=== PATIENT | male | born 1950 | race African-American/Black ===

== ENCOUNTER 2016-06-26 07:30 | Inpatient (IN) | payer OTHER, MEDICARE ==
[2016-08-14] MEDS ORDERED: VANCOMYCIN HCL 1,000 MG in DEXTROSE 5%-WATER 250 ML IV PRN (08:40)
[2016-08-14] MEDS ORDERED: CLINDAMYCIN 600 MG/D5W RTU 600 MG/50 ML RTUPB IV PRN (08:40)
[2016-08-14] MEDS ORDERED: OXYCODONE HCL SR 10 MG TABLET PO PRN (08:43)
[2016-08-14] MEDS ORDERED: LANSOPRAZOLE 15 MG TAB.RAP.DR PO PRN (08:43)
[2016-08-14] MEDS ORDERED: IBUPROFEN 800 MG in NORMAL SALINE 250 ML IV PRN (08:43)
[2016-08-14] MEDS ORDERED: SCOPOLAMINE HYDROBROMIDE 1.5 MG PATCH.TD72 TD PRN (08:44)
[2016-08-14] MEDS ORDERED: BUPIVACAINE INJ/PF LIPOSOME/PF 266 MG/20 ML SDV INFIL PRN (08:44)
[2016-08-14] MEDS ORDERED: LACTATED RINGERS 1000 ML IV PRN (09:00)
[2016-08-14] MEDS ORDERED: LIDOCAINE 0.5% INJ-PF (5 MG/ML) 50 ML SDV SUBCUT PRN (09:00)
[2016-08-14] MEDS ORDERED: THROMBIN (BOVINE) TOPICAL 20000 UNIT VIAL ONE (09:21)
[2016-08-14] MEDS ORDERED: THROMBIN (BOVINE) 5000 UNIT EPITAXIS KIT ONE (09:22)
[2016-08-14] MEDS ORDERED: BUPIVACAINE INJ/PF LIPOSOME/PF 266 MG/20 ML SDV ONE (09:22)
[2016-08-14] MEDS ORDERED: MIDAZOLAM 2 MG/2 ML INJ ONE (09:37)
[2016-08-14] MEDS ORDERED: PROPOFOL INJ 200 MG/20 ML VIAL IV ONE (09:38)
[2016-08-14] MEDS ORDERED: TRANEXAMIC ACID INJ/PF 1,000 MG/10 ML SDV IV ONE ×2 (09:38→13:30)
[2016-08-14] MEDS ORDERED: MORPHINE SULFATE 10 MG/ML INJ ONE (09:39)
[2016-08-14 10:18] LABS: POTASSIUM 4.2 mmol/L (3.6-5.0)
[2016-08-14] MEDS: BUPIVACAINE INJ/PF LIPOSOME/PF 266 MG/20 ML SDV IJ PRN ×2 (10:27→15:55)
[2016-08-14] MEDS ORDERED: MEPERIDINE HCL/PF INJ 25 MG/1 ML DISP.SYRIN IV PRN (10:48)
[2016-08-14] MEDS ORDERED: DIPHENHYDRAMINE HCL 50 MG/ML VIAL IV PRN ×2 (10:48→11:28)
[2016-08-14] MEDS ORDERED: FENTANYL CITRATE INJ/PF 100 MCG/2 ML AMPUL IV PRN ×3 (10:48)
[2016-08-14] MEDS ORDERED: OXYCODONE-ACETAMINOPHEN 5-325 MG TABLET PO PRN ×2 (10:48)
[2016-08-14] MEDS ORDERED: MORPHINE SULFATE 10 MG/ML INJ IV PRN ×3 (10:48→11:28)
[2016-08-14] MEDS ORDERED: PROMETHAZINE HCL INJ 25 MG/1 ML VIAL IV PRN ×2 (10:48)
[2016-08-14] MEDS ORDERED: TRAMADOL HCL 50 MG TABLET PO PRN (11:27)
[2016-08-14] MEDS ORDERED: ONDANSETRON 4 MG TAB.RAPDIS PO PRN (11:28)
[2016-08-14] MEDS ORDERED: MAG HYDROX/AL HYDROX/SIMETH SUSP 30 ML UDCUP PO PRN (11:28)
[2016-08-14] MEDS ORDERED: MORPHINE SULFATE 10 MG/ML INJ IM PRN (11:28)
[2016-08-14] MEDS ORDERED: RINGERS SOLUTION,LACTATED 1,000 ML IV PRN ×2 (11:28→17:38)
[2016-08-14] MEDS ORDERED: OXYCODONE HCL IR 5 MG TABLET PO PRN (11:28)
[2016-08-14] MEDS ORDERED: ZOLPIDEM TARTRATE 5 MG TABLET PO PRN (11:28)
[2016-08-14] MEDS ORDERED: ONDANSETRON HCL INJ/PF 4 MG/2 ML SDV IV PRN (11:28)
--- NOTE | 2016-08-14 11:40 | Operative Report ---
Operative Report DATE OF SURGERY: 08/14/16 PREOPERATIVE DIAGNOSIS: Knee arthritis OPERATION: Right knee arthroplasty SURGEON: MILTON IRVING ANESTHESIA: Spinal TISSUE REMOVED OR ALTERED: Bone to pathology ESTIMATED BLOOD LOSS: Under PROCEDURE: Implants used: Femur: Triathlon #8 CR femur Tibia: #7 tibia Tibial liner: 11 mm CS insert Patella: 40 millimeter oval patella Procedure with the patient supine on the operating table the right the limb is prepped and draped in a sterile fashion. The limb was elevated for exsanguination and the tourniquet inflated to 280 torr. A standard midline median parapatellar approach the knee is taken. Access is gained to the femoral canal through the intercondylar notch. Intramedullary alignment instrumentation used to resect 10 mm of distal femur in 5 of valgus. Sizing guide indicated a size 8 femur. Appropriate cutting jig is then used to fashion anterior posterior and chamfer cuts. A trial reduction femurs performed and this is judged to be adequate. Attention was next turned to the tibia. Using an extra medullary alignment system 9 millimeters was resected off the medial tibial plateau. This is sized to a size 7 tibia. A trial reduction was now performed with a 8 femur and a 7 tibia using a 11 millimeters spacer. It is full extension and central patellofemoral tracking. The articular surface the patella was next resected using an oscillating saw. All trial implants were removed. Polymethylmethacrylate is mixed and used to cement the above implants in place. On adequate curing the cement excess cement was removed the tourniquet was deflated hemostasis obtained the wound is then closed in layers using interrupted Vicryl followed by kiarra. A sterile compressive dressing was applied and the patient returned to recovery room in satisfactory condition.
--- NOTE | 2016-08-14 12:20 | RADIOLOGY REPORT (SQ) ---
EXAM DESCRIPTION: KNEE RIGHT 2 VIEWS COMPLETED DATE/TIME: 08/14/2016 12:11 pm REASON FOR STUDY: Post OP -Long Cassette in PACU M17.11 UNILATERAL PRIMARY OSTEOARTHRITIS, RIGHT KN EE COMPARISON: None. NUMBER OF VIEWS: Two view(s). TECHNIQUE: Digital radiographic images of the right knee post-procedure. LIMITATIONS: None. FINDINGS: BONES: No worrisome or unexpected findings post-procedure. DEVICE: Total knee arthroplasty SOFT TISSUES: No worrisome findings. Expected postoperative soft tissue changes. IMPRESSION: SATISFACTORY POSTOPERATIVE RIGHT KNEE. TECHNICAL DOCUMENTATION: JOB ID: [id number] [employer]- All Rights Reserved
[2016-08-14] MEDS ORDERED: METOCLOPRAMIDE HCL INJ/PF 10 MG/2 ML SDV ONE (12:25)
[2016-08-14] MEDS ORDERED: ONDANSETRON HCL INJ/PF 4 MG/2 ML SDV ONE (12:25)
[2016-08-14] MEDS ORDERED: GLYCOPYRROLATE INJ 0.4 MG/2 ML VIAL ONE (12:25)
[2016-08-14] MEDS ORDERED: LIDOCAINE 2% INJ-PF (20 MG/ML) 10 ML AMPUL ONE (12:25)
[2016-08-14 14:34] LABS: ARTERIAL BLOOD BASE EXCESS 1.2 mmol/L; ARTERIAL BLOOD O2 SATURATION 87.4 % (94-98)
[2016-08-14 16:01] LABS: ABSOLUTE EOSINOPHILS # (AUTO) 0.2 10^3/uL (0.0-0.6); ABSOLUTE LYMPHOCYTES (AUTO) 2.7 10^3/uL (0.5-4.7); ABSOLUTE MONOCYTES (AUTO) 0.9 10^3/uL (0.1-1.4); ABSOLUTE NEUT (AUTO) 4.4 10^3/uL (1.7-8.2); BASOPHILS % (AUTO) 0.3 % (0-2); EOSINOPHILS % (AUTO) 2.7 % (0-6); HEMATOCRIT 32.8 % (37.9-51.0); HEMOGLOBIN 10.4 g/dL (13.5-17.0); HGB HCT DIFFERENCE -1.6; LYMPHOCYTES % (AUTO) 32.7 % (13-45); MEAN CORPUSCULAR HGB CONC 31.8 g/dL (32.0-36.0); MEAN CORPUSCULAR VOLUME 88 fl (80-97); MONOCYTES % (AUTO) 10.5 % (3-13); RED BLOOD COUNT 3.73 10^6/uL (4.35-5.55); SEGMENTED NEUTROPHILS % (AUTO) 53.8 % (42-78); WHITE BLOOD COUNT 8.2 10^3/uL (4.0-10.5)
[2016-08-14 16:06] LABS: PROTHROMBIN TIME 13.6 SEC (11.4-15.4)
[2016-08-14] MEDS ORDERED: NORMAL SALINE INJ/PF 0.9% 10 ML SDV IV PRN (16:26)
[2016-08-14 16:41] LABS: CREATINE KINASE MB 0.49 ng/mL (<4.55)
[2016-08-14 16:42] LABS: TROPONIN I < 0.012 ng/mL
[2016-08-14] MEDS ORDERED: DEXTROSE 40% GEL 15 GM TUBE PO PRN ×2 (17:34)
[2016-08-14] MEDS ORDERED: GLUCAGON,HUMAN RECOMB 1 MG INJ IM PRN (17:34)
[2016-08-14] MEDS ORDERED: DEXTROSE 50%-WATER 25 GM/50 ML DISP.SYRIN IV PRN ×2 (17:34)
--- NOTE | 2016-08-14 17:39 | RADIOLOGY REPORT (SQ) ---
EXAM DESCRIPTION: CHEST SINGLE VIEW COMPLETED DATE/TIME: 08/14/2016 5:23 pm REASON FOR STUDY: resp failure COMPARISON: 03/09/2014 EXAM PARAMETERS: NUMBER OF VIEWS: One view. TECHNIQUE: Single frontal radiographic view of the chest acquired. RADIATION DOSE: NA LIMITATIONS: None. FINDINGS: LUNGS AND PLEURA: No opacities, masses or pneumothorax. No pleural effusion. MEDIASTINUM AND HILAR STRUCTURES: No masses. Contour normal. HEART AND VASCULAR STRUCTURES: The heart size is borderline. This represents a change. There is no alvaro CHF. BONES: No acute findings. HARDWARE: None in the chest. OTHER: No other significant finding. IMPRESSION: Borderline cardiomegaly without CHF. TECHNICAL DOCUMENTATION: JOB ID: [id number]
--- NOTE | 2016-08-14 17:51 | PDOC CONSULTATION ---
Consultation Consult Date: 08/14/16 Attending physician:: MILTON IRVING Consult reason:: Medical management History of Present Illness Admission Date/PCP: 08/14/16 08:00 BHASKAR TURPIN MD Patient complains of: Hypoxia, abnormal EKG History of Present Illness: RAJAT DANIEL is a 66 year old male, with history of obstructive sleep apnea , PTSD, hypertension, type 2 diabetes mellitus, underwent right knee arthroplasty earlier today and was transferred to telemetry [facility]. However while in the gay[place] the patient reportedly was apneic and hypoxic with O2 sat in the high 80s. No hypotension however was noted. An EKG was performed and the patient was placed on BiPAP. EKG revealed accelerated junctional rhythm. Pulmonary was consulted for the hypoxia. Cardiology was consulted for the abnormal EKG. Medicine was consulted for medical management. On evaluation of the patient he is currently awake alert and oriented to 3 spheres. He denies any specific complaints other than the pain from recent surgery on the right knee. He denies any chest congestion or coughing. He denies any shortness of breath at all. Denies any paroxysmal nocturnal dyspnea nor orthopnea. No chest pain at all. Lower extremity chronically swollen. No acute complaints at this time. Past Medical History Past Medical History: Medication reconciliation pending verification from the patient's pharmacist Cardiac Medical History: Reports: Coronary Artery Disease, Myocardial Infarction , Hypertension Denies: Atrial Fibrillation, Congestive Heart Failure, Hyperlipidema - takes Atorvastatin r/t cardiac stent, Peripheral Vascular Disease, Pulmonary Embolism , Heart Murmur Pulmonary Medical History: Reports: Sleep Apnea - CPAP Denies: Asthma, Bronchitis, Chronic Obstructive Pulmonary Disease (COPD), Pneumonia, Respiratory Failure, Tuberculosis Endocrine Medical History: Reports: Diabetes Mellitus Type 2 Denies: Hyperthyroidism, Hypothyroidism Renal/ Medical History: Denies: End Stage Renal Disease Malignancy Medical History: Denies: Lung Cancer GI Medical History: Denies: Crohn's Disease, Gastroesophageal Reflux Disease, Hiatal Hernia Musculoskeltal Medical History: Reports: Arthritis Denies: Fibromyalgia Psychiatric Medical History: Reports: Depression - Anxiety, Post Traumatic Stress Disorder Denies: Bipolar Disorder Past Surgical History Past Surgical History: Reports: Herniorrhaphy - Bilateral Inguinal/Femoral, Orthopedic Surgery Denies: Appendectomy, Cholecystectomy, Colostomy, Coronary Artery Bypass Graft, Gastric Bypass Surgery, Pacemaker, Tonsillectomy Social History Information Source: Patient Smoking Status: Never Smoker Frequency of Alcohol Use: Occasional Hx Recreational Drug Use: No Drugs: None Hx Prescription Drug Abuse: No - Advance Directive Resuscitation Status: Full Code Family History Family History: DM, Hypertension, Other - Heart failure Parental Family History Reviewed: Yes Children Family History Reviewed: Yes Sibling(s) Family History Reviewed.: Yes Medication/Allergy Home Medications: Aspirin [Aspirin 81 mg Chewable Tablet] 81 mg PO DAILY 07/11/12 Citalopram Hydrobromide [Celexa 40 mg Tablet] 40 mg PO QAM 07/11/12 Atorvastatin Calcium [Lipitor 20 mg Tablet] 20 mg PO QHS 06/15/16 Carvedilol 25 mg PO BID 06/15/16 Chromium Picolinate [Chromium Picolinate 200 mcg Capsule] 1 cap PO QAM 06/15/16 Furosemide [Lasix] 20 mg PO TID 06/15/16 Insulin Glargine,Hum.rec.anlog [Lantus] 80 units SQ QHS 06/15/16 Potassium Chloride 20 meq PO QAM 06/15/16 Tramadol HCl 50 mg PO DAILY PRN 06/15/16 Vitamin B Complex 1 each PO DAILY 06/15/16 l-Carnitine Fumarate [L-Carnitine] 200 mg PO QAM 06/15/16 Allergies/Adverse Reactions: Penicillins Allergy (Verified 06/15/16 07:53) Hives, SOB Review of Systems Constitutional: ABSENT: chills, fever(s), headache(s), weakness, weight gain, weight loss Eyes: ABSENT: visual disturbances Ears: ABSENT: hearing changes Nose, Mouth, and Throat: PRESENT: sore throat - From recent intubation. ABSENT : headache(s), mouth pain Cardiovascular: PRESENT: dyspnea on exertion - Chronic, edema - Chronic. ABSENT : chest pain, orthropnea, palpitations Respiratory: ABSENT: cough, dyspnea, hemoptysis, sputum Gastrointestinal: ABSENT: abdominal pain, constipation, diarrhea, hematemesis, hematochezia, melena, nausea, vomiting Genitourinary: ABSENT: difficulty urinating, dysuria, hematuria Musculoskeletal: ABSENT: joint swelling Integumentary: ABSENT: pruritus, rash Neurological: ABSENT: abnormal gait, abnormal speech, confusion, convulsions, dizziness, focal weakness, syncope Psychiatric: ABSENT: anxiety, depression, homidical ideation, suicidal ideation Endocrine: ABSENT: cold intolerance, heat intolerance, polydipsia, polyuria Hematologic/Lymphatic: ABSENT: easy bleeding, easy bruising Physical Exam Vital Signs: Temp Pulse Resp BP Pulse Ox 98.5 F 56 L 18 133/84 H 98 08/14/16 16:50 08/14/16 16:50 08/14/16 16:50 08/14/16 16:50 08/14/16 16:50 Pulse Oximeter Continuous Start: 08/14/16 14: 37 Freq: Status: Complete Document 08/14/16 14:37 [facility] (Rec: 08/14/16 14:38 [facility] ECART_RESP_) Pulse Oximetry Assessment Oxygen Saturation (92-100) 97 Oxygen Delivery Method Bi-pap Fraction of Inspired Oxygen (FIO2) 21 Equipment Usage Initial Set Up Continuous Pulse Oximeter 24 Hour Charge Charge Now Continuous SpO2 Machine # [id number] Pulse Oximeter Continuous Start: 08/14/16 15: 12 Freq: RTQ4 Status: Active Document 08/14/16 16:20 [facility] (Rec: 08/14/16 16:59 [facility] ECART_RESP_) Pulse Oximetry Assessment Oxygen Saturation (92-100) 95 Oxygen Delivery Method Bi-pap Equipment Usage Equipment in Use Continuous SpO2 Machine # 1 Intake & Output 08/13/16 08/14/16 08/15/16 06:59 06:59 06:59 Intake Total 4400 Output Total 2500 Balance 1900 General appearance: PRESENT: no acute distress, cooperative, morbidly obese, other - On CPAP Head exam: PRESENT: atraumatic, normocephalic Eye exam: PRESENT: conjunctiva pink, EOMI, PERRLA. ABSENT: scleral icterus Ear exam: PRESENT: normal external ear exam. ABSENT: drainage Mouth exam: PRESENT: moist, neck supple, tongue midline Throat exam: ABSENT: post pharyngeal erythema, tonsillar erythema Neck exam: ABSENT: carotid bruit, JVD, lymphadenopathy, thyromegaly Respiratory exam: PRESENT: clear to auscultation roman. ABSENT: rales, rhonchi, wheezes Cardiovascular exam: PRESENT: RRR, +S1, +S2. ABSENT: diastolic murmur, rubs, systolic murmur Pulses: PRESENT: normal dorsalis pedis pul Vascular exam: PRESENT: normal capillary refill GI/Abdominal exam: PRESENT: normal bowel sounds, soft. ABSENT: distended - Obese, guarding, mass - Limited due to increased abdominal girth, organolmegaly - Limited gently increased abdominal, rebound, tenderness Rectal exam: PRESENT: deferred Extremities exam: PRESENT: full ROM, other - Trace to +1 edema bilateral. ABSENT: calf tenderness, clubbing Neurological exam: PRESENT: alert, awake, oriented to person, oriented to place , oriented to time, oriented to situation, CN II-XII grossly intact. ABSENT: motor sensory deficit Psychiatric exam: PRESENT: appropriate affect, normal mood. ABSENT: homicidal ideation, suicidal ideation Skin exam: PRESENT: dry, intact, warm. ABSENT: cyanosis, rash Results Laboratory Results: 08/14/16 15:52 08/14/16 08:12 08/14/16 08/14/16 08/14/16 08:12 14:10 15:52 WBC 8.2 RBC 3.73 L Hgb 10.4 L Hct 32.8 L MCV 88 MCH 28.0 MCHC 31.8 L RDW 14.0 Plt Count 135 L Seg Neutrophils % 53.8 Lymphocytes % 32.7 Monocytes % 10.5 Eosinophils % 2.7 Basophils % 0.3 Absolute Neutrophils 4.4 Absolute Lymphocytes 2.7 Absolute Monocytes 0.9 Absolute Eosinophils 0.2 Absolute Basophils 0.0 Carbonic Acid 1.84 H HCO3/H2CO3 Ratio 15:1 ABG pH 7.29 L ABG pCO2 61.0 H ABG pO2 59.7 L ABG HCO3 28.9 H ABG O2 Saturation 87.4 L ABG Base Excess 1.2 FiO2 ROOM AIR Potassium 4.2 Glucose 124 H 08/14/16 08/14/16 15:52 15:52 Creatine Kinase 96 CK-MB (CK-2) 0.49 Troponin I < 0.012 Impressions: Knee X-Ray 08/14/16 11:36 IMPRESSION: SATISFACTORY POSTOPERATIVE RIGHT KNEE. Assessment & Plan - Diagnosis (1) Respiratory acidosis Is this a current diagnosis for this admission?: Yes (2) Obstructive sleep apnea Is this a current diagnosis for this admission?: Yes (3) Abnormal EKG Is this a current diagnosis for this admission?: Yes (4) Obesity hypoventilation syndrome Is this a current diagnosis for this admission?: Yes (5) Diabetes mellitus type 2 in obese Is this a current diagnosis for this admission?: Yes (6) Essential hypertension Is this a current diagnosis for this admission?: Yes (7) PTSD (post-traumatic stress disorder) Is this a current diagnosis for this admission?: Yes (8) Hepatitis C Qualifiers: Viral hepatitis chronicity: unspecified Hepatic coma status: without hepatic coma Qualified Code(s): B19.20 - Unspecified viral hepatitis C without hepatic coma Is this a current diagnosis for this admission?: Yes (9) BPH (benign prostatic hyperplasia) Qualifiers: Lower urinary tract symptom presence: presence of symptoms unspecified Qualified Code(s): N40.0 - Benign prostatic hyperplasia without lower urinary tract symptoms Is this a current diagnosis for this admission?: Yes (10) Anxiety and depression Is this a current diagnosis for this admission?: Yes - Time Time Spent: 50 to 70 Minutes - Plan Summary Plan Summary: The patient's hypoxia and apneic episode likely related to his obstructive sleep apnea with likely obesity hypoventilation syndrome with recent anesthesia. Expect acidosis to resolve when patient is fully awake and CPAP has been restored already. In the meantime bradycardia could be secondary to acidosis and expect the heart rate to improve as well. If not we may need to decrease the dose of his beta-joan. In the meantime I will put the patient on sliding scale insulin. Continue supplemental oxygen. Avoid too much sedation. Thank you so much for this consultation, we will follow the patient with you.
--- NOTE | 2016-08-14 17:59 | EKG REPORT ---
SEVERITY:- ABNORMAL ECG - BORDERLINE LEFT AXIS DEVIATION MOST LIKELY ECTOPIC ATRIAL BRADYCARDIA.GET 'ELVIN LEAD ' EKG. : Confirmed by: Yulia Ramos MD 14-Aug-2016 17:58:47
[2016-08-14] MEDS ORDERED: PREGABALIN 75 MG CAPSULE PO SCH (18:00)
[2016-08-14] MEDS ORDERED: (PENDING PHARMACY ID) (Carvedilol [Carvedilol] 25 MG) PO SCH (18:00)
[2016-08-14] MEDS: SENNOSIDES/DOCUSATE 8.6-50 MG 1 EACH TABLET PO SCH (18:13)
[2016-08-14] MEDS: FUROSEMIDE 20 MG TABLET PO SCH (18:13)
[2016-08-14 18:14] LABS: ARTERIAL BLOOD BASE EXCESS 1.5 mmol/L; ARTERIAL BLOOD O2 SATURATION 90.1 % (94-98)
[2016-08-14] MEDS: IBUPROFEN 800 MG in NORMAL SALINE 250 ML IV SCH (18:14)
[2016-08-14] MEDS: MORPHINE SULFATE 10 MG/ML INJ IV PRN (21:22)
[2016-08-14] MEDS: ATORVASTATIN CALCIUM 20 MG TABLET PO SCH (21:22)
[2016-08-14] MEDS: RIVAROXABAN 10 MG TABLET PO SCH (21:22)
[2016-08-14] MEDS: OXYCODONE HCL SR 10 MG TABLET PO SCH (21:23)
[2016-08-14] MEDS: PREGABALIN 75 MG CAPSULE PO SCH (21:23)
[2016-08-14] MEDS: CARVEDILOL 12.5 MG TABLET PO SCH (21:24)
[2016-08-14 22:54] LABS: CREATINE KINASE MB 0.61 ng/mL (<4.55)
[2016-08-14 22:58] LABS: TROPONIN I < 0.012 ng/mL
[2016-08-14] MEDS ORDERED: VANCOMYCIN HCL 1,000 MG in DEXTROSE 5%-WATER 250 ML IV ONE (23:30)
[2016-08-15] MEDS: IBUPROFEN 800 MG in NORMAL SALINE 250 ML IV SCH ×3 (02:14→17:43)
[2016-08-15] MEDS: MORPHINE SULFATE 10 MG/ML INJ IV PRN (02:23)
[2016-08-15 04:16] LABS: HEMATOCRIT 32.4 % (37.9-51.0); HEMOGLOBIN 10.3 g/dL (13.5-17.0); HGB HCT DIFFERENCE -1.5; MEAN CORPUSCULAR HEMOGLOBIN 28.1 pg (27.0-33.4); MEAN CORPUSCULAR VOLUME 88 fl (80-97); RED BLOOD COUNT 3.68 10^6/uL (4.35-5.55); RED CELL DISTRIBUTION WIDTH 13.9 % (11.5-14.0); WHITE BLOOD COUNT 9.4 10^3/uL (4.0-10.5)
[2016-08-15 04:36] LABS: ALBUMIN 2.9 g/dL (3.5-5.0); ANION GAP 8 (5-19); BLOOD UREA NITROGEN 22 mg/dL (7-20); CALCIUM 8.5 mg/dL (8.4-10.2); CARBON DIOXIDE 26 mmol/L (22-30); CHLORIDE 103 mmol/L (98-107); CREATINE KINASE 85 U/L (55-170); GLUCOSE 164 mg/dL (75-110); MAGNESIUM 1.7 mg/dL (1.6-2.3); PHOSPHORUS 3.9 mg/dL (2.5-4.5); POTASSIUM 4.6 mmol/L (3.6-5.0); SODIUM 136.5 mmol/L (137-145)
[2016-08-15 04:46] LABS: CREATINE KINASE MB 0.43 ng/mL (<4.55)
[2016-08-15 04:50] LABS: TROPONIN I < 0.012 ng/mL
[2016-08-15] MEDS: LANSOPRAZOLE 30 MG TAB.RAP.DR PO SCH (06:25)
[2016-08-15 06:43] LABS: ARTERIAL BLOOD BASE EXCESS 0.6 mmol/L; ARTERIAL BLOOD O2 SATURATION 98.6 % (94-98)
[2016-08-15] MEDS ORDERED: (PENDING PHARMACY ID) (Citalopram Hydrobromide [Celexa 40 Mg Tablet] 40 MG) PO SCH (08:00)
[2016-08-15] MEDS ORDERED: CHROMIUM PICOLINATE PO SCH (08:00)
[2016-08-15] MEDS ORDERED: [UNRECOGNIZED DRUG - OTHER] PO SCH (08:00)
[2016-08-15] MEDS: POTASSIUM CHLORIDE 10 MEQ TABLET.SA PO SCH (08:04)
[2016-08-15] MEDS: CITALOPRAM HYDROBROMIDE 20 MG TABLET PO SCH (08:05)
[2016-08-15] MEDS: CARVEDILOL 12.5 MG TABLET PO SCH ×2 (09:30→22:21)
[2016-08-15] MEDS: PRENATAL VITAMIN W-O CA NO5/FE FUMARATE/FA CAPSULE PO SCH (09:31)
[2016-08-15] MEDS: ASPIRIN 81 MG TABLET, CHEWABLE PO SCH (09:31)
[2016-08-15] MEDS: SENNOSIDES/DOCUSATE 8.6-50 MG 1 EACH TABLET PO SCH ×2 (09:31→17:42)
[2016-08-15] MEDS: OXYCODONE HCL SR 10 MG TABLET PO SCH ×2 (09:32→22:21)
[2016-08-15] MEDS: PREGABALIN 75 MG CAPSULE PO SCH ×2 (09:32→22:21)
[2016-08-15] MEDS: FUROSEMIDE 20 MG TABLET PO SCH ×3 (09:32→17:41)
[2016-08-15] MEDS ORDERED: MULTIVIT-STRESS FORMULA/ZINC TABLET PO SCH (10:00)
[2016-08-15] MEDS ORDERED: (PENDING PHARMACY ID) (Vitamin B Complex [Vitamin B Complex] 1 EACH) PO SCH (10:00)
--- NOTE | 2016-08-15 12:13 | PDOC CONSULTATION ---
Consultation Consult Date: 08/14/16 Attending physician:: MILTON IRVING Consult reason:: Abnormal EKG History of Present Illness Admission Date/PCP: 08/14/16 08:00 BHASKAR TURPIN MD Patient complains of: Shortness of breath History of Present Illness: RAJAT DANIEL is a 66 year old male, with history of obstructive sleep apnea , PTSD, hypertension, type 2 diabetes mellitus, underwent right knee arthroplasty earlier today and was transferred to telemetry [facility]. However while in the [facility] the patient reportedly was apneic and hypoxic with O2 sat in the high 80s. No hypotension however was noted. An EKG was performed and the patient was placed on BiPAP. EKG revealed accelerated junctional rhythm. Pulmonary was consulted for the hypoxia. Cardiology was consulted for the abnormal EKG. Medicine was consulted for medical management. On evaluation of the patient he is currently awake alert and oriented 3. He denies any specific complaints other than the pain from recent surgery on the right knee. He denies any chest congestion or coughing. He denies any shortness of breath at all. Denies any paroxysmal nocturnal dyspnea nor orthopnea. No chest pain at all. Lower extremity chronically swollen. No acute complaints at this time. On my review of EKG, patient actually was noted to have sinus bradycardia. A repeat EKG was ordered to be performed next morning. Past Medical History Cardiac Medical History: Reports: Coronary Artery Disease, Myocardial Infarction , Hypertension Denies: Atrial Fibrillation, Congestive Heart Failure, Hyperlipidema - takes Atorvastatin r/t cardiac stent, Peripheral Vascular Disease, Pulmonary Embolism , Heart Murmur Pulmonary Medical History: Reports: Sleep Apnea - CPAP Denies: Asthma, Bronchitis, Chronic Obstructive Pulmonary Disease (COPD), Pneumonia, Respiratory Failure, Tuberculosis Endocrine Medical History: Reports: Diabetes Mellitus Type 2 Denies: Hyperthyroidism, Hypothyroidism Renal/ Medical History: Denies: End Stage Renal Disease Malignancy Medical History: Denies: Lung Cancer GI Medical History: Denies: Crohn's Disease, Gastroesophageal Reflux Disease, Hiatal Hernia Musculoskeltal Medical History: Reports: Arthritis Denies: Fibromyalgia Psychiatric Medical History: Reports: Depression - Anxiety, Post Traumatic Stress Disorder Denies: Bipolar Disorder Past Surgical History Past Surgical History: Reports: Herniorrhaphy - Bilateral Inguinal/Femoral, Orthopedic Surgery Denies: Appendectomy, Cholecystectomy, Colostomy, Coronary Artery Bypass Graft, Gastric Bypass Surgery, Pacemaker, Tonsillectomy Social History Information Source: Patient Smoking Status: Never Smoker Frequency of Alcohol Use: Occasional Hx Recreational Drug Use: No Drugs: None Hx Prescription Drug Abuse: No - Advance Directive Resuscitation Status: Full Code Family History Family History: DM, Hypertension, Other - Heart failure Parental Family History Reviewed: Yes Children Family History Reviewed: Yes Sibling(s) Family History Reviewed.: Yes Medication/Allergy Home Medications: Aspirin [Aspirin 81 mg Chewable Tablet] 81 mg PO DAILY 07/11/12 Citalopram Hydrobromide [Celexa 40 mg Tablet] 40 mg PO QAM 07/11/12 Atorvastatin Calcium [Lipitor 20 mg Tablet] 20 mg PO QHS 06/15/16 Carvedilol 25 mg PO BID 06/15/16 Chromium Picolinate [Chromium Picolinate 200 mcg Capsule] 1 cap PO QAM 06/15/16 Furosemide [Lasix] 20 mg PO TID 06/15/16 Insulin Glargine,Hum.rec.anlog [Lantus] 80 units SQ QHS 06/15/16 Potassium Chloride 20 meq PO QAM 06/15/16 Tramadol HCl 50 mg PO DAILY PRN 06/15/16 Vitamin B Complex 1 each PO DAILY 06/15/16 l-Carnitine Fumarate [L-Carnitine] 200 mg PO QAM 06/15/16 Allergies/Adverse Reactions: Penicillins Allergy (Verified 06/15/16 07:53) JOVANI Lowery Review of Systems Review of Systems: Please see history of present illness and past medical history as wall. Constitutional: No fever or chills reported. Head : No recent chronic headaches, recent head injury. Eyes: No recent eye pain, diplopia, redness, discharge, acute visual changes. Ears: No recent chronic ear pain, acute hearing loss, ear discharge. Oral cavity: No recent ulcerations, bleeding, oral cavity discomfort. Patient has noted some sore throat. Neck: No recent acute neck pain reported. Hematologic: No recent easy bruising or bleeding or hematologic malignancy reported. Lymphatic: No recent lymphatic malignancy, chronic lymphadenopathy reported yet Cardiovascular system review: See history of present illness. Chronic pedal edema noted. Respiratory system review: No recent chronic cough, hemoptysis, blood clots in the lungs reported. Mild Shortness of breath on exertion. Describes history of sleep apnea. Gastrointestinal system review: Negative for any recent acute or chronic abdominal pain, hematemesis, melena, recent change in bowel habits. Genitourinary system review: No recent acute or chronic hematuria, flank pain, UTI etc. reported. Skin system review: Negative for any recent abnormal bruising, no rash, no pruritus reported. Has noted vitiligo. Neurologic: No prior history of strokes, mini strokes, seizure disorder. Psychologic: No history of major psychosis or major depression reported. Musculoskeletal: Minor aches and pains reported. No acute joint swelling reported. Endocrine: No recent polyuria, polydipsia, recent heat or cold intolerance. Physical Exam Vital Signs: Temp Pulse Resp BP Pulse Ox 98.1 F 53 L 18 134/82 H 100 08/14/16 17:50 08/14/16 17:50 08/14/16 17:50 08/14/16 17:50 08/14/16 17:50 Pulse Oximeter Continuous Start: 08/14/16 14: 37 Freq: Status: Complete Document 08/14/16 14:37 [facility] (Rec: 08/14/16 14:38 [facility] ECART_RESP_) Pulse Oximetry Assessment Oxygen Saturation (92-100) 97 Oxygen Delivery Method Bi-pap Fraction of Inspired Oxygen (FIO2) 21 Equipment Usage Initial Set Up Continuous Pulse Oximeter 24 Hour Charge Charge Now Continuous SpO2 Machine # [id number] Pulse Oximeter Continuous Start: 08/14/16 15: 12 Freq: RTQ4 Status: Active Document 08/14/16 16:20 [facility] (Rec: 08/14/16 16:59 [facility] ECART_RESP_) Pulse Oximetry Assessment Oxygen Saturation (92-100) 95 Oxygen Delivery Method Bi-pap Equipment Usage Equipment in Use Continuous SpO2 Machine # 1 Intake & Output 08/13/16 08/14/16 08/15/16 06:59 06:59 06:59 Intake Total 4400 Output Total 2500 Balance 1900 Exam: GENERAL: well-nourished and in no acute distress. Alert and oriented x3 HEAD: Atraumatic, normocephalic. EYES: Pupils equal round and reactive to light, extraocular movements intact, sclera anicteric, conjunctiva are normal. ENT: TMs normal, nares patent, oropharynx clear without exudates. Moist mucous membranes. No oral ulcerations or bleeding gums noted NECK: supple without lymphadenopathy. Trachea is central. No cervical or axillary lymphadenopathy noted. Carotids are 2+, JVD WNL LUNGS: Respiration seems nonlabored, no significant accessory muscle action noted. Breath sounds clear to auscultation bilaterally and equal noted. No wheezes rales or rhonchi noted. No significant dullness noted on percussion. CHEST: Palpation of the chest wall shows no significant chest wall tenderness. No other significant abnormalities noted. 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 ABDOMEN: Soft, no significant tenderness appreciated, normoactive bowel sounds. No guarding, no rebound. No rigidity noted . No masses appreciated. EXTREMITIES: Pedal pulses are 1-2+, no calf tenderness noted. No clubbing or cyanosis. 1+ pedal edema noted NEUROLOGICAL: Focused neurological exam showed no significant neurologic deficit. Normal speech, no focal weakness appreciated. PSYCH: Normal mood, normal affect. Judgment and insight within normal limits. SKIN: No significant ecchymosis, ulcerations or signs of pruritus noted. Vitiligo rash noted scattered, more on the lower extremity. MUSCULOSKELETAL EXAM: No significant joint swelling noted. Results Laboratory Results: 08/14/16 15:52 08/14/16 08:12 08/14/16 08/14/16 08/14/16 08:12 14:10 15:52 WBC 8.2 RBC 3.73 L Hgb 10.4 L Hct 32.8 L MCV 88 MCH 28.0 MCHC 31.8 L RDW 14.0 Plt Count 135 L Seg Neutrophils % 53.8 Lymphocytes % 32.7 Monocytes % 10.5 Eosinophils % 2.7 Basophils % 0.3 Absolute Neutrophils 4.4 Absolute Lymphocytes 2.7 Absolute Monocytes 0.9 Absolute Eosinophils 0.2 Absolute Basophils 0.0 Carbonic Acid 1.84 H HCO3/H2CO3 Ratio 15:1 ABG pH 7.29 L ABG pCO2 61.0 H ABG pO2 59.7 L ABG HCO3 28.9 H ABG O2 Saturation 87.4 L ABG Base Excess 1.2 FiO2 ROOM AIR Potassium 4.2 Glucose 124 H 08/14/16 17:55 WBC RBC Hgb Hct MCV MCH MCHC RDW Plt Count Seg Neutrophils % Lymphocytes % Monocytes % Eosinophils % Basophils % Absolute Neutrophils Absolute Lymphocytes Absolute Monocytes Absolute Eosinophils Absolute Basophils Carbonic Acid 1.64 H HCO3/H2CO3 Ratio 17:1 ABG pH 7.33 L ABG pCO2 54.5 H ABG pO2 62.6 L ABG HCO3 28.2 H ABG O2 Saturation 90.1 L ABG Base Excess 1.5 FiO2 21% Potassium Glucose 08/14/16 08/14/16 15:52 15:52 Creatine Kinase 96 CK-MB (CK-2) 0.49 Troponin I < 0.012 EKG Comments: Sinus bradycardia, no acute ST-T wave changes noted. Impressions: Chest X-Ray 08/14/16 00:00 IMPRESSION: Borderline cardiomegaly without CHF. Knee X-Ray 08/14/16 11:36 IMPRESSION: SATISFACTORY POSTOPERATIVE RIGHT KNEE. Assessment & Plan - Diagnosis (1) Bradycardia Is this a current diagnosis for this admission?: Yes (2) Abnormal EKG Is this a current diagnosis for this admission?: Yes (3) Coronary artery disease Qualifiers: Coronary Disease-Associated Artery/Lesion type: [place] artery [place] vs. transplanted heart: [place] heart Associated angina: angina presence unspecified Qualified Code(s): I25.10 - Atherosclerotic heart disease of [place] coronary artery without angina pectoris Is this a current diagnosis for this admission?: Yes (4) Diabetes mellitus type 2 in obese Is this a current diagnosis for this admission?: Yes (5) Essential hypertension Is this a current diagnosis for this admission?: Yes (6) Obstructive sleep apnea Is this a current diagnosis for this admission?: Yes (7) Acute and chronic respiratory failure Qualifiers: Respiratory failure complication: hypoxia and hypercapnia Qualified Code(s): J96.21 - Acute and chronic respiratory failure with hypoxia Is this a current diagnosis for this admission?: Yes (8) Abnormal electrocardiogram Is this a current diagnosis for this admission?: Yes (9) Dyslipidemia Is this a current diagnosis for this admission?: Yes - Notes Notes: pvc monitor, this was reviewed. Twelve-lead EKG, these were reviewed. Chest x-ray: Results reviewed. Medications: These were reviewed. Labs: These were reviewed. Nurse informed to avoid beta blockers should patient have heart rate less than 60. 2D echo will be ordered if none has been noted to be performed recently. Treatment/care plan: This was reviewed and discussed with involved personnel in the care of this patient and patient. Abnormal electrocardiogram: EKG reviewed. No acute ST-T wave changes noted. Bradycardia probably related to hypoxemia. Possible contribution from medication. Bradycardia: Currently stable and mild. Patient noted to have sinus bradycardia. Currently asymptomatic and patient maintaining adequate blood pressure. Carvedilol was ordered to be held. Acute on chronic respiratory failure: Patient has history of COPD and also sleep apnea. Patient placed on positive pressure noninvasive ventilation. Pulmonary following. This has improved following noninvasive ventilation. Hypertension: Currently stable. Continue monitoring. Blood pressure goal is 140/90 or less. After 2D echo of goal of blood pressure. Dyslipidemia: Continue with statin therapy. CAD: Currently clinically stable without any chest pain or any significant EKG. Continue to follow with risk factor modification and medical management. - Time Time Spent: 50 to 70 Minutes - CODE STATUS was discussed, patient remains full code. Surrogate decision-maker unchanged. Multiple medical problems were addressed. More than 50% of the time spent coordinating care, discussing management plans with involved caregivers. Management plans discussed with involved personnels. Medical decision making was of moderate to high complexity , patient's has multiple comorbidities. Medications reviewed and adjusted accordingly: Yes
--- NOTE | 2016-08-15 12:19 | PDOC PROGRESS REPORT ---
Subjective Progress Note for:: 08/15/16 Subjective:: Patient seems to be doing better with gradual improvement. Pt is denying any chest arm or neck discomfort. Patient denying any PND, orthopnea. Patient denied any sustained palpitations, dizziness, syncope, near syncope. Patient denying any fever chills. Patient denying any other significant discomfort. Patient is maintaining sinus rhythm. Review of systems: Rest review of systems negative. Medications: Medications have been reviewed. Physical Exam Vital Signs: Temp Pulse Resp BP Pulse Ox 98.8 F 71 12 111/76 99 08/15/16 07:50 08/15/16 07:50 08/15/16 07:50 08/15/16 07:50 08/15/16 10:05 Pulse Oximeter Continuous Start: 08/14/16 14: 37 Freq: Status: Complete Document 08/14/16 14:37 [facility] (Rec: 08/14/16 14:38 [facility] ECART_RESP_) Pulse Oximetry Assessment Oxygen Saturation (92-100) 97 Oxygen Delivery Method Bi-pap Fraction of Inspired Oxygen (FIO2) 21 Equipment Usage Initial Set Up Continuous Pulse Oximeter 24 Hour Charge Charge Now Continuous SpO2 Machine # [id number] Pulse Oximeter Continuous Start: 08/14/16 15: 12 Freq: RTQ4 Status: Active Document 08/15/16 10:05 [facility] (Rec: [facility]15/16 10:[facility] Pulse Oximetry Assessment Oxygen Saturation (92-100) 99 Oxygen Flow Rate (L/min) 2 Oxygen Delivery Method Nasal Cannula Equipment Usage Equipment in Use Continuous SpO2 Machine # [id number] Intake & Output 08/14/16 08/15/16 08/16/16 06:59 06:59 06:59 Intake Total 6350 Output Total 3030 Balance 3320 Exam: GENERAL: well-nourished and in no acute distress. Alert and oriented x3 HEAD: Atraumatic, normocephalic. EYES: Pupils equal round and reactive to light, extraocular movements intact, sclera anicteric, conjunctiva are normal. ENT: TMs normal, nares patent, oropharynx clear without exudates. Moist mucous membranes. No oral ulcerations or bleeding gums noted NECK: supple without lymphadenopathy. Trachea is central. No cervical or axillary lymphadenopathy noted. Carotids are 2+, JVD WNL LUNGS: Respiration seems nonlabored, no significant accessory muscle action noted. Breath sounds clear to auscultation bilaterally and equal noted. No wheezes rales or rhonchi noted. No significant dullness noted on percussion. CHEST: Palpation of the chest wall shows no significant chest wall tenderness. No other significant abnormalities noted. 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 ABDOMEN: Soft, no significant tenderness appreciated, normoactive bowel sounds. No guarding, no rebound. No rigidity noted . No masses appreciated. EXTREMITIES: Pedal pulses are 1-2+, no calf tenderness noted. No clubbing or cyanosis.trace to 1+ pedal edema noted NEUROLOGICAL: Focused neurological exam showed no significant neurologic deficit. Normal speech, no focal weakness appreciated. PSYCH: Normal mood, normal affect. Judgment and insight within normal limits. SKIN: No significant ecchymosis, rash, ulcerations or signs of pruritus noted. Scar of recent surgery noted. MUSCULOSKELETAL EXAM: No significant joint swelling noted. Results Laboratory Results: 08/15/16 03:57 08/15/16 03:57 08/14/16 08/14/16 08/14/16 14:10 15:52 17:55 WBC 8.2 RBC 3.73 L Hgb 10.4 L Hct 32.8 L MCV 88 MCH 28.0 MCHC 31.8 L RDW 14.0 Plt Count 135 L Seg Neutrophils % 53.8 Lymphocytes % 32.7 Monocytes % 10.5 Eosinophils % 2.7 Basophils % 0.3 Absolute Neutrophils 4.4 Absolute Lymphocytes 2.7 Absolute Monocytes 0.9 Absolute Eosinophils 0.2 Absolute Basophils 0.0 Carbonic Acid 1.84 H 1.64 H HCO3/H2CO3 Ratio 15:1 17:1 ABG pH 7.29 L 7.33 L ABG pCO2 61.0 H 54.5 H ABG pO2 59.7 L 62.6 L ABG HCO3 28.9 H 28.2 H ABG O2 Saturation 87.4 L 90.1 L ABG Base Excess 1.2 1.5 FiO2 ROOM AIR 21% Sodium Potassium Chloride Carbon Dioxide Anion Gap BUN Creatinine Est GFR ( Amer) Est GFR (Non-Af Amer) Glucose Calcium Phosphorus Magnesium Albumin 08/15/16 08/15/1617 03:57 03:57 06:25 WBC 9.4 RBC 3.68 L Hgb 10.3 L Hct 32.4 L MCV 88 MCH 28.1 MCHC 32.0 RDW 13.9 Plt Count 120 L Seg Neutrophils % Lymphocytes % Monocytes % Eosinophils % Basophils % Absolute Neutrophils Absolute Lymphocytes Absolute Monocytes Absolute Eosinophils Absolute Basophils Carbonic Acid 1.47 H HCO3/H2CO3 Ratio 18:1 ABG pH 7.36 ABG pCO2 48.7 H ABG pO2 136.8 H ABG HCO3 26.6 H ABG O2 Saturation 98.6 H ABG Base Excess 0.6 FiO2 3L Sodium 136.5 L Potassium 4.6 Chloride 103 Carbon Dioxide 26 Anion Gap 8 BUN 22 H Creatinine 1.70 H Est GFR ( Amer) 49 L Est GFR (Non-Af Amer) 40 L Glucose 164 H Calcium 8.5 Phosphorus 3.9 Magnesium 1.7 Albumin 2.9 L 08/14/16 08/14/16 08/14/16 15:52 15:52 21:57 Creatine Kinase 96 99 CK-MB (CK-2) 0.49 Troponin I < 0.012 08/14/16 08/15/16 08/15/16 21:57 03:57 03:57 Creatine Kinase 85 CK-MB (CK-2) 0.61 0.43 Troponin I < 0.012 < 0.012 Impressions: Chest X-Ray 08/14/16 00:00 IMPRESSION: Borderline cardiomegaly without CHF. Knee X-Ray 08/14/16 11:36 IMPRESSION: SATISFACTORY POSTOPERATIVE RIGHT KNEE. Assessment & Plan - Diagnosis (1) Bradycardia Is this a current diagnosis for this admission?: Yes (2) Abnormal EKG Is this a current diagnosis for this admission?: Yes (3) Coronary artery disease Qualifiers: Coronary Disease-Associated Artery/Lesion type: [place] artery [place] vs. transplanted heart: [place] heart Associated angina: angina presence unspecified Qualified Code(s): I25.10 - Atherosclerotic heart disease of [place] coronary artery without angina pectoris Is this a current diagnosis for this admission?: Yes (4) Diabetes mellitus type 2 in obese Is this a current diagnosis for this admission?: Yes (5) Essential hypertension Is this a current diagnosis for this admission?: Yes (6) Obstructive sleep apnea Is this a current diagnosis for this admission?: Yes (7) Acute and chronic respiratory failure Qualifiers: Respiratory failure complication: hypoxia and hypercapnia Qualified Code(s): J96.21 - Acute and chronic respiratory failure with hypoxia Is this a current diagnosis for this admission?: Yes (8) Abnormal electrocardiogram Is this a current diagnosis for this admission?: Yes (9) Dyslipidemia Is this a current diagnosis for this admission?: Yes - Notes Notes: residential monitor, this was reviewed. Twelve-lead EKG, these were reviewed. Chest x-ray: Results reviewed. Medications: These were reviewed. Labs: These were reviewed. Treatment/care plan: This was reviewed and discussed with involved personnel in the care of this patient and patient. 2D echo ordered as they could not find one in the system. Today's 12-leadAbnormal electrocardiogram: Today's 12-lead EKG reviewed. Heart rate improved. No acute ST-T wave changes noted. Bradycardia was probably related to hypoxemia. Possible contribution from medication. Bradycardia: Currently stable and improved. Continue to monitor patient. Carvedilol was ordered to be held, if heart rate less than 60. Acute on chronic respiratory failure: Patient has history of COPD and also sleep apnea. This has improved. Hypertension: Currently stable. Continue monitoring. Blood pressure goal is 140/90 or less. After 2D echo of goal of blood pressure. Dyslipidemia: Continue with statin therapy. CAD: Currently clinically stable without any chest pain or any significant EKG. Continue to follow with risk factor modification and medical management. - Time Time with patient: 15-25 minutes Medications reviewed and adjusted accordingly: Yes
--- NOTE | 2016-08-15 12:39 | EKG REPORT ---
SEVERITY:- NORMAL ECG - SINUS RHYTHM : Confirmed by: Yulia Ramos MD 15-Aug-2016 12:39:27
--- NOTE | 2016-08-15 13:24 | PDOC PROGRESS REPORT ---
Subjective Progress Note for:: 08/15/16 Subjective:: Patient denies complaints except for some knee pain Physical Exam Vital Signs: Temp Pulse Resp BP Pulse Ox 98.8 F 71 12 111/76 98 08/15/16 07:50 08/15/16 07:50 08/15/16 07:50 08/15/16 07:50 08/15/16 12:45 Pulse Oximeter Continuous Start: 08/14/16 14: 37 Freq: Status: Complete Document 08/14/16 14:37 [facility] (Rec: 08/14/16 14:38 [facility] ECART_RESP_) Pulse Oximetry Assessment Oxygen Saturation (92-100) 97 Oxygen Delivery Method Bi-pap Fraction of Inspired Oxygen (FIO2) 21 Equipment Usage Initial Set Up Continuous Pulse Oximeter 24 Hour Charge Charge Now Continuous SpO2 Machine # [id number] Pulse Oximeter Continuous Start: 08/14/16 15: 12 Freq: RTQ4 Status: Active Document 08/15/16 12:45 [facility] (Rec: 08/15/16 12:46 [facility] ECART_RESP_) Pulse Oximetry Assessment Oxygen Saturation (92-100) 98 Oxygen Flow Rate (L/min) 2 Oxygen Delivery Method Nasal Cannula Equipment Usage Equipment in Use Continuous SpO2 Machine # [id number] Intake & Output 08/14/16 08/15/16 08/16/16 06:59 06:59 06:59 Intake Total 6350 Output Total 3030 Balance 3320 General appearance: PRESENT: no acute distress Eye exam: PRESENT: conjunctiva pink. ABSENT: scleral icterus Mouth exam: PRESENT: moist, tongue midline Neck exam: ABSENT: JVD Respiratory exam: PRESENT: clear to auscultation roman. ABSENT: rales, rhonchi, wheezes Cardiovascular exam: PRESENT: RRR. ABSENT: diastolic murmur, rubs, systolic murmur GI/Abdominal exam: PRESENT: normal bowel sounds, soft. ABSENT: distended, guarding, mass, organolmegaly, rebound, tenderness Extremities exam: ABSENT: calf tenderness, clubbing, pedal edema Neurological exam: PRESENT: alert, awake, oriented to person, oriented to place , oriented to time, oriented to situation, CN II-XII grossly intact. ABSENT: motor sensory deficit Psychiatric exam: PRESENT: appropriate affect Skin exam: PRESENT: dry, intact, warm, other - Dressing in place on the knee. ABSENT: cyanosis, rash Results Laboratory Results: 08/15/16 03:57 08/15/16 03:57 08/14/16 08/14/16 08/14/16 14:10 15:52 17:55 WBC 8.2 RBC 3.73 L Hgb 10.4 L Hct 32.8 L MCV 88 MCH 28.0 MCHC 31.8 L RDW 14.0 Plt Count 135 L Seg Neutrophils % 53.8 Lymphocytes % 32.7 Monocytes % 10.5 Eosinophils % 2.7 Basophils % 0.3 Absolute Neutrophils 4.4 Absolute Lymphocytes 2.7 Absolute Monocytes 0.9 Absolute Eosinophils 0.2 Absolute Basophils 0.0 Carbonic Acid 1.84 H 1.64 H HCO3/H2CO3 Ratio 15:1 17:1 ABG pH 7.29 L 7.33 L ABG pCO2 61.0 H 54.5 H ABG pO2 59.7 L 62.6 L ABG HCO3 28.9 H 28.2 H ABG O2 Saturation 87.4 L 90.1 L ABG Base Excess 1.2 1.5 FiO2 ROOM AIR 21% Sodium Potassium Chloride Carbon Dioxide Anion Gap BUN Creatinine Est GFR ( Amer) Est GFR (Non-Af Amer) Glucose Calcium Phosphorus Magnesium Albumin 08/15/16 08/15/16 08/15/16 03:57 03:57 06:25 WBC 9.4 RBC 3.68 L Hgb 10.3 L Hct 32.4 L MCV 88 MCH 28.1 MCHC 32.0 RDW 13.9 Plt Count 120 L Seg Neutrophils % Lymphocytes % Monocytes % Eosinophils % Basophils % Absolute Neutrophils Absolute Lymphocytes Absolute Monocytes Absolute Eosinophils Absolute Basophils Carbonic Acid 1.47 H HCO3/H2CO3 Ratio 18:1 ABG pH 7.36 ABG pCO2 48.7 H ABG pO2 136.8 H ABG HCO3 26.6 H ABG O2 Saturation 98.6 H ABG Base Excess 0.6 FiO2 3L Sodium 136.5 L Potassium 4.6 Chloride 103 Carbon Dioxide 26 Anion Gap 8 BUN 22 H Creatinine 1.70 H Est GFR ( Amer) 49 L Est GFR (Non-Af Amer) 40 L Glucose 164 H Calcium 8.5 Phosphorus 3.9 Magnesium 1.7 Albumin 2.9 L 08/14/16 08/14/16 08/14/16 15:52 15:52 21:57 Creatine Kinase 96 99 CK-MB (CK-2) 0.49 Troponin I < 0.012 NT-Pro-B Natriuret Pep 08/14/16 08/15/16 08/15/16 21:57 03:57 03:57 Creatine Kinase 85 CK-MB (CK-2) 0.61 0.43 Troponin I < 0.012 < 0.012 NT-Pro-B Natriuret Pep 08/15/16 03:57 Creatine Kinase CK-MB (CK-2) Troponin I NT-Pro-B Natriuret Pep 282 Impressions: Chest X-Ray 08/14/16 00:00 IMPRESSION: Borderline cardiomegaly without CHF. Knee X-Ray 08/14/16 11:36 IMPRESSION: SATISFACTORY POSTOPERATIVE RIGHT KNEE. Assessment & Plan - Diagnosis (1) Acute and chronic respiratory failure Qualifiers: Respiratory failure complication: hypoxia and hypercapnia Qualified Code(s): J96.21 - Acute and chronic respiratory failure with hypoxia Is this a current diagnosis for this admission?: YesPlan: Likely secondary to obstructive sleep apnea. (2) Obstructive sleep apnea Is this a current diagnosis for this admission?: YesPlan: Continue with CPAP. (3) Bradycardia Is this a current diagnosis for this admission?: YesPlan: Likely secondary to hypoxia (4) Coronary artery disease Qualifiers: Coronary Disease-Associated Artery/Lesion type: [place] artery [place] vs. transplanted heart: [place] heart Associated angina: angina presence unspecified Qualified Code(s): I25.10 - Atherosclerotic heart disease of [place] coronary artery without angina pectoris Is this a current diagnosis for this admission?: YesPlan: Denies any chest pain (5) Diabetes mellitus type 2 in obese Is this a current diagnosis for this admission?: YesPlan: Continue with sliding scale insulin. (6) Essential hypertension Is this a current diagnosis for this admission?: Yes (7) PTSD (post-traumatic stress disorder) Is this a current diagnosis for this admission?: Yes (8) BPH (benign prostatic hyperplasia) Qualifiers: Lower urinary tract symptom presence: presence of symptoms unspecified Qualified Code(s): N40.0 - Benign prostatic hyperplasia without lower urinary tract symptoms Is this a current diagnosis for this admission?: Yes - Time Time Spent with patient: 25-34 minutes - Inpatient Certification Medical Necessity: Need Close Monitoring Due to Risk of Patient Decompensation
[2016-08-15] MEDS: INSULIN REG, HUMAN 100 UNIT/ML 3 ML VIAL (PYX) SUBCUT PRN (17:41)
[2016-08-15] MEDS: ATORVASTATIN CALCIUM 20 MG TABLET PO SCH (22:21)
[2016-08-15] MEDS: RIVAROXABAN 10 MG TABLET PO SCH (22:21)
[2016-08-16] MEDS: IBUPROFEN 800 MG in NORMAL SALINE 250 ML IV SCH ×2 (02:27→10:58)
[2016-08-16] MEDS: LANSOPRAZOLE 30 MG TAB.RAP.DR PO SCH ×2 (05:53→22:34)
[2016-08-16 06:14] LABS: HEMATOCRIT 31.7 % (37.9-51.0); HEMOGLOBIN 9.8 g/dL (13.5-17.0); HGB HCT DIFFERENCE -2.3; MEAN CORPUSCULAR HEMOGLOBIN 27.7 pg (27.0-33.4); MEAN CORPUSCULAR HGB CONC 31.1 g/dL (32.0-36.0); MEAN CORPUSCULAR VOLUME 89 fl (80-97); RED BLOOD COUNT 3.55 10^6/uL (4.35-5.55); RED CELL DISTRIBUTION WIDTH 14.1 % (11.5-14.0); WHITE BLOOD COUNT 11.7 10^3/uL (4.0-10.5)
[2016-08-16] MEDS: INSULIN REG, HUMAN 100 UNIT/ML 3 ML VIAL (PYX) SUBCUT PRN (08:25)
[2016-08-16] MEDS: POTASSIUM CHLORIDE 10 MEQ TABLET.SA PO SCH (08:25)
[2016-08-16] MEDS: CITALOPRAM HYDROBROMIDE 20 MG TABLET PO SCH (08:25)
[2016-08-16] MEDS: SENNOSIDES/DOCUSATE 8.6-50 MG 1 EACH TABLET PO SCH ×2 (10:55→17:32)
[2016-08-16] MEDS: PREGABALIN 75 MG CAPSULE PO SCH ×2 (10:56→22:34)
[2016-08-16] MEDS: ASPIRIN 81 MG TABLET, CHEWABLE PO SCH (10:56)
[2016-08-16] MEDS: FUROSEMIDE 20 MG TABLET PO SCH ×3 (10:57→17:32)
[2016-08-16] MEDS: CARVEDILOL 12.5 MG TABLET PO SCH ×2 (10:57→22:34)
[2016-08-16] MEDS: PRENATAL VITAMIN W-O CA NO5/FE FUMARATE/FA CAPSULE PO SCH (10:57)
[2016-08-16] MEDS: OXYCODONE HCL SR 10 MG TABLET PO SCH (10:57)
--- NOTE | 2016-08-16 12:01 | PDOC PROGRESS REPORT ---
Subjective Progress Note for:: 08/16/16 Subjective:: Patient denies complaints except for some knee pain Physical Exam Vital Signs: Temp Pulse Resp BP Pulse Ox 97.5 F 71 13 120/68 96 08/16/16 09:00 08/16/16 09:00 08/16/16 09:00 08/16/16 09:00 08/16/16 07:59 Pulse Oximeter Continuous Start: 08/14/16 14: 37 Freq: Status: Complete Document 08/14/16 14:37 [facility] (Rec: 08/14/16 14:38 [facility]_RESP_) Pulse Oximetry Assessment Oxygen Saturation (92-100) 97 Oxygen Delivery Method Bi-pap Fraction of Inspired Oxygen (FIO2) 21 Equipment Usage Initial Set Up Continuous Pulse Oximeter 24 Hour Charge Charge Now Continuous SpO2 Machine # [id number] Pulse Oximeter Continuous Start: 08/14/16 15: 12 Freq: RTQ4 Status: Complete Document 08/15/16 21:50 [facility] (Rec: 08/15/16 22:35 [facility] ECART_RESP_) Pulse Oximetry Assessment Equipment Usage Equipment Discontinued Continuous SpO2 Machine # [id number] Intake & Output 08/15/16 08/16/16 08/17/16 06:59 06:59 06:59 Intake Total 6350 2079 Output Total 3030 Balance 3320 2079 General appearance: PRESENT: no acute distress Eye exam: PRESENT: conjunctiva pink. ABSENT: scleral icterus Mouth exam: PRESENT: moist, tongue midline Neck exam: ABSENT: JVD Respiratory exam: PRESENT: clear to auscultation roman. ABSENT: rales, rhonchi, wheezes Cardiovascular exam: PRESENT: RRR. ABSENT: diastolic murmur, rubs, systolic murmur GI/Abdominal exam: PRESENT: normal bowel sounds, soft. ABSENT: distended, guarding, mass, organolmegaly, rebound, tenderness Extremities exam: ABSENT: calf tenderness, clubbing, pedal edema Neurological exam: PRESENT: alert, awake, oriented to person, oriented to place , oriented to time, oriented to situation, CN II-XII grossly intact. ABSENT: motor sensory deficit Psychiatric exam: PRESENT: appropriate affect Skin exam: PRESENT: other - Dressing in place on the right knee Results Laboratory Results: 08/16/16 05:19 08/15/16 03:57 08/16/16 05:19 WBC 11.7 H RBC 3.55 L Hgb 9.8 L Hct 31.7 L MCV 89 MCH 27.7 MCHC 31.1 L RDW 14.1 H Plt Count 123 L 08/14/16 08/14/16 08/14/16 15:52 15:52 21:57 Creatine Kinase 96 99 CK-MB (CK-2) 0.49 Troponin I < 0.012 NT-Pro-B Natriuret Pep 08/14/16 08/15/16 08/15/16 21:57 03:57 03:57 Creatine Kinase 85 CK-MB (CK-2) 0.61 0.43 Troponin I < 0.012 < 0.012 NT-Pro-B Natriuret Pep 08/15/16 03:57 Creatine Kinase CK-MB (CK-2) Troponin I NT-Pro-B Natriuret Pep 282 Impressions: Chest X-Ray 08/14/16 00:00 IMPRESSION: Borderline cardiomegaly without CHF. Knee X-Ray 08/14/16 11:36 IMPRESSION: SATISFACTORY POSTOPERATIVE RIGHT KNEE. Assessment & Plan - Diagnosis (1) Acute and chronic respiratory failure Qualifiers: Respiratory failure complication: hypoxia and hypercapnia Qualified Code(s): J96.21 - Acute and chronic respiratory failure with hypoxia Is this a current diagnosis for this admission?: YesPlan: Likely secondary to obstructive sleep apnea. (2) Obstructive sleep apnea Is this a current diagnosis for this admission?: YesPlan: Continue with CPAP. (3) Bradycardia Is this a current diagnosis for this admission?: YesPlan: Likely secondary to hypoxia (4) Coronary artery disease Qualifiers: Coronary Disease-Associated Artery/Lesion type: [place] artery [place] vs. transplanted heart: [place] heart Associated angina: angina presence unspecified Qualified Code(s): I25.10 - Atherosclerotic heart disease of [place] coronary artery without angina pectoris Is this a current diagnosis for this admission?: YesPlan: Denies any chest pain (5) Diabetes mellitus type 2 in obese Is this a current diagnosis for this admission?: YesPlan: Continue with sliding scale insulin. (6) Essential hypertension Is this a current diagnosis for this admission?: Yes (7) PTSD (post-traumatic stress disorder) Is this a current diagnosis for this admission?: Yes (8) BPH (benign prostatic hyperplasia) Qualifiers: Lower urinary tract symptom presence: presence of symptoms unspecified Qualified Code(s): N40.0 - Benign prostatic hyperplasia without lower urinary tract symptoms Is this a current diagnosis for this admission?: Yes - Time Time Spent with patient: 25-34 minutes
[2016-08-16 18:12] LABS: ARTERIAL BLOOD BASE EXCESS -4.2 mmol/L; ARTERIAL BLOOD O2 SATURATION 51.8 % (94-98)
[2016-08-16] MEDS ORDERED: NALOXONE HCL INJ/PF 0.4 MG/1 ML SDV ONE (21:04)
[2016-08-16 21:19] LABS: ARTERIAL BLOOD BASE EXCESS -4.3 mmol/L; ARTERIAL BLOOD O2 SATURATION 98.3 % (94-98)
[2016-08-16] MEDS: RIVAROXABAN 10 MG TABLET PO SCH (22:34)
[2016-08-16] MEDS: ATORVASTATIN CALCIUM 20 MG TABLET PO SCH (22:34)
[2016-08-16] MEDS: NALOXONE HCL INJ/PF 0.4 MG/1 ML SDV IV PRN (23:48)
[2016-08-17 05:15] LABS: HEMATOCRIT 28.5 % (37.9-51.0); HGB HCT DIFFERENCE -1.5; MEAN CORPUSCULAR HEMOGLOBIN 28.7 pg (27.0-33.4); MEAN CORPUSCULAR HGB CONC 31.7 g/dL (32.0-36.0); MEAN CORPUSCULAR VOLUME 91 fl (80-97); RED BLOOD COUNT 3.15 10^6/uL (4.35-5.55); RED CELL DISTRIBUTION WIDTH 13.9 % (11.5-14.0); WHITE BLOOD COUNT 10.5 10^3/uL (4.0-10.5)
[2016-08-17 05:39] LABS: ANION GAP 11 (5-19); BLOOD UREA NITROGEN 48 mg/dL (7-20); CALCIUM 7.8 mg/dL (8.4-10.2); CARBON DIOXIDE 21 mmol/L (22-30); CHLORIDE 100 mmol/L (98-107); CREATININE RESULT 4.75 mg/dL (0.52-1.25); GLUCOSE 145 mg/dL (75-110); POTASSIUM 5.1 mmol/L (3.6-5.0); SODIUM 132.4 mmol/L (137-145)
--- NOTE | 2016-08-17 06:59 | PDOC PROGRESS REPORT ---
Subjective Progress Note for:: 08/17/16 Subjective:: Patient sleeping and difficult to arouse. is in the room and quite upset with the patient's condition and the fact that she asked to speak to a physician yesterday but the physician never responded. Physical Exam Vital Signs: Temp Pulse Resp BP Pulse Ox 37.1 C 78 10 L 122/55 L 99 08/17/16 00:36 08/17/16 02:00 08/17/16 04:20 08/17/16 00:36 08/17/16 00:36 Pulse Oximeter Continuous Start: 08/14/16 14: 37 Freq: Status: Complete Document 08/14/16 14:37 [facility] (Rec: 08/14/16 14:38 [facility] [email or web address]) Pulse Oximetry Assessment Oxygen Saturation (92-100) 97 Oxygen Delivery Method Bi-pap Fraction of Inspired Oxygen (FIO2) 21 Equipment Usage Initial Set Up Continuous Pulse Oximeter 24 Hour Charge Charge Now Continuous SpO2 Machine # [id number] Pulse Oximeter Continuous Start: 08/14/16 15: 12 Freq: RTQ4 Status: Complete Document 08/15/16 21:50 [facility] (Rec: 08/15/16 22:35 [facility] ECART_RESP_) Pulse Oximetry Assessment Equipment Usage Equipment Discontinued Continuous SpO2 Machine # [id number] Intake & Output 08/15/16 08/16/16 08/17/16 06:59 06:59 06:59 Intake Total 6350 2079 690 Output Total 3030 Balance 3320 2079 690 General appearance: PRESENT: no acute distress Head exam: PRESENT: normocephalic Respiratory exam: PRESENT: unlabored Pulses: PRESENT: +1 pedal pulses bilateral Vascular exam: PRESENT: normal capillary refill Extremities exam: PRESENT: other - Lower extremity dressing clean dry and intact Results Laboratory Results: 08/17/16 04:43 08/17/16 04:43 08/16/16 08/16/16 08/17/16 17:15 21:10 04:43 WBC 10.5 RBC 3.15 L Hgb 9.0 L Hct 28.5 L MCV 91 MCH 28.7 MCHC 31.7 L RDW 13.9 Plt Count 137 L Carbonic Acid 1.82 H 1.51 H HCO3/H2CO3 Ratio 13:1 15:1 ABG pH 7.22 L 7.27 L ABG pCO2 60.4 H 50.3 H ABG pO2 33.4 L* 136.3 H ABG HCO3 24.1 22.7 ABG O2 Saturation 51.8 L 98.3 H ABG Base Excess -4.2 -4.3 FiO2 ROOM AIR 35% Sodium Potassium Chloride Carbon Dioxide Anion Gap BUN Creatinine Est GFR ( Amer) Est GFR (Non-Af Amer) Glucose Calcium 08/17/16 04:43 WBC RBC Hgb Hct MCV MCH MCHC RDW Plt Count Carbonic Acid HCO3/H2CO3 Ratio ABG pH ABG pCO2 ABG pO2 ABG HCO3 ABG O2 Saturation ABG Base Excess FiO2 Sodium 132.4 L Potassium 5.1 H Chloride 100 Carbon Dioxide 21 L Anion Gap 11 BUN 48 H Creatinine 4.75 H Est GFR ( Amer) 15 L Est GFR (Non-Af Amer) 12 L Glucose 145 H Calcium 7.8 L 08/14/16 08/14/16 08/14/16 15:52 15:52 21:57 Creatine Kinase 96 99 CK-MB (CK-2) 0.49 Troponin I < 0.012 NT-Pro-B Natriuret Pep 08/14/16 08/15/16 08/15/16 21:57 03:57 03:57 Creatine Kinase 85 CK-MB (CK-2) 0.61 0.43 Troponin I < 0.012 < 0.012 NT-Pro-B Natriuret Pep 08/15/16 03:57 Creatine Kinase CK-MB (CK-2) Troponin I NT-Pro-B Natriuret Pep 282 Impressions: Chest X-Ray 08/14/16 00:00 IMPRESSION: Borderline cardiomegaly without CHF. Knee X-Ray 08/14/16 11:36 IMPRESSION: SATISFACTORY POSTOPERATIVE RIGHT KNEE. Status: Imported from PACS Assessment & Plan - Diagnosis (1) Arthritis of knee, right Is this a current diagnosis for this admission?: YesPlan: Patient postop day 2 right knee arthroplasty. Hematocrit remains above 28%. No significant progress with physical therapy. (2) Obstructive sleep apnea Is this a current diagnosis for this admission?: YesPlan: Patient with several episodes of hypoxia last night treated with Narcan with a temporary improvement. I think this probably results from a combination of his chronic sleep apnea and the fact that he is probably overmedicated with respect to narcotics. We will stop his OxyContin and morphine today and leave him just on oxycodone for pain control. - Time Time Spent with patient: 15-24 minutes Anticipated discharge: SNF Within: Other - Plan Summary Plan Summary: 66-year-old black male with multiple comorbidities status post right knee arthroplasty. is quite upset is talking about transferring patient to a different hospital. I requested Domingo involvement to placate the woman.
[2016-08-17] MEDS: NORMAL SALINE 1000 ML 1,000 ML IV PRN ×2 (08:26→17:39)
[2016-08-17] MEDS: NALOXONE HCL INJ/PF 0.4 MG/1 ML SDV IV PRN ×3 (08:34→14:58)
[2016-08-17] MEDS: POTASSIUM CHLORIDE 10 MEQ TABLET.SA PO SCH (08:36)
--- NOTE | 2016-08-17 09:04 | XCELERA REPORT ---
[address] [address] Transthoracic Echocardiogram Report Name: RAJAT DANIEL Age: 66 yrs Gender: Male : 1950 Patient Status: Inpatient Patient Location: [id number]\S\426\[id number]\A Study Date: 08/16/2016 09:41 AM Height: 73 in Weight: 286 lb BSA: 2.5 m2 Procedure: A complete two-dimensional transthoracic echocardiogram was performed (2D, M-mode, spectral and color flow Doppler). The study was technically difficult with many images being suboptimal in quality. Reason For Study: CAD, respiratory failure Ordering Physician: AMADEO ALEXIS Performed By: Ayanna Langston Interpretation Summary The left ventricular ejection fraction is normal. There is mild concentric left ventricular hypertrophy. Doppler measurements suggest pseudonormalized left ventricular relaxation, which is associated with grade II/IV or mild to moderate diastolic dysfunction The left ventricle is grossly normal size. Wall motion cannot be accurately commented on, but no definite regional wall motion abnormalities noted. The right ventricular systolic function is normal. The right ventricle is mildly dilated. The right atrium is borderline dilated. The left atrium is mildly dilated. There is a trace to mild amount of mitral regurgitation There is no mitral valve stenosis. There is no aortic valve stenosis No aortic regurgitation is present. There is a mild amount of tricuspid regurgitation There is moderate pulmonary hypertension by echo Right ventricular systolic pressure is estimated to be elevated at 40- 50mmHg. The inferior vena cava appeared normal and decreased > 50% with respiration (RAP 5-10 mmHg) There is no pericardial effusion. MMode/2D Measurements \T\ Calculations RVDd: 4.1 cm LVIDd: 5.6 cm FS: 37.2 % Ao root diam: 3.2 cm IVSd: 1.2 cm LVIDs: 3.5 cm EDV(Teich): 153.5 ml LVPWd: 1.2 cm ESV(Teich): 51.4 ml Ao root area: 7.9 cm2 EF(Teich): 66.5 % LA dimension: 3.8 cm Doppler Measurements \T\ Calculations MV E max tiffany: MV P1/2t max tiffany: Ao V2 max: LV V1 max P.2 cm/sec 65.6 cm/sec 184.2 cm/sec 7.2 mmHg MV A max tiffany: MV P1/2t: 85.6 msec Ao max PG: LV V1 max: 78.3 cm/sec 13.6 mmHg 133.8 cm/sec MV E/A: 0.83 MVA(P1/2t): 2.6 cm2 MV dec slope: 224.4 cm/sec2 MV dec time: 0.29 sec PA V2 max: TR max tiffany: 92.3 cm/sec 318.0 cm/sec PA max PG: TR max P.5 mmHg 3.4 mmHg Left Ventricle The left ventricle is grossly normal size. There is mild concentric left ventricular hypertrophy. The left ventricular ejection fraction is normal. Doppler measurements suggest pseudonormalized left ventricular relaxation, which is associated with grade II/IV or mild to moderate diastolic dysfunction. Wall motion cannot be accurately commented on, but no definite regional wall motion abnormalities noted. Right Ventricle The right ventricle is mildly dilated. The right ventricle appears to be hypertrophied. The right ventricular systolic function is normal. Atria The right atrium is borderline dilated. The left atrium is mildly dilated. Interarterial septum not well visualized and not well dopplered. Cannot comment on ASD/PFO presence. Mitral Valve The mitral valve leaflets are sclerotic, but show no functional abnormalities. There is no mitral valve stenosis. There is a trace to mild amount of mitral regurgitation. Aortic Valve The aortic valve is grossly normal. There is no aortic valve stenosis. No aortic regurgitation is present. Tricuspid Valve The tricuspid valve is not well visualized, but is grossly normal. There is no tricuspid stenosis. There is a mild amount of tricuspid regurgitation. There is moderate pulmonary hypertension by echo. Right ventricular systolic pressure is estimated to be elevated at 40-50mmHg. Pulmonic Valve The pulmonic valve is not well visualized. Great Vessels The aortic root is not well visualized but is probably normal size. The inferior vena cava appeared normal and decreased > 50% with respiration (RAP 5-10 mmHg). Effusions There is no pericardial effusion. : AMADEO ALEXIS > Amadeo Alexis
--- NOTE | 2016-08-17 10:20 | PDOC PROGRESS REPORT ---
Subjective Progress Note for:: 08/17/16 Subjective:: Patient had a episode yesterday where he became less responsive and responded to Narcan. The patient has required BiPAP. Physical Exam Vital Signs: Temp Pulse Resp BP Pulse Ox 98.8 F 76 14 122/55 L 99 08/17/16 00:36 08/17/16 07:00 08/17/16 08:20 08/17/16 00:36 08/17/16 00:36 Pulse Oximeter Continuous Start: 08/14/16 14: 37 Freq: Status: Complete Document 08/14/16 14:37 [facility] (Rec: 08/14/16 14:38 [facility] [email or web address]) Pulse Oximetry Assessment Oxygen Saturation (92-100) 97 Oxygen Delivery Method Bi-pap Fraction of Inspired Oxygen (FIO2) 21 Equipment Usage Initial Set Up Continuous Pulse Oximeter 24 Hour Charge Charge Now Continuous SpO2 Machine # [id number] Pulse Oximeter Continuous Start: 08/14/16 15: 12 Freq: RTQ4 Status: Complete Document 08/15/16 21:50 [facility] (Rec: 08/15/16 22:35 [facility] ECART_RESP_) Pulse Oximetry Assessment Equipment Usage Equipment Discontinued Continuous SpO2 Machine # [id number] Intake & Output 08/16/16 08/17/16 08/18/16 06:59 06:59 06:59 Intake Total 7750 504 Balance 207 690 General appearance: PRESENT: no acute distress Eye exam: PRESENT: conjunctiva pink. ABSENT: scleral icterus Mouth exam: PRESENT: moist, tongue midline Neck exam: ABSENT: JVD Respiratory exam: PRESENT: clear to auscultation roman. ABSENT: rales, rhonchi, wheezes Cardiovascular exam: PRESENT: RRR. ABSENT: diastolic murmur, rubs, systolic murmur GI/Abdominal exam: PRESENT: normal bowel sounds, soft. ABSENT: distended, guarding, mass, organolmegaly, rebound, tenderness Extremities exam: PRESENT: other - Dressing in place on the right knee. ABSENT : calf tenderness, clubbing, pedal edema Neurological exam: PRESENT: awake, oriented to person, oriented to place, oriented to time, oriented to situation Psychiatric exam: PRESENT: flat affect Skin exam: PRESENT: dry, intact, warm. ABSENT: cyanosis, rash Results Laboratory Results: 08/17/16 04:43 08/17/16 04:43 08/16/16 08/16/16 08/17/16 17:15 21:10 04:43 WBC 10.5 RBC 3.15 L Hgb 9.0 L Hct 28.5 L MCV 91 MCH 28.7 MCHC 31.7 L RDW 13.9 Plt Count 137 L Carbonic Acid 1.82 H 1.51 H HCO3/H2CO3 Ratio 13:1 15:1 ABG pH 7.22 L 7.27 L ABG pCO2 60.4 H 50.3 H ABG pO2 33.4 L* 136.3 H ABG HCO3 24.1 22.7 ABG O2 Saturation 51.8 L 98.3 H ABG Base Excess -4.2 -4.3 FiO2 ROOM AIR 35% Sodium Potassium Chloride Carbon Dioxide Anion Gap BUN Creatinine Est GFR ( Amer) Est GFR (Non-Af Amer) Glucose Calcium 08/17/16 04:43 WBC RBC Hgb Hct MCV MCH MCHC RDW Plt Count Carbonic Acid HCO3/H2CO3 Ratio ABG pH ABG pCO2 ABG pO2 ABG HCO3 ABG O2 Saturation ABG Base Excess FiO2 Sodium 132.4 L Potassium 5.1 H Chloride 100 Carbon Dioxide 21 L Anion Gap 11 BUN 48 H Creatinine 4.75 H Est GFR ( Amer) 15 L Est GFR (Non-Af Amer) 12 L Glucose 145 H Calcium 7.8 L 08/14/16 08/14/16 08/14/16 15:52 15:52 21:57 Creatine Kinase 96 99 CK-MB (CK-2) 0.49 Troponin I < 0.012 NT-Pro-B Natriuret Pep 08/14/16 08/15/16 08/15/16 21:57 03:57 03:57 Creatine Kinase 85 CK-MB (CK-2) 0.61 0.43 Troponin I < 0.012 < 0.012 NT-Pro-B Natriuret Pep 08/15/16 03:57 Creatine Kinase CK-MB (CK-2) Troponin I NT-Pro-B Natriuret Pep 282 Impressions: Chest X-Ray 08/14/16 00:00 IMPRESSION: Borderline cardiomegaly without CHF. Knee X-Ray 08/14/16 11:36 IMPRESSION: SATISFACTORY POSTOPERATIVE RIGHT KNEE. Assessment & Plan - Diagnosis (1) Acute and chronic respiratory failure Qualifiers: Respiratory failure complication: hypoxia and hypercapnia Qualified Code(s): J96.21 - Acute and chronic respiratory failure with hypoxia Is this a current diagnosis for this admission?: YesPlan: Likely secondary to obstructive sleep apnea made worse by the narcotics. Patient did receive Narcan yesterday. Pulmonary medicine has been consulted for their input (2) Obstructive sleep apnea Is this a current diagnosis for this admission?: YesPlan: Continue with BiPAP (3) Bradycardia Is this a current diagnosis for this admission?: YesPlan: Likely secondary to hypoxia (4) Coronary artery disease Qualifiers: Coronary Disease-Associated Artery/Lesion type: [place] artery [place] vs. transplanted heart: [place] heart Associated angina: angina presence unspecified Qualified Code(s): I25.10 - Atherosclerotic heart disease of [place] coronary artery without angina pectoris Is this a current diagnosis for this admission?: YesPlan: Denies any chest pain (5) Diabetes mellitus type 2 in obese Is this a current diagnosis for this admission?: YesPlan: Continue with sliding scale insulin. (6) Essential hypertension Is this a current diagnosis for this admission?: Yes (7) PTSD (post-traumatic stress disorder) Is this a current diagnosis for this admission?: Yes (8) BPH (benign prostatic hyperplasia) Qualifiers: Lower urinary tract symptom presence: presence of symptoms unspecified Qualified Code(s): N40.0 - Benign prostatic hyperplasia without lower urinary tract symptoms Is this a current diagnosis for this admission?: Yes (9) Acute renal failure (ARF) Is this a current diagnosis for this admission?: YesPlan: Creatinine has increased. This may be all prerenal due to decreased p.o. intake over the last 2 days. Will start IV fluids. Will obtain renal ultrasound and consult nephrology - Time Time Spent with patient: 25-34 minutes - Inpatient Certification Medical Necessity: Need For IV Fluids
[2016-08-17] MEDS: PREGABALIN 75 MG CAPSULE PO SCH ×2 (11:40→22:17)
[2016-08-17] MEDS: ASPIRIN 81 MG TABLET, CHEWABLE PO SCH (11:40)
[2016-08-17] MEDS: PRENATAL VITAMIN W-O CA NO5/FE FUMARATE/FA CAPSULE PO SCH (11:40)
[2016-08-17] MEDS: SENNOSIDES/DOCUSATE 8.6-50 MG 1 EACH TABLET PO SCH ×2 (11:40→17:42)
[2016-08-17] MEDS: CITALOPRAM HYDROBROMIDE 20 MG TABLET PO SCH (11:41)
[2016-08-17] MEDS: CARVEDILOL 12.5 MG TABLET PO SCH ×2 (11:42→22:17)
[2016-08-17] MEDS: FUROSEMIDE 20 MG TABLET PO SCH (12:31)
--- NOTE | 2016-08-17 13:52 | PDOC CONSULTATION ---
Consultation Consult Date: 08/17/16 Attending physician:: RAMYA ROBERTS Consult reason:: resp failure History of Present Illness Admission Date/PCP: 08/14/16 08:00 BHASKAR TURPIN MD History of Present Illness: RAJAT DANIEL is a 66 year old male, with history of obstructive sleep apnea , PTSD, hypertension, type 2 diabetes mellitus, underwent right knee arthroplasty Post Operative the patient reportedly was apneic and hypoxic with O2 sat in the high 80s. No hypotension however was noted. An EKG was performed and the patient was placed on Bi-PAP. EKG revealed accelerated junctional rhythm. Cardiology was consulted for the abnormal EKG. Medicine was consulted for medical management.Currewntly the patient he is on BI-PAP very lethargic.He has >100 pyh and chronic alcohol per spouse He denies any specific complaints other than the pain from recent surgery on the right knee. He denies any chest congestion or coughing. He denies any shortness of breath at all. Per spouse denies any paroxysmal nocturnal dyspnea nor orthopnea. Profound snoring Past Medical History Cardiac Medical History: Reports: Coronary Artery Disease, Myocardial Infarction , Hypertension Denies: Atrial Fibrillation, Congestive Heart Failure, Hyperlipidema - takes Atorvastatin r/t cardiac stent, Peripheral Vascular Disease, Pulmonary Embolism , Heart Murmur Pulmonary Medical History: Reports: Sleep Apnea - CPAP Denies: Asthma, Bronchitis, Chronic Obstructive Pulmonary Disease (COPD), Pneumonia, Respiratory Failure, Tuberculosis Endocrine Medical History: Reports: Diabetes Mellitus Type 2 Denies: Hyperthyroidism, Hypothyroidism Renal/ Medical History: Denies: End Stage Renal Disease Malignancy Medical History: Denies: Lung Cancer GI Medical History: Denies: Crohn's Disease, Gastroesophageal Reflux Disease, Hiatal Hernia Musculoskeltal Medical History: Reports: Arthritis Denies: Fibromyalgia Psychiatric Medical History: Reports: Depression - Anxiety, Post Traumatic Stress Disorder Denies: Bipolar Disorder Past Surgical History Past Surgical History: Reports: Herniorrhaphy - Bilateral Inguinal/Femoral, Orthopedic Surgery Denies: Appendectomy, Cholecystectomy, Colostomy, Coronary Artery Bypass Graft, Gastric Bypass Surgery, Pacemaker, Tonsillectomy Social History Information Source: Legal Guardian, [facility] Records Smoking Status: Former Smoker Cigarettes Packs Per Day: 2 Number of Years Smokin Passive smoke exposure as: Both Frequency of Alcohol Use: Occasional Hx Recreational Drug Use: No Drugs: None Hx Prescription Drug Abuse: No Do you have pets?: No - Advance Directive Resuscitation Status: Full Code Family History Family History: DM, Hypertension, Other - Heart failure Parental Family History Reviewed: Yes Children Family History Reviewed: Yes Sibling(s) Family History Reviewed.: Yes Medication/Allergy Home Medications: Aspirin [Aspirin 81 mg Chewable Tablet] 81 mg PO DAILY 07/11/12 Citalopram Hydrobromide [Celexa 40 mg Tablet] 40 mg PO QAM 07/11/12 Atorvastatin Calcium [Lipitor 20 mg Tablet] 20 mg PO QHS 06/15/16 Carvedilol 25 mg PO BID 06/15/16 Chromium Picolinate [Chromium Picolinate 200 mcg Capsule] 1 cap PO QAM 06/15/16 Furosemide [Lasix] 20 mg PO TID 06/15/16 Insulin Glargine,Hum.rec.anlog [Lantus] 80 units SQ QHS 06/15/16 Potassium Chloride 20 meq PO QAM 06/15/16 Tramadol HCl 50 mg PO DAILY PRN 06/15/16 Vitamin B Complex 1 each PO DAILY 06/15/16 l-Carnitine Fumarate [L-Carnitine] 200 mg PO QAM 06/15/16 Allergies/Adverse Reactions: Penicillins Allergy (Verified 06/15/16 07:53) Hives, SOB Review of Systems ROS unobtainable: Due to mental status Physical Exam Vital Signs: Temp Pulse Resp BP Pulse Ox 98.4 F 73 14 105/60 100 08/17/16 07:54 08/17/16 07:54 08/17/16 08:20 08/17/16 07:54 08/17/16 07:54 Pulse Oximeter Continuous Start: 08/14/16 14: 37 Freq: Status: Complete Document 08/14/16 14:37 [facility] (Rec: 08/14/16 14:38 [facility] [email or web address]_) Pulse Oximetry Assessment Oxygen Saturation (92-100) 97 Oxygen Delivery Method Bi-pap Fraction of Inspired Oxygen (FIO2) 21 Equipment Usage Initial Set Up Continuous Pulse Oximeter 24 Hour Charge Charge Now Continuous SpO2 Machine # [id number] Pulse Oximeter Continuous Start: 08/14/16 15: 12 Freq: RTQ4 Status: Complete Document 08/15/16 21:50 [facility] (Rec: 08/15/16 22:35 [email or web address] [email or web address]) Pulse Oximetry Assessment Equipment Usage Equipment Discontinued Continuous SpO2 Machine # [id number] Intake & Output 08/16/16 08/17/16 08/18/16 06:59 06:59 06:59 Intake Total 2 737 Balance 5 690 General appearance: PRESENT: disheveled, morbidly obese, well-developed Head exam: PRESENT: atraumatic, normocephalic Eye exam: PRESENT: conjunctiva pale Mouth exam: PRESENT: dry mucosa, neck supple Neck exam: ABSENT: carotid bruit, JVD, lymphadenopathy, thyromegaly Respiratory exam: PRESENT: decreased breath sounds, prolonged expiratory phas, rales, rhonchi, wheezes Cardiovascular exam: PRESENT: RRR, +S1, +S2 Pulses: PRESENT: normal radial pulses GI/Abdominal exam: PRESENT: normal bowel sounds, soft. ABSENT: distended, guarding, mass, organolmegaly, rebound, tenderness Rectal exam: PRESENT: deferred Extremities exam: PRESENT: +2 edema Skin exam: PRESENT: dry, warm Results Laboratory Results: 08/17/16 04:43 08/17/16 04:43 08/16/16 08/16/16 08/17/16 17:15 21:10 04:43 WBC 10.5 RBC 3.15 L Hgb 9.0 L Hct 28.5 L MCV 91 MCH 28.7 MCHC 31.7 L RDW 13.9 Plt Count 137 L Carbonic Acid 1.82 H 1.51 H HCO3/H2CO3 Ratio 13:1 15:1 ABG pH 7.22 L 7.27 L ABG pCO2 60.4 H 50.3 H ABG pO2 33.4 L* 136.3 H ABG HCO3 24.1 22.7 ABG O2 Saturation 51.8 L 98.3 H ABG Base Excess -4.2 -4.3 FiO2 ROOM AIR 35% Sodium Potassium Chloride Carbon Dioxide Anion Gap BUN Creatinine Est GFR ( Amer) Est GFR (Non-Af Amer) Glucose Calcium 08/17/16 04:43 WBC RBC Hgb Hct MCV MCH MCHC RDW Plt Count Carbonic Acid HCO3/H2CO3 Ratio ABG pH ABG pCO2 ABG pO2 ABG HCO3 ABG O2 Saturation ABG Base Excess FiO2 Sodium 132.4 L Potassium 5.1 H Chloride 100 Carbon Dioxide 21 L Anion Gap 11 BUN 48 H Creatinine 4.75 H Est GFR ( Amer) 15 L Est GFR (Non-Af Amer) 12 L Glucose 145 H Calcium 7.8 L 08/14/16 08/14/16 08/14/16 15:52 15:52 21:57 Creatine Kinase 96 99 CK-MB (CK-2) 0.49 Troponin I < 0.012 NT-Pro-B Natriuret Pep 08/14/16 08/15/16 08/15/16 21:57 03:57 03:57 Creatine Kinase 85 CK-MB (CK-2) 0.61 0.43 Troponin I < 0.012 < 0.012 NT-Pro-B Natriuret Pep 08/15/16 03:57 Creatine Kinase CK-MB (CK-2) Troponin I NT-Pro-B Natriuret Pep 282 Impressions: Chest X-Ray 08/14/16 00:00 IMPRESSION: Borderline cardiomegaly without CHF. Knee X-Ray 08/14/16 11:36 IMPRESSION: SATISFACTORY POSTOPERATIVE RIGHT KNEE. Assessment & Plan - Diagnosis (1) Abnormal EKG Is this a current diagnosis for this admission?: YesPlan: as per cardiology (2) Acute and chronic respiratory failure Qualifiers: Respiratory failure complication: hypoxia and hypercapnia Qualified Code(s): J96.21 - Acute and chronic respiratory failure with hypoxia Is this a current diagnosis for this admission?: YesPlan: bipap-AVAPS (3) Acute renal failure (ARF) Is this a current diagnosis for this admission?: YesPlan: creatnine 1.7---> 4.0 as per nephrology (4) Obesity hypoventilation syndrome Is this a current diagnosis for this admission?: YesPlan: elevated PCO2 (5) Obstructive sleep apnea Is this a current diagnosis for this admission?: YesPlan: poor compliance with cpap
[2016-08-17] MEDS: IPRATROPIUM/ALBUTEROL 0.5-2.5 MG/3 ML AMPUL NEB SCH ×2 (13:53→19:45)
[2016-08-17] MEDS: ONDANSETRON HCL INJ/PF 4 MG/2 ML SDV IV PRN (14:58)
--- NOTE | 2016-08-17 15:01 | RADIOLOGY REPORT (SQ) ---
EXAM DESCRIPTION: U/S RETROPERITON (RENAL/AORTA) COMPLETED DATE/TIME: 08/17/2016 2:40 pm REASON FOR STUDY: acute renal failure M17.11 UNILATERAL PRIMARY OSTEOARTHRITIS, RIGHT KNEE COMPARISON: None. TECHNIQUE: Dynamic and static grayscale images acquired of the kidneys and bladder and recorded on P ACS. Additional selected color Doppler and spectral images recorded. LIMITATIONS: Large patient, upper abdominal bowel gas FINDINGS: RIGHT KIDNEY: 10.7 cm in length. Normal echogenicity. No solid or suspicious masses. No hy dronephrosis. No calcifications. LEFT KIDNEY: 9.8 cm in length. Normal echogenicity. No solid or suspicious masses. No hydronephrosis . No calcifications. BLADDER: No masses. OTHER FINDINGS: No other significant finding. IMPRESSION: No hydronephrosis. TECHNICAL DOCUMENTATION: JOB ID: [id number] [employer]- All Rights Reserved
[2016-08-17 18:01] LABS: HEMATOCRIT 28.1 % (37.9-51.0); HEMOGLOBIN 8.9 g/dL (13.5-17.0); HGB HCT DIFFERENCE -1.4; MEAN CORPUSCULAR HEMOGLOBIN 28.3 pg (27.0-33.4); MEAN CORPUSCULAR HGB CONC 31.7 g/dL (32.0-36.0); MEAN CORPUSCULAR VOLUME 90 fl (80-97); RED BLOOD COUNT 3.14 10^6/uL (4.35-5.55); RED CELL DISTRIBUTION WIDTH 13.4 % (11.5-14.0); WHITE BLOOD COUNT 10.2 10^3/uL (4.0-10.5)
--- NOTE | 2016-08-17 19:31 | PDOC CONSULTATION ---
Consultation Consult Date: 08/17/16 Attending physician:: RAMYA SEYMOUR Consult reason:: I was asked by Dr. Seymour to see this patient because of acute renal failure. History of Present Illness Admission Date/PCP: 08/14/16 08:00 BHASKAR TURPIN MD History of Present Illness: RAJAT DANIEL is a 66 year old male, with history of obstructive sleep apnea , PTSD, hypertension, type 2 diabetes mellitus, underwent right knee arthroplasty Post Operative the patient reportedly was apneic and hypoxic with O2 sat in the high 80s. No hypotension however was noted. An EKG was performed and the patient was placed on Bi-PAP. EKG revealed accelerated junctional rhythm. Cardiology was consulted for the abnormal EKG. Medicine was consulted for medical management. Currently the patient he is on BI-PAP very lethargic. He does wake up very ,very briefly to answer a few questions with phrases and then goes right back to sleep. He denies any specific complaints. Patient's is at bedside and has been actually giving me more information. She states that the patient did well the first 2 days postoperatively on Mondays and Sunday. However subsequently the patient deteriorated and became hypoxic requiring BiPAP as above. Pulmonary is also consulted. For the last couple of days the patient has been very lethargic and has not really had any good oral solids nor liquid intake. Patient's is not aware of any underlying kidney problems prior to this. On August 15 the patient had a BUN of 22 and creatinine of 1.7 with estimated GFR 49. Today he has a BUN of 48 and creatinine of 4.75 with estimated GFR 15. He does not have a Card catheter so we do not have a way of estimating his urine output. Patient had a renal ultrasound which showed no hydronephrosis with appropriate kidney sizes. He also had an echocardiogram with normal ejection fraction. Review of medications indicated that the patient receive a dose of ibuprofen and vancomycin perioperatively. He was also being given Lasix 20 mg 3 times a day which was stopped approximately the last 48 hours. Patient is also being given pain medications postoperatively including OxyContin, oxycodone and morphine. Due to change in mental status for the last 48 hours this are not being given currently. Instead he is being given Narcan which improves his mentation for a few minutes and then goes right back to his lethargic state. Patient is really unable to communicate much. Past Medical History Cardiac Medical History: Reports: Coronary Artery Disease, Hypertension-primary , Myocardial Infarction Pulmonary Medical History: Reports: Sleep Apnea - CPAP Endocrine Medical History: Reports: Diabetes Mellitus Type 2 Musculoskeltal Medical History: Reports: Arthritis Psychiatric Medical History: Reports: Depression - Anxiety, Post Traumatic Stress Disorder Past Surgical History Past Surgical History: Reports: Herniorrhaphy - Bilateral Inguinal/Femoral, Orthopedic Surgery Social History Information Source: [facility] Records Lives with: Spouse/Significant other Smoking Status: Former Smoker Cigarettes Packs Per Day: 2 Number of Years Smokin Frequency of Alcohol Use: Occasional Hx Recreational Drug Use: No Drugs: None Hx Prescription Drug Abuse: No - Advance Directive Resuscitation Status: Full Code Family History Family History: DM, Hypertension, Other - Heart failure Parental Family History Reviewed: Yes Children Family History Reviewed: Yes Sibling(s) Family History Reviewed.: Yes Medication/Allergy Home Medications: Aspirin [Aspirin 81 mg Chewable Tablet] 81 mg PO DAILY 07/11/12 Citalopram Hydrobromide [Celexa 40 mg Tablet] 40 mg PO QAM 07/11/12 Atorvastatin Calcium [Lipitor 20 mg Tablet] 20 mg PO QHS 06/15/16 Carvedilol 25 mg PO BID 06/15/16 Chromium Picolinate [Chromium Picolinate 200 mcg Capsule] 1 cap PO QAM 06/15/16 Furosemide [Lasix] 20 mg PO TID 06/15/16 Insulin Glargine,Hum.rec.anlog [Lantus] 80 units SQ QHS 06/15/16 Potassium Chloride 20 meq PO QAM 06/15/16 Tramadol HCl 50 mg PO DAILY PRN 06/15/16 Vitamin B Complex 1 each PO DAILY 06/15/16 l-Carnitine Fumarate [L-Carnitine] 200 mg PO QAM 06/15/16 Allergies/Adverse Reactions: Penicillins Allergy (Verified 06/15/16 07:53) Hives, SOB Review of Systems ROS unobtainable: Due to mental status Physical Exam Vital Signs: Temp Pulse Resp BP Pulse Ox 99.6 F 81 20 122/84 100 08/17/16 17:00 08/17/16 17:00 08/17/16 17:00 08/17/16 17:00 08/17/16 16:12 Pulse Oximeter Continuous Start: 08/14/16 14: 37 Freq: Status: Complete Document 08/14/16 14:37 [facility] (Rec: 08/14/16 14:38 [facility] [email or web address]) Pulse Oximetry Assessment Oxygen Saturation (92-100) 97 Oxygen Delivery Method Bi-pap Fraction of Inspired Oxygen (FIO2) 21 Equipment Usage Initial Set Up Continuous Pulse Oximeter 24 Hour Charge Charge Now Continuous SpO2 Machine # [id number] Pulse Oximeter Continuous Start: 08/14/16 15: 12 Freq: RTQ4 Status: Complete Document 08/15/16 21:50 [facility] (Rec: 08/15/16 22:35 [facility] [email or web address]) Pulse Oximetry Assessment Equipment Usage Equipment Discontinued Continuous SpO2 Machine # [id number] Intake & Output 08/16/16 08/17/16 08/18/16 06:59 06:59 06:59 Intake Total 5578 690 Balance 7179 690 Exam: General appearance: Cooperative, well-developed, well-nourished; patient has respiratory failure and is requiring BiPAP. Head exam: PRESENT: atraumatic, normocephalic Eye exam: PRESENT: Conjunctiva pale, EOMI, PERRLA. ABSENT: conjunctival injection, scleral icterus Mouth exam: PRESENT: moist, neck supple, tongue midline Neck exam: PRESENT: full ROM. ABSENT: carotid bruit, JVD, lymphadenopathy, thyromegaly Respiratory exam: PRESENT: Diminished to auscultation bilaterally. ABSENT: rales, rhonchi, stridor, wheezes Cardiovascular exam: PRESENT: RRR, +S1, +S2. ABSENT: systolic murmur Pulses: PRESENT: normal radial pulses, normal dorsalis pedis pulses GI/Abdominal exam: PRESENT: normal bowel sounds, soft. ABSENT: guarding, mass, tenderness Rectal exam: deferred Extremities exam: PRESENT: full ROM. Mild grade 1 bilateral lower extremity pitting edema ABSENT: calf tenderness Musculoskeletal: PRESENT: full ROM. ABSENT: deformity Neurological exam: PRESENT: Lethargic but arousable, Oriented to person, Oriented to place, not oriented to time, reflexes normal, CN II-XII grossly intact. ABSENT: motor sensory deficit Psychiatric exam: PRESENT: Difficult to assess because of mentation currently Skin exam: PRESENT: intact, dry, warm. ABSENT: rash Results Laboratory Results: 08/17/16 17:52 08/17/16 04:43 08/16/16 08/17/16 08/17/16 21:10 04:43 04:43 WBC 10.5 RBC 3.15 L Hgb 9.0 L Hct 28.5 L MCV 91 MCH 28.7 MCHC 31.7 L RDW 13.9 Plt Count 137 L Carbonic Acid 1.51 H HCO3/H2CO3 Ratio 15:1 ABG pH 7.27 L ABG pCO2 50.3 H ABG pO2 136.3 H ABG HCO3 22.7 ABG O2 Saturation 98.3 H ABG Base Excess -4.3 FiO2 35% Sodium 132.4 L Potassium 5.1 H Chloride 100 Carbon Dioxide 21 L Anion Gap 11 BUN 48 H Creatinine 4.75 H Est GFR ( Amer) 15 L Est GFR (Non-Af Amer) 12 L Glucose 145 H Calcium 7.8 L 08/17/16 17:52 WBC 10.2 RBC 3.14 L Hgb 8.9 L Hct 28.1 L MCV 90 MCH 28.3 MCHC 31.7 L RDW 13.4 Plt Count 138 L Carbonic Acid HCO3/H2CO3 Ratio ABG pH ABG pCO2 ABG pO2 ABG HCO3 ABG O2 Saturation ABG Base Excess FiO2 Sodium Potassium Chloride Carbon Dioxide Anion Gap BUN Creatinine Est GFR ( Amer) Est GFR (Non-Af Amer) Glucose Calcium 08/14/16 08/14/16 08/14/16 15:52 15:52 21:57 Creatine Kinase 96 99 CK-MB (CK-2) 0.49 Troponin I < 0.012 NT-Pro-B Natriuret Pep 08/14/16 08/15/16 08/15/16 21:57 03:57 03:57 Creatine Kinase 85 CK-MB (CK-2) 0.61 0.43 Troponin I < 0.012 < 0.012 NT-Pro-B Natriuret Pep 08/15/16 03:57 Creatine Kinase CK-MB (CK-2) Troponin I NT-Pro-B Natriuret Pep 282 Impressions: Chest X-Ray 08/14/16 00:00 IMPRESSION: Borderline cardiomegaly without CHF. Knee X-Ray 08/14/16 11:36 IMPRESSION: SATISFACTORY POSTOPERATIVE RIGHT KNEE. Renal Ultrasound 08/17/16 00:00 IMPRESSION: No hydronephrosis. Assessment & Plan - Diagnosis (1) Acute renal failure (ARF) Is this a current diagnosis for this admission?: YesPlan: This could be due to prerenal factors including poor oral intake for the last 48 hours complicated by hypoxia, episode of bradycardia, diuretics and nonsteroidal anti-inflammatory agents. Patient is presumably nonoliguric although we cannot quantify urine output since he does not have any Card catheter. Patient also has some electrolyte abnormalities including mild hyponatremia, mild hyperkalemia, mild hypocalcemia and very mild starting metabolic acidosis. All of this could be a consequence of volume depletion and acute renal failure. I will obtain and check urinalysis, urine sodium, urine creatinine, and urine eosinophils. Continue current IV fluids. Monitor kidney function and electrolytes and correct will replace as necessary. Patient at this time does not need any renal replacement therapy but he is closer monitoring. (2) Acute prerenal azotemia Is this a current diagnosis for this admission?: Yes (3) Acute and chronic respiratory failure Qualifiers: Respiratory failure complication: hypoxia and hypercapnia Qualified Code(s): J96.21 - Acute and chronic respiratory failure with hypoxia Is this a current diagnosis for this admission?: Yes (4) Diabetes mellitus type 2 in obese Is this a current diagnosis for this admission?: Yes (5) Essential hypertension Is this a current diagnosis for this admission?: Yes (6) Obesity hypoventilation syndrome Is this a current diagnosis for this admission?: Yes (7) Obstructive sleep apnea Is this a current diagnosis for this admission?: Yes - Notes Notes: Impression discussed with patient's at bedside. She verbalized understanding. Thank you very much for this consultation. I will follow the patient with you. - Time Time Spent: Greater than 70 Minutes
--- NOTE | 2016-08-17 20:19 | PDOC PROGRESS REPORT ---
Subjective Progress Note for:: 08/16/16 Subjective:: Patient seems to be doing better with gradual improvement. Pt is denying any chest arm or neck discomfort. Patient denying any PND, orthopnea. Patient denied any sustained palpitations, dizziness, syncope, near syncope. Patient denying any fever chills. Patient denying any other significant discomfort. Patient is maintaining sinus rhythm. 2D echo results reviewed. Patient has right knee surgery and is recuperating well. Today he was noted to be working with physical therapy. Review of systems: Rest review of systems negative. Medications: Medications have been reviewed. Physical Exam Vital Signs: Temp Pulse Resp BP Pulse Ox 98.5 F 84 20 137/75 H 100 08/16/16 11:46 08/16/16 14:00 08/16/16 11:46 08/16/16 11:46 08/16/16 11:46 Pulse Oximeter Continuous Start: 08/14/16 14: 37 Freq: Status: Complete Document 08/14/16 14:37 [facility] (Rec: 08/14/16 14:38 [facility] [email or web address]_) Pulse Oximetry Assessment Oxygen Saturation (92-100) 97 Oxygen Delivery Method Bi-pap Fraction of Inspired Oxygen (FIO2) 21 Equipment Usage Initial Set Up Continuous Pulse Oximeter 24 Hour Charge Charge Now Continuous SpO2 Machine # [id number] Pulse Oximeter Continuous Start: 08/14/16 15: 12 Freq: RTQ4 Status: Complete Document 08/15/16 21:50 [facility] (Rec: 08/15/16 22:35 [facility] ECART_RESP_) Pulse Oximetry Assessment Equipment Usage Equipment Discontinued Continuous SpO2 Machine # [id number]-13 Intake & Output 08/15/16 08/16/16 08/17/16 06:59 06:59 06:59 Intake Total 6350 2079 570 Output Total 3030 Balance 3320 2079 570 Exam: GENERAL: well-nourished and in no acute distress. Alert and oriented x3 HEAD: Atraumatic, normocephalic. EYES: Pupils equal round and reactive to light, extraocular movements intact, sclera anicteric, conjunctiva are normal. ENT: TMs normal, nares patent, oropharynx clear without exudates. Moist mucous membranes. No oral ulcerations or bleeding gums noted NECK: supple without lymphadenopathy. Trachea is central. No cervical or axillary lymphadenopathy noted. Carotids are 2+, JVD WNL LUNGS: Respiration seems nonlabored, no significant accessory muscle action noted. Breath sounds clear to auscultation bilaterally and equal noted. No wheezes rales or rhonchi noted. No significant dullness noted on percussion. CHEST: Palpation of the chest wall shows no significant chest wall tenderness. No other significant abnormalities noted. HEART: [place] INDIVIDUAL PENSION ADVISER, No PSH, 1/6 ANGELIA aortic area, 1/6 shelley systolic murmur mitral area, no rubs, no gallops. ABDOMEN: Soft, no significant tenderness appreciated, normoactive bowel sounds. No guarding, no rebound. No rigidity noted . No masses appreciated. EXTREMITIES: Pedal pulses are 1-2+, no calf tenderness noted. No clubbing or cyanosis. 1-2 + pedal edema noted. Surgical scars noted on right knee of recent knee replacement surgery. NEUROLOGICAL: Focused neurological exam showed no significant neurologic deficit. Normal speech, no focal weakness appreciated. PSYCH: Normal mood, normal affect. Judgment and insight within normal limits. SKIN: No significant ecchymosis, rash, ulcerations or signs of pruritus noted. MUSCULOSKELETAL EXAM: No significant joint swelling noted. Results Laboratory Results: 08/16/16 05:19 08/15/16 03:57 08/16/16 08/16/16 05:19 17:15 WBC 11.7 H RBC 3.55 L Hgb 9.8 L Hct 31.7 L MCV 89 MCH 27.7 MCHC 31.1 L RDW 14.1 H Plt Count 123 L Carbonic Acid 1.82 H HCO3/H2CO3 Ratio 13:1 ABG pH 7.22 L ABG pCO2 60.4 H ABG pO2 33.4 L* ABG HCO3 24.1 ABG O2 Saturation 51.8 L ABG Base Excess -4.2 FiO2 ROOM AIR 08/14/16 08/14/16 08/14/16 15:52 15:52 21:57 Creatine Kinase 96 99 CK-MB (CK-2) 0.49 Troponin I < 0.012 NT-Pro-B Natriuret Pep 08/14/16 08/15/16 08/15/16 21:57 03:57 03:57 Creatine Kinase 85 CK-MB (CK-2) 0.61 0.43 Troponin I < 0.012 < 0.012 NT-Pro-B Natriuret Pep 08/15/16 03:57 Creatine Kinase CK-MB (CK-2) Troponin I NT-Pro-B Natriuret Pep 282 Impressions: Chest X-Ray 08/14/16 00:00 IMPRESSION: Borderline cardiomegaly without CHF. Knee X-Ray 08/14/16 11:36 IMPRESSION: SATISFACTORY POSTOPERATIVE RIGHT KNEE. Assessment & Plan - Diagnosis (1) Bradycardia Is this a current diagnosis for this admission?: Yes (2) Abnormal EKG Is this a current diagnosis for this admission?: Yes (3) Coronary artery disease Qualifiers: Coronary Disease-Associated Artery/Lesion type: [place] artery [place] vs. transplanted heart: [place] heart Associated angina: angina presence unspecified Qualified Code(s): I25.10 - Atherosclerotic heart disease of [place] coronary artery without angina pectoris Is this a current diagnosis for this admission?: Yes (4) Diabetes mellitus type 2 in obese Is this a current diagnosis for this admission?: Yes (5) Essential hypertension Is this a current diagnosis for this admission?: Yes (6) Obstructive sleep apnea Is this a current diagnosis for this admission?: Yes (7) Acute and chronic respiratory failure Qualifiers: Respiratory failure complication: hypoxia and hypercapnia Qualified Code(s): J96.21 - Acute and chronic respiratory failure with hypoxia Is this a current diagnosis for this admission?: Yes (8) Abnormal electrocardiogram Is this a current diagnosis for this admission?: Yes (9) Dyslipidemia Is this a current diagnosis for this admission?: Yes - Notes Notes: classroom monitor, this was reviewed. Twelve-lead EKG, these were reviewed. Chest x-ray: Results reviewed. Medications: These were reviewed. Labs: These were reviewed. Treatment/care plan: This was reviewed and discussed with involved personnel in the care of this patient and patient. 2D echo ordered as they could not find one in the system. Bradycardia: Currently stable and improved. Continue to monitor patient. Carvedilol was ordered to be held, if heart rate less than 60. Acute on chronic respiratory failure: Patient has history of COPD and also sleep apnea. This has improved. Hypertension: Currently stable. Continue monitoring. Blood pressure goal is 140/90 or less. After 2D echo of goal of blood pressure. Dyslipidemia: Continue with statin therapy. CAD: Currently clinically stable without any chest pain or any significant EKG. Continue to follow with risk factor modification and medical management. - Time Time with patient: 15-25 minutes - CODE STATUS was discussed, patient remains full code. Surrogate decision-maker unchanged. Multiple medical problems were addressed. More than 50% of the time spent coordinating care, discussing management plans with involved caregivers. Management plans discussed with involved personnels. Medical decision making was of moderate to high complexity , patient's has multiple comorbidities.
--- NOTE | 2016-08-17 20:22 | PDOC PROGRESS REPORT ---
Subjective Progress Note for:: 08/17/16 Subjective:: Patient seems to be doing somewhat worse with increased lethargy but would answer in monosyllables. On direct questioning denying any chest arm or neck discomfort. Patient denying any PND, orthopnea. Patient denied any sustained palpitations, dizziness, syncope, near syncope. Patient denying any fever chills. Patient denying any other significant discomfort. Patient currently wearing bilevel therapy. Review of systems: Rest review of systems negative but was very limited. Medications: Medications have been reviewed. Physical Exam Vital Signs: Temp Pulse Resp BP Pulse Ox 99.6 F 81 20 122/84 100 08/17/16 17:00 08/17/16 17:00 08/17/16 17:00 08/17/16 17:00 08/17/16 16:12 Pulse Oximeter Continuous Start: 08/14/16 14: 37 Freq: Status: Complete Document 08/14/16 14:37 [facility] (Rec: 08/14/16 14:38 [facility] [email or web address]) Pulse Oximetry Assessment Oxygen Saturation (92-100) 97 Oxygen Delivery Method Bi-pap Fraction of Inspired Oxygen (FIO2) 21 Equipment Usage Initial Set Up Continuous Pulse Oximeter 24 Hour Charge Charge Now Continuous SpO2 Machine # [id number] Pulse Oximeter Continuous Start: 08/14/16 15: 12 Freq: RTQ4 Status: Complete Document 08/15/16 21:50 [facility] (Rec: 08/15/16 22:35 [facility] [email or web address]) Pulse Oximetry Assessment Equipment Usage Equipment Discontinued Continuous SpO2 Machine # [id number]-13 Intake & Output 08/16/16 08/17/16 08/18/16 06:59 06:59 06:59 Intake Total 5573 729 Balance 4850 495 Exam: General appearance: Patient noted to be very lethargic, well-developed, well- nourished; patient has respiratory failure and is requiring BiPAP. Patient noted to be oriented to place and person but not to time. HEAD: Atraumatic, normocephalic. EYES: Pupils equal round and reactive to light, extraocular movements intact, sclera anicteric, conjunctiva are normal. ENT: TMs normal, nares patent, oropharynx clear without exudates. Moist mucous membranes. No oral ulcerations or bleeding gums noted NECK: supple without lymphadenopathy. Trachea is central. No cervical or axillary lymphadenopathy noted. Carotids are 2+, JVD WNL LUNGS: Respiration seems nonlabored, no significant accessory muscle action noted. Breath sounds clear to auscultation bilaterally and equal noted. No wheezes rales or rhonchi noted. No significant dullness noted on percussion. CHEST: Palpation of the chest wall shows no significant chest wall tenderness. No other significant abnormalities noted. HEART: [place] ACUTE COORDINATOR, No PSH, 1/6 ANGELIA aortic area, 1/6 shelley systolic murmur mitral area, no rubs, no gallops. ABDOMEN: Soft, no significant tenderness appreciated, normoactive bowel sounds. No guarding, no rebound. No rigidity noted . No masses appreciated. EXTREMITIES: Pedal pulses are 1-2+, no calf tenderness noted. No clubbing or cyanosis. 1+ pedal edema noted NEUROLOGICAL: Focused neurological exam showed no significant neurologic deficit. Patient has slurred speech but secondary to lethargy, no focal weakness appreciated. PSYCH: Psych exam could not be performed today.. SKIN: No significant ecchymosis, rash, ulcerations or signs of pruritus noted. MUSCULOSKELETAL EXAM: No significant joint swelling noted. Results Laboratory Results: 08/17/16 17:52 08/17/16 04:43 08/16/16 08/17/16 08/17/16 21:10 04:43 04:43 WBC 10.5 RBC 3.15 L Hgb 9.0 L Hct 28.5 L MCV 91 MCH 28.7 MCHC 31.7 L RDW 13.9 Plt Count 137 L Carbonic Acid 1.51 H HCO3/H2CO3 Ratio 15:1 ABG pH 7.27 L ABG pCO2 50.3 H ABG pO2 136.3 H ABG HCO3 22.7 ABG O2 Saturation 98.3 H ABG Base Excess -4.3 FiO2 35% Sodium 132.4 L Potassium 5.1 H Chloride 100 Carbon Dioxide 21 L Anion Gap 11 BUN 48 H Creatinine 4.75 H Est GFR ( Amer) 15 L Est GFR (Non-Af Amer) 12 L Glucose 145 H Calcium 7.8 L 08/17/16 17:52 WBC 10.2 RBC 3.14 L Hgb 8.9 L Hct 28.1 L MCV 90 MCH 28.3 MCHC 31.7 L RDW 13.4 Plt Count 138 L Carbonic Acid HCO3/H2CO3 Ratio ABG pH ABG pCO2 ABG pO2 ABG HCO3 ABG O2 Saturation ABG Base Excess FiO2 Sodium Potassium Chloride Carbon Dioxide Anion Gap BUN Creatinine Est GFR ( Amer) Est GFR (Non-Af Amer) Glucose Calcium 08/14/16 08/14/16 08/14/16 15:52 15:52 21:57 Creatine Kinase 96 99 CK-MB (CK-2) 0.49 Troponin I < 0.012 NT-Pro-B Natriuret Pep 08/14/16 08/15/16 08/15/16 21:57 03:57 03:57 Creatine Kinase 85 CK-MB (CK-2) 0.61 0.43 Troponin I < 0.012 < 0.012 NT-Pro-B Natriuret Pep 08/15/16 03:57 Creatine Kinase CK-MB (CK-2) Troponin I NT-Pro-B Natriuret Pep 282 Impressions: Chest X-Ray 08/14/16 00:00 IMPRESSION: Borderline cardiomegaly without CHF. Knee X-Ray 08/14/16 11:36 IMPRESSION: SATISFACTORY POSTOPERATIVE RIGHT KNEE. Renal Ultrasound 08/17/16 00:00 IMPRESSION: No hydronephrosis. Assessment & Plan - Diagnosis (1) Bradycardia Is this a current diagnosis for this admission?: Yes (2) Abnormal EKG Is this a current diagnosis for this admission?: Yes (3) Coronary artery disease Qualifiers: Coronary Disease-Associated Artery/Lesion type: [place] artery [place] vs. transplanted heart: [place] heart Associated angina: angina presence unspecified Qualified Code(s): I25.10 - Atherosclerotic heart disease of [place] coronary artery without angina pectoris Is this a current diagnosis for this admission?: Yes (4) Diabetes mellitus type 2 in obese Is this a current diagnosis for this admission?: Yes (5) Essential hypertension Is this a current diagnosis for this admission?: Yes (6) Obstructive sleep apnea Is this a current diagnosis for this admission?: Yes (7) Acute and chronic respiratory failure Qualifiers: Respiratory failure complication: hypoxia and hypercapnia Qualified Code(s): J96.21 - Acute and chronic respiratory failure with hypoxia Is this a current diagnosis for this admission?: Yes (8) Abnormal electrocardiogram Is this a current diagnosis for this admission?: Yes (9) Dyslipidemia Is this a current diagnosis for this admission?: Yes - Notes Notes: monitoring manager, this was reviewed. Twelve-lead EKG, these were reviewed. EKG ordered for tomorrow. Chest x-ray: Results reviewed. Chest x-ray ordered for tomorrow. Medications: These were reviewed. Labs: These were reviewed. Treatment/care plan: This was reviewed and discussed with involved personnel in the care of this patient and patient. 2D echo ordered shows normal LVEF. Please see dictated report for details. Bradycardia: Currently stable and improved. Continue to monitor patient. Carvedilol was ordered to be held, if heart rate less than 60. Acute on chronic respiratory failure: Patient has history of COPD and also sleep apnea. This has improved. Hypertension: Currently stable. Continue monitoring. Blood pressure goal is 140/90 or less. After 2D echo of goal of blood pressure. Dyslipidemia: Continue with statin therapy. CAD: Currently clinically stable without any chest pain or any significant EKG. Continue to follow with risk factor modification and medical management. Patient noted to be more lethargic. Patient evaluated by both meterman and military communications specialist. I will order a 12-lead EKG for tomorrow morning and also a chest x-ray for tomorrow morning. I feel that patient may be now retaining fluid clinically but difficult to assess. - Time Time with patient: Greater than 35 minutes - CODE STATUS was discussed, patient remains full code. Surrogate decision-maker patient's . Multiple medical problems were addressed. More than 50% of the time spent coordinating care, discussing management plans with involved caregivers. Management plans discussed with involved personnels. Medical decision making was of moderate to high complexity, patient's has multiple comorbidities. Medications reviewed and adjusted accordingly: Yes
[2016-08-17] MEDS: ATORVASTATIN CALCIUM 20 MG TABLET PO SCH (22:17)
[2016-08-17] MEDS: RIVAROXABAN 10 MG TABLET PO SCH (22:17)
[2016-08-18 00:47] LABS: HEMOGLOBIN 8.5 g/dL (13.5-17.0); HGB HCT DIFFERENCE -1.5; MEAN CORPUSCULAR HEMOGLOBIN 28.2 pg (27.0-33.4); MEAN CORPUSCULAR HGB CONC 31.7 g/dL (32.0-36.0); MEAN CORPUSCULAR VOLUME 89 fl (80-97); RED BLOOD COUNT 3.03 10^6/uL (4.35-5.55); RED CELL DISTRIBUTION WIDTH 13.6 % (11.5-14.0); WHITE BLOOD COUNT 11.3 10^3/uL (4.0-10.5)
[2016-08-18] MEDS: NORMAL SALINE 1000 ML 1,000 ML IV PRN ×3 (01:20→17:38)
[2016-08-18] MEDS: IPRATROPIUM/ALBUTEROL 0.5-2.5 MG/3 ML AMPUL NEB SCH ×4 (02:22→20:09)
[2016-08-18 05:18] LABS: APPEARANCE,URINE CLOUDY; BILIRUBIN,URINE NEGATIVE (NEGATIVE); GLUCOSE, URINE 50 mg/dL (NEGATIVE); KETONES,URINE NEGATIVE (NEGATIVE); LEUKOCYTE ESTERASE,URINE NEGATIVE (NEGATIVE); NITRITE,URINE NEGATIVE (NEGATIVE); PROTEIN,URINE 100 mg/dL (NEGATIVE); URINE SPECIFIC GRAVITY 1.008; UROBILINOGEN,URINE NEGATIVE mg/dL (<2.0)
[2016-08-18 06:01] LABS: URINE CREATININE 139.8 mg/dL (22-328)
[2016-08-18 06:08] LABS: ABSOLUTE EOSINOPHILS # (AUTO) 0.2 10^3/uL (0.0-0.6); ABSOLUTE LYMPHOCYTES (AUTO) 2.1 10^3/uL (0.5-4.7); ABSOLUTE MONOCYTES (AUTO) 2.1 10^3/uL (0.1-1.4); ABSOLUTE NEUT (AUTO) 7.2 10^3/uL (1.7-8.2); BASOPHILS % (AUTO) 0.2 % (0-2); EOSINOPHILS % (AUTO) 1.5 % (0-6); HEMATOCRIT 26.3 % (37.9-51.0); HEMOGLOBIN 8.4 g/dL (13.5-17.0); HGB HCT DIFFERENCE -1.1; LYMPHOCYTES % (AUTO) 18.1 % (13-45); MEAN CORPUSCULAR HEMOGLOBIN 28.3 pg (27.0-33.4); MEAN CORPUSCULAR VOLUME 89 fl (80-97); MONOCYTES % (AUTO) 18.1 % (3-13); RED BLOOD COUNT 2.97 10^6/uL (4.35-5.55); RED CELL DISTRIBUTION WIDTH 13.8 % (11.5-14.0); SEGMENTED NEUTROPHILS % (AUTO) 62.1 % (42-78); WHITE BLOOD COUNT 11.6 10^3/uL (4.0-10.5)
[2016-08-18] MEDS: LANSOPRAZOLE 30 MG TAB.RAP.DR PO SCH (06:21)
--- NOTE | 2016-08-18 06:30 | PDOC PROGRESS REPORT ---
Subjective Progress Note for:: 08/18/16 Subjective:: Mental status and alertness are much improved today. Physical Exam Vital Signs: Temp Pulse Resp BP Pulse Ox 37.1 C 81 16 118/56 L 100 08/18/16 03:35 08/18/16 03:35 08/18/16 03:35 08/18/16 03:35 08/18/16 03:35 Pulse Oximeter Continuous Start: 08/14/16 14: 37 Freq: Status: Complete Document 08/14/16 14:37 [facility] (Rec: 08/14/16 14:38 [facility] [email or web address]) Pulse Oximetry Assessment Oxygen Saturation (92-100) 97 Oxygen Delivery Method Bi-pap Fraction of Inspired Oxygen (FIO2) 21 Equipment Usage Initial Set Up Continuous Pulse Oximeter 24 Hour Charge Charge Now Continuous SpO2 Machine # [id number] Pulse Oximeter Continuous Start: 08/14/16 15: 12 Freq: RTQ4 Status: Complete Document 08/15/16 21:50 [facility] (Rec: 08/15/16 22:35 [facility] ECART_RESP_) Pulse Oximetry Assessment Equipment Usage Equipment Discontinued Continuous SpO2 Machine # [id number]-13 Intake & Output 08/16/16 08/17/16 08/18/16 06:59 06:59 06:59 Intake Total 1624 190 3550 Output Total 200 Balance 1791 406 4010 General appearance: PRESENT: no acute distress Head exam: PRESENT: normocephalic Respiratory exam: PRESENT: unlabored, other - On CPAP Cardiovascular exam: PRESENT: RRR Pulses: PRESENT: +1 pedal pulses bilateral Vascular exam: PRESENT: normal capillary refill GI/Abdominal exam: PRESENT: soft Rectal exam: PRESENT: deferred Musculoskeletal exam: PRESENT: other - Lower extremity picot dressing clean dry and intact. Neurological exam: PRESENT: alert, awake, oriented to person, oriented to place , oriented to situation Skin exam: PRESENT: dry, intact, warm. ABSENT: cyanosis, rash Results Laboratory Results: 08/18/16 05:21 08/17/16 08/18/16 08/18/16 17:52 00:41 04:51 WBC 10.2 11.3 H RBC 3.14 L 3.03 L Hgb 8.9 L 8.5 L Hct 28.1 L 27.0 L MCV 90 89 MCH 28.3 28.2 MCHC 31.7 L 31.7 L RDW 13.4 13.6 Plt Count 138 L 156 Seg Neutrophils % Lymphocytes % Monocytes % Eosinophils % Basophils % Absolute Neutrophils Absolute Lymphocytes Absolute Monocytes Absolute Eosinophils Absolute Basophils Urine Color YELLOW Urine Appearance CLOUDY Urine pH 5.0 Ur Specific [place] 1.008 Urine Protein 100 H Urine Glucose (UA) 50 H Urine Ketones NEGATIVE Urine Blood MODERATE H Urine Nitrite NEGATIVE Ur Leukocyte Esterase NEGATIVE Urine WBC (Auto) 11 Urine RBC (Auto) 2 08/18/16 05:21 WBC 11.6 H RBC 2.97 L Hgb 8.4 L Hct 26.3 L MCV 89 MCH 28.3 MCHC 32.0 RDW 13.8 Plt Count 150 Seg Neutrophils % 62.1 Lymphocytes % 18.1 Monocytes % 18.1 H Eosinophils % 1.5 Basophils % 0.2 Absolute Neutrophils 7.2 Absolute Lymphocytes 2.1 Absolute Monocytes 2.1 H Absolute Eosinophils 0.2 Absolute Basophils 0.0 Urine Color Urine Appearance Urine pH Ur Specific [place] Urine Protein Urine Glucose (UA) Urine Ketones Urine Blood Urine Nitrite Ur Leukocyte Esterase Urine WBC (Auto) Urine RBC (Auto) 08/14/16 08/14/16 08/14/16 15:52 15:52 21:57 Creatine Kinase 96 99 CK-MB (CK-2) 0.49 Troponin I < 0.012 NT-Pro-B Natriuret Pep 08/14/16 08/15/16 08/15/16 21:57 03:57 03:57 Creatine Kinase 85 CK-MB (CK-2) 0.61 0.43 Troponin I < 0.012 < 0.012 NT-Pro-B Natriuret Pep 08/15/16 03:57 Creatine Kinase CK-MB (CK-2) Troponin I NT-Pro-B Natriuret Pep 282 Impressions: Chest X-Ray 08/14/16 00:00 IMPRESSION: Borderline cardiomegaly without CHF. Knee X-Ray 08/14/16 11:36 IMPRESSION: SATISFACTORY POSTOPERATIVE RIGHT KNEE. Renal Ultrasound 08/17/16 00:00 IMPRESSION: No hydronephrosis. Status: Imported from PACS Assessment & Plan - Diagnosis (1) Arthritis of knee, right Is this a current diagnosis for this admission?: YesPlan: 66-year-old black male with multiple comorbidities status post knee arthroplasty. Remains at 27%. Patient has made minimal progress with physical therapy. Nephrology, pulmonology, cardiology, and the hospitalist service are involved in his care. (2) Obstructive sleep apnea Is this a current diagnosis for this admission?: Yes - Time Time Spent with patient: 15-24 minutes Anticipated discharge: SNF Within: Other
[2016-08-18 06:33] LABS: ANION GAP 11 (5-19); BLOOD UREA NITROGEN 57 mg/dL (7-20); CALCIUM 7.8 mg/dL (8.4-10.2); CARBON DIOXIDE 22 mmol/L (22-30); CHLORIDE 102 mmol/L (98-107); CREATININE RESULT 4.62 mg/dL (0.52-1.25); GLUCOSE 110 mg/dL (75-110); PHOSPHORUS 5.5 mg/dL (2.5-4.5); POTASSIUM 4.8 mmol/L (3.6-5.0); SODIUM 134.7 mmol/L (137-145)
[2016-08-18 06:46] LABS: ARTERIAL BLOOD BASE EXCESS -4.5 mmol/L
[2016-08-18] MEDS: ONDANSETRON HCL INJ/PF 4 MG/2 ML SDV IV PRN (08:29)
--- NOTE | 2016-08-18 08:59 | RADIOLOGY REPORT (SQ) ---
EXAM DESCRIPTION: CHEST SINGLE VIEW COMPLETED DATE/TIME: 08/18/2016 8:27 am REASON FOR STUDY: CHF Renal failure Resp failure COMPARISON: Chest films 08/14/2016, 03/09/2014 EXAM PARAMETERS: NUMBER OF VIEWS: One view. TECHNIQUE: Single frontal radiographic view of the chest acquired. RADIATION DOSE: NA LIMITATIONS: None. FINDINGS: LUNGS AND PLEURA: No opacities, masses or pneumothorax. No pleural effusion. MEDIASTINUM AND HILAR STRUCTURES: No masses. Contour normal. HEART AND VASCULAR STRUCTURES: Heart normal in size. Normal vasculature. BONES: No acute findings. HARDWARE: None in the chest. OTHER: No other significant finding. IMPRESSION: NO ACUTE RADIOGRAPHIC FINDING IN THE CHEST. TECHNICAL DOCUMENTATION: JOB ID: [id number]
[2016-08-18] MEDS: SENNOSIDES/DOCUSATE 8.6-50 MG 1 EACH TABLET PO SCH ×2 (10:10→17:27)
[2016-08-18] MEDS: PRENATAL VITAMIN W-O CA NO5/FE FUMARATE/FA CAPSULE PO SCH (10:10)
[2016-08-18] MEDS: PREGABALIN 75 MG CAPSULE PO SCH ×2 (10:10→21:50)
[2016-08-18] MEDS: POTASSIUM CHLORIDE 10 MEQ TABLET.SA PO SCH (10:11)
[2016-08-18] MEDS: CARVEDILOL 12.5 MG TABLET PO SCH ×2 (10:11→21:50)
[2016-08-18 12:39] LABS: HEMATOCRIT 26.5 % (37.9-51.0); HEMOGLOBIN 8.4 g/dL (13.5-17.0); HGB HCT DIFFERENCE -1.3; MEAN CORPUSCULAR HEMOGLOBIN 28.3 pg (27.0-33.4); MEAN CORPUSCULAR HGB CONC 31.8 g/dL (32.0-36.0); MEAN CORPUSCULAR VOLUME 89 fl (80-97); RED BLOOD COUNT 2.97 10^6/uL (4.35-5.55); RED CELL DISTRIBUTION WIDTH 13.9 % (11.5-14.0); WHITE BLOOD COUNT 10.3 10^3/uL (4.0-10.5)
--- NOTE | 2016-08-18 12:55 | PDOC PROGRESS REPORT ---
Subjective Progress Note for:: 08/18/16 Subjective:: awake and alert c/o nosebleed Physical Exam Vital Signs: Temp Pulse Resp BP Pulse Ox 99.1 F 81 18 118/58 L 97 08/18/16 07:32 08/18/16 08:43 08/18/16 08:44 08/18/16 07:32 08/18/16 08:43 Pulse Oximeter Continuous Start: 08/14/16 14: 37 Freq: Status: Complete Document 08/14/16 14:37 [facility] (Rec: 08/14/16 14:38 [facility] [email or web address]_) Pulse Oximetry Assessment Oxygen Saturation (92-100) 97 Oxygen Delivery Method Bi-pap Fraction of Inspired Oxygen (FIO2) 21 Equipment Usage Initial Set Up Continuous Pulse Oximeter 24 Hour Charge Charge Now Continuous SpO2 Machine # [id number] Pulse Oximeter Continuous Start: 08/14/16 15: 12 Freq: RTQ4 Status: Complete Document 08/15/16 21:50 [facility] (Rec: 08/15/16 22:35 [facility] [email or web address]_) Pulse Oximetry Assessment Equipment Usage Equipment Discontinued Continuous SpO2 Machine # [id number] Intake & Output 08/17/16 08/18/16 08/19/16 06:59 06:59 06:59 Intake Total 690 3550 Output Total 200 Balance 690 3350 General appearance: PRESENT: no acute distress, cooperative, disheveled, morbidly obese, well-developed Head exam: PRESENT: atraumatic, normocephalic Eye exam: PRESENT: conjunctiva pale, EOMI Mouth exam: PRESENT: dry mucosa, neck supple Neck exam: ABSENT: carotid bruit, JVD, lymphadenopathy, thyromegaly Respiratory exam: PRESENT: decreased breath sounds, prolonged expiratory phas, rales, rhonchi, unlabored Cardiovascular exam: PRESENT: RRR, +S1, +S2 Pulses: PRESENT: normal radial pulses GI/Abdominal exam: PRESENT: normal bowel sounds, soft. ABSENT: distended, guarding, mass, organolmegaly, rebound, tenderness Rectal exam: PRESENT: deferred Extremities exam: PRESENT: +2 edema Psychiatric exam: PRESENT: normal mood Skin exam: PRESENT: dry, warm Results Laboratory Results: 08/18/16 05:21 08/18/16 05:21 08/17/16 08/18/16 08/18/16 17:52 00:41 04:51 WBC 10.2 11.3 H RBC 3.14 L 3.03 L Hgb 8.9 L 8.5 L Hct 28.1 L 27.0 L MCV 90 89 MCH 28.3 28.2 MCHC 31.7 L 31.7 L RDW 13.4 13.6 Plt Count 138 L 156 Seg Neutrophils % Lymphocytes % Monocytes % Eosinophils % Basophils % Absolute Neutrophils Absolute Lymphocytes Absolute Monocytes Absolute Eosinophils Absolute Basophils Carbonic Acid HCO3/H2CO3 Ratio ABG pH ABG pCO2 ABG pO2 ABG HCO3 ABG O2 Saturation ABG Base Excess FiO2 Sodium Potassium Chloride Carbon Dioxide Anion Gap BUN Creatinine Est GFR ( Amer) Est GFR (Non-Af Amer) Glucose Calcium Phosphorus Magnesium Urine Color YELLOW Urine Appearance CLOUDY Urine pH 5.0 Ur Specific [place] 1.008 Urine Protein 100 H Urine Glucose (UA) 50 H Urine Ketones NEGATIVE Urine Blood MODERATE H Urine Nitrite NEGATIVE Ur Leukocyte Esterase NEGATIVE Urine WBC (Auto) 11 Urine RBC (Auto) 2 08/18/16 08/18/16 08/18/16 05:21 05:21 06:30 WBC 11.6 H RBC 2.97 L Hgb 8.4 L Hct 26.3 L MCV 89 MCH 28.3 MCHC 32.0 RDW 13.8 Plt Count 150 Seg Neutrophils % 62.1 Lymphocytes % 18.1 Monocytes % 18.1 H Eosinophils % 1.5 Basophils % 0.2 Absolute Neutrophils 7.2 Absolute Lymphocytes 2.1 Absolute Monocytes 2.1 H Absolute Eosinophils 0.2 Absolute Basophils 0.0 Carbonic Acid 1.60 H HCO3/H2CO3 Ratio 14:1 ABG pH 7.25 L ABG pCO2 53.1 H ABG pO2 106.3 H ABG HCO3 22.8 ABG O2 Saturation 97.0 ABG Base Excess -4.5 FiO2 35% Sodium 134.7 L Potassium 4.8 Chloride 102 Carbon Dioxide 22 Anion Gap 11 BUN 57 H Creatinine 4.62 H Est GFR ( Amer) 15 L Est GFR (Non-Af Amer) 13 L Glucose 110 Calcium 7.8 L Phosphorus 5.5 H Magnesium 2.0 Urine Color Urine Appearance Urine pH Ur Specific [place] Urine Protein Urine Glucose (UA) Urine Ketones Urine Blood Urine Nitrite Ur Leukocyte Esterase Urine WBC (Auto) Urine RBC (Auto) 08/14/16 08/14/16 08/14/16 15:52 15:52 21:57 Creatine Kinase 96 99 CK-MB (CK-2) 0.49 Troponin I < 0.012 NT-Pro-B Natriuret Pep 08/14/16 08/15/16 08/15/16 21:57 03:57 03:57 Creatine Kinase 85 CK-MB (CK-2) 0.61 0.43 Troponin I < 0.012 < 0.012 NT-Pro-B Natriuret Pep 08/15/16 03:57 Creatine Kinase CK-MB (CK-2) Troponin I NT-Pro-B Natriuret Pep 282 Impressions: Knee X-Ray 08/14/16 11:36 IMPRESSION: SATISFACTORY POSTOPERATIVE RIGHT KNEE. Renal Ultrasound 08/17/16 00:00 IMPRESSION: No hydronephrosis. Chest X-Ray 08/18/16 07:00 IMPRESSION: NO ACUTE RADIOGRAPHIC FINDING IN THE CHEST. Assessment & Plan - Diagnosis (1) Abnormal EKG Is this a current diagnosis for this admission?: Yes (2) Acute and chronic respiratory failure Qualifiers: Respiratory failure complication: hypoxia and hypercapnia Qualified Code(s): J96.21 - Acute and chronic respiratory failure with hypoxia Is this a current diagnosis for this admission?: YesPlan: Respiratory and metabolic acidosis (3) Acute renal failure (ARF) Is this a current diagnosis for this admission?: Yes (4) Obesity hypoventilation syndrome Is this a current diagnosis for this admission?: Yes (5) Obstructive sleep apnea Is this a current diagnosis for this admission?: Yes
--- NOTE | 2016-08-18 14:09 | PDOC PROGRESS REPORT ---
Subjective Progress Note for:: 08/18/16 Subjective:: More alert today. He complains of knee pain but no other complaints. Had an episode of epistaxis in the morning Physical Exam Vital Signs: Temp Pulse Resp BP Pulse Ox 99.1 F 81 18 118/58 L 97 08/18/16 07:32 08/18/16 08:43 08/18/16 08:44 08/18/16 07:32 08/18/16 08:43 Pulse Oximeter Continuous Start: 08/14/16 14: 37 Freq: Status: Complete Document 08/14/16 14:37 [facility] (Rec: 08/14/16 14:38 [facility] [email or web address]) Pulse Oximetry Assessment Oxygen Saturation (92-100) 97 Oxygen Delivery Method Bi-pap Fraction of Inspired Oxygen (FIO2) 21 Equipment Usage Initial Set Up Continuous Pulse Oximeter 24 Hour Charge Charge Now Continuous SpO2 Machine # [id number] Pulse Oximeter Continuous Start: 08/14/16 15: 12 Freq: RTQ4 Status: Complete Document 08/15/16 21:50 [facility] (Rec: 08/15/16 22:35 [facility] ECART_RESP_) Pulse Oximetry Assessment Equipment Usage Equipment Discontinued Continuous SpO2 Machine # [id number] Intake & Output 08/17/16 08/18/16 08/19/16 06:59 06:59 06:59 Intake Total 690 3550 Output Total 200 Balance 690 3350 General appearance: PRESENT: no acute distress Eye exam: PRESENT: conjunctiva pink. ABSENT: scleral icterus Mouth exam: PRESENT: moist, tongue midline Neck exam: ABSENT: JVD Respiratory exam: PRESENT: clear to auscultation roman. ABSENT: rales, rhonchi, wheezes Cardiovascular exam: PRESENT: RRR. ABSENT: diastolic murmur, rubs, systolic murmur GI/Abdominal exam: PRESENT: normal bowel sounds, soft. ABSENT: distended, guarding, mass, organolmegaly, rebound, tenderness Extremities exam: PRESENT: other - Dressing on right knee.. ABSENT: calf tenderness, clubbing, pedal edema Neurological exam: PRESENT: alert, awake, oriented to person, oriented to place , oriented to time, oriented to situation, CN II-XII grossly intact. ABSENT: motor sensory deficit Psychiatric exam: PRESENT: appropriate affect Results Laboratory Results: 08/18/16 12:21 08/18/16 05:21 08/17/16 08/18/16 08/18/16 17:52 00:41 04:51 WBC 10.2 11.3 H RBC 3.14 L 3.03 L Hgb 8.9 L 8.5 L Hct 28.1 L 27.0 L MCV 90 89 MCH 28.3 28.2 MCHC 31.7 L 31.7 L RDW 13.4 13.6 Plt Count 138 L 156 Seg Neutrophils % Lymphocytes % Monocytes % Eosinophils % Basophils % Absolute Neutrophils Absolute Lymphocytes Absolute Monocytes Absolute Eosinophils Absolute Basophils Carbonic Acid HCO3/H2CO3 Ratio ABG pH ABG pCO2 ABG pO2 ABG HCO3 ABG O2 Saturation ABG Base Excess FiO2 Sodium Potassium Chloride Carbon Dioxide Anion Gap BUN Creatinine Est GFR ( Amer) Est GFR (Non-Af Amer) Glucose Calcium Phosphorus Magnesium Urine Color YELLOW Urine Appearance CLOUDY Urine pH 5.0 Ur Specific [place] 1.008 Urine Protein 100 H Urine Glucose (UA) 50 H Urine Ketones NEGATIVE Urine Blood MODERATE H Urine Nitrite NEGATIVE Ur Leukocyte Esterase NEGATIVE Urine WBC (Auto) 11 Urine RBC (Auto) 2 08/18/16 08/18/16 08/18/16 05:21 05:21 06:30 WBC 11.6 H RBC 2.97 L Hgb 8.4 L Hct 26.3 L MCV 89 MCH 28.3 MCHC 32.0 RDW 13.8 Plt Count 150 Seg Neutrophils % 62.1 Lymphocytes % 18.1 Monocytes % 18.1 H Eosinophils % 1.5 Basophils % 0.2 Absolute Neutrophils 7.2 Absolute Lymphocytes 2.1 Absolute Monocytes 2.1 H Absolute Eosinophils 0.2 Absolute Basophils 0.0 Carbonic Acid 1.60 H HCO3/H2CO3 Ratio 14:1 ABG pH 7.25 L ABG pCO2 53.1 H ABG pO2 106.3 H ABG HCO3 22.8 ABG O2 Saturation 97.0 ABG Base Excess -4.5 FiO2 35% Sodium 134.7 L Potassium 4.8 Chloride 102 Carbon Dioxide 22 Anion Gap 11 BUN 57 H Creatinine 4.62 H Est GFR ( Amer) 15 L Est GFR (Non-Af Amer) 13 L Glucose 110 Calcium 7.8 L Phosphorus 5.5 H Magnesium 2.0 Urine Color Urine Appearance Urine pH Ur Specific [place] Urine Protein Urine Glucose (UA) Urine Ketones Urine Blood Urine Nitrite Ur Leukocyte Esterase Urine WBC (Auto) Urine RBC (Auto) 08/18/16 12:21 WBC 10.3 RBC 2.97 L Hgb 8.4 L Hct 26.5 L MCV 89 MCH 28.3 MCHC 31.8 L RDW 13.9 Plt Count 159 Seg Neutrophils % Lymphocytes % Monocytes % Eosinophils % Basophils % Absolute Neutrophils Absolute Lymphocytes Absolute Monocytes Absolute Eosinophils Absolute Basophils Carbonic Acid HCO3/H2CO3 Ratio ABG pH ABG pCO2 ABG pO2 ABG HCO3 ABG O2 Saturation ABG Base Excess FiO2 Sodium Potassium Chloride Carbon Dioxide Anion Gap BUN Creatinine Est GFR ( Amer) Est GFR (Non-Af Amer) Glucose Calcium Phosphorus Magnesium Urine Color Urine Appearance Urine pH Ur Specific [place] Urine Protein Urine Glucose (UA) Urine Ketones Urine Blood Urine Nitrite Ur Leukocyte Esterase Urine WBC (Auto) Urine RBC (Auto) 08/14/16 08/14/16 08/14/16 15:52 15:52 21:57 Creatine Kinase 96 99 CK-MB (CK-2) 0.49 Troponin I < 0.012 NT-Pro-B Natriuret Pep 08/14/16 08/15/16 08/15/16 21:57 03:57 03:57 Creatine Kinase 85 CK-MB (CK-2) 0.61 0.43 Troponin I < 0.012 < 0.012 NT-Pro-B Natriuret Pep 08/15/16 03:57 Creatine Kinase CK-MB (CK-2) Troponin I NT-Pro-B Natriuret Pep 282 Impressions: Knee X-Ray 08/14/16 11:36 IMPRESSION: SATISFACTORY POSTOPERATIVE RIGHT KNEE. Renal Ultrasound 08/17/16 00:00 IMPRESSION: No hydronephrosis. Chest X-Ray 08/18/16 07:00 IMPRESSION: NO ACUTE RADIOGRAPHIC FINDING IN THE CHEST. Assessment & Plan - Diagnosis (1) Acute and chronic respiratory failure Qualifiers: Respiratory failure complication: hypoxia and hypercapnia Qualified Code(s): J96.21 - Acute and chronic respiratory failure with hypoxia Is this a current diagnosis for this admission?: YesPlan: Likely secondary to obstructive sleep apnea made worse by the narcotics. More alert today and appears to be doing better from respiratory standpoint. (2) Obstructive sleep apnea Is this a current diagnosis for this admission?: YesPlan: Continue with BiPAP (3) Bradycardia Is this a current diagnosis for this admission?: YesPlan: Likely secondary to hypoxia (4) Coronary artery disease Qualifiers: Coronary Disease-Associated Artery/Lesion type: [place] artery [place] vs. transplanted heart: [place] heart Associated angina: angina presence unspecified Qualified Code(s): I25.10 - Atherosclerotic heart disease of [place] coronary artery without angina pectoris Is this a current diagnosis for this admission?: YesPlan: Denies any chest pain (5) Diabetes mellitus type 2 in obese Is this a current diagnosis for this admission?: YesPlan: Continue with sliding scale insulin. (6) Essential hypertension Is this a current diagnosis for this admission?: Yes (7) PTSD (post-traumatic stress disorder) Is this a current diagnosis for this admission?: Yes (8) BPH (benign prostatic hyperplasia) Qualifiers: Lower urinary tract symptom presence: presence of symptoms unspecified Qualified Code(s): N40.0 - Benign prostatic hyperplasia without lower urinary tract symptoms Is this a current diagnosis for this admission?: Yes (9) Acute renal failure (ARF) Is this a current diagnosis for this admission?: YesPlan: The patient was evaluated by nephrology yesterday. Renal ultrasound shows no evidence for hydronephrosis. Most likely secondary to prerenal causes and will continue the IV fluids. The patient's creatinine is essentially unchanged from yesterday. - Time Time Spent with patient: 25-34 minutes - Inpatient Certification Medical Necessity: Need Close Monitoring Due to Risk of Patient Decompensation, Need For IV Fluids
--- NOTE | 2016-08-18 17:14 | PDOC PROGRESS REPORT ---
Subjective Progress Note for:: 08/18/16 Subjective:: According to the patient's nurses he seems to be more awake and alert today. Although when I saw him he seems to be pretty much the same with me. He still on the BiPAP, answers few questions with 1 or 2 phrases and goes right back to sleep with his eyes closed. According to the nurses he is making some urine both on the urine out and sometimes in his diaper. Patient is not eating much. He is also weak to go for any physical therapy at this time. Physical Exam Vital Signs: Temp Pulse Resp BP Pulse Ox 98.9 F 77 16 136/72 H 100 08/18/16 11:45 08/18/16 14:06 08/18/16 16:29 08/18/16 11:45 08/18/16 16:29 Pulse Oximeter Continuous Start: 08/14/16 14: 37 Freq: Status: Complete Document 08/14/16 14:37 [facility] (Rec: 08/14/16 14:38 [facility] ECART_RESP_) Pulse Oximetry Assessment Oxygen Saturation (92-100) 97 Oxygen Delivery Method Bi-pap Fraction of Inspired Oxygen (FIO2) 21 Equipment Usage Initial Set Up Continuous Pulse Oximeter 24 Hour Charge Charge Now Continuous SpO2 Machine # [id number] Pulse Oximeter Continuous Start: 08/14/16 15: 12 Freq: RTQ4 Status: Complete Document 08/15/16 21:50 [facility] (Rec: 08/15/16 22:35 [facility] ECART_RESP_) Pulse Oximetry Assessment Equipment Usage Equipment Discontinued Continuous SpO2 Machine # [id number] Intake & Output 08/17/16 08/18/16 08/19/16 06:59 06:59 06:59 Intake Total 690 3550 Output Total 200 Balance 690 3350 Exam: General appearance: PRESENT: no acute distress, well-developed, well-nourished, is still on BiPAP and any lethargic for me. Head exam: PRESENT: atraumatic, normocephalic Eye exam: PRESENT: conjunctiva pale, PERRLA. ABSENT: scleral icterus Neck exam: ABSENT: JVD Respiratory exam: PRESENT: Diminished breath sounds. ABSENT: crackles, rales, rhonchi, unlabored, wheezes Cardiovascular exam: PRESENT: Regular rate rhythm -+S1, +S2. ABSENT: diastolic murmur, systolic murmur GI/Abdominal exam: PRESENT: normal bowel sounds, soft. ABSENT: guarding, mass, tenderness Extremities exam: Grade 1 bilateral lower extremity pitting edema] Neurological exam: PRESENT: Still lethargic and answers questions with limited answers. Skin exam: PRESENT: dry, warm, Results Laboratory Results: 08/18/16 12:21 08/18/16 05:21 08/17/16 08/18/16 08/18/16 17:52 00:41 04:51 WBC 10.2 11.3 H RBC 3.14 L 3.03 L Hgb 8.9 L 8.5 L Hct 28.1 L 27.0 L MCV 90 89 MCH 28.3 28.2 MCHC 31.7 L 31.7 L RDW 13.4 13.6 Plt Count 138 L 156 Seg Neutrophils % Lymphocytes % Monocytes % Eosinophils % Basophils % Absolute Neutrophils Absolute Lymphocytes Absolute Monocytes Absolute Eosinophils Absolute Basophils Carbonic Acid HCO3/H2CO3 Ratio ABG pH ABG pCO2 ABG pO2 ABG HCO3 ABG O2 Saturation ABG Base Excess FiO2 Sodium Potassium Chloride Carbon Dioxide Anion Gap BUN Creatinine Est GFR ( Amer) Est GFR (Non-Af Amer) Glucose Calcium Phosphorus Magnesium Urine Color YELLOW Urine Appearance CLOUDY Urine pH 5.0 Ur Specific [place] 1.008 Urine Protein 100 H Urine Glucose (UA) 50 H Urine Ketones NEGATIVE Urine Blood MODERATE H Urine Nitrite NEGATIVE Ur Leukocyte Esterase NEGATIVE Urine WBC (Auto) 11 Urine RBC (Auto) 2 08/18/16 08/18/16 08/18/16 05:21 05:21 06:30 WBC 11.6 H RBC 2.97 L Hgb 8.4 L Hct 26.3 L MCV 89 MCH 28.3 MCHC 32.0 RDW 13.8 Plt Count 150 Seg Neutrophils % 62.1 Lymphocytes % 18.1 Monocytes % 18.1 H Eosinophils % 1.5 Basophils % 0.2 Absolute Neutrophils 7.2 Absolute Lymphocytes 2.1 Absolute Monocytes 2.1 H Absolute Eosinophils 0.2 Absolute Basophils 0.0 Carbonic Acid 1.60 H HCO3/H2CO3 Ratio 14:1 ABG pH 7.25 L ABG pCO2 53.1 H ABG pO2 106.3 H ABG HCO3 22.8 ABG O2 Saturation 97.0 ABG Base Excess -4.5 FiO2 35% Sodium 134.7 L Potassium 4.8 Chloride 102 Carbon Dioxide 22 Anion Gap 11 BUN 57 H Creatinine 4.62 H Est GFR ( Amer) 15 L Est GFR (Non-Af Amer) 13 L Glucose 110 Calcium 7.8 L Phosphorus 5.5 H Magnesium 2.0 Urine Color Urine Appearance Urine pH Ur Specific [place] Urine Protein Urine Glucose (UA) Urine Ketones Urine Blood Urine Nitrite Ur Leukocyte Esterase Urine WBC (Auto) Urine RBC (Auto) 08/18/16 12:21 WBC 10.3 RBC 2.97 L Hgb 8.4 L Hct 26.5 L MCV 89 MCH 28.3 MCHC 31.8 L RDW 13.9 Plt Count 159 Seg Neutrophils % Lymphocytes % Monocytes % Eosinophils % Basophils % Absolute Neutrophils Absolute Lymphocytes Absolute Monocytes Absolute Eosinophils Absolute Basophils Carbonic Acid HCO3/H2CO3 Ratio ABG pH ABG pCO2 ABG pO2 ABG HCO3 ABG O2 Saturation ABG Base Excess FiO2 Sodium Potassium Chloride Carbon Dioxide Anion Gap BUN Creatinine Est GFR ( Amer) Est GFR (Non-Af Amer) Glucose Calcium Phosphorus Magnesium Urine Color Urine Appearance Urine pH Ur Specific [place] Urine Protein Urine Glucose (UA) Urine Ketones Urine Blood Urine Nitrite Ur Leukocyte Esterase Urine WBC (Auto) Urine RBC (Auto) 08/14/16 08/14/16 08/14/16 15:52 15:52 21:57 Creatine Kinase 96 99 CK-MB (CK-2) 0.49 Troponin I < 0.012 NT-Pro-B Natriuret Pep 08/14/16 08/15/16 08/15/16 21:57 03:57 03:57 Creatine Kinase 85 CK-MB (CK-2) 0.61 0.43 Troponin I < 0.012 < 0.012 NT-Pro-B Natriuret Pep 08/15/16 03:57 Creatine Kinase CK-MB (CK-2) Troponin I NT-Pro-B Natriuret Pep 282 Impressions: Knee X-Ray 08/14/16 11:36 IMPRESSION: SATISFACTORY POSTOPERATIVE RIGHT KNEE. Renal Ultrasound 08/17/16 00:00 IMPRESSION: No hydronephrosis. Chest X-Ray 08/18/16 07:00 IMPRESSION: NO ACUTE RADIOGRAPHIC FINDING IN THE CHEST. Assessment & Plan - Diagnosis (1) Acute renal failure (ARF) Is this a current diagnosis for this admission?: YesPlan: This could be due to prerenal factors including poor oral intake for the last 48 hours complicated by hypoxia, episode of bradycardia, diuretics and nonsteroidal anti-inflammatory agents. Patient is presumably nonoliguric although we cannot quantify urine output since he does not have any Card catheter. Patient also has some electrolyte abnormalities including mild hyponatremia, mild hyperkalemia, mild hypocalcemia and very mild starting metabolic acidosis. All of this could be a consequence of volume depletion and acute renal failure. He is urinalysis showed some moderate blood and small amount of protein with minimal amount of red blood cells only. This does not really signify any acute glomerular disease. His fractional excretion of sodium is less than 1 consistent with prerenal etiology. These urine eosinophils is negative Continue current IV fluids. Monitor kidney function and electrolytes and correct will replace as necessary. Patient at this time does not need any renal replacement therapy but he is closer monitoring. (2) Acute prerenal azotemia Is this a current diagnosis for this admission?: Yes (3) Acute and chronic respiratory failure Qualifiers: Respiratory failure complication: hypoxia and hypercapnia Qualified Code(s): J96.21 - Acute and chronic respiratory failure with hypoxia Is this a current diagnosis for this admission?: Yes (4) Diabetes mellitus type 2 in obese Is this a current diagnosis for this admission?: Yes (5) Essential hypertension Is this a current diagnosis for this admission?: Yes (6) Obesity hypoventilation syndrome Is this a current diagnosis for this admission?: Yes (7) Obstructive sleep apnea Is this a current diagnosis for this admission?: Yes - Time Time with patient: 15-25 minutes
[2016-08-18] MEDS: ASPIRIN 81 MG TABLET, CHEWABLE PO SCH (17:27)
[2016-08-18] MEDS: CITALOPRAM HYDROBROMIDE 20 MG TABLET PO SCH (17:27)
--- NOTE | 2016-08-18 21:33 | PROGRESS NOTE E ---
Progress Note NAME: RAJAT DANIEL : 1950 AGE: 66Y DATE: 08/18/2016 ROOM: 426 SUBJECTIVE: Note that the patient is more awake and alert. He denies any chest pain or discomfort. He has orthopnea and he also has some mild leg edema. He denies any palpitations. He is in sinus rhythm. He denies any PND. There is no chest pain or discomfort. There is no TIA or CVA symptoms. Note that the patient is wearing BiPAP every now and then and also BiPAP at night for obstructive sleep apnea. OBJECTIVE: GENERAL: The patient is moderately obese, well groomed in no acute distress. On examination, the patient is awake and alert. VITAL SIGNS: He is afebrile with a temperature of 98.9 degrees Fahrenheit, pulse of 78 beats per minute, blood pressure is 136/72, respirations are 18 per minute, O2 sats are 94% on BiPAP with 02 flow of 10 L/min and FiO2 of 40%. HEENT: Head is atraumatic and normocephalic. Eyes: Pupils are equal, round, and reactive to light and accommodation. Extraocular movements are normal. There is no conjunctival pallor. There is no scleral icterus. ENT is negative. NECK: Supple without lymphadenopathy. Trachea is central. There is no cervical or axillary lymphadenopathy. Carotids are 2+ without any bruits. JVD is within normal limits. LUNGS: Show no accessory muscles of respiration used. Breath sounds are clear to auscultation and percussion with no rhonchi, rales or wheezing. HEART: S1 and S2 are heard. There is no S3 gallop. There is no S4 gallop. There is a systolic murmur in the left sternal border and apex. There is no rub. ABDOMEN: Soft, obese, nontender. There is no hepatosplenomegaly. EXTREMITIES: Femorals are diminished. Pedal pulses are mildly diminished. There are no femoral bruits. There is no DVT or cellulitis. There is no cyanosis or clubbing. There is mild pedal edema bilaterally. There is no evidence of cellulitis. CENTRAL NERVOUS SYSTEM: The patient is conscious, awake, alert and oriented x3 with no focal weakness. PSYCHIATRIC: The patient's judgment and insight are intact; his affect is normal. The patient's 24-hr intake is 3550 mL; output is 200 mL. I am not sure if this is accurate. DIAGNOSTIC DATA: The patient's white count is 10,300, hemoglobin is 8.4, hematocrit is 26.5, and platelet count is 159,000. The patient's sodium is 134.7, potassium is 4.8, chloride 102, CO2 is 22, the patient's BUN is 47, creatinine 4.62, GFR is reduced at 15 mL, which is chronic kidney disease stage 4. His glucose is 130, calcium 7.8, phosphorus 5.5, magnesium 2.0. His ABG showed pH of 7.25, PCO2 is elevated at 53.1, PO2 is high at 106.3 and this is on an FiO2 of 35% with O2 sat of 97%. Note that the patient's EKG showed sinus rhythm. There was an early RS transition; otherwise, EKG is within normal limits. IMPRESSION: 1. BRADYCARDIA MOST LIKELY SECONDARY TO SLEEP APNEA. This seems to have resolved with BiPAP. 2. CORONARY ARTERY DISEASE. The patient without any anginal symptoms. 3. ATHEROSCLEROTIC HEART DISEASE OF *------* CORONARY ARTERY WITHOUT ANGINA PECTORIS. 4. DIABETES MELLITUS TYPE 2. 5. HYPERTENSION. Blood pressure fairly well controlled. 6. OBSTRUCTIVE SLEEP APNEA. Patient on BiPAP. 7. [id number] RESPIRATORY FAILURE. The patient is hypercapnic most likely related to his sleep apnea. 8. DYSLIPIDEMIA. 9. CHRONIC KIDNEY DISEASE STAGE 4. NOTE: Dr. Aaron is following the patient for this. 10. Status post right knee surgery. The patient is recovering well. RECOMMENDATIONS: 1. Continue aspirin. 2. Continue atorvastatin. 3. Continue Coreg but watch the patient's bradycardia. 4. Continue hypoglycemic precautions as is being ordered for episodes of hypoglycemia. The patient is also on normal saline at 150 mL/hr. Would decrease this. 5. Continue Xarelto 10 mg p.o. at bedtime. Note that the patient is on DVT prophylaxis with Xeralto after his right knee surgery. 6. Note that the patient has a history of coronary artery disease and a history of stents. Would find out if the patient did have a drug-eluting stent, in which the patient should be on aspirin and Plavix for at least a year since the time of the stents. We will try to get records from [facility]. TIME SPENT: The patient is a FULL CODE. His spouse is his surrogate healthcare decision-maker. Note that this is moderate medical decision making on this case. Discussed with other caregiving providers on the case. The patient's medications have been reviewed. Dr. Benitez will follow the patient in the morning. Continue BiPAP for sleep apnea. DICTATING PHYSICIAN: LUIS MANUEL SINCLAIR M.D. [id number] PHY#: [id number] ID: [id number] JOB#: [id number] ACCT: [id number] cc: >
[2016-08-18] MEDS: RIVAROXABAN 10 MG TABLET PO SCH (21:50)
[2016-08-18] MEDS: ATORVASTATIN CALCIUM 20 MG TABLET PO SCH (21:50)
[2016-08-19] MEDS: IPRATROPIUM/ALBUTEROL 0.5-2.5 MG/3 ML AMPUL NEB SCH ×4 (02:19→20:38)
[2016-08-19 05:21] LABS: ANION GAP 8 (5-19); BLOOD UREA NITROGEN 53 mg/dL (7-20); CALCIUM 8.1 mg/dL (8.4-10.2); CARBON DIOXIDE 23 mmol/L (22-30); CHLORIDE 108 mmol/L (98-107); CREATININE RESULT 2.59 mg/dL (0.52-1.25); GLUCOSE 181 mg/dL (75-110); POTASSIUM 4.8 mmol/L (3.6-5.0); SODIUM 139.2 mmol/L (137-145)
[2016-08-19] MEDS: LANSOPRAZOLE 30 MG TAB.RAP.DR PO SCH (05:23)
[2016-08-19 06:09] LABS: HEMATOCRIT 26.5 % (37.9-51.0); HEMOGLOBIN 8.4 g/dL (13.5-17.0); HGB HCT DIFFERENCE -1.3; MEAN CORPUSCULAR HEMOGLOBIN 27.9 pg (27.0-33.4); MEAN CORPUSCULAR HGB CONC 31.6 g/dL (32.0-36.0); MEAN CORPUSCULAR VOLUME 88 fl (80-97); RED BLOOD COUNT 3.01 10^6/uL (4.35-5.55); RED CELL DISTRIBUTION WIDTH 13.9 % (11.5-14.0)
[2016-08-19 06:31] LABS: BASOPHILS % (MANUAL) 1 % (0-2); EOSINOPHILS % (MANUAL) 1 % (0-6); LYMPHOCYTES % (MANUAL) 11 % (13-45); TOTAL CELLS COUNTED 100
[2016-08-19 06:32] LABS: RBC MORPHOLOGY COMMENT NORMO-CYTIC/CHROMIC
--- NOTE | 2016-08-19 06:44 | PDOC PROGRESS REPORT ---
Subjective Progress Note for:: 08/19/16 Subjective:: Patient is awake, alert, and appropriate. Physical Exam Vital Signs: Temp Pulse Resp BP Pulse Ox 36.4 C 72 20 148/72 H 100 08/19/16 04:00 08/19/16 04:00 08/19/16 04:00 08/19/16 04:00 08/19/16 04:00 Pulse Oximeter Continuous Start: 08/14/16 14: 37 Freq: Status: Complete Document 08/14/16 14:37 [facility] (Rec: 08/14/16 14:38 [facility] [email or web address]) Pulse Oximetry Assessment Oxygen Saturation (92-100) 97 Oxygen Delivery Method Bi-pap Fraction of Inspired Oxygen (FIO2) 21 Equipment Usage Initial Set Up Continuous Pulse Oximeter 24 Hour Charge Charge Now Continuous SpO2 Machine # [id number] Pulse Oximeter Continuous Start: 08/14/16 15: 12 Freq: RTQ4 Status: Complete Document 08/15/16 21:50 [facility] (Rec: 08/15/16 22:35 [facility] [email or web address]_) Pulse Oximetry Assessment Equipment Usage Equipment Discontinued Continuous SpO2 Machine # [id number] Intake & Output 08/17/16 08/18/16 08/19/16 06:59 06:59 06:59 Intake Total 690 3550 4060 Output Total 200 730 Balance 690 3350 3330 General appearance: PRESENT: no acute distress Head exam: PRESENT: normocephalic Respiratory exam: PRESENT: unlabored Cardiovascular exam: PRESENT: RRR Pulses: PRESENT: +1 pedal pulses bilateral GI/Abdominal exam: PRESENT: soft Rectal exam: PRESENT: deferred Extremities exam: PRESENT: other - Right lower extremity picot dressing is clean dry and intact. Pedal edema. Distal neurovascular examination is intact. Neurological exam: PRESENT: alert, awake, oriented to person, oriented to place , oriented to time, oriented to situation. ABSENT: motor sensory deficit Psychiatric exam: PRESENT: appropriate affect, normal mood. ABSENT: homicidal ideation, suicidal ideation Skin exam: PRESENT: dry, intact, warm. ABSENT: cyanosis, rash Results Laboratory Results: 08/19/16 04:49 08/19/16 04:49 08/18/16 08/18/16 08/19/16 06:30 12:21 04:49 WBC 10.3 10.0 RBC 2.97 L 3.01 L Hgb 8.4 L 8.4 L Hct 26.5 L 26.5 L MCV 89 88 MCH 28.3 27.9 MCHC 31.8 L 31.6 L RDW 13.9 13.9 Plt Count 159 165 Seg Neutrophils % Not Reportable Lymphocytes % Not Reportable Monocytes % Not Reportable Eosinophils % Not Reportable Basophils % Not Reportable Absolute Neutrophils Not Reportable Absolute Lymphocytes Not Reportable Absolute Monocytes Not Reportable Absolute Eosinophils Not Reportable Absolute Basophils Not Reportable Carbonic Acid 1.60 H HCO3/H2CO3 Ratio 14:1 ABG pH 7.25 L ABG pCO2 53.1 H ABG pO2 106.3 H ABG HCO3 22.8 ABG O2 Saturation 97.0 ABG Base Excess -4.5 FiO2 35% Sodium Potassium Chloride Carbon Dioxide Anion Gap BUN Creatinine Est GFR ( Amer) Est GFR (Non-Af Amer) Glucose Calcium 08/19/16 04:49 WBC RBC Hgb Hct MCV MCH MCHC RDW Plt Count Seg Neutrophils % Lymphocytes % Monocytes % Eosinophils % Basophils % Absolute Neutrophils Absolute Lymphocytes Absolute Monocytes Absolute Eosinophils Absolute Basophils Carbonic Acid HCO3/H2CO3 Ratio ABG pH ABG pCO2 ABG pO2 ABG HCO3 ABG O2 Saturation ABG Base Excess FiO2 Sodium 139.2 Potassium 4.8 Chloride 108 H Carbon Dioxide 23 Anion Gap 8 BUN 53 H Creatinine 2.59 H Est GFR ( Amer) 30 L Est GFR (Non-Af Amer) 25 L Glucose 181 H Calcium 8.1 L 08/14/16 08/14/16 08/14/16 15:52 15:52 21:57 Creatine Kinase 96 99 CK-MB (CK-2) 0.49 Troponin I < 0.012 NT-Pro-B Natriuret Pep 08/14/16 08/15/16 08/15/16 21:57 03:57 03:57 Creatine Kinase 85 CK-MB (CK-2) 0.61 0.43 Troponin I < 0.012 < 0.012 NT-Pro-B Natriuret Pep 08/15/16 03:57 Creatine Kinase CK-MB (CK-2) Troponin I NT-Pro-B Natriuret Pep 282 Impressions: Knee X-Ray 08/14/16 11:36 IMPRESSION: SATISFACTORY POSTOPERATIVE RIGHT KNEE. Renal Ultrasound 08/17/16 00:00 IMPRESSION: No hydronephrosis. Chest X-Ray 08/18/16 07:00 IMPRESSION: NO ACUTE RADIOGRAPHIC FINDING IN THE CHEST. Status: Imported from PACS Assessment & Plan - Diagnosis (1) Arthritis of knee, right Is this a current diagnosis for this admission?: YesPlan: 66-year-old black male status post right knee arthroplasty with a postoperative course complicated presumed by overmedication and medical comorbidities. The overmedication seems to be resolving as to the acuity of his medical comorbidities. He is made minimal progress with physical therapy to date. He attributes this to the fact that nobody is gotten him up walking. Will be for an overhead trapeze to his bed today and aggressive physical therapy program. Anticipate a long-term facility on Sunday. (2) Obstructive sleep apnea Is this a current diagnosis for this admission?: Yes - Time Time Spent with patient: 15-24 minutes Anticipated discharge: SNF Within: within 48 hours
[2016-08-19] MEDS: POTASSIUM CHLORIDE 10 MEQ TABLET.SA PO SCH (08:39)
[2016-08-19] MEDS: CITALOPRAM HYDROBROMIDE 20 MG TABLET PO SCH (08:40)
--- NOTE | 2016-08-19 10:36 | PDOC PROGRESS REPORT ---
Subjective Progress Note for:: 08/19/16 Subjective:: Denies any complaints Physical Exam Vital Signs: Temp Pulse Resp BP Pulse Ox 98.6 F 66 16 142/78 H 99 08/19/16 07:34 08/19/16 09:30 08/19/16 09:30 08/19/16 07:34 08/19/16 09:30 Pulse Oximeter Continuous Start: 08/14/16 14: 37 Freq: Status: Complete Document 08/14/16 14:37 [facility] (Rec: 08/14/16 14:38 [facility] ECART_RESP_) Pulse Oximetry Assessment Oxygen Saturation (92-100) 97 Oxygen Delivery Method Bi-pap Fraction of Inspired Oxygen (FIO2) 21 Equipment Usage Initial Set Up Continuous Pulse Oximeter 24 Hour Charge Charge Now Continuous SpO2 Machine # [id number] Pulse Oximeter Continuous Start: 08/14/16 15: 12 Freq: RTQ4 Status: Complete Document 08/15/16 21:50 [facility] (Rec: 08/15/16 22:35 [facility] ECART_RESP_) Pulse Oximetry Assessment Equipment Usage Equipment Discontinued Continuous SpO2 Machine # [id number] Intake & Output 08/18/16 08/19/16 08/20/16 06:59 06:59 06:59 Intake Total 3550 4300 Output Total 200 1230 Balance 3350 3070 General appearance: PRESENT: no acute distress Eye exam: PRESENT: conjunctiva pink. ABSENT: scleral icterus Mouth exam: PRESENT: moist, tongue midline Neck exam: ABSENT: JVD Respiratory exam: PRESENT: clear to auscultation roman. ABSENT: rales, rhonchi, wheezes Cardiovascular exam: PRESENT: RRR. ABSENT: diastolic murmur, rubs, systolic murmur GI/Abdominal exam: PRESENT: normal bowel sounds, soft. ABSENT: distended, guarding, mass, organolmegaly, rebound, tenderness Extremities exam: PRESENT: other - Dressing in place on the right knee. ABSENT : calf tenderness, clubbing, pedal edema Neurological exam: PRESENT: alert, awake, oriented to person, oriented to place , oriented to time, oriented to situation, CN II-XII grossly intact. ABSENT: motor sensory deficit Psychiatric exam: PRESENT: appropriate affect Skin exam: PRESENT: other - Dressing in place on the right knee. Results Laboratory Results: 08/19/16 04:49 08/19/16 04:49 08/18/16 08/19/16 08/19/16 12:21 04:49 04:49 WBC 10.3 10.0 RBC 2.97 L 3.01 L Hgb 8.4 L 8.4 L Hct 26.5 L 26.5 L MCV 89 88 MCH 28.3 27.9 MCHC 31.8 L 31.6 L RDW 13.9 13.9 Plt Count 159 165 Seg Neutrophils % Not Reportable Lymphocytes % Not Reportable Monocytes % Not Reportable Eosinophils % Not Reportable Basophils % Not Reportable Absolute Neutrophils Not Reportable Absolute Lymphocytes Not Reportable Absolute Monocytes Not Reportable Absolute Eosinophils Not Reportable Absolute Basophils Not Reportable Sodium 139.2 Potassium 4.8 Chloride 108 H Carbon Dioxide 23 Anion Gap 8 BUN 53 H Creatinine 2.59 H Est GFR ( Amer) 30 L Est GFR (Non-Af Amer) 25 L Glucose 181 H Calcium 8.1 L 08/14/16 08/14/16 08/14/16 15:52 15:52 21:57 Creatine Kinase 96 99 CK-MB (CK-2) 0.49 Troponin I < 0.012 NT-Pro-B Natriuret Pep 08/14/16 08/15/16 08/15/16 21:57 03:57 03:57 Creatine Kinase 85 CK-MB (CK-2) 0.61 0.43 Troponin I < 0.012 < 0.012 NT-Pro-B Natriuret Pep 08/15/16 03:57 Creatine Kinase CK-MB (CK-2) Troponin I NT-Pro-B Natriuret Pep 282 Impressions: Knee X-Ray 08/14/16 11:36 IMPRESSION: SATISFACTORY POSTOPERATIVE RIGHT KNEE. Renal Ultrasound 08/17/16 00:00 IMPRESSION: No hydronephrosis. Chest X-Ray 08/18/16 07:00 IMPRESSION: NO ACUTE RADIOGRAPHIC FINDING IN THE CHEST. Assessment & Plan - Diagnosis (1) Acute and chronic respiratory failure Qualifiers: Respiratory failure complication: hypoxia and hypercapnia Qualified Code(s): J96.21 - Acute and chronic respiratory failure with hypoxia Is this a current diagnosis for this admission?: YesPlan: Likely secondary to obstructive sleep apnea made worse by the narcotics. Continues to improve from a respiratory standpoint (2) Obstructive sleep apnea Is this a current diagnosis for this admission?: YesPlan: Continue with BiPAP (3) Bradycardia Is this a current diagnosis for this admission?: YesPlan: Likely secondary to hypoxia (4) Coronary artery disease Qualifiers: Coronary Disease-Associated Artery/Lesion type: [place] artery [place] vs. transplanted heart: [place] heart Associated angina: angina presence unspecified Qualified Code(s): I25.10 - Atherosclerotic heart disease of [place] coronary artery without angina pectoris Is this a current diagnosis for this admission?: YesPlan: Denies any chest pain (5) Diabetes mellitus type 2 in obese Is this a current diagnosis for this admission?: YesPlan: Continue with sliding scale insulin. (6) Essential hypertension Is this a current diagnosis for this admission?: Yes (7) PTSD (post-traumatic stress disorder) Is this a current diagnosis for this admission?: Yes (8) BPH (benign prostatic hyperplasia) Qualifiers: Lower urinary tract symptom presence: presence of symptoms unspecified Qualified Code(s): N40.0 - Benign prostatic hyperplasia without lower urinary tract symptoms Is this a current diagnosis for this admission?: Yes (9) Acute renal failure (ARF) Is this a current diagnosis for this admission?: YesPlan: Most likely secondary to prerenal causes and will continue the IV fluids. The patient's creatinine has improved overnight. We will continue to monitor. - Time Time Spent with patient: 25-34 minutes - Inpatient Certification Medical Necessity: Need Close Monitoring Due to Risk of Patient Decompensation, Need For IV Fluids - Plan Summary Plan Summary: It should be stable for discharge on Sunday.
[2016-08-19] MEDS: PREGABALIN 75 MG CAPSULE PO SCH ×2 (11:56→22:55)
[2016-08-19] MEDS: INSULIN REG, HUMAN 100 UNIT/ML 3 ML VIAL (PYX) SUBCUT PRN ×2 (11:56→22:54)
[2016-08-19] MEDS: ASPIRIN 81 MG TABLET, CHEWABLE PO SCH (11:56)
[2016-08-19] MEDS: PRENATAL VITAMIN W-O CA NO5/FE FUMARATE/FA CAPSULE PO SCH (11:56)
[2016-08-19] MEDS: SENNOSIDES/DOCUSATE 8.6-50 MG 1 EACH TABLET PO SCH ×2 (11:56→18:36)
[2016-08-19] MEDS: CARVEDILOL 12.5 MG TABLET PO SCH ×2 (11:56→22:55)
[2016-08-19] MEDS: NORMAL SALINE 1000 ML 1,000 ML IV PRN ×2 (13:05→23:29)
--- NOTE | 2016-08-19 16:25 | PDOC PROGRESS REPORT ---
Subjective Progress Note for:: 08/19/16 Subjective:: Patient seems to be doing somewhat better with improvement in mental status per . It seems patient mental status changes may be related to CO2 retention as it tends to get better with bilevel therapy.. On direct questioning denying any chest arm or neck discomfort. Patient denying any PND, orthopnea. Patient denied any sustained palpitations, dizziness, syncope, near syncope. Patient denying any fever chills. Patient denying any other significant discomfort. Patient is currently on oxygen via nasal cannula. Review of systems: Rest review of systems negative but was very limited. Medications: Medications have been reviewed. Physical Exam Vital Signs: Temp Pulse Resp BP Pulse Ox 98.2 F 76 19 165/93 H 100 08/19/16 15:08 08/19/16 15:08 08/19/16 15:08 08/19/16 15:08 08/19/16 15:08 Pulse Oximeter Continuous Start: 08/14/16 14: 37 Freq: Status: Complete Document 08/14/16 14:37 [facility] (Rec: 08/14/16 14:38 [facility] [email or web address]) Pulse Oximetry Assessment Oxygen Saturation (92-100) 97 Oxygen Delivery Method Bi-pap Fraction of Inspired Oxygen (FIO2) 21 Equipment Usage Initial Set Up Continuous Pulse Oximeter 24 Hour Charge Charge Now Continuous SpO2 Machine # [id number] Pulse Oximeter Continuous Start: 08/14/16 15: 12 Freq: RTQ4 Status: Complete Document 08/15/16 21:50 [facility] (Rec: 08/15/16 22:35 [facility] ECART_RESP_) Pulse Oximetry Assessment Equipment Usage Equipment Discontinued Continuous SpO2 Machine # [id number] Intake & Output 08/18/16 08/19/16 08/20/16 06:59 06:59 06:59 Intake Total 3550 4300 480 Output Total 200 1230 550 Balance 3350 3070 -70 Exam: GENERAL: well-nourished and in no acute distress. Alert and oriented x3 HEAD: Atraumatic, normocephalic. EYES: Pupils equal round and reactive to light, extraocular movements intact, sclera anicteric, conjunctiva are normal. ENT: TMs normal, nares patent, oropharynx clear without exudates. Moist mucous membranes. No oral ulcerations or bleeding gums noted NECK: supple without lymphadenopathy. Trachea is central. No cervical or axillary lymphadenopathy noted. Carotids are 2+, JVD borderline elevated LUNGS: Respiration seems nonlabored, no significant accessory muscle action noted. Breath sounds clear to auscultation bilaterally and equal noted. No wheezes rales or rhonchi noted. No significant dullness noted on percussion. CHEST: Palpation of the chest wall shows no significant chest wall tenderness. No other significant abnormalities noted. HEART: [place] [employer], No PSH, 1/6 [place] aortic area, 1/6 [place] systolic murmur mitral area, no rubs, no gallops. ABDOMEN: Soft, no significant tenderness appreciated, normoactive bowel sounds. No guarding, no rebound. No rigidity noted . No masses appreciated. EXTREMITIES: Pedal pulses are 1-2+, no calf tenderness noted. No clubbing or cyanosis. 1+ pedal edema noted NEUROLOGICAL: Focused neurological exam showed no significant neurologic deficit. Normal speech, no focal weakness appreciated. PSYCH: Normal mood, normal affect. Judgment and insight within normal limits. SKIN: No significant ecchymosis, rash, ulcerations or signs of pruritus noted. MUSCULOSKELETAL EXAM: No significant joint swelling noted. Results Laboratory Results: 08/19/16 04:49 08/19/16 04:49 08/19/16 08/19/16 04:49 04:49 WBC 10.0 RBC 3.01 L Hgb 8.4 L Hct 26.5 L MCV 88 MCH 27.9 MCHC 31.6 L RDW 13.9 Plt Count 165 Seg Neutrophils % Not Reportable Lymphocytes % Not Reportable Monocytes % Not Reportable Eosinophils % Not Reportable Basophils % Not Reportable Absolute Neutrophils Not Reportable Absolute Lymphocytes Not Reportable Absolute Monocytes Not Reportable Absolute Eosinophils Not Reportable Absolute Basophils Not Reportable Sodium 139.2 Potassium 4.8 Chloride 108 H Carbon Dioxide 23 Anion Gap 8 BUN 53 H Creatinine 2.59 H Est GFR ( Amer) 30 L Est GFR (Non-Af Amer) 25 L Glucose 181 H Calcium 8.1 L 08/14/16 08/14/16 08/14/16 15:52 15:52 21:57 Creatine Kinase 96 99 CK-MB (CK-2) 0.49 Troponin I < 0.012 NT-Pro-B Natriuret Pep 08/14/16 08/15/16 08/15/16 21:57 03:57 03:57 Creatine Kinase 85 CK-MB (CK-2) 0.61 0.43 Troponin I < 0.012 < 0.012 NT-Pro-B Natriuret Pep 08/15/16 03:57 Creatine Kinase CK-MB (CK-2) Troponin I NT-Pro-B Natriuret Pep 282 Impressions: Knee X-Ray 08/14/16 11:36 IMPRESSION: SATISFACTORY POSTOPERATIVE RIGHT KNEE. Renal Ultrasound 08/17/16 00:00 IMPRESSION: No hydronephrosis. Chest X-Ray 08/18/16 07:00 IMPRESSION: NO ACUTE RADIOGRAPHIC FINDING IN THE CHEST. Assessment & Plan - Diagnosis (1) Bradycardia Is this a current diagnosis for this admission?: Yes (2) Abnormal EKG Is this a current diagnosis for this admission?: Yes (3) Coronary artery disease Qualifiers: Coronary Disease-Associated Artery/Lesion type: [place] artery [place] vs. transplanted heart: [place] heart Associated angina: angina presence unspecified Qualified Code(s): I25.10 - Atherosclerotic heart disease of [place] coronary artery without angina pectoris Is this a current diagnosis for this admission?: Yes (4) Diabetes mellitus type 2 in obese Is this a current diagnosis for this admission?: Yes (5) Essential hypertension Is this a current diagnosis for this admission?: Yes (6) Obstructive sleep apnea Is this a current diagnosis for this admission?: Yes (7) Acute and chronic respiratory failure Qualifiers: Respiratory failure complication: hypoxia and hypercapnia Qualified Code(s): J96.21 - Acute and chronic respiratory failure with hypoxia Is this a current diagnosis for this admission?: Yes (8) Abnormal electrocardiogram Is this a current diagnosis for this admission?: Yes (9) Dyslipidemia Is this a current diagnosis for this admission?: Yes - Notes Notes: electronic device monitor, this was reviewed. Twelve-lead EKG, these were reviewed. EKG from yesterday showed heart rate of 78. No acute ST segment changes noted. Chest x-ray: Results reviewed. Shows mild cardiomegaly but lung eduardo are clear no evidence of CHF. Medications: These were reviewed. Labs: These were reviewed. Treatment/care plan: This was reviewed and discussed with involved personnel in the care of this patient and patient. Bradycardia: Currently stable and improved. Continue to monitor patient. Acute on chronic respiratory failure: Patient has history of COPD and also sleep apnea. This has improved. Patient to use noninvasive positive pressure ventilation on a regular nightly and intermittent basis during the day. Hypertension: Currently stable. Continue monitoring. Blood pressure goal is 140/90 or less. After 2D echo of goal of blood pressure. Dyslipidemia: Continue with statin therapy. CAD: Currently clinically stable without any chest pain or any significant EKG. Continue to follow with risk factor modification and medical management. Patient previous stent was approximately 4 years ago by his 's report therefore Plavix is not really needed and seems patient is not on it currently. Patient evaluated by both carbonizer tester and technical rep. - Time Time with patient: Greater than 35 minutes - CODE STATUS was discussed, patient remains full code. Surrogate decision-maker unchanged. Multiple medical problems were addressed. More than 50% of the time spent coordinating care, discussing management plans with involved caregivers. Management plans discussed with involved personnels. Medical decision making was of moderate to high complexity, patient's has multiple comorbidities. Medications reviewed and adjusted accordingly: Yes
--- NOTE | 2016-08-19 17:39 | EKG REPORT ---
SEVERITY:- NORMAL ECG - SINUS RHYTHM : Confirmed by: Amadeo Benitez 19-Aug-2016 17:38:30
[2016-08-19] MEDS: ATORVASTATIN CALCIUM 20 MG TABLET PO SCH (22:54)
[2016-08-19] MEDS: RIVAROXABAN 10 MG TABLET PO SCH (22:55)
[2016-08-20] MEDS: IPRATROPIUM/ALBUTEROL 0.5-2.5 MG/3 ML AMPUL NEB SCH ×4 (02:18→20:08)
[2016-08-20 04:55] LABS: ABSOLUTE EOSINOPHILS # (AUTO) 0.2 10^3/uL (0.0-0.6); ABSOLUTE LYMPHOCYTES (AUTO) 2.1 10^3/uL (0.5-4.7); ABSOLUTE NEUT (AUTO) 6.1 10^3/uL (1.7-8.2); BASOPHILS % (AUTO) 0.3 % (0-2); HEMATOCRIT 26.1 % (37.9-51.0); HEMOGLOBIN 8.2 g/dL (13.5-17.0); HGB HCT DIFFERENCE -1.5; LYMPHOCYTES % (AUTO) 20.4 % (13-45); MEAN CORPUSCULAR HEMOGLOBIN 27.8 pg (27.0-33.4); MEAN CORPUSCULAR HGB CONC 31.6 g/dL (32.0-36.0); MEAN CORPUSCULAR VOLUME 88 fl (80-97); MONOCYTES % (AUTO) 19.4 % (3-13); RED BLOOD COUNT 2.96 10^6/uL (4.35-5.55); RED CELL DISTRIBUTION WIDTH 13.5 % (11.5-14.0); SEGMENTED NEUTROPHILS % (AUTO) 57.9 % (42-78); WHITE BLOOD COUNT 10.5 10^3/uL (4.0-10.5)
[2016-08-20 05:13] LABS: ANION GAP 6 (5-19); BLOOD UREA NITROGEN 35 mg/dL (7-20); CALCIUM 8.3 mg/dL (8.4-10.2); CARBON DIOXIDE 23 mmol/L (22-30); CHLORIDE 110 mmol/L (98-107); CREATININE RESULT 1.59 mg/dL (0.52-1.25); GLUCOSE 172 mg/dL (75-110); POTASSIUM 4.8 mmol/L (3.6-5.0); SODIUM 138.8 mmol/L (137-145)
[2016-08-20] MEDS: LANSOPRAZOLE 30 MG TAB.RAP.DR PO SCH (05:58)
[2016-08-20] MEDS: CITALOPRAM HYDROBROMIDE 20 MG TABLET PO SCH (07:38)
[2016-08-20] MEDS: POTASSIUM CHLORIDE 10 MEQ TABLET.SA PO SCH (07:38)
[2016-08-20] MEDS: PRENATAL VITAMIN W-O CA NO5/FE FUMARATE/FA CAPSULE PO SCH (09:33)
[2016-08-20] MEDS: NORMAL SALINE 1000 ML 1,000 ML IV PRN ×2 (09:33→17:47)
[2016-08-20] MEDS: SENNOSIDES/DOCUSATE 8.6-50 MG 1 EACH TABLET PO SCH ×2 (09:34→17:48)
[2016-08-20] MEDS: CARVEDILOL 12.5 MG TABLET PO SCH ×2 (09:34→22:08)
[2016-08-20] MEDS: PREGABALIN 75 MG CAPSULE PO SCH ×2 (09:34→22:08)
[2016-08-20] MEDS: ASPIRIN 81 MG TABLET, CHEWABLE PO SCH (09:34)
--- NOTE | 2016-08-20 09:39 | EKG REPORT ---
SEVERITY:- NORMAL ECG - SINUS RHYTHM : Confirmed by: Amadeo Benitez 20-Aug-2016 09:38:55
--- NOTE | 2016-08-20 11:01 | PDOC PROGRESS REPORT ---
Subjective Progress Note for:: 08/20/16 Subjective:: Denies any complaints Physical Exam Vital Signs: Temp Pulse Resp BP Pulse Ox 98.6 F 71 16 155/79 H 100 08/20/16 07:34 08/20/16 09:19 08/20/16 09:19 08/20/16 07:34 08/20/16 09:19 Pulse Oximeter Continuous Start: 08/14/16 14: 37 Freq: Status: Complete Document 08/14/16 14:37 [facility] (Rec: 08/14/16 14:38 [facility] ECART_RESP_) Pulse Oximetry Assessment Oxygen Saturation (92-100) 97 Oxygen Delivery Method Bi-pap Fraction of Inspired Oxygen (FIO2) 21 Equipment Usage Initial Set Up Continuous Pulse Oximeter 24 Hour Charge Charge Now Continuous SpO2 Machine # [id number] Pulse Oximeter Continuous Start: 08/14/16 15: 12 Freq: RTQ4 Status: Complete Document 08/15/16 21:50 [facility] (Rec: 08/15/16 22:35 [facility] ECART_RESP_) Pulse Oximetry Assessment Equipment Usage Equipment Discontinued Continuous SpO2 Machine # [id number] Intake & Output 08/19/16 08/20/16 08/21/16 06:59 06:59 06:59 Intake Total 4300 4636 Output Total 1230 775 Balance 3070 3861 Weight 145.1 kg General appearance: PRESENT: no acute distress Eye exam: PRESENT: conjunctiva pink. ABSENT: scleral icterus Mouth exam: PRESENT: moist, tongue midline Neck exam: ABSENT: JVD Respiratory exam: PRESENT: clear to auscultation roman. ABSENT: rales, rhonchi, wheezes Cardiovascular exam: PRESENT: RRR. ABSENT: diastolic murmur, rubs, systolic murmur GI/Abdominal exam: PRESENT: normal bowel sounds, soft. ABSENT: distended, guarding, mass, organolmegaly, rebound, tenderness Extremities exam: PRESENT: other - Dressing in place on the right knee. ABSENT : calf tenderness, clubbing, pedal edema Neurological exam: PRESENT: alert, awake, oriented to person, oriented to place , oriented to time, oriented to situation, CN II-XII grossly intact. ABSENT: motor sensory deficit Psychiatric exam: PRESENT: appropriate affect Skin exam: PRESENT: dry, intact, warm, other - Dressing in place on the right knee. ABSENT: cyanosis, rash Results Laboratory Results: 08/20/16 04:28 08/20/16 04:28 08/20/16 08/20/16 04:28 04:28 WBC 10.5 RBC 2.96 L Hgb 8.2 L Hct 26.1 L MCV 88 MCH 27.8 MCHC 31.6 L RDW 13.5 Plt Count 168 Seg Neutrophils % 57.9 Lymphocytes % 20.4 Monocytes % 19.4 H Eosinophils % 2.0 Basophils % 0.3 Absolute Neutrophils 6.1 Absolute Lymphocytes 2.1 Absolute Monocytes 2.0 H Absolute Eosinophils 0.2 Absolute Basophils 0.0 Sodium 138.8 Potassium 4.8 Chloride 110 H Carbon Dioxide 23 Anion Gap 6 BUN 35 H Creatinine 1.59 H Est GFR ( Amer) 53 L Est GFR (Non-Af Amer) 44 L Glucose 172 H Calcium 8.3 L 08/14/16 08/14/16 08/14/16 15:52 15:52 21:57 Creatine Kinase 96 99 CK-MB (CK-2) 0.49 Troponin I < 0.012 NT-Pro-B Natriuret Pep 08/14/16 08/15/16 08/15/16 21:57 03:57 03:57 Creatine Kinase 85 CK-MB (CK-2) 0.61 0.43 Troponin I < 0.012 < 0.012 NT-Pro-B Natriuret Pep 08/15/16 03:57 Creatine Kinase CK-MB (CK-2) Troponin I NT-Pro-B Natriuret Pep 282 Impressions: Knee X-Ray 08/14/16 11:36 IMPRESSION: SATISFACTORY POSTOPERATIVE RIGHT KNEE. Renal Ultrasound 08/17/16 00:00 IMPRESSION: No hydronephrosis. Chest X-Ray 08/18/16 07:00 IMPRESSION: NO ACUTE RADIOGRAPHIC FINDING IN THE CHEST. Assessment & Plan - Diagnosis (1) Acute and chronic respiratory failure Qualifiers: Respiratory failure complication: hypoxia and hypercapnia Qualified Code(s): J96.21 - Acute and chronic respiratory failure with hypoxia Is this a current diagnosis for this admission?: YesPlan: Likely secondary to obstructive sleep apnea made worse by the narcotics. Continues to improve from a respiratory standpoint (2) Obstructive sleep apnea Is this a current diagnosis for this admission?: YesPlan: Continue with BiPAP (3) Bradycardia Is this a current diagnosis for this admission?: YesPlan: Likely secondary to hypoxia (4) Coronary artery disease Qualifiers: Coronary Disease-Associated Artery/Lesion type: tribal artery [place] vs. transplanted heart: tribal heart Associated angina: angina presence unspecified Qualified Code(s): I25.10 - Atherosclerotic heart disease of tribal coronary artery without angina pectoris Is this a current diagnosis for this admission?: YesPlan: Denies any chest pain (5) Diabetes mellitus type 2 in obese Is this a current diagnosis for this admission?: YesPlan: Continue with sliding scale insulin. (6) Essential hypertension Is this a current diagnosis for this admission?: Yes (7) PTSD (post-traumatic stress disorder) Is this a current diagnosis for this admission?: Yes (8) BPH (benign prostatic hyperplasia) Qualifiers: Lower urinary tract symptom presence: presence of symptoms unspecified Qualified Code(s): N40.0 - Benign prostatic hyperplasia without lower urinary tract symptoms Is this a current diagnosis for this admission?: Yes (9) Acute renal failure (ARF) Is this a current diagnosis for this admission?: YesPlan: Most likely secondary to prerenal causes and will continue the IV fluids. The patient's creatinine continues to improve. - Time Time Spent with patient: 25-34 minutes - Plan Summary Plan Summary: Patient is stable for discharge to rehab tomorrow. Recommend that the patient continue with his CPAP or BiPAP at rehab
[2016-08-20] MEDS: ACETAMINOPHEN 325 MG TABLET PO PRN (13:55)
[2016-08-20] MEDS: INSULIN REG, HUMAN 100 UNIT/ML 3 ML VIAL (PYX) SUBCUT PRN ×2 (13:55→17:48)
--- NOTE | 2016-08-20 16:43 | PROGRESS NOTE E ---
Progress Note NAME: RAJAT DANIEL : 1950 AGE: 66Y DATE: 08/20/2016 ROOM: 426 SUBJECTIVE: The patient is awake and alert, denies any chest pain or discomfort. There is no orthopnea. He does wear BiPAP at night. He denies any PND. There is trace leg edema. There are no TIA or CVA symptoms. There is no chest pain or discomfort. OBJECTIVE: GENERAL: At present the patient is morbidly obese, in no acute distress. He is well groomed. VITAL SIGNS: He is afebrile with a temperature of 98.6 degrees Fahrenheit, pulse is 72 beats per minute, blood pressure 155/79, O2 sat is are 100% on 3 L nasal cannula. His respirations are 17 per minute. HEENT: Head is atraumatic and normocephalic. Eyes: Pupils are equal, round, regular, reactive to light and accommodation. Extraocular movements are normal. There is no conjunctival pallor. There is no scleral icterus. ENT is negative. NECK: Supple without lymphadenopathy. Trachea is central. There is no cervical or axillary lymphadenopathy or adenopathy. Carotids are 2+ without any bruits. JVD is within normal limits. LUNGS: Show no accessory muscles of respiration used. Breath sounds are clear to auscultation and percussion with no rhonchi, rales or wheezing. HEART: S1 and S2 are heard. There is no S3 gallop. There is no S4 gallop. There is a systolic murmur in the left sternal border and the apex. There is no rub. ABDOMEN: Soft, obese, nontender. There is no hepatosplenomegaly. EXTREMITIES: Femorals are diminished. Pedal pulses are mildly diminished. There are no femoral bruits. There is no DVT or cellulitis. There is no cyanosis or clubbing. There is trace pedal edema bilaterally. There is no evidence of cellulitis. CENTRAL NERVOUS SYSTEM: The patient is conscious, awake, alert and oriented x3 with no focal weakness. PSYCHIATRIC: The patient's judgment and insight are intact. His affect is normal. DIAGNOSTIC DATA: The patient's EKG shows sinus rhythm, within normal limits. There is early RS transition. The patient's 24-hour intake is 4636 mL; output is 775 mL. The patient's white count is 10,500, hemoglobin is 8.2, hematocrit is 26.1 and platelet count is 168,000. The patient's sodium is 133.8, potassium is 4.8, chloride is 110, CO2 is 23, the patient's BUN is 35, creatinine 1.59, GFR is reduced at 53 mL, which is chronic kidney disease stage 3A, with glucose of 172, and calcium is 8.3. IMPRESSION: 1. BRADYCARDIA MOST LIKELY SECONDARY TO SLEEP APNEA AND HYPOXEMIA AND HYPERCAPNIA. This has resolved. Note that the patient's heart rate is good even on Coreg 25 mg p.o. q.12 h. 2. CORONARY ARTERY DISEASE. The patient is without any anginal symptoms. 3. ATHEROSCLEROTIC HEART DISEASE OF [place] CORONARY ARTERIES WITHOUT ANGINA PECTORIS. 4. DIABETES MELLITUS TYPE 2. 5. HYPERTENSION. Blood pressure is still slightly on the upper side and not very well controlled. 6. OBSTRUCTIVE SLEEP APNEA. On BiPAP. 7. [id number] RESPIRATORY FAILURE. The patient is hypercapnic most likely related to sleep apnea. 8. DYSLIPIDEMIA. 9. CHRONIC KIDNEY DISEASE. At present has progressed to stage 3. Dr. Aaron is following the patient. 10. STATUS POST RIGHT KNEE SURGERY. The patient is recovering well. RECOMMENDATIONS: 1. Continue aspirin. 2. Continue Coreg. 3. Continue atorvastatin. 4. Continue hypoglycemic precautions. 5. Continue Xarelto for DVT prophylaxis after his right knee surgery. 6. Note that the patient had a PROMUS stent placed in the mid LAD some years ago at [facility]. TIME SPENT: Twenty-five minutes spent on this patient including review of the patient's medications and more than 50% of the time spent on direct patient care. The patient is a FULL CODE. His is his surrogate healthcare decision-maker. Note that the patient's bradycardia has resolved, will sign off the case. Discussed with the hospitalist taking care of the patient. DICTATING PHYSICIAN: LUIS MANUEL SINCLAIR M.D. [id number] PHY#: [id number] ID: [id number] JOB#: [id number] ACCT: [id number] cc: >
[2016-08-20] MEDS: ATORVASTATIN CALCIUM 20 MG TABLET PO SCH (22:07)
[2016-08-20] MEDS: RIVAROXABAN 10 MG TABLET PO SCH (22:08)
[2016-08-21] MEDS: IPRATROPIUM/ALBUTEROL 0.5-2.5 MG/3 ML AMPUL NEB SCH ×4 (01:47→19:45)
[2016-08-21 04:35] LABS: ABSOLUTE EOSINOPHILS # (AUTO) 0.3 10^3/uL (0.0-0.6); ABSOLUTE MONOCYTES (AUTO) 1.8 10^3/uL (0.1-1.4); ABSOLUTE NEUT (AUTO) 6.3 10^3/uL (1.7-8.2); BASOPHILS % (AUTO) 0.3 % (0-2); EOSINOPHILS % (AUTO) 2.6 % (0-6); HEMATOCRIT 26.2 % (37.9-51.0); HEMOGLOBIN 8.4 g/dL (13.5-17.0); LYMPHOCYTES % (AUTO) 19.3 % (13-45); MEAN CORPUSCULAR HEMOGLOBIN 28.4 pg (27.0-33.4); MEAN CORPUSCULAR HGB CONC 32.1 g/dL (32.0-36.0); MEAN CORPUSCULAR VOLUME 89 fl (80-97); MONOCYTES % (AUTO) 17.3 % (3-13); RED BLOOD COUNT 2.95 10^6/uL (4.35-5.55); RED CELL DISTRIBUTION WIDTH 13.4 % (11.5-14.0); SEGMENTED NEUTROPHILS % (AUTO) 60.5 % (42-78); WHITE BLOOD COUNT 10.5 10^3/uL (4.0-10.5)
[2016-08-21 04:50] LABS: ANION GAP 5 (5-19); BLOOD UREA NITROGEN 23 mg/dL (7-20); CALCIUM 8.4 mg/dL (8.4-10.2); CARBON DIOXIDE 24 mmol/L (22-30); CHLORIDE 109 mmol/L (98-107); CREATININE RESULT 1.25 mg/dL (0.52-1.25); GLUCOSE 172 mg/dL (75-110); POTASSIUM 4.9 mmol/L (3.6-5.0)
[2016-08-21] MEDS: LANSOPRAZOLE 30 MG TAB.RAP.DR PO SCH (05:56)
--- NOTE | 2016-08-21 06:40 | PDOC DISCHARGE SUMMARY ---
General - Admit/Disc Date/PCP Admission Date/Primary Care Provider: 08/14/16 08:00 BHASKAR TURPIN MD Discharge Date: 08/21/16 - Discharge Diagnosis (1) Arthritis of knee, right Is this a current diagnosis for this admission?: Yes (2) Obstructive sleep apnea Is this a current diagnosis for this admission?: Yes (3) Coronary artery disease Is this a current diagnosis for this admission?: Yes (4) Diabetes mellitus type 2 in obese Is this a current diagnosis for this admission?: Yes - Additional Information Resuscitation Status: Full Code Discharge Diet: As Tolerated, Regular Discharge Activity: Balance Activity w/Rest, No Driving, No tub bath Home Medications: Aspirin [Aspirin 81 mg Chewable Tablet] 81 mg PO DAILY 07/11/12 Citalopram Hydrobromide [Celexa 40 mg Tablet] 40 mg PO QAM 07/11/12 Atorvastatin Calcium [Lipitor 20 mg Tablet] 20 mg PO QHS 06/15/16 Carvedilol 25 mg PO BID 06/15/16 Chromium Picolinate [Chromium Picolinate 200 mcg Capsule] 1 cap PO QAM 06/15/16 Furosemide [Lasix] 20 mg PO TID 06/15/16 Insulin Glargine,Hum.rec.anlog [Lantus] 80 units SQ QHS 06/15/16 Potassium Chloride 20 meq PO QAM 06/15/16 Tramadol HCl 50 mg PO DAILY PRN 06/15/16 Vitamin B Complex 1 each PO DAILY 06/15/16 l-Carnitine Fumarate [l-Carnitine] 200 mg PO QAM 06/15/16 Hydrocodone/Acetaminophen [[place] 5-325 mg Tablet] 1 tab PO Q6HP PRN #0 tablet Rivaroxaban [Xarelto 10 mg Tablet] 10 mg PO QHS #0 tablet 08/21/16 History of Present Illness History of Present Illness: RAJAT DANIEL is a 66 year old male who presents with progressive right knee pain and functional disability secondary to knee osteoarthritis. Patient is admitted for elective right knee arthroplasty. Hospital Course Hospital Course: Patient is admitted through the operating room where he undergoes uncomplicated right knee arthroplasty. Postoperative course is notable for respiratory depression secondary to absence of the use of his CPAP machine, oversedation, progress with physical therapy. The hospitalist service, cardiology service, and the pulmonary service overall consulted during the course of his stay to optimize his care. Physical Exam Vital Signs: Temp Pulse Resp BP Pulse Ox 37.0 C 85 20 146/88 H 95 08/21/16 03:35 08/21/16 03:35 08/21/16 03:35 08/21/16 04:00 08/21/16 03:35 Pulse Oximeter Continuous Start: 08/14/16 14: 37 Freq: Status: Complete Document 08/14/16 14:37 [facility] (Rec: 08/14/16 14:38 [facility] [email or web address]) Pulse Oximetry Assessment Oxygen Saturation (92-100) 97 Oxygen Delivery Method Bi-pap Fraction of Inspired Oxygen (FIO2) 21 Equipment Usage Initial Set Up Continuous Pulse Oximeter 24 Hour Charge Charge Now Continuous SpO2 Machine # [id number] Pulse Oximeter Continuous Start: 08/14/16 15: 12 Freq: RTQ4 Status: Complete Document 08/15/16 21:[address] [facility] (Rec: 08/15/16 22:[address] [facility] ECART_RESP_) Pulse Oximetry Assessment Equipment Usage Equipment Discontinued Continuous SpO2 Machine # [id number] Intake & Output 08/19/16 08/20/16 08/21/16 06:59 06:59 06:59 Intake Total 4300 4636 2950 Output Total 4727 269 7148 Balance 3070 3861 1350 Weight 145.1 kg General appearance: PRESENT: no acute distress, obese Head exam: PRESENT: normocephalic Respiratory exam: PRESENT: unlabored Cardiovascular exam: PRESENT: RRR Pulses: PRESENT: +1 pedal pulses bilateral Vascular exam: PRESENT: normal capillary refill GI/Abdominal exam: PRESENT: soft Rectal exam: PRESENT: deferred Extremities exam: PRESENT: other - Right knee picot dressing is clean dry and intact. Minor pedal edema. There is brisk capillary refill. Motor function to the great toe flexion extension is intact to manual testing. Neurological exam: PRESENT: alert, awake, oriented to person, oriented to place , oriented to time, oriented to situation. ABSENT: motor sensory deficit Psychiatric exam: PRESENT: appropriate affect, normal mood. ABSENT: homicidal ideation, suicidal ideation Skin exam: PRESENT: dry, intact, warm. ABSENT: cyanosis, rash Results Laboratory Results: 08/21/16 04:26 08/21/16 04:26 08/21/16 08/21/16 04:26 04:26 WBC 10.5 RBC 2.95 L Hgb 8.4 L Hct 26.2 L MCV 89 MCH 28.4 MCHC 32.1 RDW 13.4 Plt Count 162 Seg Neutrophils % 60.5 Lymphocytes % 19.3 Monocytes % 17.3 H Eosinophils % 2.6 Basophils % 0.3 Absolute Neutrophils 6.3 Absolute Lymphocytes 2.0 Absolute Monocytes 1.8 H Absolute Eosinophils 0.3 Absolute Basophils 0.0 Sodium 138.0 Potassium 4.9 Chloride 109 H Carbon Dioxide 24 Anion Gap 5 BUN 23 H Creatinine 1.25 Est GFR ( Amer) > 60 Est GFR (Non-Af Amer) 58 L Glucose 172 H Calcium 8.4 08/14/16 08/14/16 08/14/16 15:52 15:52 21:57 Creatine Kinase 96 99 CK-MB (CK-2) 0.49 Troponin I < 0.012 NT-Pro-B Natriuret Pep 08/14/16 08/15/16 08/15/16 21:57 03:57 03:57 Creatine Kinase 85 CK-MB (CK-2) 0.61 0.43 Troponin I < 0.012 < 0.012 NT-Pro-B Natriuret Pep 08/15/16 03:57 Creatine Kinase CK-MB (CK-2) Troponin I NT-Pro-B Natriuret Pep 282 Impressions: Knee X-Ray 08/14/16 11:36 IMPRESSION: SATISFACTORY POSTOPERATIVE RIGHT KNEE. Renal Ultrasound 08/17/16 00:00 IMPRESSION: No hydronephrosis. Chest X-Ray 08/18/16 07:00 IMPRESSION: NO ACUTE RADIOGRAPHIC FINDING IN THE CHEST. Status: Imported from PACS Plan Discharge Plan: To be discharged to a senior living facility today. Picot dressing can be changed tomorrow and replaced with an OpSite. Follow-up will be with Dr. Myers in the [facility] for surgery in 2 weeks for staple removal.
[2016-08-21] MEDS: ONDANSETRON HCL INJ/PF 4 MG/2 ML SDV IV PRN (08:30)
[2016-08-21] MEDS ORDERED: MINERAL OIL ENEMA 133 ML PR ONE (10:00)
--- NOTE | 2016-08-21 12:29 | PDOC PROGRESS REPORT ---
Subjective Progress Note for:: 08/21/16 Subjective:: awake and alert Physical Exam Vital Signs: Temp Pulse Resp BP Pulse Ox 99.3 F 82 20 195/93 H 98 08/21/16 08:00 08/21/16 08:28 08/21/16 08:28 08/21/16 08:00 08/21/16 08:28 Pulse Oximeter Continuous Start: 08/14/16 14: 37 Freq: Status: Complete Document 08/14/16 14:37 [facility] (Rec: 08/14/16 14:38 [facility] ECART_RESP_) Pulse Oximetry Assessment Oxygen Saturation (92-100) 97 Oxygen Delivery Method Bi-pap Fraction of Inspired Oxygen (FIO2) 21 Equipment Usage Initial Set Up Continuous Pulse Oximeter 24 Hour Charge Charge Now Continuous SpO2 Machine # [id number] Pulse Oximeter Continuous Start: 08/14/16 15: 12 Freq: RTQ4 Status: Complete Document 08/15/16 21:50 [facility] (Rec: 08/15/16 22:35 [facility] ECART_RESP_) Pulse Oximetry Assessment Equipment Usage Equipment Discontinued Continuous SpO2 Machine # [id number] Intake & Output 08/20/16 08/21/16 08/22/16 06:59 06:59 06:59 Intake Total 4636 2950 Output Total 775 1600 Balance 3861 1350 Weight 145.1 kg General appearance: PRESENT: no acute distress, disheveled, morbidly obese, well -developed Head exam: PRESENT: atraumatic, normocephalic Eye exam: PRESENT: conjunctiva pale, EOMI Mouth exam: PRESENT: dry mucosa, neck supple, tongue midline Neck exam: ABSENT: carotid bruit, JVD, lymphadenopathy, thyromegaly Respiratory exam: PRESENT: decreased breath sounds, prolonged expiratory phas, rhonchi, unlabored Cardiovascular exam: PRESENT: RRR, +S1, +S2 GI/Abdominal exam: PRESENT: normal bowel sounds, soft. ABSENT: distended, guarding, mass, organolmegaly, rebound, tenderness Rectal exam: PRESENT: deferred Gentrourinary exam: PRESENT: indwelling catheter Extremities exam: PRESENT: +1 edema, other - s/p knee surgery Neurological exam: PRESENT: awake Psychiatric exam: PRESENT: flat affect Skin exam: PRESENT: dry, warm Results Laboratory Results: 08/21/16 04:26 08/21/16 04:26 08/21/16 08/21/16 04:26 04:26 WBC 10.5 RBC 2.95 L Hgb 8.4 L Hct 26.2 L MCV 89 MCH 28.4 MCHC 32.1 RDW 13.4 Plt Count 162 Seg Neutrophils % 60.5 Lymphocytes % 19.3 Monocytes % 17.3 H Eosinophils % 2.6 Basophils % 0.3 Absolute Neutrophils 6.3 Absolute Lymphocytes 2.0 Absolute Monocytes 1.8 H Absolute Eosinophils 0.3 Absolute Basophils 0.0 Sodium 138.0 Potassium 4.9 Chloride 109 H Carbon Dioxide 24 Anion Gap 5 BUN 23 H Creatinine 1.25 Est GFR ( Amer) > 60 Est GFR (Non-Af Amer) 58 L Glucose 172 H Calcium 8.4 08/14/16 08/14/16 08/14/16 15:52 15:52 21:57 Creatine Kinase 96 99 CK-MB (CK-2) 0.49 Troponin I < 0.012 NT-Pro-B Natriuret Pep 08/14/16 08/15/16 08/15/16 21:57 03:57 03:57 Creatine Kinase 85 CK-MB (CK-2) 0.61 0.43 Troponin I < 0.012 < 0.012 NT-Pro-B Natriuret Pep 08/15/16 03:57 Creatine Kinase CK-MB (CK-2) Troponin I NT-Pro-B Natriuret Pep 282 Impressions: Knee X-Ray 08/14/16 11:36 IMPRESSION: SATISFACTORY POSTOPERATIVE RIGHT KNEE. Renal Ultrasound 08/17/16 00:00 IMPRESSION: No hydronephrosis. Chest X-Ray 08/18/16 07:00 IMPRESSION: NO ACUTE RADIOGRAPHIC FINDING IN THE CHEST. Assessment & Plan - Diagnosis (1) Abnormal EKG Is this a current diagnosis for this admission?: Yes (2) Acute and chronic respiratory failure Qualifiers: Respiratory failure complication: hypoxia and hypercapnia Qualified Code(s): J96.21 - Acute and chronic respiratory failure with hypoxia Is this a current diagnosis for this admission?: YesPlan: The above patient has failed BiPAP. This patient would benefit from noninvasive mechanical ventilation via the trilogy AVAPS/AE and faster responding AVAPS rates. The trilogy is able to provide a target tidal volume and also adjusting the EPAP pressures to maintain a patent airway as well as an oral backup rate this machine will help improve PaCO2 levels. The severity of the patient's condition will lead to future hospitalizations and readmissions as well as life-threatening situations without the use of this device trilogy home vent needed for hypercapnic respiratory failure. Family medical to follow for trilogy set up. (3) Acute renal failure (ARF) Is this a current diagnosis for this admission?: No (4) Obesity hypoventilation syndrome Is this a current diagnosis for this admission?: YesPlan: The above patient has failed BiPAP. This patient would benefit from noninvasive mechanical ventilation via the trilogy AVAPS/AE and faster responding AVAPS rates. The trilogy is able to provide a target tidal volume and also adjusting the EPAP pressures to maintain a patent airway as well as an oral backup rate this machine will help improve PaCO2 levels. The severity of the patient's condition will lead to future hospitalizations and readmissions as well as life-threatening situations without the use of this device trilogy home vent needed for hypercapnic respiratory failure. Family [facility] to follow for trilogy set up. (5) Obstructive sleep apnea Is this a current diagnosis for this admission?: Yes
[2016-08-21] MEDS: PREGABALIN 75 MG CAPSULE PO SCH ×2 (12:58→21:23)
[2016-08-21] MEDS: CITALOPRAM HYDROBROMIDE 20 MG TABLET PO SCH (12:58)
[2016-08-21] MEDS: SENNOSIDES/DOCUSATE 8.6-50 MG 1 EACH TABLET PO SCH ×2 (12:59→19:02)
[2016-08-21] MEDS: ASPIRIN 81 MG TABLET, CHEWABLE PO SCH (12:59)
[2016-08-21] MEDS: CARVEDILOL 12.5 MG TABLET PO SCH ×2 (12:59→21:21)
[2016-08-21] MEDS: POTASSIUM CHLORIDE 10 MEQ TABLET.SA PO SCH (13:19)
[2016-08-21] MEDS: PRENATAL VITAMIN W-O CA NO5/FE FUMARATE/FA CAPSULE PO SCH (13:19)
[2016-08-21] MEDS ORDERED: LACTULOSE SYRUP 20 GM/30 ML UDCUP PO ONE (13:30)
[2016-08-21] MEDS: ACETAMINOPHEN 325 MG TABLET PO PRN (13:43)
[2016-08-21] MEDS ORDERED: BISACODYL 10 MG SUPP.RECT PR ONE (16:00)
--- NOTE | 2016-08-21 17:10 | PDOC PROGRESS REPORT ---
Subjective Progress Note for:: 08/21/16 Subjective:: Denies any complaints Physical Exam Vital Signs: Temp Pulse Resp BP Pulse Ox 99.3 F 86 22 H 195/93 H 97 08/21/16 08:00 08/21/16 14:10 08/21/16 14:10 08/21/16 08:00 08/21/16 14:10 Pulse Oximeter Continuous Start: 08/14/16 14: 37 Freq: Status: Complete Document 08/14/16 14:37 [facility] (Rec: 08/14/16 14:38 [facility] ECART_RESP_) Pulse Oximetry Assessment Oxygen Saturation (92-100) 97 Oxygen Delivery Method Bi-pap Fraction of Inspired Oxygen (FIO2) 21 Equipment Usage Initial Set Up Continuous Pulse Oximeter 24 Hour Charge Charge Now Continuous SpO2 Machine # [id number] Pulse Oximeter Continuous Start: 08/14/16 15: 12 Freq: RTQ4 Status: Complete Document 08/15/16 21:50 [facility] [place] (Rec: 08/15/16 22:35 [facility] [place] ECART_RESP_) Pulse Oximetry Assessment Equipment Usage Equipment Discontinued Continuous SpO2 Machine # [id number] Intake & Output 08/20/16 08/21/16 08/22/16 06:59 06:59 06:59 Intake Total 4636 2950 Output Total 775 1600 Balance 3861 1350 Weight 145.1 kg General appearance: PRESENT: no acute distress Eye exam: PRESENT: conjunctiva pink. ABSENT: scleral icterus Mouth exam: PRESENT: moist, tongue midline Respiratory exam: PRESENT: clear to auscultation roman. ABSENT: rales, rhonchi, wheezes Cardiovascular exam: PRESENT: RRR. ABSENT: diastolic murmur, rubs, systolic murmur GI/Abdominal exam: PRESENT: normal bowel sounds, soft. ABSENT: distended, guarding, mass, organolmegaly, rebound, tenderness Extremities exam: ABSENT: calf tenderness, clubbing, pedal edema Neurological exam: PRESENT: alert, awake, oriented to person, oriented to place , oriented to time, oriented to situation, CN II-XII grossly intact. ABSENT: motor sensory deficit Psychiatric exam: PRESENT: appropriate affect Skin exam: PRESENT: other - Dressing in place on the right knee Results Laboratory Results: 08/21/16 04:26 08/21/16 04:26 08/21/16 08/21/16 04:26 04:26 WBC 10.5 RBC 2.95 L Hgb 8.4 L Hct 26.2 L MCV 89 MCH 28.4 MCHC 32.1 RDW 13.4 Plt Count 162 Seg Neutrophils % 60.5 Lymphocytes % 19.3 Monocytes % 17.3 H Eosinophils % 2.6 Basophils % 0.3 Absolute Neutrophils 6.3 Absolute Lymphocytes 2.0 Absolute Monocytes 1.8 H Absolute Eosinophils 0.3 Absolute Basophils 0.0 Sodium 138.0 Potassium 4.9 Chloride 109 H Carbon Dioxide 24 Anion Gap 5 BUN 23 H Creatinine 1.25 Est GFR ( Amer) > 60 Est GFR (Non-Af Amer) 58 L Glucose 172 H Calcium 8.4 08/14/16 08/14/16 08/14/16 15:52 15:52 21:57 Creatine Kinase 96 99 CK-MB (CK-2) 0.49 Troponin I < 0.012 NT-Pro-B Natriuret Pep 08/14/16 08/15/16 08/15/16 21:57 03:57 03:57 Creatine Kinase 85 CK-MB (CK-2) 0.61 0.43 Troponin I < 0.012 < 0.012 NT-Pro-B Natriuret Pep 08/15/16 03:57 Creatine Kinase CK-MB (CK-2) Troponin I NT-Pro-B Natriuret Pep 282 Impressions: Knee X-Ray 08/14/16 11:36 IMPRESSION: SATISFACTORY POSTOPERATIVE RIGHT KNEE. Renal Ultrasound 08/17/16 00:00 IMPRESSION: No hydronephrosis. Chest X-Ray 08/18/16 07:00 IMPRESSION: NO ACUTE RADIOGRAPHIC FINDING IN THE CHEST. Assessment & Plan - Diagnosis (1) Acute and chronic respiratory failure Qualifiers: Respiratory failure complication: hypoxia and hypercapnia Qualified Code(s): J96.21 - Acute and chronic respiratory failure with hypoxia Is this a current diagnosis for this admission?: YesPlan: Likely secondary to obstructive sleep apnea. (2) Obstructive sleep apnea Is this a current diagnosis for this admission?: YesPlan: Continue with BiPAP (3) Bradycardia Is this a current diagnosis for this admission?: YesPlan: Likely secondary to hypoxia (4) Coronary artery disease Qualifiers: Coronary Disease-Associated Artery/Lesion type: [place] artery [place] vs. transplanted heart: [place] heart Associated angina: angina presence unspecified Qualified Code(s): I25.10 - Atherosclerotic heart disease of [place] coronary artery without angina pectoris Is this a current diagnosis for this admission?: YesPlan: Denies any chest pain (5) Diabetes mellitus type 2 in obese Is this a current diagnosis for this admission?: YesPlan: Continue with sliding scale insulin. (6) Essential hypertension Is this a current diagnosis for this admission?: Yes (7) PTSD (post-traumatic stress disorder) Is this a current diagnosis for this admission?: Yes (8) BPH (benign prostatic hyperplasia) Qualifiers: Lower urinary tract symptom presence: presence of symptoms unspecified Qualified Code(s): N40.0 - Benign prostatic hyperplasia without lower urinary tract symptoms Is this a current diagnosis for this admission?: Yes (9) Acute renal failure (ARF) Is this a current diagnosis for this admission?: NoPlan: The patient's creatinine continues to improve. - Time Time Spent with patient: 15-24 minutes
[2016-08-21] MEDS: ATORVASTATIN CALCIUM 20 MG TABLET PO SCH (21:21)
[2016-08-21] MEDS: RIVAROXABAN 10 MG TABLET PO SCH (21:24)
[2016-08-21] MEDS: INSULIN REG, HUMAN 100 UNIT/ML 3 ML VIAL (PYX) SUBCUT PRN (22:38)
[2016-08-22] MEDS: HYDRALAZINE HCL INJ/PF 20 MG/1 ML SDV IV PRN ×3 (00:08→17:38)
[2016-08-22] MEDS: IPRATROPIUM/ALBUTEROL 0.5-2.5 MG/3 ML AMPUL NEB SCH ×2 (02:04→08:48)
[2016-08-22] MEDS: LANSOPRAZOLE 30 MG TAB.RAP.DR PO SCH (05:02)
[2016-08-22 06:33] LABS: ANION GAP 7 (5-19); BLOOD UREA NITROGEN 18 mg/dL (7-20); CALCIUM 8.5 mg/dL (8.4-10.2); CARBON DIOXIDE 23 mmol/L (22-30); CHLORIDE 107 mmol/L (98-107); CREATININE RESULT 1.18 mg/dL (0.52-1.25); GLUCOSE 177 mg/dL (75-110); POTASSIUM 4.5 mmol/L (3.6-5.0); SODIUM 136.8 mmol/L (137-145)
[2016-08-22] MEDS ORDERED: ALBUTEROL SULFATE 0.083% NEB 2.5 MG/3 ML AMPUL NEB PRN (12:05)
[2016-08-22] MEDS ORDERED: FUROSEMIDE INJ/PF 20 MG/2 ML SDV IV SCH (12:15)
--- NOTE | 2016-08-22 12:15 | PDOC PROGRESS REPORT ---
Subjective Progress Note for:: 08/22/16 Subjective:: Patient has several basic issues. First he has noted increased swelling in his legs. He normally takes Lasix twice daily. He has currently been off of Lasix and on IV fluids. He has also noted pain in his right upper quadrant and epigastric region. This pain is worse after meals. He has had some intermittent low-grade fevers. Physical Exam Vital Signs: Temp Pulse Resp BP Pulse Ox 98.7 F 82 16 174/92 H 94 08/22/16 07:53 08/22/16 08:48 08/22/16 08:48 08/22/16 07:53 08/22/16 08:48 Pulse Oximeter Continuous Start: 08/14/16 14: 37 Freq: Status: Complete Document 08/14/16 14:37 [facility] (Rec: 08/14/16 14:38 [facility] [email or web address]) Pulse Oximetry Assessment Oxygen Saturation (92-100) 97 Oxygen Delivery Method Bi-pap Fraction of Inspired Oxygen (FIO2) 21 Equipment Usage Initial Set Up Continuous Pulse Oximeter 24 Hour Charge Charge Now Continuous SpO2 Machine # [id number] Pulse Oximeter Continuous Start: 08/14/16 15: 12 Freq: RTQ4 Status: Complete Document 08/15/16 21:50 [facility] (Rec: 08/15/16 22:35 [facility] [email or web address]) Pulse Oximetry Assessment Equipment Usage Equipment Discontinued Continuous SpO2 Machine # [id number]-13 Intake & Output 08/21/16 08/22/16 08/23/16 06:59 06:59 06:59 Intake Total 2950 740 Output Total 1600 650 Balance 1350 90 GENERAL: No acute distress HEENT: Conjunctiva clear, nonicteric, moist mucous membranes, no JVD, midline trachea RESPIRATORY: Clear to auscultation bilaterally, no wheezes, no rhonchi CARDIAC: Regular rate and rhythm, no murmurs/gallops/rubs ABDOMEN: Soft, obese, epigastric to right upper quadrant tenderness EXTREMETIES: Pitting edema bilateral lower extremities NEUROLOGIC: Alert, oriented to person/place/time, CN's grossly intact, no focal deficits SKIN: No erythema noted around the right knee incision PSYCH: Normal mood, normal affect Results Laboratory Results: 08/21/16 04:26 08/22/16 06:00 08/22/16 06:00 Sodium 136.8 L Potassium 4.5 Chloride 107 Carbon Dioxide 23 Anion Gap 7 BUN 18 Creatinine 1.18 Est GFR ( Amer) > 60 Est GFR (Non-Af Amer) > 60 Glucose 177 H Calcium 8.5 08/14/16 08/14/16 08/14/16 15:52 15:52 21:57 Creatine Kinase 96 99 CK-MB (CK-2) 0.49 Troponin I < 0.012 NT-Pro-B Natriuret Pep 08/14/16 08/15/16 08/15/16 21:57 03:57 03:57 Creatine Kinase 85 CK-MB (CK-2) 0.61 0.43 Troponin I < 0.012 < 0.012 NT-Pro-B Natriuret Pep 08/15/16 03:57 Creatine Kinase CK-MB (CK-2) Troponin I NT-Pro-B Natriuret Pep 282 Impressions: Knee X-Ray 08/14/16 11:36 IMPRESSION: SATISFACTORY POSTOPERATIVE RIGHT KNEE. Renal Ultrasound 08/17/16 00:00 IMPRESSION: No hydronephrosis. Chest X-Ray 08/18/16 07:00 IMPRESSION: NO ACUTE RADIOGRAPHIC FINDING IN THE CHEST. Assessment & Plan - Diagnosis (1) History of arthroplasty of right knee Is this a current diagnosis for this admission?: YesPlan: Patient is being followed by Dr. Myers of orthopedics. He will go to rehab once he is medically stable. (2) Acute diastolic CHF (congestive heart failure) Is this a current diagnosis for this admission?: YesPlan: Discontinue IV fluids. Start Lasix 20 mg IV every 12 hours. Continue Coreg. (3) Abdominal pain Is this a current diagnosis for this admission?: YesPlan: Check right upper quadrant ultrasound. Continue Prevacid. (4) Acute renal failure (ARF) Is this a current diagnosis for this admission?: YesPlan: Resolved. Discontinue IV fluids and restart Lasix. (5) Bradycardia Is this a current diagnosis for this admission?: Yes (6) Coronary artery disease Qualifiers: Coronary Disease-Associated Artery/Lesion type: [place] artery [place] vs. transplanted heart: [place] heart Associated angina: angina presence unspecified Qualified Code(s): I25.10 - Atherosclerotic heart disease of [place] coronary artery without angina pectoris Is this a current diagnosis for this admission?: Yes (7) Diabetes mellitus type 2 in obese Is this a current diagnosis for this admission?: YesPlan: Restart Lantus at lower dose of 20 units subcu nightly. Sliding scale insulin. (8) Essential hypertension Is this a current diagnosis for this admission?: YesPlan: Blood pressure remains uncontrolled on Coreg 25 mg twice daily. Start Norvasc 5 mg daily. As needed IV hydralazine. (9) Hepatitis C Qualifiers: Viral hepatitis chronicity: unspecified Hepatic coma status: without hepatic coma Qualified Code(s): B19.20 - Unspecified viral hepatitis C without hepatic coma Is this a current diagnosis for this admission?: Yes (10) Obstructive sleep apnea Is this a current diagnosis for this admission?: YesPlan: BiPAP. - Time Time Spent with patient: 35 or more minutes Anticipated discharge: Acute Rehab Within: within 72 hours
[2016-08-22] MEDS: CITALOPRAM HYDROBROMIDE 20 MG TABLET PO SCH (12:21)
[2016-08-22] MEDS: PREGABALIN 75 MG CAPSULE PO SCH ×2 (12:24→21:11)
[2016-08-22] MEDS: ASPIRIN 81 MG TABLET, CHEWABLE PO SCH (12:24)
[2016-08-22] MEDS: PRENATAL VITAMIN W-O CA NO5/FE FUMARATE/FA CAPSULE PO SCH (12:24)
[2016-08-22] MEDS: CARVEDILOL 12.5 MG TABLET PO SCH ×2 (12:24→21:12)
[2016-08-22] MEDS: POTASSIUM CHLORIDE 10 MEQ TABLET.SA PO SCH (12:24)
[2016-08-22] MEDS: SENNOSIDES/DOCUSATE 8.6-50 MG 1 EACH TABLET PO SCH ×2 (12:25→17:38)
[2016-08-22] MEDS ORDERED: AMLODIPINE BESYLATE 5 MG TABLET PO ONE (12:30)
[2016-08-22] MEDS: ACETAMINOPHEN 325 MG TABLET PO PRN ×2 (12:37→21:11)
[2016-08-22] MEDS: INSULIN REG, HUMAN 100 UNIT/ML 3 ML VIAL (PYX) SUBCUT PRN ×2 (12:38→17:38)
[2016-08-22] MEDS ORDERED: FUROSEMIDE INJ/PF 20 MG/2 ML SDV IV ONE (13:00)
--- NOTE | 2016-08-22 17:57 | PDOC PROGRESS REPORT ---
Subjective Progress Note for:: 08/22/16 Subjective:: awake and alert Despite reports to the contrary patient states he will comply with his BiPAP use Physical Exam Vital Signs: Temp Pulse Resp BP Pulse Ox 99.1 F 82 16 187/88 H 94 08/22/16 04:11 08/22/16 08:48 08/22/16 08:48 08/22/16 04:11 08/22/16 08:48 Pulse Oximeter Continuous Start: 08/14/16 14: 37 Freq: Status: Complete Document 08/14/16 14:37 [facility] (Rec: 08/14/16 14:38 [facility] [email or web address]) Pulse Oximetry Assessment Oxygen Saturation (92-100) 97 Oxygen Delivery Method Bi-pap Fraction of Inspired Oxygen (FIO2) 21 Equipment Usage Initial Set Up Continuous Pulse Oximeter 24 Hour Charge Charge Now Continuous SpO2 Machine # [id number] Pulse Oximeter Continuous Start: 08/14/16 15: 12 Freq: RTQ4 Status: Complete Document 08/15/16 21:50 [facility] (Rec: 08/15/16 22:35 [facility] [email or web address]) Pulse Oximetry Assessment Equipment Usage Equipment Discontinued Continuous SpO2 Machine # [id number] Intake & Output 08/21/16 08/22/16 08/23/16 06:59 06:59 06:59 Intake Total 2950 740 Output Total 1600 650 Balance 1350 90 General appearance: PRESENT: no acute distress, cooperative, disheveled, morbidly obese, well-developed Head exam: PRESENT: atraumatic, normocephalic Eye exam: PRESENT: conjunctiva pale, EOMI Mouth exam: PRESENT: dry mucosa, neck supple Neck exam: ABSENT: carotid bruit, JVD, lymphadenopathy, thyromegaly Respiratory exam: PRESENT: decreased breath sounds, prolonged expiratory phas, rhonchi, unlabored, wheezes Cardiovascular exam: PRESENT: RRR, +S1, +S2 Pulses: PRESENT: normal radial pulses GI/Abdominal exam: PRESENT: normal bowel sounds, soft. ABSENT: distended, guarding, mass, organolmegaly, rebound, tenderness Rectal exam: PRESENT: deferred Gentrourinary exam: PRESENT: indwelling catheter Musculoskeletal exam: PRESENT: other - Status post surgery left knee Neurological exam: PRESENT: alert, awake Focused psych exam: PRESENT: internal stimuli Results Laboratory Results: 08/21/16 04:26 08/22/16 06:00 08/22/16 06:00 Sodium 136.8 L Potassium 4.5 Chloride 107 Carbon Dioxide 23 Anion Gap 7 BUN 18 Creatinine 1.18 Est GFR ( Amer) > 60 Est GFR (Non-Af Amer) > 60 Glucose 177 H Calcium 8.5 08/14/16 08/14/16 08/14/16 15:52 15:52 21:57 Creatine Kinase 96 99 CK-MB (CK-2) 0.49 Troponin I < 0.012 NT-Pro-B Natriuret Pep 08/14/16 08/15/16 08/15/16 21:57 03:57 03:57 Creatine Kinase 85 CK-MB (CK-2) 0.61 0.43 Troponin I < 0.012 < 0.012 NT-Pro-B Natriuret Pep 08/15/16 03:57 Creatine Kinase CK-MB (CK-2) Troponin I NT-Pro-B Natriuret Pep 282 Impressions: Knee X-Ray 08/14/16 11:36 IMPRESSION: SATISFACTORY POSTOPERATIVE RIGHT KNEE. Renal Ultrasound 08/17/16 00:00 IMPRESSION: No hydronephrosis. Chest X-Ray 08/18/16 07:00 IMPRESSION: NO ACUTE RADIOGRAPHIC FINDING IN THE CHEST. Assessment & Plan - Diagnosis (1) Abnormal EKG Is this a current diagnosis for this admission?: Yes (2) Acute and chronic respiratory failure Qualifiers: Respiratory failure complication: hypoxia and hypercapnia Qualified Code(s): J96.21 - Acute and chronic respiratory failure with hypoxia Is this a current diagnosis for this admission?: Yes (3) Acute renal failure (ARF) Is this a current diagnosis for this admission?: No (4) Obesity hypoventilation syndrome Is this a current diagnosis for this admission?: Yes (5) Obstructive sleep apnea Is this a current diagnosis for this admission?: Yes - Plan Summary Plan Summary: As I understand it plans for placement today or tomorrow
--- NOTE | 2016-08-22 20:23 | RADIOLOGY REPORT (SQ) ---
EXAM DESCRIPTION: U/S ABDOMEN LTD W/DOPPLER COMPLETED DATE/TIME: 08/22/2016 8:14 pm REASON FOR STUDY: RUQ pain M17.11 UNILATERAL PRIMARY OSTEOARTHRITIS, RIGHT KNEE COMPARISON: None. TECHNIQUE: Dynamic and static grayscale images acquired of the abdomen and recorded on PACS. Additio nal selected color Doppler and spectral images recorded. LIMITATIONS: Limited study due to body habitus, inability to tolerate decubitus position, or hold br eath. FINDINGS: PANCREAS: Limited visualization of the head of the pancreas. The body and tail are obscur ed by bowel gas. No masses. Visualized pancreatic duct normal caliber. LIVER: Liver demonstrates coarsened echotexture with increased echogenicity consistent with fatty dep osition. No focal liver lesions. Liver is normal in size. LIVER VASCULATURE: Normal directional flow of the main portal vein and hepatic veins. GALLBLADDER: No stones. Normal wall thickness. No pericholecystic fluid. ULTRASOUND-DETECTED VANEGAS'S SIGN: Negative. INTRAHEPATIC DUCTS AND COMMON DUCT: CBD and intrahepatic ducts normal caliber. No filling defects. INFERIOR VENA CAVA: Normal flow. AORTA: No aneurysm. RIGHT KIDNEY: Normal size. Normal echogenicity. No solid or suspicious masses. No hydronephrosis. No calcifications. PERITONEAL AND RIGHT PLEURAL SPACE: No ascites or effusions. OTHER: No other significant findings. IMPRESSION: 1. Hepatic steatosis. No focal liver lesions. 2. Otherwise unremarkable right upper quadrant ultrasound. Study is somewhat limited due to patient body habitus and inability to hold breath/ position and decubitus position. TECHNICAL DOCUMENTATION: JOB ID: [id number] [employer]- All Rights Reserved
[2016-08-22] MEDS: ATORVASTATIN CALCIUM 20 MG TABLET PO SCH (21:11)
[2016-08-22] MEDS: FUROSEMIDE INJ/PF 20 MG/2 ML SDV IV SCH (21:12)
[2016-08-22] MEDS: RIVAROXABAN 10 MG TABLET PO SCH (21:12)
[2016-08-22] MEDS: INSULIN GLARGINE,HUM.REC.ANLOG 300 UNIT/3 ML INSULN.PEN SUBCUT SCH (22:45)
[2016-08-23] MEDS: LANSOPRAZOLE 30 MG TAB.RAP.DR PO SCH (08:31)
[2016-08-23] MEDS: CITALOPRAM HYDROBROMIDE 20 MG TABLET PO SCH (08:31)
[2016-08-23] MEDS: HYDROCODONE/ACETAMINOPHEN 5-325 MG TABLET PO PRN ×2 (08:32→17:38)
[2016-08-23] MEDS: POTASSIUM CHLORIDE 10 MEQ TABLET.SA PO SCH (08:32)
[2016-08-23] MEDS: ASPIRIN 81 MG TABLET, CHEWABLE PO SCH (09:30)
[2016-08-23] MEDS: PRENATAL VITAMIN W-O CA NO5/FE FUMARATE/FA CAPSULE PO SCH (09:30)
[2016-08-23] MEDS: SENNOSIDES/DOCUSATE 8.6-50 MG 1 EACH TABLET PO SCH ×2 (09:30→17:31)
[2016-08-23] MEDS: AMLODIPINE BESYLATE 5 MG TABLET PO SCH (09:30)
[2016-08-23] MEDS: CARVEDILOL 12.5 MG TABLET PO SCH ×2 (09:30→21:40)
[2016-08-23] MEDS: FUROSEMIDE INJ/PF 20 MG/2 ML SDV IV SCH ×2 (09:31→21:40)
[2016-08-23] MEDS: PREGABALIN 75 MG CAPSULE PO SCH ×2 (09:31→21:40)
[2016-08-23] MEDS: INSULIN REG, HUMAN 100 UNIT/ML 3 ML VIAL (PYX) SUBCUT PRN ×4 (09:43→21:46)
--- NOTE | 2016-08-23 14:00 | PDOC PROGRESS REPORT ---
Subjective Progress Note for:: 08/23/16 Subjective:: awake and alert wanting to go home soon Physical Exam Vital Signs: Temp Pulse Resp BP Pulse Ox 97.5 F 66 20 169/85 H 100 08/23/16 07:53 08/23/16 07:53 08/23/16 07:53 08/23/16 07:53 08/23/16 07:53 Pulse Oximeter Continuous Start: 08/14/16 14: 37 Freq: Status: Complete Document 08/14/16 14:37 [facility] (Rec: 08/14/16 14:38 [facility] ECART_RESP_) Pulse Oximetry Assessment Oxygen Saturation (92-100) 97 Oxygen Delivery Method Bi-pap Fraction of Inspired Oxygen (FIO2) 21 Equipment Usage Initial Set Up Continuous Pulse Oximeter 24 Hour Charge Charge Now Continuous SpO2 Machine # [id number] Pulse Oximeter Continuous Start: 08/14/16 15: 12 Freq: RTQ4 Status: Complete Document 08/15/16 21:50 [facility] (Rec: 08/15/16 22:35 [facility] ECART_RESP_) Pulse Oximetry Assessment Equipment Usage Equipment Discontinued Continuous SpO2 Machine # [id number]-13 Intake & Output 08/22/16 08/23/16 08/24/16 06:59 06:59 06:59 Intake Total 740 955 Output Total 650 1050 Balance 90 -95 General appearance: PRESENT: no acute distress, cooperative, disheveled, morbidly obese, well-developed Head exam: PRESENT: atraumatic, normocephalic Eye exam: PRESENT: conjunctiva pale, EOMI Mouth exam: PRESENT: moist, neck supple, tongue midline, other - [place] 4 Neck exam: ABSENT: carotid bruit, JVD, lymphadenopathy, thyromegaly Respiratory exam: PRESENT: decreased breath sounds, prolonged expiratory phas, rhonchi, symmetrical, unlabored Cardiovascular exam: PRESENT: RRR, +S1, +S2 Pulses: PRESENT: normal radial pulses GI/Abdominal exam: PRESENT: normal bowel sounds, soft. ABSENT: distended, guarding, mass, organolmegaly, rebound, tenderness Rectal exam: PRESENT: deferred Extremities exam: PRESENT: other - Status post left knee surgery Neurological exam: PRESENT: alert, awake Psychiatric exam: PRESENT: normal mood Skin exam: PRESENT: dry, warm Results Laboratory Results: 08/21/16 04:26 08/22/16 06:00 08/14/16 08/14/16 08/14/16 15:52 15:52 21:57 Creatine Kinase 96 99 CK-MB (CK-2) 0.49 Troponin I < 0.012 NT-Pro-B Natriuret Pep 08/14/16 08/15/16 08/15/16 21:57 03:57 03:57 Creatine Kinase 85 CK-MB (CK-2) 0.61 0.43 Troponin I < 0.012 < 0.012 NT-Pro-B Natriuret Pep 08/15/16 03:57 Creatine Kinase CK-MB (CK-2) Troponin I NT-Pro-B Natriuret Pep 282 Impressions: Knee X-Ray 08/14/16 11:36 IMPRESSION: SATISFACTORY POSTOPERATIVE RIGHT KNEE. Renal Ultrasound 08/17/16 00:00 IMPRESSION: No hydronephrosis. Chest X-Ray 08/18/16 07:00 IMPRESSION: NO ACUTE RADIOGRAPHIC FINDING IN THE CHEST. Abdomen Ultrasound 08/22/16 12:06 IMPRESSION: 1. Hepatic steatosis. No focal liver lesions. 2. Otherwise unremarkable right upper quadrant ultrasound. Study is somewhat limited due to patient body habitus and inability to hold breath/ position and decubitus position. Assessment & Plan - Diagnosis (1) Abnormal EKG Is this a current diagnosis for this admission?: Yes (2) Acute and chronic respiratory failure Qualifiers: Respiratory failure complication: hypoxia and hypercapnia Qualified Code(s): J96.21 - Acute and chronic respiratory failure with hypoxia Is this a current diagnosis for this admission?: YesPlan: Currently at baseline with continued use of noninvasive positive pressure ventilation (3) Acute renal failure (ARF) Is this a current diagnosis for this admission?: No (4) Obesity hypoventilation syndrome Is this a current diagnosis for this admission?: YesPlan: Stable at this time using noninvasive positive pressure ventilation (5) Obstructive sleep apnea Is this a current diagnosis for this admission?: Yes
--- NOTE | 2016-08-23 14:34 | PDOC PROGRESS REPORT ---
Subjective Progress Note for:: 08/23/16 Subjective:: Patient states that her shortness of breath is improving. He states that he has had good response to IV Lasix in terms of urine output. He has no further epigastric pain. Physical Exam Vital Signs: Temp Pulse Resp BP Pulse Ox 97.8 F 67 17 158/86 H 98 08/23/16 12:00 08/23/16 12:05 08/23/16 12:05 08/23/16 12:00 08/23/16 12:00 Pulse Oximeter Continuous Start: 08/14/16 14: 37 Freq: Status: Complete Document 08/14/16 14:37 [facility] (Rec: 08/14/16 14:38 [facility] [email or web address]) Pulse Oximetry Assessment Oxygen Saturation (92-100) 97 Oxygen Delivery Method Bi-pap Fraction of Inspired Oxygen (FIO2) 21 Equipment Usage Initial Set Up Continuous Pulse Oximeter 24 Hour Charge Charge Now Continuous SpO2 Machine # [id number] Pulse Oximeter Continuous Start: 08/14/16 15: 12 Freq: RTQ4 Status: Complete Document 08/15/16 21:50 [facility] (Rec: 08/15/16 22:35 [facility] [email or web address]) Pulse Oximetry Assessment Equipment Usage Equipment Discontinued Continuous SpO2 Machine # [id number] Intake & Output 08/22/16 08/23/16 08/24/16 06:59 06:59 06:59 Intake Total 740 955 Output Total 650 1050 Balance 90 -95 GENERAL: No acute distress HEENT: Conjunctiva clear, nonicteric, moist mucous membranes, no JVD, midline trachea RESPIRATORY: Clear to auscultation bilaterally, no wheezes, no rhonchi CARDIAC: Regular rate and rhythm, no murmurs/gallops/rubs ABDOMEN: Soft, obese, nontender EXTREMETIES: Pitting edema bilateral lower extremities NEUROLOGIC: Alert, oriented to person/place/time, CN's grossly intact, no focal deficits SKIN: No erythema noted around the right knee incision PSYCH: Normal mood, normal affect Results Laboratory Results: 08/21/16 04:26 08/22/16 06:00 08/14/16 08/14/16 08/14/16 15:52 15:52 21:57 Creatine Kinase 96 99 CK-MB (CK-2) 0.49 Troponin I < 0.012 NT-Pro-B Natriuret Pep 08/14/16 08/15/16 08/15/16 21:57 03:57 03:57 Creatine Kinase 85 CK-MB (CK-2) 0.61 0.43 Troponin I < 0.012 < 0.012 NT-Pro-B Natriuret Pep 08/15/16 03:57 Creatine Kinase CK-MB (CK-2) Troponin I NT-Pro-B Natriuret Pep 282 Impressions: Knee X-Ray 08/14/16 11:36 IMPRESSION: SATISFACTORY POSTOPERATIVE RIGHT KNEE. Renal Ultrasound 08/17/16 00:00 IMPRESSION: No hydronephrosis. Chest X-Ray 08/18/16 07:00 IMPRESSION: NO ACUTE RADIOGRAPHIC FINDING IN THE CHEST. Abdomen Ultrasound 08/22/16 12:06 IMPRESSION: 1. Hepatic steatosis. No focal liver lesions. 2. Otherwise unremarkable right upper quadrant ultrasound. Study is somewhat limited due to patient body habitus and inability to hold breath/ position and decubitus position. Assessment & Plan - Diagnosis (1) History of arthroplasty of right knee Is this a current diagnosis for this admission?: YesPlan: Patient is being followed by Dr. Myers of orthopedics. He will go to rehab once he is medically stable. (2) Acute diastolic CHF (congestive heart failure) Is this a current diagnosis for this admission?: YesPlan: Continue Lasix 20 mg IV every 12 hours. Continue Coreg. (3) Abdominal pain Is this a current diagnosis for this admission?: YesPlan: Significantly improved. Right upper quadrant ultrasound with no acute process. Fatty liver disease noted. Continue Prevacid. (4) Acute renal failure (ARF) Is this a current diagnosis for this admission?: YesPlan: Resolved. (5) Bradycardia Is this a current diagnosis for this admission?: Yes (6) Coronary artery disease Qualifiers: Coronary Disease-Associated Artery/Lesion type: [place] artery [place] vs. transplanted heart: [place] heart Associated angina: angina presence unspecified Qualified Code(s): I25.10 - Atherosclerotic heart disease of [place] coronary artery without angina pectoris Is this a current diagnosis for this admission?: Yes (7) Diabetes mellitus type 2 in obese Is this a current diagnosis for this admission?: YesPlan: Lantus. Sliding scale insulin. (8) Essential hypertension Is this a current diagnosis for this admission?: YesPlan: Blood pressure improved. Continue Coreg 25 mg twice daily. Started Norvasc 5 mg daily 08/22/2016. As needed IV hydralazine. (9) Hepatitis C Qualifiers: Viral hepatitis chronicity: unspecified Hepatic coma status: without hepatic coma Qualified Code(s): B19.20 - Unspecified viral hepatitis C without hepatic coma Is this a current diagnosis for this admission?: Yes (10) Obstructive sleep apnea Is this a current diagnosis for this admission?: Yes - Time Time Spent with patient: 25-34 minutes
[2016-08-23] MEDS: ATORVASTATIN CALCIUM 20 MG TABLET PO SCH (21:40)
[2016-08-23] MEDS: ACETAMINOPHEN 325 MG TABLET PO PRN (21:40)
[2016-08-23] MEDS: RIVAROXABAN 10 MG TABLET PO SCH (21:42)
[2016-08-23] MEDS: INSULIN GLARGINE,HUM.REC.ANLOG 300 UNIT/3 ML INSULN.PEN SUBCUT SCH (21:47)
[2016-08-24 05:07] LABS: ABSOLUTE EOSINOPHILS # (AUTO) 0.5 10^3/uL (0.0-0.6); ABSOLUTE LYMPHOCYTES (AUTO) 2.7 10^3/uL (0.5-4.7); ABSOLUTE MONOCYTES (AUTO) 1.7 10^3/uL (0.1-1.4); ABSOLUTE NEUT (AUTO) 6.2 10^3/uL (1.7-8.2); BASOPHILS % (AUTO) 0.4 % (0-2); EOSINOPHILS % (AUTO) 4.3 % (0-6); HEMATOCRIT 25.9 % (37.9-51.0); HEMOGLOBIN 8.3 g/dL (13.5-17.0); LYMPHOCYTES % (AUTO) 24.7 % (13-45); MEAN CORPUSCULAR HEMOGLOBIN 27.8 pg (27.0-33.4); MEAN CORPUSCULAR HGB CONC 32.2 g/dL (32.0-36.0); MEAN CORPUSCULAR VOLUME 86 fl (80-97); MONOCYTES % (AUTO) 15.1 % (3-13); SEGMENTED NEUTROPHILS % (AUTO) 55.5 % (42-78); WHITE BLOOD COUNT 11.1 10^3/uL (4.0-10.5)
[2016-08-24 05:34] LABS: ANION GAP 5 (5-19); BLOOD UREA NITROGEN 16 mg/dL (7-20); CALCIUM 8.4 mg/dL (8.4-10.2); CARBON DIOXIDE 27 mmol/L (22-30); CHLORIDE 104 mmol/L (98-107); CREATININE RESULT 1.27 mg/dL (0.52-1.25); GLUCOSE 150 mg/dL (75-110); MAGNESIUM 1.6 mg/dL (1.6-2.3); POTASSIUM 4.2 mmol/L (3.6-5.0); SODIUM 136.2 mmol/L (137-145)
[2016-08-24] MEDS: HYDROCODONE/ACETAMINOPHEN 5-325 MG TABLET PO PRN (05:50)
[2016-08-24] MEDS: LANSOPRAZOLE 30 MG TAB.RAP.DR PO SCH (06:01)
--- NOTE | 2016-08-24 07:05 | PDOC PROGRESS REPORT ---
Subjective Progress Note for:: 08/24/16 Subjective:: Patient considerably improved Physical Exam Vital Signs: Temp Pulse Resp BP Pulse Ox 37.2 C 100 17 151/86 H 100 08/24/16 04:00 08/24/16 04:00 08/24/16 04:12 08/24/16 04:00 08/24/16 04:12 Pulse Oximeter Continuous Start: 08/14/16 14: 37 Freq: Status: Complete Document 08/14/16 14:37 [facility] (Rec: 08/14/16 14:38 [facility] ECART_RESP_) Pulse Oximetry Assessment Oxygen Saturation (92-100) 97 Oxygen Delivery Method Bi-pap Fraction of Inspired Oxygen (FIO2) 21 Equipment Usage Initial Set Up Continuous Pulse Oximeter 24 Hour Charge Charge Now Continuous SpO2 Machine # [id number] Pulse Oximeter Continuous Start: 08/14/16 15: 12 Freq: RTQ4 Status: Complete Document 08/15/16 21:50 [facility] (Rec: 08/15/16 22:35 [facility] ECART_RESP_) Pulse Oximetry Assessment Equipment Usage Equipment Discontinued Continuous SpO2 Machine # [id number] Intake & Output 08/23/16 08/24/16 08/25/16 06:59 06:59 06:59 Intake Total 955 960 Output Total 1050 1570 Balance -95 -610 General appearance: PRESENT: no acute distress Head exam: PRESENT: normocephalic Eye exam: PRESENT: EOMI Respiratory exam: PRESENT: unlabored Pulses: PRESENT: +1 pedal pulses bilateral Vascular exam: PRESENT: normal capillary refill GI/Abdominal exam: PRESENT: soft Rectal exam: PRESENT: deferred Extremities exam: PRESENT: other - Right knee dressing clean dry and intact Neurological exam: PRESENT: alert, awake, oriented to person, oriented to place , oriented to time, oriented to situation, CN II-XII grossly intact. ABSENT: motor sensory deficit Psychiatric exam: PRESENT: appropriate affect, normal mood. ABSENT: homicidal ideation, suicidal ideation Skin exam: PRESENT: other Results Laboratory Results: 08/24/16 04:59 08/24/16 04:59 08/24/16 08/24/16 04:59 04:59 WBC 11.1 H RBC 3.00 L Hgb 8.3 L Hct 25.9 L MCV 86 MCH 27.8 MCHC 32.2 RDW 14.0 Plt Count 228 Seg Neutrophils % 55.5 Lymphocytes % 24.7 Monocytes % 15.1 H Eosinophils % 4.3 Basophils % 0.4 Absolute Neutrophils 6.2 Absolute Lymphocytes 2.7 Absolute Monocytes 1.7 H Absolute Eosinophils 0.5 Absolute Basophils 0.0 Sodium 136.2 L Potassium 4.2 Chloride 104 Carbon Dioxide 27 Anion Gap 5 BUN 16 Creatinine 1.27 H Est GFR ( Amer) > 60 Est GFR (Non-Af Amer) 57 L Glucose 150 H Calcium 8.4 Magnesium 1.6 08/14/16 08/14/16 08/14/16 15:52 15:52 21:57 Creatine Kinase 96 99 CK-MB (CK-2) 0.49 Troponin I < 0.012 NT-Pro-B Natriuret Pep 08/14/16 08/15/16 08/15/16 21:57 03:57 03:57 Creatine Kinase 85 CK-MB (CK-2) 0.61 0.43 Troponin I < 0.012 < 0.012 NT-Pro-B Natriuret Pep 08/15/16 03:57 Creatine Kinase CK-MB (CK-2) Troponin I NT-Pro-B Natriuret Pep 282 Impressions: Knee X-Ray 08/14/16 11:36 IMPRESSION: SATISFACTORY POSTOPERATIVE RIGHT KNEE. Renal Ultrasound 08/17/16 00:00 IMPRESSION: No hydronephrosis. Chest X-Ray 08/18/16 07:00 IMPRESSION: NO ACUTE RADIOGRAPHIC FINDING IN THE CHEST. Abdomen Ultrasound 08/22/16 12:06 IMPRESSION: 1. Hepatic steatosis. No focal liver lesions. 2. Otherwise unremarkable right upper quadrant ultrasound. Study is somewhat limited due to patient body habitus and inability to hold breath/ position and decubitus position. Assessment & Plan - Diagnosis (1) Arthritis of knee, right Is this a current diagnosis for this admission?: Yes (2) Obstructive sleep apnea Is this a current diagnosis for this admission?: Yes (3) Coronary artery disease Qualifiers: Coronary Disease-Associated Artery/Lesion type: [place] artery [place] vs. transplanted heart: [place] heart Associated angina: angina presence unspecified Qualified Code(s): I25.10 - Atherosclerotic heart disease of [place] coronary artery without angina pectoris Is this a current diagnosis for this admission?: Yes (4) Diabetes mellitus type 2 in obese Is this a current diagnosis for this admission?: Yes - Plan Summary Plan Summary: Patient awaiting clearance from the hospitalist service prior to transfer to a residential facility
[2016-08-24] MEDS: CITALOPRAM HYDROBROMIDE 20 MG TABLET PO SCH (08:27)
[2016-08-24] MEDS: POTASSIUM CHLORIDE 10 MEQ TABLET.SA PO SCH (08:27)
[2016-08-24] MEDS: AMLODIPINE BESYLATE 5 MG TABLET PO SCH (10:04)
[2016-08-24] MEDS: SENNOSIDES/DOCUSATE 8.6-50 MG 1 EACH TABLET PO SCH (10:12)
[2016-08-24] MEDS: PREGABALIN 75 MG CAPSULE PO SCH (10:12)
[2016-08-24] MEDS: FUROSEMIDE INJ/PF 20 MG/2 ML SDV IV SCH (10:12)
[2016-08-24] MEDS: ASPIRIN 81 MG TABLET, CHEWABLE PO SCH (10:12)
[2016-08-24] MEDS: CARVEDILOL 12.5 MG TABLET PO SCH (10:12)
[2016-08-24] MEDS: PRENATAL VITAMIN W-O CA NO5/FE FUMARATE/FA CAPSULE PO SCH (10:12)
--- NOTE | 2016-08-24 10:54 | PDOC TRANSFER SUMMARY ---
General - Admit/Disc Date/PCP Admission Date/Primary Care Provider: 08/14/16 08:00 BHASKAR TURPIN MD Discharge Date: 08/24/16 - Discharge Diagnosis (1) History of arthroplasty of right knee Is this a current diagnosis for this admission?: Yes (2) Acute diastolic CHF (congestive heart failure) Is this a current diagnosis for this admission?: Yes (3) Abdominal pain Is this a current diagnosis for this admission?: Yes (4) Acute renal failure (ARF) Is this a current diagnosis for this admission?: Yes (5) Bradycardia Is this a current diagnosis for this admission?: Yes (6) Coronary artery disease Is this a current diagnosis for this admission?: Yes (7) Diabetes mellitus type 2 in obese Is this a current diagnosis for this admission?: Yes (8) Essential hypertension Is this a current diagnosis for this admission?: Yes (9) Hepatitis C Is this a current diagnosis for this admission?: Yes (10) Obstructive sleep apnea Is this a current diagnosis for this admission?: Yes - Additional Information Resuscitation Status: Full Code Discharge Diet: As Tolerated, Regular Discharge Activity: Balance Activity w/Rest, No Driving, No tub bath Home Medications: Aspirin [Aspirin 81 mg Chewable Tablet] 81 mg PO DAILY 07/11/12 Citalopram Hydrobromide [Celexa 40 mg Tablet] 40 mg PO QAM 07/11/12 Atorvastatin Calcium [Lipitor 20 mg Tablet] 20 mg PO QHS 06/15/16 Carvedilol 25 mg PO BID 06/15/16 Chromium Picolinate [Chromium Picolinate 200 mcg Capsule] 1 cap PO QAM 06/15/16 Potassium Chloride 20 meq PO QAM 06/15/16 Vitamin B Complex 1 each PO DAILY 06/15/16 l-Carnitine Fumarate [l-Carnitine] 200 mg PO QAM 06/15/16 Rivaroxaban [Xarelto 10 mg Tablet] 10 mg PO QHS #0 tablet 08/21/16 Acetaminophen [Tylenol 325 mg Tablet] 650 mg PO Q4HP PRN tablet 08/24/16 Albuterol Sulfate [Ventolin 0.083% Neb 2.5 mg/3 mL Ampul] 2.5 mg NEB RTQ6HP PRN vial.neb 08/24/16 Amlodipine Besylate [Norvasc 5 mg Tablet] 5 mg PO DAILY tablet 08/24/16 Furosemide [Lasix 20 mg Tablet] 20 mg PO BID tablet 08/24/16 Hydrocodone/Acetaminophen [[place] 5-325 mg Tablet] 1 tab PO Q6HP PRN #10 tablet 08/24/16 Insulin Glargine,Hum.rec.anlog [Lantus Insulin 100 Unit/mL] 20 unit SUBCUT QHS insuln.pen 08/24/16 Pregabalin [Lyrica 75 mg Capsule] 75 mg PO Q12 #20 capsule 08/24/16 Sennosides/Docusate 8.6-50 mg [Senna Plus Tablet] 1 each PO BID tablet Tramadol HCl 50 mg PO Q8HP PRN #10 08/24/16 History of Present Illness Admission Date/PCP: 08/14/16 08:00 BHASKAR TURPIN MD History of Present Illness: RAJAT DANIEL is a 66 year old male who presents with progressive right knee pain and functional disability secondary to knee osteoarthritis. Patient is admitted for elective right knee arthroplasty. Hospital Course Hospital Course: Patient was admitted for elective right total knee arthroplasty. Surgery was performed on 08/14/[address] Myers of orthopedics. Patient has been recovering well from an orthopedic standpoint. Patient did have episode of hypoxia postoperatively it was thought to be multifactorial to include obstructive sleep apnea, obesity hypoventilation, congestive heart failure. He has recovered from respiratory failure at this standpoint. He will remain on CPAP at night and I believe this was ordered by Dr. Matt of pulmonary medicine. Patient did have acutely decompensated congestive heart failure secondary to diastolic dysfunction. He required diuresis with IV Lasix for couple days. He is not clinically compensated. He is to continue Coreg. He will be restarted on oral Lasix at discharge. Patient had acute kidney injury earlier in admission that has now resolved. Diabetes is stable on current dose of Lantus and sliding scale insulin. Patient had uncontrolled hypertension. He is on Coreg. He was started on Norvasc 5 mg daily on 08/22/2016. Blood pressure stable at time of discharge. Physical Exam Vital Signs: Temp Pulse Resp BP Pulse Ox 98.9 F 68 16 151/86 H 93 08/24/16 04:00 08/24/16 08:06 08/24/16 08:06 08/24/16 04:00 08/24/16 08:06 Pulse Oximeter Continuous Start: 08/14/16 14: 37 Freq: Status: Complete Document 08/14/16 14:37 [facility] (Rec: 08/14/16 14:38 [facility] ECART_RESP_) Pulse Oximetry Assessment Oxygen Saturation (92-100) 97 Oxygen Delivery Method Bi-pap Fraction of Inspired Oxygen (FIO2) 21 Equipment Usage Initial Set Up Continuous Pulse Oximeter 24 Hour Charge Charge Now Continuous SpO2 Machine # [id number] Pulse Oximeter Continuous Start: 08/14/16 15: 12 Freq: RTQ4 Status: Complete Document 08/15/16 21:50 [facility] (Rec: 08/15/16 22:35 [facility] ECART_RESP_) Pulse Oximetry Assessment Equipment Usage Equipment Discontinued Continuous SpO2 Machine # [id number] Intake & Output 08/23/16 08/24/16 08/25/16 06:59 06:59 06:59 Intake Total 955 960 Output Total 1050 1570 Balance -95 -610 GENERAL: No acute distress HEENT: Conjunctiva clear, nonicteric, moist mucous membranes, no JVD, midline trachea RESPIRATORY: Clear to auscultation bilaterally, no wheezes, no rhonchi CARDIAC: Regular rate and rhythm, no murmurs/gallops/rubs ABDOMEN: Soft, obese, nontender EXTREMETIES: No edema NEUROLOGIC: Alert, oriented to person/place/time, CN's grossly intact, no focal deficits SKIN: No erythema noted around the right knee incision PSYCH: Normal mood, normal affect Results Laboratory Results: 08/24/16 04:59 08/24/16 04:59 08/24/16 08/24/16 04:59 04:59 WBC 11.1 H RBC 3.00 L Hgb 8.3 L Hct 25.9 L MCV 86 MCH 27.8 MCHC 32.2 RDW 14.0 Plt Count 228 Seg Neutrophils % 55.5 Lymphocytes % 24.7 Monocytes % 15.1 H Eosinophils % 4.3 Basophils % 0.4 Absolute Neutrophils 6.2 Absolute Lymphocytes 2.7 Absolute Monocytes 1.7 H Absolute Eosinophils 0.5 Absolute Basophils 0.0 Sodium 136.2 L Potassium 4.2 Chloride 104 Carbon Dioxide 27 Anion Gap 5 BUN 16 Creatinine 1.27 H Est GFR ( Amer) > 60 Est GFR (Non-Af Amer) 57 L Glucose 150 H Calcium 8.4 Magnesium 1.6 08/14/16 08/14/16 08/14/16 15:52 15:52 21:57 Creatine Kinase 96 99 CK-MB (CK-2) 0.49 Troponin I < 0.012 NT-Pro-B Natriuret Pep 08/14/16 08/15/16 08/15/16 21:57 03:57 03:57 Creatine Kinase 85 CK-MB (CK-2) 0.61 0.43 Troponin I < 0.012 < 0.012 NT-Pro-B Natriuret Pep 08/15/16 03:57 Creatine Kinase CK-MB (CK-2) Troponin I NT-Pro-B Natriuret Pep 282 Impressions: Knee X-Ray 08/14/16 11:36 IMPRESSION: SATISFACTORY POSTOPERATIVE RIGHT KNEE. Renal Ultrasound 08/17/16 00:00 IMPRESSION: No hydronephrosis. Chest X-Ray 08/18/16 07:00 IMPRESSION: NO ACUTE RADIOGRAPHIC FINDING IN THE CHEST. Abdomen Ultrasound 08/22/16 12:06 IMPRESSION: 1. Hepatic steatosis. No focal liver lesions. 2. Otherwise unremarkable right upper quadrant ultrasound. Study is somewhat limited due to patient body habitus and inability to hold breath/ position and decubitus position. Qualifiers PATEINT BEING DISCHARGED WITH ANY OF THE FOLLOWING DIAGNOSIS?: No Plan Time Spent: Greater than 30 Minutes
[2016-08-24 12:03] VITALS: BP 171/78
[2016-08-24] MEDS: INSULIN REG, HUMAN 100 UNIT/ML 3 ML VIAL (PYX) SUBCUT PRN (12:47)
[2016-08-24] MEDS ORDERED: HYDROCODONE/ACETAMINOPHEN 5-325 MG TABLET PO ONE (14:00)
--- NOTE | 2016-08-24 15:54 | PDOC PROGRESS REPORT ---
Subjective Progress Note for:: 08/24/16 Subjective:: awake and alert to go [facility] soon Physical Exam Vital Signs: Temp Pulse Resp BP Pulse Ox 98.3 F 73 18 171/78 H 100 08/24/16 11:22 08/24/16 11:22 08/24/16 11:22 08/24/16 11:22 08/24/16 11:22 Pulse Oximeter Continuous Start: 08/14/16 14: 37 Freq: Status: Complete Document 08/14/16 14:37 [facility] (Rec: 08/14/16 14:38 [facility] ECART_RESP_) Pulse Oximetry Assessment Oxygen Saturation (92-100) 97 Oxygen Delivery Method Bi-pap Fraction of Inspired Oxygen (FIO2) 21 Equipment Usage Initial Set Up Continuous Pulse Oximeter 24 Hour Charge Charge Now Continuous SpO2 Machine # [id number] Pulse Oximeter Continuous Start: 08/14/16 15: 12 Freq: RTQ4 Status: Complete Document 08/15/16 21:50 [facility] (Rec: 08/15/16 22:35 [facility] ECART_RESP_) Pulse Oximetry Assessment Equipment Usage Equipment Discontinued Continuous SpO2 Machine # [id number]-13 Intake & Output 08/23/16 08/24/16 08/25/16 06:59 06:59 06:59 Intake Total 955 960 Output Total 1050 1570 Balance -95 -610 General appearance: PRESENT: no acute distress, cooperative, disheveled, morbidly obese, well-developed Head exam: PRESENT: atraumatic, normocephalic Eye exam: PRESENT: conjunctiva pale, EOMI Mouth exam: PRESENT: dry mucosa, neck supple, tongue midline Neck exam: ABSENT: carotid bruit, JVD, lymphadenopathy, thyromegaly Respiratory exam: PRESENT: decreased breath sounds, prolonged expiratory phas, rhonchi, unlabored Cardiovascular exam: PRESENT: RRR, +S1, +S2 Pulses: PRESENT: normal radial pulses GI/Abdominal exam: PRESENT: normal bowel sounds, soft. ABSENT: distended, guarding, mass, organolmegaly, rebound, tenderness Rectal exam: PRESENT: deferred Musculoskeletal exam: PRESENT: other - L knee surgery Neurological exam: PRESENT: alert, awake Psychiatric exam: PRESENT: normal mood Skin exam: PRESENT: dry, warm Results Laboratory Results: 08/24/16 04:59 08/24/16 04:59 08/24/16 08/24/16 04:59 04:59 WBC 11.1 H RBC 3.00 L Hgb 8.3 L Hct 25.9 L MCV 86 MCH 27.8 MCHC 32.2 RDW 14.0 Plt Count 228 Seg Neutrophils % 55.5 Lymphocytes % 24.7 Monocytes % 15.1 H Eosinophils % 4.3 Basophils % 0.4 Absolute Neutrophils 6.2 Absolute Lymphocytes 2.7 Absolute Monocytes 1.7 H Absolute Eosinophils 0.5 Absolute Basophils 0.0 Sodium 136.2 L Potassium 4.2 Chloride 104 Carbon Dioxide 27 Anion Gap 5 BUN 16 Creatinine 1.27 H Est GFR ( Amer) > 60 Est GFR (Non-Af Amer) 57 L Glucose 150 H Calcium 8.4 Magnesium 1.6 08/14/16 08/14/16 08/14/16 15:52 15:52 21:57 Creatine Kinase 96 99 CK-MB (CK-2) 0.49 Troponin I < 0.012 NT-Pro-B Natriuret Pep 08/14/16 08/15/16 08/15/16 21:57 03:57 03:57 Creatine Kinase 85 CK-MB (CK-2) 0.61 0.43 Troponin I < 0.012 < 0.012 NT-Pro-B Natriuret Pep 08/15/16 03:57 Creatine Kinase CK-MB (CK-2) Troponin I NT-Pro-B Natriuret Pep 282 Impressions: Knee X-Ray 08/14/16 11:36 IMPRESSION: SATISFACTORY POSTOPERATIVE RIGHT KNEE. Renal Ultrasound 08/17/16 00:00 IMPRESSION: No hydronephrosis. Chest X-Ray 08/18/16 07:00 IMPRESSION: NO ACUTE RADIOGRAPHIC FINDING IN THE CHEST. Abdomen Ultrasound 08/22/16 12:06 IMPRESSION: 1. Hepatic steatosis. No focal liver lesions. 2. Otherwise unremarkable right upper quadrant ultrasound. Study is somewhat limited due to patient body habitus and inability to hold breath/ position and decubitus position. Assessment & Plan - Diagnosis (1) Abnormal EKG Is this a current diagnosis for this admission?: Yes (2) Acute and chronic respiratory failure Qualifiers: Respiratory failure complication: hypoxia and hypercapnia Qualified Code(s): J96.21 - Acute and chronic respiratory failure with hypoxia Is this a current diagnosis for this admission?: No (3) Acute renal failure (ARF) Is this a current diagnosis for this admission?: No (4) Obesity hypoventilation syndrome Is this a current diagnosis for this admission?: Yes (5) Obstructive sleep apnea Is this a current diagnosis for this admission?: Yes
[2016-08-24] MEDS ORDERED: FUROSEMIDE 20 MG TABLET PO SCH (18:00)
== END 2016-08-24 16:30 | DRG 469 ==
LOC: INOR 08-14 08:00 → 4S 08-14 13:24
PROVIDERS: ADMIT Orthopaedic Surgery; ATTEND Orthopaedic Surgery
PROC: 5A09457 Assistance with Respiratory Ventilation, 24-96 Consecutive Hours, Continuous Positive Airway Pressure (ICD-10-PCS; 2016-08-14)
PROC: 0SRC0J9 Replacement of Right Knee Joint with Synthetic Substitute, Cemented, Open Approach (ICD-10-PCS; principal; 2016-08-14 10:00)
DX: M17.11 Unilateral primary osteoarthritis, right knee (principal); I50.31 Acute diastolic (congestive) heart failure; J96.21 Acute and chronic respiratory failure with hypoxia; E66.2 Morbid (severe) obesity with alveolar hypoventilation; N17.9 Acute kidney failure, unspecified; Z68.41 Body mass index [BMI] 40.0-44.9, adult; R00.1 Bradycardia, unspecified; I25.10 Atherosclerotic heart disease of native coronary artery without angina pectoris; F43.10 Post-traumatic stress disorder, unspecified; N40.0 Benign prostatic hyperplasia without lower urinary tract symptoms; E11.9 Type 2 diabetes mellitus without complications; E78.5 Hyperlipidemia, unspecified; I10 Essential (primary) hypertension; B18.2 Chronic viral hepatitis C; Z79.82 Long term (current) use of aspirin; Z79.899 Other long term (current) drug therapy
CPT/HCPCS: 01402; 36415; 36600; 71010; 76705; 76770; 80048; 81001; 82040; 82550; 82553; 82570; 82803; 82947; 82962; 83036; 83735; 83880; 84100; 84132; 84300; 84484; 85025; 85027; 85610; 85730; 88305; 88311; 89190; 93005; 93010; 93306; 93976; 94640; 94660; 94762; 94799; C9290; G8978-GP; G8979-GP; G8987-GO; G8988-GO; J0360; J1642; J1741; J1815; J1940; J2250; J2270; J2310; J2405; J2704; J2765; J3370; J3490; J7030; J7050; J7060; J7620

== ENCOUNTER → 2016-07-31 | Outpatient (CLI) | payer OTHER, MEDICARE ==
[~2016-07-31] MED LIST: BUPIVACAINE INJ/PF LIPOSOME/PF 266 MG/20 ML SDV IJ PRN; CLINDAMYCIN 600 MG/D5W RTU 600 MG/50 ML RTUPB IV PRN; IBUPROFEN 800 MG/NS 250 ML IV PRN; LACTATED RINGERS 1000 ML IV PRN; LANSOPRAZOLE 15 MG TAB.RAP.DR PO PRN; LIDOCAINE 0.5% INJ-PF (5 MG/ML) 50 ML SDV SUBCUT PRN; OXYCODONE HCL SR 10 MG TABLET PO PRN; SCOPOLAMINE HYDROBROMIDE 1.5 MG PATCH.TD72 TOP PRN; VANCOMYCIN HCL 1,000 MG in DEXTROSE 5%-WATER 250 ML IV PRN
[2016-07-31 11:35] LABS: HEMATOCRIT 37.1 % (37.9-51.0); HGB HCT DIFFERENCE -1.1; MEAN CORPUSCULAR HEMOGLOBIN 28.8 pg (27.0-33.4); MEAN CORPUSCULAR HGB CONC 32.4 g/dL (32.0-36.0); MEAN CORPUSCULAR VOLUME 89 fl (80-97); RED BLOOD COUNT 4.17 10^6/uL (4.35-5.55); RED CELL DISTRIBUTION WIDTH 14.1 % (11.5-14.0); WHITE BLOOD COUNT 6.5 10^3/uL (4.0-10.5)
[2016-07-31 11:47] LABS: APPEARANCE,URINE CLEAR; BILIRUBIN,URINE NEGATIVE (NEGATIVE); GLUCOSE, URINE NEGATIVE (NEGATIVE); KETONES,URINE NEGATIVE (NEGATIVE); LEUKOCYTE ESTERASE,URINE NEGATIVE (NEGATIVE); NITRITE,URINE NEGATIVE (NEGATIVE); PROTEIN,URINE 100 mg/dL (NEGATIVE); URINE SPECIFIC GRAVITY 1.005; UROBILINOGEN,URINE NEGATIVE mg/dL (<2.0)
[2016-07-31 12:02] LABS: ANION GAP 9 (5-19); BLOOD UREA NITROGEN 19 mg/dL (7-20); CALCIUM 9.3 mg/dL (8.4-10.2); CARBON DIOXIDE 29 mmol/L (22-30); CHLORIDE 105 mmol/L (98-107); CREATININE RESULT 1.26 mg/dL (0.52-1.25); GLUCOSE 116 mg/dL (75-110); POTASSIUM 4.5 mmol/L (3.6-5.0); SODIUM 143.1 mmol/L (137-145)
--- NOTE | 2016-08-02 16:20 | EKG REPORT ---
SEVERITY:- ABNORMAL ECG - SINUS OR ECTOPIC ATRIAL RHYTHM LEFT ANTERIOR FASCICULAR BLOCK BORDERLINE T WAVE ABNORMALITIES : Confirmed by: Yulia Ramos MD 02-Aug-2016 16:19:24
== END ==
LOC: OD 10:25 → EDSTATUS 08-14 10:00
PROVIDERS: ATTEND Orthopaedic Surgery
DX: Z01.810 Encounter for preprocedural cardiovascular examination (principal); Z01.812 Encounter for preprocedural laboratory examination; Z01.818 Encounter for other preprocedural examination
CPT/HCPCS: 36415; 80048; 81001; 85027; 93005; 93010; J1741; J3370; J7050; J7060

== ENCOUNTER 2017-04-10 09:43 | Inpatient (IN) | payer OTHER, MEDICARE ==
--- NOTE | 2017-04-10 10:18 | ER Document Report ---
ED General - General Stated Complaint: NAUSEA,VOMITING Time Seen by Provider: 04/10/17 09:50 TRAVEL OUTSIDE OF THE [place] IN LAST 30 DAYS: No - HPI Notes: Patient is a 67-year-old male with a history of hypertension, IDDM, congestive heart failure, previous stent placement (4 yrs ago) who presents to the ED complaining of fever, body ache, nasal congestion/discharge, dry nonproductive cough, chest pressure (worse with cough), nausea/vomiting 1 day. Pt also has some left groin pain that began yesterday. No testicular/penile pain or discharge. Patient states that he has not been able to take his blood pressure medications today due to the nausea and vomiting. Patient has not noticed any hematemesis, melena, hematochezia. Patient states he is otherwise urinating normally and having normal bowel movements. Patient did not receive the flu vaccine this year. Denies any drug allergies. Denies any headache, neck pain, changes in vision/speech/mentation/hearing, sore throat, chest pain, palpitations, syncope, shortness of breath, wheeze, dyspnea, abdominal pain, diarrhea, urinary retention, dysuria, hematuria, or rash. - Related Data Allergies/Adverse Reactions: Penicillins Allergy (Verified 06/15/16 07:53) Hives, SOB Past Medical History - Social History Smoking Status: Never Smoker Family History: DM, Hypertension, Other - Heart failure - Past Medical History Cardiac Medical History: Reports: Hx Coronary Artery Disease, Hx Heart Attack, Hx Hypertension Denies: Hx Atrial Fibrillation, Hx Congestive Heart Failure, Hx Hypercholesterolemia - takes Atorvastatin r/t cardiac stent, Hx Peripheral Vascular Disease, Hx Pulmonary Embolism, Hx Heart Murmur Pulmonary Medical History: Reports: Hx Sleep Apnea - CPAP Denies: Hx Asthma, Hx Bronchitis, Hx COPD, Hx Pneumonia, Hx Respiratory Failure, Hx Tuberculosis Endocrine Medical History: Reports: Hx Diabetes Mellitus Type 2. Denies: Hx Graves' Disease, Hx Hyperthyroidism, Hx Hypothyroidism Renal/ Medical History: Reports: Hx Kidney Stones. Denies: Hx Benign Prostatic Hyperplasia, Hx End Stage Renal Disease, Hx Peritoneal Dialysis Malignancy Medical History: Denies Hx Lung Cancer GI Medical History: Denies: Hx Crohn's Disease, Hx Gastroesophageal Reflux Disease, Hx Hiatal Hernia, Hx Irritable Bowel, Hx Liver Failure, Hx Pancreatitis , Hx Ulcer Musculoskeltal Medical History: Reports Hx Arthritis, Denies Hx Fibromyalgia, Denies Hx Muscular Dystrophy Psychiatric Medical History: Reports: Hx Depression - Anxiety, Hx Post Traumatic Stress Disorder Denies: Hx Bipolar Disorder, Hx Schizophrenia Traumatic Medical History: Denies: Hx Fractures Past Surgical History: Reports: Hx Herniorrhaphy - Bilateral Inguinal/Femoral, Hx Orthopedic Surgery. Denies: Hx Appendectomy, Hx Bowel Surgery, Hx Cholecystectomy, Hx Colostomy, Hx Coronary Artery Bypass Graft, Hx Gastric Bypass Surgery, Hx Pacemaker, Hx Tonsillectomy - Immunizations Hx Diphtheria, Pertussis, Tetanus Vaccination: Yes Review of Systems - Review of Systems -: Yes All other systems reviewed and negative Physical Exam - Vital signs Vitals: Resp 18 04/10/17 09:55 - Notes Notes: PHYSICAL EXAMINATION: GENERAL: Well-appearing, well-nourished and in no acute distress. A&Ox4. Answers questions appropriately. HEAD: Atraumatic, normocephalic. EYES: Pupils equal round and reactive to light, extraocular movements intact, sclera anicteric, conjunctiva are normal. ENT: EAC clear b/l. TM's intact b/l without erythema, fluid, or perforation. Nares patent and with clear discharge. oropharynx no erythema without exudates. No tonsilar hypertrophy without erythema or exudate. No palatine shift. Uvula midline. No tongue protrusion. No drooling, hoarseness, or airway compromise. Moist mucous membranes. No sinus tenderness. NECK: Normal range of motion, supple without lymphadenopathy. No rigidity/ meningismus. LUNGS: Breath sounds clear to auscultation bilaterally and equal. No wheezes rales or rhonchi. No retractions HEART: Regular rate and rhythm without murmurs, rubs, gallops. ABDOMEN: Soft, nontender, nondistended abdomen. No guarding, no rebound. No masses appreciated. Normal bowel sounds present. No CVA tenderness bilaterally. : left groin; no obvious hernia, lymphadenopathy, abscess, erythema, or pulsatile mass lesion. MS: Emily neg b/l. Calves are soft, nonerythematous, and non-tender. Ext: No edema b/l. N/V intact with equal pulses 2+ b/l. NEUROLOGICAL: Normal speech, normal gait. Normal sensory, motor exams PSYCH: Normal mood, normal affect. SKIN: Warm, Dry, normal turgor, no rashes or lesions noted. Course - Re-evaluation Re-evalutation: 04/10/17 13:[address] Morocho. Patient has an elevated white count at 25.8 as well as a possible right lower lobe. Patient's oxygen saturation has been between 91 and 96% on room air. We will admit to the medical floor. Is azalactam as well as Levaquin given IV per hospitalist. Pt/spouse in agreement with plan. 04/10/17 13:13 Dr. liang is not his PCM--I called and discussed with Dr. Liang who confirmed that this is not his patient. - Vital Signs Vital signs: Temp Pulse Resp BP Pulse Ox 101.1 F H 26 H 184/117 H 94 04/10/17 10:00 04/10/17 11:01 04/10/17 11:01 04/10/17 11:11 - Laboratory Result Diagrams: 04/10/17 10:27 04/10/17 10:27 Laboratory results interpreted by me: 04/10/17 04/10/17 04/10/17 10:27 10:27 10:39 WBC 25.8 H Hgb 12.4 L RDW 15.2 H Seg Neuts % (Manual) 83 H Band Neutrophils % 1 L Lymphocytes % (Manual) 7 L Abs Neuts (Manual) 21.7 H Abs Monocytes (Manual) 2.3 H Creatinine 1.59 H Est GFR ( Amer) 53 L Est GFR (Non-Af Amer) 44 L Glucose 148 H Direct Bilirubin 0.7 H Lipase 307.3 H Urine Protein >=500 H Urine Blood SMALL H Urine Urobilinogen 2.0 H Discharge - Discharge Clinical Impression: Fever Qualifiers: Fever type: unspecified Qualified Code(s): R50.9 - Fever, unspecified Pneumonia Qualifiers: Pneumonia type: due to unspecified organism Laterality: right Lung location: lower lobe of lung Qualified Code(s): J18.1 - Lobar pneumonia, unspecified organism Leukocytosis Qualifiers: Leukocytosis type: bandemia Qualified Code(s): D72.825 - Bandemia Condition: Stable Disposition: ADMITTED INPATIENT Admitting Provider: Hospitalist - Dr. Morocho Unit Admitted: Medical Floor
[2017-04-10] MEDS: NORMAL SALINE 1000 ML 1,000 ML IV PRN ×2 (10:41→13:58)
[2017-04-10 11:01] LABS: HEMATOCRIT 37.9 % (37.9-51.0); HEMOGLOBIN 12.4 g/dL (13.5-17.0); MEAN CORPUSCULAR HEMOGLOBIN 27.5 pg (27.0-33.4); MEAN CORPUSCULAR HGB CONC 32.7 g/dL (32.0-36.0); MEAN CORPUSCULAR VOLUME 84 fl (80-97); PLATELET COUNT 172 10^3/uL (150-450); RED CELL DISTRIBUTION WIDTH 15.2 % (11.5-14.0); WHITE BLOOD COUNT 25.8 10^3/uL (4.0-10.5)
[2017-04-10 11:16] LABS: ALANINE AMINOTRANSFERASE 53 U/L (21-72); ALBUMIN 4.1 g/dL (3.5-5.0); ALKALINE PHOSPHATASE 111 U/L (38-126); ANION GAP 8 (5-19); ASPARTATE AMINO TRANSFERASE 52 U/L (17-59); BILIRUBIN,DIRECT 0.7 mg/dL (0.0-0.4); BILIRUBIN,TOTAL 0.9 mg/dL (0.2-1.3); BLOOD UREA NITROGEN 16 mg/dL (7-20); CALCIUM 9.7 mg/dL (8.4-10.2); CARBON DIOXIDE 28 mmol/L (22-30); CHLORIDE 103 mmol/L (98-107); CREATINE KINASE 107 U/L (55-170); GLUCOSE 148 mg/dL (75-110); LIPASE 307.3 U/L (23-300); POTASSIUM 4.3 mmol/L (3.6-5.0); TOTAL PROTEIN 8.1 g/dL (6.3-8.2)
[2017-04-10] MEDS ORDERED: IPRATROPIUM/ALBUTEROL 0.5-2.5 MG/3 ML AMPUL NEB ONE (11:17)
[2017-04-10 11:20] LABS: ABSOLUTE LYMPHOCYTES# (MANUAL) 1.8 10^3/uL (0.5-4.7); ABSOLUTE MONOCYTES # (MANUAL) 2.3 10^3/uL (0.1-1.4); ABSOLUTE NEUTROPHILS# (MANUAL) 21.7 10^3/uL (1.7-8.2); BAND NEUTROPHILS % (MANUAL) 1 % (3-5); BASOPHILS % (MANUAL) 0 % (0-2); EOSINOPHILS % (MANUAL) 0 % (0-6); LYMPHOCYTES % (MANUAL) 7 % (13-45); MONOCYTES % (MANUAL) 9 % (3-13); SEGMENTED NEUTROPHILS % (MAN) 83 % (42-78); TOTAL CELLS COUNTED 100
[2017-04-10 11:21] LABS: ANISOCYTOSIS SLIGHT; PLATELET COMMENT ADEQUATE; TOXIC GRANULATION SLIGHT; TOXIC VACUOLATION PRESENT
[2017-04-10 11:28] LABS: CREATINE KINASE MB 0.32 ng/mL (<4.55); TROPONIN I 0.023 ng/mL
[2017-04-10 11:37] LABS: APPEARANCE,URINE CLEAR; BILIRUBIN,URINE NEGATIVE (NEGATIVE); COLOR,URINE YELLOW; GLUCOSE, URINE NEGATIVE (NEGATIVE); KETONES,URINE NEGATIVE (NEGATIVE); LEUKOCYTE ESTERASE,URINE NEGATIVE (NEGATIVE); NITRITE,URINE NEGATIVE (NEGATIVE); PROTEIN,URINE >=500 mg/dL (NEGATIVE); URINE SPECIFIC GRAVITY 1.013
--- NOTE | 2017-04-10 12:56 | RADIOLOGY REPORT (SQ) ---
EXAM DESCRIPTION: CHEST PA/LAT COMPLETED DATE/TIME: 04/10/2017 12:48 pm REASON FOR STUDY: fever, cough COMPARISON: 03/09/2014. EXAM PARAMETERS: NUMBER OF VIEWS: two views TECHNIQUE: Digital Frontal and Lateral radiographic views of the chest acquired. RADIATION DOSE: NA LIMITATIONS: none FINDINGS: LUNGS AND PLEURA: Streaky density in the right lower lobe. No masses or pneumothorax. No pleural effusion. MEDIASTINUM AND HILAR STRUCTURES: No masses or contour abnormalities. HEART AND VASCULAR STRUCTURES: Heart normal size. No evidence for failure. BONES: No acute findings. HARDWARE: None in the chest. OTHER: No other significant finding. IMPRESSION: STREAKY DENSITY IN THE RIGHT LOWER LOBE, PROBABLY ATELECTASIS ALTHOUGH EARLY INFILTRATE ANOTHER POSSIBILITY. TECHNICAL DOCUMENTATION: JOB ID: [id number] [employer]- All Rights Reserved
[2017-04-10] MEDS ORDERED: KETOROLAC TROMETHAMINE INJ/PF 30 MG/1 ML SDV IV ONE (12:58)
[2017-04-10] MEDS ORDERED: AZTREONAM INJ 1 GM VIAL IV ONE (13:05)
[2017-04-10] MEDS ORDERED: LEVOFLOXACIN 500 MG/D5W RTU 500 MG/100 ML RTUPB IV ONE (13:05)
[2017-04-10] MEDS ORDERED: HYDRALAZINE HCL INJ/PF 20 MG/1 ML SDV IV PRN (15:11)
[2017-04-10] MEDS ORDERED: IPRATROPIUM/ALBUTEROL 0.5-2.5 MG/3 ML AMPUL NEB PRN (15:19)
[2017-04-10] MEDS ORDERED: NORMAL SALINE 1000 ML 1,000 ML IV PRN (15:23)
[2017-04-10] MEDS ORDERED: ONDANSETRON HCL INJ/PF 4 MG/2 ML SDV IV PRN (15:23)
[2017-04-10] MEDS ORDERED: ACETAMINOPHEN 325 MG TABLET PO PRN (15:23)
[2017-04-10] MEDS ORDERED: GLUCAGON,HUMAN RECOMB 1 MG INJ SUBCUT PRN (15:23)
[2017-04-10] MEDS ORDERED: DEXTROSE 40% GEL 15 GM TUBE PO PRN ×2 (15:23)
[2017-04-10] MEDS ORDERED: DEXTROSE 50%-WATER 25 GM/50 ML DISP.SYRIN IV PRN ×2 (15:23)
--- NOTE | 2017-04-10 15:36 | PDOC H&P ---
History of Present Illness Admission Date/PCP: 04/10/17 13:26 FRANCINE RIVERA MD Patient complains of: Fever cough chest pain abdominal pain History of Present Illness: RAJAT DANIEL is a 67 year old male With a known history of hypertension, diabetes coronary artery disease, status post stent in 2012 Who presented with flulike symptoms for the past 24 hours Patient had fever chills dry cough, nausea and vomiting, chest pressure and left lower quadrant abdominal pain. He presented to the ED Upon evaluation he had a white blood count over 20,000 ,chest x-ray was suggestive of a right lower lobe pneumonia He was subsequently admitted under hospitalist service Past Medical History Cardiac Medical History: Reports: Coronary Artery Disease, Myocardial Infarction , Hypertension Denies: Atrial Fibrillation, Congestive Heart Failure, Hyperlipidema - takes Atorvastatin r/t cardiac stent, Peripheral Vascular Disease, Pulmonary Embolism , Heart Murmur Pulmonary Medical History: Reports: Sleep Apnea - CPAP Denies: Asthma, Bronchitis, Chronic Obstructive Pulmonary Disease (COPD), Pneumonia, Respiratory Failure, Tuberculosis Endocrine Medical History: Reports: Diabetes Mellitus Type 2 Denies: Hyperthyroidism, Hypothyroidism Renal/ Medical History: Denies: End Stage Renal Disease Malignancy Medical History: Denies: Lung Cancer GI Medical History: Denies: Crohn's Disease, Gastroesophageal Reflux Disease, Hiatal Hernia Musculoskeltal Medical History: Reports: Arthritis Denies: Fibromyalgia Psychiatric Medical History: Reports: Depression - Anxiety, Post Traumatic Stress Disorder Denies: Bipolar Disorder Past Surgical History Past Surgical History: Reports: Herniorrhaphy - Bilateral Inguinal/Femoral, Orthopedic Surgery Denies: Appendectomy, Cholecystectomy, Colostomy, Coronary Artery Bypass Graft, Gastric Bypass Surgery, Pacemaker, Tonsillectomy Social History Smoking Status: Never Smoker Frequency of Alcohol Use: Occasional Hx Recreational Drug Use: No Drugs: None Hx Prescription Drug Abuse: No - Advance Directive Resuscitation Status: Full Code Surrogate healthcare decision maker:: His Annelise is his surrogate healthcare decision maker Family History Family History: DM, Hypertension, Other - Heart failure Parental Family History Reviewed: Yes Children Family History Reviewed: Yes Sibling(s) Family History Reviewed.: Yes Medication/Allergy Allergies/Adverse Reactions: Penicillins Allergy (Verified 06/15/16 07:53) Hives, SOB Review of Systems Constitutional: PRESENT: chills, fatigue, weakness Cardiovascular: PRESENT: chest pain - The pain was pressure-like with severe more or less constant over the past 24 hours Patient did not have any stress testing since his cardiac catheterization and stent in 2013 Respiratory: PRESENT: cough, dyspnea, sputum Gastrointestinal: PRESENT: abdominal pain - In the left lower quadrant still persistent, nausea, vomiting Musculoskeletal: ABSENT: joint swelling Integumentary: ABSENT: rash, wounds Neurological: ABSENT: abnormal gait, abnormal speech, confusion, dizziness, focal weakness, syncope Endocrine: ABSENT: cold intolerance, heat intolerance, polydipsia, polyuria Hematologic/Lymphatic: ABSENT: easy bleeding, easy bruising Physical Exam Vital Signs: Temp Pulse Resp BP Pulse Ox 101.4 F H 26 H 184/117 H 94 04/10/17 14:10 04/10/17 11:01 04/10/17 11:01 04/10/17 11:11 General appearance: PRESENT: mild distress, obese Head exam: PRESENT: atraumatic, normocephalic Eye exam: PRESENT: conjunctival injection Ear exam: PRESENT: bleeding Throat exam: ABSENT: post pharyngeal erythema, tonsillar erythema, tonsillar exudate, tonsillogmegaly, other Neck exam: ABSENT: carotid bruit, JVD, lymphadenopathy, thyromegaly Respiratory exam: PRESENT: rhonchi, wheezes. ABSENT: rales Cardiovascular exam: PRESENT: RRR. ABSENT: diastolic murmur, rubs, systolic murmur GI/Abdominal exam: PRESENT: tenderness - Left lower quadrant. ABSENT: rebound, rigid Neurological exam: PRESENT: alert, awake, oriented to person, oriented to place , oriented to time, oriented to situation, CN II-XII grossly intact. ABSENT: motor sensory deficit Skin exam: PRESENT: other - loss pigment skin Results Impressions: Chest X-Ray 04/10/17 10:11 IMPRESSION: STREAKY DENSITY IN THE RIGHT LOWER LOBE, PROBABLY ATELECTASIS ALTHOUGH EARLY INFILTRATE ANOTHER POSSIBILITY. Assessment & Plan - Diagnosis (1) Sepsis Qualifiers: Sepsis type: sepsis due to unspecified organism Qualified Code(s): A41.9 - Sepsis, unspecified organism Is this a current diagnosis for this admission?: Yes Plan: Likely secondary to pneumonia following viral illness Patient has a white blood count over 20,000, he is febrile and looks quite ill We will follow sepsis protocol We will initiate broad-spectrum antibiotics Azactam and linezolid to cover MRSA pneumonia Patient is allergic to penicillin (2) Pneumonia Qualifiers: Pneumonia type: due to unspecified organism Laterality: right Lung location: lower lobe of lung Qualified Code(s): J18.1 - Lobar pneumonia, unspecified organism Is this a current diagnosis for this admission?: Yes Plan: See above (3) Abdominal pain Qualifiers: Abdominal location: lower abdomen, unspecified Qualified Code(s): R10.30 - Lower abdominal pain, unspecified Is this a current diagnosis for this admission?: Yes Plan: CT abdomen and pelvis was performed (4) Coronary artery disease Qualifiers: Coronary Disease-Associated Artery/Lesion type: [place] artery [place] vs. transplanted heart: [place] heart Associated angina: angina presence unspecified Qualified Code(s): I25.10 - Atherosclerotic heart disease of [place] coronary artery without angina pectoris Is this a current diagnosis for this admission?: Yes Plan: Patient is status post Stent 4 years ago Is complaining of chest pressure His EKG is normal sinus rhythm without acute changes Initial troponin 0.02 intermediate range ; we will monitor the patient cycle troponins and repeat EKG in a.m. Patient may be a candidate for stress testing prior to discharge when clinically stable (5) ARF (acute renal failure) Is this a current diagnosis for this admission?: Yes Plan: Hydrate (6) Accelerated hypertension Is this a current diagnosis for this admission?: Yes Plan: Initiate Norvasc Hydralazine as needed Home meds have not been confirmed yet - Time Time Spent with patient: Patient will be admitted to [facility] with telemetry - Inpatient Certification Based on my medical assessment, after consideration of the patient's comorbidities, presenting symptoms, or acuity I expect that the services needed warrant INPATIENT care.: Yes I certify that my determination is in accordance with my understanding of Medicare's requirements for reasonable and necessary INPATIENT services [42 CFR 412.3e].: Yes Medical Necessity: Need Close Monitoring Due to Risk of Patient Decompensation, Need For IV Fluids, Need For Continuous Telemetry Monitoring, Need for IV Antibiotics
[2017-04-10] MEDS ORDERED: AMLODIPINE BESYLATE 10 MG TABLET PO ONE (16:00)
--- NOTE | 2017-04-10 16:15 | RADIOLOGY REPORT (SQ) ---
EXAM DESCRIPTION: CT ABD/PELVIS NO ORAL OR IV COMPLETED DATE/TIME: 04/10/2017 3:53 pm REASON FOR STUDY: abdominal pain COMPARISON: None. TECHNIQUE: CT scan of the abdomen and pelvis performed without intravenous or oral contrast. Images reviewed with lung, soft tissue, and bone windows. Reconstructed coronal and sagittal MPR images revi ewed. All images stored on PACS. All CT scanners at this facility use dose modulation, iterative reconstruction, and/or weight based d osing when appropriate to reduce radiation dose to as low as reasonably achievable (ALARA). [facility]: Dose Right [facility]: CareDose [facility]: Dose Right [facility]: Teradose 4D [facility]: Smart [email or web address] RADIATION DOSE: CT Rad equipment meets quality standard of care and radiation dose reduction techniq ues were employed. CTDIvol: 18.8 mGy. DLP: 1061 mGy-cm.mGy. LIMITATIONS: None. FINDINGS: LOWER CHEST: No significant findings. No nodules or infiltrates. NON-CONTRASTED LIVER, SPLEEN, ADRENALS: Evaluation limited by lack of IV contrast. No identified sign ificant masses. PANCREAS: No masses. No peripancreatic inflammatory changes. GALLBLADDER: No identified stones by CT criteria. No inflammatory changes to suggest cholecystitis. RIGHT KIDNEY AND URETER: No suspicious masses. Assessment limited by lack of IV contrast. No signif icant calcifications. No hydronephrosis or hydroureter. LEFT KIDNEY AND URETER: No suspicious masses. Assessment limited by lack of IV contrast. No signifi cant calcifications. No hydronephrosis or hydroureter. AORTA AND RETROPERITONEUM: No aneurysm. No retroperitoneal masses or adenopathy. BOWEL AND PERITONEAL CAVITY: No obvious masses or inflammatory changes. No free fluid. APPENDIX: Normal. PELVIS, BLADDER, AND ABDOMINAL WALL:No abnormal masses. No free fluid. Bladder normal. BONES: No significant findings. OTHER: No other significant finding. IMPRESSION: NO SIGNIFICANT OR ACUTE PROCESS IN THE ABDOMEN OR PELVIS. COMMENT: Quality ID # [id number]: Final reports with documentation of one or more dose reduction techniques (e.g., Automated exposure control, adjustment of the mA and/or kV according to patient size, use of iterative reconstruction technique) TECHNICAL DOCUMENTATION: JOB ID: [id number] [employer]- All Rights Reserved
[2017-04-10] MEDS ORDERED: OSELTAMIVIR PHOSPHATE 75 MG CAPSULE PO SCH (18:00)
[2017-04-10] MEDS ORDERED: OSELTAMIVIR PHOSPHATE 6 MG/1 ML SUSP 60 ML PO SCH (18:00)
[2017-04-10] MEDS: OXYCODONE-ACETAMINOPHEN 5-325 MG TABLET PO PRN (18:36)
[2017-04-10] MEDS: LINEZOLID 300 ML IV SCH (18:37)
[2017-04-10] MEDS ORDERED: OSELTAMIVIR PHOSPHATE 6 MG/1 ML SUSP 60 ML PO ONE (20:00)
[2017-04-10] MEDS: AZTREONAM 1 GM in DEXTROSE 5%-WATER 50 ML IV SCH (21:37)
[2017-04-10] MEDS: PANTOPRAZOLE SODIUM 40 MG VIAL IV SCH (21:38)
[2017-04-10] MEDS ORDERED: AZTREONAM 1 GM in DEXTROSE 5%-WATER 100 ML IV SCH (22:00)
[2017-04-10] MEDS: LEVOFLOXACIN 750 MG TABLET PO SCH (23:38)
[2017-04-11] MEDS: OXYCODONE-ACETAMINOPHEN 5-325 MG TABLET PO PRN ×3 (00:25→18:17)
[2017-04-11 03:21] LABS: HEMATOCRIT 35.2 % (37.9-51.0); HEMOGLOBIN 11.3 g/dL (13.5-17.0); MEAN CORPUSCULAR HEMOGLOBIN 27.5 pg (27.0-33.4); MEAN CORPUSCULAR HGB CONC 32.2 g/dL (32.0-36.0); MEAN CORPUSCULAR VOLUME 86 fl (80-97); PLATELET COUNT 153 10^3/uL (150-450); RED BLOOD COUNT 4.11 10^6/uL (4.35-5.55); RED CELL DISTRIBUTION WIDTH 15.2 % (11.5-14.0)
[2017-04-11 03:44] LABS: ALANINE AMINOTRANSFERASE 44 U/L (21-72); ALBUMIN 3.4 g/dL (3.5-5.0); ALKALINE PHOSPHATASE 87 U/L (38-126); ANION GAP 9 (5-19); ASPARTATE AMINO TRANSFERASE 38 U/L (17-59); BILIRUBIN,DIRECT 0.3 mg/dL (0.0-0.4); BILIRUBIN,TOTAL 0.5 mg/dL (0.2-1.3); BLOOD UREA NITROGEN 15 mg/dL (7-20); CALCIUM 8.6 mg/dL (8.4-10.2); CARBON DIOXIDE 26 mmol/L (22-30); CHLORIDE 104 mmol/L (98-107); CHOLESTEROL 133.51 mg/dL (0-200); GLUCOSE 136 mg/dL (75-110); SODIUM 138.7 mmol/L (137-145); TOTAL PROTEIN 6.6 g/dL (6.3-8.2); TRIGLYCERIDES 97 mg/dL (<150)
[2017-04-11 03:54] LABS: DIRECT LDL 99 mg/dL (<100)
[2017-04-11 04:05] LABS: FREE T4 (FREE THYROXINE) 1.1 ng/dL (0.78-2.19)
[2017-04-11 04:19] LABS: THYROID STIMULATING HORMONE 1.8 uIU/mL (0.47-4.68)
[2017-04-11] MEDS: AZTREONAM 1 GM in DEXTROSE 5%-WATER 50 ML IV SCH ×3 (06:10→22:26)
[2017-04-11] MEDS: LINEZOLID 300 ML IV SCH ×2 (06:11→18:17)
--- NOTE | 2017-04-11 09:39 | EKG REPORT ---
SEVERITY:- ABNORMAL ECG - SINUS RHYTHM PROBABLE INFERIOR INFARCT, AGE INDETERMINATE : Confirmed by: Amadeo Benitez 11-Apr-2017 09:38:27
--- NOTE | 2017-04-11 09:39 | EKG REPORT ---
SEVERITY:- ABNORMAL ECG - SINUS RHYTHM PROBABLE LEFT ATRIAL ABNORMALITY LEFT ANTERIOR FASCICULAR BLOCK : Confirmed by: Amadeo Benitez 11-Apr-2017 09:38:32
[2017-04-11] MEDS: METHOCARBAMOL 500 MG TABLET PO SCH ×4 (11:15→22:30)
[2017-04-11] MEDS: AMLODIPINE BESYLATE 10 MG TABLET PO SCH (11:15)
[2017-04-11] MEDS: ENOXAPARIN SODIUM INJ 30 MG/0.3 ML DISP.SYRIN SUBCUT SCH (11:20)
[2017-04-11] MEDS: PANTOPRAZOLE SODIUM 40 MG VIAL IV SCH ×2 (11:23→22:25)
[2017-04-11] MEDS: OSELTAMIVIR PHOSPHATE 6 MG/1 ML SUSP 60 ML PO SCH ×2 (11:24→18:35)
[2017-04-11] MEDS: NORMAL SALINE 1000 ML 1,000 ML IV PRN ×2 (11:38→22:17)
--- NOTE | 2017-04-11 14:57 | PDOC PROGRESS REPORT ---
Subjective Progress Note for:: 04/11/17 Subjective:: The patient is a 67-year-old male with a past medical history of hypertension, diabetes, coronary artery disease status post stents in 2012 who was admitted on 04/10/17 with sepsis secondary to pneumonia following viral illness abdominal pain. The patient is seen on morning rounds. He is found resting in bed on room air. His primary complaint today is left lower extremity pain. He describes pain that starts in the inguinal area and radiates medially down his leg to his foot described as shooting and burning pain. He states that the pain was present the day prior to his admission. He denies history of back pain or sciatica. Denies dyspnea, orthopnea, cough, chest pain, palpitations, abdominal pain at this time. All questions and concerns were addressed. Reason For Visit: SEPSIS,PNEUMONIA,ABDOMINAL PAIN Physical Exam Vital Signs: Temp Pulse Resp BP Pulse Ox 99.2 F 84 18 157/77 H 94 04/11/17 13:40 04/11/17 14:33 04/11/17 11:19 04/11/17 13:40 04/11/17 13:40 Intake & Output 04/10/17 04/11/17 04/12/17 06:59 06:59 06:59 Output Total 350 Balance -350 General appearance: PRESENT: no acute distress, obese, well-developed, well- nourished Head exam: PRESENT: atraumatic, normocephalic Eye exam: PRESENT: conjunctiva pink, EOMI, PERRLA. ABSENT: scleral icterus Ear exam: PRESENT: normal external ear exam Mouth exam: PRESENT: moist, tongue midline Neck exam: ABSENT: carotid bruit, JVD, lymphadenopathy, thyromegaly Respiratory exam: PRESENT: rhonchi, symmetrical, unlabored. ABSENT: rales, wheezes Cardiovascular exam: PRESENT: RRR, +S1, +S2. ABSENT: diastolic murmur, rubs, systolic murmur Pulses: PRESENT: normal dorsalis pedis pul Vascular exam: PRESENT: normal capillary refill GI/Abdominal exam: PRESENT: normal bowel sounds, soft. ABSENT: distended, guarding, mass, organolmegaly, rebound, tenderness Rectal exam: PRESENT: deferred Extremities exam: PRESENT: full ROM. ABSENT: calf tenderness, clubbing, pedal edema Neurological exam: PRESENT: alert, awake, oriented to person, oriented to place , oriented to time, oriented to situation, CN II-XII grossly intact. ABSENT: motor sensory deficit Psychiatric exam: PRESENT: appropriate affect, normal mood. ABSENT: homicidal ideation, suicidal ideation Skin exam: PRESENT: dry, intact, warm. ABSENT: cyanosis, rash Results Laboratory Results: 04/11/17 03:00 04/11/17 03:00 04/10/17 04/11/17 04/11/17 16:58 03:00 03:00 WBC 17.0 H RBC 4.11 L Hgb 11.3 L Hct 35.2 L MCV 86 MCH 27.5 MCHC 32.2 RDW 15.2 H Plt Count 153 Sodium 138.7 Potassium 4.0 Chloride 104 Carbon Dioxide 26 Anion Gap 9 BUN 15 Creatinine 1.61 H Est GFR ( Amer) 52 L Est GFR (Non-Af Amer) 43 L Glucose 136 H Lactic Acid 2.0 Calcium 8.6 Magnesium 1.7 Total Bilirubin 0.5 AST 38 ALT 44 Alkaline Phosphatase 87 Total Protein 6.6 Albumin 3.4 L Triglycerides 97 Cholesterol 133.51 LDL Cholesterol Direct 99 VLDL Cholesterol 19.0 HDL Cholesterol 26 L TSH Free T4 04/11/17 03:00 WBC RBC Hgb Hct MCV MCH MCHC RDW Plt Count Sodium Potassium Chloride Carbon Dioxide Anion Gap BUN Creatinine Est GFR ( Amer) Est GFR (Non-Af Amer) Glucose Lactic Acid Calcium Magnesium Total Bilirubin AST ALT Alkaline Phosphatase Total Protein Albumin Triglycerides Cholesterol LDL Cholesterol Direct VLDL Cholesterol HDL Cholesterol TSH 1.80 Free T4 1.10 04/10/17 04/10/17 04/11/17 16:58 21:35 03:00 Troponin I 0.013 0.014 < 0.012 Impressions: Chest X-Ray 04/10/17 10:11 IMPRESSION: STREAKY DENSITY IN THE RIGHT LOWER LOBE, PROBABLY ATELECTASIS ALTHOUGH EARLY INFILTRATE ANOTHER POSSIBILITY. Abdomen/Pelvis CT 04/10/17 15:21 IMPRESSION: NO SIGNIFICANT OR ACUTE PROCESS IN THE ABDOMEN OR PELVIS. Assessment & Plan - Diagnosis (1) Sepsis Qualifiers: Sepsis type: sepsis due to unspecified organism Qualified Code(s): A41.9 - Sepsis, unspecified organism Is this a current diagnosis for this admission?: Yes Plan: The patient presented with sepsis secondary to a pneumonia that was present on admission evidenced by leukocytosis greater than 20,000, temperature of 101.4, tachypnea with a rate of 28, and acute renal failure with a creatinine of 1.59. Blood cultures: Group C beta Streptococcus The patient is admitted to [facility] on continuous cardiac telemetry. He was empirically placed on Azactam and Zyvox for coverage of MRSA pneumonia. The patient has a penicillin allergy. The patient received IV fluid resuscitation in the emergency department and has been continued on maintenance IV fluids. (2) Pneumonia Qualifiers: Pneumonia type: due to unspecified organism Laterality: right Lung location: lower lobe of lung Qualified Code(s): J18.1 - Lobar pneumonia, unspecified organism Is this a current diagnosis for this admission?: Yes Plan: Chest x-ray demonstrates a right lower lobe infiltrate. Blood and antibiotics as above. Supplemental oxygen as needed to keep oxygen saturations greater than 92%. The patient is provided DuoNeb treatments 6 hours as needed. We will encourage incentive spirometry hourly while awake and increased mobility. (3) Accelerated hypertension Is this a current diagnosis for this admission?: Yes Plan: We will continue the patient's home dose of Norvasc and diltiazem. We will hold his home furosemide secondary to acute renal failure. IV hydralazine as needed to maintain blood pressures. Placed on a cardiac diet. (4) Abdominal pain Qualifiers: Abdominal location: lower abdomen, unspecified Qualified Code(s): R10.30 - Lower abdominal pain, unspecified Is this a current diagnosis for this admission?: Yes Plan: Improved; patient denies abdominal pain currently. He denies nausea, vomiting, diarrhea, constipation. CT of the abdomen and pelvis was benign. We will continue to monitor and provide supportive care. (5) Acute renal failure (ARF) Plan: Likely prerenal secondary to hypoperfusion during sepsis. The patient does have a history of acute renal failure in the past, has never required hemodialysis. Creatinine is stable today at 1.61. We will continue IV fluids. We will avoid nephrotoxic medications. We will monitor with serial chemistries. (6) Coronary artery disease Qualifiers: Coronary Disease-Associated Artery/Lesion type: [place] artery [place] vs. transplanted heart: [place] heart Associated angina: angina presence unspecified Qualified Code(s): I25.10 - Atherosclerotic heart disease of [place] coronary artery without angina pectoris Is this a current diagnosis for this admission?: Yes Plan: The patient is status post stents 4 years ago. He complained of chest pressure upon admission which has since resolved. Initial EKG as well as follow-up EKG this morning demonstrates sinus rhythm without acute changes. There is no evidence of ST segment depression or elevation. Initial troponin was indeterminate and have trended downward. We will continue daily aspirin and initiate low-dose statin therapy. (7) Sciatica Qualifiers: Laterality: left Qualified Code(s): M54.32 - Sciatica, left side Is this a current diagnosis for this admission?: Yes Plan: The patient complains of posterior to medial sciatica pain. Pain is described as a burning and shooting sensation that radiates distally and is worsened by movements. Oxycodone or Tylenol as needed for pain. Will start Robaxin 4 times daily. Encourage mobility. - Time Time Spent with patient: 25-34 minutes
[2017-04-11] MEDS: ATORVASTATIN CALCIUM 10 MG TABLET PO SCH (22:24)
[2017-04-11] MEDS: CARVEDILOL 12.5 MG TABLET PO SCH (22:25)
[2017-04-12 04:55] LABS: HEMATOCRIT 33.8 % (37.9-51.0); HEMOGLOBIN 10.9 g/dL (13.5-17.0); MEAN CORPUSCULAR HEMOGLOBIN 27.6 pg (27.0-33.4); MEAN CORPUSCULAR HGB CONC 32.3 g/dL (32.0-36.0); MEAN CORPUSCULAR VOLUME 85 fl (80-97); PLATELET COUNT 136 10^3/uL (150-450); RED BLOOD COUNT 3.96 10^6/uL (4.35-5.55); RED CELL DISTRIBUTION WIDTH 15.2 % (11.5-14.0); WHITE BLOOD COUNT 12.5 10^3/uL (4.0-10.5)
[2017-04-12] MEDS: AZTREONAM 1 GM in DEXTROSE 5%-WATER 50 ML IV SCH ×3 (05:15→22:20)
[2017-04-12] MEDS: OXYCODONE-ACETAMINOPHEN 5-325 MG TABLET PO PRN ×4 (05:16→22:23)
[2017-04-12 05:20] LABS: ANION GAP 9 (5-19); BLOOD UREA NITROGEN 18 mg/dL (7-20); CALCIUM 8.7 mg/dL (8.4-10.2); CARBON DIOXIDE 24 mmol/L (22-30); CHLORIDE 103 mmol/L (98-107); GLUCOSE 117 mg/dL (75-110); POTASSIUM 4.2 mmol/L (3.6-5.0); SODIUM 135.5 mmol/L (137-145)
[2017-04-12] MEDS: LINEZOLID 300 ML IV SCH ×2 (06:19→17:23)
[2017-04-12] MEDS: ENOXAPARIN SODIUM INJ 30 MG/0.3 ML DISP.SYRIN SUBCUT SCH (10:08)
[2017-04-12] MEDS: INSULIN GLARGINE,HUM.REC.ANLOG 300 UNIT/3 ML INSULN.PEN SUBCUT SCH (10:08)
[2017-04-12] MEDS: CARVEDILOL 12.5 MG TABLET PO SCH ×2 (10:09→22:22)
[2017-04-12] MEDS: PANTOPRAZOLE SODIUM 40 MG VIAL IV SCH ×2 (10:09→22:23)
[2017-04-12] MEDS: AMLODIPINE BESYLATE 10 MG TABLET PO SCH (10:09)
[2017-04-12] MEDS: ASPIRIN 81 MG TABLET, ENT COATED PO SCH (10:09)
[2017-04-12] MEDS: OSELTAMIVIR PHOSPHATE 6 MG/1 ML SUSP 60 ML PO SCH ×2 (10:10→17:24)
[2017-04-12] MEDS ORDERED: HYDROMORPHONE HCL INJ/PF 2 MG/ML AMPULE IV PRN ×2 (10:30→15:04)
--- NOTE | 2017-04-12 10:45 | PDOC PROGRESS REPORT ---
Subjective Progress Note for:: 04/12/17 Subjective:: The patient is a 67-year-old male with a past medical history of hypertension, diabetes, coronary artery disease status post stents in 2012 who was admitted on 04/10/17 with sepsis secondary to pneumonia following viral illness and abdominal pain. The patient is seen on morning rounds. He is found resting in bed on room air. His continues to complain of left lower extremity pain. He describes pain that starts in the inguinal area and radiates medially down his leg to his foot described as shooting and burning pain. He states that the pain was present the day prior to his admission. He is concerned that today the lower part of the leg is edematous, painful to touch, with erythema. He denies history of back pain or sciatica. No red flags. Denies dyspnea, orthopnea, cough, chest pain, palpitations, abdominal pain at this time. Reason For Visit: SEPSIS,PNEUMONIA,ABDOMINAL PAIN Physical Exam Vital Signs: Temp Pulse Resp BP Pulse Ox 99.0 F 68 14 119/59 L 98 04/12/17 07:36 04/12/17 07:36 04/12/17 07:36 04/12/17 07:36 04/12/17 07:36 Intake & Output 04/11/17 04/12/17 04/13/17 06:59 06:59 06:59 Intake Total 1887 Output Total 350 600 Balance -350 1287 Weight 136.4 kg General appearance: PRESENT: no acute distress, obese, well-developed, well- nourished Head exam: PRESENT: atraumatic, normocephalic Eye exam: PRESENT: conjunctiva pink, EOMI, PERRLA. ABSENT: scleral icterus Ear exam: PRESENT: normal external ear exam Mouth exam: PRESENT: moist, tongue midline Neck exam: ABSENT: carotid bruit, JVD, lymphadenopathy, thyromegaly Respiratory exam: PRESENT: clear to auscultation roman, symmetrical, unlabored. ABSENT: rales, rhonchi, wheezes Cardiovascular exam: PRESENT: RRR, +S1, +S2. ABSENT: diastolic murmur, rubs, systolic murmur, tachycardia Pulses: PRESENT: normal dorsalis pedis pul Vascular exam: PRESENT: normal capillary refill GI/Abdominal exam: PRESENT: normal bowel sounds, soft. ABSENT: distended, guarding, mass, organolmegaly, rebound, tenderness Rectal exam: PRESENT: deferred Extremities exam: PRESENT: full ROM. ABSENT: calf tenderness, clubbing, pedal edema Neurological exam: PRESENT: alert, awake, oriented to person, oriented to place , oriented to time, oriented to situation, CN II-XII grossly intact. ABSENT: motor sensory deficit Psychiatric exam: PRESENT: appropriate affect, normal mood. ABSENT: homicidal ideation, suicidal ideation Skin exam: PRESENT: dry, erythema - Left lower extremity, especially to the lower anterior leg. Slight edema noted. Extremely tender to palpation., warm. ABSENT: cyanosis, rash Results Laboratory Results: 04/12/17 04:36 04/12/17 04:36 04/12/17 04/12/17 04:36 04:36 WBC 12.5 H RBC 3.96 L Hgb 10.9 L Hct 33.8 L MCV 85 MCH 27.6 MCHC 32.3 RDW 15.2 H Plt Count 136 L Sodium 135.5 L Potassium 4.2 Chloride 103 Carbon Dioxide 24 Anion Gap 9 BUN 18 Creatinine 1.69 H Est GFR ( Amer) 49 L Est GFR (Non-Af Amer) 41 L Glucose 117 H Calcium 8.7 04/10/17 04/10/17 04/11/17 16:58 21:35 03:00 Troponin I 0.013 0.014 < 0.012 Impressions: Chest X-Ray 04/10/17 10:11 IMPRESSION: STREAKY DENSITY IN THE RIGHT LOWER LOBE, PROBABLY ATELECTASIS ALTHOUGH EARLY INFILTRATE ANOTHER POSSIBILITY. Abdomen/Pelvis CT 04/10/17 15:21 IMPRESSION: NO SIGNIFICANT OR ACUTE PROCESS IN THE ABDOMEN OR PELVIS. Assessment & Plan - Diagnosis (1) Sepsis Qualifiers: Sepsis type: sepsis due to unspecified organism Qualified Code(s): A41.9 - Sepsis, unspecified organism Is this a current diagnosis for this admission?: Yes Plan: Improving; leukocytosis trending down. The patient has been normotensive, normal heart rate, and no longer appears to be acutely ill. If her curve is trending downward. The patient presented with sepsis secondary to a pneumonia that was present on admission evidenced by leukocytosis greater than 20,000, temperature of 101.4, tachypnea with a rate of 28, and acute renal failure with a creatinine of 1.59. Blood cultures: Group C beta Streptococcus Replete set of blood cultures ordered. The patient is admitted to [facility] on continuous cardiac telemetry. He was empirically placed on Azactam, Zyvox, and Levaquin for coverage of MRSA pneumonia. The patient has a penicillin allergy. The patient received IV fluid resuscitation in the emergency department and has been continued on maintenance IV fluids. (2) Pneumonia Qualifiers: Pneumonia type: due to unspecified organism Laterality: right Lung location: lower lobe of lung Qualified Code(s): J18.1 - Lobar pneumonia, unspecified organism Is this a current diagnosis for this admission?: Yes Plan: Chest x-ray demonstrates a right lower lobe infiltrate. Blood and antibiotics as above. Supplemental oxygen as needed to keep oxygen saturations greater than 92%; patient is currently maintaining oxygen saturations while on room air. The patient is provided DuoNeb treatments 6 hours as needed. We will encourage incentive spirometry hourly while awake and increased mobility. (3) Accelerated hypertension Is this a current diagnosis for this admission?: Yes Plan: We will continue the patient's home dose of Norvasc and diltiazem. We will hold his home furosemide secondary to acute renal failure. IV hydralazine as needed to maintain blood pressures. Placed on a cardiac diet. (4) Acute renal failure (ARF) Plan: There is likely a component of chronic kidney disease given the patient has a history of hypertension and diabetes. He has had acute renal failure in the past. Baseline kidney function likely exacerbated by hypoperfusion during sepsis illness. Creatinine remained stable. We will continue IV fluids. We will avoid nephrotoxic medications. We will monitor with serial chemistries. (5) Coronary artery disease Qualifiers: Coronary Disease-Associated Artery/Lesion type: [place] artery [place] vs. transplanted heart: [place] heart Associated angina: angina presence unspecified Qualified Code(s): I25.10 - Atherosclerotic heart disease of [place] coronary artery without angina pectoris Is this a current diagnosis for this admission?: Yes Plan: The patient is status post stents 4 years ago. He complained of chest pressure upon admission which has since resolved. Initial EKG as well as follow-up EKG this morning demonstrates sinus rhythm without acute changes. There is no evidence of ST segment depression or elevation. Troponins have trended downward. We will continue daily aspirin and initiate low-dose statin therapy. (6) Left leg pain Is this a current diagnosis for this admission?: Yes Plan: Initially believed to be sciatica, however, the patient has now developed edema and erythema to the lower portion of the leg. He is appropriately treated for cellulitis with Zyvox. We will obtain a venous Doppler to rule out DVT. We will repeat blood cultures today. (7) Sciatica Qualifiers: Laterality: left Qualified Code(s): M54.32 - Sciatica, left side Is this a current diagnosis for this admission?: Yes Plan: I no longer believe that this patient was very and seeing sciatica pain as the same extremity is now erythematous with edema to the lower leg. The patient reports that the pain was present prior to his admission. He is appropriately treated for cellulitis. Will obtain a venous Doppler to rule out DVT. Oxycodone or Tylenol as needed for pain. Will discontinue Robaxin. Encourage mobility. (8) Abdominal pain Qualifiers: Abdominal location: lower abdomen, unspecified Qualified Code(s): R10.30 - Lower abdominal pain, unspecified Is this a current diagnosis for this admission?: Yes Plan: Resolved; patient denies abdominal pain currently. He denies nausea, vomiting, diarrhea, constipation. CT of the abdomen and pelvis was benign. We will continue to monitor and provide supportive care. - Time Time Spent with patient: 25-34 minutes Medications reviewed and adjusted accordingly: Yes - Inpatient Certification Based on my medical assessment, after consideration of the patient's comorbidities, presenting symptoms, or acuity I expect that the services needed warrant INPATIENT care.: Yes I certify that my determination is in accordance with my understanding of Medicare's requirements for reasonable and necessary INPATIENT services [42 CFR 412.3e].: Yes Medical Necessity: Need for IV Antibiotics
[2017-04-12] MEDS ORDERED: ONDANSETRON HCL INJ/PF 4 MG/2 ML SDV IV PRN (11:00)
--- NOTE | 2017-04-12 13:21 | Physician Advisory Note ---
Physician Advisor ProgressNote .: Pursuant to the plan for [facility], I have reviewed the medical record for this patient. Physician Advisor Statement: Remarkably good documentation of sepsis, POA, with cause, evidence, associated acute organ dysfunction. Please consider documenting, if you agree: 1. "Pneumonia, suspect gram-____ , evidenced by " (fever, chills, cough [ sputum?], chest pain [pleuritic?], [SOB?], [crackles?], tachypnea, leukocytosis , infiltrate on CXR, ....) [GPos? GNeg? - what is covered for by abx?] 2. "Bilat lower quadrant [or ...] abd pain, suspect due to " (if can give an educated guess) 3. "Hypertensive urgency", or "Hypertensive emergency causing " (see below) If pt has mYD505+ &/or kFZ380+ , without associated sx: --> "HTNive urgency" is now the accepted term. If pt has sQJ429+ &/or vJH246+ , & sx of possible organ damage, such as acute neuro dx, VIRGEN, CP, SOB, acute exac of CHF, ARF, ... --> "Hypertensive emergency" is now the accepted term, & we need documentation of what s/s were caused by the HTN. - "Accel'd HTN" now is coded same as "essential HTN". - *In this case, ARF is already documented to be due to sepsis, so if it is documented to be due to HTN too, cold press operator will have to query as to which caused it.... Thanks! CK
[2017-04-12] MEDS: NORMAL SALINE 1000 ML 1,000 ML IV PRN (13:52)
[2017-04-12] MEDS ORDERED: KETOROLAC TROMETHAMINE INJ/PF 30 MG/1 ML SDV ONE (15:17)
--- NOTE | 2017-04-12 19:05 | XCELERA REPORT ---
[address] [address] Lower Extremity Venous Evaluation Name: RAJAT DANIEL Age: 67 yrs Gender: Male : 1950 Patient Status: Inpatient Patient Location: [address] [place], [place] [address] Study Date: 04/12/2017 03:29 PM Procedure: Color flow and duplex imaging of the veins of the left lower extremity as well as the right Common Femoral vein. Reason For Study: LLE edema, erythema, pain Ordering Physician: HANK STOVALL Performed By: Sonam Rouse Right Sided Venous Evaluation The right common femoral vein is fully compressible. Spontaneous and phasic flow is present in the right common femoral vein. Left Sided Venous Evaluation Normal vessel filling wall to wall, compression and augmentation as well as Colour flow down to the infrageniculate veins. Interpretation Summary No duplex evidence of DVT or obstruction in the left lower extremity nor in the right Common Femoral vein. : HANK STOVALL > Williams Campuzano
[2017-04-12] MEDS: ATORVASTATIN CALCIUM 10 MG TABLET PO SCH (22:21)
[2017-04-12] MEDS: LEVOFLOXACIN 750 MG TABLET PO SCH (22:22)
[2017-04-13] MEDS: NORMAL SALINE 1000 ML 1,000 ML IV PRN ×2 (00:29→06:08)
[2017-04-13] MEDS ORDERED: NORMAL SALINE 1000 ML 1,000 ML IV ONE (04:15)
[2017-04-13 04:20] LABS: ARTERIAL BLOOD BASE EXCESS -2.4 mmol/L; ARTERIAL BLOOD FIO2 2L; ARTERIAL BLOOD H2CO3 1.96 mmol/L (1.05-1.35); ARTERIAL BLOOD HCO3 26.1 mmol/L (20-26); ARTERIAL BLOOD O2 SATURATION 86.7 % (94-98); ARTERIAL BLOOD PCO2 65.1 mmHg (35-45); ARTERIAL BLOOD PH 7.22 (7.35-7.45); ARTERIAL BLOOD PO2 62.6 mmHg (80-100); ARTERIAL BLOOD TOTAL CO2 28.1 mmol/L (23-27)
[2017-04-13 05:04] LABS: MEAN CORPUSCULAR HEMOGLOBIN 27.7 pg (27.0-33.4); MEAN CORPUSCULAR HGB CONC 32.1 g/dL (32.0-36.0); MEAN CORPUSCULAR VOLUME 86 fl (80-97); PLATELET COUNT 130 10^3/uL (150-450); RED CELL DISTRIBUTION WIDTH 14.9 % (11.5-14.0); WHITE BLOOD COUNT 9.1 10^3/uL (4.0-10.5)
[2017-04-13] MEDS: AZTREONAM 1 GM in DEXTROSE 5%-WATER 50 ML IV SCH ×3 (05:05→21:15)
[2017-04-13 05:26] LABS: ANION GAP 10 (5-19); BLOOD UREA NITROGEN 25 mg/dL (7-20); CALCIUM 8.3 mg/dL (8.4-10.2); CARBON DIOXIDE 22 mmol/L (22-30); CHLORIDE 100 mmol/L (98-107); GLUCOSE 99 mg/dL (75-110); POTASSIUM 4.4 mmol/L (3.6-5.0); SODIUM 132.3 mmol/L (137-145)
[2017-04-13] MEDS: LINEZOLID 300 ML IV SCH (06:08)
[2017-04-13] MEDS: ENOXAPARIN SODIUM INJ 40 MG/0.4 ML DISP.SYRIN SUBCUT SCH (09:45)
[2017-04-13] MEDS: INSULIN GLARGINE,HUM.REC.ANLOG 300 UNIT/3 ML INSULN.PEN SUBCUT SCH (09:47)
[2017-04-13] MEDS: AMLODIPINE BESYLATE 10 MG TABLET PO SCH (09:48)
[2017-04-13] MEDS: CARVEDILOL 12.5 MG TABLET PO SCH ×2 (09:49→21:11)
[2017-04-13] MEDS: ASPIRIN 81 MG TABLET, ENT COATED PO SCH (09:49)
[2017-04-13] MEDS: OSELTAMIVIR PHOSPHATE 6 MG/1 ML SUSP 60 ML PO SCH ×2 (10:37→17:32)
[2017-04-13] MEDS: PANTOPRAZOLE SODIUM 40 MG VIAL IV SCH (10:37)
--- NOTE | 2017-04-13 11:29 | PDOC PROGRESS REPORT ---
Subjective Progress Note for:: 04/13/17 Subjective:: The patient is a 67-year-old male with a past medical history of hypertension, diabetes, coronary artery disease status post stents in 2012 who was admitted on 04/10/17 with sepsis secondary to pneumonia following viral illness and abdominal pain. The patient is seen on morning rounds. He is found resting in bed on room air. He states that the edema and pain to his left lower extremity are improved today. He reports that he is feeling very tired today, however, denies fever, chills, malaise, worsening dyspnea, cough. He states that he is improving overall. Reason For Visit: SEPSIS,PNEUMONIA,ABDOMINAL PAIN Physical Exam Vital Signs: Temp Pulse Resp BP Pulse Ox 98.6 F 64 20 124/83 96 04/13/17 07:36 04/13/17 07:36 04/13/17 07:36 04/13/17 07:36 04/13/17 08:00 Intake & Output 04/12/17 04/13/17 04/14/17 06:59 06:59 06:59 Intake Total 1887 4889 Output Total 600 900 Balance 1287 3989 Weight 136.4 kg 140.8 kg General appearance: PRESENT: no acute distress, obese, well-developed, well- nourished Head exam: PRESENT: atraumatic, normocephalic Eye exam: PRESENT: conjunctiva pink, EOMI, PERRLA. ABSENT: scleral icterus Ear exam: PRESENT: normal external ear exam Mouth exam: PRESENT: moist, tongue midline Neck exam: ABSENT: carotid bruit, JVD, lymphadenopathy, thyromegaly Respiratory exam: PRESENT: clear to auscultation roman, decreased breath sounds - Bibasilar, symmetrical, unlabored. ABSENT: rales, rhonchi, wheezes Cardiovascular exam: PRESENT: RRR, +S1, +S2. ABSENT: diastolic murmur, rubs, systolic murmur Pulses: PRESENT: normal dorsalis pedis pul Vascular exam: PRESENT: normal capillary refill GI/Abdominal exam: PRESENT: normal bowel sounds, soft. ABSENT: distended, guarding, mass, organolmegaly, rebound, tenderness Rectal exam: PRESENT: deferred Extremities exam: PRESENT: full ROM, +1 edema - Left lower extremity; improved from yesterday. ABSENT: calf tenderness, clubbing, pedal edema Neurological exam: PRESENT: alert, awake, oriented to person, oriented to place , oriented to time, oriented to situation, CN II-XII grossly intact. ABSENT: motor sensory deficit Psychiatric exam: PRESENT: appropriate affect, normal mood. ABSENT: homicidal ideation, suicidal ideation Skin exam: PRESENT: dry, erythema - Left lower extremity; improved from yesterday, intact, warm. ABSENT: cyanosis, rash Results Laboratory Results: 04/13/17 04:25 04/13/17 04:25 04/13/17 04/13/17 04/13/17 04:00 04:25 04:25 WBC 9.1 RBC 3.60 L Hgb 10.0 L Hct 31.0 L MCV 86 MCH 27.7 MCHC 32.1 RDW 14.9 H Plt Count 130 L Carbonic Acid 1.96 H HCO3/H2CO3 Ratio 13:1 ABG pH 7.22 L ABG pCO2 65.1 H ABG pO2 62.6 L ABG HCO3 26.1 H ABG O2 Saturation 86.7 L ABG Base Excess -2.4 FiO2 2L Sodium 132.3 L Potassium 4.4 Chloride 100 Carbon Dioxide 22 Anion Gap 10 BUN 25 H Creatinine 2.12 H Est GFR ( Amer) 38 L Est GFR (Non-Af Amer) 31 L Glucose 99 Calcium 8.3 L 04/10/17 04/10/17 04/11/17 16:58 21:35 03:00 Troponin I 0.013 0.014 < 0.012 Impressions: Chest X-Ray 04/10/17 10:11 IMPRESSION: STREAKY DENSITY IN THE RIGHT LOWER LOBE, PROBABLY ATELECTASIS ALTHOUGH EARLY INFILTRATE ANOTHER POSSIBILITY. Abdomen/Pelvis CT 04/10/17 15:21 IMPRESSION: NO SIGNIFICANT OR ACUTE PROCESS IN THE ABDOMEN OR PELVIS. Assessment & Plan - Diagnosis (1) Pneumonia Qualifiers: Pneumonia type: due to unspecified organism Laterality: right Lung location: lower lobe of lung Qualified Code(s): J18.1 - Lobar pneumonia, unspecified organism Is this a current diagnosis for this admission?: Yes Plan: Improved. Pneumonia, likely opportunistic following a viral illness as evidenced by flulike symptoms, fever, chills, nonproductive cough, acidosis, and chest x-ray demonstrates a right lower lobe infiltrate. Blood culture: 1 bottle with group C beta Streptococcus. Other bottle has no growth at 48 hours. Repeat set of blood cultures obtained 04/12 are pending. The patient is currently receiving Azactam, Zyvox, and Levaquin. Will obtain MRSA screening and if negative will discontinue the Zyvox. Supplemental oxygen as needed to keep oxygen saturations greater than 92%; patient is currently maintaining oxygen saturations while on room air. BiPAP nightly. The patient is provided DuoNeb treatments 6 hours as needed. We will encourage incentive spirometry hourly while awake and increased mobility. (2) Sepsis Qualifiers: Sepsis type: sepsis due to unspecified organism Qualified Code(s): A41.9 - Sepsis, unspecified organism Is this a current diagnosis for this admission?: Yes Plan: Improving; leukocytosis resolved. The patient has been afebrile, normotensive, normal heart rate, and no longer appears to be acutely ill. The patient presented with sepsis secondary to a pneumonia that was present on admission evidenced by leukocytosis greater than 20,000, temperature of 101.4, tachypnea with a rate of 28, and acute renal failure with a creatinine of 1.59. The patient is admitted to [facility] on continuous cardiac telemetry. Blood cultures and antibiotics as above. The patient has received adequate IV fluid resuscitation; will discontinue IV fluids at this time. (3) Accelerated hypertension Is this a current diagnosis for this admission?: Yes Plan: Blood pressures are adequately controlled. We will continue the patient's home dose of Norvasc and diltiazem. IV hydralazine as needed to maintain blood pressures. Placed on a cardiac diet. (4) Acute renal failure (ARF) Plan: There is likely a component of chronic kidney disease given the patient has a history of hypertension and diabetes. He has had acute renal failure in the past. Baseline kidney function likely exacerbated by hypoperfusion during sepsis illness. Creatinine trending upward despite IV fluids. We will obtain a renal ultrasound today. We will avoid nephrotoxic medications. We will monitor with serial chemistries. (5) Coronary artery disease Qualifiers: Coronary Disease-Associated Artery/Lesion type: [place] artery [place] vs. transplanted heart: [place] heart Associated angina: angina presence unspecified Qualified Code(s): I25.10 - Atherosclerotic heart disease of [place] coronary artery without angina pectoris Is this a current diagnosis for this admission?: Yes Plan: The patient is status post stents 4 years ago. He complained of chest pressure upon admission which has since resolved. Initial EKG as well as follow-up EKG this morning demonstrates sinus rhythm without acute changes. There is no evidence of ST segment depression or elevation. Troponins have trended downward. We will continue daily aspirin and initiate low-dose statin therapy. (6) Cellulitis of left lower leg Is this a current diagnosis for this admission?: Yes Plan: Improved appearance today. Repeat blood cultures are pending. He is appropriately treated for cellulitis with Zyvox. (7) Left leg pain Is this a current diagnosis for this admission?: Yes Plan: Secondary to cellulitis. Plan as above. (8) Diastolic CHF Qualifiers: Heart failure chronicity: chronic Qualified Code(s): I50.32 - Chronic diastolic (congestive) heart failure Is this a current diagnosis for this admission?: Yes Plan: Echocardiogram from July 2015 demonstrates moderate diastolic dysfunction. The patient has received copious amounts of IV fluids as part of sepsis protocol and for treatment of kidney injury. The patient's weight is up approximately 7 kg. The patient's home furosemide was held secondary to kidney function. The patient appears mildly volume overloaded today. Will obtain a proBNP, on admission proBNP was 701. IVF have been discontinued. Will resume p.o. furosemide. If proBNP is markedly elevated will consider more aggressive IV diuresis. (9) Sciatica Qualifiers: Laterality: left Qualified Code(s): M54.32 - Sciatica, left side Is this a current diagnosis for this admission?: No Plan: Leg pain has been determined not to be related to sciatica. (10) Abdominal pain Qualifiers: Abdominal location: lower abdomen, unspecified Qualified Code(s): R10.30 - Lower abdominal pain, unspecified Is this a current diagnosis for this admission?: Yes Plan: Resolved; bilateral lower abdominal pain of unclear etiology during acute illness presentation. Patient denies abdominal pain currently. He denies nausea, vomiting, diarrhea, constipation. CT of the abdomen and pelvis was benign. We will continue to monitor and provide supportive care. - Time Time Spent with patient: 25-34 minutes Medications reviewed and adjusted accordingly: Yes
--- NOTE | 2017-04-13 16:20 | RADIOLOGY REPORT (SQ) ---
EXAM DESCRIPTION: U/S RETROPERITON (RENAL/AORTA) COMPLETED DATE/TIME: 04/13/2017 4:08 pm REASON FOR STUDY: worsening renal function COMPARISON: None. TECHNIQUE: Dynamic and static grayscale images acquired of the kidneys and bladder and recorded on P ACS. Additional selected color Doppler and spectral images recorded. LIMITATIONS: Body habitus and overlying bowel gas. FINDINGS: RIGHT KIDNEY: No evidence of mass or hydronephrosis. LEFT KIDNEY: No evidence of mass or hydronephrosis. BLADDER: No masses. OTHER FINDINGS: No other significant finding. IMPRESSION: No hydronephrosis. TECHNICAL DOCUMENTATION: JOB ID: [id number] [employer]- All Rights Reserved
[2017-04-13] MEDS: ACETAMINOPHEN 325 MG TABLET PO PRN (17:31)
[2017-04-13] MEDS: LINEZOLID 600 MG TABLET PO SCH (17:31)
[2017-04-13] MEDS: OXYCODONE-ACETAMINOPHEN 5-325 MG TABLET PO PRN (21:13)
[2017-04-13] MEDS: ATORVASTATIN CALCIUM 10 MG TABLET PO SCH (21:14)
[2017-04-14] MEDS: AZTREONAM 1 GM in DEXTROSE 5%-WATER 50 ML IV SCH (05:12)
[2017-04-14] MEDS: LINEZOLID 600 MG TABLET PO SCH ×2 (05:15→16:58)
[2017-04-14 05:24] LABS: MEAN CORPUSCULAR HEMOGLOBIN 27.5 pg (27.0-33.4); MEAN CORPUSCULAR HGB CONC 32.3 g/dL (32.0-36.0); MEAN CORPUSCULAR VOLUME 85 fl (80-97); PLATELET COUNT 145 10^3/uL (150-450); RED BLOOD COUNT 3.65 10^6/uL (4.35-5.55); RED CELL DISTRIBUTION WIDTH 14.8 % (11.5-14.0); WHITE BLOOD COUNT 6.6 10^3/uL (4.0-10.5)
[2017-04-14 05:46] LABS: ANION GAP 9 (5-19); BLOOD UREA NITROGEN 27 mg/dL (7-20); CALCIUM 8.8 mg/dL (8.4-10.2); CARBON DIOXIDE 23 mmol/L (22-30); CHLORIDE 103 mmol/L (98-107); GLUCOSE 93 mg/dL (75-110); POTASSIUM 4.2 mmol/L (3.6-5.0); SODIUM 135.1 mmol/L (137-145)
[2017-04-14] MEDS: ENOXAPARIN SODIUM INJ 40 MG/0.4 ML DISP.SYRIN SUBCUT SCH (08:56)
[2017-04-14] MEDS: AMLODIPINE BESYLATE 10 MG TABLET PO SCH (08:57)
[2017-04-14] MEDS: INSULIN GLARGINE,HUM.REC.ANLOG 300 UNIT/3 ML INSULN.PEN SUBCUT SCH (08:57)
[2017-04-14] MEDS: FUROSEMIDE 20 MG TABLET PO SCH (08:57)
[2017-04-14] MEDS: ASPIRIN 81 MG TABLET, ENT COATED PO SCH (08:58)
[2017-04-14] MEDS: OXYCODONE-ACETAMINOPHEN 5-325 MG TABLET PO PRN ×3 (08:58→22:53)
[2017-04-14] MEDS: CARVEDILOL 12.5 MG TABLET PO SCH ×2 (08:58→22:54)
[2017-04-14] MEDS: OSELTAMIVIR PHOSPHATE 6 MG/1 ML SUSP 60 ML PO SCH ×2 (08:59→16:58)
[2017-04-14] MEDS ORDERED: (PENDING PHARMACY ID) (Citalopram Hydrobromide [Celexa 40 Mg Tablet] 40 MG) PO SCH (10:00)
[2017-04-14] MEDS: CITALOPRAM HYDROBROMIDE 20 MG TABLET PO SCH (11:07)
[2017-04-14] MEDS: FLUTICASONE NASAL SPRAY 50 MCG/SPRY 120 SPRAY/16 GM NASL SCH (11:07)
[2017-04-14] MEDS: SODIUM CHLORIDE NASAL SPRAY 44 ML NASL SCH ×3 (11:08→22:57)
--- NOTE | 2017-04-14 12:02 | PDOC PROGRESS REPORT ---
Subjective Progress Note for:: 04/14/17 Subjective:: The patient is a 67-year-old male with a past medical history of hypertension, diabetes, coronary artery disease status post stents in 2012 who was admitted on 04/10/17 with sepsis secondary to pneumonia following viral illness and abdominal pain. The patient is seen on morning rounds. He is found sitting up to the edge of his bed eating breakfast. Currently on room air. He states that the edema and pain to his left lower extremity continue to improve. Overall, he is feeling much better than yesterday and denies fever, chills, malaise, worsening dyspnea , cough. Reason For Visit: SEPSIS,PNEUMONIA,ABDOMINAL PAIN Physical Exam Vital Signs: Temp Pulse Resp BP Pulse Ox 98.1 F 65 16 151/84 H 91 L 04/14/17 07:56 04/14/17 07:56 04/14/17 07:56 04/14/17 07:56 04/14/17 07:56 Intake & Output 04/13/17 04/14/17 04/15/17 06:59 06:59 06:59 Intake Total 4889 1604 Output Total 900 2825 Balance 3989 -1221 Weight 140.8 kg 141.2 kg General appearance: PRESENT: no acute distress, obese, well-developed, well- nourished Head exam: PRESENT: atraumatic, normocephalic Eye exam: PRESENT: conjunctiva pink, EOMI, PERRLA. ABSENT: scleral icterus Ear exam: PRESENT: normal external ear exam Mouth exam: PRESENT: moist, tongue midline Neck exam: ABSENT: carotid bruit, JVD, lymphadenopathy, thyromegaly Respiratory exam: PRESENT: clear to auscultation roman, symmetrical, unlabored. ABSENT: rales, rhonchi, wheezes Cardiovascular exam: PRESENT: RRR, +S1, +S2. ABSENT: diastolic murmur, rubs, systolic murmur Pulses: PRESENT: normal dorsalis pedis pul Vascular exam: PRESENT: normal capillary refill GI/Abdominal exam: PRESENT: normal bowel sounds, soft. ABSENT: distended, guarding, mass, organolmegaly, rebound, tenderness Rectal exam: PRESENT: deferred Extremities exam: PRESENT: full ROM. ABSENT: calf tenderness, clubbing, pedal edema Neurological exam: PRESENT: alert, awake, oriented to person, oriented to place , oriented to time, oriented to situation, CN II-XII grossly intact. ABSENT: motor sensory deficit Psychiatric exam: PRESENT: appropriate affect, normal mood. ABSENT: homicidal ideation, suicidal ideation Skin exam: PRESENT: dry, erythema - Slight errythema to LLE; improved, intact, warm. ABSENT: cyanosis, rash Results Laboratory Results: 04/14/17 05:03 04/14/17 05:03 04/14/17 04/14/17 05:03 05:03 WBC 6.6 RBC 3.65 L Hgb 10.0 L Hct 31.0 L MCV 85 MCH 27.5 MCHC 32.3 RDW 14.8 H Plt Count 145 L Sodium 135.1 L Potassium 4.2 Chloride 103 Carbon Dioxide 23 Anion Gap 9 BUN 27 H Creatinine 2.07 H Est GFR ( Amer) 39 L Est GFR (Non-Af Amer) 32 L Glucose 93 Calcium 8.8 04/10/17 04/10/17 04/11/17 16:58 21:35 03:00 Troponin I 0.013 0.014 < 0.012 NT-Pro-B Natriuret Pep 04/13/17 04:25 Troponin I NT-Pro-B Natriuret Pep 407 Impressions: Chest X-Ray 04/10/17 10:11 IMPRESSION: STREAKY DENSITY IN THE RIGHT LOWER LOBE, PROBABLY ATELECTASIS ALTHOUGH EARLY INFILTRATE ANOTHER POSSIBILITY. Abdomen/Pelvis CT 04/10/17 15:21 IMPRESSION: NO SIGNIFICANT OR ACUTE PROCESS IN THE ABDOMEN OR PELVIS. Renal Ultrasound 04/13/17 00:00 IMPRESSION: No hydronephrosis. Assessment & Plan - Diagnosis (1) Pneumonia Qualifiers: Pneumonia type: due to unspecified organism Laterality: right Lung location: lower lobe of lung Qualified Code(s): J18.1 - Lobar pneumonia, unspecified organism Is this a current diagnosis for this admission?: Yes Plan: Improved. Pneumonia, likely opportunistic following a viral illness as evidenced by flulike symptoms, fever, chills, nonproductive cough, acidosis, and chest x-ray demonstrates a right lower lobe infiltrate. Blood culture: 1 bottle with group C beta Streptococcus. Other bottle has no growth 4 days. Repeat set of blood cultures obtained 04/12 have no growth at 48 hours. MRSA screening is pending. The patient is currently receiving Azactam, Zyvox, and Levaquin. Will obtain MRSA screening and if negative will discontinue the Zyvox. Supplemental oxygen as needed to keep oxygen saturations greater than 92%; patient is currently maintaining oxygen saturations while on room air. BiPAP nightly. The patient is provided DuoNeb treatments 6 hours as needed. We will encourage incentive spirometry hourly while awake and increased mobility. (2) Sepsis Qualifiers: Sepsis type: sepsis due to unspecified organism Qualified Code(s): A41.9 - Sepsis, unspecified organism Is this a current diagnosis for this admission?: Yes Plan: IResolved. leukocytosis resolved. The patient presented with sepsis secondary to a pneumonia that was present on admission evidenced by leukocytosis greater than 20,000, temperature of 101.4, tachypnea with a rate of 28, and acute renal failure with a creatinine of 1.59. The patient is admitted to [facility] on continuous cardiac telemetry. Blood cultures and antibiotics as above. The patient has received adequate IV fluid resuscitation; IVF have been discontinued. (3) Accelerated hypertension Is this a current diagnosis for this admission?: Yes Plan: Blood pressures are adequately controlled. We will continue the patient's home dose of Norvasc and diltiazem. IV hydralazine as needed to maintain blood pressures. Placed on a cardiac diet. (4) Acute renal failure (ARF) Plan: There is likely a component of chronic kidney disease given the patient has a history of hypertension and diabetes. He has had acute renal failure in the past. Baseline kidney function likely exacerbated by hypoperfusion during sepsis illness. Renal ultrasound completed yesterday; no abnormal findings. Creatinine is slightly improved today. We will avoid nephrotoxic medications. We will monitor with serial chemistries. (5) Coronary artery disease Qualifiers: Coronary Disease-Associated Artery/Lesion type: [place] artery [place] vs. transplanted heart: [place] heart Associated angina: angina presence unspecified Qualified Code(s): I25.10 - Atherosclerotic heart disease of [place] coronary artery without angina pectoris Is this a current diagnosis for this admission?: Yes Plan: The patient is status post stents 4 years ago. He complained of chest pressure upon admission which has since resolved. Initial EKG as well as follow-up EKG this morning demonstrates sinus rhythm without acute changes. There is no evidence of ST segment depression or elevation. Troponins have trended downward. We will continue daily aspirin and initiate low-dose statin therapy. (6) Cellulitis of left lower leg Is this a current diagnosis for this admission?: Yes Plan: Continued improved appearance today. Blood cultures as above. He is appropriately treated for cellulitis with Zyvox. (7) Left leg pain Is this a current diagnosis for this admission?: Yes Plan: Secondary to cellulitis. Venous doppler has ruled out DVT. Plan as above. (8) Diastolic CHF Qualifiers: Heart failure chronicity: chronic Qualified Code(s): I50.32 - Chronic diastolic (congestive) heart failure Is this a current diagnosis for this admission?: Yes Plan: Echocardiogram from July 2015 demonstrates moderate diastolic dysfunction. The patient has received copious amounts of IV fluids as part of sepsis protocol and for treatment of kidney injury. The patient's weight is up approximately 7 kg. ProBNP was 701 on admission; actually improved to 407. IVF have been discontinued. Resumed the patient's home dose furosemide yesterday with good urine output. (9) Sciatica Qualifiers: Laterality: left Qualified Code(s): M54.32 - Sciatica, left side Is this a current diagnosis for this admission?: No Plan: Leg pain has been determined not to be related to sciatica. (10) Abdominal pain Qualifiers: Abdominal location: lower abdomen, unspecified Qualified Code(s): R10.30 - Lower abdominal pain, unspecified Is this a current diagnosis for this admission?: Yes Plan: Resolved; bilateral lower abdominal pain of unclear etiology during acute illness presentation. Patient denies abdominal pain currently. He denies nausea, vomiting, diarrhea, constipation. CT of the abdomen and pelvis was benign. We will continue to monitor and provide supportive care. - Time Time Spent with patient: 25-34 minutes Anticipated discharge: Home Within: within 36 hours
[2017-04-14] MEDS ORDERED: SENNOSIDES/DOCUSATE 8.6-50 MG 1 EACH TABLET PO PRN (12:13)
[2017-04-14] MEDS: AZTREONAM 1 GM in NORMAL SALINE 100 ML IV SCH ×2 (14:14→23:02)
[2017-04-14] MEDS: LEVOFLOXACIN 750 MG TABLET PO SCH (22:53)
[2017-04-14] MEDS: ATORVASTATIN CALCIUM 10 MG TABLET PO SCH (22:57)
[2017-04-15 05:21] LABS: HEMATOCRIT 29.6 % (37.9-51.0); HEMOGLOBIN 9.7 g/dL (13.5-17.0); MEAN CORPUSCULAR HEMOGLOBIN 27.8 pg (27.0-33.4); MEAN CORPUSCULAR HGB CONC 32.6 g/dL (32.0-36.0); MEAN CORPUSCULAR VOLUME 85 fl (80-97); PLATELET COUNT 144 10^3/uL (150-450); RED BLOOD COUNT 3.48 10^6/uL (4.35-5.55); WHITE BLOOD COUNT 7.1 10^3/uL (4.0-10.5)
[2017-04-15 05:47] LABS: ANION GAP 6 (5-19); BLOOD UREA NITROGEN 26 mg/dL (7-20); CALCIUM 8.6 mg/dL (8.4-10.2); CARBON DIOXIDE 23 mmol/L (22-30); CHLORIDE 106 mmol/L (98-107); GLUCOSE 140 mg/dL (75-110); POTASSIUM 4.3 mmol/L (3.6-5.0); SODIUM 135.2 mmol/L (137-145)
[2017-04-15] MEDS: AZTREONAM 1 GM in NORMAL SALINE 100 ML IV SCH ×3 (06:18→21:56)
[2017-04-15] MEDS: LINEZOLID 600 MG TABLET PO SCH (06:19)
[2017-04-15] MEDS: ASPIRIN 81 MG TABLET, ENT COATED PO SCH (09:25)
[2017-04-15] MEDS: AMLODIPINE BESYLATE 10 MG TABLET PO SCH (09:25)
[2017-04-15] MEDS: FUROSEMIDE 20 MG TABLET PO SCH (09:25)
[2017-04-15] MEDS: CARVEDILOL 12.5 MG TABLET PO SCH ×2 (09:25→21:55)
[2017-04-15] MEDS: CITALOPRAM HYDROBROMIDE 20 MG TABLET PO SCH (09:25)
[2017-04-15] MEDS: OXYCODONE-ACETAMINOPHEN 5-325 MG TABLET PO PRN ×2 (09:26→21:57)
[2017-04-15] MEDS: FLUTICASONE NASAL SPRAY 50 MCG/SPRY 120 SPRAY/16 GM NASL SCH (09:26)
[2017-04-15] MEDS: SODIUM CHLORIDE NASAL SPRAY 44 ML NASL SCH ×4 (09:27→21:56)
[2017-04-15] MEDS: OSELTAMIVIR PHOSPHATE 6 MG/1 ML SUSP 60 ML PO SCH (09:27)
[2017-04-15] MEDS: ENOXAPARIN SODIUM INJ 40 MG/0.4 ML DISP.SYRIN SUBCUT SCH (09:29)
[2017-04-15] MEDS: INSULIN GLARGINE,HUM.REC.ANLOG 300 UNIT/3 ML INSULN.PEN SUBCUT SCH (09:32)
--- NOTE | 2017-04-15 11:18 | PDOC PROGRESS REPORT ---
Subjective Progress Note for:: 04/15/17 Subjective:: The patient is a 67-year-old male with a past medical history of hypertension, diabetes, coronary artery disease status post stents in 2012 who was admitted on 04/10/17 with sepsis secondary to pneumonia following viral illness and abdominal pain. The patient is seen on morning rounds. He is found sresting in bed comfortably; m he is sleeping but wakes easily. He denies dyspnea and cough. He states that the edema and pain to his left lower extremity have further improved and seems to be coalescing to his lower anterior leg. He has no new questions or concerns. Reason For Visit: SEPSIS,PNEUMONIA,ABDOMINAL PAIN Physical Exam Vital Signs: Temp Pulse Resp BP Pulse Ox 98.5 F 67 20 125/72 98 04/15/17 07:07 04/15/17 07:07 04/15/17 07:07 04/15/17 07:07 04/15/17 07:07 Intake & Output 04/14/17 04/15/17 04/16/17 06:59 06:59 06:59 Intake Total 1604 2051 Output Total 2825 2150 Balance -1221 -99 Weight 141.2 kg 133.8 kg General appearance: PRESENT: no acute distress, obese, well-developed, well- nourished Head exam: PRESENT: atraumatic, normocephalic Eye exam: PRESENT: conjunctiva pink, EOMI, PERRLA. ABSENT: scleral icterus Ear exam: PRESENT: normal external ear exam Mouth exam: PRESENT: moist, tongue midline Neck exam: ABSENT: carotid bruit, JVD, lymphadenopathy, thyromegaly Respiratory exam: PRESENT: clear to auscultation roman, symmetrical, unlabored. ABSENT: rales, rhonchi, wheezes Cardiovascular exam: PRESENT: RRR, +S1, +S2. ABSENT: diastolic murmur, rubs, systolic murmur Pulses: PRESENT: normal dorsalis pedis pul Vascular exam: PRESENT: normal capillary refill GI/Abdominal exam: PRESENT: normal bowel sounds, soft. ABSENT: distended, guarding, mass, organolmegaly, rebound, tenderness Rectal exam: PRESENT: deferred Extremities exam: PRESENT: full ROM. ABSENT: calf tenderness, clubbing, pedal edema Neurological exam: PRESENT: alert, awake, oriented to person, oriented to place , oriented to time, oriented to situation, CN II-XII grossly intact. ABSENT: motor sensory deficit Psychiatric exam: PRESENT: appropriate affect, normal mood. ABSENT: homicidal ideation, suicidal ideation Skin exam: PRESENT: dry, erythema - Distal anterior left lower leg; decreased area. Remains slightly edematous and tender to palpation., intact, warm. ABSENT: cyanosis, rash Results Laboratory Results: 04/15/17 04:59 04/15/17 04:59 04/15/17 04/15/17 04:59 04:59 WBC 7.1 RBC 3.48 L Hgb 9.7 L Hct 29.6 L MCV 85 MCH 27.8 MCHC 32.6 RDW 15.0 H Plt Count 144 L Sodium 135.2 L Potassium 4.3 Chloride 106 Carbon Dioxide 23 Anion Gap 6 BUN 26 H Creatinine 1.86 H Est GFR ( Amer) 44 L Est GFR (Non-Af Amer) 36 L Glucose 140 H Calcium 8.6 04/13/17 17:30 Nasophary ([facility] Only) MRSA Surveillance Culture - Final NO MRSA RECOVERED 04/10/17 04/10/17 04/11/17 16:58 21:35 03:00 Troponin I 0.013 0.014 < 0.012 NT-Pro-B Natriuret Pep 04/13/17 04:25 Troponin I NT-Pro-B Natriuret Pep 407 Impressions: Chest X-Ray 04/10/17 10:11 IMPRESSION: STREAKY DENSITY IN THE RIGHT LOWER LOBE, PROBABLY ATELECTASIS ALTHOUGH EARLY INFILTRATE ANOTHER POSSIBILITY. Abdomen/Pelvis CT 04/10/17 15:21 IMPRESSION: NO SIGNIFICANT OR ACUTE PROCESS IN THE ABDOMEN OR PELVIS. Renal Ultrasound 04/13/17 00:00 IMPRESSION: No hydronephrosis. Assessment & Plan - Diagnosis (1) Pneumonia Qualifiers: Pneumonia type: due to unspecified organism Laterality: right Lung location: lower lobe of lung Qualified Code(s): J18.1 - Lobar pneumonia, unspecified organism Is this a current diagnosis for this admission?: Yes Plan: Resolved. Pneumonia, likely opportunistic following a viral illness as evidenced by flulike symptoms, fever, chills, nonproductive cough, acidosis, and chest x-ray demonstrates a right lower lobe infiltrate. Blood culture: 1 bottle with group C beta Streptococcus. Other bottle has no growth 4 days. Repeat set of blood cultures obtained 2/15 have no growth at 48 hours. MRSA screening is negative. Will discontinue Zyvox and Levaquin. Continue Azactam. Supplemental oxygen as needed to keep oxygen saturations greater than 92%; patient is currently maintaining oxygen saturations while on room air. BiPAP nightly. The patient is provided DuoNeb treatments 6 hours as needed. We will encourage incentive spirometry hourly while awake and increased mobility. (2) Sepsis Qualifiers: Sepsis type: sepsis due to unspecified organism Qualified Code(s): A41.9 - Sepsis, unspecified organism Is this a current diagnosis for this admission?: Yes Plan: Resolved, leukocytosis resolved, PLT trending up, vital signs normal. The patient presented with sepsis secondary to a pneumonia that was present on admission evidenced by leukocytosis greater than 20,000, temperature of 101.4, tachypnea with a rate of 28, and acute renal failure with a creatinine of 1.59. The patient is admitted to [facility] on continuous cardiac telemetry. Blood cultures and antibiotics as above. The patient has received adequate IV fluid resuscitation; IVF have been discontinued. (3) Accelerated hypertension Is this a current diagnosis for this admission?: Yes Plan: Blood pressures are adequately controlled. We will continue the patient's home dose of Norvasc and diltiazem. IV hydralazine as needed to maintain blood pressures. Placed on a cardiac diet. (4) Acute renal failure (ARF) Plan: Improving. There is likely a component of chronic kidney disease given the patient has a history of hypertension and diabetes. He has had acute renal failure in the past. Baseline kidney function likely exacerbated by hypoperfusion during sepsis illness. Renal ultrasound completed yesterday; no abnormal findings. Creatinine continues to improve. We will avoid nephrotoxic medications. We will monitor with serial chemistries. (5) Coronary artery disease Qualifiers: Coronary Disease-Associated Artery/Lesion type: [place] artery [place] vs. transplanted heart: [place] heart Associated angina: angina presence unspecified Qualified Code(s): I25.10 - Atherosclerotic heart disease of [place] coronary artery without angina pectoris Is this a current diagnosis for this admission?: Yes Plan: The patient is status post stents 4 years ago. He complained of chest pressure upon admission which has since resolved. Initial EKG as well as follow-up EKG this morning demonstrates sinus rhythm without acute changes. There is no evidence of ST segment depression or elevation. Troponins have trended downward. We will continue daily aspirin and initiate low-dose statin therapy. (6) Cellulitis of left lower leg Is this a current diagnosis for this admission?: Yes Plan: Continued improved appearance today. Blood cultures as above. He is appropriately treated for cellulitis with Zyvox. (7) Left leg pain Is this a current diagnosis for this admission?: Yes Plan: Secondary to cellulitis. Venous doppler has ruled out DVT. Plan as above. (8) Diastolic CHF Qualifiers: Heart failure chronicity: chronic Qualified Code(s): I50.32 - Chronic diastolic (congestive) heart failure Is this a current diagnosis for this admission?: Yes Plan: Echocardiogram from July 2015 demonstrates moderate diastolic dysfunction. Diuresing well; weight is down. ProBNP was 701 on admission; actually improved to 407. IVF have been discontinued. Continue the patient's home dose furosemide. (9) Sciatica Qualifiers: Laterality: left Qualified Code(s): M54.32 - Sciatica, left side Is this a current diagnosis for this admission?: No Plan: Leg pain has been determined not to be related to sciatica. (10) Abdominal pain Qualifiers: Abdominal location: lower abdomen, unspecified Qualified Code(s): R10.30 - Lower abdominal pain, unspecified Is this a current diagnosis for this admission?: Yes Plan: Resolved; bilateral lower abdominal pain of unclear etiology during acute illness presentation. Patient denies abdominal pain currently. He denies nausea, vomiting, diarrhea, constipation. CT of the abdomen and pelvis was benign. We will continue to monitor and provide supportive care. (11) Obstructive sleep apnea Is this a current diagnosis for this admission?: Yes Plan: BiPAP qHS. Recommend outpatient overnight sleep study. - Time Time Spent with patient: 15-24 minutes Medications reviewed and adjusted accordingly: Yes Anticipated discharge: Home Within: within 48 hours
[2017-04-15] MEDS ORDERED: FUROSEMIDE 20 MG TABLET PO SCH (11:25)
[2017-04-15] MEDS: ATORVASTATIN CALCIUM 10 MG TABLET PO SCH (21:56)
[2017-04-15] MEDS: INSULIN LISPRO 100 UNIT/ML 3 ML VIAL SUBCUT PRN (22:33)
[2017-04-16 05:20] LABS: HEMATOCRIT 30.8 % (37.9-51.0); MEAN CORPUSCULAR HEMOGLOBIN 27.5 pg (27.0-33.4); MEAN CORPUSCULAR HGB CONC 32.3 g/dL (32.0-36.0); MEAN CORPUSCULAR VOLUME 85 fl (80-97); PLATELET COUNT 155 10^3/uL (150-450); RED BLOOD COUNT 3.62 10^6/uL (4.35-5.55); RED CELL DISTRIBUTION WIDTH 14.8 % (11.5-14.0); WHITE BLOOD COUNT 7.4 10^3/uL (4.0-10.5)
[2017-04-16] MEDS: AZTREONAM 1 GM in NORMAL SALINE 100 ML IV SCH (05:37)
[2017-04-16 05:38] LABS: ANION GAP 7 (5-19); BLOOD UREA NITROGEN 26 mg/dL (7-20); CALCIUM 8.7 mg/dL (8.4-10.2); CARBON DIOXIDE 24 mmol/L (22-30); CHLORIDE 107 mmol/L (98-107); GLUCOSE 109 mg/dL (75-110); POTASSIUM 4.4 mmol/L (3.6-5.0); SODIUM 138.1 mmol/L (137-145)
[2017-04-16] MEDS: SODIUM CHLORIDE NASAL SPRAY 44 ML NASL SCH ×4 (08:15→21:21)
[2017-04-16] MEDS: ENOXAPARIN SODIUM INJ 40 MG/0.4 ML DISP.SYRIN SUBCUT SCH (08:15)
[2017-04-16] MEDS: INSULIN GLARGINE,HUM.REC.ANLOG 300 UNIT/3 ML INSULN.PEN SUBCUT SCH (09:06)
[2017-04-16] MEDS: AMLODIPINE BESYLATE 10 MG TABLET PO SCH (09:06)
[2017-04-16] MEDS: CITALOPRAM HYDROBROMIDE 20 MG TABLET PO SCH (09:06)
[2017-04-16] MEDS: CARVEDILOL 12.5 MG TABLET PO SCH ×2 (09:07→21:19)
[2017-04-16] MEDS: ASPIRIN 81 MG TABLET, ENT COATED PO SCH (09:07)
[2017-04-16] MEDS: FLUTICASONE NASAL SPRAY 50 MCG/SPRY 120 SPRAY/16 GM NASL SCH (09:07)
[2017-04-16] MEDS ORDERED: FUROSEMIDE 40 MG TABLET PO SCH (10:00)
[2017-04-16] MEDS ORDERED: FUROSEMIDE INJ/PF 40 MG/4 ML SDV IV ONE (11:49)
--- NOTE | 2017-04-16 12:53 | PDOC PROGRESS REPORT ---
Subjective Progress Note for:: 04/16/17 Subjective:: The patient is a 67-year-old male with a past medical history of hypertension, diabetes, coronary artery disease status post stents in 2012 who was admitted on 04/10/17 with sepsis secondary to pneumonia following viral illness and abdominal pain. The patient is seen on morning rounds. He is sleeping, but wakes easily. He is currently on room air. He is noted to be fatigued and quickly falls back to sleep in conversation. He denies cough, dyspnea, orthopnea, chest pain, palpitations. He is primary complaint today continues to be his left lower leg which he states is actually worsened. He also complains of worsening edema and erythema. Reason For Visit: SEPSIS,PNEUMONIA,ABDOMINAL PAIN Physical Exam Vital Signs: Temp Pulse Resp BP Pulse Ox 98.5 F 69 20 143/76 H 90 L 04/16/17 07:19 04/16/17 07:19 04/16/17 07:19 04/16/17 07:19 04/16/17 12:01 Intake & Output 04/15/17 04/16/17 04/17/17 06:59 06:59 06:59 Intake Total 2051 2643 Output Total 2150 2100 Balance -99 543 Weight 133.8 kg 138.3 kg General appearance: PRESENT: no acute distress, obese, well-developed, well- nourished Head exam: PRESENT: atraumatic, normocephalic Eye exam: PRESENT: conjunctiva pink, EOMI, PERRLA. ABSENT: scleral icterus Ear exam: PRESENT: normal external ear exam Mouth exam: PRESENT: moist, tongue midline Neck exam: ABSENT: carotid bruit, JVD, lymphadenopathy, thyromegaly Respiratory exam: PRESENT: clear to auscultation roman, decreased breath sounds - Bibasilar, symmetrical, unlabored. ABSENT: rales, rhonchi, wheezes Cardiovascular exam: PRESENT: RRR, +S1, +S2. ABSENT: diastolic murmur, rubs, systolic murmur Pulses: PRESENT: normal dorsalis pedis pul Vascular exam: PRESENT: normal capillary refill GI/Abdominal exam: PRESENT: normal bowel sounds, soft. ABSENT: distended, guarding, mass, organolmegaly, rebound, tenderness Rectal exam: PRESENT: deferred Extremities exam: PRESENT: full ROM, +1 edema - Bilateral lower extremities. ABSENT: calf tenderness, clubbing, pedal edema Neurological exam: PRESENT: alert, awake, oriented to person, oriented to place , oriented to time, oriented to situation, CN II-XII grossly intact. ABSENT: motor sensory deficit Psychiatric exam: PRESENT: appropriate affect, normal mood. ABSENT: homicidal ideation, suicidal ideation Skin exam: PRESENT: dry, erythema - Circumferential erythema to the distal left lower extremity; worsened from yesterday, intact, warm. ABSENT: cyanosis, rash Results Laboratory Results: 04/16/17 04:52 04/16/17 04:52 04/16/17 04/16/17 04:52 04:52 WBC 7.4 RBC 3.62 L Hgb 10.0 L Hct 30.8 L MCV 85 MCH 27.5 MCHC 32.3 RDW 14.8 H Plt Count 155 Sodium 138.1 Potassium 4.4 Chloride 107 Carbon Dioxide 24 Anion Gap 7 BUN 26 H Creatinine 1.77 H Est GFR ( Amer) 47 L Est GFR (Non-Af Amer) 38 L Glucose 109 Calcium 8.7 04/13/17 17:30 Nasophary ([facility] Only) MRSA Surveillance Culture - Final NO MRSA RECOVERED 04/10/17 04/10/17 04/11/17 16:58 21:35 03:00 Troponin I 0.013 0.014 < 0.012 NT-Pro-B Natriuret Pep 04/13/17 04:25 Troponin I NT-Pro-B Natriuret Pep 407 Impressions: Chest X-Ray 04/10/17 10:11 IMPRESSION: STREAKY DENSITY IN THE RIGHT LOWER LOBE, PROBABLY ATELECTASIS ALTHOUGH EARLY INFILTRATE ANOTHER POSSIBILITY. Abdomen/Pelvis CT 04/10/17 15:21 IMPRESSION: NO SIGNIFICANT OR ACUTE PROCESS IN THE ABDOMEN OR PELVIS. Renal Ultrasound 04/13/17 00:00 IMPRESSION: No hydronephrosis. Assessment & Plan - Diagnosis (1) Pneumonia Qualifiers: Pneumonia type: due to unspecified organism Laterality: right Lung location: lower lobe of lung Qualified Code(s): J18.1 - Lobar pneumonia, unspecified organism Is this a current diagnosis for this admission?: Yes Plan: Resolved. Pneumonia, likely opportunistic following a viral illness as evidenced by flulike symptoms, fever, chills, nonproductive cough, acidosis, and chest x-ray demonstrates a right lower lobe infiltrate. Blood culture: 1 bottle with group C beta Streptococcus. Other bottle has no growth 4 days. Repeat set of blood cultures obtained 04/12 have no growth at 48 hours. MRSA screening is negative. Initially treated with Azactam, Zyvox, and Levaquin; these antibiotics have been completed/discontinued Supplemental oxygen as needed to keep oxygen saturations greater than 92%; patient is currently maintaining oxygen saturations while on room air. BiPAP nightly. The patient is provided DuoNeb treatments 6 hours as needed. We will encourage incentive spirometry hourly while awake and increased mobility. (2) Sepsis Qualifiers: Sepsis type: sepsis due to unspecified organism Qualified Code(s): A41.9 - Sepsis, unspecified organism Is this a current diagnosis for this admission?: Yes Plan: Resolved, leukocytosis resolved, PLT trending up, vital signs normal. The patient presented with sepsis secondary to a pneumonia that was present on admission evidenced by leukocytosis greater than 20,000, temperature of 101.4, tachypnea with a rate of 28, and acute renal failure with a creatinine of 1.59. The patient is admitted to [facility] on continuous cardiac telemetry. Blood cultures and antibiotics as above. The patient has received adequate IV fluid resuscitation; IVF have been discontinued. (3) Accelerated hypertension Is this a current diagnosis for this admission?: Yes Plan: Blood pressures are adequately controlled. We will continue the patient's home dose of Norvasc and diltiazem. Have resumed the patient's home dose furosemide. IV hydralazine as needed to maintain blood pressures. Placed on a cardiac diet. (4) Acute renal failure (ARF) Plan: Improving. There is likely a component of chronic kidney disease given the patient has a history of hypertension and diabetes. He has had acute renal failure in the past. Baseline kidney function likely exacerbated by hypoperfusion during sepsis illness. Renal ultrasound completed yesterday; no abnormal findings. Creatinine continues to improve. We will avoid nephrotoxic medications. We will monitor with serial chemistries. (5) Coronary artery disease Qualifiers: Coronary Disease-Associated Artery/Lesion type: [place] artery [place] vs. transplanted heart: [place] heart Associated angina: angina presence unspecified Qualified Code(s): I25.10 - Atherosclerotic heart disease of [place] coronary artery without angina pectoris Is this a current diagnosis for this admission?: Yes Plan: The patient is status post stents 4 years ago. He complained of chest pressure upon admission which has since resolved. Initial EKG as well as follow-up EKG this morning demonstrates sinus rhythm without acute changes. There is no evidence of ST segment depression or elevation. Troponins have trended downward. We will continue daily aspirin and initiate low-dose statin therapy. (6) Cellulitis of left lower leg Is this a current diagnosis for this admission?: Yes Plan: Continued improved appearance today. Blood cultures as above. Worsened today; reviewed microbiology and antibiotics with pharmacist. Will discontinue Azactam. Start IV clindamycin for improved coverage of Streptococcus and staph. Discussed with nursing the importance of keeping the extremity elevated. We will trial CHI hose if patient's pain tolerance allows. (7) Left leg pain Is this a current diagnosis for this admission?: Yes Plan: Secondary to cellulitis. Venous doppler has ruled out DVT. Plan as above. (8) Diastolic CHF Qualifiers: Heart failure chronicity: chronic Qualified Code(s): I50.32 - Chronic diastolic (congestive) heart failure Is this a current diagnosis for this admission?: Yes Plan: Echocardiogram from July 2015 demonstrates moderate diastolic dysfunction. Diuresing well; weight is down. ProBNP was 701 on admission; actually improved to 407. IVF have been discontinued. Continue the patient's home dose furosemide. (9) Sciatica Qualifiers: Laterality: left Qualified Code(s): M54.32 - Sciatica, left side Is this a current diagnosis for this admission?: No Plan: Leg pain has been determined not to be related to sciatica. (10) Abdominal pain Qualifiers: Abdominal location: lower abdomen, unspecified Qualified Code(s): R10.30 - Lower abdominal pain, unspecified Is this a current diagnosis for this admission?: Yes Plan: Resolved; bilateral lower abdominal pain of unclear etiology during acute illness presentation. Patient denies abdominal pain currently. He denies nausea, vomiting, diarrhea, constipation. CT of the abdomen and pelvis was benign. We will continue to monitor and provide supportive care. (11) Obstructive sleep apnea Is this a current diagnosis for this admission?: Yes Plan: BiPAP qHS. Encouraged daytime use for naps. Recommend outpatient overnight sleep study. - Time Time Spent with patient: 35 or more minutes Medications reviewed and adjusted accordingly: Yes Anticipated discharge: Home Within: within 48 hours
[2017-04-16] MEDS: INSULIN LISPRO 100 UNIT/ML 3 ML VIAL SUBCUT PRN (12:55)
[2017-04-16] MEDS: CLINDAMYCIN 900 MG/D5W RTU 50 ML IV SCH ×2 (13:43→21:20)
[2017-04-16] MEDS ORDERED: FUROSEMIDE 20 MG TABLET PO SCH (14:00)
[2017-04-16] MEDS: ACETAMINOPHEN 325 MG TABLET PO PRN (20:39)
[2017-04-16] MEDS: ATORVASTATIN CALCIUM 10 MG TABLET PO SCH (21:19)
[2017-04-17 05:10] LABS: ABSOLUTE EOSINOPHILS # (AUTO) 0.2 10^3/uL (0.0-0.6); ABSOLUTE LYMPHOCYTES (AUTO) 2.6 10^3/uL (0.5-4.7); ABSOLUTE MONOCYTES (AUTO) 1.3 10^3/uL (0.1-1.4); ABSOLUTE NEUT (AUTO) 4.1 10^3/uL (1.7-8.2); BASOPHILS % (AUTO) 0.2 % (0-2); HEMATOCRIT 31.6 % (37.9-51.0); HEMOGLOBIN 10.3 g/dL (13.5-17.0); LYMPHOCYTES % (AUTO) 31.1 % (13-45); MEAN CORPUSCULAR HEMOGLOBIN 27.8 pg (27.0-33.4); MEAN CORPUSCULAR HGB CONC 32.7 g/dL (32.0-36.0); MEAN CORPUSCULAR VOLUME 85 fl (80-97); MONOCYTES % (AUTO) 16.1 % (3-13); PLATELET COUNT 164 10^3/uL (150-450); RED BLOOD COUNT 3.72 10^6/uL (4.35-5.55); RED CELL DISTRIBUTION WIDTH 14.7 % (11.5-14.0); SEGMENTED NEUTROPHILS % (AUTO) 49.6 % (42-78); TOTAL CELLS COUNTED % (AUTO) 100 %; WHITE BLOOD COUNT 8.2 10^3/uL (4.0-10.5)
[2017-04-17 05:28] LABS: ANION GAP 10 (5-19); BLOOD UREA NITROGEN 19 mg/dL (7-20); CALCIUM 8.5 mg/dL (8.4-10.2); CARBON DIOXIDE 26 mmol/L (22-30); CHLORIDE 106 mmol/L (98-107); GLUCOSE 99 mg/dL (75-110); POTASSIUM 3.8 mmol/L (3.6-5.0); SODIUM 141.5 mmol/L (137-145)
[2017-04-17] MEDS: CLINDAMYCIN 900 MG/D5W RTU 50 ML IV SCH ×3 (05:31→21:37)
[2017-04-17] MEDS: SODIUM CHLORIDE NASAL SPRAY 44 ML NASL SCH ×4 (07:48→21:37)
[2017-04-17] MEDS: ENOXAPARIN SODIUM INJ 40 MG/0.4 ML DISP.SYRIN SUBCUT SCH (07:48)
[2017-04-17] MEDS: CITALOPRAM HYDROBROMIDE 20 MG TABLET PO SCH (09:22)
[2017-04-17] MEDS: CARVEDILOL 12.5 MG TABLET PO SCH ×2 (09:22→21:37)
[2017-04-17] MEDS: FUROSEMIDE 40 MG TABLET PO SCH (09:23)
[2017-04-17] MEDS: ASPIRIN 81 MG TABLET, ENT COATED PO SCH (09:23)
[2017-04-17] MEDS: FLUTICASONE NASAL SPRAY 50 MCG/SPRY 120 SPRAY/16 GM NASL SCH (09:23)
[2017-04-17] MEDS: AMLODIPINE BESYLATE 10 MG TABLET PO SCH (09:23)
[2017-04-17] MEDS: INSULIN GLARGINE,HUM.REC.ANLOG 300 UNIT/3 ML INSULN.PEN SUBCUT SCH (09:23)
--- NOTE | 2017-04-17 17:08 | PDOC PROGRESS REPORT ---
Subjective Progress Note for:: 04/17/17 Subjective:: RAJAT DANIEL is a 67 year old male with a PMH of HTN, DM, CAD s/p stents in 2012 who was admitted on 04/10/2017 with sepsis secondary to PNA following viral illness and abdominal pain. His primary complaint is now LLE cellulitis, for which he is on IV clindamycin. The patient is seen on morning rounds, he is awake, oriented, and participatory in care. The patient complains of mild pain to his left lower leg, which is exacerbated by palpation. The patient states there has been no change in his pain level, it has remained constant over the last 24hrs with moderate relief from pain medication. Per nursing staff the edema and erythema have improved, although he did not tolerate CHI stockings which were attempted yesterday. Reason For Visit: SEPSIS,PNEUMONIA,ABDOMINAL PAIN Physical Exam Vital Signs: Temp Pulse Resp BP Pulse Ox 98.8 F 81 20 152/71 H 90 L 04/17/17 12:19 04/17/17 13:59 04/17/17 12:19 04/17/17 12:19 04/17/17 12:19 Intake & Output 04/16/17 04/17/17 04/18/17 06:59 06:59 06:59 Intake Total 2643 1880 458 Output Total 2100 3730 400 Balance 543 -1850 58 Weight 138.3 kg 132.7 kg General appearance: PRESENT: morbidly obese Head exam: PRESENT: atraumatic, normocephalic Eye exam: PRESENT: conjunctiva pink, EOMI, PERRLA. ABSENT: scleral icterus Mouth exam: PRESENT: moist, tongue midline Respiratory exam: PRESENT: clear to auscultation roman Cardiovascular exam: PRESENT: +S1, +S2 Pulses: PRESENT: normal radial pulses, +2 pedal pulses bilateral Vascular exam: PRESENT: normal capillary refill Rectal exam: PRESENT: deferred Extremities exam: PRESENT: tenderness, other - erythema to ANTERIOR aspect of LLE. +TTP Musculoskeletal exam: PRESENT: ambulatory - patient is able to ambulate to the restroom and in/around his room Neurological exam: PRESENT: alert, awake, oriented to person, oriented to place , oriented to time Psychiatric exam: PRESENT: appropriate affect Skin exam: PRESENT: erythema - LLE Results Laboratory Results: 04/17/17 04:21 04/17/17 04:21 04/17/17 04/17/17 04:21 04:21 WBC 8.2 RBC 3.72 L Hgb 10.3 L Hct 31.6 L MCV 85 MCH 27.8 MCHC 32.7 RDW 14.7 H Plt Count 164 Seg Neutrophils % 49.6 Lymphocytes % 31.1 Monocytes % 16.1 H Eosinophils % 3.0 Basophils % 0.2 Absolute Neutrophils 4.1 Absolute Lymphocytes 2.6 Absolute Monocytes 1.3 Absolute Eosinophils 0.2 Absolute Basophils 0.0 Sodium 141.5 Potassium 3.8 Chloride 106 Carbon Dioxide 26 Anion Gap 10 BUN 19 Creatinine 1.47 H Est GFR ( Amer) 58 L Est GFR (Non-Af Amer) 48 L Glucose 99 Calcium 8.5 04/12/17 13:47 Blood Blood Culture - Final NO GROWTH IN 5 DAYS 04/12/17 11:15 Blood Blood Culture - Final NO GROWTH IN 5 DAYS 04/10/17 04/10/17 04/11/17 16:58 21:35 03:00 Troponin I 0.013 0.014 < 0.012 NT-Pro-B Natriuret Pep 04/13/17 04:25 Troponin I NT-Pro-B Natriuret Pep 407 Impressions: Chest X-Ray 04/10/17 10:11 IMPRESSION: STREAKY DENSITY IN THE RIGHT LOWER LOBE, PROBABLY ATELECTASIS ALTHOUGH EARLY INFILTRATE ANOTHER POSSIBILITY. Abdomen/Pelvis CT 04/10/17 15:21 IMPRESSION: NO SIGNIFICANT OR ACUTE PROCESS IN THE ABDOMEN OR PELVIS. Renal Ultrasound 04/13/17 00:00 IMPRESSION: No hydronephrosis. Status: Imported from PACS Assessment & Plan - Diagnosis (1) Cellulitis of left lower leg Is this a current diagnosis for this admission?: Yes Plan: Improving. Continue clindamycin for improved coverage of Streptococcus and staph. Keep extremity elevated. Will attempt larger size CHI hose again (2) ARF (acute renal failure) Qualifiers: Acute renal failure type: unspecified Qualified Code(s): N17.9 - Acute kidney failure, unspecified Is this a current diagnosis for this admission?: Yes Plan: Likely acute on chronic kidney disease given the patient's history of hypertension and diabetes. The patient has a history of acute renal failure. Baseline kidney function likely exacerbated by hypoperfusion during sepsis. Renal ultrasound completed, no abnormal findings. Creatinine continues to improve. Patient making more than adequate urine output . Avoid nephrotoxic medications. (3) Left leg pain Is this a current diagnosis for this admission?: Yes Plan: Secondary to cellulitis. Venous Doppler has ruled out DVT. Plan as above. (4) TIM (obstructive sleep apnea) Is this a current diagnosis for this admission?: Yes Plan: BiPAP at night and during daytime naps. Recommend outpatient overnight sleep study. (5) Hypertension Qualifiers: Hypertension type: unspecified secondary hypertension Qualified Code(s): I15.9 - Secondary hypertension, unspecified; I15 - Secondary hypertension Is this a current diagnosis for this admission?: Yes Plan: Controlled. Continue patient's home dose of Norvasc and diltiazem. Continue patient's home dose of furosemide. As needed IV hydralazine for SBP > 180. Cardiac diet (6) Pneumonia Qualifiers: Pneumonia type: due to unspecified organism Laterality: right Lung location: lower lobe of lung Qualified Code(s): J18.1 - Lobar pneumonia, unspecified organism Is this a current diagnosis for this admission?: Yes Plan: Resolved. Likely opportunistic infection following a viral illness. Chest x- ray demonstrated a right lower lobe infiltrate. Blood cultures: 1 bottle group C beta Streptococcus. Other bottles have no growth. Repeat set of cultures obtained 04/12 have on growth. MRSA screening negative. Completed course of antibiotics for pneumonia. Maintaining oxygen saturations well on room air during the day. BiPAP at night. Continue DuoNeb treatments every 6 hours as needed. Encourage incentive spirometry while awake. Encourage mobility (7) Sepsis Qualifiers: Sepsis type: sepsis due to unspecified organism Qualified Code(s): A41.9 - Sepsis, unspecified organism Is this a current diagnosis for this admission?: Yes Plan: Resolved. Leukocytosis resolved. Platelet trending up. Vital signs within normal range. Blood cultures and antibiotics as above. IV fluids have been discontinued at this time as patient is able to get adequate intake from p.o. fluids. (8) Coronary artery disease Qualifiers: Coronary Disease-Associated Artery/Lesion type: [place] artery [place] vs. transplanted heart: [place] heart Associated angina: angina presence unspecified Qualified Code(s): I25.10 - Atherosclerotic heart disease of [place] coronary artery without angina pectoris Is this a current diagnosis for this admission?: Yes Plan: Status post stents in 2013. Patient initially complained of chest pressure upon admission, initial EKG and follow-up EKG demonstrates sinus rhythm without acute changes. No longer trending troponins. Continue daily aspirin and low- dose statin therapy. (9) Sciatica Qualifiers: Laterality: left Qualified Code(s): M54.32 - Sciatica, left side Is this a current diagnosis for this admission?: No Plan: Leg pain has been determined not to be related to sciatica (10) Abdominal pain Qualifiers: Abdominal location: lower abdomen, unspecified Qualified Code(s): R10.30 - Lower abdominal pain, unspecified Is this a current diagnosis for this admission?: Yes Plan: Patient complained of lower abdominal pain during initial presentation. Unclear etiology. Patient currently denies abdominal pain, denies nausea, vomiting, diarrhea, constipation. CT of the abdomen and pelvis was benign. (11) Diastolic CHF Qualifiers: Heart failure chronicity: chronic Qualified Code(s): I50.32 - Chronic diastolic (congestive) heart failure Is this a current diagnosis for this admission?: Yes Plan: Echocardiogram from July 2015 demonstrate moderate diastolic dysfunction. Diuresing well. Continue patient's home dose of furosemide. ProBNP on admission was 701, has improved to 407. - Time Time Spent with patient: 15-24 minutes Anticipated discharge: Home with Homehealth Within: within 48 hours - Inpatient Certification Based on my medical assessment, after consideration of the patient's comorbidities, presenting symptoms, or acuity I expect that the services needed warrant INPATIENT care.: Yes I certify that my determination is in accordance with my understanding of Medicare's requirements for reasonable and necessary INPATIENT services [42 CFR 412.3e].: Yes Medical Necessity: Risk of Complication if Not Cared For in Hospital - Plan Summary Plan Summary: discharge home
[2017-04-17] MEDS: ATORVASTATIN CALCIUM 10 MG TABLET PO SCH (21:37)
[2017-04-18] MEDS: CLINDAMYCIN 900 MG/D5W RTU 50 ML IV SCH ×2 (05:03→13:49)
[2017-04-18 06:52] LABS: ANION GAP 9 (5-19); BLOOD UREA NITROGEN 15 mg/dL (7-20); CALCIUM 8.7 mg/dL (8.4-10.2); CARBON DIOXIDE 28 mmol/L (22-30); CHLORIDE 105 mmol/L (98-107); GLUCOSE 82 mg/dL (75-110); PHOSPHORUS 3.6 mg/dL (2.5-4.5); POTASSIUM 3.8 mmol/L (3.6-5.0)
[2017-04-18 09:16] LABS: HEMATOCRIT 32.3 % (37.9-51.0); HEMOGLOBIN 10.7 g/dL (13.5-17.0); MEAN CORPUSCULAR HEMOGLOBIN 27.8 pg (27.0-33.4); MEAN CORPUSCULAR HGB CONC 33.1 g/dL (32.0-36.0); MEAN CORPUSCULAR VOLUME 84 fl (80-97); PLATELET COUNT 167 10^3/uL (150-450); RED BLOOD COUNT 3.85 10^6/uL (4.35-5.55); RED CELL DISTRIBUTION WIDTH 15.2 % (11.5-14.0); WHITE BLOOD COUNT 8.9 10^3/uL (4.0-10.5)
[2017-04-18 09:54] LABS: ABSOLUTE LYMPHOCYTES# (MANUAL) 3.6 10^3/uL (0.5-4.7); ABSOLUTE MONOCYTES # (MANUAL) 0.9 10^3/uL (0.1-1.4); ABSOLUTE NEUTROPHILS# (MANUAL) 3.8 10^3/uL (1.7-8.2); ANISOCYTOSIS SLIGHT; BASOPHILS % (MANUAL) 0 % (0-2); EOSINOPHILS % (MANUAL) 6 % (0-6); LYMPHOCYTES % (MANUAL) 41 % (13-45); MONOCYTES % (MANUAL) 10 % (3-13); POLYCHROMASIA SLIGHT; SEGMENTED NEUTROPHILS % (MAN) 43 % (42-78); TOTAL CELLS COUNTED 100; TOXIC GRANULATION SLIGHT
[2017-04-18 09:55] LABS: PLATELET COMMENT ADEQUATE; TOXIC VACUOLATION PRESENT
[2017-04-18] MEDS: AMLODIPINE BESYLATE 10 MG TABLET PO SCH (10:26)
[2017-04-18] MEDS: ASPIRIN 81 MG TABLET, ENT COATED PO SCH (10:26)
[2017-04-18] MEDS: CARVEDILOL 12.5 MG TABLET PO SCH (10:26)
[2017-04-18] MEDS: CITALOPRAM HYDROBROMIDE 20 MG TABLET PO SCH (10:26)
[2017-04-18] MEDS: FUROSEMIDE 40 MG TABLET PO SCH (10:27)
[2017-04-18] MEDS: SODIUM CHLORIDE NASAL SPRAY 44 ML NASL SCH ×3 (10:27→17:35)
[2017-04-18] MEDS: ENOXAPARIN SODIUM INJ 40 MG/0.4 ML DISP.SYRIN SUBCUT SCH (10:27)
[2017-04-18] MEDS: FLUTICASONE NASAL SPRAY 50 MCG/SPRY 120 SPRAY/16 GM NASL SCH (10:33)
[2017-04-18] MEDS: INSULIN GLARGINE,HUM.REC.ANLOG 300 UNIT/3 ML INSULN.PEN SUBCUT SCH (10:36)
[2017-04-18] MEDS: INSULIN LISPRO 100 UNIT/ML 3 ML VIAL SUBCUT PRN (17:34)
[2017-04-18 17:39] VITALS: BP 122/60
--- NOTE | 2017-04-19 07:42 | PDOC DISCHARGE SUMMARY ---
General - Admit/Disc Date/PCP Admission Date/Primary Care Provider: 04/10/17 13:26 FRANCINE RIVERA MD Discharge Date: 04/18/17 - Discharge Diagnosis (1) Cellulitis of left lower leg Is this a current diagnosis for this admission?: Yes Summary: Cellulitis secondary to diabetic ulcer on anteriolateral LLE. Patient was treated with IV clindamycin and instructed to keep leg elevated when sitting and overnight when sleeping. Patient discharged with PO clindamycin and instructed to follow up at the [place] clinic once he finishes his course of antibiotics. (2) ARF (acute renal failure) Is this a current diagnosis for this admission?: Yes Summary: Likely acuteon chronic renal disease given the patient's history of HTN and DM. The patient has a PMH of ARF. Baseline kidney function likely exacerbated by HYPOperfusion during sepsis. Renal ultrasound completed, no abnormal findings. Creatinine improved as sepsis cleared. (3) Left leg pain Is this a current diagnosis for this admission?: Yes Summary: LLE pain secondary to cellulitis, venous doppler ruled out DVT. Cellulitis treated with IV clindamycin for strep and staph coverage. (4) TIM (obstructive sleep apnea) Is this a current diagnosis for this admission?: Yes Summary: Secondary to morbid obesity. Patient was instructed to use BIPAP at night and during the day when napping. (5) Hypertension Is this a current diagnosis for this admission?: Yes Summary: Once sepsis was resolved and patient was resuscitated with IV fluids, he was restarted on his home antihypertensives. Additionally, patient was restarted on home does of Lasix. (6) Pneumonia Is this a current diagnosis for this admission?: Yes Summary: RLL PNA as evidence by infiltrate seen on chest xray. The patient initially complained of general malaise and SOB following 24 hours of flu like symptoms. 04/10 Blood culture: 1 bottle +group C beta streptococcus. Other bottle no growth 04/12 Repeat blood cultures: no growth MRSA screening negative Initially treated with azactam, Zyvox, and Levaquin. Completed treatment course of antibiotics for PNA prior to discharge. (7) Sepsis Is this a current diagnosis for this admission?: Yes Summary: Sepsis secondary to PNA as evidence by WBC > 20,000, thrombocytopenia, respiratory rate > 20, temperature 101.4, acute renal failure with creatinine 1.59, and RLL infiltrate seen on chest xray. Blood cultures and antibiotics as above. Patient was initially resuscitated with IV fluids, which were ultimatley discontinued when the patient was able to get adequate intake from PO fluids. (8) Coronary artery disease Is this a current diagnosis for this admission?: Yes Summary: The patient is status post stents from 2013. He complained of chest pain upon arrival. EKG and cardiac enzymes were negative for acute ischemia or infarct. Patient was treated with aspirin and started on low dose statin therapy. (9) Sciatica Is this a current diagnosis for this admission?: No Summary: leg pain was determined not to be sciatica (10) Abdominal pain Is this a current diagnosis for this admission?: Yes Summary: Patient c/o lower abdominal pain upon admission, CT abdomen and pelvis was benign. The lower abdominal pain resolved on it's own. Patient denies abdominal pain prior to discharge (11) Diastolic CHF Is this a current diagnosis for this admission?: Yes Summary: Echocardiogram from demonstrated mild diastolic dysfunction. ProBNP on admission was 701, prior to discharge it was 407. Once sepsis was resolved, the patient was placed back on his home dose of Lasix. Tolerated well. Lower extremity swelling decreased significantly, prior to discharge the patient was able to ambulate. - Additional Information Resuscitation Status: Full Code Discharge Diet: As Tolerated, Cardiac, Diabetic Discharge Activity: Activity As Tolerated, Balance Activity w/Rest Prescriptions: Atorvastatin Calcium [Lipitor 10 mg Tablet] 10 mg PO QHS #30 tablet Clindamycin HCl [Cleocin HCl] 600 mg PO Q8H 7 Days #21 capsule Home Medications: Amlodipine Besylate [Norvasc 5 mg Tablet] 5 mg PO DAILY 04/10/17 Aspirin [Adult Low Dose Aspirin EC] 81 mg PO DAILY 04/10/17 Carvedilol [Coreg 25 mg Tablet] 25 mg PO Q12 04/10/17 Citalopram Hydrobromide [Celexa 40 mg Tablet] 40 mg PO DAILY 04/10/17 Furosemide [Lasix 20 mg Tablet] 20 mg PO BID 04/10/17 Insulin Glargine,Hum.rec.anlog [Lantus Insulin 100 Unit/1 ml 10 ml] 50 units SQ QHS 04/10/17 Lactobacillus Combination No.4 [Probiotic] 1 cap PO DAILY 04/10/17 Potassium Chloride [K-Tab ER] 20 meq PO QAM 04/10/17 Tramadol HCl [Ultram 50 mg Tablet] 50 mg PO Q8HP PRN 04/10/17 Atorvastatin Calcium [Lipitor 10 mg Tablet] 10 mg PO QHS #30 tablet 04/18/17 Clindamycin HCl [Cleocin HCl] 600 mg PO Q8H 7 Days #21 capsule 04/18/17 History of Present Illness Patient complains of: difficulty breathing and LLE cellulitis History of Present Illness: RAJAT DANIEL is a 67 year old male with a PMH of HTN, DM, CAD s/p stents in 2012 who was admitted on 04/10 with sepsis secondary to PNA following viral illness, as evidence by WBC 20,000, chest xray shows RLL infiltrate. Patient also complained of lower abdominal pain and LLE redness and swelling. See above for assessment and plan Hospital Course Hospital Course: Patient was originally admitted for PNA, likely opportunistic following viral illness as evidenced by flulike symptoms, fever, chills, nonproductive cough, acidosis, and chest xray demonstrates a RLL infiltrate. Blood cultures upon admission were positive for group C beta streptococcus. MRSA screening negative. Initially treated with Azactam, Zyvox, and Levaquin for PNA, completed course of antibiotics. Patient continued to complain of LLE redness and swelling, treated with IV clindamycin for Strep & Staph coverage. Discharged home on PO clindamycin and instructed to follow up with [place] after finishing course of antibiotics. Physical Exam Vital Signs: Temp Pulse Resp BP Pulse Ox 99.6 F 73 18 122/60 90 L 04/18/17 17:37 04/18/17 17:37 04/18/17 17:37 04/18/17 17:37 04/18/17 17:37 Intake & Output 04/17/17 04/18/17 04/19/17 06:59 06:59 06:59 Intake Total 1880 1474 459 Output Total 6020 2350 1100 Balance -2630 -876 -171 Weight 132.7 kg 136.4 kg 136.4 kg General appearance: PRESENT: no acute distress GI/Abdominal exam: PRESENT: normal bowel sounds, soft Rectal exam: PRESENT: deferred Extremities exam: PRESENT: full ROM, tenderness - RLE erythema - anterior Musculoskeletal exam: PRESENT: full ROM Neurological exam: PRESENT: alert, awake, oriented to person, oriented to place , oriented to time Skin exam: PRESENT: erythema Results Laboratory Results: 04/18/17 04:49 04/18/17 04:49 04/18/17 04/18/17 04:49 04:49 WBC 8.9 RBC 3.85 L Hgb 10.7 L Hct 32.3 L MCV 84 MCH 27.8 MCHC 33.1 RDW 15.2 H Plt Count 167 Seg Neutrophils % Not Reportable Lymphocytes % Not Reportable Monocytes % Not Reportable Eosinophils % Not Reportable Basophils % Not Reportable Absolute Neutrophils Not Reportable Absolute Lymphocytes Not Reportable Absolute Monocytes Not Reportable Absolute Eosinophils Not Reportable Absolute Basophils Not Reportable Sodium 142.0 Potassium 3.8 Chloride 105 Carbon Dioxide 28 Anion Gap 9 BUN 15 Creatinine 1.35 H Est GFR ( Amer) > 60 Est GFR (Non-Af Amer) 53 L Glucose 82 Calcium 8.7 Phosphorus 3.6 Magnesium 1.8 04/10/17 04/10/17 04/11/17 16:58 21:35 03:00 Troponin I 0.013 0.014 < 0.012 NT-Pro-B Natriuret Pep 04/13/17 04:25 Troponin I NT-Pro-B Natriuret Pep 407 Impressions: Chest X-Ray 04/10/17 10:11 IMPRESSION: STREAKY DENSITY IN THE RIGHT LOWER LOBE, PROBABLY ATELECTASIS ALTHOUGH EARLY INFILTRATE ANOTHER POSSIBILITY. Abdomen/Pelvis CT 04/10/17 15:21 IMPRESSION: NO SIGNIFICANT OR ACUTE PROCESS IN THE ABDOMEN OR PELVIS. Renal Ultrasound 04/13/17 00:00 IMPRESSION: No hydronephrosis. Status: Imported from PACS Qualifiers - * PATEINT BEING DISCHARGED WITH ANY OF THE FOLLOWING DIAGNOSIS?: No Plan Discharge Plan: Discharge home on antibiotics and follow up with [place] clinic
== END 2017-04-18 18:09 | disposition home or self-care (01) | DRG 871 ==
LOC: ER 09:43 → UNDOADMIN 13:26 → EH 13:26 → 3W 04-11 14:24
PROVIDERS: ADMIT Emergency Medicine; ATTEND Emergency Medicine
PROC: 3E0F73Z Introduction of Anti-inflammatory into Respiratory Tract, Via Natural or Artificial Opening (ICD-10-PCS; 2017-04-11)
PROC: 5A09457 Assistance with Respiratory Ventilation, 24-96 Consecutive Hours, Continuous Positive Airway Pressure (ICD-10-PCS; principal; 2017-04-13)
DX: A40.8 Other streptococcal sepsis (principal); J18.9 Pneumonia, unspecified organism; I13.0 Hypertensive heart and chronic kidney disease with heart failure and stage 1 through stage 4 chronic kidney disease, or unspecified chronic kidney disease; I50.32 Chronic diastolic (congestive) heart failure; L03.116 Cellulitis of left lower limb; N17.9 Acute kidney failure, unspecified; E11.628 Type 2 diabetes mellitus with other skin complications; E11.22 Type 2 diabetes mellitus with diabetic chronic kidney disease; N18.9 Chronic kidney disease, unspecified; G47.33 Obstructive sleep apnea (adult) (pediatric); I25.10 Atherosclerotic heart disease of native coronary artery without angina pectoris; Z95.5 Presence of coronary angioplasty implant and graft; M54.32 Sciatica, left side; I25.2 Old myocardial infarction; M19.90 Unspecified osteoarthritis, unspecified site; F43.10 Post-traumatic stress disorder, unspecified; F32.9 Major depressive disorder, single episode, unspecified; F41.9 Anxiety disorder, unspecified; Z88.0 Allergy status to penicillin; Z79.4 Long term (current) use of insulin
CPT/HCPCS: 36415; 36600; 71046; 74176; 76770; 80048; 80053; 80061; 81001; 82550; 82553; 82803; 82962; 83605; 83690; 83735; 83880; 84100; 84439; 84443; 84484; 85025; 85027; 87040; 87077; 87186; 93005; 93010; 93971; 94640; 94660; 94799; 96360; 99285; J0360; J1650; J1815; J1885; J1940; J1956; J2020; J2405; J3490; J7030; J7620; S0164

== ENCOUNTER → 2017-05-11 | Outpatient (CLI) | payer MEDICARE, OTHER ==
[2017-05-11 11:07] LABS: ABSOLUTE EOSINOPHILS # (AUTO) 0.6 10^3/uL (0.0-0.6); ABSOLUTE LYMPHOCYTES (AUTO) 2.6 10^3/uL (0.5-4.7); ABSOLUTE NEUT (AUTO) 3.5 10^3/uL (1.7-8.2); BASOPHILS % (AUTO) 0.4 % (0-2); EOSINOPHILS % (AUTO) 7.6 % (0-6); HEMATOCRIT 36.7 % (37.9-51.0); HEMOGLOBIN 11.8 g/dL (13.5-17.0); LYMPHOCYTES % (AUTO) 33.3 % (13-45); MEAN CORPUSCULAR HEMOGLOBIN 27.4 pg (27.0-33.4); MEAN CORPUSCULAR HGB CONC 32.3 g/dL (32.0-36.0); MEAN CORPUSCULAR VOLUME 85 fl (80-97); MONOCYTES % (AUTO) 13.7 % (3-13); PLATELET COUNT 152 10^3/uL (150-450); RED BLOOD COUNT 4.32 10^6/uL (4.35-5.55); TOTAL CELLS COUNTED % (AUTO) 100 %; WHITE BLOOD COUNT 7.7 10^3/uL (4.0-10.5)
[2017-05-11 11:32] LABS: ALANINE AMINOTRANSFERASE 65 U/L (21-72); ALKALINE PHOSPHATASE 95 U/L (38-126); ANION GAP 11 (5-19); ASPARTATE AMINO TRANSFERASE 71 U/L (17-59); BILIRUBIN,DIRECT 0.4 mg/dL (0.0-0.4); BILIRUBIN,TOTAL 0.4 mg/dL (0.2-1.3); BLOOD UREA NITROGEN 27 mg/dL (7-20); CALCIUM 9.4 mg/dL (8.4-10.2); CARBON DIOXIDE 26 mmol/L (22-30); CHLORIDE 108 mmol/L (98-107); GLUCOSE 93 mg/dL (75-110); POTASSIUM 4.7 mmol/L (3.6-5.0); SODIUM 144.5 mmol/L (137-145); TOTAL PROTEIN 8.1 g/dL (6.3-8.2)
[2017-05-11 11:36] LABS: C-REACTIVE PROTEIN < 5.0 mg/L (<10.0)
[2017-05-11 11:47] LABS: ERYTHROCYTE SEDIMENTATION RATE 64 mm/hr (0-20)
== END ==
LOC: OD 10:13
PROVIDERS: ATTEND Orthopaedic Surgery
DX: M25.461 Effusion, right knee (principal)
CPT/HCPCS: 36415; 80053; 85025; 85652; 86140

== ENCOUNTER → 2017-05-15 | Outpatient (CLI) | payer MEDICARE ==
--- NOTE | 2017-05-15 15:31 | RADIOLOGY REPORT (SQ) ---
EXAM DESCRIPTION: NM 3 PHASE BONE SCAN COMPLETED DATE/TIME: 05/15/2017 2:35 pm REASON FOR STUDY: Z96.659 PRESENCE OF UNSPECIFIED ARTIFICIAL KNEE JOINT Z96.659 PRESENCE OF UNSPECI FIED ARTIFICIAL KNEE JOINT COMPARISON: No available imaging studies for comparison. RADIONUCLIDE AND DOSE: 20.1 millicuries Tc99m MDP. The route of agent administration: Intravenous. ADDITIONAL DRUGS AND DOSES: None. TECHNIQUE: Following injection of the radiopharmaceutical, serial blood flow images acquired. Equil ibrium blood pool images then acquired. Routine delayed images at 3 hours acquired of the areas of c linical concern with additional focused images as needed. AREA OF INTEREST: Right knee LIMITATIONS: None. FINDINGS: Blood flow images demonstrate increased flow to the right knee. Blood pool images demonstrate increased activity along the right distal femur and proximal tibia. Delayed images show increased uptake along the right patella, right distal femur, and right proximal tibia adjacent to a total knee replacement. Outside plain films 05/10/2017 demonstrate lucency betwee n the tibial component of the prosthesis in the little shell tribe bone, and a moderate knee joint effusion. Fin dings are worrisome for infection. IMPRESSION: Positive 3 phase bone scan right knee. Increased uptake on blood flow, blood pool, and delayed images. Findings worrisome for infection COMMENT: Quality measure 147: Current bone scan is compared with any available plain radiographs, p rior bone scans, and CT/MRI. TECHNICAL DOCUMENTATION: JOB ID: [id number] [employer]- All Rights Reserved Reading location - IP/workstation name: [email or web address]
== END ==
LOC: RAD 10:56
PROVIDERS: ATTEND Orthopaedic Surgery
DX: T84.53XA Infection and inflammatory reaction due to internal right knee prosthesis, initial encounter (principal); Z96.651 Presence of right artificial knee joint
CPT/HCPCS: 78315; A9561; Q9969

== ENCOUNTER → 2017-06-04 | Outpatient (CLI) | payer MEDICARE ==
[2017-06-04 13:13] LABS: ABSOLUTE EOSINOPHILS # (AUTO) 0.4 10^3/uL (0.0-0.6); ABSOLUTE LYMPHOCYTES (AUTO) 3.3 10^3/uL (0.5-4.7); ABSOLUTE NEUT (AUTO) 3.5 10^3/uL (1.7-8.2); BASOPHILS % (AUTO) 0.2 % (0-2); EOSINOPHILS % (AUTO) 4.8 % (0-6); HEMATOCRIT 37.9 % (37.9-51.0); LYMPHOCYTES % (AUTO) 40.2 % (13-45); MEAN CORPUSCULAR HEMOGLOBIN 27.2 pg (27.0-33.4); MEAN CORPUSCULAR HGB CONC 31.7 g/dL (32.0-36.0); MEAN CORPUSCULAR VOLUME 86 fl (80-97); MONOCYTES % (AUTO) 11.8 % (3-13); PLATELET COUNT 176 10^3/uL (150-450); RED BLOOD COUNT 4.42 10^6/uL (4.35-5.55); RED CELL DISTRIBUTION WIDTH 14.7 % (11.5-14.0); TOTAL CELLS COUNTED % (AUTO) 100 %; WHITE BLOOD COUNT 8.1 10^3/uL (4.0-10.5)
[2017-06-04 13:54] LABS: ERYTHROCYTE SEDIMENTATION RATE 46 mm/hr (0-20)
== END ==
LOC: OD 12:33
PROVIDERS: ATTEND Orthopaedic Surgery
DX: M25.561 Pain in right knee (principal)
CPT/HCPCS: 36415; 85025; 85652; 86140

== ENCOUNTER 2017-06-28 10:50 | Emergency (ER) | payer MEDICARE ==
[2017-06-28 11:02] VITALS: BP 125/74
--- NOTE | 2017-06-28 11:23 | ER Document Report ---
ED Medical Screen (RME) - General Chief Complaint: Flank Pain Stated Complaint: FLANK PAIN Time Seen by Provider: 06/28/17 11:18 Notes: RAPID MEDICAL EVALUATION DISCLOSURE I have seen this patient as part of a Rapid Medical Evaluation and, if applicable, placed any initially appropriate orders. The patient will be seen and fully evaluated, including a full history and physical exam, by a provider ( in Main ED or Fast Track) when a room becomes available. 67-year-old male PMH AAA sent here by the [place] [facility] for [facility] imaging and concern about his mid abdominal pain. He has had mid abdominal pain ongoing for the past 5 days radiating to the right flank with nausea and vomiting but no hematuria dysuria frequency hesitancy fevers chills diarrhea chest pain shortness of breath. Symptoms have been progressively worsening. He has not taken anything for the pain or vomiting. They sent him here for evaluation of his AAA. EXAM Regular rate and rhythm Epigastric and periumbilical TTP Right upper greater than lower quadrant TTP Right flank TTP MDM Sent from clinic for CT imaging, imaging ordered Patient declined pain/vomiting medication TRAVEL OUTSIDE OF THE [place] IN LAST 30 DAYS: No - Related Data Allergies/Adverse Reactions: morphine Allergy (Verified 06/28/17 11:05) Penicillins Allergy (Verified 06/28/17 11:05) Hives, SOB Past Medical History - Social History Chew tobacco use (# tins/day): No Frequency of alcohol use: Occasional Drug Abuse: None - Past Medical History Cardiac Medical History: Reports: Hx Coronary Artery Disease, Hx Heart Attack, Hx Hypercholesterolemia - takes Atorvastatin r/t cardiac stent, Hx Hypertension Denies: Hx Atrial Fibrillation, Hx Congestive Heart Failure, Hx Peripheral Vascular Disease, Hx Pulmonary Embolism, Hx Heart Murmur Pulmonary Medical History: Reports: Hx Sleep Apnea - CPAP Denies: Hx Asthma, Hx Bronchitis, Hx COPD, Hx Pneumonia, Hx Respiratory Failure, Hx Tuberculosis Endocrine Medical History: Reports: Hx Diabetes Mellitus Type 2. Denies: Hx Graves' Disease, Hx Hyperthyroidism, Hx Hypothyroidism Renal/ Medical History: Reports: Hx Kidney Stones. Denies: Hx Benign Prostatic Hyperplasia, Hx End Stage Renal Disease, Hx Peritoneal Dialysis Malignancy Medical History: Denies Hx Lung Cancer GI Medical History: Denies: Hx Crohn's Disease, Hx Gastroesophageal Reflux Disease, Hx Hiatal Hernia, Hx Irritable Bowel, Hx Liver Failure, Hx Pancreatitis , Hx Ulcer Musculoskeltal Medical History: Reports Hx Arthritis, Denies Hx Fibromyalgia, Denies Hx Muscular Dystrophy Psychiatric Medical History: Reports: Hx Depression - Anxiety, Hx Post Traumatic Stress Disorder Denies: Hx Bipolar Disorder, Hx Schizophrenia Traumatic Medical History: Denies: Hx Fractures Past Surgical History: Reports: Hx Abdominal Surgery - hernia repair, Hx Herniorrhaphy - Bilateral Inguinal/Femoral, Hx Orthopedic Surgery - right knee. Denies: Hx Appendectomy, Hx Bowel Surgery, Hx Cholecystectomy, Hx Colostomy, Hx Coronary Artery Bypass Graft, Hx Gastric Bypass Surgery, Hx Pacemaker, Hx Tonsillectomy - Immunizations Hx Diphtheria, Pertussis, Tetanus Vaccination: Yes History of Influenza Vaccine for 11/2016 - 04/2017 Season: Refused Physical Exam - Vital signs Vitals: Temp Pulse Resp BP Pulse Ox 98.2 F 64 17 125/74 96 06/28/17 10:58 06/28/17 10:58 06/28/17 10:58 06/28/17 10:58 06/28/17 10:58 Course - Vital Signs Vital signs: Temp Pulse Resp BP Pulse Ox 98.2 F 64 17 125/74 96 06/28/17 10:58 06/28/17 10:58 06/28/17 10:58 06/28/17 10:58 06/28/17 10:58
[2017-06-28 11:46] LABS: ABSOLUTE EOSINOPHILS # (AUTO) 0.3 10^3/uL (0.0-0.6); ABSOLUTE LYMPHOCYTES (AUTO) 2.4 10^3/uL (0.5-4.7); ABSOLUTE MONOCYTES (AUTO) 0.9 10^3/uL (0.1-1.4); ABSOLUTE NEUT (AUTO) 3.6 10^3/uL (1.7-8.2); BASOPHILS % (AUTO) 0.7 % (0-2); EOSINOPHILS % (AUTO) 4.1 % (0-6); LYMPHOCYTES % (AUTO) 32.8 % (13-45); MEAN CORPUSCULAR HEMOGLOBIN 27.3 pg (27.0-33.4); MEAN CORPUSCULAR HGB CONC 32.3 g/dL (32.0-36.0); MEAN CORPUSCULAR VOLUME 84 fl (80-97); MONOCYTES % (AUTO) 12.7 % (3-13); PLATELET COUNT 175 10^3/uL (150-450); RED BLOOD COUNT 4.38 10^6/uL (4.35-5.55); RED CELL DISTRIBUTION WIDTH 15.3 % (11.5-14.0); SEGMENTED NEUTROPHILS % (AUTO) 49.7 % (42-78); TOTAL CELLS COUNTED % (AUTO) 100 %; WHITE BLOOD COUNT 7.3 10^3/uL (4.0-10.5)
[2017-06-28 11:50] LABS: INTERNATIONAL RATION (INR) 1.01; PROTHROMBIN TIME 13.8 SEC (11.4-15.4)
[2017-06-28 12:06] LABS: ALANINE AMINOTRANSFERASE 73 U/L (21-72); ALKALINE PHOSPHATASE 99 U/L (38-126); ANION GAP 10 (5-19); ASPARTATE AMINO TRANSFERASE 69 U/L (17-59); BILIRUBIN,DIRECT 0.4 mg/dL (0.0-0.4); BILIRUBIN,TOTAL 0.5 mg/dL (0.2-1.3); BLOOD UREA NITROGEN 29 mg/dL (7-20); CALCIUM 9.4 mg/dL (8.4-10.2); CARBON DIOXIDE 26 mmol/L (22-30); CHLORIDE 107 mmol/L (98-107); GLUCOSE 179 mg/dL (75-110); LIPASE 460.5 U/L (23-300); POTASSIUM 4.8 mmol/L (3.6-5.0); SODIUM 143.2 mmol/L (137-145); TOTAL PROTEIN 7.8 g/dL (6.3-8.2)
--- NOTE | 2017-06-28 12:56 | ER Document Report ---
ED General - General Mode of Arrival: Ambulatory Information source: Patient TRAVEL OUTSIDE OF THE [place] IN LAST 30 DAYS: No <ARNOLDO SHEIKH - Last Filed: 06/28/17 12:51> <CORAZON HERRING - Last Filed: 06/28/17 16:39> - General Chief Complaint: Flank Pain Stated Complaint: FLANK PAIN Time Seen by Provider: 06/28/17 11:18 Notes: Patient is a 67-year-old male with a history of AAA presents to the department from [facility] complaining of abdominal pain onset 5 days ago. NH instructed the patient to come to the ED with concerns his AAA growing. Patient describes his abdominal pain as constant and dull that radiates into his right flank with a severity of 4/5. Patient further states his pain is exacerbated with movement. Patients associated symptoms include nausea, vomiting and chills (chronic). Patient denies diarrhea, chest pain, shortness of breath, fevers, hematuria or dysuria. (ARNOLDO SHEIKH) - Related Data Allergies/Adverse Reactions: morphine Allergy (Verified 06/28/17 11:05) Penicillins Allergy (Verified 06/28/17 11:05) Hives, SOB Past Medical History - General Information source: Patient - Social History Smoking Status: Never Smoker Chew tobacco use (# tins/day): No Frequency of alcohol use: Occasional Drug Abuse: None Family History: DM, Hypertension, Other Patient has suicidal ideation: No Patient has homicidal ideation: No - Past Medical History Cardiac Medical History: Reports: Hx Coronary Artery Disease, Hx Heart Attack, Hx Hypercholesterolemia - takes Atorvastatin r/t cardiac stent, Hx Hypertension Pulmonary Medical History: Reports: Hx Sleep Apnea - CPAP Endocrine Medical History: Reports: Hx Diabetes Mellitus Type 2 Renal/ Medical History: Reports: Hx Kidney Stones Musculoskeltal Medical History: Reports Hx Arthritis Psychiatric Medical History: Reports: Hx Depression - Anxiety, Hx Post Traumatic Stress Disorder Past Surgical History: Reports: Hx Abdominal Surgery - hernia repair, Hx Herniorrhaphy - Bilateral Inguinal/Femoral, Hx Orthopedic Surgery - right knee - Immunizations Hx Diphtheria, Pertussis, Tetanus Vaccination: Yes <ARNOLDO SHEIKH - Last Filed: 06/28/17 12:51> Review of Systems - Review of Systems Constitutional: See HPI, Chills EENT: No symptoms reported Cardiovascular: No symptoms reported Respiratory: No symptoms reported Gastrointestinal: See HPI, Abdominal pain, Nausea, Vomiting Genitourinary: See HPI, Flank pain - right Male Genitourinary: No symptoms reported Musculoskeletal: No symptoms reported Skin: No symptoms reported Hematologic/Lymphatic: No symptoms reported Neurological/Psychological: No symptoms reported -: Yes All other systems reviewed and negative <ARNOLDO SHEIKH - Last Filed: 06/28/17 12:51> Physical Exam <ARNOLDO SHEIKH - Last Filed: 06/28/17 12:51> <CORAZON HERRING - Last Filed: 06/28/17 16:39> - Vital signs Vitals: Temp Pulse Resp BP Pulse Ox 98.2 F 64 17 125/74 96 06/28/17 10:58 06/28/17 10:58 06/28/17 10:58 06/28/17 10:58 06/28/17 10:58 - Notes Notes: GENERAL: Alert, interacts well. No acute distress. HEAD: Normocephalic, atraumatic. EYES: Pupils equal, round, and reactive to light. Extraocular movements intact. ENT: Oral mucosa moist, tongue midline. NECK: Full range of motion. Supple. Trachea midline. LUNGS: Clear to auscultation bilaterally, no wheezes, rales, or rhonchi. No respiratory distress. HEART: Regular rate and rhythm. No murmurs, gallops, or rubs. ABDOMEN: Soft, RUQ and Epigastric tenderness to palpation. Non-distended. Bowel sounds present in all 4 quadrants. EXTREMITIES: Moves all 4 extremities spontaneously. NEUROLOGICAL: Alert and oriented x3. Normal speech. PSYCH: Normal affect, normal mood. SKIN: Warm, dry, normal turgor. Extensive depigmentaiton. (ARNOLDO SHEIKH) Course - Laboratory Result Diagrams: 06/28/17 11:37 06/28/17 11:37 <KORI,TAMAARTI - Last Filed: 06/28/17 12:51> - Laboratory Result Diagrams: 06/28/17 11:37 06/28/17 11:37 <CORAZON HERRING - Last Filed: 06/28/17 16:39> - Re-evaluation Re-evalutation: 06/28/17 16:36 CT the abdomen does not show any abdominal aortic aneurysm or retroperitoneal masses, ultrasound of the abdomen shows findings consistent with chronic medical renal disease, no evidence of biliary duct dilation or pancreatitis. CBC shows mild anemia, no leukocytosis, coags are normal, CMP shows chronic kidney disease with slight worsening from baseline BUN 29, creatinine 2.41, LFTs slightly elevated with AST of 69 and ALT of 73. Lipase elevated at 460.5. This is consistent with mild pancreatitis but also concerning for possible duodenal ulcer. Discussed with patient that we can treat this 2 different ways , when he can go on a clear liquid diet and start Zantac now or he can just go on a clear liquid diet for the next 2 days and if his pain does not worsen if does not improve he can start Zantac then. Patient thinks he would like to try the clear liquid diet first, prescription will be written for Zantac as well. Patient will return for fevers, vomiting, worsening abdominal pain or any new or concerning symptoms. (CORAZON HERRING) - Vital Signs Vital signs: Temp Pulse Resp BP Pulse Ox 98.2 F 64 17 125/74 96 06/28/17 10:58 06/28/17 10:58 06/28/17 10:58 06/28/17 10:58 06/28/17 10:58 - Laboratory Laboratory results interpreted by me: 06/28/17 06/28/17 11:37 11:37 Hgb 12.0 L Hct 37.0 L RDW 15.3 H BUN 29 H Creatinine 2.41 H Est GFR ( Amer) 33 L Est GFR (Non-Af Amer) 27 L Glucose 179 H AST 69 H ALT 73 H Lipase 460.5 H Discharge <ARNOLDO SHEIKH - Last Filed: 06/28/17 12:51> <CORAZON HERRING - Last Filed: 06/28/17 16:39> - Discharge Clinical Impression: Epigastric abdominal pain Pancreatitis Qualifiers: Chronicity: acute Pancreatitis type: unspecified pancreatitis type Acute pancreatitis complication: no infection or necrosis Qualified Code(s): K85.90 - Acute pancreatitis without necrosis or infection, unspecified Condition: Stable Disposition: HOME, SELF-CARE Additional Instructions: Pancreatitis Pancreatitis is an inflammation of the pancreas, an organ at the back of your abdomen. The pancreas produces insulin and enzymes that digest your food. Pancreatitis can be caused by gallstones in the bile duct, by alcohol or viruses, or by excess fat or calcium in the blood stream. Occasionally, pancreatitis occurs when a stomach ulcer retana through into the pancreas. We try to find the cause of pancreatitis, but some tests can't be done until the pancreas heals. The usual symptoms of pancreatitis are pain in the pit of the stomach that goes straight through to the back, vomiting, and low-grade fever. Severe cases require hospital admission, but many patients with mild pancreatitis do well at home. You will probably need medicine for pain and for vomiting. Sometimes we prescribe medicine to decrease stomach acid secretion and to decrease flow of pancreatic juices. Start with a diet of clear liquids (soda pop, juices). When the pain is decreasing, you can add some simple starches (potato, toast, applesauce). Avoid proteins and fats until you are completely painfree. When you're better, your doctor may suggest treatment to prevent future pancreatitis (such as gallbladder removal). Avoid alcohol forever. Get immediate treatment for any future episodes. Contact your doctor at once or return here if you have increasing pain, shortness of breath, general swelling, increasing size of the abdomen, continued vomiting, muscle spasms, or other new symptoms. If your pain does not improve but also does not worsen with the treatment described above please start taking Zantac 75 mg twice a day. Prescriptions: Ondansetron [Zofran Odt 4 mg Tablet] 1 - 2 tab PO Q4HP PRN #14 tab.rapdis PRN Reason: Referrals: [facility] [Provider Group] - Follow up in 3-5 days Scribe Attestation: 06/28/17 16:39 I personally performed the services described in the documentation, reviewed and edited the documentation which was dictated to the scribe in my presence, and it accurately records my words and actions. (CORAZON HERRING) Scribe Documentation - Scribe Written by Josesito:: Josesito Butt, 06/28/2017 12:59 acting as scribe for :: Osorio <ARNOLDO SHEIKH - Last Filed: 06/28/17 12:51>
--- NOTE | 2017-06-28 13:24 | RADIOLOGY REPORT (SQ) ---
EXAM DESCRIPTION: CT ABD/PELVIS NO ORAL OR IV COMPLETED DATE/TIME: 06/28/2017 1:09 pm REASON FOR STUDY: hx AAA, now mid abd pain; eval AAA rupture COMPARISON: CT abdomen pelvis 04/10/2017 TECHNIQUE: CT scan of the abdomen and pelvis performed without intravenous or oral contrast. Images reviewed with lung, soft tissue, and bone windows. Reconstructed coronal and sagittal MPR images revi ewed. All images stored on PACS. All CT scanners at this facility use dose modulation, iterative reconstruction, and/or weight based d osing when appropriate to reduce radiation dose to as low as reasonably achievable (ALARA). [facility]: Dose Right [facility]: CareDose [facility]: Dose Right [facility]: Teradose 4D [facility]: [employer] RADIATION DOSE: CT Rad equipment meets quality standard of care and radiation dose reduction techniq ues were employed. CTDIvol: 20.2 mGy. DLP: 1095 mGy-cm.mGy. LIMITATIONS: None. FINDINGS: LOWER CHEST: No significant findings. No nodules or infiltrates. NON-CONTRASTED LIVER, SPLEEN, ADRENALS: Evaluation limited by lack of IV contrast. No identified sign ificant masses. PANCREAS: No masses. No peripancreatic inflammatory changes. GALLBLADDER: No identified stones by CT criteria. No inflammatory changes to suggest cholecystitis. RIGHT KIDNEY AND URETER: No suspicious masses. Assessment limited by lack of IV contrast. No signif icant calcifications. No hydronephrosis or hydroureter. LEFT KIDNEY AND URETER: No suspicious masses. Assessment limited by lack of IV contrast. No signifi cant calcifications. No hydronephrosis or hydroureter. AORTA AND RETROPERITONEUM: No aneurysm. No retroperitoneal masses or adenopathy. BOWEL AND PERITONEAL CAVITY: No obvious masses or inflammatory changes. No free fluid. APPENDIX: Normal. PELVIS, BLADDER, AND ABDOMINAL WALL:No abnormal masses. No free fluid. Bladder normal. BONES: No significant findings. OTHER: No other significant finding. IMPRESSION: NO SIGNIFICANT OR ACUTE PROCESS IN THE ABDOMEN OR PELVIS. NO ABDOMINAL AORTIC ANEURYSM OR RETROPERITONEAL MASSES. COMMENT: Quality ID # [id number]: Final reports with documentation of one or more dose reduction techniques (e.g., Automated exposure control, adjustment of the mA and/or kV according to patient size, use of iterative reconstruction technique) TECHNICAL DOCUMENTATION: JOB ID: [id number]- All Rights Reserved Reading location - IP/workstation name: [email or web address]
--- NOTE | 2017-06-28 16:13 | RADIOLOGY REPORT (SQ) ---
EXAM DESCRIPTION: U/S ABDOMEN LIMITED W/O DOP COMPLETED DATE/TIME: 06/28/2017 3:43 pm REASON FOR STUDY: RUQ pain, vomiting COMPARISON: None. TECHNIQUE: Dynamic and static grayscale images acquired of the abdomen and recorded on PACS. Additio nal selected color Doppler and spectral images recorded. LIMITATIONS: None. FINDINGS: PANCREAS: No abnormality of the body and tail of the pancreas. Tail region not visualized . LIVER: Borderline hepatomegaly. The liver measures 19 cm. The liver demonstrates normal echogenicit y. LIVER VASCULATURE: Normal directional flow of the main portal vein and hepatic veins. GALLBLADDER: The gallbladder demonstrates no abnormality. The gallbladder wall measures 2 mm which i s normal. ULTRASOUND-DETECTED VANEGAS'S SIGN: Negative. INTRAHEPATIC DUCTS AND COMMON DUCT: CBD is normal measuring 5 mm. Intrahepatic ducts normal caliber. No filling defects. INFERIOR VENA CAVA: Normal flow. AORTA: The maximum AP diameter the upper abdominal aorta is 2.9 cm and distally 2.4 cm. The mid abdo yoana aorta obscured by bowel gas. RIGHT KIDNEY: The right kidney measures 10.2 cm demonstrating increased echogenicity which could be secondary to chronic medical renal disease. IMPRESSION: Findings consistent chronic medical renal disease. Otherwise, normal limited upper abdo yoana ultrasound. TECHNICAL DOCUMENTATION: JOB ID: [id number] [employer]- All Rights Reserved Reading location - IP/workstation name: [email or web address]
== END 2017-06-28 16:50 | disposition home or self-care (01) ==
LOC: ER 10:50
DX: R10.13 Epigastric pain (principal); K85.90 Acute pancreatitis without necrosis or infection, unspecified; I25.10 Atherosclerotic heart disease of native coronary artery without angina pectoris; E78.00 Pure hypercholesterolemia, unspecified; E11.9 Type 2 diabetes mellitus without complications; I10 Essential (primary) hypertension; Z88.6 Allergy status to analgesic agent; Z88.0 Allergy status to penicillin; I25.2 Old myocardial infarction; Z87.442 Personal history of urinary calculi
CPT/HCPCS: 36415; 74176; 76705; 80053; 83690; 85025; 85610; 85730; 99284

== ENCOUNTER 2017-11-18 11:20 | Emergency (ER) | payer OTHER, MEDICARE ==
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
[2017-11-18] MEDS ORDERED: OXYCODONE-ACETAMINOPHEN 5-325 MG TABLET PO ONE (16:53)
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
[2017-11-18 17:41] VITALS: BP 194/87
== END 2017-11-18 17:43 | disposition home or self-care (01) ==
LOC: ER 11:20
DX: R07.81 Pleurodynia (principal); I25.10 Atherosclerotic heart disease of native coronary artery without angina pectoris; I10 Essential (primary) hypertension; I25.2 Old myocardial infarction; E11.9 Type 2 diabetes mellitus without complications; Z88.5 Allergy status to narcotic agent; Z88.0 Allergy status to penicillin
CPT/HCPCS: 99283

== ENCOUNTER 2018-01-25 14:26 | Observation (INO) | payer OTHER, MEDICARE ==
[2018-01-25 15:17] LABS: ABSOLUTE EOSINOPHILS # (AUTO) 0.2 10^3/uL (0.0-0.6); ABSOLUTE LYMPHOCYTES (AUTO) 2.1 10^3/uL (0.5-4.7); ABSOLUTE MONOCYTES (AUTO) 0.7 10^3/uL (0.1-1.4); ABSOLUTE NEUT (AUTO) 3.3 10^3/uL (1.7-8.2); BASOPHILS % (AUTO) 0.4 % (0-2); EOSINOPHILS % (AUTO) 2.8 % (0-6); HEMATOCRIT 35.4 % (37.9-51.0); HEMOGLOBIN 11.6 g/dL (13.5-17.0); LYMPHOCYTES % (AUTO) 33.5 % (13-45); MEAN CORPUSCULAR HEMOGLOBIN 27.7 pg (27.0-33.4); MEAN CORPUSCULAR HGB CONC 32.8 g/dL (32.0-36.0); MEAN CORPUSCULAR VOLUME 85 fl (80-97); MONOCYTES % (AUTO) 11.3 % (3-13); PLATELET COUNT 117 10^3/uL (150-450); RED BLOOD COUNT 4.19 10^6/uL (4.35-5.55); RED CELL DISTRIBUTION WIDTH 14.3 % (11.5-14.0); TOTAL CELLS COUNTED % (AUTO) 100 %; WHITE BLOOD COUNT 6.3 10^3/uL (4.0-10.5)
[2018-01-25 15:42] LABS: ALANINE AMINOTRANSFERASE 40 U/L (21-72); ALBUMIN 3.2 g/dL (3.5-5.0); ALKALINE PHOSPHATASE 96 U/L (38-126); ANION GAP 10 (5-19); ASPARTATE AMINO TRANSFERASE 46 U/L (17-59); BILIRUBIN,DIRECT 0.4 mg/dL (0.0-0.4); BILIRUBIN,TOTAL 0.8 mg/dL (0.2-1.3); BLOOD UREA NITROGEN 20 mg/dL (7-20); CALCIUM 9.3 mg/dL (8.4-10.2); CARBON DIOXIDE 26 mmol/L (22-30); CHLORIDE 102 mmol/L (98-107); CREATINE KINASE 59 U/L (55-170); GLUCOSE 307 mg/dL (75-110); POTASSIUM 5.6 mmol/L (3.6-5.0); SODIUM 137.6 mmol/L (137-145); TOTAL PROTEIN 6.8 g/dL (6.3-8.2)
[2018-01-25 15:53] LABS: CREATINE KINASE MB 0.33 ng/mL (<4.55)
[2018-01-25 15:56] LABS: TROPONIN I < 0.012 ng/mL
--- NOTE | 2018-01-25 16:21 | RADIOLOGY REPORT (SQ) ---
EXAM DESCRIPTION: CT HEAD WITHOUT COMPLETED DATE/TIME: 01/25/2018 4:13 pm REASON FOR STUDY: syncope COMPARISON: None. TECHNIQUE: Axial images acquired through the brain without intravenous contrast. Images reviewed wi th bone, brain and subdural windows. Additional sagittal and coronal reconstructions were generated. Images stored on PACS. All CT scanners at this facility use dose modulation, iterative reconstruction, and/or weight based d osing when appropriate to reduce radiation dose to as low as reasonably achievable (ALARA). [facility]: Dose Right [facility]: CareDose [facility]: Dose Right [facility]: Teradose 4D [facility]: [employer] RADIATION DOSE: CT Rad equipment meets quality standard of care and radiation dose reduction techniq ues were employed. CTDIvol: 53.2 mGy. DLP: 964 mGy-cm. mGy. LIMITATIONS: None. FINDINGS: VENTRICLES: Normal size and contour. CEREBRUM: No masses. No hemorrhage. No midline shift. No evidence for acute infarction. Normal gra y/white matter differentiation. No areas of low density in the white matter. CEREBELLUM: No masses. No hemorrhage. No alteration of density. No evidence for acute infarction. EXTRAAXIAL SPACES: No fluid collections. No masses. ORBITS AND GLOBE: No intra- or extraconal masses. Normal contour of globe without masses. CALVARIUM: No fracture. PARANASAL SINUSES: There is a retention cyst or polyp in the left maxillary sinus. SOFT TISSUES: No mass or hematoma. OTHER: No other significant finding. IMPRESSION: NORMAL BRAIN CT WITHOUT CONTRAST. EVIDENCE OF ACUTE STROKE: NO. COMMENT: Quality ID # [id number]: Final reports with documentation of one or more dose reduction techniques (e.g., Automated exposure control, adjustment of the mA and/or kV according to patient size, use of iterative reconstruction technique) TECHNICAL DOCUMENTATION: JOB ID: [id number] [employer]- All Rights Reserved Reading location - IP/workstation name: [email or web address]
[2018-01-25] MEDS ORDERED: NORMAL SALINE 1000 ML 1,000 ML IV ONE (16:36)
--- NOTE | 2018-01-25 16:44 | RADIOLOGY REPORT (SQ) ---
EXAM DESCRIPTION: KNEE RIGHT 4 VIEWS COMPLETED DATE/TIME: 01/25/2018 4:22 pm REASON FOR STUDY: fall COMPARISON: None. NUMBER OF VIEWS: Four views. TECHNIQUE: AP, lateral, and both oblique radiographic images acquired of the right knee. LIMITATIONS: None. FINDINGS: MINERALIZATION: Normal. BONES: No fracture dislocation. There is a total knee arthroplasty. JOINT: No effusion. SOFT TISSUES: No soft tissue swelling. No radio-opaque foreign body. OTHER: No other significant finding. IMPRESSION: NEGATIVE STUDY OF THE RIGHT KNEE. NO RADIOGRAPHIC EVIDENCE OF ACUTE INJURY. TECHNICAL DOCUMENTATION: JOB ID: [id number] [employer]- All Rights Reserved Reading location - IP/workstation name: [email or web address]
[2018-01-25 16:58] LABS: VENOUS BLOOD BASE EXCESS 1.9 mmol/L; VENOUS BLOOD HCO3 28.3 mmol/L (20-32); VENOUS BLOOD PCO2 51.6 mmHg (35-63); VENOUS BLOOD PH 7.36 (7.30-7.42)
--- NOTE | 2018-01-25 18:53 | ER Document Report ---
ED General - General Chief Complaint: Low Blood Pressure Stated Complaint: BLOOD SUGAR ISSUES Time Seen by Provider: 01/25/18 15:42 Mode of Arrival: Medic Information source: Patient, [facility] Records Notes: Patient is a 67-year-old large male who comes emergency room via paramedics with a witnessed syncopal episode x2 in presence of paramedics. Patient relates history of having increasing episodes of syncope over the past 2 weeks and a friend states his been over the past month. Evidently he is been dropping every time he go someplace. He states today he went to the [employer] to fish. Patient was coming back from fishing stopped of the [place] K got out of his car he passed out. He got up from that one walked into [place] was walking back out passed out again EMS was called they help him get up twice he passed out twice at that time. Patient states his blood sugars have been going crazy lately he is on coverage and that he is been up to 6 -700 over the course of the several days and does not know why it is getting out of whack. [facility] and has not followed up recently with him about this. He denies any injury with the exception of his right knee from the fall. He did not hit his head did not have loss of consciousness secondary to a concussion type presentation. He states that when he gets the "feels the crazy feelings is" his eyes start to roll back in his head and everything goes black. He denies any chest pain or shortness of breath any time during these events. TRAVEL OUTSIDE OF THE [place] IN LAST 30 DAYS: No - HPI Onset: This afternoon Onset/Duration: Sudden, Persistent, Worse Quality of pain: No pain Severity: Moderate Pain Level: 3 Context: Syncope Associated symptoms: Weakness. denies: Chest pain Exacerbated by: Sitting, Standing, Movement Relieved by: Denies Similar symptoms previously: Yes Recently seen / treated by doctor: No - Related Data Allergies/Adverse Reactions: morphine Allergy (Verified 11/18/17 13:29) Penicillins Allergy (Verified 11/18/17 13:29) Hives, SOB Past Medical History - General Information source: Patient - Social History Smoking Status: Never Smoker Cigarette use (# per day): No Chew tobacco use (# tins/day): No Smoking Education Provided: No Frequency of alcohol use: Occasional Drug Abuse: None Family History: Reviewed & Not Pertinent, DM, Hypertension, Other Patient has suicidal ideation: No Patient has homicidal ideation: No - Past Medical History Cardiac Medical History: Reports: Hx Coronary Artery Disease, Hx Heart Attack, Hx Hypercholesterolemia - takes Atorvastatin r/t cardiac stent, Hx Hypertension Denies: Hx Atrial Fibrillation, Hx Congestive Heart Failure, Hx Peripheral Vascular Disease, Hx Pulmonary Embolism, Hx Heart Murmur Pulmonary Medical History: Reports: Hx Sleep Apnea - CPAP Denies: Hx Asthma, Hx Bronchitis, Hx COPD, Hx Pneumonia, Hx Respiratory Failure, Hx Tuberculosis Endocrine Medical History: Reports: Hx Diabetes Mellitus Type 2. Denies: Hx Graves' Disease, Hx Hyperthyroidism, Hx Hypothyroidism Renal/ Medical History: Reports: Hx Kidney Stones. Denies: Hx Benign Prostatic Hyperplasia, Hx End Stage Renal Disease, Hx Peritoneal Dialysis Malignancy Medical History: Denies Hx Lung Cancer GI Medical History: Denies: Hx Crohn's Disease, Hx Gastroesophageal Reflux Disease, Hx Hiatal Hernia, Hx Irritable Bowel, Hx Liver Failure, Hx Pancreatitis , Hx Ulcer Musculoskeletal Medical History: Reports Hx Arthritis, Denies Hx Fibromyalgia, Denies Hx Muscular Dystrophy Psychiatric Medical History: Reports: Hx Depression - Anxiety, Hx Post Traumatic Stress Disorder Denies: Hx Bipolar Disorder, Hx Schizophrenia Traumatic Medical History: Denies: Hx Fractures Past Surgical History: Reports: Hx Abdominal Surgery - hernia repair, Hx Herniorrhaphy - Bilateral Inguinal/Femoral, Hx Orthopedic Surgery - right knee. Denies: Hx Appendectomy, Hx Bowel Surgery, Hx Cholecystectomy, Hx Colostomy, Hx Coronary Artery Bypass Graft, Hx Gastric Bypass Surgery, Hx Pacemaker, Hx Tonsillectomy - Immunizations Hx Diphtheria, Pertussis, Tetanus Vaccination: Yes Review of Systems - Review of Systems Constitutional: No symptoms reported, Malaise, Weakness EENT: No symptoms reported Cardiovascular: No symptoms reported Respiratory: No symptoms reported Gastrointestinal: No symptoms reported Genitourinary: No symptoms reported Male Genitourinary: No symptoms reported Musculoskeletal: No symptoms reported Skin: No symptoms reported Hematologic/Lymphatic: No symptoms reported Neurological/Psychological: See HPI, Weakness -: Yes All other systems reviewed and negative Physical Exam - Vital signs Vitals: Resp BP Pulse Ox 20 103/64 92 01/25/18 14:46 01/25/18 14:46 01/25/18 14:46 Interpretation: Hypotensive Notes: PHYSICAL EXAMINATION: GENERAL: Patient is a well-nourished well-developed obese 67-year-old male who is in no apparent distress on physical exam today. He is laid in the cotton communicative and responsive.. HEAD: Atraumatic, normocephalic. EYES: Pupils equal round and reactive to light, extraocular movements intact, sclera anicteric, conjunctiva are normal. NECK: Normal range of motion, supple without lymphadenopathy LUNGS: Breath sounds clear to auscultation bilaterally and equal. No wheezes rales or rhonchi. HEART: Regular rate and rhythm without murmurs ABDOMEN: Examination of the abdomen shows it to be moderately distended with some tympany noted in all quads. There is no real tenderness or discomfort to palpation or percussion. Musculoskeletal: Normal range of motion, no pitting or edema. No cyanosis. NEUROLOGICAL: Normal speech, normal gait. Normal sensory, motor exams NIH scale is 1. PSYCH: Normal mood, normal affect. SKIN: Warm, Dry, normal turgor, no rashes or lesions noted. Although patient does have severe vitiligo. Course - Re-evaluation Re-evalutation: 01/25/18 19:10 Patient state of course has been very benign however he has too many multiple comorbidities that I can just send him home with a diagnosis of dehydration. He has been having hypoglycemic events that are not explainable. [facility] because he has a history of high potassium and he denies any cardiac problems but states that they diagnosed him as having some renal insufficiency and thinks is due to his medications. So patient is really confused over what is going on. Presuming patient may be dehydrated secondary to his Lasix because he is actually taking it for hyperklemia. But it does not explain why his blood sugars have been running 5-700. At this time since it was 2 witnessed syncopal episodes I feels necessary bring patient into the hospital for further evaluation. 01/30/18 11:35 - Vital Signs Vital signs: Temp Pulse Resp BP Pulse Ox 98.6 F 62 15 130/75 H 100 01/27/18 13:42 01/27/18 13:42 01/27/18 13:42 01/27/18 13:42 01/27/18 13:42 - Laboratory Result Diagrams: 01/26/18 02:23 01/26/18 02:23 Laboratory results interpreted by me: 01/25/18 01/25/18 14:38 14:38 RBC 4.19 L Hgb 11.6 L Hct 35.4 L RDW 14.3 H Plt Count 117 L Potassium 5.6 H Creatinine 1.69 H Est GFR ( Amer) 49 L Est GFR (Non-Af Amer) 41 L Glucose 307 H Albumin 3.2 L Discharge - Discharge Clinical Impression: Orthostatic hypotension, Hyperglycemia Condition: Good Disposition: ADMITTED INPATIENT Admitting Provider: Hospitalist Unit Admitted: Telemetry
[2018-01-25] MEDS ORDERED: MAG HYDROX/AL HYDROX/SIMETH SUSP 30 ML UDCUP PO PRN (20:19)
[2018-01-25] MEDS ORDERED: TEMAZEPAM 15 MG CAPSULE PO PRN (20:19)
[2018-01-25] MEDS ORDERED: ACETAMINOPHEN 325 MG TABLET PO PRN (20:19)
[2018-01-25] MEDS ORDERED: PROMETHAZINE HCL 25 MG TABLET PO PRN (20:19)
[2018-01-25] MEDS ORDERED: PROMETHAZINE HCL INJ 25 MG/1 ML VIAL IV PRN (20:19)
[2018-01-25] MEDS ORDERED: DEXTROSE 40% GEL 15 GM TUBE PO PRN ×2 (20:24)
[2018-01-25] MEDS ORDERED: SODIUM POLYSTYRENE SULFONATE 15 GM/60 ML PO ONE (20:24)
[2018-01-25] MEDS ORDERED: DEXTROSE 50%-WATER 25 GM/50 ML DISP.SYRIN IV PRN ×2 (20:24)
[2018-01-25] MEDS ORDERED: GLUCAGON,HUMAN RECOMB 1 MG INJ IM PRN (20:24)
[2018-01-25 20:59] LABS: URINE AMPHETAMINES SCREEN NEGATIVE; URINE BARBITURATES SCREEN NEGATIVE; URINE BENZODIAZEPINES SCREEN NEGATIVE; URINE COCAINE SCREEN NEGATIVE; URINE MARIJUANA (THC) SCREEN UNCONFIRMED POSITIVE; URINE METHADONE SCREEN NEGATIVE; URINE PHENCYCLIDINE SCREEN NEGATIVE
[2018-01-25 21:33] LABS: APPEARANCE,URINE SLIGHTLY-CLOUDY; BILIRUBIN,URINE NEGATIVE (NEGATIVE); COLOR,URINE YELLOW; GLUCOSE, URINE >=500 mg/dL (NEGATIVE); KETONES,URINE NEGATIVE (NEGATIVE); LEUKOCYTE ESTERASE,URINE NEGATIVE (NEGATIVE); NITRITE,URINE NEGATIVE (NEGATIVE); PROTEIN,URINE 100 mg/dL (NEGATIVE); UROBILINOGEN,URINE NEGATIVE mg/dL (<2.0)
[2018-01-25] MEDS: ENOXAPARIN SODIUM INJ 40 MG/0.4 ML DISP.SYRIN SUBCUT SCH (21:36)
--- NOTE | 2018-01-25 22:18 | PDOC H&P ---
History of Present Illness Admission Date/PCP: 01/25/18 19:57 NE Patient complains of: Syncope History of Present Illness: RAJAT DANIEL is a 67 year old male with medical history that I will outline below. Patient tells me that he was driving to the store, while in the parking lot he was feeling that his head was buzzing, he saw a light shine bright in his eyes and suddenly passed out, he does not know for how long, apparently people walking around saw him and laid him on the floor and call EMS. Patient had a similar episode in the past yesterday while at home, he was going to the bathroom and fell glass, he hit the back of his head, does not know for how long he was laying on the floor, bystanders did call EMS. He lives with his who is bedridden. He is unsure if he was dehydrated, he thinks that he might not be drinking enough fluids. Denies nausea, vomiting, fever, chills, shortness of breath, chest pain, abdominal pain. His last bowel movement was 2 days ago normal, denies any urinary symptoms. Apparently patient has increase of syncopal episodes for the last 2 weeks. Patient also tells me that his blood sugar has been going up to 500 the last few days, he tells me that his blood sugar has usually been well controlled. Today it was 307 in the ED. Upon EMS arrival his blood pressure was 70/62, after 1 L of IV fluids his blood pressure improved to 145/[address] of the head negative. Patient has been complaining of right knee pain, he had right knee surgery and yesterday he fell onto his right knee, x-ray negative for acute. Past Medical History Cardiac Medical History: Reports: Coronary Artery Disease, Myocardial Infarction , Hyperlipidema - takes Atorvastatin r/t cardiac stent, Hypertension Denies: Atrial Fibrillation, Congestive Heart Failure, Peripheral Vascular Disease, Pulmonary Embolism, Heart Murmur Pulmonary Medical History: Reports: Sleep Apnea - CPAP Denies: Asthma, Bronchitis, Chronic Obstructive Pulmonary Disease (COPD), Pneumonia, Respiratory Failure, Tuberculosis Endocrine Medical History: Reports: Diabetes Mellitus Type 2 Denies: Hyperthyroidism, Hypothyroidism Renal/ Medical History: Denies: End Stage Renal Disease Malignancy Medical History: Denies: Lung Cancer GI Medical History: Denies: Crohn's Disease, Gastroesophageal Reflux Disease, Hiatal Hernia Musculoskeltal Medical History: Reports: Arthritis Denies: Fibromyalgia Psychiatric Medical History: Reports: Depression - Anxiety, Post Traumatic Stress Disorder Denies: Bipolar Disorder Past Surgical History Past Surgical History: Reports: Herniorrhaphy - Bilateral Inguinal/Femoral, Orthopedic Surgery - right knee Denies: Appendectomy, Cholecystectomy, Colostomy, Coronary Artery Bypass Graft, Gastric Bypass Surgery, Pacemaker, Tonsillectomy Social History Smoking Status: Never Smoker Frequency of Alcohol Use: Occasional Hx Recreational Drug Use: No Drugs: None Hx Prescription Drug Abuse: No - Advance Directive Resuscitation Status: Full Code Family History Family History: Reviewed & Not Pertinent, DM, Hypertension, Other Parental Family History Reviewed: Yes Children Family History Reviewed: Yes Sibling(s) Family History Reviewed.: Yes Medication/Allergy Home Medications: Aspirin [Adult Low Dose Aspirin EC] 81 mg PO DAILY 01/25/18 Carvedilol [Coreg 25 mg Tablet] 25 mg PO BID 01/25/18 Furosemide [Lasix 20 mg Tablet] 60 mg PO DAILY 01/25/18 Insulin Glargine,Hum.rec.anlog [Lantus Insulin 100 Unit/mL] 50 units SQ QAM Losartan Potassium [Cozaar 100 mg Tablet] 100 mg PO DAILY 01/25/18 Potassium Chloride [Klor-Con M10] 10 meq PO DAILY 01/25/18 Allergies/Adverse Reactions: morphine Allergy (Verified 11/18/17 13:29) Penicillins Allergy (Verified 11/18/17 13:29) Hives, SOB Review of Systems Review of Systems: As outlined in the HPI, all others negative Physical Exam Vital Signs: Temp Pulse Resp BP Pulse Ox 97.4 F 70 14 138/96 H 96 01/25/18 14:47 01/25/18 16:36 01/25/18 20:31 01/25/18 20:31 01/25/18 20:31 Additional comments: General appearance: Obese, disheveled, alert and cooperative, and appears to be in no acute distress Head: Normocephalic Eyes: PEERL, EOMI, vision is grossly intact. Ears: External auditory canal and tympanic membranes clear, hearing grossly intact. Nose: No nasal discharge. Throat: Oral cavity and pharynx normal. No inflammation, swelling, exudate or lesions. Neck: Neck supple, nontender without lymphadenopathy, masses or thyromegaly. Cardiac: Normal S1 and S2. No S3, S4 or murmurs. Rhythm is regular. There is no cyanosis or pallor. Extremities are warm and well perfused. Capillary refill is less than 2 seconds. No carotid bruits. Lungs: Clear to auscultation and percussion without rales, rhonchi, wheezing, mild bilateral diminished breath sounds. Not using accessory muscles. Abdomen: Positive bowel sounds. Soft. Nondistended, nontender. No guarding or rebound. No masses. No hepatosplenomegaly Extremities: No significant deformity or joint abnormality. No edema. Peripheral pulses intact. No varicosities. Neurological: Cranial nerves II through XII grossly intact. Strength and sensation symmetric and intact throughout. Reflexes 2+ throughout. Skin: Skin normal color, texture and turgor with no lesions or eruptions, warm and dry. Psychiatric: The mental examination revealed the patient was oriented to person , place, and time. The patient was able to demonstrate good judgment on recent , without hallucinations, abnormal affect or abnormal behaviors. Results Laboratory Results: 01/25/18 20:30 Troponin I < 0.012 01/25/18 01/25/18 01/25/18 14:38 14:38 14:38 WBC 6.3 RBC 4.19 L Hgb 11.6 L Hct 35.4 L MCV 85 MCH 27.7 MCHC 32.8 RDW 14.3 H Plt Count 117 L Seg Neutrophils % 52.0 Lymphocytes % 33.5 Monocytes % 11.3 Eosinophils % 2.8 Basophils % 0.4 Absolute Neutrophils 3.3 Absolute Lymphocytes 2.1 Absolute Monocytes 0.7 Absolute Eosinophils 0.2 Absolute Basophils 0.0 VBG pH VBG pCO2 VBG HCO3 VBG Base Excess Sodium 137.6 Potassium 5.6 H Chloride 102 Carbon Dioxide 26 Anion Gap 10 BUN 20 Creatinine 1.69 H Est GFR ( Amer) 49 L Est GFR (Non-Af Amer) 41 L Glucose 307 H Calcium 9.3 Total Bilirubin 0.8 Direct Bilirubin 0.4 AST 46 ALT 40 Alkaline Phosphatase 96 Creatine Kinase 59 CK-MB (CK-2) 0.33 Troponin I < 0.012 Total Protein 6.8 Albumin 3.2 L Urine Color Urine Appearance Ur Specific [place] Urine Protein Urine Glucose (UA) Urine Ketones Urine Blood Urine Nitrite Urine Bilirubin Urine Urobilinogen Ur Leukocyte Esterase Urine WBC (Auto) Urine RBC (Auto) Squamous Epi Cells Auto Urine Mucus (Auto) Urine Ascorbic Acid Urine Opiates Screen Urine Methadone Screen Ur Barbiturates Screen Ur Phencyclidine Scrn Ur Amphetamines Screen U Benzodiazepines Scrn Urine Cocaine Screen U Marijuana (THC) Screen 01/25/18 01/25/18 01/25/18 16:44 20:17 20:17 WBC RBC Hgb Hct MCV MCH MCHC RDW Plt Count Seg Neutrophils % Lymphocytes % Monocytes % Eosinophils % Basophils % Absolute Neutrophils Absolute Lymphocytes Absolute Monocytes Absolute Eosinophils Absolute Basophils VBG pH 7.36 VBG pCO2 51.6 VBG HCO3 28.3 VBG Base Excess 1.9 Sodium Potassium Chloride Carbon Dioxide Anion Gap BUN Creatinine Est GFR ( Amer) Est GFR (Non-Af Amer) Glucose Calcium Total Bilirubin Direct Bilirubin AST ALT Alkaline Phosphatase Creatine Kinase CK-MB (CK-2) Troponin I Total Protein Albumin Urine Color YELLOW Urine Appearance SLIGHTLY-CLOUDY Ur Specific [place] 1.020 Urine Protein 100 H Urine Glucose (UA) >=500 H Urine Ketones NEGATIVE Urine Blood NEGATIVE Urine Nitrite NEGATIVE Urine Bilirubin NEGATIVE Urine Urobilinogen NEGATIVE Ur Leukocyte Esterase NEGATIVE Urine WBC (Auto) 2 Urine RBC (Auto) 0 Squamous Epi Cells Auto 2 Urine Mucus (Auto) RARE Urine Ascorbic Acid 40 H Urine Opiates Screen NEGATIVE Urine Methadone Screen NEGATIVE Ur Barbiturates Screen NEGATIVE Ur Phencyclidine Scrn NEGATIVE Ur Amphetamines Screen NEGATIVE U Benzodiazepines Scrn NEGATIVE Urine Cocaine Screen NEGATIVE U Marijuana (THC) Screen UNCONFIRMED POSITIVE 01/25/18 20:30 WBC RBC Hgb Hct MCV MCH MCHC RDW Plt Count Seg Neutrophils % Lymphocytes % Monocytes % Eosinophils % Basophils % Absolute Neutrophils Absolute Lymphocytes Absolute Monocytes Absolute Eosinophils Absolute Basophils VBG pH VBG pCO2 VBG HCO3 VBG Base Excess Sodium Potassium Chloride Carbon Dioxide Anion Gap BUN Creatinine Est GFR ( Amer) Est GFR (Non-Af Amer) Glucose Calcium Total Bilirubin Direct Bilirubin AST ALT Alkaline Phosphatase Creatine Kinase CK-MB (CK-2) Troponin I < 0.012 Total Protein Albumin Urine Color Urine Appearance Ur Specific [place] Urine Protein Urine Glucose (UA) Urine Ketones Urine Blood Urine Nitrite Urine Bilirubin Urine Urobilinogen Ur Leukocyte Esterase Urine WBC (Auto) Urine RBC (Auto) Squamous Epi Cells Auto Urine Mucus (Auto) Urine Ascorbic Acid Urine Opiates Screen Urine Methadone Screen Ur Barbiturates Screen Ur Phencyclidine Scrn Ur Amphetamines Screen U Benzodiazepines Scrn Urine Cocaine Screen U Marijuana (THC) Screen Impressions: Knee X-Ray 01/25/18 15:53 IMPRESSION: NEGATIVE STUDY OF THE RIGHT KNEE. NO RADIOGRAPHIC EVIDENCE OF ACUTE INJURY. Head CT 01/25/18 15:54 IMPRESSION: NORMAL BRAIN CT WITHOUT CONTRAST. EVIDENCE OF ACUTE STROKE: NO. Assessment & Plan - Diagnosis (1) Syncope Qualifiers: Syncope type: unspecified Qualified Code(s): R55 - Syncope and collapse Is this a current diagnosis for this admission?: Yes Plan: Patient with several episodes of syncope for several days. Unclear etiology. I will go ahead and keep the patient on telemetry monitoring to rule out arrhythmias. I will place an order for an echocardiogram and carotid ultrasound. Unclear if the syncope is related with his marijuana use as I added urine drug screen came back positive. No orthostatic vital signs were done in the ED but his blood pressure improved from 70/62-140 5/ 1:08 liter of IV fluid, questionable dehydration. I will keep him with IV fluids overnight. (2) Coronary artery disease Qualifiers: Coronary Disease-Associated Artery/Lesion type: [place] artery [place] vs. transplanted heart: [place] heart Associated angina: angina presence unspecified Qualified Code(s): I25.10 - Atherosclerotic heart disease of [place] coronary artery without angina pectoris Is this a current diagnosis for this admission?: Yes Plan: CAD status post 4 stents. Patient does not have any complaints of pain. Keep the patient on telemetry monitoring, we are going to cycle his cardiac enzymes x3. Continue home medications. (3) Hypertension Qualifiers: Hypertension type: unspecified secondary hypertension Qualified Code(s): I15.9 - Secondary hypertension, unspecified; I15 - Secondary hypertension Is this a current diagnosis for this admission?: Yes Plan: Initially hypotensive, his blood pressure is trending up, will resume his home antihypertensive medications. (4) Obstructive sleep apnea Is this a current diagnosis for this admission?: Yes Plan: On CPAP (5) CKD (chronic kidney disease), stage III Is this a current diagnosis for this admission?: Yes Plan: Stable (6) Hyperglycemia Is this a current diagnosis for this admission?: Yes Plan: Patient tells me that lately his blood sugar has been trending up to the 500s, in the emergency department was 307. I would keep him on Accu-Cheks every 3 hours overnight with insulin sliding scale and hypoglycemia protocol. Resume home diabetic medications. (7) DVT prophylaxis Is this a current diagnosis for this admission?: Yes Plan: Lovenox - Time Time Spent: 50 to 70 Minutes - Plan Summary Plan Summary: Case discussed with patient, agree with plan
[2018-01-25] MEDS: INSULIN LISPRO 100 UNIT/ML 3 ML VIAL SUBCUT PRN (22:38)
[2018-01-25] MEDS: NORMAL SALINE 1000 ML 1,000 ML IV PRN (22:43)
[2018-01-26 02:36] LABS: HEMATOCRIT 33.4 % (37.9-51.0); MEAN CORPUSCULAR HEMOGLOBIN 27.7 pg (27.0-33.4); MEAN CORPUSCULAR HGB CONC 32.9 g/dL (32.0-36.0); MEAN CORPUSCULAR VOLUME 84 fl (80-97); PLATELET COUNT 100 10^3/uL (150-450); RED BLOOD COUNT 3.96 10^6/uL (4.35-5.55); RED CELL DISTRIBUTION WIDTH 14.2 % (11.5-14.0); WHITE BLOOD COUNT 8.1 10^3/uL (4.0-10.5)
[2018-01-26 02:42] LABS: BLOOD UREA NITROGEN 17 mg/dL (7-20); CALCIUM 8.8 mg/dL (8.4-10.2); GLUCOSE 275 mg/dL (75-110)
[2018-01-26 02:43] LABS: ANION GAP 9 (5-19); CARBON DIOXIDE 25 mmol/L (22-30); CHLORIDE 105 mmol/L (98-107); SODIUM 139.2 mmol/L (137-145)
[2018-01-26 02:51] LABS: POTASSIUM 4.4 mmol/L (3.6-5.0)
[2018-01-26] MEDS: INSULIN LISPRO 100 UNIT/ML 3 ML VIAL SUBCUT PRN ×4 (03:32→17:52)
--- NOTE | 2018-01-26 08:14 | EKG REPORT ---
SEVERITY:- OTHERWISE NORMAL ECG - SINUS RHYTHM BORDERLINE LEFT AXIS DEVIATION : Confirmed by: Quinn Anderson MD 26-Jan-2018 08:13:48
[2018-01-26] MEDS: FUROSEMIDE 20 MG TABLET PO SCH (08:47)
[2018-01-26] MEDS: LOSARTAN POTASSIUM 50 MG TABLET PO SCH (09:56)
[2018-01-26] MEDS: CARVEDILOL 12.5 MG TABLET PO SCH ×2 (09:56→17:52)
[2018-01-26] MEDS: ASPIRIN 81 MG TABLET, ENT COATED PO SCH (09:56)
[2018-01-26] MEDS: ENOXAPARIN SODIUM INJ 40 MG/0.4 ML DISP.SYRIN SUBCUT SCH (09:56)
[2018-01-26] MEDS: INSULIN GLARGINE,HUM.REC.ANLOG 300 UNIT/3 ML INSULN.PEN SUBCUT SCH ×3 (09:57→21:55)
[2018-01-26] MEDS: NORMAL SALINE 1000 ML 1,000 ML IV PRN (10:13)
[2018-01-26] MEDS ORDERED: DEXTROSE 50%-WATER 25 GM/50 ML DISP.SYRIN IV PRN ×2 (14:06)
[2018-01-26] MEDS ORDERED: DEXTROSE 40% GEL 15 GM TUBE PO PRN ×2 (14:06)
[2018-01-26] MEDS ORDERED: GLUCAGON,HUMAN RECOMB 1 MG INJ IM PRN (14:06)
--- NOTE | 2018-01-26 14:18 | PDOC PROGRESS REPORT ---
Subjective Progress Note for:: 01/26/18 Subjective:: 67 year old male with medical history that I will outline below. Patient tells me that he was driving to the store, while in the parking lot he was feeling that his head was buzzing, he saw a light shine bright in his eyes and suddenly passed out, he does not know for how long, apparently people walking around saw him and laid him on the floor and call EMS. Patient had a similar episode in the past yesterday while at home, he was going to the bathroom and fell glass, he hit the back of his head, does not know for how long he was laying on the floor, bystanders did call EMS. He lives with his who is bedridden. He is unsure if he was dehydrated, he thinks that he might not be drinking enough fluids. Denies nausea, vomiting, fever, chills, shortness of breath, chest pain , abdominal pain. His last bowel movement was 2 days ago normal, denies any urinary symptoms. Apparently patient has increase of syncopal episodes for the last 2 weeks. Patient also tells me that his blood sugar has been going up to 500 the last few days, he tells me that his blood sugar has usually been well controlled. Today it was 307 in the ED. Upon EMS arrival his blood pressure was 70/62, after 1 L of IV fluids his blood pressure improved to 145/[address] of the head negative. Patient has been complaining of right knee pain, he had right knee surgery and yesterday he fell onto his right knee, x-ray negative for acute. 01/26/2018 patient alert and awake communicating well. No complaints today. His blood sugars are close to 300s. Blood pressure is 141/90. Weight of 99.2. Reason For Visit: SYNCOPE Physical Exam Vital Signs: Temp Pulse Resp BP Pulse Ox 99.2 F 64 18 141/90 H 96 01/26/18 08:19 01/26/18 08:19 01/26/18 08:19 01/26/18 08:19 01/26/18 08:19 Intake & Output 01/25/18 01/26/18 01/27/18 06:59 06:59 06:59 Intake Total 1591 Balance 1591 Weight 122.6 kg General appearance: PRESENT: no acute distress Head exam: PRESENT: atraumatic Eye exam: PRESENT: PERRLA Mouth exam: PRESENT: moist Neck exam: ABSENT: carotid bruit, JVD, lymphadenopathy, thyromegaly Respiratory exam: PRESENT: clear to auscultation roman. ABSENT: rales, rhonchi, wheezes Pulses: PRESENT: normal [place] pedis pul Neurological exam: PRESENT: alert, awake, oriented to person, oriented to place , oriented to time, oriented to situation, CN II-XII grossly intact. ABSENT: motor sensory deficit Psychiatric exam: ABSENT: agitated, anxious, homicidal ideation, suicidal ideation Results Laboratory Results: 01/26/18 02:23 01/26/18 02:23 01/25/18 01/26/18 01/26/18 20:17 02:23 02:23 WBC 8.1 RBC 3.96 L Hgb 11.0 L Hct 33.4 L MCV 84 MCH 27.7 MCHC 32.9 RDW 14.2 H Plt Count 100 L Sodium 139.2 Potassium 4.4 D Chloride 105 Carbon Dioxide 25 Anion Gap 9 BUN 17 Creatinine 1.28 H Est GFR ( Amer) > 60 Est GFR (Non-Af Amer) 56 L Glucose 275 H Calcium 8.8 Magnesium Urine Color YELLOW Urine Appearance SLIGHTLY-CLOUDY Urine pH 5.0 Ur Specific [place] 1.020 Urine Protein 100 H Urine Glucose (UA) >=500 H Urine Ketones NEGATIVE Urine Blood NEGATIVE Urine Nitrite NEGATIVE Ur Leukocyte Esterase NEGATIVE Urine WBC (Auto) 2 Urine RBC (Auto) 0 01/26/18 02:23 WBC RBC Hgb Hct MCV MCH MCHC RDW Plt Count Sodium Potassium Chloride Carbon Dioxide Anion Gap BUN Creatinine Est GFR ( Amer) Est GFR (Non-Af Amer) Glucose Calcium Magnesium 2.1 Urine Color Urine Appearance Urine pH Ur Specific [place] Urine Protein Urine Glucose (UA) Urine Ketones Urine Blood Urine Nitrite Ur Leukocyte Esterase Urine WBC (Auto) Urine RBC (Auto) 01/25/18 01/26/18 01/26/18 20:30 02:23 08:51 Troponin I < 0.012 < 0.012 < 0.012 Impressions: Knee X-Ray 01/25/18 15:53 IMPRESSION: NEGATIVE STUDY OF THE RIGHT KNEE. NO RADIOGRAPHIC EVIDENCE OF ACUTE INJURY. Head CT 01/25/18 15:54 IMPRESSION: NORMAL BRAIN CT WITHOUT CONTRAST. EVIDENCE OF ACUTE STROKE: NO. Assessment & Plan - Diagnosis (1) Syncope Qualifiers: Syncope type: unspecified Qualified Code(s): R55 - Syncope and collapse Is this a current diagnosis for this admission?: Yes Plan: 01/25/2018Patient with several episodes of syncope for several days. Unclear etiology. I will go ahead and keep the patient on telemetry monitoring to rule out arrhythmias. I will place an order for an echocardiogram and carotid ultrasound. Unclear if the syncope is related with his marijuana use as I added urine drug screen came back positive. No orthostatic vital signs were done in the ED but his blood pressure improved from 70/62-140 5 1:08 liter of IV fluid, questionable dehydration. I will keep him with IV fluids overnight. 01/26/2018 she was admitted for a several episodes of syncope. CT head was negative. Waiting for carotid Doppler and echocardiogram to be done . EKG no acute abnormalities. Alert and awake communicating well. He said he is able to walk around without any problems today. (2) Hypertension Qualifiers: Hypertension type: unspecified secondary hypertension Qualified Code(s): I15.9 - Secondary hypertension, unspecified; I15 - Secondary hypertension Is this a current diagnosis for this admission?: Yes Plan: 01/25/2018Initially hypotensive, his blood pressure is trending up, will resume his home antihypertensive medications. 01/26/2018 Patient came to the emergency room with hypertension blood pressure was low. After receiving IV fluids blood pressure went up to 140/90 home medications were resumed. Presently on losartan 100 mg p.o. daily and carvedilol 25 mg p.o. twice daily. (3) Diabetes mellitus type 2 in obese Is this a current diagnosis for this admission?: Yes Plan: 01/25/2018 Patient tells me that lately his blood sugar has been trending up to the 500s, in the emergency department was 307. I would keep him on Accu-Cheks every 3 hours overnight with insulin sliding scale and hypoglycemia protocol. Resume home diabetic medications. 01/26/2018 sugar is 194. He is on insulin sliding scale, Lantus 50 units in the morning. I am going to add Lantus 20 units nightly. We are going to check hemoglobin A1c. - Time Time Spent with patient: 15-24 minutes Medications reviewed and adjusted accordingly: Yes Anticipated discharge: Home
[2018-01-27] MEDS: FUROSEMIDE 20 MG TABLET PO SCH (08:47)
[2018-01-27] MEDS: INSULIN GLARGINE,HUM.REC.ANLOG 300 UNIT/3 ML INSULN.PEN SUBCUT SCH (08:48)
--- NOTE | 2018-01-27 09:31 | PDOC CONSULTATION ---
Consultation Consult Date: 01/27/18 Consult reason:: Status post fall onto right total knee arthroplasty History of Present Illness Admission Date/PCP: 01/25/18 19:57 MILTON IRVING MD History of Present Illness: RAJAT DANIEL is a 67 year old male status post fall onto his right knee. History of right total knee arthroplasty done by my partner Dr. Irving. Complains of tenderness the superior lateral aspect Of the femur. Patient can weight-bear and can be range of motion as he describes his pain. Denies any swelling of the uterus posteriorly. Denies any numbness tingling or paresthesias. Describes the pain to be 1 out of 5 at rest and about 2 with ambulation. Is 5 out of 5 with palpation. Patient admitted for other reasons. Past Medical History Cardiac Medical History: Reports: Coronary Artery Disease, Myocardial Infarction , Hyperlipidema - takes Atorvastatin r/t cardiac stent, Hypertension Denies: Atrial Fibrillation, Congestive Heart Failure, Peripheral Vascular Disease, Pulmonary Embolism, Heart Murmur Pulmonary Medical History: Reports: Sleep Apnea - CPAP Denies: Asthma, Bronchitis, Chronic Obstructive Pulmonary Disease (COPD), Pneumonia, Respiratory Failure, Tuberculosis Endocrine Medical History: Reports: Diabetes Mellitus Type 2 Denies: Hyperthyroidism, Hypothyroidism Renal/ Medical History: Denies: End Stage Renal Disease Malignancy Medical History: Denies: Lung Cancer GI Medical History: Denies: Crohn's Disease, Gastroesophageal Reflux Disease, Hiatal Hernia Musculoskeltal Medical History: Reports: Arthritis Denies: Fibromyalgia Psychiatric Medical History: Reports: Depression - Anxiety, Post Traumatic Stress Disorder Denies: Bipolar Disorder Past Surgical History Past Surgical History: Reports: Herniorrhaphy - Bilateral Inguinal/Femoral, Orthopedic Surgery - right knee Denies: Appendectomy, Cholecystectomy, Colostomy, Coronary Artery Bypass Graft, Gastric Bypass Surgery, Pacemaker, Tonsillectomy Social History Smoking Status: Never Smoker Frequency of Alcohol Use: Occasional Hx Recreational Drug Use: No Drugs: None Hx Prescription Drug Abuse: No - Advance Directive Resuscitation Status: Full Code Family History Family History: Reviewed & Not Pertinent, DM, Hypertension, Other Parental Family History Reviewed: No Children Family History Reviewed: No Sibling(s) Family History Reviewed.: No Medication/Allergy Home Medications: Aspirin [Adult Low Dose Aspirin EC] 81 mg PO DAILY 01/25/18 Carvedilol [Coreg 25 mg Tablet] 25 mg PO BID 01/25/18 Furosemide [Lasix 20 mg Tablet] 60 mg PO DAILY 01/25/18 Insulin Glargine,Hum.rec.anlog [Lantus Insulin 100 Unit/mL] 50 units SQ QAM Losartan Potassium [Cozaar 100 mg Tablet] 100 mg PO DAILY 01/25/18 Potassium Chloride [Klor-Con M10] 10 meq PO DAILY 01/25/18 Allergies/Adverse Reactions: morphine Allergy (Verified 11/18/17 13:29) Penicillins Allergy (Verified 11/18/17 13:29) Hives, SOB Review of Systems Review of Systems: Constitutional: [PRESENT: as per HPI. ABSENT: chills, fever(s), headache(s), weight gain, weight loss] Eyes: [ABSENT: visual disturbances] Ears: [ABSENT: hearing changes] Cardiovascular: [ABSENT: chest pain, dyspnea on exertion, edema, orthropnea, palpitations] Respiratory: [ABSENT: cough, hemoptysis] Gastrointestinal: [ABSENT: abdominal pain, constipation, diarrhea, hematemesis, hematochezia, nausea, vomiting] Genitourinary: [ABSENT: dysuria, hematuria] Musculoskeletal: As per HPI Integumentary: [ABSENT: rash, wounds] Neurological: [ABSENT: abnormal gait, abnormal speech, confusion, dizziness, focal weakness, syncope] Psychiatric: [ABSENT: anxiety, depression, homicidal ideation, suicidal ideation ] Endocrine: [ABSENT: cold intolerance, heat intolerance, menstrual abnormalities , polydipsia, polyuria] Hematologic/Lymphatic: [ABSENT: easy bleeding, easy bruising, lymphadenopathy] Physical Exam Vital Signs: Temp Pulse Resp BP Pulse Ox 36.8 C 64 18 130/75 H 98 01/27/18 03:39 01/27/18 07:00 01/27/18 03:39 01/27/18 03:39 01/27/18 03:39 Intake & Output 01/26/18 01/27/18 01/28/18 06:59 06:59 06:59 Intake Total 1591 1863 Output Total 825 Balance 1591 1038 Weight 122.6 kg 122.6 kg General appearance: PRESENT: no acute distress Head exam: PRESENT: atraumatic, normocephalic Eye exam: PRESENT: EOMI, other - Symmetric round pupils Ear exam: PRESENT: normal external ear exam. ABSENT: bleeding, drainage Mouth exam: PRESENT: neck supple Neck exam: ABSENT: lymphadenopathy, thyromegaly Respiratory exam: PRESENT: symmetrical, unlabored. ABSENT: accessory muscle use , tachypnea Cardiovascular exam: PRESENT: RRR Vascular exam: PRESENT: normal capillary refill Neurological exam: PRESENT: alert, awake, oriented to person, oriented to place , oriented to time, oriented to situation Psychiatric exam: PRESENT: appropriate affect, normal mood Adult Front & Back Image: 1 - Previous surgical incision is well-healed. No effusion in the right knee. No deformity. No ecchymosis. Tender palpation over the lateral aspect of the patellofemoral component and over the lateral aspect of the femoral component. Range of motion is full extension to about 95-100 degrees of flexion. Stable to varus and valgus stressing. Able to straight leg off of the bed without difficulty. Soft cast with no Homans sign. Neurovascular intact distally. Results Laboratory Results: 01/26/18 02:23 01/26/18 02:23 01/25/18 01/26/18 01/26/18 20:30 02:23 08:51 Troponin I < 0.012 < 0.012 < 0.012 Impressions: Knee X-Ray 01/25/18 15:53 IMPRESSION: NEGATIVE STUDY OF THE RIGHT KNEE. NO RADIOGRAPHIC EVIDENCE OF ACUTE INJURY. Head CT 01/25/18 15:54 IMPRESSION: NORMAL BRAIN CT WITHOUT CONTRAST. EVIDENCE OF ACUTE STROKE: NO. Status: Image reviewed by la - X-rays of the right knee show intact femoral and tibial component with no fracture or dislocation. No osseous abnormalities. Assessment & Plan - Diagnosis (1) Contusion of knee, right Qualifiers: Encounter type: initial encounter Qualified Code(s): S80.01XA - Contusion of right knee, initial encounter Is this a current diagnosis for this admission?: Yes Plan: 67-year-old gentleman with history of right total knee arthroplasty. X-ray showed intact prosthesis despite his mechanical fall onto his right knee. Clinically showing just contusion and swelling but no concerns for fracture or any other pathology. Patient just needs ibuprofen ice and rest. Patient can follow-up with Dr. Irving in the office as needed.
[2018-01-27] MEDS: CARVEDILOL 12.5 MG TABLET PO SCH (09:33)
[2018-01-27] MEDS: LOSARTAN POTASSIUM 50 MG TABLET PO SCH (09:34)
[2018-01-27] MEDS: ASPIRIN 81 MG TABLET, ENT COATED PO SCH (09:34)
[2018-01-27] MEDS: ENOXAPARIN SODIUM INJ 40 MG/0.4 ML DISP.SYRIN SUBCUT SCH (09:37)
[2018-01-27] MEDS: INSULIN LISPRO 100 UNIT/ML 3 ML VIAL SUBCUT PRN (11:31)
[2018-01-27 13:45] VITALS: BP 130/75
--- NOTE | 2018-01-27 13:59 | PDOC DISCHARGE SUMMARY ---
General - Admit/Disc Date/PCP Admission Date/Primary Care Provider: 01/25/18 19:57 MILTON IRVING MD Discharge Date: 01/27/18 - Discharge Diagnosis (1) Syncope Is this a current diagnosis for this admission?: Yes Summary: 01/25/2018Patient with several episodes of syncope for several days. Unclear etiology. I will go ahead and keep the patient on telemetry monitoring to rule out arrhythmias. I will place an order for an echocardiogram and carotid ultrasound. Unclear if the syncope is related with his marijuana use as I added urine drug screen came back positive. No orthostatic vital signs were done in the ED but his blood pressure improved from 70/62-140 5/90 1:08 liter of IV fluid, questionable dehydration. I will keep him with IV fluids overnight. 01/26/2018 she was admitted for a several episodes of syncope. CT head was negative. Waiting for carotid Doppler and echocardiogram to be done . EKG no acute abnormalities. Alert and awake communicating well. He said he is able to walk around without any problems today. 01/27/2018 episodes of syncope, dizziness, falls during the hospital stay. Patient asymptomatic. Echocardiogram and carotid Doppler was done. Unfortunately because the weekend official report is not available. Is expressing desire to go home. Resume to follow-up with his PCP at the [facility]. (2) Hypertension Is this a current diagnosis for this admission?: Yes Summary: 01/25/2018Initially hypotensive, his blood pressure is trending up, will resume his home antihypertensive medications. 01/26/2018 Patient came to the emergency room with hypertension blood pressure was low. After receiving IV fluids blood pressure went up to 140/90 home medications were resumed. Presently on losartan 100 mg p.o. daily and carvedilol 25 mg p.o. twice daily. 01/27/2018 initially patient came with LOW BP pressures. he with IV fluids during the hospital stay. Today's blood pressure is 154/83. We restarted him on losartan 100 mg po daily,carvedilol 25 mg p.o. twice daily. Patient to continue the home medications. (3) Diabetes mellitus type 2 in obese Is this a current diagnosis for this admission?: Yes Summary: 01/25/2018 Patient tells me that lately his blood sugar has been trending up to the 500s, in the emergency department was 307. I would keep him on Accu-Cheks every 3 hours overnight with insulin sliding scale and hypoglycemia protocol. Resume home diabetic medications. 01/26/2018 sugar is 194. He is on insulin sliding scale, Lantus 50 units in the morning. I am going to add Lantus 20 units nightly. We are going to check hemoglobin A1c. 01/27/2018. Initially patient blood sugars in the ER is 500s. The improved to 236 today. Lately he is on Levemir 50 units in the morning Lantus 20 units in the evening. Patient said he has enough Levemir at home. he does want any refills on the medications. Diet exercise and compliant with medication was advised. - Additional Information Resuscitation Status: Full Code Discharge Diet: As Tolerated, Diabetic Discharge Activity: Activity As Tolerated Home Medications: Aspirin [Adult Low Dose Aspirin EC] 81 mg PO DAILY 01/25/18 Carvedilol [Coreg 25 mg Tablet] 25 mg PO BID 01/25/18 Furosemide [Lasix 20 mg Tablet] 60 mg PO DAILY 01/25/18 Insulin Glargine,Hum.rec.anlog [Lantus Insulin 100 Unit/mL] 50 units SQ QAM Losartan Potassium [Cozaar 100 mg Tablet] 100 mg PO DAILY 01/25/18 History of Present Illness History of Present Illness: RAJAT DANIEL is a 67 year old male with medical history that I will outline below. Patient tells me that he was driving to the store, while in the parking lot he was feeling that his head was buzzing, he saw a light shine bright in his eyes and suddenly passed out, he does not know for how long, apparently people walking around saw him and laid him on the floor and call EMS. Patient had a similar episode in the past yesterday while at home, he was going to the bathroom and fell glass, he hit the back of his head, does not know for how long he was laying on the floor, bystanders did call EMS. He lives with his who is bedridden. He is unsure if he was dehydrated, he thinks that he might not be drinking enough fluids. Denies nausea, vomiting, fever, chills, shortness of breath, chest pain , abdominal pain. His last bowel movement was 2 days ago normal, denies any urinary symptoms. Apparently patient has increase of syncopal episodes for the last 2 weeks. Patient also tells me that his blood sugar has been going up to 500 the last few days, he tells me that his blood sugar has usually been well controlled. Today it was 307 in the ED. Upon EMS arrival his blood pressure was 70/62, after 1 L of IV fluids his blood pressure improved to 145/[address] of the head negative. Patient has been complaining of right knee pain, he had right knee surgery and yesterday he fell onto his right knee, x-ray negative for acute. Physical Exam Vital Signs: Temp Pulse Resp BP Pulse Ox 98.6 F 62 15 130/75 H 100 01/27/18 13:42 01/27/18 13:42 01/27/18 13:42 01/27/18 13:42 01/27/18 13:42 Intake & Output 01/26/18 01/27/18 01/28/18 06:59 06:59 06:59 Intake Total 1591 1863 Output Total 825 Balance 1591 1038 Weight 122.6 kg 122.6 kg General appearance: PRESENT: no acute distress Head exam: PRESENT: atraumatic Eye exam: PRESENT: PERRLA Neck exam: ABSENT: carotid bruit, JVD, lymphadenopathy, thyromegaly Cardiovascular exam: PRESENT: RRR. ABSENT: diastolic murmur, rubs, systolic murmur GI/Abdominal exam: PRESENT: normal bowel sounds, soft. ABSENT: distended, guarding, mass, organolmegaly, rebound, tenderness Neurological exam: PRESENT: alert, awake, oriented to person, oriented to place , oriented to time, oriented to situation, CN II-XII grossly intact. ABSENT: motor sensory deficit Psychiatric exam: PRESENT: appropriate affect, normal mood. ABSENT: homicidal ideation, suicidal ideation Results Laboratory Results: 01/26/18 02:23 01/26/18 02:23 01/25/18 01/26/18 01/26/18 20:30 02:23 08:51 Troponin I < 0.012 < 0.012 < 0.012 Impressions: Knee X-Ray 01/25/18 15:53 IMPRESSION: NEGATIVE STUDY OF THE RIGHT KNEE. NO RADIOGRAPHIC EVIDENCE OF ACUTE INJURY. Head CT 01/25/18 15:54 IMPRESSION: NORMAL BRAIN CT WITHOUT CONTRAST. EVIDENCE OF ACUTE STROKE: NO. Qualifiers - * PATIENT BEING DISCHARGED WITH ANY OF THE FOLLOWING DIAGNOSIS: No VTE patient discharged on overlapping Therapy?: Yes
--- NOTE | 2018-01-28 09:00 | RADIOLOGY REPORT (SQ) ---
EXAM DESCRIPTION: CAROTID DOPPLER COMPLETED DATE/TIME: 01/26/2018 4:42 pm REASON FOR STUDY: Syncope COMPARISON: None. TECHNIQUE: Grayscale ultrasound, Doppler velocity and spectra, and color Doppler images acquired of the extra-cranial carotid and vertebral arteries. Images stored on PACS. LIMITATIONS: None. FINDINGS: RIGHT CAROTID CCA Velocities: Within normal limits. ICA Velocities Peak systolic 116 cm/s. End diastolic 31.4 cm/s. Proximal ICA/CCA peak systolic ratio 0.7. Spectra normal. No significant plaque. LEFT CAROTID CCA Velocities: Within normal limits. ICA Velocities Peak systolic 61.8 cm/s. End diastolic 23.2 cm/s. Proximal ICA/CCA peak systolic ratio 0.9. Spectra normal. No significant plaque. VERTEBRAL ARTERIES: Antegrade flow. Normal waveforms. SUBCLAVIAN ARTERIES: No finding. OTHER: No other significant finding. IMPRESSION: 1. NO HEMODYNAMICALLY SIGNIFICANT STENOSIS. COMMENT: Quality ID #195: Velocity criteria are extrapolated from the diameter data as defined by t he Society of Radiologists in Ultrasound Consensus Conference. Radiology 2003: 229; 340-346. TECHNICAL DOCUMENTATION: JOB ID: [id number] [employer]- All Rights Reserved Reading location - IP/workstation name: [email or web address]
--- NOTE | 2018-01-28 18:42 | XCELERA REPORT ---
[address] [address] Transthoracic Echocardiogram Report Name: RAJAT DANIEL Age: 67 yrs Gender: Male : 1950 Patient Status: Inpatient Patient Location: [address] [place] [address] Study Date: 01/26/2018 03:56 PM Height: 73 in Weight: 265 lb BSA: 2.4 m2 Procedure: A complete two-dimensional transthoracic echocardiogram was performed (2D, M-mode, spectral and color flow Doppler). The study was technically difficult with many images being suboptimal in quality. Reason For Study: Syncope Ordering Physician: DIALLO TORRES Performed By: Karina Wills Interpretation Summary The Ejection Fraction estimate is 50-55% Left ventricular systolic function is borderline reduced. The left ventricle is grossly normal size. Doppler measurements suggest impaired left ventricular relaxation, which is associated with grade I/IV or mild diastolic dysfunction There is mild concentric left ventricular hypertrophy. Regional wall motion abnormalities cannot be excluded due to limited visualization. The right ventricular systolic function is normal. The left atrial size is normal. The right atrium is normal in size There is no mitral valve stenosis. There is a trace amount of mitral regurgitation No aortic regurgitation is present. There is no aortic valve stenosis There is a trace or physiologic amount of tricuspid regurgitation There is no tricuspid stenosis. The inferior vena cava appeared normal and decreased > 50% with respiration (RAP 5-10 mmHg) The aortic root is not well visualized but is probably normal size. There is no pericardial effusion. May consider mobile cardiac telemetry monitoring (MCT) for ruling out transient AFIB, arrhythmia as caause of syncope. MMode/2D Measurements & Calculations RVDd: 3.2 cm LVIDd: 4.5 cm FS: 27.7 % Ao root diam: 3.6 cm IVSd: 1.6 cm LVIDs: 3.3 cm EDV(Teich): 93.1 ml Ao root area: 10.2 cm2 LVPWd: 1.6 cm ESV(Teich): 43.0 ml LA dimension: 3.3 cm EF(Teich): 53.8 % LVOT diam: 2.2 cm LVOT area: 3.7 cm2 Doppler Measurements & Calculations MV E max tiffany: MV P1/2t max tiffany: Ao V2 max: LV V1 max P.5 cm/sec 41.5 cm/sec 133.0 cm/sec 3.3 mmHg MV A max tiffany: MV P1/2t: 109.6 msec Ao max PG: LV V1 max: 60.2 cm/sec MVA(P1/2t): 2.0 cm2 7.1 mmHg 90.8 cm/sec MV E/A: 0.67 MV dec slope: CHRISTELLE(V,D): 2.6 cm2 110.8 cm/sec2 PA V2 max: MV P1/2t-pr_phl: 103.2 cm/sec 109.6 msec PA max P.3 mmHg Left Ventricle The left ventricle is grossly normal size. There is mild concentric left ventricular hypertrophy. Left ventricular systolic function is borderline reduced. The Ejection Fraction estimate is 50-55%. Doppler measurements suggest impaired left ventricular relaxation, which is associated with grade I/IV or mild diastolic dysfunction. Regional wall motion abnormalities cannot be excluded due to limited visualization. Right Ventricle The right ventricle is grossly normal size. There is normal right ventricular wall thickness. The right ventricular systolic function is normal. Atria The right atrium is normal in size. The left atrial size is normal. Interarterial septum not well visualized and not well dopplered. Cannot comment on ASD/PFO presence. Mitral Valve The mitral valve is grossly normal. There is no mitral valve stenosis. There is a trace amount of mitral regurgitation. Aortic Valve The aortic valve opens well. There is no aortic valve stenosis. No aortic regurgitation is present. Tricuspid Valve The tricuspid valve is not well visualized secondary to technical limitations. There is no tricuspid stenosis. There is a trace or physiologic amount of tricuspid regurgitation. Pulmonic Valve The pulmonic valve is not well visualized. Great Vessels The aortic root is not well visualized but is probably normal size. The inferior vena cava appeared normal and decreased > 50% with respiration (RAP 5-10 mmHg). Effusions There is no pericardial effusion. Incidental Findings May consider mobile cardiac telemetry monitoring (MCT) for ruling out transient AFIB. : DIALLO TORRES > Amadeo Benitez
== END 2018-01-27 14:47 | disposition home or self-care (01) ==
LOC: ER 14:26 → EH 19:57 → INTOOBSV 19:57 → 4N 21:09
PROVIDERS: ADMIT Internal Medicine; ATTEND Internal Medicine
DX: R55 Syncope and collapse (principal); R42 Dizziness and giddiness; E11.65 Type 2 diabetes mellitus with hyperglycemia; E66.9 Obesity, unspecified; E11.22 Type 2 diabetes mellitus with diabetic chronic kidney disease; I12.9 Hypertensive chronic kidney disease with stage 1 through stage 4 chronic kidney disease, or unspecified chronic kidney disease; N18.3 Chronic kidney disease, stage 3 (moderate); G47.33 Obstructive sleep apnea (adult) (pediatric); S80.01XA Contusion of right knee, initial encounter; W19.XXXA Unspecified fall, initial encounter; Y92.481 Parking lot as the place of occurrence of the external cause; Y92.009 Unspecified place in unspecified non-institutional (private) residence as the place of occurrence of the external cause; M25.561 Pain in right knee; E78.5 Hyperlipidemia, unspecified; I25.10 Atherosclerotic heart disease of native coronary artery without angina pectoris; F12.90 Cannabis use, unspecified, uncomplicated; R53.1 Weakness; L80 Vitiligo; R14.0 Abdominal distension (gaseous); E87.5 Hyperkalemia; I25.2 Old myocardial infarction; Z79.4 Long term (current) use of insulin; Z96.651 Presence of right artificial knee joint; Z79.82 Long term (current) use of aspirin; Z79.899 Other long term (current) drug therapy; Z95.5 Presence of coronary angioplasty implant and graft; Z98.890 Other specified postprocedural states; Z82.49 Family history of ischemic heart disease and other diseases of the circulatory system
CPT/HCPCS: 93005; 99285; 96360; 96361; 36415 ×3; 82553; 82962 ×3; 82550; 83735; 85025; 85027; 80048; 80053; 81001; 84484 ×2; 80307; 83036 ×2; 82803; 93306; 93880; 73564; 70450; 93010; G0378 ×4; J1815 ×4; J1650 ×2; J3490 ×2; J7030 ×2

== ENCOUNTER 2018-02-10 23:00 | Emergency (ER) | payer OTHER, MEDICARE ==
[2018-02-10] MEDS ORDERED: HYDROMORPHONE HCL INJ/PF 2 MG/ML AMPULE IV ONE (23:13)
--- NOTE | 2018-02-10 23:25 | ER Document Report ---
ED General - General Chief Complaint: Fall Stated Complaint: FALL Time Seen by Provider: 02/10/18 23:06 Notes: Patient is a 59-year-old male who presents with complaint of pain in his left ribs after a fall. He passed out 3 times today. He was recently admitted to the hospital due to syncopal episodes. At that time he was initially found to be hypotensive which responded to IV fluids. He was admitted and his blood pressure medications were held during his stay but then they restarted when he was discharged home. Since going home he continues to have dizziness and passing out episodes when he first stands up. Tonight he fell again and laid on his left ribs and now has pain in his left ribs. He also has pain in his left knee and left ankle. He does not think is hit his head however he did have some loss of consciousness. He is not on blood thinner medications. He has no other complaints at this time. Denies palpitations. He denies chest pain other than left rib pain. He denies abdominal pain. He denies recent fevers or infections. TRAVEL OUTSIDE OF THE [place] IN LAST 30 DAYS: No - Related Data Allergies/Adverse Reactions: morphine Allergy (Verified 11/18/17 13:29) Penicillins Allergy (Verified 11/18/17 13:29) Hives, SOB Past Medical History - Social History Smoking Status: Never Smoker Chew tobacco use (# tins/day): No Frequency of alcohol use: None Drug Abuse: None Family History: Reviewed & Not Pertinent, DM, Hypertension, Other Patient has suicidal ideation: No Patient has homicidal ideation: No - Past Medical History Cardiac Medical History: Reports: Hx Coronary Artery Disease, Hx Heart Attack, Hx Hypercholesterolemia - takes Atorvastatin r/t cardiac stent, Hx Hypertension Denies: Hx Atrial Fibrillation, Hx Congestive Heart Failure, Hx Peripheral Vascular Disease, Hx Pulmonary Embolism, Hx Heart Murmur Pulmonary Medical History: Reports: Hx Sleep Apnea - CPAP Denies: Hx Asthma, Hx Bronchitis, Hx COPD, Hx Pneumonia, Hx Respiratory Failure, Hx Tuberculosis Endocrine Medical History: Reports: Hx Diabetes Mellitus Type 2. Denies: Hx Graves' Disease, Hx Hyperthyroidism, Hx Hypothyroidism Renal/ Medical History: Reports: Hx Kidney Stones. Denies: Hx Benign Prostatic Hyperplasia, Hx End Stage Renal Disease, Hx Peritoneal Dialysis Malignancy Medical History: Denies Hx Lung Cancer GI Medical History: Denies: Hx Crohn's Disease, Hx Gastroesophageal Reflux Disease, Hx Hiatal Hernia, Hx Irritable Bowel, Hx Liver Failure, Hx Pancreatitis, Hx Ulcer Musculoskeletal Medical History: Reports Hx Arthritis, Denies Hx Fibromyalgia, Denies Hx Muscular Dystrophy Psychiatric Medical History: Reports: Hx Depression - Anxiety, Hx Post Traumatic Stress Disorder Denies: Hx Bipolar Disorder, Hx Schizophrenia Traumatic Medical History: Denies: Hx Fractures Past Surgical History: Reports: Hx Abdominal Surgery - hernia repair, Hx Herniorrhaphy - Bilateral Inguinal/Femoral, Hx Orthopedic Surgery - right knee. Denies: Hx Appendectomy, Hx Bowel Surgery, Hx Cholecystectomy, Hx Colostomy, Hx Coronary Artery Bypass Graft, Hx Gastric Bypass Surgery, Hx Pacemaker, Hx Tonsillectomy - Immunizations Hx Diphtheria, Pertussis, Tetanus Vaccination: Yes Review of Systems - Review of Systems Notes: My Normal Review Basic REVIEW OF SYSTEMS: CONSTITUTIONAL : Denies fever, chills, or sweats. Denies recent illness. EENT: Denies eye, ear, throat, or mouth pain or symptoms. Denies nasal or sinus congestion. CARDIOVASCULAR: Denies chest pain. RESPIRATORY: Denies cough, cold, or chest congestion. Denies shortness of breath, difficulty breathing, or wheezing. GASTROINTESTINAL: Denies abdominal pain. Denies nausea, vomiting, or diarrhea. GENITOURINARY: Denies difficulty urinating, painful urination, burning, frequency, or blood in urine. MUSCULOSKELETAL: Over left ribs, left knee, left ankle. SKIN: Denies rash or skin lesions. HEMATOLOGIC : Denies easy bruising or bleeding. NEUROLOGICAL: syncopal episode. No focal weakness or numbness. ALL OTHER SYSTEMS REVIEWED AND NEGATIVE. Physical Exam - Vital signs Vitals: Resp 17 02/10/18 23:06 - Notes Notes: General Appearance: Well nourished, alert, cooperative, no acute distress, moderate obvious discomfort. Vitals: reviewed, See vital signs table. Head: no swelling or tenderness to the head Eyes: PERRL, EOMI, Conjuctiva clear Mouth: No decreasd moisture Neck: Supple, no neck tenderness, No thyromegaly Lungs: No wheezing, No rales, No rhonci, No accessory muscle use, good air exchange bilaterally. Heart: Normal rate, Regular rythm, No murmur, no rub Abdomen: Normal BS, soft, No rigidity, No abdominal tenderness, No guarding, no rebound, no abdominal masses, no organomegaly Extremities: strength 5/5 in all extremities, good pulses in all extremities, no swelling or tenderness in the extremities, no edema. Skin: Vitiligo Neuro: speech clear, oriented x 3, normal affect, responds appropriately to questions. Cranial nerves 2 through 12 are intact. Distal sensation intact. Patient is able move all extremities however does have some pain with movement of left lower extremity. No focal weakness on exam. Course - Re-evaluation Re-evalutation: 02/11/18 05:46 Suspect the patient is probably having orthostatic syncope based on the fact that he reports that he only gets dizzy or passes out when he stands up. This also occurred when he was admitted before. When he was first admitted to the hospital he was initially hypotensive when he first arrived to the ER that resolved. He was restarted back on his blood pressure medications. I suspect this could be part of the problem. He is on carvedilol which may be keeping his heart rate from increasing to compensate for low blood pressure when he first stands up. He takes 2 tablets in the morning. I encouraged him to decrease this to 1 tablet in the morning. Patient x-rays are normal. He otherwise feels well. He says he feels good to go home. He says usually walks with a cane but he does have a walker at home which he does not typically use. I strongly encouraged him to use a walker for more support. I informed him to return to the ER for reevaluation if he continues to have recurrent dizziness or passing out episodes despite decreasing his carvedilol. I do not feel that he requires admission at this time as the patient was just recently admitted and had a thorough workup for syncope. He had carotid Dopplers as well as continuous cardiac monitoring. He also had a CT scan of his head. All this was negative. I feel the patient is safe to be discharged home at this time. - Vital Signs Vital signs: Temp Pulse Resp BP Pulse Ox 99.0 F 12 146/83 H 88 L 02/10/18 23:09 02/11/18 05:01 02/11/18 05:00 02/11/18 05:01 - Laboratory Result Diagrams: 02/11/18 00:10 02/11/18 00:10 Laboratory results interpreted by me: 02/11/18 02/11/18 02/11/18 00:10 00:10 01:53 Hgb 12.4 L RDW 14.4 H Plt Count 149 L Creatinine 1.42 H Est GFR (Non-Af Amer) 50 L Glucose 291 H Alkaline Phosphatase 127 H Urine Protein 100 H Urine Glucose (UA) >=500 H Discharge - Discharge Clinical Impression: Fall Qualifiers: Encounter type: initial encounter Qualified Code(s): W19.XXXA - Unspecified fall, initial encounter Syncope Qualifiers: Syncope type: unspecified Qualified Code(s): R55 - Syncope and collapse Contusion of rib on left side Qualifiers: Encounter type: initial encounter Qualified Code(s): S20.212A - Contusion of left front wall of thorax, initial encounter Ankle pain, left Qualifiers: Chronicity: acute Qualified Code(s): M25.572 - Pain in left ankle and joints of left foot Knee pain, left Qualifiers: Chronicity: acute Qualified Code(s): M25.562 - Pain in left knee Condition: Good Disposition: HOME, SELF-CARE Additional Instructions: I suspect your passing out episodes are related to your blood pressure me dication based on the fact your passing out occurs immediately after standing up and you had documented low blood pressure last time you presented to the ER after passing out. I will have you decrease your dose of Carveidolol form 2 tablets daily down to 1 tablet daily. I suspect this will help. Please use your walker instead of your cane for the next week for added stability. Please return to the ER immediately if you have recurrent passing out episodes, chest pain, severe headache, or feel unwell in any way. Follow up with your doctor this week for reevaluation and for revaluation of your medication regimen. [facility]errals[facility] [[facility] - 02/13/18
--- NOTE | 2018-02-10 23:58 | RADIOLOGY REPORT (SQ) ---
EXAM DESCRIPTION: CT HEAD WITHOUT IV CONTRAST COMPLETED DATE/TME: 02/10/2018 23:13 CLINICAL HISTORY: 67 years, Male, trauma, fall COMPARISON: EXAM DESCRIPTION: CLINICAL HISTORY: trauma, fall COMPARISON: None Available TECHNIQUE: Contiguous axial CT images of the head were obtained. Coronal and sagittal reconstructions were created from the axial data. This exam was performed according to our departmental dose-optimization program, which includes automated exposure control, adjustment of the mA and/or kV according to patient size and/or use of iterative reconstruction technique. FINDINGS: There is no evidence of acute mass, mass effect, midline shift or hemorrhage. The ventricles and extra-axial CSF spaces are unremarkable. The brain parenchyma appears normal for the patient's age. No acute abnormalities of the bones is seen. IMPRESSION: No acute intracranial abnormality. TECHNIQUE: Images stored on PACS. All CT scanners at this facility use dose modulation, iterative reconstruction, and/or weight based dosing when appropriate to reduce radiation dose to as low as reasonably achievable (ALARA). [facility]: Dose Right [facility]: CareDose [facility]: Dose Right [facility]: Teradose 4D [facility]: [employer] LIMITATIONS: None. FINDINGS: IMPRESSION: TECHNICAL DOCUMENTATION: Quality ID # [id number]: Final reports with documentation of one or more dose reduction techniques (e.g., Automated exposure control, adjustment of the mA and/or kV according to patient size, use of iterative reconstruction technique) copyright 2011 [employer]- All Rights Reserved
--- NOTE | 2018-02-11 00:11 | RADIOLOGY REPORT (SQ) ---
EXAM DESCRIPTION: XR KNEE 4 OR MORE VIEWS COMPLETED DATE/TME: 02/10/2018 23:13 CLINICAL HISTORY: 67 years, Male, trauma COMPARISON: None. FINDINGS: 3 views of the left knee. No acute fracture or dislocation. Normal osseous mineralization. Atherosclerotic vascular calcification. No definite joint effusion. Mild 3 compartment joint space narrowing and marginal osteophytosis. IMPRESSION: 1. No acute fracture or dislocation. copyright 2010 [employer]- All Rights Reserved
--- NOTE | 2018-02-11 00:12 | RADIOLOGY REPORT (SQ) ---
CLINICAL INDICATION: 67-year-old male with severe left lower rib pain and axillary pain TECHNICAL DATA: Four views of the left sided ribs were performed as well as a PA chest performed on 02/10/2018 at 11:48 PM. COMPARISONS: Prior study performed on 11/18/2017. FINDINGS: Four views of the left-sided ribs were performed and reveal age indeterminant nondisplaced fractures of the lateral left seventh and eighth ribs. No focal lytic or sclerotic bone lesions are identified. No definite pneumothorax is seen. No definite soft tissue abnormalities are identified. The lungs are well expanded and clear. The cardiac silhouette and pulmonary vascularity are within normal limits. There is tortuosity of the thoracic aorta. IMPRESSION: 1. Age indeterminate nondisplaced fractures of the lateral left seventh and eighth ribs. 2. No acute intrathoracic disease. 3. Tortuosity of the thoracic aorta.
--- NOTE | 2018-02-11 00:16 | RADIOLOGY REPORT (SQ) ---
EXAM DESCRIPTION: XR ANKLE 2 VIEWS COMPLETED DATE/TME: 02/10/2018 23:13 CLINICAL HISTORY: 67 years, Male, trauma COMPARISON: None. NUMBER OF VIEWS: 2 TECHNIQUE: 2 views of the left ankle LIMITATIONS: None. FINDINGS: Osteopenia. Diffuse soft tissue swelling. Negative for acute fracture or dislocation. Vascular calcium occasions. Prominent plantar heel spur. IMPRESSION: No acute osseous abnormality. Osteopenia. Calcaneal spur copyright 2010 [employer]- All Rights Reserved
[2018-02-11] MEDS ORDERED: HYDROMORPHONE HCL INJ/PF 2 MG/ML AMPULE IV ONE (00:30)
[2018-02-11 00:31] LABS: ABSOLUTE EOSINOPHILS # (AUTO) 0.1 10^3/uL (0.0-0.6); ABSOLUTE LYMPHOCYTES (AUTO) 1.8 10^3/uL (0.5-4.7); ABSOLUTE MONOCYTES (AUTO) 0.8 10^3/uL (0.1-1.4); BASOPHILS % (AUTO) 0.3 % (0-2); EOSINOPHILS % (AUTO) 1.6 % (0-6); HEMATOCRIT 37.9 % (37.9-51.0); HEMOGLOBIN 12.4 g/dL (13.5-17.0); MEAN CORPUSCULAR HEMOGLOBIN 27.8 pg (27.0-33.4); MEAN CORPUSCULAR HGB CONC 32.7 g/dL (32.0-36.0); MEAN CORPUSCULAR VOLUME 85 fl (80-97); MONOCYTES % (AUTO) 10.9 % (3-13); PLATELET COUNT 149 10^3/uL (150-450); RED BLOOD COUNT 4.46 10^6/uL (4.35-5.55); RED CELL DISTRIBUTION WIDTH 14.4 % (11.5-14.0); SEGMENTED NEUTROPHILS % (AUTO) 64.2 % (42-78); TOTAL CELLS COUNTED % (AUTO) 100 %; WHITE BLOOD COUNT 7.8 10^3/uL (4.0-10.5)
[2018-02-11 00:50] LABS: ALANINE AMINOTRANSFERASE 42 U/L (21-72); ALBUMIN 3.7 g/dL (3.5-5.0); ALKALINE PHOSPHATASE 127 U/L (38-126); ANION GAP 7 (5-19); ASPARTATE AMINO TRANSFERASE 42 U/L (17-59); BILIRUBIN,DIRECT 0.3 mg/dL (0.0-0.4); BILIRUBIN,TOTAL 0.8 mg/dL (0.2-1.3); BLOOD UREA NITROGEN 19 mg/dL (7-20); CALCIUM 9.2 mg/dL (8.4-10.2); CARBON DIOXIDE 30 mmol/L (22-30); CHLORIDE 101 mmol/L (98-107); GLUCOSE 291 mg/dL (75-110); POTASSIUM 4.3 mmol/L (3.6-5.0); TOTAL PROTEIN 7.1 g/dL (6.3-8.2)
[2018-02-11 02:08] LABS: APPEARANCE,URINE SLIGHTLY-CLOUDY; BILIRUBIN,URINE NEGATIVE (NEGATIVE); COLOR,URINE YELLOW; GLUCOSE, URINE >=500 mg/dL (NEGATIVE); KETONES,URINE NEGATIVE (NEGATIVE); LEUKOCYTE ESTERASE,URINE NEGATIVE (NEGATIVE); NITRITE,URINE NEGATIVE (NEGATIVE); PROTEIN,URINE 100 mg/dL (NEGATIVE); UROBILINOGEN,URINE NEGATIVE mg/dL (<2.0)
[2018-02-11 02:30] LABS: URINE AMPHETAMINES SCREEN NEGATIVE; URINE BARBITURATES SCREEN NEGATIVE; URINE BENZODIAZEPINES SCREEN NEGATIVE; URINE COCAINE SCREEN NEGATIVE; URINE MARIJUANA (THC) SCREEN UNCONFIRMED POSITIVE; URINE METHADONE SCREEN NEGATIVE; URINE PHENCYCLIDINE SCREEN NEGATIVE
[2018-02-11 07:34] VITALS: BP 180/93
== END 2018-02-11 07:57 | disposition home or self-care (01) ==
LOC: ER 23:00
DX: S20.212A Contusion of left front wall of thorax, initial encounter (principal); R07.81 Pleurodynia; R55 Syncope and collapse; M25.572 Pain in left ankle and joints of left foot; M25.562 Pain in left knee; W19.XXXA Unspecified fall, initial encounter; I25.10 Atherosclerotic heart disease of native coronary artery without angina pectoris; I10 Essential (primary) hypertension; E11.9 Type 2 diabetes mellitus without complications; Z79.899 Other long term (current) drug therapy
CPT/HCPCS: 96376; 99285; 96374; 36415; 85025; 80053; 81001; 84484; 80307; 73600; 73564; 71101; 70450; J1170 ×2

== ENCOUNTER 2018-02-12 16:46 | Emergency (ER) | payer OTHER, MEDICARE ==
[2018-02-12] MEDS ORDERED: CLONIDINE HCL 0.1 MG TABLET PO ONE (17:30)
--- NOTE | 2018-02-12 17:38 | ER Document Report ---
ED General - General Stated Complaint: GENERAL WEAKNESS Time Seen by Provider: 02/12/18 17:22 Mode of Arrival: Medic Notes: 67-year-old male presents the emergency department for complaints of abnormal blood pressure and left-sided chest pain. Patient was admitted to the hospital 3 weeks ago for recurrent hypotension and syncopal episodes. He had a negative workup inpatient. No arrhythmias appreciated in the hospital. He states that he was just in the emergency department 2 days ago for syncope and L sided rib pain. He was told to decrease his carvedilol to 1 tab in the morning to see if this helped his syncope. Patient states that he has not taken any of his hypertensive medications in the last 2 days for fear of dropping his blood pressure and having another syncopal episode. He went to Dr. Myers's office today to follow up and there was concern about his hypertension. Patient was [facility] and he was found to be hypotensive and sent to the ED. Patient denies syncopal episode. TRAVEL OUTSIDE OF THE [place] IN LAST 30 DAYS: No - HPI Onset: Other - 3 weeks Onset/Duration: Persistent Quality of pain: No pain Severity: None Pain Level: Denies Associated symptoms: None Exacerbated by: Denies Relieved by: Denies Similar symptoms previously: Yes Recently seen / treated by doctor: Yes - Related Data Allergies/Adverse Reactions: morphine Allergy (Verified 11/18/17 13:29) Penicillins Allergy (Verified 11/18/17 13:29) Hives, SOB Past Medical History - General Information source: Patient - Social History Smoking Status: Never Smoker Family History: Reviewed & Not Pertinent, DM, Hypertension, Other - Past Medical History Cardiac Medical History: Reports: Hx Coronary Artery Disease, Hx Heart Attack, Hx Hypercholesterolemia - takes Atorvastatin r/t cardiac stent, Hx Hypertension Denies: Hx Atrial Fibrillation, Hx Congestive Heart Failure, Hx Peripheral Vascular Disease, Hx Pulmonary Embolism, Hx Heart Murmur Pulmonary Medical History: Reports: Hx Sleep Apnea - CPAP Denies: Hx Asthma, Hx Bronchitis, Hx COPD, Hx Pneumonia, Hx Respiratory Failure, Hx Tuberculosis Endocrine Medical History: Reports: Hx Diabetes Mellitus Type 2. Denies: Hx Graves' Disease, Hx Hyperthyroidism, Hx Hypothyroidism Renal/ Medical History: Reports: Hx Kidney Stones. Denies: Hx Benign Prostatic Hyperplasia, Hx End Stage Renal Disease, Hx Peritoneal Dialysis Malignancy Medical History: Denies Hx Lung Cancer GI Medical History: Denies: Hx Crohn's Disease, Hx Gastroesophageal Reflux Disease, Hx Hiatal Hernia, Hx Irritable Bowel, Hx Liver Failure, Hx Pancreatitis , Hx Ulcer Musculoskeletal Medical History: Reports Hx Arthritis, Denies Hx Fibromyalgia, Denies Hx Muscular Dystrophy Psychiatric Medical History: Reports: Hx Depression - Anxiety, Hx Post Traumatic Stress Disorder Denies: Hx Bipolar Disorder, Hx Schizophrenia Traumatic Medical History: Denies: Hx Fractures Past Surgical History: Reports: Hx Abdominal Surgery - hernia repair, Hx Herniorrhaphy - Bilateral Inguinal/Femoral, Hx Orthopedic Surgery - right knee. Denies: Hx Appendectomy, Hx Bowel Surgery, Hx Cholecystectomy, Hx Colostomy, Hx Coronary Artery Bypass Graft, Hx Gastric Bypass Surgery, Hx Pacemaker, Hx Tonsillectomy - Immunizations Hx Diphtheria, Pertussis, Tetanus Vaccination: Yes Review of Systems - Review of Systems Constitutional: No symptoms reported EENT: No symptoms reported Cardiovascular: Chest pain Respiratory: No symptoms reported Gastrointestinal: No symptoms reported Genitourinary: No symptoms reported Musculoskeletal: No symptoms reported Skin: No symptoms reported Hematologic/Lymphatic: No symptoms reported Neurological/Psychological: No symptoms reported -: Yes All other systems reviewed and negative Physical Exam - Vital signs Vitals: BP Pulse Ox 205/100 H 96 02/12/18 16:58 02/12/18 16:58 - Notes Notes: PHYSICAL EXAMINATION: GENERAL: Well-appearing, well-nourished and in no acute distress. HEAD: Atraumatic, normocephalic. EYES: Pupils equal round and reactive to light, extraocular movements intact, sclera anicteric, conjunctiva are normal. ENT: Nares patent, oropharynx clear without exudates. Moist mucous membranes. NECK: Normal range of motion, supple without lymphadenopathy LUNGS: Breath sounds clear to auscultation bilaterally and equal. No wheezes rales or rhonchi. L chest tenderness to palpation. HEART: Regular rate and rhythm without murmurs ABDOMEN: Soft, nontender, nondistended abdomen. No guarding, no rebound. No masses appreciated. Musculoskeletal: Normal range of motion, no pitting or edema. No cyanosis. NEUROLOGICAL: Cranial nerves grossly intact. Normal speech, normal gait. Normal sensory, motor exams PSYCH: Normal mood, normal affect. SKIN: Warm, Dry, normal turgor, no rashes or lesions noted. Course - Re-evaluation Re-evalutation: 02/12/18 17:45 EKG: Ventricular rate 62, WA interval 152, castration 98, QTc 443, sinus rhythm , left axis deviation, no ST segment elevation. 02/12/18 21:34 Physical exam remarkable for L sided chest wall tenderness with palpation. Labs and imaging obtained. Chest xray does not show an acute process. Troponins negative x2. EKG did not show any ST segment elevation. Patient's orthostatic vital signs were positive. Patient has been asymptomatic while in the emergency department. Blood pressure has decreased. It is currently 143/84. I will discharge the patient home. I instructed him to go from sitting to standing slowing, to follow-up with his primary care physician this week, to continue taking his medications as directed, and to return for any worsening symptoms. 02/12/18 21:35 02/12/18 21:39 - Vital Signs Vital signs: Temp Pulse Resp BP Pulse Ox 62 14 166/92 H 95 02/12/18 18:39 02/12/18 19:01 02/12/18 19:01 02/12/18 19:01 - Laboratory Result Diagrams: 02/12/18 17:19 02/12/18 17:19 Laboratory results interpreted by me: 02/12/18 02/12/18 02/12/18 17:19 17:19 19:38 Hgb 12.3 L RDW 14.4 H Plt Count 140 L Carbon Dioxide 32 H Creatinine 1.27 H Est GFR (Non-Af Amer) 56 L Glucose 212 H Total Bilirubin 1.9 H Direct Bilirubin 0.9 H Urine Protein >=500 H Urine Glucose (UA) 50 H Urine Ketones TRACE H Urine Urobilinogen 4.0 H Urine Ascorbic Acid 20 H Discharge - Discharge Clinical Impression: Chest wall pain, Orthostatic hypotension Hypertension Qualifiers: Hypertension type: unspecified Qualified Code(s): I10 - Essential (primary) hypertension Condition: Good Disposition: HOME, SELF-CARE Instructions: Chest Wall Pain ([facility]), Orthostatic Hypotension ([facility]) [facility]errals: [facility] [[facility]] - Follow up as needed
[2018-02-12 17:41] LABS: ABSOLUTE EOSINOPHILS # (AUTO) 0.2 10^3/uL (0.0-0.6); ABSOLUTE MONOCYTES (AUTO) 1.2 10^3/uL (0.1-1.4); ABSOLUTE NEUT (AUTO) 5.1 10^3/uL (1.7-8.2); BASOPHILS % (AUTO) 0.4 % (0-2); EOSINOPHILS % (AUTO) 2.5 % (0-6); HEMATOCRIT 38.1 % (37.9-51.0); HEMOGLOBIN 12.3 g/dL (13.5-17.0); LYMPHOCYTES % (AUTO) 31.1 % (13-45); MEAN CORPUSCULAR HEMOGLOBIN 27.4 pg (27.0-33.4); MEAN CORPUSCULAR HGB CONC 32.3 g/dL (32.0-36.0); MEAN CORPUSCULAR VOLUME 85 fl (80-97); MONOCYTES % (AUTO) 12.5 % (3-13); PLATELET COUNT 140 10^3/uL (150-450); RED BLOOD COUNT 4.48 10^6/uL (4.35-5.55); RED CELL DISTRIBUTION WIDTH 14.4 % (11.5-14.0); SEGMENTED NEUTROPHILS % (AUTO) 53.5 % (42-78); TOTAL CELLS COUNTED % (AUTO) 100 %; WHITE BLOOD COUNT 9.5 10^3/uL (4.0-10.5)
[2018-02-12 17:54] LABS: ALANINE AMINOTRANSFERASE 21 U/L (21-72); ALBUMIN 3.9 g/dL (3.5-5.0); ALKALINE PHOSPHATASE 117 U/L (38-126); ANION GAP 6 (5-19); ASPARTATE AMINO TRANSFERASE 40 U/L (17-59); BILIRUBIN,DIRECT 0.9 mg/dL (0.0-0.4); BILIRUBIN,TOTAL 1.9 mg/dL (0.2-1.3); BLOOD UREA NITROGEN 14 mg/dL (7-20); CALCIUM 9.3 mg/dL (8.4-10.2); CARBON DIOXIDE 32 mmol/L (22-30); CHLORIDE 101 mmol/L (98-107); GLUCOSE 212 mg/dL (75-110); SODIUM 138.7 mmol/L (137-145); TOTAL PROTEIN 8.1 g/dL (6.3-8.2)
--- NOTE | 2018-02-12 18:06 | RADIOLOGY REPORT (SQ) ---
EXAM DESCRIPTION: CHEST SINGLE VIEW COMPLETED DATE/TIME: 02/12/2018 5:54 pm REASON FOR STUDY: chest pain COMPARISON: 04/10/2017 EXAM PARAMETERS: NUMBER OF VIEWS: One view. TECHNIQUE: Single frontal radiographic view of the chest acquired. RADIATION DOSE: NA LIMITATIONS: None. FINDINGS: LUNGS AND PLEURA: No opacities, masses or pneumothorax. No pleural effusion. MEDIASTINUM AND HILAR STRUCTURES: No masses. Contour normal. HEART AND VASCULAR STRUCTURES: Heart normal in size. Normal vasculature. BONES: No acute findings. HARDWARE: None in the chest. OTHER: No other significant finding. IMPRESSION: NO ACUTE RADIOGRAPHIC FINDING IN THE CHEST. TECHNICAL DOCUMENTATION: JOB ID: [id number] [employer]- All Rights Reserved Reading location - IP/workstation name: [email or web address]
[2018-02-12] MEDS ORDERED: FENTANYL CITRATE INJ/PF 100 MCG/2 ML AMPUL IV ONE (19:21)
[2018-02-12 19:56] LABS: APPEARANCE,URINE SLIGHTLY-CLOUDY; BILIRUBIN,URINE NEGATIVE (NEGATIVE); COLOR,URINE AMBER; GLUCOSE, URINE 50 mg/dL (NEGATIVE); KETONES,URINE TRACE mg/dL (NEGATIVE); LEUKOCYTE ESTERASE,URINE NEGATIVE (NEGATIVE); NITRITE,URINE NEGATIVE (NEGATIVE); PROTEIN,URINE >=500 mg/dL (NEGATIVE); URINE SPECIFIC GRAVITY 1.022
[2018-02-12 23:06] VITALS: BP 145/92
--- NOTE | 2018-02-13 07:54 | EKG REPORT ---
SEVERITY:- BORDERLINE ECG - SINUS RHYTHM LEFT AXIS DEVIATION BORDERLINE T WAVE ABNORMALITIES : Confirmed by: Quinn Anderson MD 13-Feb-2018 07:53:40
== END 2018-02-12 23:03 | disposition home or self-care (01) ==
LOC: ER 16:46
DX: I95.1 Orthostatic hypotension (principal); R07.89 Other chest pain; R53.1 Weakness; I10 Essential (primary) hypertension
CPT/HCPCS: 93005; 99285; 96374; 36415; 85025; 80053; 81001; 84484; 71045; 93010; J3010

== ENCOUNTER 2018-09-08 08:17 | Emergency (ER) | payer OTHER, MEDICARE ==
[2018-09-08] MEDS ORDERED: ASPIRIN 81 MG TABLET, CHEWABLE PO ONE (08:40)
--- NOTE | 2018-09-08 08:43 | ER Document Report ---
ED General - General Chief Complaint: Chest Pain Stated Complaint: CHEST PAIN Time Seen by Provider: 09/08/18 08:40 Primary Care Provider: MIRYAM CAMILO MD [ACTIVE STAFF] - Follow up in 1 week Mode of Arrival: Ambulatory Information source: Patient Notes: Patient presents to the emergency department with complaints of right upper quadrant abdominal pain that radiates into his chest for the past 5 days. Reports decreased appetite because his stomach has been hurting. He reports increased pain, sharp, with movement although the pain is constant. Reports some nausea denies fever vomiting. Reports he had diarrhea yesterday after he took some mag citrate. He reports he is on pain management taking oxycodone for the past month due to a knee replacement and it has constipated him. Patient has not taken his medications today. Patient has history of DM2, [place] cardiac disease high cholesterol hypertension sleep apnea, CHF, PVD, PE. Patient reports he has a stent, hernia repair as well as knee replacement. Patient reports he has never had this pain before. Patient has vitiligo. He reports 2 years ago his skin looked normal. He reports he started experiencing vitiligo after he had surgery on his right knee. He reports allergic reaction to anesthesia or some type of immune reaction. TRAVEL OUTSIDE OF THE [place] IN LAST 30 DAYS: No - HPI Onset: Other - 5 DAYS Onset/Duration: Constant Quality of pain: Sharp Severity: Severe Pain Level: 5 Associated symptoms: Nausea Exacerbated by: Movement Relieved by: Denies Similar symptoms previously: No Recently seen / treated by doctor: No - Related Data Allergies/Adverse Reactions: morphine Allergy (Verified 09/08/18 08:18) Penicillins Allergy (Verified 09/08/18 08:18) Hives, SOB Past Medical History - General Information source: Patient - Social History Smoking Status: Former Smoker Cigarette use (# per day): No Frequency of alcohol use: None Drug Abuse: None Lives with: Family Family History: Reviewed & Not Pertinent, DM, Hypertension, Other Patient has suicidal ideation: No Patient has homicidal ideation: No - Past Medical History Cardiac Medical History: Reports: Hx Coronary Artery Disease, Hx Heart Attack, Hx Hypercholesterolemia - takes Atorvastatin r/t cardiac stent, Hx Hypertension Denies: Hx Atrial Fibrillation, Hx Congestive Heart Failure, Hx Peripheral Vascular Disease, Hx Pulmonary Embolism, Hx Heart Murmur Pulmonary Medical History: Reports: Hx Sleep Apnea - CPAP Denies: Hx Asthma, Hx Bronchitis, Hx COPD, Hx Pneumonia, Hx Respiratory Failure, Hx Tuberculosis Endocrine Medical History: Reports: Hx Diabetes Mellitus Type 2. Denies: Hx Graves' Disease, Hx Hyperthyroidism, Hx Hypothyroidism Renal/ Medical History: Reports: Hx Kidney Stones. Denies: Hx Benign Prostatic Hyperplasia, Hx End Stage Renal Disease, Hx Peritoneal Dialysis Malignancy Medical History: Denies Hx Lung Cancer GI Medical History: Denies: Hx Crohn's Disease, Hx Gastroesophageal Reflux Disease, Hx Hiatal Hernia, Hx Irritable Bowel, Hx Liver Failure, Hx Pancreatitis, Hx Ulcer Musculoskeletal Medical History: Reports Hx Arthritis, Denies Hx Fibromyalgia, Denies Hx Muscular Dystrophy, Denies Hx Systemic Lupus Erythematosus Psychiatric Medical History: Reports: Hx Depression - Anxiety, Hx Post Traumatic Stress Disorder Denies: Hx Bipolar Disorder, Hx Schizophrenia Traumatic Medical History: Denies: Hx Fractures Past Surgical History: Reports: Hx Abdominal Surgery - hernia repair, Hx Herniorrhaphy - Bilateral Inguinal/Femoral, Hx Orthopedic Surgery - right knee. Denies: Hx Appendectomy, Hx Bowel Surgery, Hx Cholecystectomy, Hx Colostomy, Hx Coronary Artery Bypass Graft, Hx Gastric Bypass Surgery, Hx Pacemaker, Hx Tonsillectomy - Immunizations Hx Diphtheria, Pertussis, Tetanus Vaccination: Yes Review of Systems - Review of Systems Notes: Review HPI for review of systems., All other systems negative Physical Exam - Vital signs Vitals: Pulse Ox 99 09/08/18 08:38 - Notes Notes: PHYSICAL EXAMINATION: GENERAL: Nontoxic looking A&O, speech clear, talkative HEAD: Atraumatic, normocephalic. EYES: Pupils equal round extraocular movements intact, sclera anicteric, conjunctiva are normal. ENT: nares patent, oropharynx clear without exudates. Moist mucous membranes. NECK: Normal range of motion, supple without lymphadenopathy LUNGS: CTAB and equal. No wheezes rales or rhonchi. HEART: Regular rate and rhythm without murmurs ABDOMEN: Soft, RUQ tenderness. No guarding, no rebound BACK: Denies pain EXTREMITIES: Normal range of motion, no pitting edema. No cyanosis. NEUROLOGICAL: Cranial nerves grossly intact. Normal sensory/motor exams. PSYCH: Normal mood, normal affect. SKIN: Warm, Dry, normal turgor, no rashes or lesions noted, vitiligo Course - Re-evaluation Re-evalutation: 09/08/18 11:35 Patient complaining of pain Percocet ordered. Gallbladder ultrasound report obtained cystic lesion pancreatic head questionable pseudocyst or cystic late neoplasm. Discussed this with patient, he denies history of any issues regarding his pancreas. CT reports reviewed with no mention. CT IV contrast ordered. 09/08/18 13:32 CT with IV contrast completed cystic pancreatic head lesion with regional adenopathy cannot exclude cystic neoplasm. Consider endoscopic ultrasound with tissue sampling. Discussed this with Dr. Garry Camilo. All labs reviewed. Patient will need an outpatient EGD ultrasound. Discussed this with patient instructed him on possible cancer. He verbalized understanding. Patient reports he is pain-free. Labs unremarkable amylase is 118. EKG SR, First troponin negative I feel this chest pain was abdominal pain radiating into his chest. Patient agree's but will wait for 2nd troponin. 09/08/18 14:31 2Nd troponin negative. Patient reports he feels fine. We discussed his CT results at length. He was given copies of the CT and ultrasound report. [facility] was [facility] for that endoscopic ultrasound. He verbalized understanding to all instructions. The patient presents with abdominal pain without signs of peritonitis or other life threatening or serious etiology. The patient appears stable for discharge and has been instructed to return immediately if the symptoms worsen in any way or in 8-12 hours if not improved for reevaluation. The patient has been instructed to return if the symptoms worsen or change in any way. Dictation of this chart was performed using voice recognition software; therefore, there may be some unintended grammatical errors. - Vital Signs Vital signs: Temp Pulse Resp BP Pulse Ox 98.7 F 16 140/95 H 98 09/08/18 14:45 09/08/18 10:01 09/08/18 12:01 09/08/18 13:27 - Laboratory Result Diagrams: 09/08/18 08:50 09/08/18 08:50 Laboratory results interpreted by me: 09/08/18 09/08/18 09/08/18 08:50 08:50 08:50 Hgb 12.9 L RDW 14.1 H Creatinine 1.41 H Est GFR (Non-Af Amer) 50 L Glucose 198 H AST 77 H Amylase 118 H Urine Protein 09/08/18 10:49 Hgb RDW Creatinine Est GFR (Non-Af Amer) Glucose AST Amylase Urine Protein >=500 H - Diagnostic Test Radiology reviewed: Image reviewed, Reports reviewed - EXAM DESCRIPTION: CT ABD/PELVIS WITH IV ONLY COMPLETED DATE/TIME: 09/08/2018 12:48 pm REASON FOR STUDY: abd pain, eval shelley. lesion COMPARISON: 06/28/2017 TECHNIQUE: CT scan of the abdomen and pelvis performed using helical scanning technique with dynamic intravenous contrast injection. No oral contrast. Images reviewed with lung, soft tissue, and bone windows. Reconstructed coronal and sagittal MPR images reviewed. Delayed images for evaluation of the urinary system also acquired. All images stored on PACS. All CT scanners at this facility use dose modulation, iterative reconstruction, and/or weight based dosing when appropriate to reduce radiation dose to as low as reasonably achievable (ALARA). [facility]: Dose Right [facility]: CareDose [facility]: Dose Right [facility]: Teradose 4D [facility]: [employer] CONTRAST TYPE AND DOSE: contrast/concentration: Isovue 350.00 mg/ml; Total Contrast Delivered: 100.0 ml; Total Saline Delivered: 72.0 ml RENAL FUNCTION: BUN 18 creatinine 1.4 RADIATION DOSE: CT Rad equipment meets quality standard of care and radiation dose reduction techniques were employed. CTDIvol: NaN - NaN mGy. DLP: 0 mGy-cm.. LIMITATIONS: None. FINDINGS: LOWER CHEST: No significant findings. No nodules or infiltrates. LIVER: Mild cyst in the dome. SPLEEN: Normal size. No focal lesions. PANCREAS: 2.5 cm well- circumscribed cystic lesion in the head measuring 3.6 cm maximum diameter and 10 HU. Main differentials are pseudocyst or cystic neoplasm. Mild dilatation of the pancreatic duct. GALLBLADDER: No identified stones by CT criteria. No inflammatory changes to suggest cholecystitis. ADRENAL GLANDS: No significant masses or asymmetry. RIGHT KIDNEY AND URETER: No solid masses. No significant calcifications. No hydronephrosis or hydroureter. LEFT KIDNEY AND URETER: No solid masses. No significant calcifications. No hydronephrosis or hydroureter. AORTA AND VESSELS: No aneurysm RETROPERITONEUM: Mildly enlarged nodes in the celiac axis, largest 10 x 16 mm image 22. BOWEL AND PERITONEAL CAVITY: No masses or inflammatory changes. No free fluid or peritoneal masses. APPENDIX: Not visualized. PELVIS: No mass. No free fluid. Normal bladder. ABDOMINAL WALL: No masses. No hernias. BONES: No significant or acute findings. OTHER: No other significant finding. IMPRESSION: Cystic pancreatic head lesion with regional adenopathy. Cannot exclude cystic neoplasm. Consider endoscopic ultrasound with tissue sampling. TECHNICAL DOCUMENTATION: JOB ID: [id number] Quality ID # [id number]: Final reports with documentation of one or more dose reduction techniques (e.g., Automated exposure control, adjustment of the mA and/or kV according to patient size, use of iterative reconstruction technique) 2010 [employer] All Rights Reserved Reading location - IP/workstation name: [email or web address] Dictated by: RAMYA WOO MD [id number] CC: GIANCARLO GAYTAN NP EXAM DESCRIPTION: CHEST 2 VIEWS COMPLETED DATE/TIME: 09/08/2018 9:03 am REASON FOR STUDY: cp COMPARISON: None. EXAM PARAMETERS: NUMBER OF VIEWS: two views TECHNIQUE: Digital Frontal and Lateral radiographic views of the chest acquired. RADIATION DOSE: NA LIMITATIONS: none FINDINGS: LUNGS AND PLEURA: No opacities, masses or pneumothorax. No pleural effusion. MEDIASTINUM AND HILAR STRUCTURES: No masses or contour abnormalities. HEART AND VASCULAR STRUCTURES: Heart normal size. No evidence for failure. BONES: No acute findings. HARDWARE: None in the chest. OTHER: No other significant finding. IMPRESSION: NO ACUTE RADIOGRAPHIC FINDING IN THE CHEST. TECHNICAL DOCUMENTATION: JOB ID: [id number] [employer] All Rights Reserved Reading location - IP/workstation name: [email or web address] Dictated by: RAMYA WOO MD [id number] EXAM DESCRIPTION: U/S ABDOMEN LIMITED W/O DOP COMPLETED DATE/TIME: 09/08/2018 10:33 am REASON FOR STUDY: ruq abd pain COMPARISON: None. TECHNIQUE: Dynamic and static graysc hesham images acquired of the abdomen and recorded on PACS. Additional selected color Doppler and spectral images recorded. LIMITATIONS: Overlying bowel gas. FINDINGS: PANCREAS: 3 cm cystic lesion in the head. Remainder the pancreas poorly visualized. LIVER: No masses. Echotexture normal. LIVER VASCULATURE: Normal directional flow of the main portal vein and hepatic veins. GALLBLADDER: No stones. Normal wall thickness. No pericholecystic fluid. ULTRASOUND-DETECTED VANEGAS'S SIGN: Negative. INTRAHEPATIC DUCTS AND COMMON DUCT: CBD and intrahepatic ducts normal caliber. No filling defects. INFERIOR VENA CAVA: Normal flow. AORTA: No aneurysm. RIGHT KIDNEY: Normal size. Normal echogenici ty. No solid or suspicious masses. No hydronephrosis. No calcifications. PERITONEAL AND RIGHT PLEURAL SPACE: No ascites or effusions. OTHER: No other significant findings. IMPRESSION: Cystic lesion pancreatic head. This could be a pseudocyst or cystic neoplasm. TECHNICAL DOCUMENTATION: JOB ID: [id number] [employer]- All Rights Reserved Reading location - IP/workstation name: [email or web address] [id number] Dictated by: RAMYA WOO MD [id number] - EKG Interpretation by Wi EKG shows normal: Sinus rhythm When compared to previous EKG there are: No significant change Additional EKG results interpreted by ct: 09/08/18 08:[address] elevation no T wave inversion Discharge - Discharge Clinical Impression: Pancreatic lesion Abdominal pain Qualifiers: Abdominal location: right upper quadrant Qualified Code(s): R10.11 - Right upper quadrant pain Condition: Stable Disposition: HOME, SELF-CARE Instructions: Abdominal Pain ([facility]) Additional Instructions: *You have been evaluated for abdominal pain, pancreatic lesion *The CT of your abdomen noted a possible cystic neoplasm, cancer. 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 *Take your pain medication as prescribed *[facility] *Return to ED for worsening condition, changes, needs *Return to ED if not better in 24 hours Forms: Elevated Blood Pressure Referrals: MIRYAM CAMILO MD [ACTIVE STAFF] - Follow up in 1 week
--- NOTE | 2018-09-08 09:23 | RADIOLOGY REPORT (SQ) ---
EXAM DESCRIPTION: CHEST 2 VIEWS COMPLETED DATE/TIME: 09/08/2018 9:03 am REASON FOR STUDY: cp COMPARISON: None. EXAM PARAMETERS: NUMBER OF VIEWS: two views TECHNIQUE: Digital Frontal and Lateral radiographic views of the chest acquired. RADIATION DOSE: NA LIMITATIONS: none FINDINGS: LUNGS AND PLEURA: No opacities, masses or pneumothorax. No pleural effusion. MEDIASTINUM AND HILAR STRUCTURES: No masses or contour abnormalities. HEART AND VASCULAR STRUCTURES: Heart normal size. No evidence for failure. BONES: No acute findings. HARDWARE: None in the chest. OTHER: No other significant finding. IMPRESSION: NO ACUTE RADIOGRAPHIC FINDING IN THE CHEST. TECHNICAL DOCUMENTATION: JOB ID: [id number] [employer]- All Rights Reserved Reading location - IP/workstation name: [email or web address]
[2018-09-08 09:30] LABS: ALANINE AMINOTRANSFERASE 68 U/L (21-72); ALKALINE PHOSPHATASE 110 U/L (38-126); ANION GAP 8 (5-19); ASPARTATE AMINO TRANSFERASE 77 U/L (17-59); BILIRUBIN,DIRECT 0.4 mg/dL (0.0-0.4); BILIRUBIN,TOTAL 0.7 mg/dL (0.2-1.3); BLOOD UREA NITROGEN 18 mg/dL (7-20); CALCIUM 9.3 mg/dL (8.4-10.2); CARBON DIOXIDE 30 mmol/L (22-30); CHLORIDE 102 mmol/L (98-107); CREATINE KINASE 58 U/L (55-170); GLUCOSE 198 mg/dL (75-110); LIPASE 207.1 U/L (23-300); POTASSIUM 4.7 mmol/L (3.6-5.0); SODIUM 139.7 mmol/L (137-145); TOTAL PROTEIN 7.9 g/dL (6.3-8.2)
[2018-09-08 09:36] LABS: ABSOLUTE EOSINOPHILS # (AUTO) 0.2 10^3/uL (0.0-0.6); ABSOLUTE LYMPHOCYTES (AUTO) 2.4 10^3/uL (0.5-4.7); ABSOLUTE MONOCYTES (AUTO) 0.8 10^3/uL (0.1-1.4); BASOPHILS % (AUTO) 0.6 % (0-2); EOSINOPHILS % (AUTO) 2.4 % (0-6); HEMOGLOBIN 12.9 g/dL (13.5-17.0); LYMPHOCYTES % (AUTO) 32.3 % (13-45); MEAN CORPUSCULAR HEMOGLOBIN 27.9 pg (27.0-33.4); MEAN CORPUSCULAR HGB CONC 32.4 g/dL (32.0-36.0); MEAN CORPUSCULAR VOLUME 86 fl (80-97); MONOCYTES % (AUTO) 10.6 % (3-13); PLATELET COUNT 170 10^3/uL (150-450); RED BLOOD COUNT 4.65 10^6/uL (4.35-5.55); RED CELL DISTRIBUTION WIDTH 14.1 % (11.5-14.0); SEGMENTED NEUTROPHILS % (AUTO) 54.1 % (42-78); TOTAL CELLS COUNTED % (AUTO) 100 %; WHITE BLOOD COUNT 7.4 10^3/uL (4.0-10.5)
--- NOTE | 2018-09-08 10:52 | RADIOLOGY REPORT (SQ) ---
EXAM DESCRIPTION: U/S ABDOMEN LIMITED W/O DOP COMPLETED DATE/TIME: 09/08/2018 10:33 am REASON FOR STUDY: ruq abd pain COMPARISON: None. TECHNIQUE: Dynamic and static grayscale images acquired of the abdomen and recorded on PACS. Additio nal selected color Doppler and spectral images recorded. LIMITATIONS: Overlying bowel gas. FINDINGS: PANCREAS: 3 cm cystic lesion in the head. Remainder the pancreas poorly visualized. LIVER: No masses. Echotexture normal. LIVER VASCULATURE: Normal directional flow of the main portal vein and hepatic veins. GALLBLADDER: No stones. Normal wall thickness. No pericholecystic fluid. ULTRASOUND-DETECTED VANEGAS'S SIGN: Negative. INTRAHEPATIC DUCTS AND COMMON DUCT: CBD and intrahepatic ducts normal caliber. No filling defects. INFERIOR VENA CAVA: Normal flow. AORTA: No aneurysm. RIGHT KIDNEY: Normal size. Normal echogenicity. No solid or suspicious masses. No hydronephrosis. No calcifications. PERITONEAL AND RIGHT PLEURAL SPACE: No ascites or effusions. OTHER: No other significant findings. IMPRESSION: Cystic lesion pancreatic head. This could be a pseudocyst or cystic neoplasm. TECHNICAL DOCUMENTATION: JOB ID: [id number] [employer]- All Rights Reserved Reading location - IP/workstation name: [email or web address]
[2018-09-08] MEDS ORDERED: OXYCODONE-ACETAMINOPHEN 5-325 MG TABLET PO ONE (11:19)
[2018-09-08] MEDS ORDERED: NORMAL SALINE 1000 ML 500 ML IV ONE (11:27)
[2018-09-08 11:39] LABS: APPEARANCE,URINE CLEAR; BILIRUBIN,URINE NEGATIVE (NEGATIVE); COLOR,URINE YELLOW; GLUCOSE, URINE NEGATIVE (NEGATIVE); KETONES,URINE NEGATIVE (NEGATIVE); LEUKOCYTE ESTERASE,URINE NEGATIVE (NEGATIVE); NITRITE,URINE NEGATIVE (NEGATIVE); PROTEIN,URINE >=500 mg/dL (NEGATIVE); URINE SPECIFIC GRAVITY 1.014; UROBILINOGEN,URINE NEGATIVE mg/dL (<2.0)
[2018-09-08 12:38] VITALS: BP 140/95
--- NOTE | 2018-09-08 13:10 | RADIOLOGY REPORT (SQ) ---
EXAM DESCRIPTION: CT ABD/PELVIS WITH IV ONLY COMPLETED DATE/TIME: 09/08/2018 12:48 pm REASON FOR STUDY: abd pain, eval shelley. lesion COMPARISON: 06/28/2017 TECHNIQUE: CT scan of the abdomen and pelvis performed using helical scanning technique with dynamic intravenous contrast injection. No oral contrast. Images reviewed with lung, soft tissue, and bone windows. Reconstructed coronal and sagittal MPR images reviewed. Delayed images for evaluation of the urinary system also acquired. All images stored on PACS. All CT scanners at this facility use dose modulation, iterative reconstruction, and/or weight based d osing when appropriate to reduce radiation dose to as low as reasonably achievable (ALARA). [facility]: Dose Right [facility]: CareDose [facility]: Dose Right [facility]: Teradose 4D [facility]: [employer] CONTRAST TYPE AND DOSE: contrast/concentration: Isovue 350.00 mg/ml; Total Contrast Delivered: 100.0 ml; Total Saline Delivered: 72.0 ml RENAL FUNCTION: BUN 18 creatinine 1.4 RADIATION DOSE: CT Rad equipment meets quality standard of care and radiation dose reduction techniq ues were employed. CTDIvol: NaN - NaN mGy. DLP: 0 mGy-cm.. LIMITATIONS: None. FINDINGS: LOWER CHEST: No significant findings. No nodules or infiltrates. LIVER: Mild cyst in the dome. SPLEEN: Normal size. No focal lesions. PANCREAS: 2.5 cm well-circumscribed cystic lesion in the head measuring 3.6 cm maximum diameter and 1 0 HU. Main differentials are pseudocyst or cystic neoplasm. Mild dilatation of the pancreatic duct. GALLBLADDER: No identified stones by CT criteria. No inflammatory changes to suggest cholecystitis. ADRENAL GLANDS: No significant masses or asymmetry. RIGHT KIDNEY AND URETER: No solid masses. No significant calcifications. No hydronephrosis or hyd roureter. LEFT KIDNEY AND URETER: No solid masses. No significant calcifications. No hydronephrosis or hydr oureter. AORTA AND VESSELS: No aneurysm RETROPERITONEUM: Mildly enlarged nodes in the celiac axis, largest 10 x 16 mm image 22. BOWEL AND PERITONEAL CAVITY: No masses or inflammatory changes. No free fluid or peritoneal masses. APPENDIX: Not visualized. PELVIS: No mass. No free fluid. Normal bladder. ABDOMINAL WALL: No masses. No hernias. BONES: No significant or acute findings. OTHER: No other significant finding. IMPRESSION: Cystic pancreatic head lesion with regional adenopathy. Cannot exclude cystic neoplasm. Consider endoscopic ultrasound with tissue sampling. TECHNICAL DOCUMENTATION: JOB ID: [id number] Quality ID # [id number]: Final reports with documentation of one or more dose reduction techniques (e.g., Au tomated exposure control, adjustment of the mA and/or kV according to patient size, use of iterative reconstruction technique) 2010 [employer]- All Rights Reserved Reading location - IP/workstation name: [email or web address]
--- NOTE | 2018-09-08 19:05 | EKG REPORT ---
SEVERITY:- ABNORMAL ECG - SINUS RHYTHM LAD, LAHB : Confirmed by: Yulia Ramos MD 08-Sep-2018 19:04:36
== END 2018-09-08 15:16 | disposition home or self-care (01) ==
LOC: ER 08:17
DX: K86.89 Other specified diseases of pancreas (principal); R10.11 Right upper quadrant pain; R07.9 Chest pain, unspecified; R63.0 Anorexia; R11.0 Nausea; R19.7 Diarrhea, unspecified; E11.9 Type 2 diabetes mellitus without complications; I25.10 Atherosclerotic heart disease of native coronary artery without angina pectoris; Z87.891 Personal history of nicotine dependence; I25.2 Old myocardial infarction; I10 Essential (primary) hypertension
CPT/HCPCS: 93005; 99284; 96360; 36415; 82150; 82550; 83690; 85025; 80053; 81001; 84484; 71046; 76705; 74177; 93010; J7030

== ENCOUNTER 2018-11-10 01:03 | Emergency (ER) | payer OTHER, MEDICARE ==
[2018-11-10] MEDS ORDERED: HYDROMORPHONE HCL INJ/PF 2 MG/ML AMPULE IV ONE ×2 (01:30→05:09)
--- NOTE | 2018-11-10 01:32 | ER Document Report ---
ED GI/ - General Chief Complaint: Abdominal Pain Stated Complaint: ABDOMINAL PAIN Time Seen by Provider: 11/10/18 01:18 Primary Care Provider: LORI,JENNIFER [Primary Care Provider] - Follow up as needed Mode of Arrival: Ambulatory Information source: Patient Notes: Chief complaint: abdominal pain: History of complain:( obtained from----patient) 68 years old male presents today with abdominal pain. He had recent biopsy of the pancreas through endoscopy, diagnosed as pancreatic cancer. Having diffuse abdominal pain. Associated with slight nausea no vomiting. De nies any diarrhea denies any fever chills or other constitutional symptoms. Onset: As above gradual Duration: Last several weeks Severity: Moderate to severe Quality: Sharp Context: As described above Exacerbating factor and relieving factors: Change of position REVIEW OF SYSTEMS: CONSTITUTIONAL : Denies fever, chills, or sweats. Denies recent illness. EENT: Denies eye, ear, throat, or mouth pain or symptoms. Denies nasal or sinus congestion or discharge. Denies throat, tongue, or mouth swelling or difficulty swallowing. CARDIOVASCULAR: Denies chest pain. Denies palpitations or racing or irregular heart beat. Denies ankle edema. RESPIRATORY: Denies cough, cold, or chest congestion. Denies shortness of breath, difficulty breathing, or wheezing. GASTROINTESTINAL: Denies distention. Denies nausea, vomiting, or diarrhea. Denies blood in vomitus, stools, or per rectum. Denies black, tarry stools. Denies constipation. GENITOURINARY: Denies difficulty urinating, painful urination, burning, frequency, blood in urine, or discharge. FEMALE GENITOURINARY: Denies vaginal bleeding, heavy or abnormal periods, irregular periods. Denies vaginal discharge or odor. MUSCULOSKELETAL: Denies back or neck pain or stiffness. Denies joint pain or swelling. SKIN: Denies rash, lesions or sores. HEMATOLOGIC : Denies easy bruising or bleeding. LYMPHATIC: Denies swollen, enlarged glands. NEUROLOGICAL: Denies confusion or altered mental status. Denies passing out or loss of consciousness. Denies dizziness or lightheadedness. Denies headache. Denies weakness or paralysis or loss of use of either side. Denies problems with gait or speech. Denies sensory loss, numbness, or tingling. Denies seizures. PSYCHIATRIC: Denies anxiety or stress. Denies depression, suicidal ideation, or homicidal ideation. ALL OTHER SYSTEMS REVIEWED AND NEGATIVE. PHYSICAL EXAMINATION: GENERAL: Well-appearing, well-nourished and in seems to be in acute pain HEAD: Atraumatic, normocephalic. EYES: Pupils equal round and reactive to light, extraocular movements intact, conjunctiva are normal. LUNGS: Breath sounds clear to auscultation bilaterally and equal. No wheezes rales or rhonchi. HEART: Regular rate and rhythm without murmurs ABDOMEN: Soft, diffusely tender, nondistended abdomen. No guarding, no rebound. No masses appreciated. Female : deferred Musculoskeletal: Normal range of motion, no pitting or edema. No cyanosis. NEUROLOGICAL: Cranial nerves grossly intact. Normal speech, normal gait. Normal sensory, motor exams PSYCH: Normal mood, normal affect. SKIN: Warm, Dry, normal turgor, no rashes or lesions noted. Dictation was performed using [employer] voice recognition software TRAVEL OUTSIDE OF THE [place] IN LAST 30 DAYS: No - HPI Notes: 11/10/18 01:31 Dictated - Related Data Allergies/Adverse Reactions: hydrocodone Allergy (Verified 11/10/18 03:34) morphine Allergy (Verified 11/10/18 03:34) Penicillins Allergy (Verified 11/10/18 03:34) Hives, SOB Past Medical History - Social History Smoking Status: Unknown if Ever Smoked Frequency of alcohol use: None Drug Abuse: None Lives with: Family Family History: Reviewed & Not Pertinent, DM, Hypertension, Other - Past Medical History Cardiac Medical History: Reports: Hx Coronary Artery Disease, Hx Heart Attack, Hx Hypercholesterolemia - takes Atorvastatin r/t cardiac stent, Hx Hypertension Denies: Hx Atrial Fibrillation, Hx Congestive Heart Failure, Hx Peripheral Vascular Disease, Hx Pulmonary Embolism, Hx Heart Murmur Pulmonary Medical History: Reports: Hx Sleep Apnea - CPAP Denies: Hx Asthma, Hx Bronchitis, Hx COPD, Hx Pneumonia, Hx Respiratory Failure, Hx Tuberculosis Endocrine Medical History: Reports: Hx Diabetes Mellitus Type 2. Denies: Hx Graves' Disease, Hx Hyperthyroidism, Hx Hypothyroidism Renal/ Medical History: Reports: Hx Kidney Stones. Denies: Hx Benign Prost atic Hyperplasia, Hx End Stage Renal Disease, Hx Peritoneal Dialysis Malignancy Medical History: Denies Hx Lung Cancer GI Medical History: Denies: Hx Crohn's Disease, Hx Gastroesophageal Reflux Disease, Hx Hiatal Hernia, Hx Irritable Bowel, Hx Liver Failure, Hx Pancreatitis, Hx Ulcer Musculoskeletal Medical History: Reports Hx Arthritis, Denies Hx Fibromyalgia, Denies Hx Muscular Dystrophy, Denies Hx Systemic Lupus Erythematosus Psychiatric Medical History: Reports: Hx Depression - Anxiety, Hx Post Traumatic Stress Disorder Denies: Hx Bipolar Disorder, Hx Schizophrenia Traumatic Medical History: Denies: Hx Fractures Past Surgical History: Reports: Hx Abdominal Surgery - hernia repair, Hx Cardiac Surgery - Stent, Hx Herniorrhaphy - Bilateral Inguinal/Femoral, Hx Orthopedic Surgery - right knee. Denies: Hx Appendectomy, Hx Bowel Surgery, Hx Cholecystectomy, Hx Colostomy, Hx Coronary Artery Bypass Graft, Hx Gastric Bypass Surgery, Hx Pacemaker, Hx Tonsillectomy - Immunizations Hx Diphtheria, Pertussis, Tetanus Vaccination: Yes Review of Systems - Review of Systems Notes: Dictated Physical Exam - Vital signs Vitals: Temp Pulse Resp BP Pulse Ox 97.9 F 70 20 164/79 H 98 11/10/18 01:13 11/10/18 01:13 11/10/18 01:13 11/10/18 01:13 11/10/18 01:13 - Notes Notes: Dictated Course - Re-evaluation Re-evalutation: 11/10/18 05:04 Chronic pancreatitis secondary to pancreatic cancer, hyperglycemia and abdominal pain - Vital Signs Vital signs: Temp Pulse Resp BP Pulse Ox 98.0 F 61 13 174/92 H 89 L 11/10/18 03:01 11/10/18 03:01 11/10/18 03:01 11/10/18 03:01 11/10/18 03:01 - Laboratory Result Diagrams: 11/10/18 01:58 11/10/18 01:58 Laboratory results interpreted by me: 11/10/18 11/10/18 01:58 01:58 RBC 4.25 L Hgb 12.0 L Hct 36.6 L RDW 14.1 H Plt Count 118 L Sodium 135.6 L Creatinine 1.27 H Est GFR (MDRD) Non-Af 56 L Glucose 448 H* Lipase 388.8 H - Diagnostic Test Radiology reviewed: Reports reviewed - KUB is unremarkable Discharge - Discharge Clinical Impression: Abdominal pain Qualifiers: Abdominal location: generalized Qualified Code(s): R10.84 - Generalized abdominal pain Pancreatic cancer Qualifiers: Pancreatic malignancy location: other parts of pancreas Qualified Code(s): C25.7 - Malignant neoplasm of other parts of pancreas Chronic pancreatitis Qualifiers: Pancreatitis type: other Qualified Code(s): K86.1 - Other chronic pancreatitis Condition: Fair Disposition: HOME, SELF-CARE Instructions: Abdominal Pain ([facility]) Prescriptions: Oxycodone HCl/Acetaminophen [Percocet 10-325 Mg Tablet] 1 each PO TID #10 tablet [facility]errals: [facility] [Primary [facility]] - Follow up as needed
[2018-11-10 02:10] LABS: ABSOLUTE BASOPHILS # (AUTO) 0.1 10^3/uL (0.0-0.2); ABSOLUTE EOSINOPHILS # (AUTO) 0.3 10^3/uL (0.0-0.6); ABSOLUTE LYMPHOCYTES (AUTO) 3.1 10^3/uL (0.5-4.7); ABSOLUTE MONOCYTES (AUTO) 0.9 10^3/uL (0.1-1.4); ABSOLUTE NEUT (AUTO) 4.2 10^3/uL (1.7-8.2); BASOPHILS % (AUTO) 0.7 % (0-2); HEMATOCRIT 36.6 % (37.9-51.0); LYMPHOCYTES % (AUTO) 36.1 % (13-45); MEAN CORPUSCULAR HEMOGLOBIN 28.2 pg (27.0-33.4); MEAN CORPUSCULAR HGB CONC 32.7 g/dL (32.0-36.0); MEAN CORPUSCULAR VOLUME 86 fl (80-97); MONOCYTES % (AUTO) 10.1 % (3-13); PLATELET COUNT 118 10^3/uL (150-450); RED BLOOD COUNT 4.25 10^6/uL (4.35-5.55); RED CELL DISTRIBUTION WIDTH 14.1 % (11.5-14.0); SEGMENTED NEUTROPHILS % (AUTO) 49.1 % (42-78); TOTAL CELLS COUNTED % (AUTO) 100 %; WHITE BLOOD COUNT 8.5 10^3/uL (4.0-10.5)
[2018-11-10 02:33] LABS: ALBUMIN 3.8 g/dL (3.5-5.0); ALKALINE PHOSPHATASE 114 U/L (38-126); ANION GAP 9 (5-19); ASPARTATE AMINO TRANSFERASE 51 U/L (17-59); BILIRUBIN,DIRECT 0.2 mg/dL (0.0-0.4); BILIRUBIN,TOTAL 0.6 mg/dL (0.2-1.3); BLOOD UREA NITROGEN 14 mg/dL (7-20); CARBON DIOXIDE 29 mmol/L (22-30); CHLORIDE 98 mmol/L (98-107); POTASSIUM 4.7 mmol/L (3.6-5.0); TOTAL PROTEIN 7.3 g/dL (6.3-8.2)
[2018-11-10 02:39] LABS: GLUCOSE 448 mg/dL (75-110)
--- NOTE | 2018-11-10 03:02 | RADIOLOGY REPORT (SQ) ---
Abdomen single view on 11/10/2018 at 2:25 AM CLINICAL INDICATION: Generalized abdominal pain COMPARISON: CT from 09/08/2018 FINDINGS: Vascular calcifications are noted. The bowel gas pattern is nonspecific. Degenerative changes are noted in the spine. No increased stool to suggest constipation is noted. IMPRESSION: Nonspecific abdomen.
[2018-11-10] MEDS ORDERED: INSULIN REG, HUMAN 100 UNIT/ML 3 ML VIAL (PYX) SUBCUT ONE (04:32)
[2018-11-10 06:08] VITALS: BP 153/95
== END 2018-11-10 06:11 | disposition home or self-care (01) ==
LOC: ER 01:03
DX: C25.7 Malignant neoplasm of other parts of pancreas (principal); R10.84 Generalized abdominal pain; R11.0 Nausea; I25.10 Atherosclerotic heart disease of native coronary artery without angina pectoris; I10 Essential (primary) hypertension
CPT/HCPCS: 96376; 99284; 96374; 36415; 82962; 83690; 85025; 80053; 74018; J1170; J1815

== ENCOUNTER → 2018-11-24 | Outpatient (CLI) | payer OTHER | LOC: RAD 15:15 | PROVIDERS: ATTEND Internal Medicine Hematology & Oncology | DX: C25.9 Malignant neoplasm of pancreas, unspecified (principal) | CPT/HCPCS: 78815; A9552 ==

== ENCOUNTER → 2018-12-11 | Outpatient (CLI) | payer OTHER, MEDICARE ==
[2018-12-11 13:40] LABS: ABSOLUTE EOSINOPHILS # (AUTO) 0.2 10^3/uL (0.0-0.6); ABSOLUTE MONOCYTES (AUTO) 0.7 10^3/uL (0.1-1.4); ABSOLUTE NEUT (AUTO) 3.9 10^3/uL (1.7-8.2); BASOPHILS % (AUTO) 0.2 % (0-2); EOSINOPHILS % (AUTO) 3.2 % (0-6); HEMATOCRIT 35.1 % (37.9-51.0); HEMOGLOBIN 11.5 g/dL (13.5-17.0); LYMPHOCYTES % (AUTO) 29.6 % (13-45); MEAN CORPUSCULAR HEMOGLOBIN 27.8 pg (27.0-33.4); MEAN CORPUSCULAR HGB CONC 32.8 g/dL (32.0-36.0); MEAN CORPUSCULAR VOLUME 85 fl (80-97); MONOCYTES % (AUTO) 10.6 % (3-13); PLATELET COUNT 147 10^3/uL (150-450); RED BLOOD COUNT 4.13 10^6/uL (4.35-5.55); SEGMENTED NEUTROPHILS % (AUTO) 56.4 % (42-78); TOTAL CELLS COUNTED % (AUTO) 100 %; WHITE BLOOD COUNT 6.9 10^3/uL (4.0-10.5)
[2018-12-11 14:09] LABS: ALBUMIN 3.9 g/dL (3.5-5.0); ALKALINE PHOSPHATASE 115 U/L (38-126); ANION GAP 8 (5-19); ASPARTATE AMINO TRANSFERASE 56 U/L (17-59); BILIRUBIN,DIRECT 0.4 mg/dL (0.0-0.4); BILIRUBIN,TOTAL 0.7 mg/dL (0.2-1.3); BLOOD UREA NITROGEN 16 mg/dL (7-20); CALCIUM 9.2 mg/dL (8.4-10.2); CARBON DIOXIDE 32 mmol/L (22-30); CHLORIDE 98 mmol/L (98-107); GLUCOSE 229 mg/dL (75-110); POTASSIUM 4.6 mmol/L (3.6-5.0); TOTAL PROTEIN 7.8 g/dL (6.3-8.2)
== END ==
LOC: OD 12:01
PROVIDERS: ATTEND Surgery
DX: C25.9 Malignant neoplasm of pancreas, unspecified (principal)
CPT/HCPCS: 36415; 80053; 85025; 86850; 86900; 86901

== ENCOUNTER 2018-12-18 07:49 | Inpatient (IN) | payer OTHER, MEDICARE ==
[~2018-12-18 07:49] MED LIST changes: -BUPIVACAINE INJ/PF LIPOSOME/PF 266 MG/20 ML SDV IJ PRN; +CEFAZOLIN SODIUM 2 GM in DEXTROSE 5%-WATER 100 ML IV PRN; -CLINDAMYCIN 600 MG/D5W RTU 600 MG/50 ML RTUPB IV PRN; -IBUPROFEN 800 MG/NS 250 ML IV PRN; -LANSOPRAZOLE 15 MG TAB.RAP.DR PO PRN; +METRONIDAZOLE 500 MG/NS RTU 500 MG/100 ML RTUPB IV PRN; -OXYCODONE HCL SR 10 MG TABLET PO PRN; -SCOPOLAMINE HYDROBROMIDE 1.5 MG PATCH.TD72 TOP PRN; -VANCOMYCIN HCL 1,000 MG in DEXTROSE 5%-WATER 250 ML IV PRN
[2018-12-18] MEDS ORDERED: BUPIVACAINE HCL 0.25 % INJ/PF (2.5 MG/1 ML) 30 ML VIAL ONE (08:30)
[2018-12-18] MEDS ORDERED: METOPROLOL TARTRATE 25 MG TABLET ONE (08:36)
[2018-12-18] MEDS ORDERED: FENTANYL CITRATE INJ/PF 100 MCG/2 ML AMPUL IV PRN ×4 (08:42→12:02)
[2018-12-18] MEDS ORDERED: MIDAZOLAM 2 MG/2 ML INJ ONE ×2 (08:45→17:59)
[2018-12-18] MEDS ORDERED: FENTANYL CITRATE INJ/PF 100 MCG/2 ML AMPUL ONE ×5 (08:45→19:24)
[2018-12-18] MEDS ORDERED: METRONIDAZOLE 500 MG/NS RTU 500 MG/100 ML RTUPB IV ONE (09:17)
[2018-12-18] MEDS ORDERED: CEFAZOLIN INJ 1 GM VIAL ONE ×2 (09:25→14:22)
[2018-12-18] MEDS ORDERED: HYDROMORPHONE HCL INJ/PF 2 MG/ML AMPULE ONE (09:34)
[2018-12-18] MEDS ORDERED: PROPOFOL INJ 200 MG/20 ML VIAL IV ONE (09:34)
[2018-12-18] MEDS ORDERED: EPINEPHRINE INJ 1 MG/10 ML DISP.SYRIN ONE ×2 (09:53→17:14)
[2018-12-18 09:57] LABS: HEMATOCRIT 36.9 % (37.9-51.0); HEMOGLOBIN 11.9 g/dL (13.5-17.0); MEAN CORPUSCULAR HEMOGLOBIN 27.8 pg (27.0-33.4); MEAN CORPUSCULAR HGB CONC 32.4 g/dL (32.0-36.0); MEAN CORPUSCULAR VOLUME 86 fl (80-97); PLATELET COUNT 165 10^3/uL (150-450); RED BLOOD COUNT 4.29 10^6/uL (4.35-5.55); RED CELL DISTRIBUTION WIDTH 14.2 % (11.5-14.0)
[2018-12-18] MEDS ORDERED: ONDANSETRON HCL INJ/PF 4 MG/2 ML SDV ONE (10:27)
[2018-12-18] MEDS ORDERED: PHENYLEPHRINE HCL INJ/PF 10 MG/1 ML SDV ONE ×2 (10:27→17:29)
[2018-12-18] MEDS ORDERED: DEXAMETHASONE SOD PHOSPHATE INJ 4 MG/1 ML VIAL ONE (10:27)
[2018-12-18] MEDS ORDERED: ROCURONIUM BROMIDE INJ 50 MG/5 ML VIAL IV ONE (10:27)
[2018-12-18] MEDS ORDERED: SUCCINYLCHOLINE CHLORIDE INJ 200 MG/10 ML VIAL ONE (10:27)
[2018-12-18] MEDS ORDERED: LIDOCAINE 2% INJ-PF (20 MG/ML) 2 ML AMPUL ONE (10:27)
[2018-12-18] MEDS ORDERED: VECURONIUM BROMIDE INJ 10 MG VIAL IV ONE (10:27)
[2018-12-18] MEDS ORDERED: FENTANYL/BUPIVACAINE/NS/PF 300 MCG/150 ML RTUINJ EPI ONE (10:28)
[2018-12-18] MEDS ORDERED: MEPERIDINE HCL/PF INJ 25 MG/1 ML DISP.SYRIN IV PRN (12:02)
[2018-12-18] MEDS ORDERED: PROMETHAZINE HCL INJ 25 MG/1 ML VIAL IV PRN (12:02)
[2018-12-18] MEDS ORDERED: DIPHENHYDRAMINE HCL 50 MG/ML VIAL IV PRN (12:02)
[2018-12-18] MEDS ORDERED: TRANEXAMIC ACID INJ/PF 1,000 MG/10 ML SDV ONE (12:44)
[2018-12-18 14:01] LABS: ABSOLUTE EOSINOPHILS # (AUTO) 0.1 10^3/uL (0.0-0.6); ABSOLUTE MONOCYTES (AUTO) 0.3 10^3/uL (0.1-1.4); ABSOLUTE NEUT (AUTO) 6.9 10^3/uL (1.7-8.2); LYMPHOCYTES % (AUTO) 11.5 % (13-45); TOTAL CELLS COUNTED % (AUTO) 100 %
[2018-12-18 14:07] LABS: ABSOLUTE LYMPHOCYTES (AUTO) 0.9 10^3/uL (0.5-4.7); BASOPHILS % (AUTO) 0.2 % (0-2); EOSINOPHILS % (AUTO) 0.9 % (0-6); HEMATOCRIT 23.8 % (37.9-51.0); MEAN CORPUSCULAR HEMOGLOBIN 28.3 pg (27.0-33.4); MEAN CORPUSCULAR HGB CONC 33.4 g/dL (32.0-36.0); MEAN CORPUSCULAR VOLUME 85 fl (80-97); MONOCYTES % (AUTO) 3.8 % (3-13); PLATELET COUNT 118 10^3/uL (150-450); RED BLOOD COUNT 2.81 10^6/uL (4.35-5.55); RED CELL DISTRIBUTION WIDTH 13.9 % (11.5-14.0); SEGMENTED NEUTROPHILS % (AUTO) 83.6 % (42-78); WHITE BLOOD COUNT 8.2 10^3/uL (4.0-10.5)
[2018-12-18 14:10] LABS: HEMOGLOBIN 7.9 g/dL (13.5-17.0)
[2018-12-18 14:17] LABS: ARTERIAL BLOOD H2CO3 0.93 mmol/L (1.05-1.35); ARTERIAL BLOOD HCO3 21.5 mmol/L (20-24); ARTERIAL BLOOD O2 SATURATION 99.6 % (94-98); ARTERIAL BLOOD PH 7.46 (7.35-7.45); ARTERIAL BLOOD PO2 235.5 mmHg (80-100); ARTERIAL BLOOD TOTAL CO2 22.5 mmol/L (23-27)
[2018-12-18 14:20] LABS: ARTERIAL BLOOD FIO2 50
[2018-12-18] MEDS ORDERED: PROPOFOL 1,000 MG/100 ML INFUS..BTL IV ONE (16:08)
[2018-12-18] MEDS: PROPOFOL 1,000 MG/100 ML INFUS..BTL IV PRN ×2 (16:10→21:49)
[2018-12-18] MEDS ORDERED: BUPIVACAINE EPI PRN (16:17)
[2018-12-18] MEDS ORDERED: NS EPI PRN (16:17)
[2018-12-18] MEDS ORDERED: FENTANYL EPI PRN (16:17)
[2018-12-18] MEDS ORDERED: MINERAL OIL/PETROLATUM,WHITE OPH OINT 3.5 GM OU PRN (16:18)
[2018-12-18] MEDS ORDERED: GLUCAGON,HUMAN RECOMB 1 MG INJ SUBCUT PRN (16:20)
[2018-12-18] MEDS ORDERED: DEXTROSE 50%-WATER 25 GM/50 ML DISP.SYRIN IV PRN ×3 (16:20→16:24)
[2018-12-18] MEDS ORDERED: POTASSI CL 20 MEQ/D5-1/2NS 1L 1,000 ML IV PRN (16:20)
[2018-12-18] MEDS ORDERED: GLUCAGON,HUMAN RECOMB 1 MG INJ IM PRN (16:24)
[2018-12-18] MEDS ORDERED: DEXTROSE 40% GEL 15 GM TUBE PO PRN ×2 (16:24)
--- NOTE | 2018-12-18 16:39 | Operative Report ---
Nonrecallable Operative Report DATE OF SURGERY: 12/18/18 PREOPERATIVE DIAGNOSIS: pancreatic cancer POSTOPERATIVE DIAGNOSIS: pancreatic cancer OPERATION: distal pancreatectomy/splenectomy SURGEON: MICAH ARIAS 1ST GOGGLES ASSEMBLER: AISSATOU COTTRELL ANESTHESIA: GA TISSUE REMOVED OR ALTERED: pancrease/spleen COMPLICATIONS: see note ESTIMATED BLOOD LOSS: 1liter INTRAOPERATIVE FINDINGS: tumor in neck of pancrease PROCEDURE: see dictation
[2018-12-18] MEDS ORDERED: CEFAZOLIN 1 GM/D5W RTU 50 ML IV SCH (16:45)
--- NOTE | 2018-12-18 16:58 | RADIOLOGY REPORT (SQ) ---
EXAM DESCRIPTION: CHEST SINGLE VIEW COMPLETED DATE/TIME: 12/18/2018 4:42 pm REASON FOR STUDY: tube placement COMPARISON: 09/08/2018 NUMBER OF VIEWS: One view. TECHNIQUE: Single frontal radiographic view of the chest acquired. LIMITATIONS: None. FINDINGS: LUNGS AND PLEURA: Lung eduardo are grossly clear. Endotracheal tube, NG tube and central l ine are in place. Left-sided central line overlies the left innominate vein. MEDIASTINUM AND HILAR STRUCTURES: No masses. Contour normal. HEART AND VASCULAR STRUCTURES: Heart normal in size. Normal vasculature. BONES: No acute findings. HARDWARE: None in the chest. OTHER: No other significant finding. IMPRESSION: Support lines and tubes have been placed as described. TECHNICAL DOCUMENTATION: JOB ID: [id number] [employer]- All Rights Reserved Reading location - IP/workstation name: [email or web address]
[2018-12-18] MEDS ORDERED: DEXTROSE 50%-WATER SYRINGE 12.5 GM/25 ML DOSE IV PRN (17:00)
[2018-12-18] MEDS ORDERED: DEXTROSE 5%-WATER 250 ML with NOREPINEPHRINE BITARTRATE 4 MG IV PRN ×2 (17:07)
[2018-12-18] MEDS ORDERED: NOREPINEPHRINE BITARTRATE INJ/PF 4 MG/4 ML SDV IV ONE ×2 (17:09→20:02)
[2018-12-18] MEDS ORDERED: EPINEPHRINE INJ/PF 1 MG/1 ML AMPULE ONE (17:13)
[2018-12-18 17:19] LABS: HEMATOCRIT 33.7 % (37.9-51.0); MEAN CORPUSCULAR HEMOGLOBIN 27.6 pg (27.0-33.4); MEAN CORPUSCULAR HGB CONC 32.2 g/dL (32.0-36.0); MEAN CORPUSCULAR VOLUME 86 fl (80-97); PLATELET COUNT 106 10^3/uL (150-450); RED BLOOD COUNT 3.93 10^6/uL (4.35-5.55); RED CELL DISTRIBUTION WIDTH 14.7 % (11.5-14.0); WHITE BLOOD COUNT 13.7 10^3/uL (4.0-10.5)
[2018-12-18] MEDS ORDERED: NICARDIPINE HCL RTU, ISO-OS 20 MG/200 ML RTUINJ IV ONE (17:19)
[2018-12-18 17:21] LABS: HEMOGLOBIN 10.9 g/dL (13.5-17.0)
[2018-12-18] MEDS ORDERED: MORPHINE SULFATE 10 MG/ML INJ ONE ×2 (17:21→17:59)
[2018-12-18] MEDS ORDERED: ALBUMIN HUMAN 500 ML IV ONE (17:30)
[2018-12-18] MEDS ORDERED: RINGERS SOLUTION,LACTATED 1,000 ML IV ONE (17:30)
[2018-12-18 17:38] LABS: BLOOD UREA NITROGEN 16 mg/dL (7-20)
[2018-12-18 17:46] LABS: ANION GAP 9 (5-19); CALCIUM 8.4 mg/dL (8.4-10.2); CARBON DIOXIDE 23 mmol/L (22-30); CHLORIDE 106 mmol/L (98-107); GLUCOSE 263 mg/dL (75-110)
[2018-12-18 17:47] LABS: POTASSIUM 5.6 mmol/L (3.6-5.0)
[2018-12-18] MEDS ORDERED: CALCIUM GLUCONATE 1000 MG/10 ML INJ IV ONE ×2 (17:53→18:58)
[2018-12-18] MEDS ORDERED: TRANEXAMIC ACID INJ/PF 1,000 MG/10 ML SDV IV ONE (18:00)
[2018-12-18] MEDS ORDERED: ALBUMIN HUMAN 5% INJ 25 GM/500 ML BOTTLE IV ONE (18:30)
[2018-12-18 18:34] LABS: ARTERIAL BLOOD BASE EXCESS -5.5 mmol/L; ARTERIAL BLOOD FIO2 40%; ARTERIAL BLOOD H2CO3 1.28 mmol/L (1.05-1.35); ARTERIAL BLOOD HCO3 20.5 mmol/L (20-24); ARTERIAL BLOOD O2 SATURATION 96.1 % (94-98); ARTERIAL BLOOD PCO2 42.5 mmHg (35-45); ARTERIAL BLOOD PO2 89.7 mmHg (80-100); ARTERIAL BLOOD TOTAL CO2 21.8 mmol/L (23-27)
[2018-12-18] MEDS ORDERED: WATER FOR INJECTION,STERILE 1,000 ML with SODIUM BICARBONATE 125 MEQ IV PRN ×2 (18:54)
[2018-12-18] MEDS ORDERED: DISPOSABLE IV ONE (19:00)
[2018-12-18] MEDS ORDERED: HUM PROTHROMBIN CPLX IV ONE (19:00)
[2018-12-18] MEDS ORDERED: [UNRECOGNIZED DRUG - OTHER] IV ONE (19:00)
--- NOTE | 2018-12-18 19:03 | EKG REPORT ---
SEVERITY:- ABNORMAL ECG - BORDERLINE R WAVE PROGRESSION, ANTERIOR LEADS PROLONGED QT INTERVAL SINUS RHYTHM : Confirmed by: Yulia Ramos MD 18-Dec-2018 19:03:05
--- NOTE | 2018-12-18 19:13 | Operative Report ---
Bedside Procedure - History of Present Illness History of Present Illness: 68-year-old male who underwent a partial pancreatectomy developed hypotension in the ICU with suspicion for active bleeding. He had a cardiac arrest and need for large bore central access was done emergently for facilitation of blood products. Procedure was done without consent due to the emergent nature. Indication for Procedure: Post cardiac arrest with Hemorrhagic shock Date: 12/18/18 Surgeon: ROGELIO SAUNDERS - Central Line Left Femoral Time completed: 17:30 Consent obtained: No - Emergent Central line pre-insertion: Chloraprep applied, Sterile drapes applied, Other - Semi-sterile procedure Central line lumen type: Cordis/Introducer Ultrasound guided: No Line secured with sutures: Yes Central line post-insertion: Blood return from lumens, Sutured, Sterile dressing applied Number of attempts: 2 Complications: Yes - Could not pass catheter in right femoral attempt. EBL 10 ml Notes: 12/18/18 19:10 The patient was appropriately identified secondary to ongoing critical care. He had gone into full cardiac arrest with suspicion for bleed and required blood products. On second attempt the right femoral vein was found and the venous blood was noted. Wire was able to be placed without difficulty. Next a Cordis and introducer in situ was placed however could not be passed over wire. Incision was made larger however the wire was noted to be bending and the procedure was discontinued. There was no excessive bleeding. With the assistance of surgery the left femoral vein was found. The needle was placed and good venous blood was noted. Wire was placed without difficulty. Think the area was then dilated with just the dilator and then the dilator was placed into the large-bore central line Cordis and was able to be placed successfully. Good venous blood flow was noted in the wire and Cordis were removed successfully. Catheter was then affixed to transfusion tubing and patient received active blood products. Patient was in post cardiac correct rest state estimated blood loss was 10 cc.
[2018-12-18] MEDS ORDERED: TRANEXAMIC ACID INJ/PF 1,000 MG/10 ML SDV IV SCH (19:15)
[2018-12-18 19:20] LABS: ABSOLUTE MONOCYTES (AUTO) 1.5 10^3/uL (0.1-1.4); ABSOLUTE NEUT (AUTO) 10.8 10^3/uL (1.7-8.2); BASOPHILS % (AUTO) 0.1 % (0-2); EOSINOPHILS % (AUTO) 0.1 % (0-6); HEMATOCRIT 32.3 % (37.9-51.0); HEMOGLOBIN 10.5 g/dL (13.5-17.0); LYMPHOCYTES % (AUTO) 7.6 % (13-45); MEAN CORPUSCULAR HEMOGLOBIN 28.8 pg (27.0-33.4); MEAN CORPUSCULAR HGB CONC 32.6 g/dL (32.0-36.0); MEAN CORPUSCULAR VOLUME 88 fl (80-97); MONOCYTES % (AUTO) 11.2 % (3-13); RED BLOOD COUNT 3.65 10^6/uL (4.35-5.55); RED CELL DISTRIBUTION WIDTH 14.8 % (11.5-14.0); TOTAL CELLS COUNTED % (AUTO) 100 %; WHITE BLOOD COUNT 13.3 10^3/uL (4.0-10.5)
[2018-12-18 19:24] LABS: FIBRINOGEN 155 mg/dL (209-497); INTERNATIONAL RATION (INR) 1.46; PROTHROMBIN TIME 17.9 SEC (11.4-15.4)
[2018-12-18 19:31] LABS: PLATELET COUNT 80 10^3/uL (150-450)
[2018-12-18 19:33] LABS: ALBUMIN 2.3 g/dL (3.5-5.0); ALKALINE PHOSPHATASE 39 U/L (38-126); AMYLASE 41 U/L (30-110); ANION GAP 18 (5-19); ASPARTATE AMINO TRANSFERASE 39 U/L (17-59); BILIRUBIN,DIRECT 0.5 mg/dL (0.0-0.4); BILIRUBIN,TOTAL 0.9 mg/dL (0.2-1.3); BLOOD UREA NITROGEN 15 mg/dL (7-20); CALCIUM 7.4 mg/dL (8.4-10.2); CARBON DIOXIDE 16 mmol/L (22-30); CHLORIDE 107 mmol/L (98-107); GLUCOSE 307 mg/dL (75-110); POTASSIUM 5.4 mmol/L (3.6-5.0); TOTAL PROTEIN 4.5 g/dL (6.3-8.2)
[2018-12-18] MEDS: FENTANYL CITRATE INJ/PF 100 MCG/2 ML AMPUL IV PRN ×2 (19:45→21:45)
--- NOTE | 2018-12-18 19:51 | Operative Report ---
Nonrecallable Operative Report DATE OF SURGERY: 12/18/18 PREOPERATIVE DIAGNOSIS: hemoperitoneum s/p pancreatectomy POSTOPERATIVE DIAGNOSIS: hemoperitoneum s/p pancreatectomy OPERATION: exploratory laparotomy with control of intraabdominal bleeding SURGEON: MICAH ARIAS 1ST PLUMBING ENGINEERING DRAFTSPERSON: ETHEL WELCH ANESTHESIA: GA TISSUE REMOVED OR ALTERED: none COMPLICATIONS: none ESTIMATED BLOOD LOSS: 200 cc during procedure. 1800cc of intrabdominal blood. INTRAOPERATIVE FINDINGS: omental bleeding vessel and ooze from gallbladder bed. PROCEDURE: Procedure note; Patient is proximate 2 hours status post a pancreatectomy splenectomy in the intensive care unit noted to become hypotensive with increased blood output from his Kaveh-Ramires drain because of his hypotension he was brought emergently back to the operating room for this procedure. Patient was rapidly placed on the operating table his abdomen was prepped quickly with Betadine and a sterile drape was applied the midline kiarra were then removed with Vani clamps the PDS suture was cut and unraveled in the a bdominal cavity was open there is approximately 1800 cc of dark red blood within the abdominal cavity mixed with what appeared to be bright red blood emanating from the right upper quadrant we placed laparotomy sponges in the right upper quadrant to gain control while we suctioned the hemoperitoneum out to gain better visualization. Once this was done we made a thorough search for any obvious arterial bleeds there was nothing significant in the right upper quadrant in the kedar hepatis however there was one omental bleeder that was noted that was bleeding quite briskly this was handled with a Vani clamp and 2- 0 Vicryl tie. Once this was controlled we got better access to the right upper quadrant and noted the portal vein there was nothing that was obvious initially except some ooze from the edge of the pancreas which was controlled with either Bovie cautery 3-0 Prolene sutures or FloSeal and Surgicel. There was one small venous bleeder at the right lateral edge of the portal vein which was with controlled with a 3-0 Prolene suture. We then irrigated extensively with normal saline suctioned dry and then examined the liver bed with the gallbladder was removed and it was oozing significantly and therefore we cauterized that again with the Bovie cautery and then placed Tisseel as well as Surgicel to gain better control. We waited about 20 minutes irrigated the abdominal cavity with normal saline checked all her bleeding services and were comfortable that we had good hemostasis placed a second Kaveh-Ramires drain one was initially placed at the first operation in the right upper quadrant next to the cut edge of the pancreas and one in the gallbladder bed and brought that out through a stab wound in the right upper quadrant. I also created a pedicle of omentum off the transverse colon with the LigaSure device and packed that in the gallbladder fossa. Once this was completed we closed the midline fascia with a running double looped 0 PDS suture and closed the skin with standard skin clips. Estimated blood loss for the procedure was approximately 200 cc for the procedure but there was 1800 cc of non-clotted blood within the abdominal cavity upon opening it. Sponge needle counts were correct x2 for the termination of the procedure Dr. Welch was the operations and intelligence assistant was present throughout the entire procedure. Patient was then taken back to the intensive care unit in stable but critical condition remaining intubated.
[2018-12-18] MEDS ORDERED: TRANEXAMIC ACID IV ONE (20:00)
[2018-12-18] MEDS ORDERED: WATER IV ONE (20:00)
[2018-12-18] MEDS ORDERED: DEXTROSE 5% IV ONE (20:00)
--- NOTE | 2018-12-18 20:11 | CRITICAL CARE ADMISSION REPORT ---
HPI Date:: 12/18/18 Time:: 16:00 Reason for ICU Reason:: Post-partial pancreatectomy, COPD on mechanical ventilation HPI: 68-year-old black male with recent diagnosis of pancreatic cancer under went a partial pancreatectomy with the original intent for a full Whipple procedure. The tumor was discovered on CT scan. Patient had preop work-up including ultrasound however when in the operating room was found that the tumor more deeply involved with the surrounding vascular architecture. He also appeared to have a cirrhotic liver. He had an estimated blood loss of 1000 cc. He did receive Cell Saver fluids. The total amount is still being calculated. The patient was brought to the ICU paralyzed. He remained intubated secondary to the extent of the case and his COPD history. He was initially stable postoperatively and propofol was started with intent to monitor for potential wean. Approximately an hour after his arrival he was noted to have a precipitous drop in his blood pressures. I was at the bedside and perform passive leg raise which helped to get his blood pressure from 40/30-60 over 40. Imaging was ordered at this point and concerned that the epidural may be contributing the epidural was turned off. Albumin and IV fluids were being actively given. There was a transient improvement in his blood pressure however he had a continued precipitous drop. 1/2 mg of epinephrine was given because his heart rate was not responsive nor his blood pressure to IV fluid. We also placed a call to the surgeon while active resuscitation measures with fluid and epinephrine were given. After the epinephrine was given he had a precipitous rise in his blood pressure to 280/120. His heart rate increased to approximately 77. He was given fentanyl and restarted on propofol. Eventually the blood pressure lowered and became hypotensive once again. At this point the arterial catheter was flat line and a STEPHAN CORNELIUS was called. He received active resuscitation using ACLS protocol. He was given ACLS dosing epinephrine. Notably his KARIN output with blood was increased and he had blood from his incision region as well. We were concerned that he had an active bleed given the dramatic response in the vasopressor therapy. Tranexamic acid was ordered and large-bore central line was placed with the assistance of the surgeon who was at bedside. Stephan huggins was called and blood products were obtained and given through rapid transfuser. Had 2 distinct rounds requiring chest compressions after achieving ROSC. Products were actively transfused and the patient was prepped to go to the operating room. Started on levophed to transiently improve his blood pressure while blood products were given. The ICU OR staff transfer the patient to the OR and the surgeons urgently open his abdomen and found the source of bleeding. (Arterial-see operative report). He was receiving active fluid resuscitation up to this point. To reopening his abdomen patient was responding to voice and opening his eyes. Abdomen was closed. He is received a total of 9 units of packed red cells 2 units of FFP 1 unit of platelets and 1 unit of cryoprecipitate. In the second ICU turn from the OR patient's blood pressure was noted to be 150/80 and was started on propofol and given fentanyl for pain. His blood pressure improved to 122/60. Pupils are responsive. Past Medical History Past Medical History: Patient has a past medical history of coronary artery disease with an LAD stent in 2012 EF of 50 to 55% cardiogram done November showing EF of 65% history of [place], hypertension, dyslipidemia, mitral regurgitation, tricuspid regurgitation ,obstructive sleep apnea, CKD stage III arthritis, anxiety, syncope, PTSD, type 2 diabetes insulin requiring. Cardiac Medical History: Reports: Hyperlipidema, Hypertension Denies: Atrial Fibrillation, Congestive Heart Failure, Coronary Artery Disease, Myocardial Infarction, Peripheral Vascular Disease, Pulmonary Embolism, Heart Murmur Pulmonary Medical History: Reports: Sleep Apnea Denies: Asthma, Bronchitis, Chronic Obstructive Pulmonary Disease (COPD), Pneumonia, Respiratory Failure, Tuberculosis Neurological Medical History: Denies: Seizures Endocrine Medical History: Reports: Diabetes Mellitus Type 2 Denies: Hyperthyroidism, Hypothyroidism Renal/ Medical History: Denies: End Stage Renal Disease Malignancy Medical History: Reports: Pancreatic Cancer Denies: Leukemia, Lung Cancer Malignancy History Note: Pancreatic cancer new diagnosis GI Medical History: Reports: Cirrhosis - Noted in operating room Denies: Crohn's Disease, Gastroesophageal Reflux Disease, Hiatal Hernia Musculoskeltal Medical History: Reports: Arthritis Denies: Fibromyalgia Psychiatric Medical History: Reports: Depression - Anxiety, Post Traumatic Stress Disorder Denies: Bipolar Disorder, Dementia Hematology: Denies: Anemia, Hemophilia, Sickle Cell Disease Infectious Medical History: Denies: HIV Past Surgical History Past Surgical History: Exploratory laparotomy with partial pancreatectomy reexploration on this admi ssion Past Surgical History: Reports: Herniorrhaphy - Bilateral Inguinal/Femoral, Orthopedic Surgery - right knee Denies: Appendectomy, Cholecystectomy, Colostomy, Coronary Artery Bypass Graft, Gastric Bypass Surgery, Pacemaker, Tonsillectomy Social/Family History - Social History Lives with: Family, Spouse/Significant other Smoking Status: Former Smoker Frequency of Alcohol Use: Social Hx Recreational Drug Use: No Drugs: None Hx Prescription Drug Abuse: No - Medication/Allergies Home Medications: Carvedilol [Coreg 25 mg Tablet] 25 mg PO Q12 01/25/18 Furosemide [Lasix 20 mg Tablet] 60 mg PO DAILY 01/25/18 Insulin Glargine,Hum.rec.anlog [Lantus Insulin 100 Unit/mL Insulin Pen] 90 units SQ QHS 01/25/18 Losartan Potassium [Cozaar 100 mg Tablet] 100 mg PO DAILY 01/25/18 Atorvastatin Calcium [Lipitor 20 mg Tablet] 20 mg PO QHS 11/10/18 Citalopram Hydrobromide [Celexa] 40 mg PO DAILY 11/10/18 Insulin Aspart [Novolog] 15 unit SQ ACSUPPER 11/10/18 Potassium Chloride [Klor-Con M20] 20 meq PO DAILY 11/10/18 Amlodipine Besylate [Norvasc 10 mg Tablet] 10 mg PO DAILY 12/18/18 Aspirin [Ecotrin 81 mg EC Tablet] 81 mg PO DAILY 12/18/18 Oxycodone HCl 15 mg PO Q8HP PRN 12/18/18 Oxycodone HCl 20 mg PO Q12 12/18/18 Allergies/Adverse Reactions: hydrocodone Allergy (Intermediate, Verified 12/13/18 10:41) Hives morphine Allergy (Intermediate, Verified 12/13/18 10:41) Hives Penicillins Allergy (Intermediate, Verified 12/13/18 10:41) Hives, SOB Review of Systems ROS unobtainable: Due to endotracheal tube, Due to mental status Physical Exam Vital Signs: Temp Pulse Resp BP Pulse Ox 97.0 F 68 16 189/91 H 100 12/18/18 16:22 12/18/18 16:22 12/18/18 16:22 12/18/18 16:22 12/18/18 16:22 Intake & Output 12/17/18 12/18/18 12/19/18 06:59 06:59 06:59 Intake Total 0 Output Total 0 Balance 0 Weight 113 kg Weight/Height Weight 113 kg Height 6 ft 1 in Exam: Intubated ill toxic 68-year-old black male with vitiligo. Head exam: PRESENT: atraumatic, normocephalic, other - extensive vitiligo Eye exam: PRESENT: conjunctiva pink, nystagmus, PERRLA. ABSENT: conjunctival injection, scleral icterus Mouth exam: PRESENT: dry mucosa, neck supple Neck exam: ABSENT: carotid bruit, JVD, lymphadenopathy, tracheal deviation Respiratory exam: PRESENT: clear to auscultation roman, unlabored. ABSENT: accessory muscle use Cardiovascular exam: PRESENT: irregular rhythm, +S1, +S2 - significant bouts of hypotension, bradycardia GI/Abdominal exam: PRESENT: other - Increased bleeding noted from KARIN dressing and incision.. ABSENT: distended Rectal exam: PRESENT: deferred Gentrourinary exam: PRESENT: indwelling catheter Extremities exam: ABSENT: pedal edema Musculoskeletal exam: PRESENT: normal inspection. ABSENT: deformity, dislocatio n Neurological exam: PRESENT: altered - In the operating room patient responded to voice. He reportedly responded to the nurses voice and moved his extremities postoperatively. He was paralyzed during the second examination. Skin exam: PRESENT: pallor. ABSENT: cyanosis Tubes/Lines: PRESENT: Endotracheal Tube, Central Line - Left subclavian, left femoral cordis, Arterial Catheter - left radial, Peg Tube, Nasogastic Tube, Other - Epidural Laboratory/Radiographs Laboratory Results: 12/18/18 12/18/18 12/18/18 08:19 08:19 08:19 WBC 8.0 RBC 4.29 L Hgb 11.9 L Hct 36.9 L MCV 86 MCH 27.8 MCHC 32.4 RDW 14.2 H Plt Count 165 Seg Neutrophils % Carbonic Acid HCO3/H2CO3 Ratio ABG pH ABG pCO2 ABG pO2 ABG HCO3 ABG O2 Saturation ABG Base Excess FiO2 Sodium Potassium Cancelled Chloride Carbon Dioxide Anion Gap BUN Creatinine Est GFR ( Amer) Glucose Calcium Blood Type Cancelled Antibody Screen Cancelled 12/18/18 12/18/18 12/18/18 09:08 09:08 13:45 WBC 8.2 RBC 2.81 L Hgb 7.9 L D Hct 23.8 L MCV 85 MCH 28.3 MCHC 33.4 RDW 13.9 Plt Count 118 L Seg Neutrophils % 83.6 H Carbonic Acid HCO3/H2CO3 Ratio ABG pH ABG pCO2 ABG pO2 ABG HCO3 ABG O2 Saturation ABG Base Excess FiO2 Sodium Potassium 4.1 Chloride Carbon Dioxide Anion Gap BUN Creatinine Est GFR ( Amer) Glucose Calcium Blood Type O POSITIVE Antibody Screen NEGATIVE 12/18/18 12/18/18 12/18/18 13:50 17:04 17:04 WBC 13.7 H RBC 3.93 L Hgb 10.9 L D Hct 33.7 L MCV 86 MCH 27.6 MCHC 32.2 RDW 14.7 H Plt Count 106 L Seg Neutrophils % Carbonic Acid 0.93 L HCO3/H2CO3 Ratio 23:1 ABG pH 7.46 H ABG pCO2 31.0 L ABG pO2 235.5 H ABG HCO3 21.5 ABG O2 Saturation 99.6 H ABG Base Excess -2.0 FiO2 50 Sodium 137.8 Potassium 5.6 H D Chloride 106 Carbon Dioxide 23 Anion Gap 9 BUN 16 Creatinine 1.61 H Est GFR ( Amer) 52 L Glucose 263 H Calcium 8.4 Blood Type Antibody Screen 12/18/18 17:38 WBC RBC Hgb Hct MCV MCH MCHC RDW Plt Count Seg Neutrophils % Carbonic Acid 1.28 HCO3/H2CO3 Ratio 16:1 ABG pH 7.30 L ABG pCO2 42.5 ABG pO2 89.7 ABG HCO3 20.5 ABG O2 Saturation 96.1 ABG Base Excess -5.5 FiO2 40% Sodium Potassium Chloride Carbon Dioxide Anion Gap BUN Creatinine Est GFR ( Amer) Glucose Calcium Blood Type Antibody Screen Impressions: Chest X-Ray 12/18/18 00:00 IMPRESSION: Support lines and tubes have been placed as described. EKG: No active ischemia. No acute changes. Critical Time Critical Time (minutes): 230 -: Patient has had a significant postoperative event. From a respiratory standpoint we will keep him on PEEP of 10 tidal volume of 6-8 mL's per kilo and be very vigilant to watch for worsening respiratory failure from TROLI or TACO. Chest x-ray is clear and his ET tube has been pushed down further based on an x-ray which showed it high in the trachea. Repeat chest x- ray after second OR shows clear lungs eduardo and ET tube appropriate position. Keep plateau pressure less than 30 watch for abdominal compartment syndrome. From a cardiac and hemodynamic standpoint we will keep his blood pressure above 90 and no higher than 130mmHg with MAP of 60-65. Currently he is not on any vasopressor therapy. We will repeat troponins and follow his hemodynamics. Hematologic standpoint patient has received a large amount of products. We will give him additional units of platelets. Will also infuse tranexamic acid over 8 to 12 hours. He was noted to have some mild capillary bleeding throughout the case. Patient was also noted to be cirrhotic and had significant portal vein involvement. The bleeding appears to have come from excessive portal pressures. Will be prudent to watch volume status as well. Patient had central lines placed urgently under semi-sterile conditions. When he is stabilized we will remove these. I placed the patient on sterile water with 125 mEq of sodium bicarb for a balanced pH solution for resuscitation. He appears to be adequately volume resuscitated and we will limit the amount of fluid he receives now. Careful attention to the development of abdominal compartment syndrome will be done with multiple examinations by nursing. Patient has moderate obesity and history of sleep apnea. Given the amount of volume he is at risk for persistent respiratory failure. Will evaluate for the ability to safely liberate him from the ventilator. He currently has an epidural catheter in which is not being used. We will keep this in during this coagulopathic state and will remove when it is safe. Catheter will be removed by anesthesia. Neurological perspective we will reduce the propofol and attempt to get an adequate neurological exam. His pupils are reactive on my evaluation. He is recovering from Neuromuscular blockade Patient had significant ongoing events today and is at risk for infection, volume overload, stroke. He has received Tranexamic acid will receive a continuous infusion. This is essential because of the amount of bleeding in the postsurgical capillary bleed. Will be prudent to watch for VTE. The care of a critically ill patient is dynamic. This note represents a static moment in the admission process. Orders and treatments may be given simultaneously and urgently, and time is not tax compliance representative of the treatment process. This patient requires Critical Care secondary to life threatening organ or limb dysfunction. Without the need for Critical Care services, the patient is at r isk for increased mortality and morbidity.
[2018-12-18] MEDS: INSULIN LISPRO 100 UNIT/ML 3 ML VIAL SUBCUT SCH (20:14)
[2018-12-18] MEDS: METRONIDAZOLE 500 MG/NS RTU 500 MG/100 ML RTUPB IV SCH (20:14)
[2018-12-18] MEDS: ALBUMIN HUMAN 12.5 GM/50 ML RTUINJ IV SCH ×2 (20:17→20:18)
--- NOTE | 2018-12-18 20:17 | RADIOLOGY REPORT (SQ) ---
EXAM DESCRIPTION: XR CHEST 1 VIEW COMPLETED DATE/TME: 12/18/2018 00:00 CLINICAL HISTORY: 68 years, Male, respiratory distress COMPARISON: 09/08/2018 chest NUMBER OF VIEWS: 1 TECHNIQUE: Portable chest LIMITATIONS: None. FINDINGS: Stable cardiomegaly. Endotracheal tube, with the tip approximately 4 cm above the level of the curt. Enteric tube with the tip extending into the left upper quadrant. Left central venous catheter with the tip likely in the brachiocephalic vein. No pneumothorax. Overlying cardiac leads and wires. Probable tiny bibasilar effusions IMPRESSION: Lines and catheters in place, as above.. Probable tiny bibasilar effusions copyright 2010 [employer]- All Rights Reserved
[2018-12-18] MEDS ORDERED: INFLUENZA QUAD (6MOS+) 2019-20 VAC 0.5 ML SYR IM ONE (21:02)
[2018-12-18] MEDS: CEFAZOLIN SODIUM 1 GM in DEXTROSE 5%-WATER 50 ML IV SCH (21:55)
[2018-12-18] MEDS: FAMOTIDINE INJ/PF 20 MG/2 ML SDV IV SCH (21:56)
[2018-12-18] MEDS ORDERED: METRONIDAZOLE 500 MG/NS RTU 250 MG in CONTAINER,EMPTY 1 EACH IV SCH (22:00)
[2018-12-18 22:41] LABS: HEMATOCRIT 34.2 % (37.9-51.0); HEMOGLOBIN 11.4 g/dL (13.5-17.0); MEAN CORPUSCULAR HGB CONC 33.5 g/dL (32.0-36.0); MEAN CORPUSCULAR VOLUME 87 fl (80-97); RED BLOOD COUNT 3.95 10^6/uL (4.35-5.55)
[2018-12-18 22:49] LABS: INTERNATIONAL RATION (INR) 1.39; PROTHROMBIN TIME 17.2 SEC (11.4-15.4)
[2018-12-18 22:50] LABS: FIBRINOGEN 212 mg/dL (209-497); PARTIAL THROMBOPLASTIN TIME 31.4 SEC (23.5-35.8)
[2018-12-18 22:52] LABS: BLOOD UREA NITROGEN 16 mg/dL (7-20); CALCIUM 8.5 mg/dL (8.4-10.2); CARBON DIOXIDE 21 mmol/L (22-30); CHLORIDE 103 mmol/L (98-107); GLUCOSE 324 mg/dL (75-110); POTASSIUM 5.7 mmol/L (3.6-5.0)
[2018-12-18 22:53] LABS: ALBUMIN 3.2 g/dL (3.5-5.0); ALKALINE PHOSPHATASE 48 U/L (38-126); ANION GAP 12 (5-19); ASPARTATE AMINO TRANSFERASE 53 U/L (17-59); BILIRUBIN,DIRECT 1.5 mg/dL (0.0-0.4); PHOSPHORUS 3.8 mg/dL (2.5-4.5); TOTAL PROTEIN 5.4 g/dL (6.3-8.2)
[2018-12-18 23:02] LABS: ARTERIAL BLOOD BASE EXCESS -5.3 mmol/L; ARTERIAL BLOOD H2CO3 0.87 mmol/L (1.05-1.35); ARTERIAL BLOOD HCO3 17.9 mmol/L (20-24); ARTERIAL BLOOD O2 SATURATION 99.2 % (94-98); ARTERIAL BLOOD PH 7.41 (7.35-7.45); ARTERIAL BLOOD PO2 166.4 mmHg (80-100); ARTERIAL BLOOD TOTAL CO2 18.8 mmol/L (23-27); PLATELET COUNT 71 10^3/uL (150-450)
[2018-12-18 23:04] LABS: ARTERIAL BLOOD FIO2 40%
[2018-12-18 23:14] LABS: ABSOLUTE LYMPHOCYTES# (MANUAL) 0.7 10^3/uL (0.5-4.7); ABSOLUTE MONOCYTES # (MANUAL) 0.7 10^3/uL (0.1-1.4); BAND NEUTROPHILS % (MANUAL) 7 % (3-5); BASOPHILS % (MANUAL) 0 % (0-2); EOSINOPHILS % (MANUAL) 0 % (0-6); LYMPHOCYTES % (MANUAL) 6 % (13-45); MONOCYTES % (MANUAL) 6 % (3-13); SEGMENTED NEUTROPHILS % (MAN) 81 % (42-78); TOTAL CELLS COUNTED 100
[2018-12-18 23:15] LABS: ANISOCYTOSIS SLIGHT; HYPOCHROMASIA SLIGHT; PLATELET COMMENT DECREASED
[2018-12-19] MEDS: PROPOFOL 1,000 MG/100 ML INFUS..BTL IV PRN ×3 (01:10→06:35)
[2018-12-19] MEDS: METRONIDAZOLE 500 MG/NS RTU 500 MG/100 ML RTUPB IV SCH ×3 (01:27→17:11)
[2018-12-19] MEDS: FENTANYL CITRATE INJ/PF 100 MCG/2 ML AMPUL IV PRN ×5 (02:08→22:29)
[2018-12-19] MEDS: CEFAZOLIN SODIUM 1 GM in DEXTROSE 5%-WATER 50 ML IV SCH ×3 (05:20→21:49)
[2018-12-19] MEDS: INSULIN LISPRO 100 UNIT/ML 3 ML VIAL SUBCUT SCH ×4 (05:20→17:23)
[2018-12-19 05:23] LABS: ARTERIAL BLOOD H2CO3 1.05 mmol/L (1.05-1.35); ARTERIAL BLOOD HCO3 24.3 mmol/L (20-24); ARTERIAL BLOOD O2 SATURATION 94.5 % (94-98); ARTERIAL BLOOD PCO2 34.9 mmHg (35-45); ARTERIAL BLOOD PH 7.46 (7.35-7.45); ARTERIAL BLOOD PO2 67.5 mmHg (80-100); ARTERIAL BLOOD TOTAL CO2 25.4 mmol/L (23-27)
[2018-12-19 05:24] LABS: ARTERIAL BLOOD FIO2 21%
[2018-12-19 05:25] LABS: ABSOLUTE MONOCYTES (AUTO) 1.2 10^3/uL (0.1-1.4); ABSOLUTE NEUT (AUTO) 7.6 10^3/uL (1.7-8.2); BASOPHILS % (AUTO) 0.1 % (0-2); HEMATOCRIT 29.4 % (37.9-51.0); HEMOGLOBIN 10.2 g/dL (13.5-17.0); LYMPHOCYTES % (AUTO) 10.1 % (13-45); MEAN CORPUSCULAR HEMOGLOBIN 29.8 pg (27.0-33.4); MEAN CORPUSCULAR HGB CONC 34.8 g/dL (32.0-36.0); MEAN CORPUSCULAR VOLUME 86 fl (80-97); MONOCYTES % (AUTO) 12.5 % (3-13); RED BLOOD COUNT 3.43 10^6/uL (4.35-5.55); RED CELL DISTRIBUTION WIDTH 14.2 % (11.5-14.0); SEGMENTED NEUTROPHILS % (AUTO) 77.3 % (42-78); TOTAL CELLS COUNTED % (AUTO) 100 %; WHITE BLOOD COUNT 9.9 10^3/uL (4.0-10.5)
[2018-12-19 05:27] LABS: INTERNATIONAL RATION (INR) 1.28; PROTHROMBIN TIME 16.1 SEC (11.4-15.4)
[2018-12-19 05:28] LABS: PARTIAL THROMBOPLASTIN TIME 29.5 SEC (23.5-35.8); PLATELET COUNT 173 10^3/uL (150-450)
[2018-12-19 05:39] LABS: ALBUMIN 2.9 g/dL (3.5-5.0); ALKALINE PHOSPHATASE 49 U/L (38-126); AMYLASE 73 U/L (30-110); ANION GAP 10 (5-19); ASPARTATE AMINO TRANSFERASE 53 U/L (17-59); BILIRUBIN,DIRECT 1.9 mg/dL (0.0-0.4); BILIRUBIN,TOTAL 2.9 mg/dL (0.2-1.3); BLOOD UREA NITROGEN 19 mg/dL (7-20); CALCIUM 8.4 mg/dL (8.4-10.2); CARBON DIOXIDE 23 mmol/L (22-30); CHLORIDE 105 mmol/L (98-107); GLUCOSE 312 mg/dL (75-110); PHOSPHORUS 3.6 mg/dL (2.5-4.5); TOTAL PROTEIN 5.1 g/dL (6.3-8.2)
[2018-12-19] MEDS: DEXMEDETOMIDINE IN 0.9 % NACL 400 MCG/100 ML RTUPB IV PRN ×4 (08:41→22:32)
[2018-12-19] MEDS: FAMOTIDINE INJ/PF 20 MG/2 ML SDV IV SCH ×2 (09:32→21:49)
--- NOTE | 2018-12-19 11:40 | RADIOLOGY REPORT (SQ) ---
EXAM DESCRIPTION: CHEST SINGLE VIEW COMPLETED DATE/TIME: 12/19/2018 8:59 am REASON FOR STUDY: Tube placement, CENTRAL LINE PLACEMENT COMPARISON: 12/18/2018 NUMBER OF VIEWS: One view. TECHNIQUE: Single frontal radiographic image of the chest acquired. LIMITATIONS: Overlying support apparatus. FINDINGS: LUNGS AND PLEURA: Stable appearance. No pneumothorax. MEDIASTINUM AND HEART: Stable heart size and mediastinal structures. SUPPORT DEVICES: Similar location without change. BONY STRUCTURES: No acute findings. HARDWARE: None. OTHER: No other significant finding. IMPRESSION: STABLE APPEARANCE OF THE CHEST. SUPPORT DEVICES UNCHANGED. Reading location - IP/workstation name: [email or web address]
[2018-12-19] MEDS: METHOCARBAMOL 500 MG in DEXTROSE 5%-WATER 50 ML IV SCH ×2 (11:59→17:11)
[2018-12-19 13:07] LABS: ARTERIAL BLOOD BASE EXCESS 1.7 mmol/L; ARTERIAL BLOOD H2CO3 1.06 mmol/L (1.05-1.35); ARTERIAL BLOOD O2 SATURATION 94.5 % (94-98); ARTERIAL BLOOD PCO2 35.1 mmHg (35-45); ARTERIAL BLOOD PH 7.47 (7.35-7.45); ARTERIAL BLOOD PO2 66.8 mmHg (80-100)
[2018-12-19 13:08] LABS: ARTERIAL BLOOD FIO2 21%
--- NOTE | 2018-12-19 15:59 | PDOC PROGRESS REPORT ---
Subjective Progress Note for:: 12/19/18 Subjective:: awake and following commands, intubated Reason For Visit: PANCREATIC CANCER Physical Exam Vital Signs: Temp Pulse Resp BP Pulse Ox 99.7 F 67 16 127/68 H 96 12/19/18 12:00 12/19/18 14:00 12/19/18 14:00 12/19/18 14:00 12/19/18 14:00 Intake & Output 12/18/18 12/19/18 12/20/18 06:59 06:59 06:59 Intake Total 1233 322 Output Total 1575 395 Balance -342 -73 Weight 121.5 kg 121.5 kg General appearance: PRESENT: no acute distress Eye exam: PRESENT: EOMI Mouth exam: PRESENT: moist Neck exam: PRESENT: full ROM Respiratory exam: PRESENT: clear to auscultation roman Cardiovascular exam: PRESENT: RRR Pulses: PRESENT: normal radial pulses, normal femoral pulses GI/Abdominal exam: PRESENT: soft - jessy' serous Rectal exam: PRESENT: deferred Neurological exam: PRESENT: awake Results Laboratory Results: 12/19/18 05:00 12/19/18 05:00 12/18/18 12/18/18 12/18/18 09:08 17:04 17:04 WBC 13.7 H RBC 3.93 L Hgb 10.9 L D Hct 33.7 L MCV 86 MCH 27.6 MCHC 32.2 RDW 14.7 H Plt Count 106 L Seg Neutrophils % Carbonic Acid HCO3/H2CO3 Ratio ABG pH ABG pCO2 ABG pO2 ABG HCO3 ABG O2 Saturation ABG Base Excess FiO2 Sodium 137.8 Potassium 5.6 H D Chloride 106 Carbon Dioxide 23 Anion Gap 9 BUN 16 Creatinine 1.61 H Est GFR ( Amer) 52 L Glucose 263 H Lactic Acid Calcium 8.4 Phosphorus Magnesium Total Bilirubin AST Alkaline Phosphatase Ammonia Total Protein Albumin Amylase Lipase Blood Type O POSITIVE Antibody Screen NEGATIVE 12/18/18 12/18/18 12/18/18 17:38 18:55 18:55 WBC 13.3 H RBC 3.65 L Hgb 10.5 L Hct 32.3 L MCV 88 MCH 28.8 MCHC 32.6 RDW 14.8 H Plt Count 80 L Seg Neutrophils % 81.0 H Carbonic Acid 1.28 HCO3/H2CO3 Ratio 16:1 ABG pH 7.30 L ABG pCO2 42.5 ABG pO2 89.7 ABG HCO3 20.5 ABG O2 Saturation 96.1 ABG Base Excess -5.5 FiO2 40% Sodium 140.8 Potassium 5.4 H Chloride 107 Carbon Dioxide 16 L Anion Gap 18 BUN 15 Creatinine 1.38 H Est GFR ( Amer) > 60 Glucose 307 H Lactic Acid Calcium 7.4 L Phosphorus Magnesium Total Bilirubin 0.9 AST 39 Alkaline Phosphatase 39 Ammonia Total Protein 4.5 L Albumin 2.3 L Amylase 41 Lipase 328.7 H Blood Type Antibody Screen 12/18/18 12/18/18 12/18/18 18:55 22:08 22:08 WBC 11.0 H RBC 3.95 L Hgb 11.4 L Hct 34.2 L MCV 87 MCH 29.0 MCHC 33.5 RDW 14.0 Plt Count 71 L Seg Neutrophils % Not Reportable Carbonic Acid 0.87 L HCO3/H2CO3 Ratio 20:1 ABG pH 7.41 ABG pCO2 29.0 L ABG pO2 166.4 H ABG HCO3 17.9 L ABG O2 Saturation 99.2 H ABG Base Excess -5.3 FiO2 40% Sodium Potassium Chloride Carbon Dioxide Anion Gap BUN Creatinine Est GFR ( Amer) Glucose Lactic Acid 5.7 H Calcium Phosphorus Magnesium Total Bilirubin AST Alkaline Phosphatase Ammonia Total Protein Albumin Amylase Lipase Blood Type Antibody Screen 12/18/18 12/18/18 12/19/18 22:08 22:08 05:00 WBC RBC Hgb Hct MCV MCH MCHC RDW Plt Count Seg Neutrophils % Carbonic Acid HCO3/H2CO3 Ratio ABG pH ABG pCO2 ABG pO2 ABG HCO3 ABG O2 Saturation ABG Base Excess FiO2 Sodium 136.1 L Potassium 5.7 H Chloride 103 Carbon Dioxide 21 L Anion Gap 12 BUN 16 Creatinine 1.29 H Est GFR ( Amer) > 60 Glucose 324 H Lactic Acid 3.1 H Calcium 8.5 Phosphorus 3.8 Magnesium 1.8 Total Bilirubin 3.0 H AST 53 Alkaline Phosphatase 48 Ammonia < 8.7 L Total Protein 5.4 L Albumin 3.2 L Amylase Lipase Blood Type Antibody Screen 12/19/18 12/19/18 12/19/18 05:00 05:00 05:00 WBC 9.9 RBC 3.43 L Hgb 10.2 L Hct 29.4 L MCV 86 MCH 29.8 MCHC 34.8 RDW 14.2 H Plt Count 173 D Seg Neutrophils % 77.3 Carbonic Acid 1.05 HCO3/H2CO3 Ratio 23:1 ABG pH 7.46 H ABG pCO2 34.9 L ABG pO2 67.5 L ABG HCO3 24.3 H ABG O2 Saturation 94.5 ABG Base Excess 1.0 FiO2 21% Sodium 138.3 Potassium 5.0 Chloride 105 Carbon Dioxide 23 Anion Gap 10 BUN 19 Creatinine 1.39 H Est GFR ( Amer) > 60 Glucose 312 H Lactic Acid Calcium 8.4 Phosphorus 3.6 Magnesium 1.8 Total Bilirubin 2.9 H AST 53 Alkaline Phosphatase 49 Ammonia Total Protein 5.1 L Albumin 2.9 L Amylase 73 Lipase 293.1 Blood Type Antibody Screen 12/19/18 12/19/18 05:00 12:00 WBC RBC Hgb Hct MCV MCH MCHC RDW Plt Count Seg Neutrophils % Carbonic Acid 1.06 HCO3/H2CO3 Ratio 23:1 ABG pH 7.47 H ABG pCO2 35.1 ABG pO2 66.8 L ABG HCO3 25.0 H ABG O2 Saturation 94.5 ABG Base Excess 1.7 FiO2 21% Sodium Potassium Chloride Carbon Dioxide Anion Gap BUN Creatinine Est GFR ( Amer) Glucose Lactic Acid 1.9 Calcium Phosphorus Magnesium Total Bilirubin AST Alkaline Phosphatase Ammonia Total Protein Albumin Amylase Lipase Blood Type Antibody Screen 12/18/18 12/19/18 22:08 12:00 Troponin I 0.059 0.148 Impressions: Chest X-Ray 12/19/18 06:00 IMPRESSION: STABLE APPEARANCE OF THE CHEST. SUPPORT DEVICES UNCHANGED. Assessment & Plan - Time Time Spent with patient: 25-34 minutes - Plan Summary Plan Summary: s/p subtotal pancreatectomy/splenectomy for pancreatic cancer takeback for bleed large blood loss this am stable on vent h/h stable still with high blood glucose, requiring insulin plan will replace central line ( got pull back last pm) cont icu care per sales representative business courses will cont to follow closely.
--- NOTE | 2018-12-19 16:21 | PDOC PROGRESS REPORT ---
Subjective Progress Note for:: 12/19/18 Subjective:: 12.19.18: Despite the significant events 12/18/2018 patient's condition has stabilized. He has had no further hypotension. Excessive bleeding or output from KARIN tubes. Does note minimal spots to stimulus however he has been requiring higher dose of propofol to maintain a lower blood pressure to prevent further bleeding. Is not bleeding from any other sites and has had no episodes of shock. His lactic acid is cleared as well. Has had a slight increase in his creatinine but not significant. I's and O's were evaluated. His PO2 is lower this morning however chest x-ray is unremarkable. ECG shows lateral T wave inversion but no depression. These are new. Done during SBT. Troponin shows slight (< 0.5 elevation). No hemodynamic instability. No arrhythmias. Reason For Visit: 12.18.18: 68-year-old black male with recent diagnosis of pancreatic cancer under went a partial pancreatectomy with the original intent for a full Whipple procedure. The tumor was discovered on CT scan. Patient had preop work-up including ultrasound however when in the operating room was found that the tumor more deeply involved with the surrounding vascular architecture. He also appeared to have a cirrhotic liver. He had an estimated blood loss of 1000 cc. He did receive Cell Saver fluids. The total amount is still being calculated. The patient was brought to the ICU paralyzed. He remained intubated secondary to the extent of the case and his COPD history. He was initially stable pos toperatively and propofol was started with intent to monitor for potential wean. Approximately an hour after his arrival he was noted to have a precipitous drop in his blood pressures. I was at the bedside and perform passive leg raise which helped to get his blood pressure from 40/30-60 over 40. Imaging was ordered at this point and concerned that the epidural may be contributing the epidural was turned off. Albumin and IV fluids were being actively given. There was a transient improvement in his blood pressure however he had a continued precipitous drop. 1/2 mg of epinephrine was given because his heart rate was not responsive nor his blood pressure to IV fluid. We also placed a call to the surgeon while active resuscitation measures with fluid and epinephrine were given. After the epinephrine was given he had a precipitous rise in his blood pressure to 280/120. His heart rate increased to approximately 77. He was given fentanyl and restarted on propofol. Eventually the blood pressure lowered and became hypotensive once again. At this point the arterial catheter was flat line and a STEPHAN CORNELIUS was called. He received active resuscitation using ACLS protocol. He was given ACLS dosing epinephrine. Notably his KARIN output with blood was increased and he had blood from his incision region as well. We were concerned that he had an active bleed given the dramatic response in the vasopressor therapy. Tranexamic acid was ordered and large-bore central line was placed with the assistance of the surgeon who was at bedside. Stephan hernándezfredi was called and blood products were obtained and given through rapid transfuser. Had 2 distinct rounds requiring chest compressions after achieving ROSC. Products were actively transfused and the patient was prepped to go to the operating room. Started on levophed to transiently improve his blood pressure while blood products were given. The ICU OR staff transfer the patient to the OR and the surgeons urgently open his abdomen and found the source of bleeding. (Arterial-see operative report). He was receiving active fluid resuscitation up to this point. To reopening his abdomen patient was responding to voice and opening his eyes. Abdomen was closed. He is received a total of 9 units of packed red cells 2 units of FFP 1 unit of platelets and 1 unit of cryoprecipitate. In the second ICU turn from the OR patient's blood pressure was noted to be 150/80 and was started on propofol and given fentanyl for pain. His blood pressure improved to 122/60. Pupils are responsive. Physical Exam Vital Signs: Temp Pulse Resp BP Pulse Ox 99.0 F 70 16 129/67 H 98 12/19/18 06:00 12/19/18 06:00 12/19/18 06:00 12/19/18 06:00 12/19/18 06:00 Intake & Output 12/18/18 12/19/18 12/20/18 06:59 06:59 06:59 Intake Total 1133 Output Total 1575 Balance -442 Weight 121.5 kg Physical Exam: Intubated nontoxic but ill-appearing 68-year-old black male with vitiligo no active distress. General appearance: PRESENT: no acute distress, obese, other - Extensive vitilig o Eye exam: PRESENT: conjunctiva pink, EOMI, PERRLA. ABSENT: conjunctival injection, nystagmus, scleral icterus Mouth exam: PRESENT: neck supple Neck exam: ABSENT: carotid bruit, JVD, lymphadenopathy, thyromegaly, tracheal d eviation, tracheostomy Respiratory exam: PRESENT: clear to auscultation roman, unlabored. ABSENT: accessory muscle use, retraction, rhonchi, tachypnea, wheezes Cardiovascular exam: PRESENT: RRR, +S1, +S2. ABSENT: clicks, diastolic murmur, gallop, rubs, systolic murmur Pulses: PRESENT: other - 1+ DP pulse on right. 2+ on left GI/Abdominal exam: PRESENT: diminished bowel sounds, soft. ABSENT: distended, firm, rebound, rigid Extremities exam: PRESENT: pedal edema Musculoskeletal exam: ABSENT: deformity, dislocation Neurological exam: PRESENT: awake Results Laboratory Results: 12/19/18 05:00 12/19/18 05:00 12/18/18 12/18/18 12/18/18 08:19 08:19 08:19 WBC 8.0 RBC 4.29 L Hgb 11.9 L Hct 36.9 L MCV 86 MCH 27.8 MCHC 32.4 RDW 14.2 H Plt Count 165 Seg Neutrophils % Carbonic Acid HCO3/H2CO3 Ratio ABG pH ABG pCO2 ABG pO2 ABG HCO3 ABG O2 Saturation ABG Base Excess FiO2 Sodium Potassium Cancelled Chloride Carbon Dioxide Anion Gap BUN Creatinine Est GFR ( Amer) Glucose Lactic Acid Calcium Phosphorus Magnesium Total Bilirubin AST Alkaline Phosphatase Ammonia Total Protein Albumin Amylase Lipase Blood Type Cancelled Antibody Screen Cancelled 12/18/18 12/18/18 12/18/18 09:08 09:08 13:45 WBC 8.2 RBC 2.81 L Hgb 7.9 L D Hct 23.8 L MCV 85 MCH 28.3 MCHC 33.4 RDW 13.9 Plt Count 118 L Seg Neutrophils % 83.6 H Carbonic Acid HCO3/H2CO3 Ratio ABG pH ABG pCO2 ABG pO2 ABG HCO3 ABG O2 Saturation ABG Base Excess FiO2 Sodium Potassium 4.1 Chloride Carbon Dioxide Anion Gap BUN Creatinine Est GFR ( Amer) Glucose Lactic Acid Calcium Phosphorus Magnesium Total Bilirubin AST Alkaline Phosphatase Ammonia Total Protein Albumin Amylase Lipase Blood Type O POSITIVE Antibody Screen NEGATIVE 12/18/18 12/18/18 12/18/18 13:50 17:04 17:04 WBC 13.7 H RBC 3.93 L Hgb 10.9 L D Hct 33.7 L MCV 86 MCH 27.6 MCHC 32.2 RDW 14.7 H Plt Count 106 L Seg Neutrophils % Carbonic Acid 0.93 L HCO3/H2CO3 Ratio 23:1 ABG pH 7.46 H ABG pCO2 31.0 L ABG pO2 235.5 H ABG HCO3 21.5 ABG O2 Saturation 99.6 H ABG Base Excess -2.0 FiO2 50 Sodium 137.8 Potassium 5.6 H D Chloride 106 Carbon Dioxide 23 Anion Gap 9 BUN 16 Creatinine 1.61 H Est GFR ( Amer) 52 L Glucose 263 H Lactic Acid Calcium 8.4 Phosphorus Magnesium Total Bilirubin AST Alkaline Phosphatase Ammonia Total Protein Albumin Amylase Lipase Blood Type Antibody Screen 12/18/18 12/18/18 12/18/18 17:38 18:55 18:55 WBC 13.3 H RBC 3.65 L Hgb 10.5 L Hct 32.3 L MCV 88 MCH 28.8 MCHC 32.6 RDW 14.8 H Plt Count 80 L Seg Neutrophils % 81.0 H Carbonic Acid 1.28 HCO3/H2CO3 Ratio 16:1 ABG pH 7.30 L ABG pCO2 42.5 ABG pO2 89.7 ABG HCO3 20.5 ABG O2 Saturation 96.1 ABG Base Excess -5.5 FiO2 40% Sodium 140.8 Potassium 5.4 H Chloride 107 Carbon Dioxide 16 L Anion Gap 18 BUN 15 Creatinine 1.38 H Est GFR ( Amer) > 60 Glucose 307 H Lactic Acid Calcium 7.4 L Phosphorus Magnesium Total Bilirubin 0.9 AST 39 Alkaline Phosphatase 39 Ammonia Total Protein 4.5 L Albumin 2.3 L Amylase 41 Lipase 328.7 H Blood Type Antibody Screen 12/18/18 12/18/18 12/18/18 18:55 22:08 22:08 WBC 11.0 H RBC 3.95 L Hgb 11.4 L Hct 34.2 L MCV 87 MCH 29.0 MCHC 33.5 RDW 14.0 Plt Count 71 L Seg Neutrophils % Not Reportable Carbonic Acid 0.87 L HCO3/H2CO3 Ratio 20:1 ABG pH 7.41 ABG pCO2 29.0 L ABG pO2 166.4 H ABG HCO3 17.9 L ABG O2 Saturation 99.2 H ABG Base Excess -5.3 FiO2 40% Sodium Potassium Chloride Carbon Dioxide Anion Gap BUN Creatinine Est GFR ( Amer) Glucose Lactic Acid 5.7 H Calcium Phosphorus Magnesium Total Bilirubin AST Alkaline Phosphatase Ammonia Total Protein Albumin Amylase Lipase Blood Type Antibody Screen 12/18/18 12/18/18 12/19/18 22:08 22:08 05:00 WBC RBC Hgb Hct MCV MCH MCHC RDW Plt Count Seg Neutrophils % Carbonic Acid HCO3/H2CO3 Ratio ABG pH ABG pCO2 ABG pO2 ABG HCO3 ABG O2 Saturation ABG Base Excess FiO2 Sodium 136.1 L Potassium 5.7 H Chloride 103 Carbon Dioxide 21 L Anion Gap 12 BUN 16 Creatinine 1.29 H Est GFR ( Amer) > 60 Glucose 324 H Lactic Acid 3.1 H Calcium 8.5 Phosphorus 3.8 Magnesium 1.8 Total Bilirubin 3.0 H AST 53 Alkaline Phosphatase 48 Ammonia < 8.7 L Total Protein 5.4 L Albumin 3.2 L Amylase Lipase Blood Type Antibody Screen 12/19/18 12/19/18 12/19/18 05:00 05:00 05:00 WBC 9.9 RBC 3.43 L Hgb 10.2 L Hct 29.4 L MCV 86 MCH 29.8 MCHC 34.8 RDW 14.2 H Plt Count 173 D Seg Neutrophils % 77.3 Carbonic Acid 1.05 HCO3/H2CO3 Ratio 23:1 ABG pH 7.46 H ABG pCO2 34.9 L ABG pO2 67.5 L ABG HCO3 24.3 H ABG O2 Saturation 94.5 ABG Base Excess 1.0 FiO2 21% Sodium 138.3 Potassium 5.0 Chloride 105 Carbon Dioxide 23 Anion Gap 10 BUN 19 Creatinine 1.39 H Est GFR ( Amer) > 60 Glucose 312 H Lactic Acid Calcium 8.4 Phosphorus 3.6 Magnesium 1.8 Total Bilirubin 2.9 H AST 53 Alkaline Phosphatase 49 Ammonia Total Protein 5.1 L Albumin 2.9 L Amylase 73 Lipase 293.1 Blood Type Antibody Screen 12/19/18 05:00 WBC RBC Hgb Hct MCV MCH MCHC RDW Plt Count Seg Neutrophils % Carbonic Acid HCO3/H2CO3 Ratio ABG pH ABG pCO2 ABG pO2 ABG HCO3 ABG O2 Saturation ABG Base Excess FiO2 Sodium Potassium Chloride Carbon Dioxide Anion Gap BUN Creatinine Est GFR ( Amer) Glucose Lactic Acid 1.9 Calcium Phosphorus Magnesium Total Bilirubin AST Alkaline Phosphatase Ammonia Total Protein Albumin Amylase Lipase Blood Type Antibody Screen 12/18/18 22:08 Troponin I 0.059 Impressions: Chest X-Ray 12/18/18 00:00 IMPRESSION: Lines and catheters in place, as above.. Probable tiny bibasilar effusions copyright 2010 [employer]- All Rights Reserved Assessment & Plan - Diagnosis (1) Hemorrhagic shock and encephalopathy syndrome Is this a current diagnosis for this admission?: Yes (2) Post-operative haemorrhage Qualifiers: Surgical complication system/body Area: digestive system Procedure type: digestive system Qualified Code(s): K91.840 - Postprocedural hemorrhage of a digestive system organ or structure following a digestive system procedure Is this a current diagnosis for this admission?: Yes (3) Acute blood loss as cause of postoperative anemia Is this a current diagnosis for this admission?: Yes (4) Pancreatic malignancy syndrome Is this a current diagnosis for this admission?: Yes (5) Cirrhosis of liver Qualifiers: Hepatic cirrhosis type: unspecified hepatic cirrhosis Ascites presence: without ascites Qualified Code(s): K74.60 - Unspecified cirrhosis of liver Is this a current diagnosis for this admission?: Yes (6) Thrombocytopenia due to blood loss Is this a current diagnosis for this admission?: Yes (8) Post-operative state Is this a current diagnosis for this admission?: Yes (9) Encounter for weaning from ventilator Is this a current diagnosis for this admission?: Yes - Time Time Spent with patient: 35 or more minutes Total Critical Time (Minutes): 70 Medications reviewed and adjusted accordingly: Yes Disposition: To remain in ICU - Inpatient Certification Medical Necessity: Significant Comorbidiites Make Outpatient Treatment Too Risky , Need For IV Fluids, Need For Continuous Telemetry Monitoring, Need for Neurological Checks, Need for Pain Control, Risk of Complication if Not Cared For in Hospital Post Hospital Care: D/C [employer] Documentation - Plan Summary Plan Summary: 12.19.18: Patient shows hemodynamic stability after significant hemorrhagic shock. Respiratory: Attempt to start weaning the patient based on his hemodynamic stability and neurologic suitability. We will be vigilant to watch for TRALI. Obtain low tidal volume strategy. Infectious Disease: There are no active infectious disease issues at this time. We will remove the femoral central access use for resuscitation yesterday. We will be vigilant to follow for any infections. Currently quiescent. Cardiac: Patient had dramatic hemodynamic instability yesterday. Became hypotensive and developed shock with relative bradycardia necessitating epinephrine which caused severe hypertension transiently. He had 2 episodes of cardiac arrest requiring chest compressions and ACLS protocol. His EKG is unchanged and his cardiac enzymes were not high. Preoperatively he had an intact ejection fraction and no cardiomyopathy. We will attempt to start diuresing today given the amount of fluid he received for resuscitation. We will attempt to maintain a lower blood pressure to prevent any further bleeding. Patient does have portal hypertension. Lactic acid has cleared Hematologic: Patient received a significant amount of blood products. His indices have improved. Be prudent to watch for infectious and cardiovascular complications as well as transfusion related lung injury sequelae. Hemorrhagic shock state is resolved. Endocrine: Patient has type II insulin requiring diabetes. With a partial pancreatectomy he obviously is essentially a potential functional type I diabetic. His glucose levels have been elevated and we will start patient on active treatment. His neurological state which may be medication related will need to be prudent to protect him from hypoglycemia. Watch for the development of relative adrenal insufficiency after 5 days. Renal: Patient had elevation in his creatinine significant for acute kidney injury postoperatively. This has improved. Will follow during diuresis phase. Will follow for the need for active diuresis however given the fluid shifts that we expect to occur in the next 24 to 48 hours will need to maintain vigilance for appropriate timing. Modify medications for GFR. He is on sterile water with 125 mEq of bicarbonate as a balanced pH solution. Acid-base status is acceptable surprisingly stable. Metabolic: Continue to watch electrolytes and pH throughout this critical time.. Patient does have a jejunostomy tube and will discuss with surgery about the timing for feeding. We will place Mepilex sacral protective padding to prevent skin breakdown. GI: Patient had postoperative hemorrhage that appears to be needed to splanchnic vessel hypertension and bleeding. This has improved. As noted above will speak with surgery about the timing of tube feeding. He does have pancreatic cancer with possible lymph node involvement and significant regional anatomy involvement. We will need to be vigilant to watch for diarrhea, worsening diabetes, Nutritional deficiencies. Watch for coagulopathy, hyperammonemia, ileus. Will control pain with Precedex and limited narcotics. Neurologic: By far the most significant issue is the determination of his neurological status. Will start Precedex and wean propofol to determine a good neurological exam this morning. We will continue to monitor throughout the day. We will watch for elevation in ammonia level secondary to the amount of blood products he received in his cirrhosis. Over time and multiple reexaminations the patient is showing steady improvement. He is following commands attempting to lift his head off the bed and actually trying to speak with the tubing. He was placed on SBT with higher pressure support but had a feeling of insufficient air.
[2018-12-19 17:33] LABS: HEMATOCRIT 29.9 % (37.9-51.0); HEMOGLOBIN 10.1 g/dL (13.5-17.0); MEAN CORPUSCULAR HEMOGLOBIN 28.8 pg (27.0-33.4); MEAN CORPUSCULAR HGB CONC 33.9 g/dL (32.0-36.0); MEAN CORPUSCULAR VOLUME 85 fl (80-97); PLATELET COUNT 152 10^3/uL (150-450); RED BLOOD COUNT 3.52 10^6/uL (4.35-5.55); RED CELL DISTRIBUTION WIDTH 14.8 % (11.5-14.0); WHITE BLOOD COUNT 14.3 10^3/uL (4.0-10.5)
--- NOTE | 2018-12-19 17:40 | RADIOLOGY REPORT (SQ) ---
EXAM DESCRIPTION: CHEST SINGLE VIEW COMPLETED DATE/TIME: 12/19/2018 3:18 pm REASON FOR STUDY: CENTRAL LINE PLACEMENT COMPARISON: 12/19/2018 EXAM PARAMETERS: NUMBER OF VIEWS: One view. TECHNIQUE: Single frontal radiographic view of the chest acquired. RADIATION DOSE: NA LIMITATIONS: None. FINDINGS: LUNGS AND PLEURA: No pneumothorax. Stable appearance. No opacities, masses or pneumotho rax. No pleural effusion. MEDIASTINUM AND HILAR STRUCTURES: Stable appearance. HEART AND VASCULAR STRUCTURES: Stable appearance. BONES: No acute findings. HARDWARE: Endotracheal tube, nasogastric tube and left PICC line are again noted, unchanged. OTHER: No other significant finding. IMPRESSION: 1. No significant interval changes since examination performed earlier on the same date , 12/19/2018. No evidence of pneumothorax. 2. Support tubes and line are unchanged. TECHNICAL DOCUMENTATION: JOB ID: [id number] [employer]- All Rights Reserved Reading location - IP/workstation name: [email or web address]
--- NOTE | 2018-12-19 20:19 | EKG REPORT ---
SEVERITY:- ABNORMAL ECG - SINUS RHYTHM LOW VOLTAGE IN FRONTAL LEADS NONSPECIFIC T ABNORMALITIES, LATERAL LEADS PROLONGED QT INTERVAL : Confirmed by: Yulia Ramos MD 19-Dec-2018 20:18:15
[2018-12-19] MEDS ORDERED: WATER FOR INJECTION,STERILE 1,000 ML with SODIUM BICARBONATE 125 MEQ IV PRN ×2 (20:30)
[2018-12-20] MEDS: METHOCARBAMOL 500 MG in DEXTROSE 5%-WATER 50 ML IV SCH ×4 (00:39→18:28)
[2018-12-20] MEDS: INSULIN LISPRO 100 UNIT/ML 3 ML VIAL SUBCUT SCH ×4 (00:39→18:29)
[2018-12-20] MEDS: DEXMEDETOMIDINE IN 0.9 % NACL 400 MCG/100 ML RTUPB IV PRN ×2 (03:08→07:44)
[2018-12-20] MEDS: METRONIDAZOLE 500 MG/NS RTU 500 MG/100 ML RTUPB IV SCH ×3 (03:09→18:28)
[2018-12-20 04:18] LABS: ABSOLUTE LYMPHOCYTES (AUTO) 2.4 10^3/uL (0.5-4.7); ABSOLUTE MONOCYTES (AUTO) 2.3 10^3/uL (0.1-1.4); ABSOLUTE NEUT (AUTO) 13.8 10^3/uL (1.7-8.2); ARTERIAL BLOOD BASE EXCESS 1.4 mmol/L; ARTERIAL BLOOD HCO3 25.1 mmol/L (20-24); ARTERIAL BLOOD PCO2 36.5 mmHg (35-45); ARTERIAL BLOOD PH 7.46 (7.35-7.45); ARTERIAL BLOOD PO2 61.9 mmHg (80-100); ARTERIAL BLOOD TOTAL CO2 26.3 mmol/L (23-27); BASOPHILS % (AUTO) 0.2 % (0-2); EOSINOPHILS % (AUTO) 0.2 % (0-6); HEMATOCRIT 30.1 % (37.9-51.0); LYMPHOCYTES % (AUTO) 12.7 % (13-45); MEAN CORPUSCULAR HEMOGLOBIN 28.6 pg (27.0-33.4); MEAN CORPUSCULAR HGB CONC 33.2 g/dL (32.0-36.0); MEAN CORPUSCULAR VOLUME 86 fl (80-97); MONOCYTES % (AUTO) 12.5 % (3-13); PLATELET COUNT 138 10^3/uL (150-450); RED CELL DISTRIBUTION WIDTH 14.7 % (11.5-14.0); SEGMENTED NEUTROPHILS % (AUTO) 74.4 % (42-78); TOTAL CELLS COUNTED % (AUTO) 100 %; WHITE BLOOD COUNT 18.6 10^3/uL (4.0-10.5)
[2018-12-20 04:20] LABS: ARTERIAL BLOOD FIO2 21%
[2018-12-20 04:30] LABS: ALBUMIN 2.8 g/dL (3.5-5.0); ALKALINE PHOSPHATASE 52 U/L (38-126); ANION GAP 8 (5-19); ASPARTATE AMINO TRANSFERASE 79 U/L (17-59); BILIRUBIN,DIRECT 1.2 mg/dL (0.0-0.4); BLOOD UREA NITROGEN 31 mg/dL (7-20); CARBON DIOXIDE 26 mmol/L (22-30); CHLORIDE 101 mmol/L (98-107); GLUCOSE 265 mg/dL (75-110); PHOSPHORUS 2.9 mg/dL (2.5-4.5); POTASSIUM 4.1 mmol/L (3.6-5.0); TOTAL PROTEIN 5.4 g/dL (6.3-8.2)
[2018-12-20 04:34] LABS: INTERNATIONAL RATION (INR) 1.18; PROTHROMBIN TIME 15.1 SEC (11.4-15.4)
[2018-12-20 04:35] LABS: PARTIAL THROMBOPLASTIN TIME 30.1 SEC (23.5-35.8)
[2018-12-20] MEDS: CEFAZOLIN SODIUM 1 GM in DEXTROSE 5%-WATER 50 ML IV SCH ×3 (06:12→22:14)
--- NOTE | 2018-12-20 07:32 | PDOC PROGRESS REPORT ---
Subjective Progress Note for:: 12/20/18 Subjective:: intubated, responds with eye opening. Reason For Visit: PANCREATIC CANCER Physical Exam Vital Signs: Temp Pulse Resp BP Pulse Ox 100.0 F 68 18 132/69 H 96 12/19/18 16:00 12/19/18 18:00 12/19/18 18:20 12/19/18 18:00 12/20/18 04:24 Intake & Output 12/19/18 12/20/18 12/21/18 06:59 06:59 06:59 Intake Total 1233 805 Output Total 1575 740 Balance -342 65 Weight 121.5 kg 121.5 kg General appearance: PRESENT: no acute distress Head exam: PRESENT: normocephalic Eye exam: PRESENT: conjunctiva pink Ear exam: PRESENT: normal external ear exam, TM's normal bilaterally Mouth exam: PRESENT: moist, neck supple Neck exam: PRESENT: full ROM Respiratory exam: PRESENT: clear to auscultation roman Cardiovascular exam: PRESENT: RRR Pulses: PRESENT: normal radial pulses, normal femoral pulses GI/Abdominal exam: PRESENT: soft, other - wound dry Gentrourinary exam: PRESENT: indwelling catheter Extremities exam: PRESENT: full ROM Musculoskeletal exam: PRESENT: full ROM Skin exam: PRESENT: dry Results Laboratory Results: 12/20/18 04:02 12/20/18 04:02 12/18/18 12/19/18 12/19/18 09:08 12:00 17:20 WBC 14.3 H RBC 3.52 L Hgb 10.1 L Hct 29.9 L MCV 85 MCH 28.8 MCHC 33.9 RDW 14.8 H Plt Count 152 Seg Neutrophils % Carbonic Acid 1.06 HCO3/H2CO3 Ratio 23:1 ABG pH 7.47 H ABG pCO2 35.1 ABG pO2 66.8 L ABG HCO3 25.0 H ABG O2 Saturation 94.5 ABG Base Excess 1.7 FiO2 21% Sodium Potassium Chloride Carbon Dioxide Anion Gap BUN Creatinine Est GFR ( Amer) Glucose Calcium Phosphorus Magnesium Total Bilirubin AST Alkaline Phosphatase Total Protein Albumin Blood Type O POSITIVE Antibody Screen NEGATIVE 12/20/18 12/20/18 12/20/18 04:02 04:02 04:02 WBC 18.6 H RBC 3.50 L Hgb 10.0 L Hct 30.1 L MCV 86 MCH 28.6 MCHC 33.2 RDW 14.7 H Plt Count 138 L Seg Neutrophils % 74.4 Carbonic Acid 1.10 HCO3/H2CO3 Ratio 22:1 ABG pH 7.46 H ABG pCO2 36.5 ABG pO2 61.9 L ABG HCO3 25.1 H ABG O2 Saturation 93.0 L ABG Base Excess 1.4 FiO2 21% Sodium 134.8 L Potassium 4.1 Chloride 101 Carbon Dioxide 26 Anion Gap 8 BUN 31 H Creatinine 1.79 H Est GFR ( Amer) 46 L Glucose 265 H Calcium 8.0 L Phosphorus 2.9 Magnesium 2.1 Total Bilirubin 2.0 H AST 79 H Alkaline Phosphatase 52 Total Protein 5.4 L Albumin 2.8 L Blood Type Antibody Screen 12/18/18 12/19/18 22:08 12:00 Troponin I 0.059 0.148 Impressions: Chest X-Ray 12/19/18 06:00 IMPRESSION: STABLE APPEARANCE OF THE CHEST. SUPPORT DEVICES UNCHANGED. Assessment & Plan - Time Time Spent with patient: 25-34 minutes - Plan Summary Plan Summary: s/p pancreatectomy for pancreatic cancer takeback for bleed now intubated stable wbc 18k this am h/h stable plan poss extubation today start j-tube feeding. further care per icu.
--- NOTE | 2018-12-20 08:42 | RADIOLOGY REPORT (SQ) ---
EXAM DESCRIPTION: CHEST SINGLE VIEW COMPLETED DATE/TIME: 12/20/2018 8:25 am REASON FOR STUDY: respiratory failure COMPARISON: AP view of the chest from 12/19/2018. EXAM PARAMETERS: NUMBER OF VIEWS: One view. TECHNIQUE: Single frontal radiographic view of the chest acquired. RADIATION DOSE: NA LIMITATIONS: None. FINDINGS: LUNGS AND PLEURA: Probable left retrocardiac opacity. There is no sizable pleural effusio n or pneumothorax. MEDIASTINUM AND HILAR STRUCTURES: Stable mediastinal and hilar contours. HEART AND VASCULAR STRUCTURES: Stable cardiomegaly. BONES: No acute findings. HARDWARE: The tip of the enteric tube projects 6.8 cm above the curt. The tip of the enteric tube projects past the gastroesophageal junction and within the gastric lumen. The position of the left s ubclavian central venous catheter is unchanged. OTHER: No other finding. IMPRESSION: 1. Tubes and lines as above. 2. Unchanged radiographic appearance of the chest with low inspiratory lung volumes, a probable left retrocardiac opacity, and mild cardiomegaly. TECHNICAL DOCUMENTATION: JOB ID: [id number] [employer]- All Rights Reserved Reading location - IP/workstation name: [email or web address]
[2018-12-20] MEDS: FAMOTIDINE INJ/PF 20 MG/2 ML SDV IV SCH (10:42)
[2018-12-20] MEDS: INSULIN GLARGINE,HUM.REC.ANLOG 1,000 UNIT/10 ML VIAL SUBCUT SCH (11:06)
[2018-12-20 12:48] LABS: ARTERIAL BLOOD BASE EXCESS 1.1 mmol/L; ARTERIAL BLOOD H2CO3 1.25 mmol/L (1.05-1.35); ARTERIAL BLOOD HCO3 25.8 mmol/L (20-24); ARTERIAL BLOOD PCO2 41.4 mmHg (35-45); ARTERIAL BLOOD PH 7.41 (7.35-7.45); ARTERIAL BLOOD PO2 61.8 mmHg (80-100); ARTERIAL BLOOD TOTAL CO2 27.1 mmol/L (23-27)
[2018-12-20 12:50] LABS: ARTERIAL BLOOD FIO2 21
[2018-12-20] MEDS: FENTANYL CITRATE INJ/PF 100 MCG/2 ML AMPUL IV PRN ×2 (13:31→23:01)
--- NOTE | 2018-12-20 16:05 | PDOC PROGRESS REPORT ---
Subjective Progress Note for:: 12/20/18 Subjective:: 12.20.18: Patient has had no further bleeding events. He is actually neurologically improving significantly. He was unable to be weaned secondary to hypoxia yesterday. This has improved. It has been weaning all morning and ABG on 21% oxygen shows an acceptable PO2. He needs parameters for the ability to liberate including lifting his head following commands no excess secretions and acceptable minute ventilation. He was successfully extubated after rounds. Had minimal output from his KARIN drains. He has had no hemodynamic instability. 12.19.18: Despite the significant events 12/18/2018 patient's condition has stabilized. He has had no further hypotension. Excessive bleeding or output from KARIN tubes. Does note minimal spots to stimulus however he has been requiring higher dose of propofol to maintain a lower blood pressure to prevent further bleeding. Is not bleeding from any other sites and has had no episodes of shock. His lactic acid is cleared as well. Has had a slight increase in his creatinine but not significant. I's and O's were evaluated. His PO2 is lower this morning however chest x-ray is unremarkable. ECG shows lateral T wave inversion but no depression. These are new. Done during SBT. Troponin shows s light (< 0.5 elevation). No hemodynamic instability. No arrhythmias. Reason For Visit: PANCREATIC CANCER Physical Exam Vital Signs: Temp Pulse Resp BP Pulse Ox 100.0 F 68 18 132/69 H 96 12/19/18 16:00 12/19/18 18:00 12/19/18 18:20 12/19/18 18:00 12/20/18 04:24 Intake & Output 12/19/18 12/20/18 12/21/18 06:59 06:59 06:59 Intake Total 1233 805 Output Total 1575 740 Balance -342 65 Weight 121.5 kg 121.5 kg Physical Exam: Evaluated before and after extubation. Developed well-nourished nontoxic ill 68-year-old male who is responsive no active distress. General appearance: PRESENT: no acute distress, cooperative, obese Head exam: PRESENT: normocephalic Eye exam: PRESENT: conjunctiva pink, EOMI, PERRLA. ABSENT: conjunctival injection, nystagmus, scleral icterus Mouth exam: PRESENT: dry mucosa, neck supple Teeth exam: PRESENT: poor dentation Neck exam: ABSENT: carotid bruit, JVD, lymphadenopathy, thyromegaly, tracheal deviation Respiratory exam: PRESENT: unlabored. ABSENT: accessory muscle use, crackles, rhonchi, wheezes Cardiovascular exam: PRESENT: RRR, +S1, +S2. ABSENT: rubs, systolic murmur, tachycardia Pulses: PRESENT: +2 pedal pulses bilateral Vascular exam: PRESENT: normal capillary refill GI/Abdominal exam: PRESENT: diminished bowel sounds, firm, hypoactive bowel sounds, tenderness. ABSENT: ascites, distended, guarding, rebound, rigid Rectal exam: PRESENT: deferred Gentrourinary exam: PRESENT: indwelling catheter Extremities exam: PRESENT: pedal edema Musculoskeletal exam: PRESENT: normal inspection. ABSENT: deformity, dislo cation Neurological exam: PRESENT: awake, oriented to person, oriented to place, CN II- XII grossly intact. ABSENT: motor sensory deficit Psychiatric exam: PRESENT: appropriate affect. ABSENT: agitated Focused psych exam: ABSENT: psychomotor agitation, restlessness Skin exam: PRESENT: dry, intact, normal color. ABSENT: erythema, jaundice, mottled, pallor, petechiae, urticaria, vesicles Results Laboratory Results: 12/20/18 04:02 12/20/18 04:02 12/18/18 12/19/18 12/19/18 09:08 12:00 17:20 WBC 14.3 H RBC 3.52 L Hgb 10.1 L Hct 29.9 L MCV 85 MCH 28.8 MCHC 33.9 RDW 14.8 H Plt Count 152 Seg Neutrophils % Carbonic Acid 1.06 HCO3/H2CO3 Ratio 23:1 ABG pH 7.47 H ABG pCO2 35.1 ABG pO2 66.8 L ABG HCO3 25.0 H ABG O2 Saturation 94.5 ABG Base Excess 1.7 FiO2 21% Sodium Potassium Chloride Carbon Dioxide Anion Gap BUN Creatinine Est GFR ( Amer) Glucose Calcium Phosphorus Magnesium Total Bilirubin AST Alkaline Phosphatase Total Protein Albumin Blood Type O POSITIVE Antibody Screen NEGATIVE 12/20/18 12/20/18 12/20/18 04:02 04:02 04:02 WBC 18.6 H RBC 3.50 L Hgb 10.0 L Hct 30.1 L MCV 86 MCH 28.6 MCHC 33.2 RDW 14.7 H Plt Count 138 L Seg Neutrophils % 74.4 Carbonic Acid 1.10 HCO3/H2CO3 Ratio 22:1 ABG pH 7.46 H ABG pCO2 36.5 ABG pO2 61.9 L ABG HCO3 25.1 H ABG O2 Saturation 93.0 L ABG Base Excess 1.4 FiO2 21% Sodium 134.8 L Potassium 4.1 Chloride 101 Carbon Dioxide 26 Anion Gap 8 BUN 31 H Creatinine 1.79 H Est GFR ( Amer) 46 L Glucose 265 H Calcium 8.0 L Phosphorus 2.9 Magnesium 2.1 Total Bilirubin 2.0 H AST 79 H Alkaline Phosphatase 52 Total Protein 5.4 L Albumin 2.8 L Blood Type Antibody Screen 12/18/18 12/19/18 22:08 12:00 Troponin I 0.059 0.148 Impressions: Chest X-Ray 12/19/18 06:00 IMPRESSION: STABLE APPEARANCE OF THE CHEST. SUPPORT DEVICES UNCHANGED. Status: Image reviewed by me Assessment & Plan - Diagnosis (1) Hemorrhagic shock and encephalopathy syndrome Is this a current diagnosis for this admission?: Yes (2) Post-operative haemorrhage Qualifiers: Surgical complication system/body Area: digestive system Procedure type: digestive system Qualified Code(s): K91.840 - Postprocedural hemorrhage of a digestive system organ or structure following a digestive system procedure Is this a current diagnosis for this admission?: Yes (3) Acute blood loss as cause of postoperative anemia Is this a current diagnosis for this admission?: Yes (4) Pancreatic malignancy syndrome Is this a current diagnosis for this admission?: Yes (5) Cirrhosis of liver Qualifiers: Hepatic cirrhosis type: unspecified hepatic cirrhosis Ascites presence: without ascites Qualified Code(s): K74.60 - Unspecified cirrhosis of liver Is this a current diagnosis for this admission?: Yes (6) Thrombocytopenia due to blood loss Is this a current diagnosis for this admission?: Yes (8) Post-operative state Is this a current diagnosis for this admission?: Yes (9) Encounter for weaning from ventilator Is this a current diagnosis for this admission?: Yes - Time Time Spent with patient: 35 or more minutes Total Critical Time (Minutes): 65 Level of Care: ICU Medications reviewed and adjusted accordingly: Yes Disposition: Remain in ICU - Inpatient Certification Based on my medical assessment, after consideration of the patient's comorbidities, presenting symptoms, or acuity I expect that the services needed warrant INPATIENT care.: Yes I certify that my determination is in accordance with my understanding of [employer]'s requirements for reasonable and necessary INPATIENT services [42 CFR 412.3e].: Yes Medical Necessity: Significant Comorbidiites Make Outpatient Treatment Too Risky, Need For IV Fluids, Need For Continuous Telemetry Monitoring, Need for Neurological Checks, Need for Pain Control, Risk of Complication if Not Cared For in Hospital - Plan Summary Plan Summary: 12.20.18: Patient has shown remarkable improvement and was successfully liberated. Multiple examinations were done after to assure safety. We do not have high flow nasal cannula availability today so I have transitioned him to a facemask for now. Will be prudent to watch for respiratory issues. Given that the patient has obstructive sleep apnea will use bi-PAP while he is sleeping. Surgery will start nutrition today via his J-tube. Will discuss about the use of subcutaneous heparin. Patient is at increased risk for VTE given his malignancy and the concurrent use of thrombotic agents to control his bleeding. Have ordered physical therapy. We will continue supportive care follow his response to tube feedings. I also discussed with anesthesiology and his epidural has been removed. Will need oncological follow-up. Talk with surgery about discontinue antibiotics. His white blood cell count is elevated but this may be a leukemoid reaction in response to the events which transpired more than 24 hours ago. Patient had a small elevation in his troponin probably related to demand. Awaiting today's EKG for comparison. 12.19.18: Patient shows hemodynamic stability after significant hemorrhagic shock. Respiratory: Attempt to start weaning the patient based on his hemodynamic stability and neurologic suitability. We will be vigilant to watch for TRALI. Obtain low tidal volume strategy. Infectious Disease: There are no active infectious disease issues at this time. We will remove the femoral central access use for resuscitation yesterday. We will be vigilant to follow for any infections. Currently quiescent. Cardiac: Patient had dramatic hemodynamic instability yesterday. Became hypotensive and developed shock with relative bradycardia necessitating epinephrine which caused severe hypertension transiently. He had 2 episodes of cardiac arrest requiring chest compressions and ACLS protocol. His EKG is unchanged and his cardiac enzymes were not high. Preoperatively he had an intact ejection fraction and no cardiomyopathy. We will attempt to start diuresing today given the amount of fluid he received for resuscitation. We will attempt to maintain a lower blood pressure to prevent any further bleeding. Patient does have portal hypertension. Lactic acid has cleared Hematologic: Patient received a significant amount of blood products. His indices have improved. Be prudent to watch for infectious and cardiovascular complications as well as transfusion related lung injury sequelae. Hemorrhagic shock state is resolved. Endocrine: Patient has type II insulin requiring diabetes. With a partial pancreatectomy he obviously is essentially a potential functional type I diabetic. His glucose levels have been elevated and we will start patient on active treatment. His neurological state which may be medication related will need to be prudent to protect him from hypoglycemia. Watch for the development of relative adrenal insufficiency after 5 days. Renal: Patient had elevation in his creatinine significant for acute kidney injury postoperatively. This has improved. Will follow during diuresis phase. Will follow for the need for active diuresis however given the fluid shifts that we expect to occur in the next 24 to 48 hours will need to maintain vigilance for appropriate timing. Modify medications for GFR. He is on sterile water with 125 mEq of bicarbonate as a balanced pH solution. Acid-base status is acceptable surprisingly stable. Metabolic: Continue to watch electrolytes and pH throughout this critical time.. Patient does have a jejunostomy tube and will discuss with surgery about the timing for feeding. We will place Mepilex sacral protective padding to prevent skin breakdown. GI: Patient had postoperative hemorrhage that appears to be needed to splanchnic vessel hypertension and bleeding. This has improved. As noted above will speak with surgery about the timing of tube feeding. He does have pancreatic cancer with possible lymph node involvement and significant regional anatomy involvement. We will need to be vigilant to watch for diarrhea, worsening diabetes, Nutritional deficiencies. Watch for coagulopathy, hyperammonemia, ileus. Will control pain with Precedex and limited narcotics. Neurologic: By far the most significant issue is the determination of his neurological status. Will start Precedex and wean propofol to determine a good neurological exam this morning. We will continue to monitor throughout the day. We will watch for elevation in ammonia level secondary to the amount of blood products he received in his cirrhosis. Over time and multiple reexaminations the patient is showing steady improvement. He is following commands attempting to lift his head off the bed and actually trying to speak with the tubing. He was placed on SBT with higher pressure support but had a feeling of insufficient air. Patient seen in multidisciplinary rounds. Care of in ICU patient is ongoing and dynamic. This note represents a static representation of ongoing care in the last 24 hours. Was given completed and entered via computer are not always reflective of actual time done. Medical power of estate planning attorney is: Mother Patient requires ICU care secondary to respiratory failure, hemorrhagic shock.
[2018-12-20 17:09] LABS: HEMATOCRIT 29.1 % (37.9-51.0); HEMOGLOBIN 9.8 g/dL (13.5-17.0); MEAN CORPUSCULAR HEMOGLOBIN 28.8 pg (27.0-33.4); MEAN CORPUSCULAR HGB CONC 33.5 g/dL (32.0-36.0); MEAN CORPUSCULAR VOLUME 86 fl (80-97); PLATELET COUNT 114 10^3/uL (150-450); RED BLOOD COUNT 3.38 10^6/uL (4.35-5.55); RED CELL DISTRIBUTION WIDTH 14.7 % (11.5-14.0); WHITE BLOOD COUNT 21.1 10^3/uL (4.0-10.5)
--- NOTE | 2018-12-20 19:12 | EKG REPORT ---
SEVERITY:- ABNORMAL ECG - SINUS RHYTHM LEFT AXIS DEVIATION NONSPECIFIC T ABNORMALITIES, DIFFUSE LEADS : Confirmed by: Yulia Ramos MD 20-Dec-2018 19:11:57
[2018-12-20] MEDS: HEPARIN SOD (PORCINE) 5,000 UNIT/ML 1 ML VIAL SUBCUT SCH (22:15)
[2018-12-21] MEDS: INSULIN LISPRO 100 UNIT/ML 3 ML VIAL SUBCUT SCH ×5 (00:59→23:58)
[2018-12-21] MEDS: METHOCARBAMOL 500 MG in DEXTROSE 5%-WATER 50 ML IV SCH ×5 (01:03→23:58)
[2018-12-21] MEDS: METRONIDAZOLE 500 MG/NS RTU 500 MG/100 ML RTUPB IV SCH ×3 (01:03→17:00)
[2018-12-21] MEDS: FENTANYL CITRATE INJ/PF 100 MCG/2 ML AMPUL IV PRN ×7 (02:34→18:05)
[2018-12-21] MEDS: CEFAZOLIN SODIUM 1 GM in DEXTROSE 5%-WATER 50 ML IV SCH ×3 (05:45→21:34)
[2018-12-21] MEDS: HEPARIN SOD (PORCINE) 5,000 UNIT/ML 1 ML VIAL SUBCUT SCH ×3 (05:46→21:35)
[2018-12-21 06:50] LABS: ALBUMIN 2.5 g/dL (3.5-5.0); ALKALINE PHOSPHATASE 56 U/L (38-126); ANION GAP 7 (5-19); ASPARTATE AMINO TRANSFERASE 49 U/L (17-59); BILIRUBIN,DIRECT 1.9 mg/dL (0.0-0.4); BILIRUBIN,TOTAL 2.4 mg/dL (0.2-1.3); BLOOD UREA NITROGEN 31 mg/dL (7-20); CALCIUM 7.5 mg/dL (8.4-10.2); CARBON DIOXIDE 29 mmol/L (22-30); CHLORIDE 102 mmol/L (98-107); GLUCOSE 199 mg/dL (75-110)
--- NOTE | 2018-12-21 07:16 | PDOC PROGRESS REPORT ---
Subjective Progress Note for:: 12/21/18 Subjective:: Patient complains of a clogged Yankauer suction device. Reason For Visit: PANCREATIC CANCER Physical Exam Vital Signs: Temp Pulse Resp BP Pulse Ox 100.0 F 68 20 121/74 98 12/21/18 06:00 12/20/18 20:00 12/21/18 06:00 12/21/18 05:46 12/21/18 06:00 Intake & Output 12/20/18 12/21/18 12/22/18 06:59 06:59 06:59 Intake Total 955 598 Output Total 1055 1405 Balance -100 -807 Weight 120.9 kg 123.5 kg General appearance: PRESENT: no acute distress, cooperative, well-developed, well-nourished Head exam: PRESENT: atraumatic, normocephalic Eye exam: PRESENT: conjunctiva pink, EOMI, PERRLA. ABSENT: scleral icterus Ear exam: PRESENT: normal external ear exam Mouth exam: PRESENT: moist, tongue midline Respiratory exam: PRESENT: decreased breath sounds, rhonchi, unlabored Cardiovascular exam: PRESENT: RRR. ABSENT: diastolic murmur, rubs, systolic murmur Vascular exam: PRESENT: normal capillary refill GI/Abdominal exam: PRESENT: diminished bowel sounds, hypoactive bowel sounds, soft Additonal comments: Abdominal wound dressed but not tense. Rectal exam: PRESENT: deferred Gentrourinary exam: PRESENT: indwelling catheter Extremities exam: PRESENT: full ROM Musculoskeletal exam: PRESENT: normal inspection Neurological exam: PRESENT: alert, oriented to person, oriented to place, oriented to situation Psychiatric exam: PRESENT: appropriate affect, normal mood. ABSENT: homicidal ideation, suicidal ideation Additional comments: Vitiligo on all extremities, trunk and neck Results Laboratory Results: 12/20/18 16:54 12/21/18 05:57 12/20/18 12/20/18 12/21/18 12:30 16:54 05:57 WBC 21.1 H RBC 3.38 L Hgb 9.8 L Hct 29.1 L MCV 86 MCH 28.8 MCHC 33.5 RDW 14.7 H Plt Count 114 L Carbonic Acid 1.25 HCO3/H2CO3 Ratio 20:1 ABG pH 7.41 ABG pCO2 41.4 ABG pO2 61.8 L ABG HCO3 25.8 H ABG O2 Saturation 92.0 L ABG Base Excess 1.1 FiO2 21 Sodium 137.9 Potassium 4.0 Chloride 102 Carbon Dioxide 29 Anion Gap 7 BUN 31 H Creatinine 1.44 H Est GFR ( Amer) 59 L Glucose 199 H Lactic Acid Calcium 7.5 L Phosphorus 3.0 Magnesium 2.2 Total Bilirubin 2.4 H AST 49 Alkaline Phosphatase 56 Total Protein 5.0 L Albumin 2.5 L 12/21/18 05:57 WBC RBC Hgb Hct MCV MCH MCHC RDW Plt Count Carbonic Acid HCO3/H2CO3 Ratio ABG pH ABG pCO2 ABG pO2 ABG HCO3 ABG O2 Saturation ABG Base Excess FiO2 Sodium Potassium Chloride Carbon Dioxide Anion Gap BUN Creatinine Est GFR ( Amer) Glucose Lactic Acid 0.9 Calcium Phosphorus Magnesium Total Bilirubin AST Alkaline Phosphatase Total Protein Albumin 12/18/18 12/19/18 12/20/18 22:08 12:00 11:10 Troponin I 0.059 0.148 0.038 Assessment & Plan - Diagnosis (1) Pancreatic malignancy syndrome Is this a current diagnosis for this admission?: Yes Plan: He has been debulked condition is not curable due to presumed lymph node spread. No signs of biliary obstruction. (2) Post-operative haemorrhage Qualifiers: Surgical complication system/body Area: digestive system Procedure type: digestive system Qualified Code(s): K91.840 - Postprocedural hemorrhage of a digestive system organ or structure following a digestive system procedure Is this a current diagnosis for this admission?: Yes Plan: Resolved (3) Leukocytosis Qualifiers: Leukocytosis type: bandemia Qualified Code(s): D72.825 - Bandemia Is this a current diagnosis for this admission?: Yes Plan: No sign of infection, this could be jus demargination from his bleed and arrest but is concerning, will respeat. - Time Time Spent with patient: 35 or more minutes Total Critical Time (Minutes): 35 Level of Care: ICU Medications reviewed and adjusted accordingly: Yes Anticipated discharge: Home Within: Other - Inpatient Certification Based on my medical assessment, after consideration of the patient's comorbidities, presenting symptoms, or acuity I expect that the services needed warrant INPATIENT care.: Yes I certify that my determination is in accordance with my understanding of Medicare's requirements for reasonable and necessary INPATIENT services [42 CFR 412.3e].: Yes Medical Necessity: Failure to Improve With Outpatient Therapy, Significant Comorbidiites Make Outpatient Treatment Too Risky, Need Close Monitoring Due to Risk of Patient Decompensation, Need For IV Fluids, Need For Continuous Telemetry Monitoring, Need for Nebulizer Therapy and Monitoring of Response
--- NOTE | 2018-12-21 08:29 | PDOC PROGRESS REPORT ---
Subjective Progress Note for:: 12/21/18 Subjective:: awake, responds appropriately moves all four ext. some abd pain Reason For Visit: PANCREATIC CANCER Physical Exam Vital Signs: Temp Pulse Resp BP Pulse Ox 100.0 F 68 20 121/74 98 12/21/18 06:00 12/20/18 20:00 12/21/18 06:00 12/21/18 05:46 12/21/18 06:00 Intake & Output 12/20/18 12/21/18 12/22/18 06:59 06:59 06:59 Intake Total 955 598 Output Total 1055 1405 Balance -100 -807 Weight 120.9 kg 123.5 kg General appearance: PRESENT: no acute distress Head exam: PRESENT: normocephalic Eye exam: PRESENT: EOMI Mouth exam: PRESENT: dry mucosa Neck exam: PRESENT: full ROM Respiratory exam: PRESENT: clear to auscultation roman Cardiovascular exam: PRESENT: RRR Pulses: PRESENT: normal radial pulses, normal femoral pulses GI/Abdominal exam: PRESENT: distended Rectal exam: PRESENT: deferred Gentrourinary exam: PRESENT: indwelling catheter Extremities exam: PRESENT: full ROM Musculoskeletal exam: PRESENT: full ROM Neurological exam: PRESENT: alert, altered, awake, oriented to person, oriented to place, oriented to time, oriented to situation Psychiatric exam: PRESENT: appropriate affect Skin exam: PRESENT: dry Results Laboratory Results: 12/20/18 16:54 12/21/18 05:57 12/20/18 12/20/18 12/21/18 12:30 16:54 05:57 WBC 21.1 H RBC 3.38 L Hgb 9.8 L Hct 29.1 L MCV 86 MCH 28.8 MCHC 33.5 RDW 14.7 H Plt Count 114 L Carbonic Acid 1.25 HCO3/H2CO3 Ratio 20:1 ABG pH 7.41 ABG pCO2 41.4 ABG pO2 61.8 L ABG HCO3 25.8 H ABG O2 Saturation 92.0 L ABG Base Excess 1.1 FiO2 21 Sodium 137.9 Potassium 4.0 Chloride 102 Carbon Dioxide 29 Anion Gap 7 BUN 31 H Creatinine 1.44 H Est GFR ( Amer) 59 L Glucose 199 H Lactic Acid Calcium 7.5 L Phosphorus 3.0 Magnesium 2.2 Total Bilirubin 2.4 H AST 49 Alkaline Phosphatase 56 Ammonia Total Protein 5.0 L Albumin 2.5 L 12/21/18 12/21/18 05:57 06:20 WBC RBC Hgb Hct MCV MCH MCHC RDW Plt Count Carbonic Acid HCO3/H2CO3 Ratio ABG pH ABG pCO2 ABG pO2 ABG HCO3 ABG O2 Saturation ABG Base Excess FiO2 Sodium Potassium Chloride Carbon Dioxide Anion Gap BUN Creatinine Est GFR ( Amer) Glucose Lactic Acid 0.9 Calcium Phosphorus Magnesium Total Bilirubin AST Alkaline Phosphatase Ammonia < 8.7 L Total Protein Albumin 12/18/18 12/19/18 12/20/18 22:08 12:00 11:10 Troponin I 0.059 0.148 0.038 Assessment & Plan - Time Time Spent with patient: 25-34 minutes - Plan Summary Plan Summary: pt remains stable h/h stable am labs pending now extubated plan cont ancef/flagyl monitor labs ice chips today up to chair today.
--- NOTE | 2018-12-21 08:57 | RADIOLOGY REPORT (SQ) ---
EXAM DESCRIPTION: CHEST SINGLE VIEW COMPLETED DATE/TIME: 12/21/2018 6:26 am REASON FOR STUDY: atelectasis COMPARISON: 12/20/2018 EXAM PARAMETERS: NUMBER OF VIEWS: One view. TECHNIQUE: Single frontal radiographic view of the chest acquired. RADIATION DOSE: NA LIMITATIONS: None. FINDINGS: LUNGS AND PLEURA: Persistent low lung volumes. Left retrocardiac opacity. No improvement . MEDIASTINUM AND HILAR STRUCTURES: No masses. Contour normal. HEART AND VASCULAR STRUCTURES: Heart enlarged without failure. BONES: No acute findings. HARDWARE: ETT has been removed. NG tube in place. Venous access catheter unchanged in position. Ti p proximal to the SVC OTHER: No other significant finding. IMPRESSION: Stable appearance of the lungs. TECHNICAL DOCUMENTATION: JOB ID: [id number] [employer]- All Rights Reserved Reading location - IP/workstation name: [email or web address]
[2018-12-21] MEDS: INSULIN GLARGINE,HUM.REC.ANLOG 1,000 UNIT/10 ML VIAL SUBCUT SCH (10:03)
--- NOTE | 2018-12-21 14:28 | PDOC CONSULTATION ---
Consultation-Blank Consultation: CARDIOLOGY CONSULTATION by Dr. Yulia Ramos on 12/21/2018. Patient seen at 1 PM on 12/21/2018. REASON FOR CONSULTATION: Patient with postoperative non-ST elevation IL. CONSULT REQUESTING PHYSICIAN: Dr. Dumont, independent crop consultant HISTORY PRESENT ILLNESS: Note chart reviewed. Past Medical History: Patient has a past medical history of coronary artery disease with an LAD stent in 2012 EF of 50 to 55% cardiogram done November showing EF of 65% history of IL, hypertension, dyslipidemia, mitral regurgitation, tricuspid regurgitation ,obstructive sleep apnea, CKD stage III arthritis, anxiety, syncope, PTSD, type 2 diabetes insulin requiring. Cardiac Medical History: Reports: Hyperlipidema, Hypertension. Denies: Atrial Fibrillation, Congestive Heart Failure , Pulmonary Embolism, Heart Murmur. Pulmonary Medical History: Reports: Sleep Apnea ,Denies: Asthma, Bronchitis, Chronic Obstructive Pulmonary Disease (COPD), Pneumonia, Respiratory Failure, Tuberculosis Neurological Medical History: No history of TIA CVA .Denies: Seizures Endocrine Medical History: Reports: Diabetes Mellitus Type 2 .Denies: Hyperthyroidism, Hypothyroidism Renal/ Medical History: Denies: End Stage Renal Disease. No history of chronic kidney disease Malignancy Medical History: Reports: Pancreatic Cancer.Denies: Leukemia, Lung Cancer Malignancy History Note: Pancreatic cancer new diagnosis GI Medical History: Reports: Cirrhosis - Noted in operating room Denies: Crohn's Disease, Gastroesophageal Reflux Disease, Hiatal Hernia Musculoskeltal Medical History: Reports: Arthritis.no history of collagen vascular disease. Denies: Fibromyalgia Psychiatric Medical History: Reports: Depression - Anxiety, Post Traumatic Stress Disorder.Denies: Bipolar Disorder, Dementia Hematology: Denies: Anemia, Hemophilia, Sickle Cell Disease Infectious Medical History: .Denies: HIV. No history of rheumatic fever. Past Surgical History Past Surgical History this admission: Exploratory laparotomy with partial pancreatectomy reexploration on this admission Past Surgical History: Reports: Herniorrhaphy - Bilateral Inguinal/Femoral, Orthopedic Surgery - right knee.Denies: Appendectomy, Cholecystectomy, Colostomy, Coronary Artery Bypass Graft, Gastric Bypass Surgery, Pacemaker, Tonsillectomy Social/Family History Social History Lives with: Family, Spouse/Significant other Smoking Status: Former Smoker Frequency of Alcohol Use: Social Hx Recreational Drug Use: No Drugs: None Hx Prescription Drug Abuse: No. RESUSCITATION STATUS: Patient is a full code. His is a surrogate healthcare decision maker Medication/Allergies Home Medications: Carvedilol [Coreg 25 mg Tablet] 25 mg PO Q12 01/25/18 Furosemide [Lasix 20 mg Tablet] 60 mg PO DAILY 01/25/18 Insulin Glargine,Hum.rec.anlog [Lantus Insulin 100 Unit/mL Insulin Pen] 90 units SQ QHS 01/25/18 Losartan Potassium [Cozaar 100 mg Tablet] 100 mg PO DAILY 01/25/18 Atorvastatin Calcium [Lipitor 20 mg Tablet] 20 mg PO QHS 11/10/18 Citalopram Hydrobromide [Celexa] 40 mg PO DAILY 11/10/18 Insulin Aspart [Novolog] 15 unit SQ ACSUPPER 11/10/18 Potassium Chloride [Klor-Con M20] 20 meq PO DAILY 11/10/18 Amlodipine Besylate [Norvasc 10 mg Tablet] 10 mg PO DAILY 12/18/18 Aspirin [Ecotrin 81 mg EC Tablet] 81 mg PO DAILY 12/18/18 Oxycodone HCl 15 mg PO Q8HP PRN 12/18/18 Oxycodone HCl 20 mg PO Q12 12/18/18 Allergies/Adverse Reactions: hydrocodone: Causes hives. Morphine: Causes hives Penicillins: Causes Hives, SOB Review of Systems: Current Medications Dextrose (Dextrose Inj 50% Syringe (25 Gm/50 Ml)) 25 gm IV PRN PRN; Protocol PRN Reason: PER PROTOCOL Stop: 01/17/19 16:23 Dextrose (Dextrose Inj 50% Syringe (25 Gm/50 Ml)) 12.5 gm IV PRN PRN; Protocol PRN Reason: FOR BG 50-69 IN ALERT PATIENT Stop: 01/17/19 16:59 Fentanyl Citrate (Sublimaze Inj/Pf 100 Mcg/2 Ml Ampule) 50 mcg IV Q4HP PRN PRN Reason: FOR PAIN SCALE 2-3 Stop: 12/25/18 16:31 Last Admin: 12/21/18 09:58 Dose: 50 mcg Documented by: Fentanyl Citrate (Sublimaze Inj/Pf 100 Mcg/2 Ml Ampule) 100 mcg IV Q3HP PRN PRN Reason: PAIN SCALE OF 5 Stop: 12/28/18 13:35 Glucagon (Glucagen Inj 1 Mg Vial) 1 mg IM PRN PRN; Protocol PRN Reason: Evaluate for BG < 70 Stop: 01/17/19 16:23 Glucagon (Glucagen Inj 1 Mg Vial) 1 mg SUBCUT PRN PRN; Protocol PRN Reason: Evaluate for BG < 70 Stop: 01/17/19 16:19 Glucose (Glutose 40% Gel 15 Gm Tube) 15 gm PO PRN PRN; Protocol PRN Reason: FOR BG 50-69 IN ALERT PATIENT Stop: 01/17/19 16:23 Glucose (Glutose 40% Gel 15 Gm Tube) 30 gm PO PRN PRN; Protocol PRN Reason: FOR BG < 50 IN ALERT PATIENT Stop: 01/17/19 16:23 Heparin Sodium (Porcine) (Heparin Inj 5,000 Units/Ml 1 Ml Vial) 5,000 unit SUBCUT Q8 [facility] Stop: 01/19/19 21:59 Last Admin: 12/21/18 05:46 Dose: 5,000 unit Documented by: Metronidazole (Flagyl Rtu 500 Mg/Ns 100ml Premix) 500 mg in 100 mls @ 100 mls/hr IV Q8A [facility] Stop: 12/25/18 17:59 Last Infusion: 12/21/18 11:02 Dose: Infused Documented by: Cefazolin Sodium 1 gm/ (Dextrose) 50 mls @ 100 mls/hr IV Q8 [facility] Stop: 12/25/18 21:59 Last Admin: 12/21/18 14:21 Dose: 100 mls/hr, 100 mls/hr Documented by: Methocarbamol 500 mg/ Dextrose 50 mls @ 50 mls/hr IV Q6 [facility] Stop: 12/22/18 11:59 Last Admin: 12/21/18 11:43 Dose: 50 mls/hr Documented by: Sodium Chloride (Nacl 0.9% 1000 Ml Iv Soln) 1,000 mls @ 50 mls/hr IV CONTINUOUS PRN PRN Reason: THIS MED IS NOT "PRN" Stop: 01/20/19 08:17 Insulin Glargine (Lantus Insulin 100 Unit/1 Ml 10 Ml) 20 unit SUBCUT DAILY [facility] Stop: 01/19/19 09:59 Last Admin: 12/21/18 10:03 Dose: 20 unit Documented by: Insulin Human Lispro (Humalog Insulin 100 Unit/1 Ml 3 Ml Vial) 0 - 12 unit SUBCUT Q6 [facility]; Protocol Stop: 01/17/19 17:59 Last Admin: 12/21/18 11:42 Dose: 2 unit Documented by: Sodium Chloride (Saline Flush 2.5 Ml Monoject Prefil Syrin) 2.5 ml IV Q8 [facility] Stop: 01/18/19 08:29 Last Admin: 12/21/18 05:47 Dose: 2.5 ml Documented by: Discontinued Medications Bupivacaine HCl (Sensorcaine-Mpf 0.25% Inj 30 Ml Sdv) Confirm Administered Dose 30 ml .ROUTE .STK-MED ONE Stop: 12/18/18 08:31 Calcium Gluconate (Calcium Gluconate Inj 1000 Mg/10 Ml) Confirm Administered Dose 1,000 mg IV .STK-MED ONE Stop: 12/18/18 17:54 Last Admin: 12/18/18 18:00 Dose: 1,000 mg Documented by: Calcium Gluconate (Calcium Gluconate Inj 1000 Mg/10 Ml) Confirm Administered Dose 1,000 mg IV .STK-MED ONE Stop: 12/18/18 18:59 Cefazolin Sodium (Ancef Inj 1 Gm Vial) Confirm Administered Dose 1 gm .ROUTE .STK-MED ONE Stop: 12/18/18 09:26 Last Admin: 12/18/18 20:17 Dose: Not Given Documented by: Cefazolin Sodium (Ancef Inj 1 Gm Vial) Confirm Administered Dose 1 gm .ROUTE .STK-MED ONE Stop: 12/18/18 14:23 Dexamethasone Sodium Phosphate (Decadron Inj 4 Mg/Ml Vial) 4 mg .ROUTE .STK-MED ONE Stop: 12/18/18 10:28 Dextrose (Dextrose Inj 50% Syringe (25 Gm/50 Ml)) 12.5 gm IV PRN PRN; Protocol PRN Reason: FOR BG 50-69 IN ALERT PATIENT Stop: 01/17/19 16:23 Dextrose (Dextrose Inj 50% Syringe (25 Gm/50 Ml)) 25 gm IV PRN PRN; Protocol PRN Reason: See Label Comments Stop: 01/17/19 16:19 Diphenhydramine HCl (Benadryl Inj 50 Mg/1 Ml Vial) 12.5 mg IV .WHILE IN PACU PRN PRN Reason: ITCHING Stop: 12/18/18 15:02 Epinephrine HCl (Epinephrine-Pf Inj 1 Mg/Ml (1:1000) Ampule) Confirm Administered Dose 1 mg .ROUTE .STK-MED ONE Stop: 12/18/18 17:14 Last Admin: 12/18/18 20:16 Dose: Not Given Documented by: Epinephrine HCl (Epinephrine Inj 1 Mg/10 Ml Disp.Syrin) Confirm Administered Dose 1 mg .ROUTE .STK-MED ONE Stop: 12/18/18 17:15 Last Admin: 12/18/18 17:15 Dose: 0.5 mg Documented by: Epinephrine HCl (Epinephrine Inj 1 Mg/10 Ml Disp.Syrin) 4 mg .ROUTE .STK-MED ONE Stop: 12/18/18 09:54 Famotidine (Pepcid Inj/Pf 20 Mg/2 Ml Sdv) 20 mg IV Q12 [facility] Stop: 01/17/19 21:59 Last Admin: 12/20/18 10:42 Dose: 20 mg Documented by: Fentanyl Citrate (Sublimaze Inj/Pf 100 Mcg/2 Ml Ampule) 50 mcg IV .X1 PRN PRN Reason: FOR PAIN Stop: 12/18/18 23:59 Fentanyl Citrate (Sublimaze Inj/Pf 100 Mcg/2 Ml Ampule) Confirm Administered Dose 100 mcg .ROUTE .STK-MED ONE Stop: 12/18/18 08:46 Fentanyl Citrate (Sublimaze Inj/Pf 100 Mcg/2 Ml Ampule) Confirm Administered Dose 100 mcg .ROUTE .STK-MED ONE Stop: 12/18/18 09:35 Last Admin: 12/18/18 08:45 Dose: 100 mcg Documented by: Fentanyl Citrate (Sublimaze Inj/Pf 100 Mcg/2 Ml Ampule) 25 mcg IV .WHILE IN PACU PRN PRN Reason: PAIN SCALE 2-3 Stop: 12/18/18 15:02 Fentanyl Citrate (Sublimaze Inj/Pf 100 Mcg/2 Ml Ampule) 12.5 mcg IV .WHILE IN PACU PRN PRN Reason: PAIN SCALE OF 1 Stop: 12/18/18 15:02 Fentanyl Citrate (Sublimaze Inj/Pf 100 Mcg/2 Ml Ampule) 50 mcg IV .WHILE IN PACU PRN PRN Reason: PAIN SCALE 4-5 Stop: 12/18/18 15:02 Fentanyl Citrate (Sublimaze Inj/Pf 100 Mcg/2 Ml Ampule) 100 mcg IV Q4HP PRN PRN Reason: PAIN SCALE OF 5 Stop: 12/25/18 16:31 Last Admin: 12/21/18 11:42 Dose: 100 mcg Documented by: Fentanyl Citrate (Sublimaze Inj/Pf 100 Mcg/2 Ml Ampule) Confirm Administered Dose 100 mcg .ROUTE .STK-MED ONE Stop: 12/18/18 17:18 Last Admin: 12/18/18 19:20 Dose: 100 mcg Documented by: Fentanyl Citrate (Sublimaze Inj/Pf 100 Mcg/2 Ml Ampule) Confirm Administered Dose 100 mcg .ROUTE .STK-MED ONE Stop: 12/18/18 18:00 Fentanyl Citrate (Sublimaze Inj/Pf 100 Mcg/2 Ml Ampule) Confirm Administered Dose 100 mcg .ROUTE .STK-MED ONE Stop: 12/18/18 19:25 Last Admin: 12/18/18 20:23 Dose: Not Given Documented by: Hard Fat/Phenylephrine (Evans-Synephrine Inj/Pf 10 Mg/1 Ml Sdv) Confirm Administered Dose 10 mg .ROUTE .STK-MED ONE Stop: 12/18/18 17:30 Last Admin: 12/18/18 20:10 Dose: Not Given Documented by: Hard Fat/Phenylephrine (Evans-Synephrine Inj/Pf 10 Mg/1 Ml Sdv) 20 mg .ROUTE .STK-MED ONE Stop: 12/18/18 10:28 Hydromorphone HCl (Dilaudid Inj/Pf 2 Mg/Ml Ampule) Confirm Administered Dose 2 mg .ROUTE .STK-MED ONE Stop: 12/18/18 09:35 Cefazolin Sodium 2 gm/ (Dextrose) 100 mls @ 200 mls/hr IV .PREOP 12-18-18 PRN PRN Reason: THIS MED IS NOT "PRN" Stop: 12/18/18 23:59 Metronidazole (Flagyl Rtu 500 Mg/Ns 100ml Premix) 500 mg in 100 mls @ 100 mls/hr IV PREOP PRN PRN Reason: THIS MED IS NOT "PRN" Stop: 12/18/18 23:59 Lactated Ringer's (Lactated Ringers 1000 Ml Iv Soln) 1,000 mls @ 125 mls/hr IV CONTINUOUS PRN PRN Reason: THIS MED IS NOT "PRN" Stop: 12/18/18 23:59 Last Admin: 12/18/18 08:05 Dose: 0 mls Documented by: Metronidazole (Flagyl Rtu 500 Mg/Ns 100ml Premix) Confirm Administered Dose 500 mg in 100 mls @ ud IV .STK-MED ONE Stop: 12/18/18 09:18 Last Admin: 12/18/18 20:17 Dose: Not Given Documented by: Fentanyl/Bupivacaine/Sodium Chlor (Fentanyl 300mcg/150 Ml Bupiv 0.125% Epidural) Confirm Administered Dose 300 mcg in 150 mls @ ud EPI .STK-MED ONE Stop: 12/18/18 10:29 Albumin Human (Albuminar-25 Rtu Inj 12.5 Gm/50 Ml Premix) 12.5 gm in 50 mls @ 50 mls/hr IV Q1H [facility] Stop: 12/18/18 15:29 Last Admin: 12/18/18 20:18 Dose: Not Given Documented by: Propofol (Diprivan Rtu 1000 Mg/100 Ml Inf.Bottle) Confirm Administered Dose 1,000 mg in 100 mls @ ud IV .STK-MED ONE Stop: 12/18/18 16:09 Last Admin: 12/18/18 20:17 Dose: Not Given Documented by: Fentanyl/Bupivacaine/Sodium Chlor (Fentanyl 300mcg/150 Ml Bupiv 0.125% Epidural) 300 mcg in 150 mls @ 0 mls/hr EPI CONTINUOUS PRN PRN Reason: THIS IS NOT A "PRN" MED Stop: 12/25/18 16:16 Propofol (Diprivan Rtu 1000 Mg/100 Ml Inf.Bottle) 1,000 mg in 100 mls @ 3.402 mls/hr IV CONTINUOUS PRN; Protocol PRN Reason: THIS MED IS NOT "PRN" Stop: 01/17/19 16:06 Last Titration: 12/19/18 09:33 Dose: Infused Documented by: Potassium Chloride/Dextrose/Sod Cl (D5-1/2ns 1000 Ml/Kcl 20 Meq Premix Bag) 1,000 mls @ 125 mls/hr IV CONTINUOUS PRN PRN Reason: THIS MED IS NOT "PRN" Stop: 01/17/19 16:19 Cefazolin Sodium/Dextrose (Ancef Rtu 1 Gm/D5w 50 Ml Premix Bag) 50 mls @ 100 mls/hr IV Q8H [facility] Stop: 12/25/18 16:44 Metronidazole 250 mg/ (Miscellaneous Information) 50 mls @ 100 mls/hr IV Q8 [facility] Stop: 12/25/18 21:59 Lactated Ringer's (Lactated Ringers 1000 Ml Iv Soln) 1,000 mls @ 0 mls/hr IV BOLUS ONE Stop: 12/18/18 17:31 Last Admin: 12/18/18 20:08 Dose: 999 mls/hr Documented by: Albumin Human (Albutein 5% Inj 25 Gm/500 Ml Premixed Bottle) 500 mls @ 1,000 mls/hr IV NOW ONE Stop: 12/18/18 17:59 Last Admin: 12/18/18 20:07 Dose: 1,000 mls/hr Documented by: Norepinephrine Bitartrate 4 mg (/ Dextrose) 254 mls @ 0 mls/hr IV CONTINUOUS PRN; Protocol PRN Reason: THIS MED IS NOT "PRN" Stop: 01/17/19 17:06 Last Titration: 12/18/18 20:34 Dose: 0 mcg/min, 0 mls/hr Documented by: Nicardipine HCl (Cardene 20 Mg/200 Ml Premix Bag) Confirm Administered Dose 20 mg in 200 mls @ ud IV .STK-MED ONE Stop: 12/18/18 17:20 Last Admin: 12/18/18 20:13 Dose: Not Given Documented by: Prothrombin Complex Concent ( (Human) 5,000 unit/ Syringe) 190.5 mls @ 504 mls/hr IV NOW ONE Stop: 12/18/18 19:22 Last Admin: 12/18/18 20:26 Dose: Not Given Documented by: Albumin Human (Albutein 5% Inj 25 Gm/500 Ml Premixed Bottle) 500 mls @ 1,000 mls/hr IV NOW ONE Stop: 12/18/18 18:59 Last Admin: 12/18/18 20:10 Dose: 1,000 mls/hr Documented by: Sodium Bicarbonate 125 meq/ (Sterile Water) 1,125 mls @ 75 mls/hr IV CONTINUOUS PRN PRN Reason: THIS MED IS NOT "PRN" Stop: 01/17/19 18:53 Last Admin: 12/18/18 19:58 Dose: 75 mls/hr Documented by: Tranexamic Acid 1,000 mg/ (Dextrose) 90.4 mls @ 11.3 mls/hr IV NOW ONE Stop: 12/19/18 03:59 Last Admin: 12/18/18 19:54 Dose: 11.3 mls/hr Documented by: Dexmedetomidine/Sodium Chloride (Precedex 400 Mcg/Ns 100 Ml Iv Premix) 400 mcg in 100 mls @ 0 mls/hr IV CONTINUOUS PRN; Protocol PRN Reason: THIS MED IS NOT "PRN" Stop: 01/18/19 07:26 Last Titration: 12/20/18 14:14 Dose: Infused Documented by: Sodium Bicarbonate 125 meq/ (Sterile Water) 1,125 mls @ 50 mls/hr IV CONTINUOUS PRN PRN Reason: THIS MED IS NOT "PRN" Stop: 01/17/19 18:53 Last Admin: 12/20/18 07:23 Dose: 50 mls/hr Documented by: Influenza Virus Vaccine Quadrival (Flulaval Quad Vac 0.5 Ml Syr) 0.5 ml IM .ONCE ONE Stop: 12/18/18 21:03 Lidocaine HCl (Xylocaine 0.5% Inj-Pf (5 Mg/Ml) 50 Ml Sdv) 0.4 ml SUBCUT PRN PRN PRN Reason: PRIOR TO ESTABLISHING IV LINE Stop: 12/18/18 23:59 Lidocaine HCl (Xylocaine 2% Inj-Pf (20 Mg/Ml) 2 Ml Ampul) 2 ml .ROUTE .STK-MED ONE Stop: 12/18/18 10:28 Meperidine HCl (Demerol Inj 25 Mg/1 Ml Syringe) 12.5 mg IV .WHILE IN PACU PRN PRN Reason: Shivering Stop: 12/18/18 15:02 Metoprolol Tartrate (Lopressor 25 Mg Tablet) Confirm Administered Dose 25 mg .ROUTE .STK-MED ONE Stop: 12/18/18 08:37 Last Admin: 12/18/18 10:14 Dose: 50 mg Documented by: Midazolam HCl (Versed 2 Mg/2 Ml Inj) Confirm Administered Dose 2 mg .ROUTE .STK- MED ONE Stop: 12/18/18 08:46 Last Admin: 12/18/18 08:45 Dose: 2 mg Documented by: Midazolam HCl (Versed 2 Mg/2 Ml Inj) Confirm Administered Dose 2 mg .ROUTE .STK- MED ONE Stop: 12/18/18 18:00 Morphine Sulfate (Morphine 10 Mg/Ml Inj) Confirm Administered Dose 10 mg .ROUTE .STK-MED ONE Stop: 12/18/18 17:22 Last Admin: 12/18/18 20:18 Dose: 2 mg Documented by: Morphine Sulfate (Morphine 10 Mg/Ml Inj) Confirm Administered Dose 10 mg .ROUTE .STK-MED ONE Stop: 12/18/18 18:00 Multi-Ingredient Cream (Lacri-Lube S.O.P. Ointment 3.5 Gm) 1 applic OU Q8HP PRN PRN Reason: DRY EYE(S) Stop: 01/17/19 16:17 Norepinephrine Bitartrate (Levophed Inj/Pf 4 Mg/4 Ml Sdv) Confirm Administered Dose 4 mg IV .STK-MED ONE Stop: 12/18/18 17:10 Last Admin: 12/18/18 20:16 Dose: Not Given Documented by: Norepinephrine Bitartrate (Levophed Inj/Pf 4 Mg/4 Ml Sdv) Confirm Administered Dose 4 mg IV .STK-MED ONE Stop: 12/18/18 20:03 Last Admin: 12/18/18 20:15 Dose: Not Given Documented by: Ondansetron HCl (Zofran Inj/Pf 4 Mg/2 Ml Sdv) 8 mg .ROUTE .STK-MED ONE Stop: 12/18/18 10:28 Promethazine HCl (Phenergan Inj 25 Mg/1 Ml Vial) 12.5 mg IV .WHILE IN PACU PRN PRN Reason: NAUSEA AND VOMITING Stop: 12/18/18 15:02 Propofol (Diprivan Inj 200 Mg/20 Ml Vial) Confirm Administered Dose 200 mg IV .STK-MED ONE Stop: 12/18/18 09:35 Rocuronium [place] (Zemuron Inj 50 Mg/5 Ml Vial) 100 mg IV .STK-MED ONE Stop: 12/18/18 10:28 Succinylcholine Chloride (Anectine Inj 200 Mg/10 Ml Vial) 200 mg .ROUTE .STK- MED ONE Stop: 12/18/18 10:28 Tranexamic Acid (Tranexamic Acid Inj/Pf 1000 Mg/10 Ml Sdv) Confirm Administered Dose 1,000 mg .ROUTE .STK-MED ONE Stop: 12/18/18 12:45 Tranexamic Acid (Tranexamic Acid Inj/Pf 1000 Mg/10 Ml Sdv) 1,500 mg IV NOW ONE Stop: 12/18/18 18:01 Last Admin: 12/18/18 18:00 Dose: 1,000 mg Documented by: Tranexamic Acid (Tranexamic Acid Inj/Pf 1000 Mg/10 Ml Sdv) 1,000 mg IV ONCE [facility] Stop: 12/21/18 19:14 Vecuronium [place] (Norcuron Inj 10 Mg Vial) 20 mg IV .STK-MED ONE Stop: 12/18/18 10:28 PHYSICAL EXAMINATION: The patient is moderately obese NG tube in situ. Has chest and abdominal pain with coughing, but no anginal symptoms. Selected Entries 12/21/18 12/21/18 12:00 12:20 Temperature 100.4 F Core 100.4 F Temperature Heart Rate ( 75 Monitors) Respiratory 22 H Rate Blood Pressure 124/69 [Left] Blood Pressure 87 Mean [Left] Blood Pressure Supine Position [Left] O2 Sat by Pulse 100 Oximetry Oxygen Delivery Nasal Cannula Method ( includes room air) Oxygen Flow 5 Rate Labs- Entire Visit 12/18/18 12/18/18 12/18/18 08:19 08:19 08:19 WBC 8.0 RBC 4.29 L Hgb 11.9 L Hct 36.9 L MCV 86 MCH 27.8 MCHC 32.4 RDW 14.2 H Plt Count 165 Lymph % (Auto) [facility] [place] % (Auto) Eos % (Auto) Baso % (Auto) Absolute Neuts (auto) Absolute Lymphs (auto) Absolute Monos (auto) Absolute Eos (auto) Absolute Basos (auto) Total Counted Seg Neutrophils % Seg Neuts % (Manual) Band Neutrophils % Lymphocytes % (Manual) Monocytes % (Manual) Eosinophils % (Manual) Basophils % (Manual) Abs Neuts (Manual) Abs Lymphs (Manual) Abs Monocytes (Manual) Absolute Eos (Manual) Abs Basophils (Manual) Platelet Comment Hypochromasia Anisocytosis PT INR APTT Fibrinogen Carbonic Acid HCO3/H2CO3 Ratio ABG pH ABG pCO2 ABG pO2 ABG HCO3 ABG Total CO2 ABG O2 Saturation ABG Base Excess FiO2 Sodium Potassium Cancelled Chloride Carbon Dioxide Anion Gap BUN Creatinine Est GFR ( Amer) Est GFR (MDRD) Non-Af Glucose POC Glucose Hemoglobin A1c % Lactic Acid Calcium Phosphorus Magnesium Total Bilirubin Direct Bilirubin Neonat Total Bilirubin Neonat Direct Bilirubin Neonat Indirect Bili AST ALT Alkaline Phosphatase Ammonia Troponin I Total Protein Albumin Amylase Lipase Blood Type Cancelled Antibody Screen Cancelled Crossmatch Mass Transfus Initiated Mass Transfus Discontin 12/18/18 12/18/18 12/18/18 08:36 09:08 09:08 WBC RBC Hgb Hct MCV MCH MCHC RDW Plt Count Lymph % (Auto) [facility] [place] [facility] % (Auto) Eos % (Auto) Baso % (Auto) Absolute Neuts (auto) Absolute Lymphs (auto) Absolute Monos (auto) Absolute Eos (auto) Absolute Basos (auto) Total Counted Seg Neutrophils % Seg Neuts % (Manual) Band Neutrophils % Lymphocytes % (Manual) Monocytes % (Manual) Eosinophils % (Manual) Basophils % (Manual) Abs Neuts (Manual) Abs Lymphs (Manual) Abs Monocytes (Manual) Absolute Eos (Manual) Abs Basophils (Manual) Platelet Comment Hypochromasia Anisocytosis PT INR APTT Fibrinogen Carbonic Acid HCO3/H2CO3 Ratio ABG pH ABG pCO2 ABG pO2 ABG HCO3 ABG Total CO2 ABG O2 Saturation ABG Base Excess FiO2 Sodium Potassium 4.1 Chloride Carbon Dioxide Anion Gap BUN Creatinine Est GFR ( Amer) Est GFR (MDRD) Non-Af Glucose POC Glucose 225 H Hemoglobin A1c % Lactic Acid Calcium Phosphorus Magnesium Total Bilirubin Direct Bilirubin Neonat Total Bilirubin Neonat Direct Bilirubin Neonat Indirect Bili AST ALT Alkaline Phosphatase Ammonia Troponin I Total Protein Albumin Amylase Lipase Blood Type O POSITIVE Antibody Screen NEGATIVE Crossmatch See Detail Mass Transfus Initiated Mass Transfus Discontin 12/18/18 12/18/18 12/18/18 13:45 13:50 15:00 WBC 8.2 RBC 2.81 L Hgb 7.9 L D Hct 23.8 L MCV 85 MCH 28.3 MCHC 33.4 RDW 13.9 Plt Count 118 L Lymph % (Auto) 11.[address] [place] % (Auto) 3.8 Eos % (Auto) 0.9 Baso % (Auto) 0.2 Absolute Neuts (auto) 6.9 Absolute Lymphs (auto) 0.9 Absolute Monos (auto) 0.3 Absolute Eos (auto) 0.1 Absolute Basos (auto) 0.0 Total Counted Seg Neutrophils % 83.6 H Seg Neuts % (Manual) Band Neutrophils % Lymphocytes % (Manual) Monocytes % (Manual) Eosinophils % (Manual) Basophils % (Manual) Abs Neuts (Manual) Abs Lymphs (Manual) Abs Monocytes (Manual) Absolute Eos (Manual) Abs Basophils (Manual) Platelet Comment Hypochromasia Anisocytosis PT INR APTT Fibrinogen Carbonic Acid 0.93 L HCO3/H2CO3 Ratio 23:1 ABG pH 7.46 H ABG pCO2 31.0 L ABG pO2 235.5 H ABG HCO3 21.5 ABG Total CO2 22.5 L ABG O2 Saturation 99.6 H ABG Base Excess -2.0 FiO2 50 Sodium Potassium Chloride Carbon Dioxide Anion Gap BUN Creatinine Est GFR ( Amer) Est GFR (MDRD) Non-Af Glucose POC Glucose 269 H Hemoglobin A1c % Lactic Acid Calcium Phosphorus Magnesium Total Bilirubin Direct Bilirubin Neonat Total Bilirubin Neonat Direct Bilirubin Neonat Indirect Bili AST ALT Alkaline Phosphatase Ammonia Troponin I Total Protein Albumin Amylase Lipase Blood Type Antibody Screen Crossmatch Mass Transfus Initiated Mass Transfus Discontin 12/18/18 12/18/18 12/18/18 17:04 17:04 17:38 WBC 13.7 H RBC 3.93 L Hgb 10.9 L D Hct 33.7 L MCV 86 MCH 27.6 MCHC 32.2 RDW 14.7 H Plt Count 106 L Lymph % (Auto) [facility] % (Auto) Eos % (Auto) Baso % (Auto) Absolute Neuts (auto) Absolute Lymphs (auto) Absolute Monos (auto) Absolute Eos (auto) Absolute Basos (auto) Total Counted Seg Neutrophils % Seg Neuts % (Manual) Band Neutrophils % Lymphocytes % (Manual) Monocytes % (Manual) Eosinophils % (Manual) Basophils % (Manual) Abs Neuts (Manual) Abs Lymphs (Manual) Abs Monocytes (Manual) Absolute Eos (Manual) Abs Basophils (Manual) Platelet Comment Hypochromasia Anisocytosis PT INR APTT Fibrinogen Carbonic Acid 1.28 HCO3/H2CO3 Ratio 16:1 ABG pH 7.30 L ABG pCO2 42.5 ABG pO2 89.7 ABG HCO3 20.5 ABG Total CO2 21.8 L ABG O2 Saturation 96.1 ABG Base Excess -5.5 FiO2 40% Sodium 137.8 Potassium 5.6 H D Chloride 106 Carbon Dioxide 23 Anion Gap 9 BUN 16 Creatinine 1.61 H Est GFR ( Amer) 52 L Est GFR (MDRD) Non-Af 43 L Glucose 263 H POC Glucose Hemoglobin A1c % Lactic Acid Calcium 8.4 Phosphorus Magnesium Total Bilirubin Direct Bilirubin Neonat Total Bilirubin Neonat Direct Bilirubin Neonat Indirect Bili AST ALT Alkaline Phosphatase Ammonia Troponin I Total Protein Albumin Amylase Lipase Blood Type Antibody Screen Crossmatch Mass Transfus Initiated Mass Transfus Discontin 12/18/18 12/18/18 12/18/18 18:55 18:55 18:55 WBC 13.3 H RBC 3.65 L Hgb 10.5 L Hct 32.3 L MCV 88 MCH 28.8 MCHC 32.6 RDW 14.8 H Plt Count 80 L Lymph % (Auto) 7.[address] [facility] [place] [facility] % (Auto) 11.2 Eos % (Auto) 0.1 Baso % (Auto) 0.1 Absolute Neuts (auto) 10.8 H Absolute Lymphs (auto) 1.0 Absolute Monos (auto) 1.5 H Absolute Eos (auto) 0.0 Absolute Basos (auto) 0.0 Total Counted Seg Neutrophils % 81.0 H Seg Neuts % (Manual) Band Neutrophils % Lymphocytes % (Manual) Monocytes % (Manual) Eosinophils % (Manual) Basophils % (Manual) Abs Neuts (Manual) Abs Lymphs (Manual) Abs Monocytes (Manual) Absolute Eos (Manual) Abs Basophils (Manual) Platelet Comment Hypochromasia Anisocytosis PT 17.9 H INR 1.46 APTT Fibrinogen 155 L Carbonic Acid HCO3/H2CO3 Ratio ABG pH ABG pCO2 ABG pO2 ABG HCO3 ABG Total CO2 ABG O2 Saturation ABG Base Excess FiO2 Sodium 140.8 Potassium 5.4 H Chloride 107 Carbon Dioxide 16 L Anion Gap 18 BUN 15 Creatinine 1.38 H Est GFR ( Amer) > 60 Est GFR (MDRD) Non-Af 51 L Glucose 307 H POC Glucose Hemoglobin A1c % Lactic Acid Calcium 7.4 L Phosphorus Magnesium Total Bilirubin 0.9 Direct Bilirubin 0.5 H Neonat Total Bilirubin Not Reportable Neonat Direct Bilirubin Not Reportable Neonat Indirect Bili Not Reportable AST 39 ALT 19 Alkaline Phosphatase 39 Ammonia Troponin I Total Protein 4.5 L Albumin 2.3 L Amylase 41 Lipase 328.7 H Blood Type Antibody Screen Crossmatch Mass Transfus Initiated Mass Transfus Discontin 12/18/18 12/18/18 12/18/18 18:55 20:09 20:15 WBC RBC Hgb Hct MCV MCH MCHC RDW Plt Count Lymph % (Auto) [facility] % (Auto) Eos % (Auto) Baso % (Auto) Absolute Neuts (auto) Absolute Lymphs (auto) Absolute Monos (auto) Absolute Eos (auto) Absolute Basos (auto) Total Counted Seg Neutrophils % Seg Neuts % (Manual) Band Neutrophils % Lymphocytes % (Manual) Monocytes % (Manual) Eosinophils % (Manual) Basophils % (Manual) Abs Neuts (Manual) Abs Lymphs (Manual) Abs Monocytes (Manual) Absolute Eos (Manual) Abs Basophils (Manual) Platelet Comment Hypochromasia Anisocytosis PT INR APTT Fibrinogen Carbonic Acid HCO3/H2CO3 Ratio ABG pH ABG pCO2 ABG pO2 ABG HCO3 ABG Total CO2 ABG O2 Saturation ABG Base Excess FiO2 Sodium Potassium Chloride Carbon Dioxide Anion Gap BUN Creatinine Est GFR ( Amer) Est GFR (MDRD) Non-Af Glucose POC Glucose 298 H Hemoglobin A1c % Lactic Acid 5.7 H Calcium Phosphorus Magnesium Total Bilirubin Direct Bilirubin Neonat Total Bilirubin Neonat Direct Bilirubin Neonat Indirect Bili AST ALT Alkaline Phosphatase Ammonia Troponin I Total Protein Albumin Amylase Lipase Blood Type Antibody Screen Crossmatch Mass Transfus Initiated MTP INITIATED Mass Transfus Discontin MTP DISCONTINUED 12/18/18 12/18/18 12/18/18 22:08 22:08 22:08 WBC 11.0 H RBC 3.95 L Hgb 11.4 L Hct 34.2 L MCV 87 MCH 29.0 MCHC 33.5 RDW 14.0 Plt Count 71 L Lymph % (Auto) Not Reportable [facility] % (Auto) Not Reportable Eos % (Auto) Not Reportable Baso % (Auto) Not Reportable Absolute Neuts (auto) Not Reportable Absolute Lymphs (auto) Not Reportable Absolute Monos (auto) Not Reportable Absolute Eos (auto) Not Reportable Absolute Basos (auto) Not Reportable Total Counted 100 Seg Neutrophils % Not Reportable Seg Neuts % (Manual) 81 H Band Neutrophils % 7 H Lymphocytes % (Manual) 6 L Monocytes % (Manual) 6 Eosinophils % (Manual) 0 Basophils % (Manual) 0 Abs Neuts (Manual) 9.7 H Abs Lymphs (Manual) 0.7 Abs Monocytes (Manual) 0.7 Absolute Eos (Manual) 0.0 Abs Basophils (Manual) 0.0 Platelet Comment DECREASED Hypochromasia SLIGHT Anisocytosis SLIGHT PT 17.2 H INR 1.39 APTT 31.4 Fibrinogen 212 Carbonic Acid 0.87 L HCO3/H2CO3 Ratio 20:1 ABG pH 7.41 ABG pCO2 29.0 L ABG pO2 166.4 H ABG HCO3 17.9 L ABG Total CO2 18.8 L ABG O2 Saturation 99.2 H ABG Base Excess -5.3 FiO2 40% Sodium Potassium Chloride Carbon Dioxide Anion Gap BUN Creatinine Est GFR ( Amer) Est GFR (MDRD) Non-Af Glucose POC Glucose Hemoglobin A1c % Lactic Acid Calcium Phosphorus Magnesium Total Bilirubin Direct Bilirubin Neonat Total Bilirubin Neonat Direct Bilirubin Neonat Indirect Bili AST ALT Alkaline Phosphatase Ammonia Troponin I Total Protein Albumin Amylase Lipase Blood Type Antibody Screen Crossmatch Mass Transfus Initiated Mass Transfus Discontin 12/18/18 12/18/18 12/18/18 22:08 22:08 22:08 WBC RBC Hgb Hct MCV MCH MCHC RDW Plt Count Lymph % (Auto) [facility] % (Auto) Eos % (Auto) Baso % (Auto) Absolute Neuts (auto) Absolute Lymphs (auto) Absolute Monos (auto) Absolute Eos (auto) Absolute Basos (auto) Total Counted Seg Neutrophils % Seg Neuts % (Manual) Band Neutrophils % Lymphocytes % (Manual) Monocytes % (Manual) Eosinophils % (Manual) Basophils % (Manual) Abs Neuts (Manual) Abs Lymphs (Manual) Abs Monocytes (Manual) Absolute Eos (Manual) Abs Basophils (Manual) Platelet Comment Hypochromasia Anisocytosis PT INR APTT Fibrinogen Carbonic Acid HCO3/H2CO3 Ratio ABG pH ABG pCO2 ABG pO2 ABG HCO3 ABG Total CO2 ABG O2 Saturation ABG Base Excess FiO2 Sodium 136.1 L Potassium 5.7 H Chloride 103 Carbon Dioxide 21 L Anion Gap 12 BUN 16 Creatinine 1.29 H Est GFR ( Amer) > 60 Est GFR (MDRD) Non-Af 55 L Glucose 324 H POC Glucose Hemoglobin A1c % Lactic Acid 3.1 H Calcium 8.5 Phosphorus 3.8 Magnesium 1.8 Total Bilirubin 3.0 H Direct Bilirubin 1.5 H Neonat Total Bilirubin Not Reportable Neonat Direct Bilirubin Not Reportable Neonat Indirect Bili Not Reportable AST 53 ALT 23 Alkaline Phosphatase 48 Ammonia Troponin I 0.059 Total Protein 5.4 L Albumin 3.2 L Amylase Lipase Blood Type Antibody Screen Crossmatch Mass Transfus Initiated Mass Transfus Discontin 12/18/18 12/19/18 12/19/18 23:57 05:00 05:00 WBC RBC Hgb Hct MCV MCH MCHC RDW Plt Count Lymph % (Auto) [facility] % (Auto) Eos % (Auto) Baso % (Auto) Absolute Neuts (auto) Absolute Lymphs (auto) Absolute Monos (auto) Absolute Eos (auto) Absolute Basos (auto) Total Counted Seg Neutrophils % Seg Neuts % (Manual) Band Neutrophils % Lymphocytes % (Manual) Monocytes % (Manual) Eosinophils % (Manual) Basophils % (Manual) Abs Neuts (Manual) Abs Lymphs (Manual) Abs Monocytes (Manual) Absolute Eos (Manual) Abs Basophils (Manual) Platelet Comment Hypochromasia Anisocytosis PT INR APTT Fibrinogen Carbonic Acid HCO3/H2CO3 Ratio ABG pH ABG pCO2 ABG pO2 ABG HCO3 ABG Total CO2 ABG O2 Saturation ABG Base Excess FiO2 Sodium 138.3 Potassium 5.0 Chloride 105 Carbon Dioxide 23 Anion Gap 10 BUN 19 Creatinine 1.39 H Est GFR ( Amer) > 60 Est GFR (MDRD) Non-Af 51 L Glucose 312 H POC Glucose 353 H Hemoglobin A1c % Lactic Acid Calcium 8.4 Phosphorus 3.6 Magnesium 1.8 Total Bilirubin 2.9 H Direct Bilirubin 1.9 H Neonat Total Bilirubin Not Reportable Neonat Direct Bilirubin Not Reportable Neonat Indirect Bili Not Reportable AST 53 ALT 24 Alkaline Phosphatase 49 Ammonia < 8.7 L Troponin I Total Protein 5.1 L Albumin 2.9 L Amylase 73 Lipase 293.1 Blood Type Antibody Screen Crossmatch Mass Transfus Initiated Mass Transfus Discontin 12/19/18 12/19/18 12/19/18 05:00 05:00 05:00 WBC 9.9 RBC 3.43 L Hgb 10.2 L Hct 29.4 L MCV 86 MCH 29.8 MCHC 34.8 RDW 14.2 H Plt Count 173 D Lymph % (Auto) 10.[address] [facility] % (Auto) 12.5 Eos % (Auto) 0.0 Baso % (Auto) 0.1 Absolute Neuts (auto) 7.6 Absolute Lymphs (auto) 1.0 Absolute Monos (auto) 1.2 Absolute Eos (auto) 0.0 Absolute Basos (auto) 0.0 Total Counted Seg Neutrophils % 77.3 Seg Neuts % (Manual) Band Neutrophils % Lymphocytes % (Manual) Monocytes % (Manual) Eosinophils % (Manual) Basophils % (Manual) Abs Neuts (Manual) Abs Lymphs (Manual) Abs Monocytes (Manual) Absolute Eos (Manual) Abs Basophils (Manual) Platelet Comment Hypochromasia Anisocytosis PT INR APTT Fibrinogen Carbonic Acid 1.05 HCO3/H2CO3 Ratio 23:1 ABG pH 7.46 H ABG pCO2 34.9 L ABG pO2 67.5 L ABG HCO3 24.3 H ABG Total CO2 25.4 ABG O2 Saturation 94.5 ABG Base Excess 1.0 FiO2 21% Sodium Potassium Chloride Carbon Dioxide Anion Gap BUN Creatinine Est GFR ( Amer) Est GFR (MDRD) Non-Af Glucose POC Glucose Hemoglobin A1c % 6.7 H Lactic Acid Calcium Phosphorus Magnesium Total Bilirubin Direct Bilirubin Neonat Total Bilirubin Neonat Direct Bilirubin Neonat Indirect Bili AST ALT Alkaline Phosphatase Ammonia Troponin I Total Protein Albumin Amylase Lipase Blood Type Antibody Screen Crossmatch Mass Transfus Initiated Mass Transfus Discontin 12/19/18 12/19/18 12/19/18 05:00 05:00 05:14 WBC RBC Hgb Hct MCV MCH MCHC RDW Plt Count Lymph % (Auto) [facility] % (Auto) Eos % (Auto) Baso % (Auto) Absolute Neuts (auto) Absolute Lymphs (auto) Absolute Monos (auto) Absolute Eos (auto) Absolute Basos (auto) Total Counted Seg Neutrophils % Seg Neuts % (Manual) Band Neutrophils % Lymphocytes % (Manual) Monocytes % (Manual) Eosinophils % (Manual) Basophils % (Manual) Abs Neuts (Manual) Abs Lymphs (Manual) Abs Monocytes (Manual) Absolute Eos (Manual) Abs Basophils (Manual) Platelet Comment Hypochromasia Anisocytosis PT 16.1 H INR 1.28 APTT 29.5 Fibrinogen Carbonic Acid HCO3/H2CO3 Ratio ABG pH ABG pCO2 ABG pO2 ABG HCO3 ABG Total CO2 ABG O2 Saturation ABG Base Excess FiO2 Sodium Potassium Chloride Carbon Dioxide Anion Gap BUN Creatinine Est GFR ( Amer) Est GFR (MDRD) Non-Af Glucose POC Glucose 347 H Hemoglobin A1c % Lactic Acid 1.9 Calcium Phosphorus Magnesium Total Bilirubin Direct Bilirubin Neonat Total Bilirubin Neonat Direct Bilirubin Neonat Indirect Bili AST ALT Alkaline Phosphatase Ammonia Troponin I Total Protein Albumin Amylase Lipase Blood Type Antibody Screen Crossmatch Mass Transfus Initiated Mass Transfus Discontin 12/19/18 12/19/18 12/19/18 10:59 12:00 12:00 WBC RBC Hgb Hct MCV MCH MCHC RDW Plt Count Lymph % (Auto) [facility] % (Auto) Eos % (Auto) Baso % (Auto) Absolute Neuts (auto) Absolute Lymphs (auto) Absolute Monos (auto) Absolute Eos (auto) Absolute Basos (auto) Total Counted Seg Neutrophils % Seg Neuts % (Manual) Band Neutrophils % Lymphocytes % (Manual) Monocytes % (Manual) Eosinophils % (Manual) Basophils % (Manual) Abs Neuts (Manual) Abs Lymphs (Manual) Abs Monocytes (Manual) Absolute Eos (Manual) Abs Basophils (Manual) Platelet Comment Hypochromasia Anisocytosis PT INR APTT Fibrinogen Carbonic Acid 1.06 HCO3/H2CO3 Ratio 23:1 ABG pH 7.47 H ABG pCO2 35.1 ABG pO2 66.8 L ABG HCO3 25.0 H ABG Total CO2 26.0 ABG O2 Saturation 94.5 ABG Base Excess 1.7 FiO2 21% Sodium Potassium Chloride Carbon Dioxide Anion Gap BUN Creatinine Est GFR ( Amer) Est GFR (MDRD) Non-Af Glucose POC Glucose 310 H Hemoglobin A1c % Lactic Acid Calcium Phosphorus Magnesium Total Bilirubin Direct Bilirubin Neonat Total Bilirubin Neonat Direct Bilirubin Neonat Indirect Bili AST ALT Alkaline Phosphatase Ammonia Troponin I 0.148 Total Protein Albumin Amylase Lipase Blood Type Antibody Screen Crossmatch Mass Transfus Initiated Mass Transfus Discontin 12/19/18 12/19/18 12/19/18 17:15 17:20 23:59 WBC 14.3 H RBC 3.52 L Hgb 10.1 L Hct 29.9 L MCV 85 MCH 28.8 MCHC 33.9 RDW 14.8 H Plt Count 152 Lymph % (Auto) [facility] % (Auto) Eos % (Auto) Baso % (Auto) Absolute Neuts (auto) Absolute Lymphs (auto) Absolute Monos (auto) Absolute Eos (auto) Absolute Basos (auto) Total Counted Seg Neutrophils % Seg Neuts % (Manual) Band Neutrophils % Lymphocytes % (Manual) Monocytes % (Manual) Eosinophils % (Manual) Basophils % (Manual) Abs Neuts (Manual) Abs Lymphs (Manual) Abs Monocytes (Manual) Absolute Eos (Manual) Abs Basophils (Manual) Platelet Comment Hypochromasia Anisocytosis PT INR APTT Fibrinogen Carbonic Acid HCO3/H2CO3 Ratio ABG pH ABG pCO2 ABG pO2 ABG HCO3 ABG Total CO2 ABG O2 Saturation ABG Base Excess FiO2 Sodium Potassium Chloride Carbon Dioxide Anion Gap BUN Creatinine Est GFR ( Amer) Est GFR (MDRD) Non-Af Glucose POC Glucose 332 H 288 H Hemoglobin A1c % Lactic Acid Calcium Phosphorus Magnesium Total Bilirubin Direct Bilirubin Neonat Total Bilirubin Neonat Direct Bilirubin Neonat Indirect Bili AST ALT Alkaline Phosphatase Ammonia Troponin I Total Protein Albumin Amylase Lipase Blood Type Antibody Screen Crossmatch Mass Transfus Initiated Mass Transfus Discontin 12/20/18 12/20/18 12/20/18 04:02 04:02 04:02 WBC 18.6 H RBC 3.50 L Hgb 10.0 L Hct 30.1 L MCV 86 MCH 28.6 MCHC 33.2 RDW 14.7 H Plt Count 138 L Lymph % (Auto) 12.[address] [facility] % (Auto) 12.5 Eos % (Auto) 0.2 Baso % (Auto) 0.2 Absolute Neuts (auto) 13.8 H Absolute Lymphs (auto) 2.4 Absolute Monos (auto) 2.3 H Absolute Eos (auto) 0.0 Absolute Basos (auto) 0.0 Total Counted Seg Neutrophils % 74.4 Seg Neuts % (Manual) Band Neutrophils % Lymphocytes % (Manual) Monocytes % (Manual) Eosinophils % (Manual) Basophils % (Manual) Abs Neuts (Manual) Abs Lymphs (Manual) Abs Monocytes (Manual) Absolute Eos (Manual) Abs Basophils (Manual) Platelet Comment Hypochromasia Anisocytosis PT INR APTT Fibrinogen Carbonic Acid 1.10 HCO3/H2CO3 Ratio 22:1 ABG pH 7.46 H ABG pCO2 36.5 ABG pO2 61.9 L ABG HCO3 25.1 H ABG Total CO2 26.3 ABG O2 Saturation 93.0 L ABG Base Excess 1.4 FiO2 21% Sodium 134.8 L Potassium 4.1 Chloride 101 Carbon Dioxide 26 Anion Gap 8 BUN 31 H Creatinine 1.79 H Est GFR ( Amer) 46 L Est GFR (MDRD) Non-Af 38 L Glucose 265 H POC Glucose Hemoglobin A1c % Lactic Acid Calcium 8.0 L Phosphorus 2.9 Magnesium 2.1 Total Bilirubin 2.0 H Direct Bilirubin 1.2 H Neonat Total Bilirubin Not Reportable Neonat Direct Bilirubin Not Reportable Neonat Indirect Bili Not Reportable AST 79 H ALT 33 Alkaline Phosphatase 52 Ammonia Troponin I Total Protein 5.4 L Albumin 2.8 L Amylase Lipase Blood Type Antibody Screen Crossmatch Mass Transfus Initiated Mass Transfus Discontin 12/20/18 12/20/18 12/20/18 04:02 06:01 11:03 WBC RBC Hgb Hct MCV MCH MCHC RDW Plt Count Lymph % (Auto) [facility] % (Auto) Eos % (Auto) Baso % (Auto) Absolute Neuts (auto) Absolute Lymphs (auto) Absolute Monos (auto) Absolute Eos (auto) Absolute Basos (auto) Total Counted Seg Neutrophils % Seg Neuts % (Manual) Band Neutrophils % Lymphocytes % (Manual) Monocytes % (Manual) Eosinophils % (Manual) Basophils % (Manual) Abs Neuts (Manual) Abs Lymphs (Manual) Abs Monocytes (Manual) Absolute Eos (Manual) Abs Basophils (Manual) Platelet Comment Hypochromasia Anisocytosis PT 15.1 INR 1.18 APTT 30.1 Fibrinogen Carbonic Acid HCO3/H2CO3 Ratio ABG pH ABG pCO2 ABG pO2 ABG HCO3 ABG Total CO2 ABG O2 Saturation ABG Base Excess FiO2 Sodium Potassium Chloride Carbon Dioxide Anion Gap BUN Creatinine Est GFR ( Amer) Est GFR (MDRD) Non-Af Glucose POC Glucose 306 H 265 H Hemoglobin A1c % Lactic Acid Calcium Phosphorus Magnesium Total Bilirubin Direct Bilirubin Neonat Total Bilirubin Neonat Direct Bilirubin Neonat Indirect Bili AST ALT Alkaline Phosphatase Ammonia Troponin I Total Protein Albumin Amylase Lipase Blood Type Antibody Screen Crossmatch Mass Transfus Initiated Mass Transfus Discontin 12/20/18 12/20/18 12/20/18 11:10 12:30 16:54 WBC 21.1 H RBC 3.38 L Hgb 9.8 L Hct 29.1 L MCV 86 MCH 28.8 MCHC 33.5 RDW 14.7 H Plt Count 114 L Lymph % (Auto) [facility] % (Auto) Eos % (Auto) Baso % (Auto) Absolute Neuts (auto) Absolute Lymphs (auto) Absolute Monos (auto) Absolute Eos (auto) Absolute Basos (auto) Total Counted Seg Neutrophils % Seg Neuts % (Manual) Band Neutrophils % Lymphocytes % (Manual) Monocytes % (Manual) Eosinophils % (Manual) Basophils % (Manual) Abs Neuts (Manual) Abs Lymphs (Manual) Abs Monocytes (Manual) Absolute Eos (Manual) Abs Basophils (Manual) Platelet Comment Hypochromasia Anisocytosis PT INR APTT Fibrinogen Carbonic Acid 1.25 HCO3/H2CO3 Ratio 20:1 ABG pH 7.41 ABG pCO2 41.4 ABG pO2 61.8 L ABG HCO3 25.8 H ABG Total CO2 27.1 H ABG O2 Saturation 92.0 L ABG Base Excess 1.1 FiO2 21 Sodium Potassium Chloride Carbon Dioxide Anion Gap BUN Creatinine Est GFR ( Amer) Est GFR (MDRD) Non-Af Glucose POC Glucose Hemoglobin A1c % Lactic Acid Calcium Phosphorus Magnesium Total Bilirubin Direct Bilirubin Neonat Total Bilirubin Neonat Direct Bilirubin Neonat Indirect Bili AST ALT Alkaline Phosphatase Ammonia Troponin I 0.038 Total Protein Albumin Amylase Lipase Blood Type Antibody Screen Crossmatch Mass Transfus Initiated Mass Transfus Discontin 12/20/18 12/21/18 12/21/18 18:08 00:55 05:29 WBC RBC Hgb Hct MCV MCH MCHC RDW Plt Count Lymph % (Auto) [facility] % (Auto) Eos % (Auto) Baso % (Auto) Absolute Neuts (auto) Absolute Lymphs (auto) Absolute Monos (auto) Absolute Eos (auto) Absolute Basos (auto) Total Counted Seg Neutrophils % Seg Neuts % (Manual) Band Neutrophils % Lymphocytes % (Manual) Monocytes % (Manual) Eosinophils % (Manual) Basophils % (Manual) Abs Neuts (Manual) Abs Lymphs (Manual) Abs Monocytes (Manual) Absolute Eos (Manual) Abs Basophils (Manual) Platelet Comment Hypochromasia Anisocytosis PT INR APTT Fibrinogen Carbonic Acid HCO3/H2CO3 Ratio ABG pH ABG pCO2 ABG pO2 ABG HCO3 ABG Total CO2 ABG O2 Saturation ABG Base Excess FiO2 Sodium Potassium Chloride Carbon Dioxide Anion Gap BUN Creatinine Est GFR ( Amer) Est GFR (MDRD) Non-Af Glucose POC Glucose 244 H 272 H 211 H Hemoglobin A1c % Lactic Acid Calcium Phosphorus Magnesium Total Bilirubin Direct Bilirubin Neonat Total Bilirubin Neonat Direct Bilirubin Neonat Indirect Bili AST ALT Alkaline Phosphatase Ammonia Troponin I Total Protein Albumin Amylase Lipase Blood Type Antibody Screen Crossmatch Mass Transfus Initiated Mass Transfus Discontin 12/21/18 12/21/18 12/21/18 05:57 05:57 06:20 WBC RBC Hgb Hct MCV MCH MCHC RDW Plt Count Lymph % (Auto) [facility] % (Auto) Eos % (Auto) Baso % (Auto) Absolute Neuts (auto) Absolute Lymphs (auto) Absolute Monos (auto) Absolute Eos (auto) Absolute Basos (auto) Total Counted Seg Neutrophils % Seg Neuts % (Manual) Band Neutrophils % Lymphocytes % (Manual) Monocytes % (Manual) Eosinophils % (Manual) Basophils % (Manual) Abs Neuts (Manual) Abs Lymphs (Manual) Abs Monocytes (Manual) Absolute Eos (Manual) Abs Basophils (Manual) Platelet Comment Hypochromasia Anisocytosis PT INR APTT Fibrinogen Carbonic Acid HCO3/H2CO3 Ratio ABG pH ABG pCO2 ABG pO2 ABG HCO3 ABG Total CO2 ABG O2 Saturation ABG Base Excess FiO2 Sodium 137.9 Potassium 4.0 Chloride 102 Carbon Dioxide 29 Anion Gap 7 BUN 31 H Creatinine 1.44 H Est GFR ( Amer) 59 L Est GFR (MDRD) Non-Af 49 L Glucose 199 H POC Glucose Hemoglobin A1c % Lactic Acid 0.9 Calcium 7.5 L Phosphorus 3.0 Magnesium 2.2 Total Bilirubin 2.4 H Direct Bilirubin 1.9 H Neonat Total Bilirubin Not Reportable Neonat Direct Bilirubin Not Reportable Neonat Indirect Bili Not Reportable AST 49 ALT 21 Alkaline Phosphatase 56 Ammonia < 8.7 L Troponin I Total Protein 5.0 L Albumin 2.5 L Amylase Lipase Blood Type Antibody Screen Crossmatch Mass Transfus Initiated Mass Transfus Discontin 12/21/18 12/21/18 09:56 11:33 WBC RBC Hgb Hct MCV MCH MCHC RDW Plt Count Lymph % (Auto) [facility] % (Auto) Eos % (Auto) Baso % (Auto) Absolute Neuts (auto) Absolute Lymphs (auto) Absolute Monos (auto) Absolute Eos (auto) Absolute Basos (auto) Total Counted Seg Neutrophils % Seg Neuts % (Manual) Band Neutrophils % Lymphocytes % (Manual) Monocytes % (Manual) Eosinophils % (Manual) Basophils % (Manual) Abs Neuts (Manual) Abs Lymphs (Manual) Abs Monocytes (Manual) Absolute Eos (Manual) Abs Basophils (Manual) Platelet Comment Hypochromasia Anisocytosis PT INR APTT Fibrinogen Carbonic Acid HCO3/H2CO3 Ratio ABG pH ABG pCO2 ABG pO2 ABG HCO3 ABG Total CO2 ABG O2 Saturation ABG Base Excess FiO2 Sodium Potassium Chloride Carbon Dioxide Anion Gap BUN Creatinine Est GFR ( Amer) Est GFR (MDRD) Non-Af Glucose POC Glucose 216 H 194 H Hemoglobin A1c % Lactic Acid Calcium Phosphorus Magnesium Total Bilirubin Direct Bilirubin Neonat Total Bilirubin Neonat Direct Bilirubin Neonat Indirect Bili AST ALT Alkaline Phosphatase Ammonia Troponin I Total Protein Albumin Amylase Lipase Blood Type Antibody Screen Crossmatch Mass Transfus Initiated Mass Transfus Discontin Chest X-Ray 12/18/18 00:00 IMPRESSION: Support lines and tubes have been placed as described. Chest X-Ray 12/18/18 00:00 IMPRESSION: Lines and catheters in place, as above.. Probable tiny bibasilar effusions copyright 2010 [employer]- All Rights Reserved Chest X-Ray 12/19/18 00:00 IMPRESSION: 1. No significant interval changes since examination performed earlier on the same date, 12/19/2018. No evidence of pneumothorax. 2. Support tubes and line are unchanged. Chest X-Ray 12/19/18 06:00 IMPRESSION: STABLE APPEARANCE OF THE CHEST. SUPPORT DEVICES UNCHANGED. Chest X-Ray 12/20/18 06:00 IMPRESSION: 1. Tubes and lines as above. 2. Unchanged radiographic appearance of the chest with low inspiratory lung volumes, a probable left retrocardiac opacity, and mild cardiomegaly. Chest X-Ray 12/21/18 06:00 IMPRESSION: Stable appearance of the lungs. IMPRESSION/RECOMMENDATION:
[2018-12-21] MEDS ORDERED: HYDROMORPHONE HCL INJ/PF 2 MG/ML AMPULE ONE (18:12)
[2018-12-21] MEDS ORDERED: HYDROMORPHONE HCL INJ/PF 2 MG/ML AMPULE IV ONE (18:30)
[2018-12-21 19:07] LABS: HEMATOCRIT 24.4 % (37.9-51.0); MEAN CORPUSCULAR HEMOGLOBIN 28.6 pg (27.0-33.4); MEAN CORPUSCULAR HGB CONC 32.5 g/dL (32.0-36.0); MEAN CORPUSCULAR VOLUME 88 fl (80-97); PLATELET COUNT 107 10^3/uL (150-450); RED BLOOD COUNT 2.77 10^6/uL (4.35-5.55); RED CELL DISTRIBUTION WIDTH 14.4 % (11.5-14.0); WHITE BLOOD COUNT 18.7 10^3/uL (4.0-10.5)
[2018-12-21 19:11] LABS: HEMOGLOBIN 7.9 g/dL (13.5-17.0)
[2018-12-21] MEDS ORDERED: ALTEPLASE INJ 2 MG VIAL (CATH CLEARANCE) IV ONE ×3 (22:00)
[2018-12-21] MEDS: HYDROMORPHONE HCL INJ/PF 2 MG/ML AMPULE IV PRN (23:58)
[2018-12-22] MEDS: METRONIDAZOLE 500 MG/NS RTU 500 MG/100 ML RTUPB IV SCH ×3 (01:15→17:51)
[2018-12-22] MEDS: HYDROMORPHONE HCL INJ/PF 2 MG/ML AMPULE IV PRN ×4 (04:02→19:32)
[2018-12-22 04:57] LABS: ALBUMIN 2.4 g/dL (3.5-5.0); ALKALINE PHOSPHATASE 65 U/L (38-126); ASPARTATE AMINO TRANSFERASE 40 U/L (17-59); BILIRUBIN,DIRECT 2.3 mg/dL (0.0-0.4); BILIRUBIN,TOTAL 2.9 mg/dL (0.2-1.3); BLOOD UREA NITROGEN 31 mg/dL (7-20); CALCIUM 7.7 mg/dL (8.4-10.2); GLUCOSE 210 mg/dL (75-110); HEMATOCRIT 26.6 % (37.9-51.0); HEMOGLOBIN 8.7 g/dL (13.5-17.0); MEAN CORPUSCULAR HEMOGLOBIN 28.8 pg (27.0-33.4); MEAN CORPUSCULAR HGB CONC 32.7 g/dL (32.0-36.0); MEAN CORPUSCULAR VOLUME 88 fl (80-97); PLATELET COUNT 141 10^3/uL (150-450); POTASSIUM 3.8 mmol/L (3.6-5.0); RED BLOOD COUNT 3.02 10^6/uL (4.35-5.55); RED CELL DISTRIBUTION WIDTH 14.6 % (11.5-14.0); TOTAL PROTEIN 5.1 g/dL (6.3-8.2); WHITE BLOOD COUNT 20.9 10^3/uL (4.0-10.5)
[2018-12-22 05:15] LABS: ANION GAP 6 (5-19); CARBON DIOXIDE 30 mmol/L (22-30); CHLORIDE 101 mmol/L (98-107)
[2018-12-22] MEDS: CEFAZOLIN SODIUM 1 GM in DEXTROSE 5%-WATER 50 ML IV SCH ×3 (05:26→21:35)
[2018-12-22] MEDS: HEPARIN SOD (PORCINE) 5,000 UNIT/ML 1 ML VIAL SUBCUT SCH ×3 (05:27→21:35)
[2018-12-22] MEDS: METHOCARBAMOL 500 MG in DEXTROSE 5%-WATER 50 ML IV SCH (05:27)
[2018-12-22] MEDS: INSULIN LISPRO 100 UNIT/ML 3 ML VIAL SUBCUT SCH ×4 (05:27→23:57)
--- NOTE | 2018-12-22 09:35 | PDOC PROGRESS REPORT ---
Subjective Progress Note for:: 12/22/18 Subjective:: Awake alert abdominal pain slightly better overnight Reason For Visit: PANCREATIC CANCER Physical Exam Vital Signs: Temp Pulse Resp BP Pulse Ox 100.6 F H 94 18 146/68 H 99 12/22/18 08:00 12/22/18 08:00 12/22/18 08:00 12/22/18 08:00 12/22/18 08:00 Intake & Output 12/21/18 12/22/18 12/23/18 06:59 06:59 06:59 Intake Total 648 519 Output Total 1405 2970 100 Balance -757 -2451 -100 Weight 123.5 kg 118.6 kg General appearance: PRESENT: mild distress Head exam: PRESENT: normocephalic Eye exam: PRESENT: EOMI Ear exam: PRESENT: normal external ear exam Mouth exam: PRESENT: dry mucosa Neck exam: PRESENT: full ROM Respiratory exam: PRESENT: clear to auscultation roman Cardiovascular exam: PRESENT: RRR Pulses: PRESENT: normal femoral pulses, normal dorsalis pedis pul Vascular exam: PRESENT: normal capillary refill GI/Abdominal exam: PRESENT: other - Abdomen is soft tender to palpation over the incision both JPs are draining serosanguineous fluid the wound is clean. Rectal exam: PRESENT: deferred Gentrourinary exam: PRESENT: indwelling catheter Extremities exam: PRESENT: full ROM Musculoskeletal exam: PRESENT: full ROM Neurological exam: PRESENT: alert, awake, oriented to person, oriented to place, oriented to time, oriented to situation Psychiatric exam: PRESENT: appropriate affect Skin exam: PRESENT: dry Results Laboratory Results: 12/22/18 04:14 12/22/18 04:14 12/21/18 12/22/18 12/22/18 18:55 04:14 04:14 WBC 18.7 H 20.9 H RBC 2.77 L 3.02 L Hgb 7.9 L 8.7 L Hct 24.4 L 26.6 L MCV 88 88 MCH 28.6 28.8 MCHC 32.5 32.7 RDW 14.4 H 14.6 H Plt Count 107 L 141 L Sodium 137.4 Potassium 3.8 Chloride 101 Carbon Dioxide 30 Anion Gap 6 BUN 31 H Creatinine 1.54 H Est GFR ( Amer) 54 L Glucose 210 H Calcium 7.7 L Total Bilirubin 2.9 H AST 40 Alkaline Phosphatase 65 Total Protein 5.1 L Albumin 2.4 L Lipase 243.8 12/18/18 12/19/18 12/20/18 22:08 12:00 11:10 Troponin I 0.059 0.148 0.038 Impressions: Chest X-Ray 12/21/18 06:00 IMPRESSION: Stable appearance of the lungs. Assessment & Plan - Diagnosis (1) Pancreatic malignancy syndrome Is this a current diagnosis for this admission?: Yes - Time Time Spent with patient: 25-34 minutes - Plan Summary Plan Summary: Impression status post subtotal pancreatectomy splenectomy for pancreatic cancer immediate takeback for internal bleeding. Today's postop day 3 the patient remains in the intensive care unit he is ex tubated he has not had return of bowel function at this time. NG tube remains in place draining proximately 700 cc a day has normal good urine output. Hemoglobin and hematocrit are stable platelet count is stable his white count approximately 20 K slightly elevated from yesterday at 18 K. Plan is for increased mobilization today with physical therapy. We will attempt to mobilize patient and have him sit up in a chair Patient will remain in the intensive care unit today probable transfer to the regular floor when he is more mobile. Will attempt to restart his J-tube feedings.
[2018-12-22] MEDS: INSULIN GLARGINE,HUM.REC.ANLOG 1,000 UNIT/10 ML VIAL SUBCUT SCH (10:18)
--- NOTE | 2018-12-22 11:46 | PDOC PROGRESS REPORT ---
Subjective Progress Note for:: 12/22/18 Subjective:: Patient complains of less abdominal pain Reason For Visit: PANCREATIC CANCER Physical Exam Vital Signs: Temp Pulse Resp BP Pulse Ox 100.6 F H 94 18 146/68 H 99 12/22/18 08:00 12/22/18 08:00 12/22/18 08:00 12/22/18 08:00 12/22/18 08:00 Intake & Output 12/21/18 12/22/18 12/23/18 06:59 06:59 06:59 Intake Total 648 519 Output Total 1405 2970 100 Balance -757 -2451 -100 Weight 123.5 kg 118.6 kg General appearance: PRESENT: no acute distress, cooperative Head exam: PRESENT: atraumatic, normocephalic Eye exam: PRESENT: conjunctiva pink, EOMI, PERRLA. ABSENT: scleral icterus Ear exam: PRESENT: normal external ear exam Mouth exam: PRESENT: moist, tongue midline Additional comments: NG present Neck exam: PRESENT: full ROM. ABSENT: carotid bruit, JVD, lymphadenopathy, thyromegaly Respiratory exam: PRESENT: clear to auscultation roman, decreased breath sounds, rhonchi, unlabored Additional comments: Much coughing Cardiovascular exam: PRESENT: RRR. ABSENT: diastolic murmur, rubs, systolic murmur Vascular exam: PRESENT: normal capillary refill GI/Abdominal exam: PRESENT: diminished bowel sounds, hypoactive bowel sounds, s oft, tenderness Additonal comments: Incision clean. No redness or drainage. Rectal exam: PRESENT: deferred Extremities exam: PRESENT: pedal edema Musculoskeletal exam: PRESENT: normal inspection Neurological exam: PRESENT: alert, awake, oriented to person, oriented to place, oriented to time, oriented to situation, CN II-XII grossly intact. ABSENT: motor sensory deficit Additional comments: Vitiligo as noted. Results Laboratory Results: 12/22/18 04:14 12/22/18 04:14 12/21/18 12/22/18 12/22/18 18:55 04:14 04:14 WBC 18.7 H 20.9 H RBC 2.77 L 3.02 L Hgb 7.9 L 8.7 L Hct 24.4 L 26.6 L MCV 88 88 MCH 28.6 28.8 MCHC 32.5 32.7 RDW 14.4 H 14.6 H Plt Count 107 L 141 L Sodium 137.4 Potassium 3.8 Chloride 101 Carbon Dioxide 30 Anion Gap 6 BUN 31 H Creatinine 1.54 H Est GFR ( Amer) 54 L Glucose 210 H Calcium 7.7 L Total Bilirubin 2.9 H AST 40 Alkaline Phosphatase 65 Total Protein 5.1 L Albumin 2.4 L Lipase 243.8 12/18/18 12/19/18 12/20/18 22:08 12:00 11:10 Troponin I 0.059 0.148 0.038 Impressions: Chest X-Ray 12/21/18 06:00 IMPRESSION: Stable appearance of the lungs. Assessment & Plan - Diagnosis (1) Pancreatic malignancy syndrome Is this a current diagnosis for this admission?: Yes Plan: Continue post-op care. Bowels not fully functional. Had to stop TF. Will restart later per surgery. Otherwise routine post op care. Get OOB (2) Post-operative haemorrhage Qualifiers: Surgical complication system/body Area: digestive system Procedure type: digestive system Qualified Code(s): K91.840 - Postprocedural hemorrhage of a digestive system organ or structure following a digestive system procedure Is this a current diagnosis for this admission?: Yes Plan: Resolved (3) Leukocytosis Qualifiers: Leukocytosis type: bandemia Qualified Code(s): D72.825 - Bandemia Is this a current diagnosis for this admission?: Yes Plan: Still hovering in the 18-21K range with no obvious infection. Continue to obs erve and wait on cultures. - Time Time Spent with patient: 35 or more minutes Total Critical Time (Minutes): 35 Level of Care: ICU Medications reviewed and adjusted accordingly: Yes Anticipated discharge: Home Within: Other - When bowel function returns - Inpatient Certification Based on my medical assessment, after consideration of the patient's comorbidities, presenting symptoms, or acuity I expect that the services needed warrant INPATIENT care.: Yes I certify that my determination is in accordance with my understanding of Medicare's requirements for reasonable and necessary INPATIENT services [42 CFR 412.3e].: Yes Medical Necessity: Failure to Improve With Outpatient Therapy, Need Close Monitoring Due to Risk of Patient Decompensation, Need For IV Fluids, Need for Nebulizer Therapy and Monitoring of Response, Need for Pain Control, Need for IV Antibiotics, Need for Surgery, Risk of Complication if Not Cared For in Hospital
[2018-12-22] MEDS: NORMAL SALINE 1000 ML 1,000 ML IV PRN (13:46)
[2018-12-23] MEDS: HYDROMORPHONE HCL INJ/PF 2 MG/ML AMPULE IV PRN ×5 (01:31→23:35)
[2018-12-23] MEDS: METRONIDAZOLE 500 MG/NS RTU 500 MG/100 ML RTUPB IV SCH (01:31)
[2018-12-23 05:05] LABS: ABSOLUTE BASOPHILS # (AUTO) 0.1 10^3/uL (0.0-0.2); ABSOLUTE EOSINOPHILS # (AUTO) 0.3 10^3/uL (0.0-0.6); ABSOLUTE LYMPHOCYTES (AUTO) 1.9 10^3/uL (0.5-4.7); ABSOLUTE MONOCYTES (AUTO) 3.6 10^3/uL (0.1-1.4); ABSOLUTE NEUT (AUTO) 13.3 10^3/uL (1.7-8.2); BASOPHILS % (AUTO) 0.3 % (0-2); EOSINOPHILS % (AUTO) 1.3 % (0-6); HEMATOCRIT 26.2 % (37.9-51.0); HEMOGLOBIN 8.6 g/dL (13.5-17.0); LYMPHOCYTES % (AUTO) 9.8 % (13-45); MEAN CORPUSCULAR HEMOGLOBIN 28.8 pg (27.0-33.4); MEAN CORPUSCULAR HGB CONC 32.7 g/dL (32.0-36.0); MEAN CORPUSCULAR VOLUME 88 fl (80-97); MONOCYTES % (AUTO) 18.8 % (3-13); PLATELET COUNT 186 10^3/uL (150-450); RED BLOOD COUNT 2.97 10^6/uL (4.35-5.55); RED CELL DISTRIBUTION WIDTH 14.7 % (11.5-14.0); SEGMENTED NEUTROPHILS % (AUTO) 69.8 % (42-78); TOTAL CELLS COUNTED % (AUTO) 100 %; WHITE BLOOD COUNT 19.1 10^3/uL (4.0-10.5)
[2018-12-23 05:21] LABS: BLOOD UREA NITROGEN 34 mg/dL (7-20); CALCIUM 7.9 mg/dL (8.4-10.2); GLUCOSE 179 mg/dL (75-110); POTASSIUM 3.8 mmol/L (3.6-5.0)
[2018-12-23 05:27] LABS: CARBON DIOXIDE 34 mmol/L (22-30); CHLORIDE 104 mmol/L (98-107)
[2018-12-23] MEDS: CEFAZOLIN SODIUM 1 GM in DEXTROSE 5%-WATER 50 ML IV SCH (05:30)
[2018-12-23] MEDS: HEPARIN SOD (PORCINE) 5,000 UNIT/ML 1 ML VIAL SUBCUT SCH ×3 (05:31→22:29)
[2018-12-23] MEDS: INSULIN LISPRO 100 UNIT/ML 3 ML VIAL SUBCUT SCH ×3 (05:31→17:31)
[2018-12-23 05:33] LABS: ANION GAP 3 (5-19)
--- NOTE | 2018-12-23 08:22 | PDOC PROGRESS REPORT ---
Subjective Progress Note for:: 12/23/18 Subjective:: feels ok no flatus as yet decreased abd pain Reason For Visit: PANCREATIC CANCER Physical Exam Vital Signs: Temp Pulse Resp BP Pulse Ox 100.2 F 90 17 140/78 H 95 12/22/18 18:00 12/22/18 20:00 12/23/18 06:00 12/23/18 05:47 12/23/18 08:07 Intake & Output 12/22/18 12/23/18 12/24/18 06:59 06:59 06:59 Intake Total 519 450 Output Total 2970 2170 Balance -2451 -1720 Weight 118.6 kg 120.1 kg General appearance: PRESENT: no acute distress Head exam: PRESENT: normocephalic Eye exam: PRESENT: EOMI Mouth exam: PRESENT: moist Teeth exam: PRESENT: poor dentation Neck exam: PRESENT: full ROM Respiratory exam: PRESENT: crackles Cardiovascular exam: PRESENT: RRR Pulses: PRESENT: normal femoral pulses, normal dorsalis pedis pul Vascular exam: PRESENT: normal capillary refill GI/Abdominal exam: PRESENT: soft, other - jessy's serous Rectal exam: PRESENT: deferred Extremities exam: PRESENT: full ROM Musculoskeletal exam: PRESENT: full ROM Neurological exam: PRESENT: alert, awake, oriented to person, oriented to place Psychiatric exam: PRESENT: appropriate affect Skin exam: PRESENT: dry Results Laboratory Results: 12/23/18 04:52 12/23/18 04:52 12/23/18 12/23/18 04:52 04:52 WBC 19.1 H RBC 2.97 L Hgb 8.6 L Hct 26.2 L MCV 88 MCH 28.8 MCHC 32.7 RDW 14.7 H Plt Count 186 Seg Neutrophils % 69.8 Sodium 141.1 Potassium 3.8 Chloride 104 Carbon Dioxide 34 H Anion Gap 3 L BUN 34 H Creatinine 1.54 H Est GFR ( Amer) 54 L Glucose 179 H Calcium 7.9 L 12/18/18 12/19/18 12/20/18 22:08 12:00 11:10 Troponin I 0.059 0.148 0.038 Impressions: Chest X-Ray 12/21/18 06:00 IMPRESSION: Stable appearance of the lungs. Assessment & Plan - Diagnosis (1) Pancreatic malignancy syndrome Is this a current diagnosis for this admission?: Yes - Time Time Spent with patient: 25-34 minutes - Plan Summary Plan Summary: doing well still difficulty getting out of bed still with ileus ng bilous plan start tube feeds today cont with pt, out of bed poss tx to reg floor in am
[2018-12-23] MEDS ORDERED: VANCOMYCIN HCL 0 MG in DEXTROSE 5%-WATER 250 ML IV NR (09:30)
[2018-12-23] MEDS: NORMAL SALINE 1000 ML 1,000 ML IV PRN (10:04)
[2018-12-23] MEDS: FENTANYL CITRATE INJ/PF 100 MCG/2 ML AMPUL IV PRN (10:04)
--- NOTE | 2018-12-23 10:05 | RADIOLOGY REPORT (SQ) ---
EXAM DESCRIPTION: CHEST SINGLE VIEW COMPLETED DATE/TIME: 12/23/2018 9:49 am REASON FOR STUDY: pneumonia COMPARISON: AP view of the chest from 12/21/2018. EXAM PARAMETERS: NUMBER OF VIEWS: One view. TECHNIQUE: Single frontal radiographic view of the chest acquired. RADIATION DOSE: NA LIMITATIONS: None. FINDINGS: LUNGS AND PLEURA: The dense opacity in the left base that obscures the contour of the left hemidiaphragm and blunts the left costophrenic sulcus is unchanged and could represent a combination of pleural fluid, atelectasis, and/or consolidation. The contralateral costophrenic sulcus is also blunted. There is no pneumothorax. MEDIASTINUM AND HILAR STRUCTURES: Stable mediastinal and hilar contours. HEART AND VASCULAR STRUCTURES: The cardiac silhouette is enlarged. The pulmonary vasculature is with in normal limits given the low inspiratory lung volumes. BONES: No acute findings. HARDWARE: The tip of the enteric tube projects past the gas obscured junction and within the gastric lumen. The tip of the left-sided venous catheter projects within the left brachiocephalic vein. OTHER: No other significant finding. IMPRESSION: Unchanged radiographic appearance of the chest. TECHNICAL DOCUMENTATION: JOB ID: [id number] [employer]- All Rights Reserved Reading location - IP/workstation name: [email or web address]
[2018-12-23 11:37] LABS: ANION GAP 6 (5-19); BLOOD UREA NITROGEN 34 mg/dL (7-20); CALCIUM 7.9 mg/dL (8.4-10.2); CARBON DIOXIDE 32 mmol/L (22-30); CHLORIDE 103 mmol/L (98-107); GLUCOSE 183 mg/dL (75-110); POTASSIUM 3.8 mmol/L (3.6-5.0)
[2018-12-23] MEDS: INSULIN GLARGINE,HUM.REC.ANLOG 1,000 UNIT/10 ML VIAL SUBCUT SCH (12:03)
[2018-12-23] MEDS: MEROPENEM 1 GM in NORMAL SALINE 50 ML IV SCH ×2 (12:04→17:31)
[2018-12-23] MEDS: METOPROLOL TARTRATE 25 MG TABLET NG SCH ×2 (12:04→22:28)
[2018-12-23] MEDS: VANCOMYCIN HCL 1,000 MG in DEXTROSE 5%-WATER 250 ML IV SCH ×2 (12:05→22:28)
--- NOTE | 2018-12-23 12:23 | PDOC PROGRESS REPORT ---
Subjective Progress Note for:: 12/23/18 Subjective:: Critical Care Progress Note Pt has no acute overnight events. C/o heaviness in his chest this am. Reason For Visit: PANCREATIC CANCER Physical Exam Vital Signs: Temp Pulse Resp BP Pulse Ox 99.9 F 87 18 153/70 H 97 12/23/18 08:00 12/23/18 10:00 12/23/18 11:13 12/23/18 11:22 12/23/18 11:22 Intake & Output 12/22/18 12/23/18 12/24/18 06:59 06:59 06:59 Intake Total 552 887 0806 Output Total 2970 2170 255 Balance -2451 -1720 745 Weight 118.6 kg 120.1 kg General appearance: PRESENT: no acute distress, well-developed, well-nourished Respiratory exam: PRESENT: decreased breath sounds, unlabored Cardiovascular exam: PRESENT: RRR GI/Abdominal exam: PRESENT: other - KARIN drains in place Extremities exam: PRESENT: other - edema Skin exam: PRESENT: other - vitiligo Results Laboratory Results: 12/23/18 04:52 12/23/18 10:00 12/23/18 12/23/18 12/23/18 04:52 04:52 10:00 WBC 19.1 H RBC 2.97 L Hgb 8.6 L Hct 26.2 L MCV 88 MCH 28.8 MCHC 32.7 RDW 14.7 H Plt Count 186 Seg Neutrophils % 69.8 Sodium 141.1 140.6 Potassium 3.8 3.8 Chloride 104 103 Carbon Dioxide 34 H 32 H Anion Gap 3 L 6 BUN 34 H 34 H Creatinine 1.54 H 1.53 H Est GFR ( Amer) 54 L 55 L Glucose 179 H 183 H Calcium 7.9 L 7.9 L 12/18/18 12/19/18 12/20/18 22:08 12:00 11:10 Troponin I 0.059 0.148 0.038 Impressions: Chest X-Ray 12/23/18 00:00 IMPRESSION: Unchanged radiographic appearance of the chest. Assessment & Plan - Diagnosis (1) Pancreatic malignancy syndrome Is this a current diagnosis for this admission?: Yes (2) Post-operative haemorrhage Qualifiers: Surgical complication system/body Area: digestive system Procedure type: digestive system Qualified Code(s): K91.840 - Postprocedural hemorrhage of a digestive system organ or structure following a digestive system procedure Is this a current diagnosis for this admission?: Yes (3) Cirrhosis of liver Qualifiers: Hepatic cirrhosis type: unspecified hepatic cirrhosis Ascites presence: without ascites Qualified Code(s): K74.60 - Unspecified cirrhosis of liver Is this a current diagnosis for this admission?: Yes (4) Acute blood loss as cause of postoperative anemia Is this a current diagnosis for this admission?: Yes (5) CKD (chronic kidney disease), stage III Is this a current diagnosis for this admission?: Yes (6) Coronary artery disease Qualifiers: Coronary Disease-Associated Artery/Lesion type: [place] artery [place] vs. transplanted heart: [place] heart Associated angina: angina presence unspecified Qualified Code(s): I25.10 - Atherosclerotic heart disease of [place] coronary artery without angina pectoris Is this a current diagnosis for this admission?: Yes (7) Diabetes mellitus type 2 in obese Is this a current diagnosis for this admission?: Yes (8) Vitiligo Is this a current diagnosis for this admission?: Yes (9) HCAP (healthcare-associated pneumonia) Is this a current diagnosis for this admission?: Yes (10) Sepsis Qualifiers: Sepsis type: sepsis due to unspecified organism Sepsis acute organ dysfunction status: with acute organ dysfunction Is this a current diagnosis for this admission?: Yes - Time Time Spent with patient: 25-34 minutes Level of Care: ICU Provider Note Provider Note: Assessment: critically ill 68 yo man with pancreatic cancer, s/p pancreatectomy on 12/18, hemoperitoneum s/p ex-lap on 12/18, hemorraghic shock, acute blood loss anemia,acute respiratory failure, HCAP, sepsis, CAD, DM, cirrhosis, CKD Plan: 1. Respiratory: acute respiratory failure, resolved. Pt extubated on 12/22. Stable on nasal cannula. Wean to RA as tolerated 2. Pulmonary: HCAP. Will start vanc and meropenem. 3. CV: CAD. Dr. Gladys yousif. Pt to be started on lopressor 4. Surgery:pancreatic cancer, s/p pancreatectomy on 12/18, hemoperitoneum s/p ex-lap on 12/18. Care per surgery 6. ID: HCAP, sepsis, recent intraadominal surgery. Leukocytosis. Start vanc and meropenem. Repeat cultures 7. Heme: hemorrhagic shock, acute blood loss anemia. No further signs of bleeding.Hg is acceptable at 8.9. 8. Nutrition: tube feeds at low rate per surgery 9. Endocrine: DM. Accuchecks, SSI, Lantus 10. Prophylaxis: sq heparin 11. PT/OT consulted 12. Continue to monitor in ICU
--- NOTE | 2018-12-23 19:33 | Progress Note ---
Provider Note Provider Note: CARDIOLOGY PROGRESS NOTE by Dr. kahn assessment on 12/22/2018. Subjective: The patient denies any anginal symptoms. There is no shortness of breath. There is no PND orthopnea. He does have incisional abdominal pain. The patient has not passed flatus. He is still n.p.o. He does have an NG tube in situ. There is no TIA CVA symptoms. There is no atrial or ventricular arrhythmia seen on the monitor. The patient does not appear to be short of breath. PHYSICAL EXAMINATION: The patient is moderately obese. In no acute distress. He is well-groomed. Selected Entries 12/22/18 12/22/18 13:48 14:00 Temperature 100.8 F H Temperature Core Source Core 101.1 F H Temperature Pulse Rate 92 Heart Rate ( 91 Monitors) Respiratory 13 14 Rate Blood Pressure 129/71 H Blood Pressure 129/71 H [Left] Blood Pressure 90 Mean Blood Pressure 90 Mean [Left] O2 Sat by Pulse 96 97 Oximetry Oxygen Flow 3 Rate HEAD: Is atraumatic normocephalic. EYES: Pupils equal round regular reactive to light and accommodation. Extraocular movements are normal. There is no conjunctival pallor. There is no scleral icterus. EARS: Tympanic membranes are intact. External auditory canals are clear. NOSE: There is no inflammation of the nasal mucous membrane. There is no deviated nasal septum. MOUTH: Mucous membranes of the mouth are moist. There is an NG tube in situ. There is no bleeding from the gums. THROAT: There is no redness of the oropharynx. There is no exudates. SKIN: There is no skin rashes. 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 There is no particular ecchymosis. NECK: Is supple. There is no hepatospleno megaly. There is no lymphadenopathy. There is no goiter. There is no accessory muscles of respiration use. Trachea central. LUNGS: Is clear to auscultation percussion. There is no rhonchi rales or wheezing. HEART: S1-S2 is heard. S1 is of normal intensity. There is no S3 gallop there is no S4 gallop. There is systolic murmur left sternal border and the apex there is no rub. ABDOMEN: Is mildly distended. Soft. There is tenderness over the incision. The abdominal dressing is dry and clean. Bowel sounds are absent. EXTREMITIES: Femorals are slightly diminished. There is no femoral bruits. Leg pulses are well felt. There is no pedal edema. There is no DVT or cellulitis. POTTER OR CERAMIC ARTIST: The patient is conscious awake alert oriented x3 with no focal deficits. PSYCHIATRIC: Patient judgment insight are intact his affect is normal. Labs- All tests 24 hr 12/21/18 12/22/18 12/22/18 23:52 04:14 04:14 WBC 20.9 H RBC 3.02 L Hgb 8.7 L Hct 26.6 L MCV 88 MCH 28.8 MCHC 32.7 RDW 14.6 H Plt Count 141 L Sodium 137.4 Potassium 3.8 Chloride 101 Carbon Dioxide 30 Anion Gap 6 BUN 31 H Creatinine 1.54 H Est GFR ( Amer) 54 L Est GFR (MDRD) Non-Af 45 L Glucose 210 H POC Glucose 231 H Calcium 7.7 L Total Bilirubin 2.9 H Direct Bilirubin 2.3 H Neonat Total Bilirubin Not Reportable Neonat Direct Bilirubin Not Reportable Neonat Indirect Bili Not Reportable AST 40 ALT 15 Alkaline Phosphatase 65 Total Protein 5.1 L Albumin 2.4 L Lipase 243.8 12/22/18 12/22/18 12/22/18 04:53 09:59 12:11 WBC RBC Hgb Hct MCV MCH MCHC RDW Plt Count Sodium Potassium Chloride Carbon Dioxide Anion Gap BUN Creatinine Est GFR ( Amer) Est GFR (MDRD) Non-Af Glucose POC Glucose 213 H 215 H 211 H Calcium Total Bilirubin Direct Bilirubin Neonat Total Bilirubin Neonat Direct Bilirubin Neonat Indirect Bili AST ALT Alkaline Phosphatase Total Protein Albumin Lipase 12/22/18 16:46 WBC RBC Hgb Hct MCV MCH MCHC RDW Plt Count Sodium Potassium Chloride Carbon Dioxide Anion Gap BUN Creatinine Est GFR ( Amer) Est GFR (MDRD) Non-Af Glucose POC Glucose 230 H Calcium Total Bilirubin Direct Bilirubin Neonat Total Bilirubin Neonat Direct Bilirubin Neonat Indirect Bili AST ALT Alkaline Phosphatase Total Protein Albumin Lipase Chest X-Ray 12/18/18 00:00 IMPRESSION: Support lines and tubes have been placed as described. Chest X-Ray 12/18/18 00:00 IMPRESSION: Lines and catheters in place, as above.. Probable tiny bibasilar effusions copyright 2011 [employer]- All Rights Reserved Chest X-Ray 12/19/18 00:00 IMPRESSION: 1. No significant interval changes since examination performed earlier on the same date, 12/19/2018. No evidence of pneumothorax. 2. Support tubes and line are unchanged. Chest X-Ray 12/19/18 06:00 IMPRESSION: STABLE APPEARANCE OF THE CHEST. SUPPORT DEVICES UNCHANGED. Chest X-Ray 12/20/18 06:00 IMPRESSION: 1. Tubes and lines as above. 2. Unchanged radiographic appearance of the chest with low inspiratory lung volumes, a probable left retrocardiac opacity, and mild cardiomegaly. Chest X-Ray 12/21/18 06:00 IMPRESSION: Stable appearance of the lungs. IMPRESSION/RECOMMENDATION: 1. A small non-ST elevation [place] cannot be entirely excluded. Patient without anginal symptoms. In the troponins trended down. Once the patient started on p.o. intake then we will start the patient on beta-joan. Later we will start the patient on aspirin. 2. Status post Whipple procedure complicated by postoperative bleeding, redo surgery, and cardiac arrest, and massive blood transfusions. At present patient stable. 3. Coronary artery disease. History of LAD stent in 2012: No anginal symptoms. 4. Hypertension: Blood pressure well controlled 5. Diabetes mellitus: Continue Accu-Cheks and sliding insulin scale coverage. 6. Chronic kidney disease: Appears to be stable avoid nephrotoxic drugs 7. History of depression: At present clinically the patient does not appear to be depressed. 8. Posttraumatic stress disorder: Stable. Occasions reviewed. Medication regimen and management plan discussed with the it senior analyst on the case. Medical decision making is of moderate complexity. 40 minutes spent on this patient more than 50% of the time spent in direct patient care. Will follow
--- NOTE | 2018-12-23 19:36 | Progress Note ---
Provider Note Provider Note: CARDIOLOGY PROGRESS NOTE by Dr. Yulia Ramos on 12/23/2018. SUBJECTIVE: The patient denies any anginal symptoms. There is no shortness of breath. There is no PND orthopnea. There is no arrhythmia seen on the monitor. There is no TIA CVA symptoms. His abdominal incisional pain is well controlled. The patient be started on tube feedings. PHYSICAL EXAMINATION: The patient is moderately obese. In no acute distress. He is well-groomed. Selected Entries 12/23/18 12/23/18 12/23/18 08:07 08:40 10:00 Core 99.9 F Temperature Pulse Rate 87 Heart Rate ( 86 Monitors) Respiratory 12 16 Rate Blood Pressure 144/64 H [Left] Blood Pressure 90 Mean [Left] O2 Sat by Pulse 95 98 Oximetry Oxygen Delivery Nasal Cannula Nasal Cannula Method ( includes room air) Oxygen Flow 3 Rate HEAD: Is atraumatic normocephalic. EYES: Pupils equal round regular reactive to light and accommodation. Extraocular movements are normal. There is no conjunctival pallor. There is no scleral icterus. EARS: Tympanic membranes are intact. External auditory canals are clear. NOSE: There is no inflammation of the nasal mucous membrane. There is no deviated nasal septum. MOUTH: Mucous membranes of the mouth are moist. There is an NG tube in situ. There is no bleeding from the gums. THROAT: There is no redness of the oropharynx. There is no exudates. SKIN: There is no skin rashes. 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 There is no particular ecchymosis. NECK: Is supple. There is no hepatospleno megaly. There is no lymphadenopathy. There is no goiter. There is no accessory muscles of respiration use. Trachea central. LUNGS: Is clear to auscultation percussion. There is no rhonchi rales or wheezing. HEART: S1-S2 is heard. S1 is of normal intensity. There is no S3 gallop there is no S4 gallop. There is systolic murmur left sternal border and the apex there is no rub. ABDOMEN: Is mildly distended. Soft. There is tenderness over the incision. The abdominal dressing is dry and clean. Bowel sounds are absent. EXTREMITIES: Femorals are slightly diminished. There is no femoral bruits. Leg pulses are well felt. There is no pedal edema. There is no DVT or cellulitis. SUPERVISOR WINDING DEPARTMENT: The patient is conscious awake alert oriented x3 with no focal deficits. PSYCHIATRIC: Patient judgment insight are intact his affect is normal. Labs- All tests 24 hr 12/22/18 12/23/18 12/23/18 23:41 04:52 04:52 WBC 19.1 H RBC 2.97 L Hgb 8.6 L Hct 26.2 L MCV 88 MCH 28.8 MCHC 32.7 RDW 14.7 H Plt Count 186 Lymph % (Auto) 9.8 L Leon % (Auto) 18.8 H Eos % (Auto) 1.3 Baso % (Auto) 0.3 Absolute Neuts (auto) 13.3 H Absolute Lymphs (auto) 1.9 Absolute Monos (auto) 3.6 H Absolute Eos (auto) 0.3 Absolute Basos (auto) 0.1 Seg Neutrophils % 69.8 Sodium 141.1 Potassium 3.8 Chloride 104 Carbon Dioxide 34 H Anion Gap 3 L BUN 34 H Creatinine 1.54 H Est GFR ( Amer) 54 L Est GFR (MDRD) Non-Af 45 L Glucose 179 H POC Glucose 226 H Calcium 7.9 L 12/23/18 12/23/18 12/23/18 05:24 10:00 17:20 WBC RBC Hgb Hct MCV MCH MCHC RDW Plt Count Lymph % (Auto) Leon % (Auto) Eos % (Auto) Baso % (Auto) Absolute Neuts (auto) Absolute Lymphs (auto) Absolute Monos (auto) Absolute Eos (auto) Absolute Basos (auto) Seg Neutrophils % Sodium 140.6 Potassium 3.8 Chloride 103 Carbon Dioxide 32 H Anion Gap 6 BUN 34 H Creatinine 1.53 H Est GFR ( Amer) 55 L Est GFR (MDRD) Non-Af 45 L Glucose 183 H POC Glucose 177 H 253 H Calcium 7.9 L Chest X-Ray 12/18/18 00:00 IMPRESSION: Support lines and tubes have been placed as described. Chest X-Ray 12/18/18 00:00 IMPRESSION: Lines and catheters in place, as above.. Probable tiny bibasilar effusions copyright 2010 [employer]- All Rights Reserved Chest X-Ray 12/19/18 00:00 IMPRESSION: 1. No significant interval changes since examination performed earlier on the same date, 12/19/2018. No evidence of pneumothorax. 2. Support tubes and line are unchanged. Chest X-Ray 12/19/18 06:00 IMPRESSION: STABLE APPEARANCE OF THE CHEST. SUPPORT DEVICES UNCHANGED. Chest X-Ray 12/20/18 06:00 IMPRESSION: 1. Tubes and lines as above. 2. Unchanged radiographic appearance of the chest with low inspiratory lung volumes, a probable left retrocardiac opacity, and mild cardiomegaly. Chest X-Ray 12/21/18 06:00 IMPRESSION: Stable appearance of the lungs. Chest X-Ray 12/23/18 00:00 IMPRESSION: Unchanged radiographic appearance of the chest. IMPRESSION/RECOMMENDATION: 1. A small non-ST elevation [place] cannot be entirely excluded. Patient without anginal symptoms. In the troponins trended down. The patient has been started on tube feedings. Hence we will start the patient on Lopressor 25 mg p.o. every 12 hours by the NG tube and increase as tolerated. Later we will start the patient on aspirin. We will repeat EKG in the a.m. 2. Status post Whipple procedure complicated by postoperative bleeding, redo surgery, and cardiac arrest, and massive blood transfusions. At present patient stable. 3. Coronary artery disease. History of LAD stent in 2013: No anginal symptoms. 4. Hypertension: Blood pressure well controlled 5. Diabetes mellitus: Continue Accu-Cheks and sliding insulin scale coverage. 6. Chronic kidney disease: Appears to be stable avoid nephrotoxic drugs 7. History of depression: At present clinically the patient does not appear to be depressed. 8. Posttraumatic stress disorder: Stable. Medications reviewed. Medications added. Medication regimen and management plan discussed with the clinical trial associate. Medical decision making is of high complexity in view of the need for adding new medications. 40 minutes spent on the patient more than 50% of time spent in direct patient care. Will follow.
[2018-12-23 21:32] LABS: VANCOMYCIN,TROUGH 8.4 ug/mL (5.0-20.0)
[2018-12-23] MEDS ORDERED: METOPROLOL TARTRATE 25 MG TABLET NG SCH (22:00)
[2018-12-24] MEDS: INSULIN LISPRO 100 UNIT/ML 3 ML VIAL SUBCUT SCH ×4 (01:32→17:18)
[2018-12-24] MEDS: MEROPENEM 1 GM in NORMAL SALINE 50 ML IV SCH ×3 (02:54→17:18)
[2018-12-24] MEDS: HYDROMORPHONE HCL INJ/PF 2 MG/ML AMPULE IV PRN ×4 (04:36→21:48)
[2018-12-24] MEDS: HEPARIN SOD (PORCINE) 5,000 UNIT/ML 1 ML VIAL SUBCUT SCH ×3 (06:17→21:49)
[2018-12-24 06:47] LABS: HEMATOCRIT 26.7 % (37.9-51.0); HEMOGLOBIN 8.7 g/dL (13.5-17.0); MEAN CORPUSCULAR HEMOGLOBIN 28.8 pg (27.0-33.4); MEAN CORPUSCULAR HGB CONC 32.6 g/dL (32.0-36.0); MEAN CORPUSCULAR VOLUME 89 fl (80-97); PLATELET COUNT 216 10^3/uL (150-450); RED BLOOD COUNT 3.01 10^6/uL (4.35-5.55); RED CELL DISTRIBUTION WIDTH 14.4 % (11.5-14.0); WHITE BLOOD COUNT 18.2 10^3/uL (4.0-10.5)
[2018-12-24 07:07] LABS: ANION GAP 5 (5-19); BLOOD UREA NITROGEN 34 mg/dL (7-20); CARBON DIOXIDE 34 mmol/L (22-30); CHLORIDE 107 mmol/L (98-107); GLUCOSE 250 mg/dL (75-110); POTASSIUM 3.8 mmol/L (3.6-5.0)
[2018-12-24 07:10] LABS: ABSOLUTE MONOCYTES # (MANUAL) 2.4 10^3/uL (0.1-1.4); BASOPHILS % (MANUAL) 0 % (0-2); EOSINOPHILS % (MANUAL) 0 % (0-6); LYMPHOCYTES % (MANUAL) 11 % (13-45); MONOCYTES % (MANUAL) 13 % (3-13); NUCLEATED RED BLOOD CELLS 3 /100 WBC (0); SEGMENTED NEUTROPHILS % (MAN) 76 % (42-78); TOTAL CELLS COUNTED 100
[2018-12-24 07:11] LABS: ANISOCYTOSIS SLIGHT; HYPOCHROMASIA 2+
[2018-12-24 07:12] LABS: PLATELET COMMENT ADEQUATE
--- NOTE | 2018-12-24 07:40 | EKG REPORT ---
SEVERITY:- ABNORMAL ECG - SINUS RHYTHM VENTRICULAR PREMATURE COMPLEX BORDERLINE LEFT AXIS DEVIATION NONSPECIFIC T ABNORMALITIES, LATERAL LEADS PROLONGED QT INTERVAL : Confirmed by: Quinn Anderson MD 24-Dec-2018 07:39:36
--- NOTE | 2018-12-24 07:57 | PDOC PROGRESS REPORT ---
Subjective Progress Note for:: 12/24/18 Subjective:: feels better, less abd pain Reason For Visit: PANCREATIC CANCER Physical Exam Vital Signs: Temp Pulse Resp BP Pulse Ox 98.0 F 91 16 141/86 H 99 12/24/18 06:00 12/23/18 22:00 12/24/18 06:20 12/24/18 05:48 12/24/18 06:20 Intake & Output 12/23/18 12/24/18 12/25/18 06:59 06:59 06:59 Intake Total 450 1720 Output Total 2170 2485 Balance -1720 -765 Weight 120.1 kg 118.6 kg General appearance: PRESENT: no acute distress Head exam: PRESENT: normocephalic Eye exam: PRESENT: EOMI Ear exam: PRESENT: normal external ear exam Mouth exam: PRESENT: moist Neck exam: PRESENT: full ROM Respiratory exam: PRESENT: clear to auscultation roman Cardiovascular exam: PRESENT: RRR Pulses: PRESENT: +1 pedal pulses bilateral, +2 pedal pulses bilateral GI/Abdominal exam: PRESENT: soft, other - jessy's serous Extremities exam: PRESENT: full ROM Musculoskeletal exam: PRESENT: full ROM Neurological exam: PRESENT: alert, awake, oriented to person, oriented to place, oriented to time, oriented to situation Psychiatric exam: PRESENT: appropriate affect Skin exam: PRESENT: dry Results Laboratory Results: 12/24/18 06:00 12/24/18 06:00 12/23/18 12/24/18 12/24/18 10:00 06:00 06:00 WBC 18.2 H RBC 3.01 L Hgb 8.7 L Hct 26.7 L MCV 89 MCH 28.8 MCHC 32.6 RDW 14.4 H Plt Count 216 Seg Neutrophils % Not Reportable Sodium 140.6 146.4 H Potassium 3.8 3.8 Chloride 103 107 Carbon Dioxide 32 H 34 H Anion Gap 6 5 BUN 34 H 34 H Creatinine 1.53 H 1.27 H Est GFR ( Amer) 55 L > 60 Glucose 183 H 250 H Calcium 7.9 L 8.0 L 12/21/18 18:20 Sputum Gram Stain - Final 12/21/18 18:20 Sputum Sputum Culture - Final Mrsa (Meth Resis Staph Aureus) Normal Bea 12/18/18 12/19/18 12/20/18 22:08 12:00 11:10 Troponin I 0.059 0.148 0.038 Impressions: Chest X-Ray 12/23/18 00:00 IMPRESSION: Unchanged radiographic appearance of the chest. Assessment & Plan - Diagnosis (1) Pancreatic malignancy syndrome Is this a current diagnosis for this admission?: Yes - Time Time Spent with patient: 25-34 minutes - Plan Summary Plan Summary: doing better +mrsa in suptum, started on vanco meropenum yesterday wbc trending down 18k h/h stable slowely improving mobility, out of bed yesterday to;l tube feeds at 10cc/hr plan increase tubefeeds start clamping ng tube increase activity out of bed poss tx to reg floor later today or in am.
[2018-12-24] MEDS: 1/2 NORMAL SALINE 1,000 ML IV PRN (09:25)
[2018-12-24] MEDS: METOPROLOL TARTRATE 25 MG TABLET NG SCH ×2 (09:26→21:49)
[2018-12-24] MEDS: INSULIN GLARGINE,HUM.REC.ANLOG 1,000 UNIT/10 ML VIAL SUBCUT SCH (09:26)
[2018-12-24] MEDS: VANCOMYCIN HCL 1,000 MG in DEXTROSE 5%-WATER 250 ML IV SCH ×2 (09:26→21:57)
--- NOTE | 2018-12-24 09:29 | PDOC PROGRESS REPORT ---
Subjective Progress Note for:: 12/24/18 Subjective:: Critical Care Progress Note. Pt continues to complain of chest discomfort. Reason For Visit: PANCREATIC CANCER Physical Exam Vital Signs: Temp Pulse Resp BP Pulse Ox 98.8 F 92 16 154/68 H 98 12/24/18 08:00 12/24/18 08:00 12/24/18 08:00 12/24/18 08:00 12/24/18 08:00 Intake & Output 12/23/18 12/24/18 12/25/18 06:59 06:59 06:59 Intake Total 450 1720 Output Total 2170 2485 0 Balance -1720 -765 0 Weight 120.1 kg 118.6 kg General appearance: PRESENT: no acute distress, well-developed, well-nourished Respiratory exam: PRESENT: decreased breath sounds, unlabored Cardiovascular exam: PRESENT: RRR GI/Abdominal exam: PRESENT: other - midline insicion bandaged, KARIN drain in place Extremities exam: PRESENT: other - edema Skin exam: PRESENT: other - vitiligo Results Laboratory Results: 12/24/18 06:00 12/24/18 06:00 12/23/18 12/24/18 12/24/18 10:00 06:00 06:00 WBC 18.2 H RBC 3.01 L Hgb 8.7 L Hct 26.7 L MCV 89 MCH 28.8 MCHC 32.6 RDW 14.4 H Plt Count 216 Seg Neutrophils % Not Reportable Sodium 140.6 146.4 H Potassium 3.8 3.8 Chloride 103 107 Carbon Dioxide 32 H 34 H Anion Gap 6 5 BUN 34 H 34 H Creatinine 1.53 H 1.27 H Est GFR ( Amer) 55 L > 60 Glucose 183 H 250 H Calcium 7.9 L 8.0 L 12/21/18 18:20 Sputum Gram Stain - Final 12/21/18 18:20 Sputum Sputum Culture - Final Mrsa (Meth Resis Staph Aureus) Normal Bea 12/18/18 12/19/18 12/20/18 22:08 12:00 11:10 Troponin I 0.059 0.148 0.038 Impressions: Chest X-Ray 12/23/18 00:00 IMPRESSION: Unchanged radiographic appearance of the chest. Assessment & Plan - Diagnosis (1) Pancreatic malignancy syndrome Is this a current diagnosis for this admission?: Yes (2) Cirrhosis of liver Qualifiers: Hepatic cirrhosis type: unspecified hepatic cirrhosis Ascites presence: without ascites Qualified Code(s): K74.60 - Unspecified cirrhosis of liver Is this a current diagnosis for this admission?: Yes (3) Acute blood loss as cause of postoperative anemia Is this a current diagnosis for this admission?: Yes (4) Sepsis Qualifiers: Sepsis type: sepsis due to unspecified organism Sepsis acute organ dysfunction status: with acute organ dysfunction Is this a current diagnosis for this admission?: Yes (5) MRSA pneumonia Qualifiers: Lung location: unspecified part of lung Is this a current diagnosis for this admission?: Yes - Time Time Spent with patient: 25-34 minutes Level of Care: ICU Provider Note Provider Note: Assessment: critically ill 68 yo man with pancreatic cancer, s/p distal pancreatectomy and 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 Respiratory: acute respiratory failure, resolved. Pt extubated on 12/22. Stable on 2liters nasal cannula. Wean to RA as tolerated 2. Pulmonary: MRSA PNA. Day 2vanc and meropenem. 3. CV: CAD,HTN. Dr. Graham following. On lopressor 4. Surgery:pancreatic cancer, s/p distal pancreatectomy and splenectomy on 12/18, hemoperitoneum s/p ex-lap on 12/18. Care per surgery 6. ID: MRSA PNA, sepsis, recent intraadominal surgery. Day 2 vanc and meropenem. 7. Heme: hemorrhagic shock, resolved. acute blood loss anemia. No further signs of bleeding.Hg is acceptable at 8.7 8. F/E/N: tube feeds at low rate per surgery. Hypernatremia. Will change IVF to 1/2 NS 9. Endocrine: DM. Accuchecks, SSI, lantus 10. Prophylaxis: sq heparin 11. PT/OT consulted 12. Disposition: stable for transfer out of ICU
--- NOTE | 2018-12-24 19:33 | Progress Note ---
Provider Note Provider Note: CARDIOLOGY PROGRESS NOTE by Dr. Yulia Ramos on 12/24/2018. SUBJECTIVE: The patient denies any chest pain or discomfort. There is no atrial or ventricular arrhythmia seen. There is no shortness of breath. There is no PND orthopnea. The patient is tolerating tube feedings. His anterior T wave inversions have resolved although there are mild nonspecific T changes in the lateral leads. The patient has no anginal symptoms. There is no TIA CVA symptoms. The patient's has tested positive for MRSA from his lungs. Physical EXAMINATION: The Patient Is Moderately Obese. In No Acute Distress. Selected Entries 12/24/18 12:00 Temperature 98.9 F Temperature Oral Source Pulse Rate 86 Respiratory 15 Rate Blood Pressure 138/83 H [Right Upper Arm] Blood Pressure 101 Mean [Right Upper Arm] Blood Pressure Supine Position [Right Upper Arm] O2 Sat by Pulse 99 Oximetry Oxygen Delivery Nasal Cannula Method ( includes room air) HEAD: Is atraumatic normocephalic. EYES: Pupils equal round regular reactive to light and accommodation. Extraocular movements are normal. There is no conjunctival pallor. There is no scleral icterus. EARS: Tympanic membranes are intact. External auditory canals are clear. NOSE: There is no inflammation of the nasal mucous membrane. There is no deviated nasal septum. MOUTH: Mucous membranes of the mouth are moist. There is an NG tube in situ. There is no bleeding from the gums. THROAT: There is no redness of the oropharynx. There is no exudates. SKIN: There is no skin rashes. 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 There is no particular ecchymosis. NECK: Is supple. There is no hepatospleno megaly. There is no lymphadenopathy. There is no goiter. There is no accessory muscles of respiration use. Trachea central. LUNGS: Is clear to auscultation percussion. There is no rhonchi rales or wheezing. HEART: S1-S2 is heard. S1 is of normal intensity. There is no S3 gallop there is no S4 gallop. There is systolic murmur left sternal border and the apex there is no rub. ABDOMEN: Is mildly distended. Soft. There is tenderness over the incision. The abdominal dressing is dry and clean. Bowel sounds are heard. EXTREMITIES: Femorals are slightly diminished. There is no femoral bruits. Leg pulses are well felt. There is no pedal edema. There is no DVT or cellulitis. 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 PSYCHIATRIC: Patient judgment insight are intact his affect is normal. EKG: Sinus rhythm. Borderline left axis deviation. Nonspecific minor T changes lateral leads. Anterior T wave inversions have resolved. Borderline QTC prolongation. Labs- All tests 24 hr 12/23/18 12/24/18 12/24/18 20:40 01:24 06:00 WBC 18.2 H RBC 3.01 L Hgb 8.7 L Hct 26.7 L MCV 89 MCH 28.8 MCHC 32.6 RDW 14.4 H Plt Count 216 Lymph % (Auto) Not Reportable [place] % (Auto) Not Reportable Eos % (Auto) Not Reportable Baso % (Auto) Not Reportable Absolute Neuts (auto) Not Reportable Absolute Lymphs (auto) Not Reportable Absolute Monos (auto) Not Reportable Absolute Eos (auto) Not Reportable Absolute Basos (auto) Not Reportable Total Counted 100 Seg Neutrophils % Not Reportable Seg Neuts % (Manual) 76 Lymphocytes % (Manual) 11 L Monocytes % (Manual) 13 Eosinophils % (Manual) 0 Basophils % (Manual) 0 Abs Neuts (Manual) 13.8 H Abs Lymphs (Manual) 2.0 Abs Monocytes (Manual) 2.4 H Absolute Eos (Manual) 0.0 Abs Basophils (Manual) 0.0 Nucleated RBCs 3 Platelet Comment ADEQUATE Hypochromasia 2+ Anisocytosis SLIGHT Sodium Potassium Chloride Carbon Dioxide Anion Gap BUN Creatinine Est GFR ( Amer) Est GFR (MDRD) Non-Af Glucose POC Glucose 255 H Calcium Time Trough Drawn 2039 Vancomycin Trough 8.4 12/24/18 12/24/18 12/24/18 06:00 06:05 12:00 WBC RBC Hgb Hct MCV MCH MCHC RDW Plt Count Lymph % (Auto) [place] % (Auto) Eos % (Auto) Baso % (Auto) Absolute Neuts (auto) Absolute Lymphs (auto) Absolute Monos (auto) Absolute Eos (auto) Absolute Basos (auto) Total Counted Seg Neutrophils % Seg Neuts % (Manual) Lymphocytes % (Manual) Monocytes % (Manual) Eosinophils % (Manual) Basophils % (Manual) Abs Neuts (Manual) Abs Lymphs (Manual) Abs Monocytes (Manual) Absolute Eos (Manual) Abs Basophils (Manual) Nucleated RBCs Platelet Comment Hypochromasia Anisocytosis Sodium 146.4 H Potassium 3.8 Chloride 107 Carbon Dioxide 34 H Anion Gap 5 BUN 34 H Creatinine 1.27 H Est GFR ( Amer) > 60 Est GFR (MDRD) Non-Af 56 L Glucose 250 H POC Glucose 274 H 286 H Calcium 8.0 L Time Trough Drawn Vancomycin Trough 12/24/18 17:11 WBC RBC Hgb Hct MCV MCH MCHC RDW Plt Count Lymph % (Auto) [place] % (Auto) Eos % (Auto) Baso % (Auto) Absolute Neuts (auto) Absolute Lymphs (auto) Absolute Monos (auto) Absolute Eos (auto) Absolute Basos (auto) Total Counted Seg Neutrophils % Seg Neuts % (Manual) Lymphocytes % (Manual) Monocytes % (Manual) Eosinophils % (Manual) Basophils % (Manual) Abs Neuts (Manual) Abs Lymphs (Manual) Abs Monocytes (Manual) Absolute Eos (Manual) Abs Basophils (Manual) Nucleated RBCs Platelet Comment Hypochromasia Anisocytosis Sodium Potassium Chloride Carbon Dioxide Anion Gap BUN Creatinine Est GFR ( Amer) Est GFR (MDRD) Non-Af Glucose POC Glucose 249 H Calcium Time Trough Drawn Vancomycin Trough Chest X-Ray 12/18/18 00:00 IMPRESSION: Support lines and tubes have been placed as described. Chest X-Ray 12/18/18 00:00 IMPRESSION: Lines and catheters in place, as above.. Probable tiny bibasilar effusions copyright 2010 [employer]- All Rights Reserved Chest X-Ray 12/19/18 00:00 IMPRESSION: 1. No significant interval changes since examination performed earlier on the same date, 12/19/2018. No evidence of pneumothorax. 2. Support tubes and line are unchanged. Chest X-Ray 12/19/18 06:00 IMPRESSION: STABLE APPEARANCE OF THE CHEST. SUPPORT DEVICES UNCHANGED. Chest X-Ray 12/20/18 06:00 IMPRESSION: 1. Tubes and lines as above. 2. Unchanged radiographic appearance of the chest with low inspiratory lung volumes, a probable left retrocardiac opacity, and mild cardiomegaly. Chest X-Ray 12/21/18 06:00 IMPRESSION: Stable appearance of the lungs. Chest X-Ray 12/23/18 00:00 IMPRESSION: Unchanged radiographic appearance of the chest. IMPRESSION/RECOMMENDATION: 1. A small non-ST elevation PA cannot be entirely excluded. Patient without anginal symptoms. In the troponins trended down. The patient has been started on tube feedings. Hence we will start the patient on Lopressor 25 mg p.o. every 12 hours by the NG tube and increase as tolerated. Later we will start the patient on aspirin. The patient is EKG is much improved. Will later in a day or 2, increase Lopressor to 50 mg p.o. every 12 hours via the NG tube from tomorrow. 2. Status post Whipple procedure complicated by postoperative bleeding, redo surgery, and cardiac arrest, and massive blood transfusions. At present patient stable. 3. Pancreatic cancer. 4.Coronary artery disease. History of LAD stent in 2012: No anginal symptoms. 5. Hypertension: Blood pressure well controlled 6. Diabetes mellitus: Continue Accu-Cheks and sliding insulin scale coverage. 7. Chronic kidney disease: Appears to be stable avoid nephrotoxic drugs 8. History of depression: At present clinically the patient does not appear to be depressed. 9. Posttraumatic stress disorder: Stable. MEDICATIONS reviewed. Medications adjusted. Management plan discussed with the repairer helper.. Medical decision making is of moderate complexity. 40 minutes spent on the patient with more than 50% of time spent in direct patient care. Will follow.
[2018-12-24 22:15] LABS: VANCOMYCIN,TROUGH 15.1 ug/mL (5.0-20.0)
[2018-12-25] MEDS: INSULIN LISPRO 100 UNIT/ML 3 ML VIAL SUBCUT SCH ×5 (00:10→23:43)
[2018-12-25] MEDS: HYDROMORPHONE HCL INJ/PF 2 MG/ML AMPULE IV PRN ×4 (02:04→22:49)
[2018-12-25] MEDS: MEROPENEM 1 GM in NORMAL SALINE 50 ML IV SCH ×3 (02:05→17:10)
[2018-12-25] MEDS: HEPARIN SOD (PORCINE) 5,000 UNIT/ML 1 ML VIAL SUBCUT SCH ×3 (05:08→21:04)
[2018-12-25] MEDS: 1/2 NORMAL SALINE 1,000 ML IV PRN (05:52)
[2018-12-25 06:16] LABS: HEMATOCRIT 27.3 % (37.9-51.0); MEAN CORPUSCULAR HGB CONC 32.8 g/dL (32.0-36.0); MEAN CORPUSCULAR VOLUME 88 fl (80-97); PLATELET COUNT 258 10^3/uL (150-450); RED BLOOD COUNT 3.08 10^6/uL (4.35-5.55); RED CELL DISTRIBUTION WIDTH 14.2 % (11.5-14.0); WHITE BLOOD COUNT 18.7 10^3/uL (4.0-10.5)
[2018-12-25] MEDS ORDERED: HYDROMORPHONE HCL INJ/PF 2 MG/ML AMPULE IV ONE (06:30)
[2018-12-25 06:33] LABS: ANION GAP 5 (5-19); BLOOD UREA NITROGEN 31 mg/dL (7-20); CARBON DIOXIDE 35 mmol/L (22-30); CHLORIDE 107 mmol/L (98-107); GLUCOSE 259 mg/dL (75-110); POTASSIUM 3.7 mmol/L (3.6-5.0)
--- NOTE | 2018-12-25 06:42 | PDOC PROGRESS REPORT ---
Subjective Progress Note for:: 12/25/18 Subjective:: Patient has had increasing abdominal pain tonight along with tachycardia. He has received Dilaudid without little effect. He is wide awake. Reason For Visit: PANCREATIC CANCER Physical Exam Vital Signs: Temp Pulse Resp BP Pulse Ox 100.0 F 91 18 175/95 H 99 12/24/18 20:00 12/24/18 22:00 12/25/18 06:05 12/25/18 06:05 12/25/18 06:05 Intake & Output 12/23/18 12/24/18 12/25/18 06:59 06:59 06:59 Intake Total 450 1770 1366 Output Total 2170 2485 1670 Balance -7520 -301 -074 Weight 120.1 kg 118.6 kg General appearance: PRESENT: no acute distress, cooperative Respiratory exam: PRESENT: clear to auscultation roman Cardiovascular exam: PRESENT: tachycardia GI/Abdominal exam: PRESENT: other - Soft, wound is clean dry and intact with kiarra with no erythema no drainage. There is tenderness at the mid abdomen without peritoneal signs. Drain output appears slightly blood-tinged. Feeding tube is in place. NG tube is currently clamped. Results Laboratory Results: 12/24/18 12/24/18 06:00 06:00 WBC 18.2 H RBC 3.01 L Hgb 8.7 L Hct 26.7 L MCV 89 MCH 28.8 MCHC 32.6 RDW 14.4 H Plt Count 216 Seg Neutrophils % Not Reportable Sodium 146.4 H Potassium 3.8 Chloride 107 Carbon Dioxide 34 H Anion Gap 5 BUN 34 H Creatinine 1.27 H Est GFR ( Amer) > 60 Glucose 250 H Calcium 8.0 L 12/21/18 18:20 Sputum Gram Stain - Final 12/21/18 18:20 Sputum Sputum Culture - Final Mrsa (Meth Resis Staph Aureus) Normal Bea 12/18/18 12/19/18 12/20/18 22:08 12:00 11:10 Troponin I 0.059 0.148 0.038 Impressions: Chest X-Ray 12/23/18 00:00 IMPRESSION: Unchanged radiographic appearance of the chest. Assessment & Plan - Diagnosis (1) Abdominal pain Qualifiers: Abdominal location: epigastric Qualified Code(s): R10.13 - Epigastric pain Is this a current diagnosis for this admission?: Yes Plan: Increasing abdominal pain with new onset tachycardia. I have given him an additional dose of Dilaudid and he appears more comfortable but his tachycardia still persists. Will obtain laboratory studies and abdominal pelvic CT scan with IV and oral contrast via NG. - Time Time Spent with patient: Less than 15 minutes Level of Care: ICU
[2018-12-25 07:07] LABS: ABSOLUTE LYMPHOCYTES# (MANUAL) 2.2 10^3/uL (0.5-4.7); ABSOLUTE MONOCYTES # (MANUAL) 2.2 10^3/uL (0.1-1.4); BASOPHILS % (MANUAL) 0 % (0-2); EOSINOPHILS % (MANUAL) 1 % (0-6); LYMPHOCYTES % (MANUAL) 12 % (13-45); METAMYELOCYTES % (MANUAL) 1 % (0-1); MONOCYTES % (MANUAL) 12 % (3-13); NUCLEATED RED BLOOD CELLS 3 /100 WBC (0); SEGMENTED NEUTROPHILS % (MAN) 74 % (42-78); TOTAL CELLS COUNTED 100
[2018-12-25 07:08] LABS: ANISOCYTOSIS SLIGHT; PLATELET COMMENT ADEQUATE; POLYCHROMASIA SLIGHT
[2018-12-25 07:39] LABS: ALBUMIN 2.5 g/dL (3.5-5.0); ALKALINE PHOSPHATASE 78 U/L (38-126); ASPARTATE AMINO TRANSFERASE 35 U/L (17-59); BILIRUBIN,DIRECT 1.9 mg/dL (0.0-0.4); BILIRUBIN,TOTAL 2.4 mg/dL (0.2-1.3); TOTAL PROTEIN 5.5 g/dL (6.3-8.2)
[2018-12-25] MEDS ORDERED: DEXTROSE 5%-NORMAL SALINE 1,000 ML IV PRN (08:09)
[2018-12-25] MEDS ORDERED: HYDROMORPHONE HCL INJ/PF 2 MG/ML AMPULE IV PRN (08:10)
[2018-12-25] MEDS ORDERED: KETOROLAC TROMETHAMINE INJ/PF 30 MG/1 ML SDV IV SCH (08:15)
--- NOTE | 2018-12-25 08:17 | PDOC PROGRESS REPORT ---
Subjective Progress Note for:: 12/25/18 Subjective:: c/o crampy abd pain passing some flatus no bm wbc 18.7 Reason For Visit: PANCREATIC CANCER Physical Exam Vital Signs: Temp Pulse Resp BP Pulse Ox 98.8 F 91 18 175/95 H 99 12/25/18 04:00 12/24/18 22:00 12/25/18 06:05 12/25/18 06:05 12/25/18 06:05 Intake & Output 12/24/18 12/25/18 12/26/18 06:59 06:59 06:59 Intake Total 1770 1466 Output Total 8437 4642 Balance -715 -432 Weight 118.6 kg 117.9 kg General appearance: PRESENT: no acute distress Head exam: PRESENT: normocephalic Eye exam: PRESENT: EOMI Mouth exam: PRESENT: moist Neck exam: PRESENT: full ROM Respiratory exam: PRESENT: crackles Cardiovascular exam: PRESENT: RRR Pulses: PRESENT: normal femoral pulses, normal dorsalis pedis pul GI/Abdominal exam: PRESENT: soft Rectal exam: PRESENT: deferred Extremities exam: PRESENT: full ROM Neurological exam: PRESENT: altered, awake, oriented to person, oriented to place, oriented to time, oriented to situation Psychiatric exam: PRESENT: appropriate affect Skin exam: PRESENT: dry Results Laboratory Results: 12/25/18 06:00 12/25/18 06:00 12/25/18 12/25/18 06:00 06:00 WBC 18.7 H RBC 3.08 L Hgb 9.0 L Hct 27.3 L MCV 88 MCH 29.0 MCHC 32.8 RDW 14.2 H Plt Count 258 Seg Neutrophils % Not Reportable Sodium 147.2 H Potassium 3.7 Chloride 107 Carbon Dioxide 35 H Anion Gap 5 BUN 31 H Creatinine 1.12 Est GFR ( Amer) > 60 Glucose 259 H Calcium 8.0 L Total Bilirubin 2.4 H AST 35 Alkaline Phosphatase 78 Total Protein 5.5 L Albumin 2.5 L 12/21/18 18:20 Sputum Gram Stain - Final 12/21/18 18:20 Sputum Sputum Culture - Final Mrsa (Meth Resis Staph Aureus) Normal Bea 12/18/18 12/19/18 12/20/18 22:08 12:00 11:10 Troponin I 0.059 0.148 0.038 Impressions: Chest X-Ray 12/23/18 00:00 IMPRESSION: Unchanged radiographic appearance of the chest. Assessment & Plan - Diagnosis (1) Pancreatic malignancy syndrome Is this a current diagnosis for this admission?: Yes - Time Time Spent with patient: 25-34 minutes - Plan Summary Plan Summary: had some increased lower abd pain last pm this am min pain passsing some flatus ng clamping trial- only min amts of residuals pt still lethargic difficult to get out of bed will encourage more activity increase tube feeds to 20cc/h clamp ng dulcolax trending wbc cont iv abx
[2018-12-25] MEDS ORDERED: BISACODYL 10 MG SUPP.RECT PR ONE (09:00)
[2018-12-25] MEDS ORDERED: NORMAL SALINE 1000 ML 1,000 ML IV ONE (09:00)
--- NOTE | 2018-12-25 09:17 | PDOC PROGRESS REPORT ---
Subjective Progress Note for:: 12/25/18 Subjective:: Critical Care Progress Note. Pt c/o increasing abdominal pain. Reason For Visit: PANCREATIC CANCER Physical Exam Vital Signs: Temp Pulse Resp BP Pulse Ox 99.1 F 88 16 169/96 H 99 12/25/18 08:00 12/25/18 08:00 12/25/18 08:00 12/25/18 08:00 12/25/18 08:00 Intake & Output 12/24/18 12/25/18 12/26/18 06:59 06:59 06:59 Intake Total 1770 1466 Output Total 2485 1898 200 Balance -715 -432 -200 Weight 118.6 kg 117.9 kg General appearance: PRESENT: no acute distress, well-developed, well-nourished Head exam: PRESENT: atraumatic, normocephalic Respiratory exam: PRESENT: decreased breath sounds, unlabored Cardiovascular exam: PRESENT: RRR GI/Abdominal exam: PRESENT: other - midline incision bandaged. Extremities exam: PRESENT: pedal edema Skin exam: PRESENT: other - vitiligo Results Laboratory Results: 12/25/18 06:00 12/25/18 06:00 12/25/18 12/25/18 06:00 06:00 WBC 18.7 H RBC 3.08 L Hgb 9.0 L Hct 27.3 L MCV 88 MCH 29.0 MCHC 32.8 RDW 14.2 H Plt Count 258 Seg Neutrophils % Not Reportable Sodium 147.2 H Potassium 3.7 Chloride 107 Carbon Dioxide 35 H Anion Gap 5 BUN 31 H Creatinine 1.12 Est GFR ( Amer) > 60 Glucose 259 H Calcium 8.0 L Total Bilirubin 2.4 H AST 35 Alkaline Phosphatase 78 Total Protein 5.5 L Albumin 2.5 L 12/21/18 18:20 Sputum Gram Stain - Final 12/21/18 18:20 Sputum Sputum Culture - Final Mrsa (Meth Resis Staph Aureus) Normal Bea 12/18/18 12/19/18 12/20/18 22:08 12:00 11:10 Troponin I 0.059 0.148 0.038 Impressions: Chest X-Ray 12/23/18 00:00 IMPRESSION: Unchanged radiographic appearance of the chest. Assessment & Plan - Diagnosis (1) Pancreatic malignancy syndrome Is this a current diagnosis for this admission?: Yes (2) Cirrhosis of liver Qualifiers: Hepatic cirrhosis type: unspecified hepatic cirrhosis Ascites presence: without ascites Qualified Code(s): K74.60 - Unspecified cirrhosis of liver Is this a current diagnosis for this admission?: Yes (3) Acute blood loss as cause of postoperative anemia Is this a current diagnosis for this admission?: Yes (4) Sepsis Qualifiers: Sepsis type: sepsis due to unspecified organism Sepsis acute organ dysfunction status: with acute organ dysfunction Is this a current diagnosis for this admission?: Yes (5) MRSA pneumonia Qualifiers: Lung location: unspecified part of lung Is this a current diagnosis for this admission?: Yes - Time Time Spent with patient: 15-24 minutes Level of Care: ICU Provider Note Provider Note: Assessment: 68 yo man with pancreatic cancer, s/p distal pancreatectomy and 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 Respiratory: acute respiratory failure, resolved. Pt extubated on 12/22. Stable on 2liters nasal cannula. Wean to RA as tolerated 2. Pulmonary: MRSA PNA. Day 3 vanc and meropenem. 3. CV: CAD,HTN. Dr. Graham following. On lopressor 4. Surgery:pancreatic cancer, s/p distal pancreatectomy and splenectomy on 12/18, hemoperitoneum s/p ex-lap on 12/18. Care per surgery 6. ID: MRSA PNA, sepsis, recent intraadominal surgery. Day 3 vanc and meropenem. 7. Heme: hemorrhagic shock, resolved. acute blood loss anemia. No further signs of bleeding. Hg is acceptable at 9.0 8. F/E/N: tube feeds at low rate per surgery. Hypernatremia, worsening. Will change IVF to D5W at 50 cc/hour. 9. Endocrine: DM. Accuchecks, SSI, lantus 10. Prophylaxis: sq heparin 11. PT/OT consulted 12. Disposition: awaiting transfer to [facility]
[2018-12-25] MEDS: KETOROLAC TROMETHAMINE INJ/PF 30 MG/1 ML SDV IV SCH ×3 (10:11→21:03)
[2018-12-25] MEDS: INSULIN GLARGINE,HUM.REC.ANLOG 1,000 UNIT/10 ML VIAL SUBCUT SCH (10:12)
[2018-12-25] MEDS: METOPROLOL TARTRATE 25 MG TABLET NG SCH (10:15)
[2018-12-25] MEDS: VANCOMYCIN HCL 1,000 MG in DEXTROSE 5%-WATER 250 ML IV SCH ×2 (10:15→21:05)
--- NOTE | 2018-12-25 11:11 | Progress Note ---
Provider Note Provider Note: CARDIOLOGY PROGRESS NOTE by Dr. Yulia Ramos on 12/25/2018. Subjective: The patient denies any chest pain or discomfort. There is no shortness of breath. There is no PND orthopnea. There is no atrial or ventricular arrhythmias seen. There is no TIA CVA symptoms. The patient states he still passing flatus. PHYSICAL EXAMINATION: The patient is moderately obese. In no acute distress. He is well-groomed Selected Entries 12/25/18 08:00 Temperature 99.1 F Temperature Axillary Source Pulse Rate 88 Respiratory 16 Rate Blood Pressure 169/96 H [Right Upper Arm] Blood Pressure 120 Mean [Right Upper Arm] Blood Pressure Supine Position [Right Upper Arm] O2 Sat by Pulse 99 Oximetry Oxygen Delivery Nasal Cannula Method ( includes room air) HEAD: Is atraumatic normocephalic. EYES: Pupils equal round regular reactive to light and accommodation. Extraocular movements are normal. There is no conjunctival pallor. There is no scleral icterus. EARS: Tympanic membranes are intact. External auditory canals are clear. NOSE: There is no inflammation of the nasal mucous membrane. There is no deviated nasal septum. MOUTH: Mucous membranes of the mouth are moist. There is an NG tube in situ. There is no bleeding from the gums. THROAT: There is no redness of the oropharynx. There is no exudates. SKIN: There is no skin rashes. 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 There is no particular ecchymosis. NECK: Is supple. There is no hepatospleno megaly. There is no lymphadenopathy. There is no goiter. There is no accessory muscles of respiration use. Trachea central. LUNGS: Is clear to auscultation percussion. There is no rhonchi rales or wheezing. HEART: S1-S2 is heard. S1 is of normal intensity. There is no S3 gallop there is no S4 gallop. There is systolic murmur left sternal border and the apex there is no rub. ABDOMEN: Is mildly distended. Soft. There is tenderness over the incision. The abdominal dressing is dry and clean. Bowel sounds are heard. EXTREMITIES: Femorals are slightly diminished. There is no femoral bruits. Leg pulses are well felt. There is no pedal edema. There is no DVT or cellulitis. 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 PSYCHIATRIC: Patient judgment insight are intact his affect is normal. Labs- All tests 24 hr 12/24/18 12/24/18 12/24/18 12:00 17:11 21:35 WBC RBC Hgb Hct MCV MCH MCHC RDW Plt Count Lymph % (Auto) [place] % (Auto) Eos % (Auto) Baso % (Auto) Absolute Neuts (auto) Absolute Lymphs (auto) Absolute Monos (auto) Absolute Eos (auto) Absolute Basos (auto) Total Counted Seg Neutrophils % Seg Neuts % (Manual) Lymphocytes % (Manual) Monocytes % (Manual) Eosinophils % (Manual) Basophils % (Manual) Metamyelocytes % Abs Neuts (Manual) Abs Lymphs (Manual) Abs Monocytes (Manual) Absolute Eos (Manual) Abs Basophils (Manual) Nucleated RBCs Platelet Comment Polychromasia Anisocytosis Sodium Potassium Chloride Carbon Dioxide Anion Gap BUN Creatinine Est GFR ( Amer) Est GFR (MDRD) Non-Af Glucose POC Glucose 286 H 249 H Calcium Total Bilirubin Direct Bilirubin Neonat Total Bilirubin Neonat Direct Bilirubin Neonat Indirect Bili AST ALT Alkaline Phosphatase Total Protein Albumin Time Trough Drawn 2135 Vancomycin Trough 15.1 12/24/18 12/25/18 12/25/18 23:59 05:31 06:00 WBC 18.7 H RBC 3.08 L Hgb 9.0 L Hct 27.3 L MCV 88 MCH 29.0 MCHC 32.8 RDW 14.2 H Plt Count 258 Lymph % (Auto) Not Reportable [place] % (Auto) Not Reportable Eos % (Auto) Not Reportable Baso % (Auto) Not Reportable Absolute Neuts (auto) Not Reportable Absolute Lymphs (auto) Not Reportable Absolute Monos (auto) Not Reportable Absolute Eos (auto) Not Reportable Absolute Basos (auto) Not Reportable Total Counted 100 Seg Neutrophils % Not Reportable Seg Neuts % (Manual) 74 Lymphocytes % (Manual) 12 L Monocytes % (Manual) 12 Eosinophils % (Manual) 1 Basophils % (Manual) 0 Metamyelocytes % 1 Abs Neuts (Manual) 14.0 H Abs Lymphs (Manual) 2.2 Abs Monocytes (Manual) 2.2 H Absolute Eos (Manual) 0.2 Abs Basophils (Manual) 0.0 Nucleated RBCs 3 Platelet Comment ADEQUATE Polychromasia SLIGHT Anisocytosis SLIGHT Sodium Potassium Chloride Carbon Dioxide Anion Gap BUN Creatinine Est GFR ( Amer) Est GFR (MDRD) Non-Af Glucose POC Glucose 239 H 261 H Calcium Total Bilirubin Direct Bilirubin Neonat Total Bilirubin Neonat Direct Bilirubin Neonat Indirect Bili AST ALT Alkaline Phosphatase Total Protein Albumin Time Trough Drawn Vancomycin Trough 12/25/18 06:00 WBC RBC Hgb Hct MCV MCH MCHC RDW Plt Count Lymph % (Auto) [place] % (Auto) Eos % (Auto) Baso % (Auto) Absolute Neuts (auto) Absolute Lymphs (auto) Absolute Monos (auto) Absolute Eos (auto) Absolute Basos (auto) Total Counted Seg Neutrophils % Seg Neuts % (Manual) Lymphocytes % (Manual) Monocytes % (Manual) Eosinophils % (Manual) Basophils % (Manual) Metamyelocytes % Abs Neuts (Manual) Abs Lymphs (Manual) Abs Monocytes (Manual) Absolute Eos (Manual) Abs Basophils (Manual) Nucleated RBCs Platelet Comment Polychromasia Anisocytosis Sodium 147.2 H Potassium 3.7 Chloride 107 Carbon Dioxide 35 H Anion Gap 5 BUN 31 H Creatinine 1.12 Est GFR ( Amer) > 60 Est GFR (MDRD) Non-Af > 60 Glucose 259 H POC Glucose Calcium 8.0 L Total Bilirubin 2.4 H Direct Bilirubin 1.9 H Neonat Total Bilirubin Not Reportable Neonat Direct Bilirubin Not Reportable Neonat Indirect Bili Not Reportable AST 35 ALT 11 Alkaline Phosphatase 78 Total Protein 5.5 L Albumin 2.5 L Time Trough Drawn Vancomycin Trough Chest X-Ray 12/18/18 00:00 IMPRESSION: Support lines and tubes have been placed as described. Chest X-Ray 12/18/18 00:00 IMPRESSION: Lines and catheters in place, as above.. Probable tiny bibasilar effusions copyright 2010 [employer]- All Rights Reserved Chest X-Ray 12/19/18 00:00 IMPRESSION: 1. No significant interval changes since examination performed earlier on the same date, 12/19/2018. No evidence of pneumothorax. 2. Support tubes and line are unchanged. Chest X-Ray 12/19/18 06:00 IMPRESSION: STABLE APPEARANCE OF THE CHEST. SUPPORT DEVICES UNCHANGED. Chest X-Ray 12/20/18 06:00 IMPRESSION: 1. Tubes and lines as above. 2. Unchanged radiographic appearance of the chest with low inspiratory lung volumes, a probable left retrocardiac opacity, and mild cardiomegaly. Chest X-Ray 12/21/18 06:00 IMPRESSION: Stable appearance of the lungs. Chest X-Ray 12/23/18 00:00 IMPRESSION: Unchanged radiographic appearance of the chest. IMPRESSION/RECOMMENDATION: 1. A small non-ST elevation VT cannot be entirely excluded. Patient without anginal symptoms. In the troponins trended down. The patient has been started on tube feedings. Hence we will start the patient on Lopressor 25 mg p.o. every 12 hours by the NG tube and increase as tolerated. Later we will start the patient on aspirin. The patient is EKG is much improved. We will increase Lopressor to 50 mg p.o. every 12 hours via the NG tube from tomorrow. 2. Status post Whipple procedure complicated by postoperative bleeding, redo surgery, and cardiac arrest, and massive blood transfusions. At present patient stable. 3. Pancreatic cancer. 4.Coronary artery disease. History of LAD stent in 2012: No anginal symptoms. 5. Hypertension: Blood pressure well controlled 6. Diabetes mellitus: Continue Accu-Cheks and sliding insulin scale coverage. 7. Chronic kidney disease: Appears to be stable avoid nephrotoxic drugs 8. History of depression: At present clinically the patient does not appear to be depressed. 9. Posttraumatic stress disorder: Stable. MEDICATIONS reviewed. Medications adjusted. Management plan discussed with the rewriter along with the medication changes. Medical decision making is of high complexity in view of the change in medications. 40 minutes spent on the patient with more than 50% of time spent in direct patient care. Will follow. Caps medications reviewed. Medications adjusted. Management plan and medical regimen discussed with the rewriter. Medical decision making is of high complexity in view of the increase in medication changes made. 40 minutes spent on this patient more than 50% of time spent in direct patient care. Will follow.
[2018-12-25] MEDS: METOPROLOL TARTRATE 50 MG TABLET PO SCH (21:17)
[2018-12-25] MEDS ORDERED: METOPROLOL TARTRATE 25 MG TABLET NG SCH (22:00)
[2018-12-26] MEDS: MEROPENEM 1 GM in NORMAL SALINE 50 ML IV SCH ×3 (02:24→18:44)
[2018-12-26] MEDS: KETOROLAC TROMETHAMINE INJ/PF 30 MG/1 ML SDV IV SCH ×4 (04:22→22:13)
[2018-12-26 05:24] LABS: ABSOLUTE EOSINOPHILS # (AUTO) 0.6 10^3/uL (0.0-0.6); ABSOLUTE MONOCYTES (AUTO) 2.6 10^3/uL (0.1-1.4); ABSOLUTE NEUT (AUTO) 11.8 10^3/uL (1.7-8.2); BASOPHILS % (AUTO) 0.2 % (0-2); EOSINOPHILS % (AUTO) 3.6 % (0-6); HEMATOCRIT 27.3 % (37.9-51.0); MEAN CORPUSCULAR HGB CONC 32.8 g/dL (32.0-36.0); MEAN CORPUSCULAR VOLUME 89 fl (80-97); MONOCYTES % (AUTO) 15.2 % (3-13); PLATELET COUNT 268 10^3/uL (150-450); RED BLOOD COUNT 3.09 10^6/uL (4.35-5.55); RED CELL DISTRIBUTION WIDTH 14.8 % (11.5-14.0); TOTAL CELLS COUNTED % (AUTO) 100 %
[2018-12-26 05:36] LABS: BLOOD UREA NITROGEN 29 mg/dL (7-20); CALCIUM 7.7 mg/dL (8.4-10.2); GLUCOSE 231 mg/dL (75-110); POTASSIUM 3.6 mmol/L (3.6-5.0)
[2018-12-26 05:41] LABS: CARBON DIOXIDE 36 mmol/L (22-30); CHLORIDE 105 mmol/L (98-107)
[2018-12-26 05:42] LABS: WHITE BLOOD COUNT 17.1 10^3/uL (4.0-10.5)
[2018-12-26 05:47] LABS: ANION GAP 4 (5-19)
[2018-12-26] MEDS: HEPARIN SOD (PORCINE) 5,000 UNIT/ML 1 ML VIAL SUBCUT SCH ×3 (06:24→22:13)
[2018-12-26] MEDS: INSULIN LISPRO 100 UNIT/ML 3 ML VIAL SUBCUT SCH ×3 (06:28→18:44)
--- NOTE | 2018-12-26 07:43 | PDOC PROGRESS REPORT ---
Subjective Progress Note for:: 12/26/18 Subjective:: feels ok, passing flatus Reason For Visit: PANCREATIC CANCER Physical Exam Vital Signs: Temp Pulse Resp BP Pulse Ox 98.8 F 84 16 154/78 H 100 12/26/18 07:34 12/26/18 07:34 12/26/18 07:34 12/26/18 07:34 12/26/18 07:34 Intake & Output 12/25/18 12/26/18 12/27/18 06:59 06:59 06:59 Intake Total 1766 1410 Output Total 1898 830 Balance -132 580 Weight 117.9 kg 120.4 kg General appearance: PRESENT: no acute distress Head exam: PRESENT: normocephalic Eye exam: PRESENT: EOMI Ear exam: PRESENT: normal external ear exam Mouth exam: PRESENT: moist Neck exam: PRESENT: full ROM Respiratory exam: PRESENT: clear to auscultation roman Cardiovascular exam: PRESENT: RRR Pulses: PRESENT: normal radial pulses, normal femoral pulses Vascular exam: PRESENT: normal capillary refill GI/Abdominal exam: PRESENT: soft Rectal exam: PRESENT: deferred Extremities exam: PRESENT: full ROM Musculoskeletal exam: PRESENT: full ROM Neurological exam: PRESENT: alert, altered, awake, oriented to person, oriented to place Psychiatric exam: PRESENT: appropriate affect Skin exam: PRESENT: dry Results Laboratory Results: 12/26/18 04:57 12/26/18 04:57 12/25/18 12/26/18 12/26/18 06:00 04:57 04:57 WBC 17.1 H RBC 3.09 L Hgb 9.0 L Hct 27.3 L MCV 89 MCH 29.0 MCHC 32.8 RDW 14.8 H Plt Count 268 Seg Neutrophils % 69.0 Sodium 144.9 Potassium 3.6 Chloride 105 Carbon Dioxide 36 H Anion Gap 4 L BUN 29 H Creatinine 1.23 Est GFR ( Amer) > 60 Glucose 231 H Calcium 7.7 L Total Bilirubin 2.4 H AST 35 Alkaline Phosphatase 78 Total Protein 5.5 L Albumin 2.5 L 12/18/18 12/19/18 12/20/18 22:08 12:00 11:10 Troponin I 0.059 0.148 0.038 Impressions: Chest X-Ray 12/23/18 00:00 IMPRESSION: Unchanged radiographic appearance of the chest. Assessment & Plan - Diagnosis (1) Pancreatic malignancy syndrome Is this a current diagnosis for this admission?: Yes - Time Time Spent with patient: 35 or more minutes - Plan Summary Plan Summary: pt doing well post subtotal pancreatectomy for pancreatic cancer passing flatus, no bm still with increased ng residuals curtis tube feeds at 20cc/h wbc trending down to 17kj h/h stable has been gettting up in chair in icu plan tx to micu today increase activity cont iv abx cont tube feeeds awiting return of bowel function.
[2018-12-26] MEDS ORDERED: DEXTROSE 5%-WATER 1000 ML 1,000 ML IV PRN (08:28)
--- NOTE | 2018-12-26 09:28 | PDOC PROGRESS REPORT ---
Subjective Progress Note for:: 12/26/18 Subjective:: Critical Care Progress Note. Pt awaiting transfer out of ICU. Has no new compaints. No new overnight events. Reason For Visit: PANCREATIC CANCER Physical Exam Vital Signs: Temp Pulse Resp BP Pulse Ox 98.8 F 84 16 154/78 H 100 12/26/18 07:34 12/26/18 07:34 12/26/18 07:34 12/26/18 07:34 12/26/18 07:34 Intake & Output 12/25/18 12/26/18 12/27/18 06:59 06:59 06:59 Intake Total 1766 1410 Output Total 1898 830 Balance -132 580 Weight 117.9 kg 120.4 kg General appearance: PRESENT: no acute distress, well-developed, well-nourished Respiratory exam: PRESENT: decreased breath sounds, unlabored Cardiovascular exam: PRESENT: RRR GI/Abdominal exam: PRESENT: soft, other - abdominal binder in place. J-tube in place. Extremities exam: PRESENT: other - edema Skin exam: PRESENT: other - vitiligo Results Laboratory Results: 12/26/18 04:57 12/26/18 04:57 12/26/18 12/26/18 04:57 04:57 WBC 17.1 H RBC 3.09 L Hgb 9.0 L Hct 27.3 L MCV 89 MCH 29.0 MCHC 32.8 RDW 14.8 H Plt Count 268 Seg Neutrophils % 69.0 Sodium 144.9 Potassium 3.6 Chloride 105 Carbon Dioxide 36 H Anion Gap 4 L BUN 29 H Creatinine 1.23 Est GFR ( Amer) > 60 Glucose 231 H Calcium 7.7 L 12/18/18 12/19/18 12/20/18 22:08 12:00 11:10 Troponin I 0.059 0.148 0.038 Impressions: Chest X-Ray 12/23/18 00:00 IMPRESSION: Unchanged radiographic appearance of the chest. Assessment & Plan - Diagnosis (1) Pancreatic malignancy syndrome Is this a current diagnosis for this admission?: Yes (2) Cirrhosis of liver Qualifiers: Hepatic cirrhosis type: unspecified hepatic cirrhosis Ascites presence: without ascites Qualified Code(s): K74.60 - Unspecified cirrhosis of liver Is this a current diagnosis for this admission?: Yes (3) Acute blood loss as cause of postoperative anemia Is this a current diagnosis for this admission?: Yes (4) Sepsis Qualifiers: Sepsis type: sepsis due to unspecified organism Sepsis acute organ dysfunction status: with acute organ dysfunction Is this a current diagnosis for this admission?: Yes (5) MRSA pneumonia Qualifiers: Lung location: unspecified part of lung Is this a current diagnosis for this admission?: Yes - Time Time Spent with patient: 25-34 minutes Level of Care: ICU Provider Note Provider Note: Assessment: 68 yo man with pancreatic cancer, s/p distal pancreatectomy and 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 Respiratory: acute respiratory failure, resolved. Pt extubated on 12/22. Stable on 2liters nasal cannula. Wean to RA as tolerated 2. Pulmonary: MRSA PNA. Day 4 vanc and meropenem. 3. CV: CAD,HTN. Dr. Graham following. Lopressor increased to 50 mg NGT BID 4. Surgery:pancreatic cancer, s/p distal pancreatectomy and splenectomy on 12/18, hemoperitoneum s/p ex-lap on 12/18. Care per surgery 6. ID: MRSA PNA, sepsis, recent intraadominal surgery. Day 4 vanc and meropenem. WBC decreasing 7. Heme: hemorrhagic shock, resolved. acute blood loss anemia. No further signs of bleeding. Hg is acceptable at 9.0 8. F/E/N: tube feeds at low rate per surgery. Hypernatremia, worsening. Will change IVF to D5W at 30 cc/hour. 9. Endocrine: DM. Accuchecks, SSI, lantus 10. Prophylaxis: sq heparin 11. PT/OT consulted. Will get consult for IP rehab 12. Disposition: stable for transfer to telemetry. Dr. Balbuena wants the Hospitalist to continue to follow pt when pt is transfer.
[2018-12-26] MEDS: METOPROLOL TARTRATE 50 MG TABLET PO SCH ×2 (09:30→22:13)
--- NOTE | 2018-12-26 10:14 | Progress Note ---
Provider Note Provider Note: CARDIOLOGY PROGRESS NOTE by Dr. Yulia Ramos on 12/26/2018. SUBJECTIVE: The patient denies any chest pain or discomfort. There is no shortness of breath. There is no PND orthopnea. There is no atrial or ventricular arrhythmia seen on the monitor. The patient is passing flatus. The patient is tolerating tube feedings. He is also tolerating his beta-joan medications. His blood pressure is improved. He has been downgraded to telemetry/IMCU status. There is no TIA CVA symptoms. PHYSICAL EXAMINATION: The patient is moderately obese. In no acute distress. The patient is well-groomed Selected Entries 12/26/18 12/26/18 07:34 08:44 Temperature 98.8 F Temperature Axillary Source Pulse Rate 84 Respiratory 16 Rate Blood Pressure 154/78 H [Right Upper Arm] Blood Pressure 103 Mean [Right Upper Arm] Blood Pressure Supine Position [Right Upper Arm] O2 Sat by Pulse 100 Oximetry Oxygen Delivery Nasal Cannula Method ( includes room air) Fraction of 38 Inspired Oxygen (FIO2) Oxygen Flow 4.5 Rate HEAD: Is atraumatic normocephalic. EYES: Pupils equal round regular reactive to light and accommodation. Extraocular movements are normal. There is no conjunctival pallor. There is no scleral icterus. EARS: Tympanic membranes are intact. External auditory canals are clear. NOSE: There is no inflammation of the nasal mucous membrane. There is no deviated nasal septum. MOUTH: Mucous membranes of the mouth are moist. There is an NG tube in situ. There is no bleeding from the gums. THROAT: There is no redness of the oropharynx. There is no exudates. SKIN: There is no skin rashes. 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 There is no particular ecchymosis. NECK: Is supple. There is no hepatospleno megaly. There is no lymphadenopathy. There is no goiter. There is no accessory muscles of respiration use. Trachea central. LUNGS: Is clear to auscultation percussion. There is no rhonchi rales or wheezing. HEART: S1-S2 is heard. S1 is of normal intensity. There is no S3 gallop there is no S4 gallop. There is systolic murmur left sternal border and the apex there is no rub. ABDOMEN: Is mildly distended. Soft. There is tenderness over the incision. The abdominal dressing is dry and clean. Bowel sounds are heard. EXTREMITIES: Femorals are slightly diminished. There is no femoral bruits. Leg pulses are well felt. There is no pedal edema. There is no DVT or cellulitis. 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 PSYCHIATRIC: Patient judgment insight are intact his affect is normal. Labs- All tests 24 hr 12/25/18 12/25/18 12/25/18 11:54 17:18 23:35 WBC RBC Hgb Hct MCV MCH MCHC RDW Plt Count Lymph % (Auto) [place] % (Auto) Eos % (Auto) Baso % (Auto) Absolute Neuts (auto) Absolute Lymphs (auto) Absolute Monos (auto) Absolute Eos (auto) Absolute Basos (auto) Seg Neutrophils % Sodium Potassium Chloride Carbon Dioxide Anion Gap BUN Creatinine Est GFR ( Amer) Est GFR (MDRD) Non-Af Glucose POC Glucose 277 H 303 H 282 H Calcium 12/26/18 12/26/18 12/26/18 04:57 04:57 06:22 WBC 17.1 H RBC 3.09 L Hgb 9.0 L Hct 27.3 L MCV 89 MCH 29.0 MCHC 32.8 RDW 14.8 H Plt Count 268 Lymph % (Auto) 12.0 L [place] % (Auto) 15.2 H Eos % (Auto) 3.6 Baso % (Auto) 0.2 Absolute Neuts (auto) 11.8 H Absolute Lymphs (auto) 2.0 Absolute Monos (auto) 2.6 H Absolute Eos (auto) 0.6 Absolute Basos (auto) 0.0 Seg Neutrophils % 69.0 Sodium 144.9 Potassium 3.6 Chloride 105 Carbon Dioxide 36 H Anion Gap 4 L BUN 29 H Creatinine 1.23 Est GFR ( Amer) > 60 Est GFR (MDRD) Non-Af 58 L Glucose 231 H POC Glucose 252 H Calcium 7.7 L Chest X-Ray 12/18/18 00:00 IMPRESSION: Support lines and tubes have been placed as described. Chest X-Ray 12/18/18 00:00 IMPRESSION: Lines and catheters in place, as above.. Probable tiny bibasilar effusions copyright 2010 [employer]- All Rights Reserved Chest X-Ray 12/19/18 00:00 IMPRESSION: 1. No significant interval changes since examination performed earlier on the same date, 12/19/2018. No evidence of pneumothorax. 2. Support tubes and line are unchanged. Chest X-Ray 12/19/18 06:00 IMPRESSION: STABLE APPEARANCE OF THE CHEST. SUPPORT DEVICES UNCHANGED. Chest X-Ray 12/20/18 06:00 IMPRESSION: 1. Tubes and lines as above. 2. Unchanged radiographic appearance of the chest with low inspiratory lung volumes, a probable left retrocardiac opacity, and mild cardiomegaly. Chest X-Ray 12/21/18 06:00 IMPRESSION: Stable appearance of the lungs. Chest X-Ray 12/23/18 00:00 IMPRESSION: Unchanged radiographic appearance of the chest. IMPRESSION/RECOMMENDATION: 1. A small non-ST elevation SC cannot be entirely excluded. Patient without anginal symptoms. In the troponins trended down. The patient has been started on tube feedings. Hence we will start the patient on Lopressor 25 mg p.o. every 12 hours by the NG tube and increase as tolerated. Later we will start the patient on aspirin. The patient is EKG is much improved. Continue Lopressor at 50 mg by the NG tube every 12 hours. Will repeat EKG in a.m.. 2. Status post Whipple procedure complicated by postoperative bleeding, redo surgery, and cardiac arrest, and massive blood transfusions. At present patient stable. 3. Pancreatic cancer. 4.Coronary artery disease. History of LAD stent in 2012: No anginal symptoms. 5. Hypertension: Blood pressure well controlled 6. Diabetes mellitus: Continue Accu-Cheks and sliding insulin scale coverage. 7. Chronic kidney disease: Appears to be stable avoid nephrotoxic drugs 8. History of depression: At present clinically the patient does not appear to be depressed. 9. Posttraumatic stress disorder: Stable. 10. MRSA pneumonia: Patient on antibiotics. Clinically appears to be stable. MEDICATIONS reviewed. Medication regimen and Management plan discussed with the optical lens manufacturing tech. Medical decision making is of moderate complexity in view of the change in medications. 40 minutes spent on the patient with more than 50% of time spent in direct patient care. Will follow.
[2018-12-26] MEDS: INSULIN GLARGINE,HUM.REC.ANLOG 1,000 UNIT/10 ML VIAL SUBCUT SCH (10:36)
[2018-12-26] MEDS: VANCOMYCIN HCL 1,000 MG in DEXTROSE 5%-WATER 250 ML IV SCH ×2 (10:40→22:13)
[2018-12-26] MEDS: HYDROMORPHONE HCL INJ/PF 2 MG/ML AMPULE IV PRN ×2 (13:23→23:44)
[2018-12-26] MEDS ORDERED: FUROSEMIDE INJ/PF 40 MG/4 ML SDV IV ONE (13:30)
[2018-12-27] MEDS: INSULIN LISPRO 100 UNIT/ML 3 ML VIAL SUBCUT SCH ×4 (01:23→18:59)
[2018-12-27] MEDS: MEROPENEM 1 GM in NORMAL SALINE 50 ML IV SCH ×3 (01:23→18:59)
[2018-12-27] MEDS: KETOROLAC TROMETHAMINE INJ/PF 30 MG/1 ML SDV IV SCH ×4 (04:09→21:10)
[2018-12-27] MEDS: HYDROMORPHONE HCL INJ/PF 2 MG/ML AMPULE IV PRN ×3 (05:49→18:59)
[2018-12-27] MEDS: HEPARIN SOD (PORCINE) 5,000 UNIT/ML 1 ML VIAL SUBCUT SCH ×3 (05:59→21:15)
[2018-12-27 06:34] LABS: HEMATOCRIT 27.4 % (37.9-51.0); HEMOGLOBIN 8.9 g/dL (13.5-17.0); MEAN CORPUSCULAR HEMOGLOBIN 28.7 pg (27.0-33.4); MEAN CORPUSCULAR HGB CONC 32.6 g/dL (32.0-36.0); MEAN CORPUSCULAR VOLUME 88 fl (80-97); PLATELET COUNT 281 10^3/uL (150-450); RED BLOOD COUNT 3.11 10^6/uL (4.35-5.55); RED CELL DISTRIBUTION WIDTH 14.8 % (11.5-14.0); WHITE BLOOD COUNT 14.3 10^3/uL (4.0-10.5)
--- NOTE | 2018-12-27 06:39 | EKG REPORT ---
SEVERITY:- ABNORMAL ECG - SINUS RHYTHM VENTRICULAR TRIGEMINY BORDERLINE LEFT AXIS DEVIATION BORDERLINE T ABNORMALITIES, ANT-LAT LEADS : Confirmed by: Quinn Anderson MD 27-Dec-2018 06:38:42
[2018-12-27 07:05] LABS: BLOOD UREA NITROGEN 30 mg/dL (7-20); CALCIUM 7.6 mg/dL (8.4-10.2); CARBON DIOXIDE 35 mmol/L (22-30); CHLORIDE 102 mmol/L (98-107); GLUCOSE 298 mg/dL (75-110); POTASSIUM 3.7 mmol/L (3.6-5.0)
[2018-12-27 07:07] LABS: ABSOLUTE LYMPHOCYTES# (MANUAL) 1.4 10^3/uL (0.5-4.7); ABSOLUTE MONOCYTES # (MANUAL) 1.6 10^3/uL (0.1-1.4); BASOPHILS % (MANUAL) 0 % (0-2); EOSINOPHILS % (MANUAL) 3 % (0-6); LYMPHOCYTES % (MANUAL) 10 % (13-45); MONOCYTES % (MANUAL) 11 % (3-13); NUCLEATED RED BLOOD CELLS 2 /100 WBC (0); SEGMENTED NEUTROPHILS % (MAN) 76 % (42-78); TOTAL CELLS COUNTED 100
[2018-12-27 07:08] LABS: ANISOCYTOSIS 1+; HYPOCHROMASIA SLIGHT; PLATELET COMMENT ADEQUATE; POLYCHROMASIA SLIGHT; TOXIC GRANULATION SLIGHT
[2018-12-27 07:15] LABS: ANION GAP 3 (5-19)
[2018-12-27] MEDS ORDERED: BISACODYL 10 MG SUPP.RECT PR ONE (07:26)
--- NOTE | 2018-12-27 07:30 | PDOC PROGRESS REPORT ---
Subjective Progress Note for:: 12/27/18 Subjective:: feels ok, passing flatus Reason For Visit: PANCREATIC CANCER Physical Exam Vital Signs: Temp Pulse Resp BP Pulse Ox 97.8 F 76 13 123/73 100 12/26/18 20:00 12/26/18 16:00 12/27/18 07:00 12/27/18 06:58 12/27/18 07:00 Intake & Output 12/26/18 12/27/18 12/28/18 06:59 06:59 06:59 Intake Total 1710 1257 Output Total 830 765 Balance 880 492 Weight 120.4 kg General appearance: PRESENT: no acute distress Head exam: PRESENT: normocephalic Eye exam: PRESENT: EOMI Ear exam: PRESENT: normal external ear exam Mouth exam: PRESENT: dry mucosa Neck exam: PRESENT: full ROM Respiratory exam: PRESENT: clear to auscultation roman Cardiovascular exam: PRESENT: RRR Pulses: PRESENT: normal femoral pulses, normal dorsalis pedis pul GI/Abdominal exam: PRESENT: soft Rectal exam: PRESENT: deferred Extremities exam: PRESENT: full ROM Musculoskeletal exam: PRESENT: full ROM Neurological exam: PRESENT: alert, altered, awake, oriented to person, oriented to place, oriented to time, oriented to situation Psychiatric exam: PRESENT: appropriate affect Skin exam: PRESENT: dry Results Laboratory Results: 12/27/18 06:05 12/27/18 06:05 12/27/18 12/27/18 06:05 06:05 WBC 14.3 H RBC 3.11 L Hgb 8.9 L Hct 27.4 L MCV 88 MCH 28.7 MCHC 32.6 RDW 14.8 H Plt Count 281 Seg Neutrophils % Not Reportable Sodium 139.9 Potassium 3.7 Chloride 102 Carbon Dioxide 35 H Anion Gap 3 L BUN 30 H Creatinine 1.38 H Est GFR ( Amer) > 60 Glucose 298 H Calcium 7.6 L 12/18/18 12/19/18 12/20/18 22:08 12:00 11:10 Troponin I 0.059 0.148 0.038 Impressions: Chest X-Ray 12/23/18 00:00 IMPRESSION: Unchanged radiographic appearance of the chest. Assessment & Plan - Diagnosis (1) Pancreatic malignancy syndrome Is this a current diagnosis for this admission?: Yes - Time Time Spent with patient: 25-34 minutes - Plan Summary Plan Summary: doing well not very active due to icu status waiting on tx to floor. labs reivewed wbc 14k h/h stable still with increased ng op however taking po liquids passing flatus no bm plan will increase tube feeds to 30cc/hr cont to increase out of bed dulcolax supp.
[2018-12-27] MEDS: INSULIN GLARGINE,HUM.REC.ANLOG 1,000 UNIT/10 ML VIAL SUBCUT SCH (09:31)
[2018-12-27] MEDS: METOPROLOL TARTRATE 50 MG TABLET PO SCH ×2 (09:31→21:24)
[2018-12-27] MEDS: VANCOMYCIN HCL 1,000 MG in DEXTROSE 5%-WATER 250 ML IV SCH ×2 (09:32→21:10)
--- NOTE | 2018-12-27 09:58 | PDOC PROGRESS REPORT ---
Subjective Progress Note for:: 12/27/18 Subjective:: Critical Care Progress Note. Pt remains in ICU awaiting a telemetry bed. Wants some callie hesham Reason For Visit: PANCREATIC CANCER Physical Exam Vital Signs: Temp Pulse Resp BP Pulse Ox 98.1 F 76 13 123/73 100 12/27/18 08:00 12/26/18 16:00 12/27/18 07:00 12/27/18 06:58 12/27/18 07:00 Intake & Output 12/26/18 12/27/18 12/28/18 06:59 06:59 06:59 Intake Total 1710 1557 110 Output Total 830 1165 Balance 880 392 110 Weight 120.4 kg 121.7 kg General appearance: PRESENT: no acute distress, well-developed, well-nourished Respiratory exam: PRESENT: decreased breath sounds, unlabored Cardiovascular exam: PRESENT: RRR GI/Abdominal exam: PRESENT: soft - abdominal binder in place, J-tube in place Extremities exam: PRESENT: other - trace pre-tibial edema Results Laboratory Results: 12/27/18 06:05 12/27/18 06:05 12/27/18 12/27/18 06:05 06:05 WBC 14.3 H RBC 3.11 L Hgb 8.9 L Hct 27.4 L MCV 88 MCH 28.7 MCHC 32.6 RDW 14.8 H Plt Count 281 Seg Neutrophils % Not Reportable Sodium 139.9 Potassium 3.7 Chloride 102 Carbon Dioxide 35 H Anion Gap 3 L BUN 30 H Creatinine 1.38 H Est GFR ( Amer) > 60 Glucose 298 H Calcium 7.6 L 12/18/18 12/19/18 12/20/18 22:08 12:00 11:10 Troponin I 0.059 0.148 0.038 Impressions: Chest X-Ray 12/23/18 00:00 IMPRESSION: Unchanged radiographic appearance of the chest. Assessment & Plan - Diagnosis (1) Pancreatic malignancy syndrome Is this a current diagnosis for this admission?: Yes (2) Cirrhosis of liver Qualifiers: Hepatic cirrhosis type: unspecified hepatic cirrhosis Ascites presence: without ascites Qualified Code(s): K74.60 - Unspecified cirrhosis of liver Is this a current diagnosis for this admission?: Yes (3) Acute blood loss as cause of postoperative anemia Is this a current diagnosis for this admission?: Yes (4) Sepsis Qualifiers: Sepsis type: sepsis due to unspecified organism Sepsis acute organ dysfunction status: with acute organ dysfunction Is this a current diagnosis for this admission?: Yes (5) MRSA pneumonia Qualifiers: Lung location: unspecified part of lung Is this a current diagnosis for this admission?: Yes - Time Time Spent with patient: 25-34 minutes Level of Care: ICU Provider Note Provider Note: Assessment: 68 yo man with pancreatic cancer, s/p distal pancreatectomy and 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 Respiratory: acute respiratory failure, resolved. Pt extubated on 12/22. Stable on 2liters nasal cannula. Wean to RA as tolerated 2. Pulmonary: MRSA PNA. Day 5 vanc and meropenem. 3. CV: CAD,HTN. Dr. Graham following. Lopressor increased to 50 mg NGT BID 4. Surgery:pancreatic cancer, s/p distal pancreatectomy and splenectomy on 12/18, hemoperitoneum s/p ex-lap on 12/18. Care per surgery 6. ID: MRSA PNA, sepsis, recent intraadominal surgery. Day 5 vanc and meropenem. WBC decreased to 14.3 7. Heme: hemorrhagic shock, resolved. acute blood loss anemia. No further signs of bleeding. Hg is acceptable at 9.0 8. F/E/N: tube feeds at low rate per surgery. Hypernatremia,resolved. Will d/c D5W 9. Endocrine: DM. Accuchecks, SSI, lantus. Will d/c D5W 10. Prophylaxis: sq heparin 11. PT/OT consulted. Will get consult for IP rehab 12. Disposition: stable for transfer to telemetry. Dr. Balbuena wants the Hospitalist to continue to follow pt when pt is transferred.
--- NOTE | 2018-12-27 17:32 | PDOC CONSULTATION ---
Consultation Consult Date: 12/27/18 Attending physician:: MICAH ARIAS Provider Consulted: BRYANT COSBY Consult reason:: Medical Management History of Present Illness Admission Date/PCP: 12/18/18 07:[facility] History of Present Illness: RAJAT DANIEL is a 68 year old male past medical history of TIM, diabetes, PTSD, cirrhosis due to hepatitis C, dyslipidemia, CKD, admitted on 12/18/2018 for distal pancreatectomy/splenectomy for underlying tumor of the pancreatic head unfortunately patient went into hemorrhagic shock intraoperatively and was transferred to ICU. Patient transferred back to floor on 12/27/2018 and hospitalist was consulted for medical management. Past Medical History Cardiac Medical History: Reports: Hyperlipidema, Hypertension Denies: Atrial Fibrillation, Congestive Heart Failure, Coronary Artery Di sease, Myocardial Infarction, Peripheral Vascular Disease, Pulmonary Embolism, Heart Murmur Pulmonary Medical History: Reports: Sleep Apnea Denies: Asthma, Bronchitis, Chronic Obstructive Pulmonary Disease (COPD), Pneumonia, Respiratory Failure, Tuberculosis Neurological Medical History: Denies: Seizures Endocrine Medical History: Reports: Diabetes Mellitus Type 2 Denies: Hyperthyroidism, Hypothyroidism Renal/ Medical History: Denies: End Stage Renal Disease Malignancy Medical History: Reports: Pancreatic Cancer Denies: Leukemia, Lung Cancer GI Medical History: Reports: Cirrhosis - Noted in operating room Denies: Crohn's Disease, Gastroesophageal Reflux Disease, Hiatal Hernia Musculoskeltal Medical History: Reports: Arthritis Denies: Fibromyalgia Psychiatric Medical History: Reports: Depression - Anxiety, Post Traumatic Stress Disorder Denies: Bipolar Disorder, Dementia Hematology: Denies: Anemia, Hemophilia, Sickle Cell Disease Infectious Medical History: Denies: HIV Past Surgical History Past Surgical History: Reports: Herniorrhaphy - Bilateral Inguinal/Femoral, Orthopedic Surgery - right knee Denies: Appendectomy, Cholecystectomy, Colostomy, Coronary Artery Bypass Graft, Gastric Bypass Surgery, Pacemaker, Tonsillectomy Social History Lives with: Family, Spouse/Significant other Smoking Status: Former Smoker Frequency of Alcohol Use: Social Hx Recreational Drug Use: No Drugs: None Hx Prescription Drug Abuse: No Family History Family History: Reviewed & Not Pertinent, DM, Hypertension, Other Parental Family History Reviewed: Yes Children Family History Reviewed: Yes Sibling(s) Family History Reviewed.: Yes Medication/Allergy Home Medications: Carvedilol [Coreg 25 mg Tablet] 25 mg PO Q12 01/25/18 Furosemide [Lasix 20 mg Tablet] 60 mg PO DAILY 01/25/18 Insulin Glargine,Hum.rec.anlog [Lantus Insulin 100 Unit/mL Insulin Pen] 90 units SQ QHS 01/25/18 Losartan Potassium [Cozaar 100 mg Tablet] 100 mg PO DAILY 01/25/18 Atorvastatin Calcium [Lipitor 20 mg Tablet] 20 mg PO QHS 11/10/18 Citalopram Hydrobromide [Celexa] 40 mg PO DAILY 11/10/18 Insulin Aspart [Novolog] 15 unit SQ ACSUPPER 11/10/18 Potassium Chloride [Klor-Con M20] 20 meq PO DAILY 11/10/18 Amlodipine Besylate [Norvasc 10 mg Tablet] 10 mg PO DAILY 12/18/18 Aspirin [Ecotrin 81 mg EC Tablet] 81 mg PO DAILY 12/18/18 Oxycodone HCl 15 mg PO Q8HP PRN 12/18/18 Oxycodone HCl 20 mg PO Q12 12/18/18 Allergies/Adverse Reactions: hydrocodone Allergy (Intermediate, Verified 12/13/18 10:41) Hives morphine Allergy (Intermediate, Verified 12/13/18 10:41) Hives Penicillins Allergy (Intermediate, Verified 12/13/18 10:41) Hives, SOB Physical Exam Vital Signs: Temp Pulse Resp BP Pulse Ox 98.3 F 76 16 140/87 H 100 12/27/18 12:00 12/26/18 16:00 12/27/18 15:00 12/27/18 14:58 12/27/18 15:00 Intake & Output 12/26/18 12/27/18 12/28/18 06:59 06:59 06:59 Intake Total 1710 1557 560 Output Total 830 1165 Balance 880 392 560 Weight 120.4 kg 121.7 kg Results Laboratory Results: 12/27/18 06:05 12/27/18 06:05 12/27/18 12/27/18 06:05 06:05 WBC 14.3 H RBC 3.11 L Hgb 8.9 L Hct 27.4 L MCV 88 MCH 28.7 MCHC 32.6 RDW 14.8 H Plt Count 281 Seg Neutrophils % Not Reportable Sodium 139.9 Potassium 3.7 Chloride 102 Carbon Dioxide 35 H Anion Gap 3 L BUN 30 H Creatinine 1.38 H Est GFR ( Amer) > 60 Glucose 298 H Calcium 7.6 L 12/18/18 12/19/18 12/20/18 22:08 12:00 11:10 Troponin I 0.059 0.148 0.038 Impressions: Chest X-Ray 12/23/18 00:00 IMPRESSION: Unchanged radiographic appearance of the chest. Assessment and Plan - Diagnosis (1) Acute respiratory failure with hypoxia Is this a current diagnosis for this admission?: Yes Plan: Resolved. Extubated on 1027. SPO2 WNL on 2 L NC. (2) Hypertension Is this a current diagnosis for this admission?: Yes Plan: Normotensive. Home meds are: Losartan 100 mg p.o. daily Lasix 20 mg p.o. daily Carvedilol 25 mg p.o. daily. Amlodipine 10 mg p.o. daily. Currently on metoprolol tartrate 25 mg p.o. twice daily. We will restart home meds as appropriate. Monitor vital status, adjust meds as needed. (3) Pancreatic cancer Qualifiers: Pancreatic malignancy location: head of pancreas Qualified Code(s): C25.0 - Malignant neoplasm of head of pancreas Is this a current diagnosis for this admission?: Yes Plan: Status post distal pancreatectomy and splenectomy on 12/18/2018. Outpatient oncology and PCP follow-up. Defer management to surgical team. (4) Coronary artery disease Qualifiers: Coronary Disease-Associated Artery/Lesion type: [place] artery [place] vs. transplanted heart: [place] heart Associated angina: angina presence unspecified Qualified Code(s): I25.10 - Atherosclerotic heart disease of [place] coronary artery without angina pectoris Is this a current diagnosis for this admission?: Yes Plan: Continue antiplatelets, statins, beta-blockers. Resume meds once kidney function is stabilized. Outpatient PCP and cardiology follow-up. Cardiology on board. (5) Diabetes mellitus type 2 in obese Is this a current diagnosis for this admission?: Yes Plan: Controlled. Hemoglobin A1c 6.7%. Continue diabetic diet, prandial, basal and sliding scale insulin. Continue Accu-Chek, hypoglycemic protocol. Adjust dose as needed. Outpatient PCP follow-up. (6) MRSA pneumonia Qualifiers: Lung location: unspecified part of lung Is this a current diagnosis for this admission?: Yes Plan: Afebrile. Still significant leukocytosis. No bandemia. SPO2 WNL on 2 L NC. 12/21/2017 sputum culture positive for MRSA. Repeat blood cultures negative x4 days. Day 5 IV vancomycin. Day 5 IV meropenem. Continue empiric IV antibiotic Follow-up cultures. (7) Sepsis Qualifiers: Sepsis type: sepsis due to unspecified organism Qualified Code(s): A41.9 - Sepsis, unspecified organism Is this a current diagnosis for this admission?: Yes Plan: Resolved. Vitals WNL. Likely due to underlying infectious process. Continue empiric IV antibiotics. Monitor vitals.
[2018-12-27] MEDS ORDERED: GLUCAGON,HUMAN RECOMB 1 MG INJ IM PRN (17:51)
[2018-12-27] MEDS ORDERED: DEXTROSE 50%-WATER 25 GM/50 ML DISP.SYRIN IV PRN ×2 (17:51)
[2018-12-27] MEDS ORDERED: DEXTROSE 40% GEL 15 GM TUBE PO PRN ×2 (17:51)
--- NOTE | 2018-12-27 20:54 | Progress Note ---
Provider Note Provider Note: CARDIOLOGY PROGRESS NOTE by Dr. Yulia Ramos on 12/27/2018. SUBJECTIVE: The patient denies any chest pain or discomfort. He is passing flatus. There is no shortness of breath there is no PND orthopnea. There is no arrhythmia seen. There is no TIA CVA symptoms. The patient is being transferred to a stepdown telemetry unit. His NG tube is still present. He is tolerating tube feedings. He still on nasal O2. PHYSICAL EXAMINATION: The patient is moderately obese. In no acute distress. Selected Entries 12/27/18 12/27/18 12/27/18 04:24 11:58 12:00 Temperature 98.3 F Temperature Axillary Source Heart Rate ( 73 Monitors) Respiratory 14 Rate Blood Pressure 151/94 H Blood Pressure 113 Mean O2 Sat by Pulse 100 Oximetry Fraction of 38 Inspired Oxygen (FIO2) Oxygen Flow 4.5 Rate HEAD: Is atraumatic normocephalic. EYES: Pupils equal round regular reactive to light and accommodation. Extraocular movements are normal. There is no conjunctival pallor. There is no scleral icterus. EARS: Tympanic membranes are intact. External auditory canals are clear. NOSE: There is no inflammation of the nasal mucous membrane. There is no deviated nasal septum. MOUTH: Mucous membranes of the mouth are moist. There is an NG tube in situ. There is no bleeding from the gums. THROAT: There is no redness of the oropharynx. There is no exudates. SKIN: There is no skin rashes. 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 There is no particular ecchymosis. NECK: Is supple. There is no hepatospleno megaly. There is no lymphadenopathy. There is no goiter. There is no accessory muscles of respiration use. Trachea central. LUNGS: Is clear to auscultation percussion. There is no rhonchi rales or wheezing. HEART: S1-S2 is heard. S1 is of normal intensity. There is no S3 gallop there is no S4 gallop. There is systolic murmur left sternal border and the apex there is no rub. ABDOMEN: Is mildly distended. Soft. There is tenderness over the incision. The abdominal dressing is dry and clean. Bowel sounds are heard. EXTREMITIES: Femorals are slightly diminished. There is no femoral bruits. Leg pulses are well felt. There is no pedal edema. There is no DVT or cellulitis. NP: The patient is conscious awake alert oriented x3 with no focal deficits. PSYCHIATRIC: Patient judgment insight are intact his affect is normal. Labs- All tests 24 hr 12/26/18 12/27/18 12/27/18 23:50 05:54 06:05 WBC RBC Hgb Hct MCV MCH MCHC RDW Plt Count Lymph % (Auto) [place] % (Auto) Eos % (Auto) Baso % (Auto) Absolute Neuts (auto) Absolute Lymphs (auto) Absolute Monos (auto) Absolute Eos (auto) Absolute Basos (auto) Total Counted Seg Neutrophils % Seg Neuts % (Manual) Lymphocytes % (Manual) Monocytes % (Manual) Eosinophils % (Manual) Basophils % (Manual) Abs Neuts (Manual) Abs Lymphs (Manual) Abs Monocytes (Manual) Absolute Eos (Manual) Abs Basophils (Manual) Nucleated RBCs Toxic Granulation Platelet Comment Polychromasia Hypochromasia Basophilic Stippling Anisocytosis Sodium 139.9 Potassium 3.7 Chloride 102 Carbon Dioxide 35 H Anion Gap 3 L BUN 30 H Creatinine 1.38 H Est GFR ( Amer) > 60 Est GFR (MDRD) Non-Af 51 L Glucose 298 H POC Glucose 287 H 313 H Calcium 7.6 L 12/27/18 12/27/18 12/27/18 06:05 11:51 18:55 WBC 14.3 H RBC 3.11 L Hgb 8.9 L Hct 27.4 L MCV 88 MCH 28.7 MCHC 32.6 RDW 14.8 H Plt Count 281 Lymph % (Auto) Not Reportable [place] % (Auto) Not Reportable Eos % (Auto) Not Reportable Baso % (Auto) Not Reportable Absolute Neuts (auto) Not Reportable Absolute Lymphs (auto) Not Reportable Absolute Monos (auto) Not Reportable Absolute Eos (auto) Not Reportable Absolute Basos (auto) Not Reportable Total Counted 100 Seg Neutrophils % Not Reportable Seg Neuts % (Manual) 76 Lymphocytes % (Manual) 10 L Monocytes % (Manual) 11 Eosinophils % (Manual) 3 Basophils % (Manual) 0 Abs Neuts (Manual) 10.9 H Abs Lymphs (Manual) 1.4 Abs Monocytes (Manual) 1.6 H Absolute Eos (Manual) 0.4 Abs Basophils (Manual) 0.0 Nucleated RBCs 2 Toxic Granulation SLIGHT Platelet Comment ADEQUATE Polychromasia SLIGHT Hypochromasia SLIGHT Basophilic Stippling PRESENT Anisocytosis 1+ Sodium Potassium Chloride Carbon Dioxide Anion Gap BUN Creatinine Est GFR ( Amer) Est GFR (MDRD) Non-Af Glucose POC Glucose 307 H 310 H Calcium Chest X-Ray 12/18/18 00:00 IMPRESSION: Support lines and tubes have been placed as described. Chest X-Ray 12/18/18 00:00 IMPRESSION: Lines and catheters in place, as above.. Probable tiny bibasilar effusions copyright 2010 [employer]- All Rights Reserved Chest X-Ray 12/19/18 00:00 IMPRESSION: 1. No significant interval changes since examination performed earlier on the same date, 12/19/2018. No evidence of pneumothorax. 2. Support tubes and line are unchanged. Chest X-Ray 12/19/18 06:00 IMPRESSION: STABLE APPEARANCE OF THE CHEST. SUPPORT DEVICES UNCHANGED. Chest X-Ray 12/20/18 06:00 IMPRESSION: 1. Tubes and lines as above. 2. Unchanged radiographic appearance of the chest with low inspiratory lung volumes, a probable left retrocardiac opacity, and mild cardiomegaly. Chest X-Ray 12/21/18 06:00 IMPRESSION: Stable appearance of the lungs. Chest X-Ray 12/23/18 00:00 IMPRESSION: Unchanged radiographic appearance of the chest. IMPRESSION/RECOMMENDATION: 1. A small non-ST elevation ME cannot be entirely excluded. Patient without anginal symptoms. In the troponins trended down. The patient has been started on tube feedings. Hence we will start the patient on Lopressor 25 mg p.o. every 12 hours by the NG tube and increase as tolerated. Later we will start the patient on aspirin. The patient is EKG is much improved. Continue Lopressor at 50 mg by the NG tube every 12 hours. Will repeat EKG in a.m.. 2. Status post Whipple procedure complicated by postoperative bleeding, redo surgery, and cardiac arrest, and massive blood transfusions. At present patient stable. 3. Pancreatic cancer. 4.Coronary artery disease. History of LAD stent in 2012: No anginal symptoms. 5. Hypertension: Blood pressure well controlled 6. Diabetes mellitus: Continue Accu-Cheks and sliding insulin scale coverage. 7. Chronic kidney disease: Appears to be stable avoid nephrotoxic drugs 8. History of depression: At present clinically the patient does not appear to be depressed. 9. Posttraumatic stress disorder: Stable. 10. MRSA pneumonia: Patient on antibiotics. Clinically appears to be stable. Medications reviewed. Management plan discussed with attending physician on the case. Medication regimens discussed with them. We will add nitrates. We will also add aspirin. Medical decision making is of high complexity in view of the adjustment and adding medications. 40 minutes spent on this patient more than 50% of time spent in direct patient care. Will follow..
[2018-12-28] MEDS: HYDROMORPHONE HCL INJ/PF 2 MG/ML AMPULE IV PRN ×3 (00:53→22:01)
[2018-12-28] MEDS: INSULIN LISPRO 100 UNIT/ML 3 ML VIAL SUBCUT SCH ×8 (01:13→23:09)
[2018-12-28] MEDS: MEROPENEM 1 GM in NORMAL SALINE 50 ML IV SCH ×4 (02:33→22:48)
[2018-12-28] MEDS: KETOROLAC TROMETHAMINE INJ/PF 30 MG/1 ML SDV IV SCH (02:57)
[2018-12-28] MEDS: HEPARIN SOD (PORCINE) 5,000 UNIT/ML 1 ML VIAL SUBCUT SCH ×3 (05:58→21:59)
[2018-12-28 06:44] LABS: HEMATOCRIT 28.8 % (37.9-51.0); HEMOGLOBIN 9.4 g/dL (13.5-17.0); MEAN CORPUSCULAR HEMOGLOBIN 28.6 pg (27.0-33.4); MEAN CORPUSCULAR HGB CONC 32.6 g/dL (32.0-36.0); MEAN CORPUSCULAR VOLUME 88 fl (80-97); PLATELET COUNT 316 10^3/uL (150-450); RED BLOOD COUNT 3.29 10^6/uL (4.35-5.55); RED CELL DISTRIBUTION WIDTH 14.6 % (11.5-14.0); WHITE BLOOD COUNT 20.9 10^3/uL (4.0-10.5)
[2018-12-28 06:58] LABS: ANION GAP 6 (5-19); BLOOD UREA NITROGEN 33 mg/dL (7-20); CALCIUM 7.9 mg/dL (8.4-10.2); CARBON DIOXIDE 35 mmol/L (22-30); CHLORIDE 101 mmol/L (98-107); GLUCOSE 223 mg/dL (75-110); POTASSIUM 3.7 mmol/L (3.6-5.0)
[2018-12-28 07:13] LABS: ABSOLUTE LYMPHOCYTES# (MANUAL) 1.7 10^3/uL (0.5-4.7); ABSOLUTE MONOCYTES # (MANUAL) 1.5 10^3/uL (0.1-1.4); BAND NEUTROPHILS % (MANUAL) 1 % (3-5); BASOPHILS % (MANUAL) 0 % (0-2); EOSINOPHILS % (MANUAL) 1 % (0-6); LYMPHOCYTES % (MANUAL) 8 % (13-45); MONOCYTES % (MANUAL) 7 % (3-13); SEGMENTED NEUTROPHILS % (MAN) 83 % (42-78); TOTAL CELLS COUNTED 100
[2018-12-28 07:14] LABS: ANISOCYTOSIS SLIGHT; PLATELET COMMENT ADEQUATE
[2018-12-28] MEDS ORDERED: INSULIN LISPRO 100 UNIT/ML 3 ML VIAL SUBCUT SCH (08:00)
[2018-12-28] MEDS ORDERED: INSULIN GLARGINE,HUM.REC.ANLOG 1,000 UNIT/10 ML VIAL SUBCUT SCH ×2 (10:00)
--- NOTE | 2018-12-28 10:14 | PDOC PROGRESS REPORT ---
Subjective Progress Note for:: 12/28/18 Subjective:: comfortable, has not been out of bed states he had large bm this morning Reason For Visit: PANCREATIC CANCER Physical Exam Vital Signs: Temp Pulse Resp BP Pulse Ox 98.8 F 73 22 H 144/86 H 97 12/28/18 04:00 12/28/18 04:00 12/28/18 04:00 12/28/18 04:00 12/28/18 08:36 Intake & Output 12/27/18 12/28/18 12/29/18 06:59 06:59 05:59 Intake Total 1557 1690 Output Total 1165 645 Balance 392 1045 Weight 121.7 kg 108.5 kg General appearance: PRESENT: no acute distress Head exam: PRESENT: normocephalic Eye exam: PRESENT: EOMI Ear exam: PRESENT: normal external ear exam Mouth exam: PRESENT: moist Neck exam: PRESENT: full ROM Respiratory exam: PRESENT: clear to auscultation roman Cardiovascular exam: PRESENT: RRR GI/Abdominal exam: PRESENT: soft Rectal exam: PRESENT: deferred Extremities exam: PRESENT: full ROM Musculoskeletal exam: PRESENT: full ROM Psychiatric exam: PRESENT: appropriate affect Skin exam: PRESENT: dry Results Laboratory Results: 12/28/18 06:00 12/28/18 06:00 12/28/18 12/28/18 06:00 06:00 WBC 20.9 H RBC 3.29 L Hgb 9.4 L Hct 28.8 L MCV 88 MCH 28.6 MCHC 32.6 RDW 14.6 H Plt Count 316 Seg Neutrophils % Not Reportable Sodium 141.8 Potassium 3.7 Chloride 101 Carbon Dioxide 35 H Anion Gap 6 BUN 33 H Creatinine 1.84 H Est GFR ( Amer) 44 L Glucose 223 H Calcium 7.9 L 12/18/18 12/19/18 12/20/18 22:08 12:00 11:10 Troponin I 0.059 0.148 0.038 Impressions: Chest X-Ray 12/23/18 00:00 IMPRESSION: Unchanged radiographic appearance of the chest. Assessment & Plan - Diagnosis (1) Pancreatic malignancy syndrome Is this a current diagnosis for this admission?: Yes - Time Time Spent with patient: 35 or more minutes - Plan Summary Plan Summary: jtube is clogged and infusion leaking from side port has not been infusiing since yesterday when nursing put in solid meds. has not been getting iv infusionn since yesterday pt denies any pain or distresss wbc elevated today to 20k creat up to 1.84. still with good urine op still on meropeniumn and vanco attempt on unclogging jtube not successful still with high ng op bilious plan- will hold jtube strt iv fluids rehydration may need ct tomorrow if wbc cont to rise
[2018-12-28] MEDS: METOPROLOL TARTRATE 50 MG TABLET PO SCH ×2 (10:32→22:01)
[2018-12-28] MEDS: VANCOMYCIN HCL 1,000 MG in DEXTROSE 5%-WATER 250 ML IV SCH ×2 (10:33→23:23)
[2018-12-28] MEDS: NORMAL SALINE 1000 ML 1,000 ML IV PRN (10:51)
--- NOTE | 2018-12-28 10:54 | PDOC PROGRESS REPORT ---
Subjective Progress Note for:: 12/28/18 Subjective:: RAJAT DANIEL is a 68 year old male past medical history of TIM, diabetes, PTSD, cirrhosis due to hepatitis C, dyslipidemia, CKD, admitted on 12/18/2018 for distal pancreatectomy/splenectomy for underlying tumor of the pancreatic head unfortunately patient went into hemorrhagic shock intraoperatively and was transferred to ICU. Patient transferred back to floor on 12/27/2018 and hospitalist was consulted for medical management. 12/28/2018. No acute events overnight. Patient had one large bowel movement today. Passing flatus. Denies any fever, chills, nausea, vomiting, diarrhea or any urinary symptoms. Reason For Visit: PANCREATIC CANCER Physical Exam Vital Signs: Temp Pulse Resp BP Pulse Ox 98.8 F 73 22 H 144/86 H 97 12/28/18 04:00 12/28/18 04:00 12/28/18 04:00 12/28/18 04:00 12/28/18 08:36 Intake & Output 12/27/18 12/28/18 12/29/18 06:59 06:59 05:59 Intake Total 1557 1690 Output Total 1165 645 Balance 392 1045 Weight 121.7 kg 108.5 kg General appearance: PRESENT: morbidly obese Eye exam: ABSENT: scleral icterus Respiratory exam: PRESENT: clear to auscultation roman. ABSENT: rales, rhonchi, wheezes Cardiovascular exam: PRESENT: RRR. ABSENT: diastolic murmur, rubs, systolic murmur GI/Abdominal exam: PRESENT: normal bowel sounds, soft, other - J-tube in place.. ABSENT: distended, guarding, mass, organolmegaly, rebound, tenderness Neurological exam: PRESENT: alert, awake, oriented to person, oriented to place, oriented to time, oriented to situation, CN II-XII grossly intact. ABSENT: motor sensory deficit Results Laboratory Results: 12/28/18 06:00 12/28/18 06:00 12/28/18 12/28/18 06:00 06:00 WBC 20.9 H RBC 3.29 L Hgb 9.4 L Hct 28.8 L MCV 88 MCH 28.6 MCHC 32.6 RDW 14.6 H Plt Count 316 Seg Neutrophils % Not Reportable Sodium 141.8 Potassium 3.7 Chloride 101 Carbon Dioxide 35 H Anion Gap 6 BUN 33 H Creatinine 1.84 H Est GFR ( Amer) 44 L Glucose 223 H Calcium 7.9 L 12/18/18 12/19/18 12/20/18 22:08 12:00 11:10 Troponin I 0.059 0.148 0.038 Impressions: Chest X-Ray 12/23/18 00:00 IMPRESSION: Unchanged radiographic appearance of the chest. Assessment and Plan - Diagnosis (1) Hypertension Is this a current diagnosis for this admission?: Yes Plan: Normotensive. Home meds are: Losartan 100 mg p.o. daily Lasix 20 mg p.o. daily Carvedilol 25 mg p.o. daily. Amlodipine 10 mg p.o. daily. Currently on metoprolol tartrate 25 mg p.o. twice daily. We will restart home meds as appropriate. Monitor vital status, adjust meds as needed. (2) Acute respiratory failure with hypoxia Is this a current diagnosis for this admission?: Yes Plan: Resolved. Extubated on 1027. SPO2 WNL on 2 L NC. (3) Pancreatic cancer Qualifiers: Pancreatic malignancy location: head of pancreas Qualified Code(s): C25.0 - Malignant neoplasm of head of pancreas Is this a current diagnosis for this admission?: Yes Plan: Status post distal pancreatectomy and splenectomy on 12/18/2018. Outpatient oncology and PCP follow-up. Defer management to surgical team. (4) Coronary artery disease Qualifiers: Coronary Disease-Associated Artery/Lesion type: [place] artery [place] vs. transplanted heart: [place] heart Associated angina: angina presence unspecified Qualified Code(s): I25.10 - Atherosclerotic heart disease of [place] coronary artery without angina pectoris Is this a current diagnosis for this admission?: Yes Plan: Continue antiplatelets, statins, beta-blockers. Resume meds once kidney function is stabilized. Outpatient PCP and cardiology follow-up. Cardiology on board. (5) Diabetes mellitus type 2 in obese Is this a current diagnosis for this admission?: Yes Plan: Controlled. Hemoglobin A1c 6.7%. Continue diabetic diet, prandial, basal and sliding scale insulin. Continue Accu-Chek, hypoglycemic protocol. Adjust dose as needed. Outpatient PCP follow-up. (6) MRSA pneumonia Qualifiers: Lung location: unspecified part of lung Is this a current diagnosis for this admission?: Yes Plan: Afebrile. Still significant leukocytosis. No bandemia. SPO2 WNL on 2 L NC. 12/21/2017 sputum culture positive for MRSA. Repeat blood cultures negative x4 days. Day 6 IV vancomycin. Day 6 IV meropenem. Continue empiric IV antibiotic Follow-up cultures. (7) Sepsis Qualifiers: Sepsis type: sepsis due to unspecified organism Qualified Code(s): A41.9 - Sepsis, unspecified organism Is this a current diagnosis for this admission?: Yes Plan: Resolved. Vitals WNL. Likely due to underlying infectious process. Continue empiric IV antibiotics. Monitor vitals. (8) Acute kidney injury superimposed on CKD Is this a current diagnosis for this admission?: Yes Plan: Prerenal. Likely due to hemorrhagic shock. Making adequate urine output. Mild worsening of creatinine otherwise lateral WNL. We will start on cautious volume resuscitation guided by volume status. Avoid nephrotoxic meds. BMP tomorrow.
[2018-12-28] MEDS: ASPIRIN 81 MG TABLET, CHEWABLE PO SCH (13:20)
[2018-12-28] MEDS: NITROGLYCERIN 10 MG (0.4 MG/HR) PATCH.TD24 TD SCH (14:27)
[2018-12-28] MEDS ORDERED: NORMAL SALINE 1000 ML 1,500 ML IV ONE (19:30)
--- NOTE | 2018-12-28 20:52 | Progress Note ---
Provider Note Provider Note: CARDIOLOGY PROGRESS NOTE by Dr. Yulia Ramos on 12/28/2018. SUBJECTIVE: The patient states he had a large bowel movement today. He denies any abdominal pain. There is no chest pain or discomfort. There is no shortness of breath. There is no PND orthopnea. There is no atrial or ventricular arrhythmia seen on the monitor. Note that the patient J-tube is clogged and attempts to unclog it was unsuccessful. Further disposition regarding this as per surgical list. PHYSICAL EXAMINATION: The patient is moderately obese in no acute distress. Selected Entries 12/28/18 12:00 Temperature 98.6 F Temperature Oral Source Pulse Rate 76 Respiratory 21 H Rate Blood Pressure 146/94 H [Right Upper Arm] Blood Pressure Supine Position [Right Upper Arm] O2 Sat by Pulse 100 Oximetry Oxygen Delivery Nasal Cannula Method ( includes room air) Oxygen Flow 2 Rate HEAD: Is atraumatic normocephalic. EYES: Pupils equal round regular reactive to light and accommodation. Extraocular movements are normal. There is no conjunctival pallor. There is no scleral icterus. EARS: Tympanic membranes are intact. External auditory canals are clear. NOSE: There is no inflammation of the nasal mucous membrane. There is no deviated nasal septum. MOUTH: Mucous m embranes of the mouth are moist. There is an NG tube in situ. There is no bleeding from the gums. THROAT: There is no redness of the oropharynx. There is no exudates. SKIN: There is no skin rashes. 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 There is no particular ecchymosis. NECK: Is supple. There is no hepatospleno megaly. There is no lymphadenopathy. There is no goiter. There is no accessory muscles of respiration use. Trachea central. LUNGS: Is clear to auscultation percussion. There is no rhonchi rales or wheezing. HEART: S1-S2 is heard. S1 is of normal intensity. There is no S3 gallop there is no S4 gallop. There is systolic murmur left sternal border and the apex there is no rub. ABDOMEN: Is mildly distended. Soft. There is tenderness over the incision. The abdominal dressing is dry and clean. Bowel sounds are heard. EXTREMITIES: Femorals are slightly diminished. There is no femoral bruits. Leg pulses are well felt. There is no pedal edema. There is no DVT or cellulitis. PRIVACY DIRECTOR: The patient is conscious awake alert oriented x3 with no focal deficits. PSYCHIATRIC: Patient judgment insight are intact his affect is normal. Labs- All tests 24 hr 12/28/18 12/28/18 12/28/18 01:04 06:00 06:00 WBC 20.9 H RBC 3.29 L Hgb 9.4 L Hct 28.8 L MCV 88 MCH 28.6 MCHC 32.6 RDW 14.6 H Plt Count 316 Lymph % (Auto) Not Reportable [place] % (Auto) Not Reportable Eos % (Auto) Not Reportable Baso % (Auto) Not Reportable Absolute Neuts (auto) Not Reportable Absolute Lymphs (auto) Not Reportable Absolute Monos (auto) Not Reportable Absolute Eos (auto) Not Reportable Absolute Basos (auto) Not Reportable Total Counted 100 Seg Neutrophils % Not Reportable Seg Neuts % (Manual) 83 H Band Neutrophils % 1 L Lymphocytes % (Manual) 8 L Monocytes % (Manual) 7 Eosinophils % (Manual) 1 Basophils % (Manual) 0 Abs Neuts (Manual) 17.6 H Abs Lymphs (Manual) 1.7 Abs Monocytes (Manual) 1.5 H Absolute Eos (Manual) 0.2 Abs Basophils (Manual) 0.0 Platelet Comment ADEQUATE Anisocytosis SLIGHT Sodium 141.8 Potassium 3.7 Chloride 101 Carbon Dioxide 35 H Anion Gap 6 BUN 33 H Creatinine 1.84 H Est GFR ( Amer) 44 L Est GFR (MDRD) Non-Af 37 L Glucose 223 H POC Glucose 279 H Calcium 7.9 L 12/28/18 12/28/18 12/28/18 06:08 13:08 18:27 WBC RBC Hgb Hct MCV MCH MCHC RDW Plt Count Lymph % (Auto) [place] % (Auto) Eos % (Auto) Baso % (Auto) Absolute Neuts (auto) Absolute Lymphs (auto) Absolute Monos (auto) Absolute Eos (auto) Absolute Basos (auto) Total Counted Seg Neutrophils % Seg Neuts % (Manual) Band Neutrophils % Lymphocytes % (Manual) Monocytes % (Manual) Eosinophils % (Manual) Basophils % (Manual) Abs Neuts (Manual) Abs Lymphs (Manual) Abs Monocytes (Manual) Absolute Eos (Manual) Abs Basophils (Manual) Platelet Comment Anisocytosis Sodium Potassium Chloride Carbon Dioxide Anion Gap BUN Creatinine Est GFR ( Amer) Est GFR (MDRD) Non-Af Glucose POC Glucose 215 H 254 H 245 H Calcium Chest X-Ray 12/18/18 00:00 IMPRESSION: Support lines and tubes have been placed as described. Chest X-Ray 12/18/18 00:00 IMPRESSION: Lines and catheters in place, as above.. Probable tiny bibasilar effusions copyright 2010 [employer]- All Rights Reserved Chest X-Ray 12/19/18 00:00 IMPRESSION: 1. No significant interval changes since examination performed earlier on the same date, 12/19/2018. No evidence of pneumothorax. 2. Support tubes and line are unchanged. Chest X-Ray 12/19/18 06:00 IMPRESSION: STABLE APPEARANCE OF THE CHEST. SUPPORT DEVICES UNCHANGED. Chest X-Ray 12/20/18 06:00 IMPRESSION: 1. Tubes and lines as above. 2. Unchanged radiographic appearance of the chest with low inspiratory lung volumes, a probable left retrocardiac opacity, and mild cardiomegaly. Chest X-Ray 12/21/18 06:00 IMPRESSION: Stable appearance of the lungs. Chest X-Ray 12/23/18 00:00 IMPRESSION: Unchanged radiographic appearance of the chest. IMPRESSION/RECOMMENDATION: 1. A small non-ST elevation [place] cannot be entirely excluded. Patient without anginal symptoms. In the troponins trended down. The patient has been started on tube feedings. Hence we will start the patient on Lopressor 25 mg p.o. every 12 hours by the NG tube and increase as tolerated. Later we will start the patient on aspirin. The patient is EKG is much improved. Continue Lopressor at 50 mg by the NG tube every 12 hours. Will repeat EKG in a.m.. 2. Status post Whipple procedure complicated by postoperative bleeding, redo surgery, and cardiac arrest, and massive blood transfusions. At present patient stable. 3. Pancreatic cancer. 4.Coronary artery disease. History of LAD stent in 2012: No anginal symptoms. 5. Hypertension: Blood pressure well controlled 6. Diabetes mellitus: Continue Accu-Cheks and sliding insulin scale coverage. 7. Chronic kidney disease: Appears to be stable avoid nephrotoxic drugs 8. History of depression: At present clinically the patient does not appear to be depressed. 9. Posttraumatic stress disorder: Stable. 10. MRSA pneumonia: Patient on antibiotics. Clinically appears to be stable. Indications reviewed. Management plan discussed with the attending physician and the surgical list on the case. Medical decision making is of moderate complexity. 40 minutes spent on this patient with more than 50% of time spent in direct patient care. Will follow.
[2018-12-28] MEDS: ATORVASTATIN CALCIUM 20 MG TABLET PO SCH (22:01)
[2018-12-29] MEDS: NORMAL SALINE 1000 ML 1,000 ML IV PRN (03:35)
[2018-12-29 05:13] LABS: ABSOLUTE EOSINOPHILS # (AUTO) 0.3 10^3/uL (0.0-0.6); ABSOLUTE MONOCYTES (AUTO) 1.9 10^3/uL (0.1-1.4); ABSOLUTE NEUT (AUTO) 15.7 10^3/uL (1.7-8.2); BASOPHILS % (AUTO) 0.2 % (0-2); EOSINOPHILS % (AUTO) 1.7 % (0-6); HEMATOCRIT 25.3 % (37.9-51.0); HEMOGLOBIN 8.3 g/dL (13.5-17.0); LYMPHOCYTES % (AUTO) 9.9 % (13-45); MEAN CORPUSCULAR HEMOGLOBIN 28.7 pg (27.0-33.4); MEAN CORPUSCULAR HGB CONC 32.8 g/dL (32.0-36.0); MEAN CORPUSCULAR VOLUME 88 fl (80-97); MONOCYTES % (AUTO) 9.4 % (3-13); PLATELET COUNT 339 10^3/uL (150-450); RED BLOOD COUNT 2.89 10^6/uL (4.35-5.55); RED CELL DISTRIBUTION WIDTH 14.6 % (11.5-14.0); SEGMENTED NEUTROPHILS % (AUTO) 78.8 % (42-78); TOTAL CELLS COUNTED % (AUTO) 100 %; WHITE BLOOD COUNT 19.9 10^3/uL (4.0-10.5)
[2018-12-29 05:37] LABS: ALBUMIN 2.3 g/dL (3.5-5.0); ALKALINE PHOSPHATASE 82 U/L (38-126); ASPARTATE AMINO TRANSFERASE 38 U/L (17-59); BILIRUBIN,DIRECT 0.9 mg/dL (0.0-0.4); BILIRUBIN,TOTAL 1.3 mg/dL (0.2-1.3); BLOOD UREA NITROGEN 35 mg/dL (7-20); CALCIUM 7.7 mg/dL (8.4-10.2); CHLORIDE 99 mmol/L (98-107); GLUCOSE 195 mg/dL (75-110); POTASSIUM 3.1 mmol/L (3.6-5.0); TOTAL PROTEIN 5.5 g/dL (6.3-8.2)
[2018-12-29 05:43] LABS: CARBON DIOXIDE 39 mmol/L (22-30)
[2018-12-29 06:01] LABS: VANCOMYCIN,TROUGH 38.4 ug/mL (5.0-20.0)
[2018-12-29 06:12] LABS: ANION GAP 4 (5-19)
[2018-12-29] MEDS: INSULIN LISPRO 100 UNIT/ML 3 ML VIAL SUBCUT SCH ×2 (06:20→13:00)
[2018-12-29] MEDS: HEPARIN SOD (PORCINE) 5,000 UNIT/ML 1 ML VIAL SUBCUT SCH ×3 (06:20→22:39)
[2018-12-29] MEDS: MEROPENEM 1 GM in NORMAL SALINE 50 ML IV SCH ×3 (06:20→22:40)
[2018-12-29] MEDS ORDERED: POTASSI CL 20 MEQ/50 ML RIDER 20 MEQ/50 ML RTUPB IV ONE (07:30)
[2018-12-29] MEDS ORDERED: VANCOMYCIN HCL 0 MG in DEXTROSE 5%-WATER 250 ML IV NR (07:30)
[2018-12-29] MEDS: POTASSI CL 20 MEQ/50 ML RIDER 20 MEQ/50 ML RTUPB IV SCH ×2 (08:55→09:55)
[2018-12-29] MEDS: INSULIN GLARGINE,HUM.REC.ANLOG 1,000 UNIT/10 ML VIAL SUBCUT SCH (09:55)
[2018-12-29] MEDS: NITROGLYCERIN 10 MG (0.4 MG/HR) PATCH.TD24 TD SCH (09:55)
[2018-12-29] MEDS: ASPIRIN 81 MG TABLET, CHEWABLE PO SCH (09:55)
[2018-12-29] MEDS: METOPROLOL TARTRATE 50 MG TABLET PO SCH ×2 (09:55→22:40)
[2018-12-29] MEDS: HYDROMORPHONE HCL INJ/PF 2 MG/ML AMPULE IV PRN ×3 (10:08→23:03)
--- NOTE | 2018-12-29 10:23 | Progress Note ---
Provider Note Provider Note: CARDIOLOGY PROGRESS NOTE by Dr. Yulia Ramos on 12/29/2018. OBJECTIVE: Note that yesterday the patient was transferred to [facility] for complaints of shortness of breath and his O2 sats was in the 70s. The patient was initially placed on 6 L of nasal cannula and subsequently his OXYGEN saturations came up. He is now on 2 L/min.. At present the patient denies any shortness of breath. There is no chest pain or discomfort. He has G-tube is clogged and attempts are being made to unclog this. He denies any chest pain or discomfort. There is no shortness of breath now. There is no PND orthopnea. There is no atrial or ventricular arrhythmia seen. The patient states that he had a bowel movement yesterday. And is passing passing flatus. He has no nausea vomiting. His white count remains the same, and is high. PHYSICAL EXAMINATION: The patient has lost weight and is mildly obese at present. In no acute distress. Selected Entries 12/29/18 07:36 Temperature 98.9 F Temperature Axillary Source Pulse Rate 76 Respiratory 20 Rate Blood Pressure 148/75 H Blood Pressure 99 Mean BP Location Right Arm BP Position Supine O2 Sat by Pulse 98 Oximetry Oxygen Flow 2.00 Rate Oxygen Delivery Nasal Cannula Method HEAD: Is atraumatic normocephalic. EYES: Pupils equal round regular reactive to light and accommodation. Extraocular movements are normal. There is no conjunctival pallor. There is no scleral icterus. EARS: Tympanic membranes are intact. External auditory canals are clear. NOSE: There is no inflammation of the nasal mucous membrane. There is no deviated nasal septum. MOUTH: Mucous membranes of the mouth are moist. There is an NG tube in situ. There is no bleeding from the gums. THROAT: There is no redness of the oropharynx. There is no exudates. SKIN: There is no skin rashes. 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 There is no particular ecchymosis. NECK: Is supple. There is no hepatospleno megaly. There is no lymphadenopathy. There is no goiter. There is no accessory muscles of respiration use. Trachea central. LUNGS: Is clear to auscultation percussion. There is no rhonchi rales or wheezing. HEART: S1-S2 is heard. S1 is of normal intensity. There is no S3 gallop there is no S4 gallop. There is systolic murmur left sternal border and the apex there is no rub. ABDOMEN: Is mildly distended. Soft. There is tenderness over the incision. The abdominal dressing is dry and clean. Bowel sounds are heard. EXTREMITIES: Femorals are slightly diminished. There is no femoral bruits. Leg pulses are well felt. There is no pedal edema. There is no DVT or cellulitis. BEHAVIORAL MEDICAL DIRECTOR: The patient is conscious awake alert oriented x3 with no focal deficits. PSYCHIATRIC: Patient judgment insight are intact his affect is normal. Labs- All tests 24 hr 12/28/18 12/28/18 12/28/18 13:08 18:27 22:52 WBC RBC Hgb Hct MCV MCH MCHC RDW Plt Count Lymph % (Auto) [place] % (Auto) Eos % (Auto) Baso % (Auto) Absolute Neuts (auto) Absolute Lymphs (auto) Absolute Monos (auto) Absolute Eos (auto) Absolute Basos (auto) Seg Neutrophils % Sodium Potassium Chloride Carbon Dioxide Anion Gap BUN Creatinine Est GFR ( Amer) Est GFR (MDRD) Non-Af Glucose POC Glucose 254 H 245 H 230 H Calcium Total Bilirubin Direct Bilirubin Neonat Total Bilirubin Neonat Direct Bilirubin Neonat Indirect Bili AST ALT Alkaline Phosphatase Total Protein Albumin Time Trough Drawn Vancomycin Trough 12/29/18 12/29/18 12/29/18 04:55 04:55 04:55 WBC 19.9 H RBC 2.89 L Hgb 8.3 L Hct 25.3 L MCV 88 MCH 28.7 MCHC 32.8 RDW 14.6 H Plt Count 339 Lymph % (Auto) 9.9 L [place] % (Auto) 9.4 Eos % (Auto) 1.7 Baso % (Auto) 0.2 Absolute Neuts (auto) 15.7 H Absolute Lymphs (auto) 2.0 Absolute Monos (auto) 1.9 H Absolute Eos (auto) 0.3 Absolute Basos (auto) 0.0 Seg Neutrophils % 78.8 H Sodium 141.5 Potassium 3.1 L Chloride 99 Carbon Dioxide 39 H Anion Gap 4 L BUN 35 H Creatinine 2.17 H Est GFR ( Amer) 37 L Est GFR (MDRD) Non-Af 30 L Glucose 195 H POC Glucose Calcium 7.7 L Total Bilirubin 1.3 Direct Bilirubin 0.9 H Neonat Total Bilirubin Not Reportable Neonat Direct Bilirubin Not Reportable Neonat Indirect Bili Not Reportable AST 38 ALT 12 Alkaline Phosphatase 82 Total Protein 5.5 L Albumin 2.3 L Time Trough Drawn 0455 Vancomycin Trough 38.4 H 12/29/18 06:13 WBC RBC Hgb Hct MCV MCH MCHC RDW Plt Count Lymph % (Auto) [place] % (Auto) Eos % (Auto) Baso % (Auto) Absolute Neuts (auto) Absolute Lymphs (auto) Absolute Monos (auto) Absolute Eos (auto) Absolute Basos (auto) Seg Neutrophils % Sodium Potassium Chloride Carbon Dioxide Anion Gap BUN Creatinine Est GFR ( Amer) Est GFR (MDRD) Non-Af Glucose POC Glucose 184 H Calcium Total Bilirubin Direct Bilirubin Neonat Total Bilirubin Neonat Direct Bilirubin Neonat Indirect Bili AST ALT Alkaline Phosphatase Total Protein Albumin Time Trough Drawn Vancomycin Trough Chest X-Ray 12/18/18 00:00 IMPRESSION: Support lines and tubes have been placed as described. Chest X-Ray 12/18/18 00:00 IMPRESSION: Lines and catheters in place, as above.. Probable tiny bibasilar effusions copyright 2010 [employer]- All Rights Reserved Chest X-Ray 12/19/18 00:00 IMPRESSION: 1. No significant interval changes since examination performed earlier on the same date, 12/19/2018. No evidence of pneumothorax. 2. Support tubes and line are unchanged. Chest X-Ray 12/19/18 06:00 IMPRESSION: STABLE APPEARANCE OF THE CHEST. SUPPORT DEVICES UNCHANGED. Chest X-Ray 12/20/18 06:00 IMPRESSION: 1. Tubes and lines as above. 2. Unchanged radiographic appearance of the chest with low inspiratory lung volumes, a probable left retrocardiac opacity, and mild cardiomegaly. Chest X-Ray 12/21/18 06:00 IMPRESSION: Stable appearance of the lungs. Chest X-Ray 12/23/18 00:00 IMPRESSION: Unchanged radiographic appearance of the chest. IMPRESSION/RECOMMENDATION: 1. A small non-ST elevation [place] cannot be entirely excluded. Patient without anginal symptoms. In the troponins trended down. The patient has been started on tube feedings. Hence we will start the patient on Lopressor 25 mg p.o. every 12 hours by the NG tube and increase as tolerated. Later we will start the patient on aspirin. The patient is EKG is much improved. Continue Lopressor at 50 mg by the NG tube every 12 hours. Will repeat EKG in a.m.. 2. Status post Whipple procedure complicated by postoperative bleeding, redo surgery, and cardiac arrest, and massive blood transfusions. At present patient stable. 3. Pancreatic cancer. 4.Coronary artery disease. History of LAD stent in 2012: No anginal symptoms. 5. Hypertension: Blood pressure well controlled 6. Diabetes mellitus: Continue Accu-Cheks and sliding insulin scale coverage. 7. Chronic kidney disease: Appears to be stable avoid nephrotoxic drugs 8. History of depression: At present clinically the patient does not appear to be depressed. 9. Posttraumatic stress disorder: Stable. 10. MRSA pneumonia: Patient on antibiotics. Clinically appears to be stable. Shortness of breath transiently with decreased oxygen saturation. Will check a chest x-ray. Medications reviewed. Management plan discussed with attending physician on the case and the surgical list. Medical decision making is of moderate complexity. 40 minutes spent on this patient more than 50% of time spent in direct patient care. Will follow.
--- NOTE | 2018-12-29 10:27 | PDOC PROGRESS REPORT ---
Subjective Progress Note for:: 12/29/18 Subjective:: RAJAT DANIEL is a 68 year old male past medical history of TIM, diabetes, PTSD, cirrhosis due to hepatitis C, dyslipidemia, CKD, admitted on 12/18/2018 for distal pancreatectomy/splenectomy for underlying tumor of the pancreatic head unfortunately patient went into hemorrhagic shock intraoperatively and was transferred to ICU. Patient transferred back to floor on 12/27/2018 and hospitalist was consulted for medical management. 12/28/2018. No acute events overnight. Patient had one large bowel movement today. Passing flatus. Denies any fever, chills, nausea, vomiting, diarrhea or any urinary symptoms. 12/29/2018. Patient upgraded to IMCU last night due to worsening respiratory symptoms. On my encounter this morning patient is currently resting in bed, on supplemental oxygen, curious about when he can eat, passing flatus, has not had a bowel movement, complaining of diffuse abdominal pain 1/5 on intensity scale, denies any fever, chills, nausea, vomiting, diarrhea, constipation or any urinary symptoms. Feeds are on hold due to high residuals. Reason For Visit: PANCREATIC CANCER Physical Exam Vital Signs: Temp Pulse Resp BP Pulse Ox 98.9 F 76 20 148/75 H 97 12/29/18 07:36 12/29/18 07:36 12/29/18 07:36 12/29/18 07:36 12/29/18 08:00 Intake & Output 12/28/18 12/29/18 12/30/18 07:59 06:59 06:59 Intake Total 75 Output Total Balance 75 Weight General appearance: PRESENT: no acute distress, morbidly obese, well-developed, well-nourished Respiratory exam: PRESENT: clear to auscultation roman. ABSENT: rales, rhonchi, wheezes Cardiovascular exam: PRESENT: RRR. ABSENT: diastolic murmur, rubs, systolic murmur GI/Abdominal exam: PRESENT: normal bowel sounds, soft, other - NG tube in place, on intermittent suction, high residuals.. ABSENT: distended, guarding, mass, organolmegaly, rebound, tenderness Neurological exam: PRESENT: alert, awake, oriented to person, oriented to place, oriented to time, oriented to situation, CN II-XII grossly intact. ABSENT: motor sensory deficit Results Laboratory Results: 12/29/18 04:55 12/29/18 04:55 12/29/18 12/29/18 04:55 04:55 WBC 19.9 H RBC 2.89 L Hgb 8.3 L Hct 25.3 L MCV 88 MCH 28.7 MCHC 32.8 RDW 14.6 H Plt Count 339 Seg Neutrophils % 78.8 H Sodium 141.5 Potassium 3.1 L Chloride 99 Carbon Dioxide 39 H Anion Gap 4 L BUN 35 H Creatinine 2.17 H Est GFR ( Amer) 37 L Glucose 195 H Calcium 7.7 L Total Bilirubin 1.3 AST 38 Alkaline Phosphatase 82 Total Protein 5.5 L Albumin 2.3 L 12/23/18 12:15 Blood Blood Culture - Final NO GROWTH IN 5 DAYS 12/23/18 10:00 Blood Blood Culture - Final NO GROWTH IN 5 DAYS 12/18/18 12/19/18 12/20/18 22:08 12:00 11:10 Troponin I 0.059 0.148 0.038 Impressions: Chest X-Ray 12/23/18 00:00 IMPRESSION: Unchanged radiographic appearance of the chest. Assessment and Plan - Diagnosis (1) Acute kidney injury superimposed on CKD Is this a current diagnosis for this admission?: Yes Plan: Prerenal. Likely due to hemorrhagic shock, dehydration and vancomycin. Making adequate urine output. Worsening of creatinine. Increase IV fluids to 125 mL/h. Monitor volume status, electrolytes and replace as needed. Avoid nephrotoxic meds. BMP tomorrow. Note: Vancomycin trough 38.4. I have discussed this with the pharmacist who told me trough is not accurate as it was drawn right after vancomycin i nitiation. I have changed vancomycin dosage to be dosed and managed by pharmacy (2) Hypertension Is this a current diagnosis for this admission?: Yes Plan: Not optimized. Home meds are: Losartan 100 mg p.o. daily Lasix 20 mg p.o. daily Carvedilol 25 mg p.o. daily. Amlodipine 10 mg p.o. daily. Currently on metoprolol tartrate 25 mg p.o. twice daily. Will start amlodipine 10 mg p.o. daily. Monitor vital status, adjust meds as needed. (3) Acute respiratory failure with hypoxia Is this a current diagnosis for this admission?: Yes Plan: Resolved. Extubated on 1027. SPO2 WNL on 2 L NC. (4) Pancreatic cancer Qualifiers: Pancreatic malignancy location: head of pancreas Qualified Code(s): C25.0 - Malignant neoplasm of head of pancreas Is this a current diagnosis for this admission?: Yes Plan: Status post distal pancreatectomy and splenectomy on 12/18/2018. Outpatient oncology and PCP follow-up. Defer management to surgical team. (5) Coronary artery disease Qualifiers: Coronary Disease-Associated Artery/Lesion type: [place] artery [place] vs. transplanted heart: [place] heart Associated angina: angina presence unspecified Qualified Code(s): I25.10 - Atherosclerotic heart disease of [place] coronary artery without angina pectoris Is this a current diagnosis for this admission?: Yes Plan: Continue antiplatelets, statins, beta-blockers. Resume meds once kidney function is stabilized. Outpatient PCP and cardiology follow-up. Cardiology on board. (6) Diabetes mellitus type 2 in obese Is this a current diagnosis for this admission?: Yes Plan: Controlled. Hemoglobin A1c 6.7%. Continue diabetic diet, prandial, basal and sliding scale insulin. Continue Accu-Chek, hypoglycemic protocol. Adjust dose as needed. Outpatient PCP follow-up. (7) MRSA pneumonia Qualifiers: Lung location: unspecified part of lung Is this a current diagnosis for this admission?: Yes Plan: Afebrile. Still significant leukocytosis. No bandemia. SPO2 WNL on 2 L NC. 12/21/2017 sputum culture positive for MRSA. Cultures negative so far. Day 7 IV vancomycin. Day 7 IV meropenem. Continue empiric IV antibiotic Repeat blood and sputum cultures. Follow-up cultures. (8) Sepsis Qualifiers: Sepsis type: sepsis due to unspecified organism Qualified Code(s): A41.9 - Sepsis, unspecified organism Is this a current diagnosis for this admission?: Yes Plan: Resolved. Vitals WNL. Likely due to underlying infectious process. Continue empiric IV antibiotics. Monitor vitals.
[2018-12-29 10:57] LABS: VANCOMYCIN,TROUGH 35.7 ug/mL (5.0-20.0)
[2018-12-29] MEDS: AMLODIPINE BESYLATE 10 MG TABLET PO SCH (11:51)
--- NOTE | 2018-12-29 11:57 | RADIOLOGY REPORT (SQ) ---
EXAM DESCRIPTION: CHEST SINGLE VIEW COMPLETED DATE/TIME: 12/29/2018 11:32 am REASON FOR STUDY: SOB /MRSA pneumoniia. COMPARISON: 12/23/2018. FINDINGS: Nasogastric tube down, tip appropriately in the stomach. Relatively stable mediastinal widening with probable uncoiling of the aorta. Stable heart size. Low lung volumes. Mild opacity left base may be due to technique and low lung volumes. No pneumotho rax or definite infiltrate otherwise. TECHNICAL DOCUMENTATION: JOB ID: [id number] Reading location - IP/workstation name: [email or web address]
[2018-12-29] MEDS ORDERED: DEXTROSE 50%-WATER SYRINGE 25 GM/50 ML DOSE IV PRN (15:00)
[2018-12-29] MEDS ORDERED: DEXTROSE 40% GEL 15 GM TUBE PO PRN (15:00)
[2018-12-29] MEDS ORDERED: DEXTROSE 10%-WATER 1,000 ML IV PRN (15:00)
[2018-12-29] MEDS ORDERED: GLUCAGON,HUMAN RECOMB 1 MG INJ IM PRN (15:00)
[2018-12-29] MEDS ORDERED: DEXTROSE 50%-WATER SYRINGE 12.5 GM/25 ML DOSE IV PRN (15:00)
[2018-12-29] MEDS ORDERED: DEXTROSE 40% GEL 15 GM TUBE X 2 PO PRN (15:00)
[2018-12-29] MEDS ORDERED: SODIUM BICARBONATE 650 MG TABLET PO ONE (15:30)
[2018-12-29] MEDS: INSULIN REG, HUMAN 100 UNIT/ML 3 ML VIAL (PYX) SUBCUT SCH (17:57)
[2018-12-29] MEDS: AMINO ACIDS 5 %/DEXTROSE 20 % 1,000 ML IV PRN (17:57)
--- NOTE | 2018-12-29 19:27 | PDOC PROGRESS REPORT ---
Subjective Progress Note for:: 12/29/18 Subjective:: feels better today passing flatus still with High ng op jtube currently clogged started on tpn per hospitilist. Reason For Visit: PANCREATIC CANCER Physical Exam Vital Signs: Temp Pulse Resp BP Pulse Ox 98.5 F 78 20 138/83 H 96 12/29/18 16:47 12/29/18 16:47 12/29/18 16:47 12/29/18 16:47 12/29/18 16:47 Intake & Output 12/28/18 12/29/18 12/30/18 07:59 06:59 06:59 Intake Total 1225 Output Total 500 Balance 725 Weight General appearance: PRESENT: no acute distress Head exam: PRESENT: normocephalic Eye exam: PRESENT: EOMI Ear exam: PRESENT: normal external ear exam Mouth exam: PRESENT: moist Neck exam: PRESENT: full ROM Respiratory exam: PRESENT: decreased breath sounds Cardiovascular exam: PRESENT: RRR Pulses: PRESENT: normal radial pulses, normal femoral pulses GI/Abdominal exam: PRESENT: soft Extremities exam: PRESENT: full ROM Musculoskeletal exam: PRESENT: full ROM Psychiatric exam: PRESENT: appropriate affect Skin exam: PRESENT: dry Results Laboratory Results: 12/29/18 04:55 12/29/18 04:55 12/29/18 12/29/18 04:55 04:55 WBC 19.9 H RBC 2.89 L Hgb 8.3 L Hct 25.3 L MCV 88 MCH 28.7 MCHC 32.8 RDW 14.6 H Plt Count 339 Seg Neutrophils % 78.8 H Sodium 141.5 Potassium 3.1 L Chloride 99 Carbon Dioxide 39 H Anion Gap 4 L BUN 35 H Creatinine 2.17 H Est GFR ( Amer) 37 L Glucose 195 H Calcium 7.7 L Total Bilirubin 1.3 AST 38 Alkaline Phosphatase 82 Total Protein 5.5 L Albumin 2.3 L 12/28/18 08:22 Blood Blood Culture (PCR) - Final Staphylococcus Species 12/18/18 12/19/18 12/20/18 22:08 12:00 11:10 Troponin I 0.059 0.148 0.038 Assessment & Plan - Diagnosis (1) Pancreatic malignancy syndrome Is this a current diagnosis for this admission?: Yes - Time Time Spent with patient: 35 or more minutes - Plan Summary Plan Summary: gastric ileus s/p pancreatectomy still with high ng output now on tpn and replacement fluids wbc sl improved today 19.9 plan will obtain kub to assess the j tube and ng may need ugi to r/o outlet obstruction cont tpn.
--- NOTE | 2018-12-29 21:08 | RADIOLOGY REPORT (SQ) ---
EXAM DESCRIPTION: CLINICAL HISTORY: 68 years Male ,ng and jtube position COMPARISON: None. TECHNIQUE: Single view of the abdomen was provided.. FINDINGS:Upper abdomen incompletely included on the image. Nasogastric tube with the tip in the gastric body. There are surgical drains in the right mid abdomen. Midline kiarra are noted. No evidence of obstruction. IMPRESSION: Nasogastric tube in the gastric body
[2018-12-29] MEDS: ATORVASTATIN CALCIUM 20 MG TABLET PO SCH (22:40)
[2018-12-30] MEDS: INSULIN REG, HUMAN 100 UNIT/ML 3 ML VIAL (PYX) SUBCUT SCH ×5 (00:46→23:56)
[2018-12-30] MEDS: NORMAL SALINE 1000 ML 1,000 ML IV PRN ×2 (03:08→17:45)
[2018-12-30] MEDS: MEROPENEM 1 GM in NORMAL SALINE 50 ML IV SCH (06:09)
[2018-12-30] MEDS: HEPARIN SOD (PORCINE) 5,000 UNIT/ML 1 ML VIAL SUBCUT SCH ×3 (06:11→22:13)
[2018-12-30 06:52] LABS: ABSOLUTE EOSINOPHILS # (AUTO) 0.5 10^3/uL (0.0-0.6); ABSOLUTE LYMPHOCYTES (AUTO) 1.7 10^3/uL (0.5-4.7); ABSOLUTE MONOCYTES (AUTO) 2.1 10^3/uL (0.1-1.4); ABSOLUTE NEUT (AUTO) 14.4 10^3/uL (1.7-8.2); BASOPHILS % (AUTO) 0.2 % (0-2); EOSINOPHILS % (AUTO) 2.9 % (0-6); HEMATOCRIT 26.2 % (37.9-51.0); HEMOGLOBIN 8.4 g/dL (13.5-17.0); LYMPHOCYTES % (AUTO) 9.1 % (13-45); MEAN CORPUSCULAR HEMOGLOBIN 28.1 pg (27.0-33.4); MEAN CORPUSCULAR VOLUME 88 fl (80-97); MONOCYTES % (AUTO) 11.3 % (3-13); PLATELET COUNT 377 10^3/uL (150-450); RED BLOOD COUNT 2.99 10^6/uL (4.35-5.55); RED CELL DISTRIBUTION WIDTH 14.4 % (11.5-14.0); SEGMENTED NEUTROPHILS % (AUTO) 76.5 % (42-78); TOTAL CELLS COUNTED % (AUTO) 100 %; WHITE BLOOD COUNT 18.8 10^3/uL (4.0-10.5)
[2018-12-30 06:58] LABS: INTERNATIONAL RATION (INR) 1.13; PROTHROMBIN TIME 14.6 SEC (11.4-15.4)
[2018-12-30 07:14] LABS: ALBUMIN 2.5 g/dL (3.5-5.0); ALKALINE PHOSPHATASE 92 U/L (38-126); ASPARTATE AMINO TRANSFERASE 53 U/L (17-59); BILIRUBIN,DIRECT 0.8 mg/dL (0.0-0.4); BILIRUBIN,TOTAL 1.3 mg/dL (0.2-1.3); BLOOD UREA NITROGEN 34 mg/dL (7-20); CALCIUM 7.8 mg/dL (8.4-10.2); GLUCOSE 268 mg/dL (75-110); PHOSPHORUS 3.1 mg/dL (2.5-4.5); POTASSIUM 3.7 mmol/L (3.6-5.0); TOTAL PROTEIN 5.8 g/dL (6.3-8.2); TRIGLYCERIDES 133 mg/dL (<150)
[2018-12-30 07:18] LABS: CARBON DIOXIDE 38 mmol/L (22-30); CHLORIDE 101 mmol/L (98-107)
[2018-12-30 07:22] LABS: ANION GAP 4 (5-19)
[2018-12-30 07:24] LABS: PREALBUMIN 6.1 mg/dL (17.6-36.0)
--- NOTE | 2018-12-30 07:46 | PDOC PROGRESS REPORT ---
Subjective Progress Note for:: 12/30/18 Subjective:: feels ok having bm still with high ng op Reason For Visit: PANCREATIC CANCER Physical Exam Vital Signs: Temp Pulse Resp BP Pulse Ox 98.7 F 66 16 159/78 H 96 12/30/18 04:33 12/30/18 04:33 12/30/18 04:33 12/30/18 04:33 12/30/18 04:33 Intake & Output 12/29/18 12/30/18 12/31/18 06:59 06:59 06:59 Intake Total 1325 Output Total 895 Balance 430 Weight General appearance: PRESENT: no acute distress Head exam: PRESENT: normocephalic Eye exam: PRESENT: EOMI Ear exam: PRESENT: normal external ear exam Mouth exam: PRESENT: moist Neck exam: PRESENT: full ROM Cardiovascular exam: PRESENT: RRR Pulses: PRESENT: normal radial pulses, normal femoral pulses Vascular exam: PRESENT: normal capillary refill GI/Abdominal exam: PRESENT: soft Rectal exam: PRESENT: deferred Extremities exam: PRESENT: full ROM Musculoskeletal exam: PRESENT: full ROM Neurological exam: PRESENT: alert, awake, oriented to person, oriented to place Skin exam: PRESENT: dry Results Laboratory Results: 12/30/18 06:43 12/30/18 06:43 12/30/18 12/30/18 06:43 06:43 WBC 18.8 H RBC 2.99 L Hgb 8.4 L Hct 26.2 L MCV 88 MCH 28.1 MCHC 32.0 RDW 14.4 H Plt Count 377 Seg Neutrophils % 76.5 Sodium 143.4 Potassium 3.7 Chloride 101 Carbon Dioxide 38 H Anion Gap 4 L BUN 34 H Creatinine 1.90 H Est GFR ( Amer) 43 L Glucose 268 H Calcium 7.8 L Phosphorus 3.1 Magnesium 2.8 H Total Bilirubin 1.3 AST 53 Alkaline Phosphatase 92 Total Protein 5.8 L Albumin 2.5 L Prealbumin 6.1 L Triglycerides 133 12/28/18 08:22 Blood Blood Culture (PCR) - Final Staphylococcus Species 12/18/18 12/19/18 12/20/18 22:08 12:00 11:10 Troponin I 0.059 0.148 0.038 Impressions: KUB X-Ray 12/29/18 00:00 IMPRESSION: Nasogastric tube in the gastric body Assessment & Plan - Diagnosis (1) Pancreatic malignancy syndrome Is this a current diagnosis for this admission?: Yes - Time Time Spent with patient: 35 or more minutes - Plan Summary Plan Summary: doing better today' now having regular bm's kub reviwed from yesterday no kink in j tube ng in proper position labs this am reviewed creat better, wbc down will cont with current rx attmpt to declog j-tube consider ugi with gastrograffin today
[2018-12-30] MEDS: FAT EMULSIONS 250 ML IV SCH (09:57)
[2018-12-30] MEDS: AMLODIPINE BESYLATE 10 MG TABLET PO SCH (09:59)
[2018-12-30] MEDS: METOPROLOL TARTRATE 50 MG TABLET PO SCH ×2 (09:59→22:06)
[2018-12-30] MEDS: NITROGLYCERIN 10 MG (0.4 MG/HR) PATCH.TD24 TD SCH (10:00)
[2018-12-30] MEDS: INSULIN GLARGINE,HUM.REC.ANLOG 1,000 UNIT/10 ML VIAL SUBCUT SCH (10:01)
[2018-12-30] MEDS: ASPIRIN 81 MG TABLET, CHEWABLE PO SCH (10:02)
[2018-12-30] MEDS ORDERED: ERYTHROMYCIN LACTOBIONATE 250 MG in NORMAL SALINE 100 ML IV SCH (11:30)
--- NOTE | 2018-12-30 11:48 | PDOC PROGRESS REPORT ---
Subjective Progress Note for:: 12/30/18 Subjective:: RAJAT DANIEL is a 68 year old male past medical history of TIM, diabetes, PTSD, cirrhosis due to hepatitis C, dyslipidemia, CKD, admitted on 12/18/2018 for distal pancreatectomy/splenectomy for underlying tumor of the pancreatic head unfortunately patient went into hemorrhagic shock intraoperatively and was transferred to ICU. Patient transferred back to floor on 12/27/2018 and hospitalist was consulted for medical management. 12/28/2018. No acute events overnight. Patient had one large bowel movement today. Passing flatus. Denies any fever, chills, nausea, vomiting, diarrhea or any urinary symptoms. 12/29/2018. Patient upgraded to IMCU last night due to worsening respiratory symptoms. On my encounter this morning patient is currently resting in bed, on supplemental oxygen, curious about when he can eat, passing flatus, has not had a bowel movement, complaining of diffuse abdominal pain 1/5 on intensity scale, denies any fever, chills, nausea, vomiting, diarrhea, constipation or any urinary symptoms. Feeds are on hold due to high residuals. 12/30/2018. No acute events overnight. Patient feeling better, having normal bowel movements, denies any fever, chills, nausea, vomiting, diarrhea, constipation or urinary symptoms. Reason For Visit: PANCREATIC CANCER Physical Exam Vital Signs: Temp Pulse Resp BP Pulse Ox 98.6 F 70 16 176/80 H 96 12/30/18 07:59 12/30/18 07:59 12/30/18 07:59 12/30/18 07:59 12/30/18 07:59 Intake & Output 12/29/18 12/30/18 12/31/18 06:59 06:59 06:59 Intake Total 1355 Output Total 995 Balance 360 Weight 106.6 kg 106.6 kg General appearance: PRESENT: obese Respiratory exam: PRESENT: clear to auscultation roman. ABSENT: rales, rhonchi, wheezes Cardiovascular exam: PRESENT: RRR. ABSENT: diastolic murmur, rubs, systolic murmur GI/Abdominal exam: PRESENT: normal bowel sounds, soft. ABSENT: distended, guarding, mass, organolmegaly, rebound, tenderness Neurological exam: PRESENT: alert, awake, oriented to person, oriented to place, oriented to time, oriented to situation, CN II-XII grossly intact. ABSENT: motor sensory deficit Results Laboratory Results: 12/30/18 06:43 12/30/18 06:43 12/30/18 12/30/18 06:43 06:43 WBC 18.8 H RBC 2.99 L Hgb 8.4 L Hct 26.2 L MCV 88 MCH 28.1 MCHC 32.0 RDW 14.4 H Plt Count 377 Seg Neutrophils % 76.5 Sodium 143.4 Potassium 3.7 Chloride 101 Carbon Dioxide 38 H Anion Gap 4 L BUN 34 H Creatinine 1.90 H Est GFR ( Amer) 43 L Glucose 268 H Calcium 7.8 L Phosphorus 3.1 Magnesium 2.8 H Total Bilirubin 1.3 AST 53 Alkaline Phosphatase 92 Total Protein 5.8 L Albumin 2.5 L Prealbumin 6.1 L Triglycerides 133 12/28/18 08:22 Blood Blood Culture (PCR) - Final Staphylococcus Species 12/18/18 12/19/18 12/20/18 22:08 12:00 11:10 Troponin I 0.059 0.148 0.038 Impressions: KUB X-Ray 12/29/18 00:00 IMPRESSION: Nasogastric tube in the gastric body Assessment and Plan - Diagnosis (1) Acute kidney injury superimposed on CKD Is this a current diagnosis for this admission?: Yes Plan: Improving. Prerenal. Likely due to hemorrhagic shock, dehydration and vancomycin. Making adequate urine output. Improving creatinine. Continue IV fluids to 125 mL/h guided by volume status. Monitor volume status, electrolytes and replace as needed. Avoid nephrotoxic meds. BMP tomorrow. Note: Vancomycin trough 38.4. I have discussed this with the pharmacist who told me trough is not accurate as it was drawn right after vancomycin initiatio n. I have changed vancomycin dosage to be dosed and managed by pharmacy (2) Hypertension Is this a current diagnosis for this admission?: Yes Plan: Not optimized. Home meds are: Losartan 100 mg p.o. daily Lasix 20 mg p.o. daily Carvedilol 25 mg p.o. daily. Amlodipine 10 mg p.o. daily. Currently on metoprolol tartrate 25 mg p.o. twice daily, amlodipine 10 mg p.o. daily. Continue IV hydralazine and labetalol as needed. Monitor vital status, adjust meds as needed. (3) Acute respiratory failure with hypoxia Is this a current diagnosis for this admission?: Yes Plan: Resolved. Extubated on 1027. SPO2 WNL on 2 L NC. (4) Pancreatic cancer Qualifiers: Pancreatic malignancy location: head of pancreas Qualified Code(s): C25.0 - Malignant neoplasm of head of pancreas Is this a current diagnosis for this admission?: Yes Plan: Status post distal pancreatectomy and splenectomy on 12/18/2018. Outpatient oncology and PCP follow-up. Defer management to surgical team. (5) Coronary artery disease Qualifiers: Coronary Disease-Associated Artery/Lesion type: [place] artery [place] vs. transplanted heart: [place] heart Associated angina: angina presence unspecified Qualified Code(s): I25.10 - Atherosclerotic heart disease of [place] coronary artery without angina pectoris Is this a current diagnosis for this admission?: Yes Plan: Continue antiplatelets, statins, beta-blockers. Resume meds once kidney function is stabilized. Outpatient PCP and cardiology follow-up. Cardiology on board. (6) Diabetes mellitus type 2 in obese Is this a current diagnosis for this admission?: Yes Plan: Not optimized. Hemoglobin A1c 6.7%. Continue diabetic diet, prandial, basal and sliding scale insulin. Continue Accu-Chek, hypoglycemic protocol. Adjust dose as needed. Outpatient PCP follow-up. (7) MRSA pneumonia Qualifiers: Lung location: unspecified part of lung Is this a current diagnosis for this admission?: Yes Plan: Afebrile. Still significant leukocytosis. No bandemia. SPO2 WNL on 2 L NC. 12/21/2017 sputum culture positive for MRSA. Cultures negative so far. Day 8 IV vancomycin. Day 8 IV meropenem. Continue empiric IV antibiotic Repeat blood and sputum cultures. Follow-up cultures. (8) Sepsis Qualifiers: Sepsis type: sepsis due to unspecified organism Qualified Code(s): A41.9 - Sepsis, unspecified organism Is this a current diagnosis for this admission?: Yes Plan: Resolved. Vitals WNL. Likely due to underlying infectious process. Continue empiric IV antibiotics. Monitor vitals.
[2018-12-30] MEDS: ERYTHROMYCIN LACTOBIONATE 250 MG in NORMAL SALINE 100 ML IV SCH ×2 (12:56→17:43)
[2018-12-30] MEDS: HYDROMORPHONE HCL INJ/PF 2 MG/ML AMPULE IV PRN ×2 (12:59→21:13)
--- NOTE | 2018-12-30 15:33 | RADIOLOGY REPORT (SQ) ---
EXAM DESCRIPTION: UGI SERIES COMPLETED DATE/TIME: 12/30/2018 9:41 am REASON FOR STUDY: s/p gastrojejunostomy, eval for obstruction C25.9 MALIGNANT NEOPLASM OF PANCREAS, UNSPECIFIED COMPARISON: None. TECHNIQUE: Under fluoroscopic guidance, Gastrografin was instilled through the patient's indwelling NG tube. Fluoroscopic spot images and routine radiographic images acquired and stored on PACS. 12 MM BARIUM TABLET GIVEN: No LIMITATIONS: None. FLUOROSCOPY TIME: FLUORO TIME: 3.2 minutes 16 images saved to PACS. FINDINGS: STOMACH: Surgical changes consistent with gastric jejunal bypass GASTRIC OUTLET: Delay in gastric emptying due to long tapered narrowing at the anastomosis, possibly related to postop edema. No evidence for contrast extravasation. PROXIMAL JEJUNUM: Normal mucosal pattern. No dilatation, segmentation, strictures or masses. NON-GI TRACT STRUCTURES: No significant finding. OTHER: No other significant finding. IMPRESSION: NARROWING AT THE GASTROJEJUNAL ANASTOMOSIS WHICH DELAYS GASTRIC EMPTYING INTO THE SMALL BOWEL. COMMENT: NONE Quality ID [id number]: Final reports for procedures using fluoroscopy that document radiation exposure delmy kirby, or exposure time and number of fluorographic images (if radiation exposure indices are not avail able) TECHNICAL DOCUMENTATION: JOB ID: [id number] [employer]- All Rights Reserved Reading location - IP/workstation name: [email or web address] [id number]
[2018-12-30] MEDS ORDERED: INSULIN LISPRO 100 UNIT/ML 3 ML VIAL SUBCUT SCH (16:00)
[2018-12-30] MEDS: AMINO ACIDS 5 %/DEXTROSE 20 % 1,000 ML IV PRN (18:16)
[2018-12-30 19:34] LABS: VANCOMYCIN,TROUGH 23.6 ug/mL (5.0-20.0)
--- NOTE | 2018-12-30 21:57 | Progress Note ---
Provider Note Provider Note: Cardiology PROGRESS NOTE by 12/30/2018. SUBJECTIVE: The patient denies any chest pain or discomfort. There is no sh ortness of breath. There is no PND orthopnea. There is no atrial or ventricular arrhythmias seen. Note that the patient's jejunostomy feeding tube has been clogged. Hence the patient is getting TPN via central line. Hence his medications are also through the central line. He still has significant drainage from the KARIN drain. PHYSICAL EXAMINATION: The patient is mildly obese. In no acute distress. Selected Entries 12/30/18 16:01 Temperature 98.6 F Temperature Oral Source Pulse Rate 80 Respiratory 17 Rate Blood Pressure 158/88 H Blood Pressure 111 Mean BP Location Right Arm BP Position Sitting O2 Sat by Pulse 94 Oximetry Oxygen Flow 2.00 Rate Oxygen Delivery Nasal Cannula Method HEAD: Is atraumatic. Normocephalic. EYES: Pupils are equal round reactive to light. ENT is negative. NECK: Supple. There is no JVD. There is no accessory muscle respiration use. Trachea central. LUNGS: There is diminished air entry and prolonged expiration. On percussion there is hyperresonance. There there are no rhonchi rales or wheezing.. HEART: S1-S2 is heard. S1 is of normal intensity. There is no S3 gallop. There is no S4 gallop there is systolic murmur in the left sternal border and the apex there is no rub. ABDOMEN: Is obese. There is no hepatospleno megaly. Bowel sounds well heard. EXTREMITIES: Femorals are diminished there is no femoral bruits. Leg pulses are diminished. There is trace pedal edema in the right lower extremity. There is no DVT or cellulitis. There is no calf tenderness. There is no cyanosis or clubbing.VENUE ATTENDANT: The patient is conscious awake alert oriented x3 with no focal deficit. PSYCHIATRIC: Patient judgment insight are intact his affect is normal. HEAD: Is atraumatic normocephalic. EYES: Pupils equal round regular reactive to light and accommodation. Extraocular movements are normal. There is no conjunctival pallor. There is no scleral icterus. EARS: Tympanic membranes are intact. External auditory canals are clear. NOSE: There is no inflammation of the nasal mucous membrane. There is no deviated nasal septum. MOUTH: Mucous membranes of the mouth are moist. There is an NG tube in situ. There is no bleeding from the gums. THROAT: There is no redness of the oropharynx. There is no exudates. SKIN: There is no skin rashes. 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 There is no particular ecchymosis. NECK: Is supple. There is no hepatospleno megaly. There is no lymphadenopathy. There is no goiter. There is no accessory muscles of respiration use. Trachea central. LUNGS: Is clear to auscultation percussion. There is no rhonchi rales or wheezing. HEART: S1-S2 is heard. S1 is of normal intensity. There is no S3 gallop there is no S4 gallop. There is systolic murmur left sternal border and the apex there is no rub. ABDOMEN: Is mildly distended. Soft. There is tenderness over the incision. The abdominal dressing is dry and clean. Bowel sounds are heard. EXTREMITIES: Femorals are slightly diminished. There is no femoral bruits. Leg pulses are well felt. There is no pedal edema. There is no DVT or cellulitis. VENUE ATTENDANT: The patient is conscious awake alert oriented x3 with no focal deficits. PSYCHIATRIC: Patient judgment insight are intact his affect is normal. Labs- All tests 24 hr 12/30/18 12/30/18 12/30/18 00:39 06:04 06:43 WBC 18.8 H RBC 2.99 L Hgb 8.4 L Hct 26.2 L MCV 88 MCH 28.1 MCHC 32.0 RDW 14.4 H Plt Count 377 Lymph % (Auto) 9.1 L [place] % (Auto) 11.3 Eos % (Auto) 2.9 Baso % (Auto) 0.2 Absolute Neuts (auto) 14.4 H Absolute Lymphs (auto) 1.7 Absolute Monos (auto) 2.1 H Absolute Eos (auto) 0.5 Absolute Basos (auto) 0.0 Seg Neutrophils % 76.5 PT INR Sodium Potassium Chloride Carbon Dioxide Anion Gap BUN Creatinine Est GFR ( Amer) Est GFR (MDRD) Non-Af Glucose POC Glucose 200 H 232 H Calcium Phosphorus Magnesium Total Bilirubin Direct Bilirubin Neonat Total Bilirubin Neonat Direct Bilirubin Neonat Indirect Bili AST ALT Alkaline Phosphatase Total Protein Albumin Prealbumin Triglycerides Time Trough Drawn Vancomycin Trough 12/30/18 12/30/18 12/30/18 06:43 06:43 12:34 WBC RBC Hgb Hct MCV MCH MCHC RDW Plt Count Lymph % (Auto) [place] % (Auto) Eos % (Auto) Baso % (Auto) Absolute Neuts (auto) Absolute Lymphs (auto) Absolute Monos (auto) Absolute Eos (auto) Absolute Basos (auto) Seg Neutrophils % PT 14.6 INR 1.13 Sodium 143.4 Potassium 3.7 Chloride 101 Carbon Dioxide 38 H Anion Gap 4 L BUN 34 H Creatinine 1.90 H Est GFR ( Amer) 43 L Est GFR (MDRD) Non-Af 35 L Glucose 268 H POC Glucose 335 H Calcium 7.8 L Phosphorus 3.1 Magnesium 2.8 H Total Bilirubin 1.3 Direct Bilirubin 0.8 H Neonat Total Bilirubin Not Reportable Neonat Direct Bilirubin Not Reportable Neonat Indirect Bili Not Reportable AST 53 ALT 13 Alkaline Phosphatase 92 Total Protein 5.8 L Albumin 2.5 L Prealbumin 6.1 L Triglycerides 133 Time Trough Drawn Vancomycin Trough 12/30/18 12/30/18 12/30/18 18:28 18:45 18:45 WBC RBC Hgb Hct MCV MCH MCHC RDW Plt Count Lymph % (Auto) [place] % (Auto) Eos % (Auto) Baso % (Auto) Absolute Neuts (auto) Absolute Lymphs (auto) Absolute Monos (auto) Absolute Eos (auto) Absolute Basos (auto) Seg Neutrophils % PT INR Sodium Potassium Chloride Carbon Dioxide Anion Gap BUN Creatinine Est GFR ( Amer) Est GFR (MDRD) Non-Af Glucose POC Glucose 314 H Calcium Phosphorus Magnesium Total Bilirubin Direct Bilirubin Neonat Total Bilirubin Neonat Direct Bilirubin Neonat Indirect Bili AST ALT Alkaline Phosphatase Total Protein Albumin Prealbumin Triglycerides 107 Time Trough Drawn 1845 Vancomycin Trough 23.6 H Chest X-Ray 12/18/18 00:00 IMPRESSION: Support lines and tubes have been placed as described. Chest X-Ray 12/18/18 00:00 IMPRESSION: Lines and catheters in place, as above.. Probable tiny bibasilar effusions copyright 2010 [email or web address]- All Rights Reserved Chest X-Ray 12/19/18 00:00 IMPRESSION: 1. No significant interval changes since examination performed earlier on the same date, 12/19/2018. No evidence of pneumothorax. 2. Support tubes and line are unchanged. Chest X-Ray 12/19/18 06:00 IMPRESSION: STABLE APPEARANCE OF THE CHEST. SUPPORT DEVICES UNCHANGED. Chest X-Ray 12/20/18 06:00 IMPRESSION: 1. Tubes and lines as above. 2. Unchanged radiographic appearance of the chest with low inspiratory lung volumes, a probable left retrocardiac opacity, and mild cardiomegaly. Chest X-Ray 12/21/18 06:00 IMPRESSION: Stable appearance of the lungs. Chest X-Ray 12/23/18 00:00 IMPRESSION: Unchanged radiographic appearance of the chest. KUB X-Ray 12/29/18 00:00 IMPRESSION: Nasogastric tube in the gastric body Upper GI Series 12/30/18 00:00 IMPRESSION: NARROWING AT THE GASTROJEJUNAL ANASTOMOSIS WHICH DELAYS GASTRIC EMPTYING INTO THE SMALL BOWEL. IMPRESSION/RECOMMENDATION: 1. A small non-ST elevation [place] cannot be entirely excluded. Patient without anginal symptoms. In the troponins trended down. The patient has been started on tube feedings. But this had to be stopped, due to clogging of the jejunostomy feeding tube. Hence the patient is getting TPN intravenously.. We will repeat EKG in a.m. 2. Status post Whipple procedure complicated by postoperative bleeding, redo surgery, and cardiac arrest, and massive blood transfusions. At present patient stable. 3. Pancreatic cancer. 4.Coronary artery disease. History of LAD stent in 2013: No anginal symptoms. 5. Hypertension: Blood pressure well controlled 6. Diabetes mellitus: Continue Accu-Cheks and sliding insulin scale coverage. 7. Chronic kidney disease: Appears to be stable avoid nephrotoxic drugs 8. History of depression: At present clinically the patient does not appear to be depressed. 9. Posttraumatic stress disorder: Stable. 10. MRSA pneumonia: Patient on antibiotics. Clinically appears to be stable. Shortness of breath transiently with decreased oxygen saturation. Medications reviewed. Management plan discussed with attending physician on the case and the surgical list. Medical decision making is of moderate complexity. 40 minutes spent on this patient more than 50% of time spent in direct patient care. Will follow.
[2018-12-30] MEDS: ATORVASTATIN CALCIUM 20 MG TABLET PO SCH (22:06)
[2018-12-31] MEDS: LABETALOL HCL INJ 20 MG/4 ML DISP.SYRIN IV PRN
[2018-12-31] MEDS: ERYTHROMYCIN LACTOBIONATE 250 MG in NORMAL SALINE 100 ML IV SCH ×3 (03:28→17:41)
[2018-12-31] MEDS: NORMAL SALINE 1000 ML 1,000 ML IV PRN ×2 (06:02→11:27)
[2018-12-31] MEDS: HEPARIN SOD (PORCINE) 5,000 UNIT/ML 1 ML VIAL SUBCUT SCH ×3 (06:05→22:24)
[2018-12-31] MEDS: INSULIN REG, HUMAN 100 UNIT/ML 3 ML VIAL (PYX) SUBCUT SCH ×3 (06:09→18:24)
[2018-12-31] MEDS: HYDRALAZINE HCL INJ/PF 20 MG/1 ML SDV IV PRN ×2 (06:11→17:56)
[2018-12-31] MEDS: HYDROMORPHONE HCL INJ/PF 2 MG/ML AMPULE IV PRN ×3 (06:20→21:04)
[2018-12-31 06:54] LABS: ABSOLUTE EOSINOPHILS # (AUTO) 0.5 10^3/uL (0.0-0.6); ABSOLUTE MONOCYTES (AUTO) 2.4 10^3/uL (0.1-1.4); ABSOLUTE NEUT (AUTO) 12.9 10^3/uL (1.7-8.2); BASOPHILS % (AUTO) 0.1 % (0-2); EOSINOPHILS % (AUTO) 2.6 % (0-6); HEMATOCRIT 24.4 % (37.9-51.0); LYMPHOCYTES % (AUTO) 11.1 % (13-45); MEAN CORPUSCULAR HEMOGLOBIN 28.5 pg (27.0-33.4); MEAN CORPUSCULAR HGB CONC 32.4 g/dL (32.0-36.0); MEAN CORPUSCULAR VOLUME 88 fl (80-97); MONOCYTES % (AUTO) 13.3 % (3-13); PLATELET COUNT 378 10^3/uL (150-450); RED BLOOD COUNT 2.78 10^6/uL (4.35-5.55); RED CELL DISTRIBUTION WIDTH 14.4 % (11.5-14.0); SEGMENTED NEUTROPHILS % (AUTO) 72.9 % (42-78); TOTAL CELLS COUNTED % (AUTO) 100 %; WHITE BLOOD COUNT 17.7 10^3/uL (4.0-10.5)
[2018-12-31 06:55] LABS: HEMOGLOBIN 7.9 g/dL (13.5-17.0)
[2018-12-31 07:16] LABS: PHOSPHORUS 2.9 mg/dL (2.5-4.5)
[2018-12-31 07:23] LABS: PREALBUMIN 6.9 mg/dL (17.6-36.0)
--- NOTE | 2018-12-31 08:10 | PDOC PROGRESS REPORT ---
Subjective Progress Note for:: 12/31/18 Subjective:: feels ok Reason For Visit: PANCREATIC CANCER Physical Exam Vital Signs: Temp Pulse Resp BP Pulse Ox 98.3 F 75 18 187/83 H 92 12/31/18 05:58 12/31/18 05:58 12/31/18 03:24 12/31/18 05:58 12/31/18 05:58 Intake & Output 12/30/18 12/31/18 01/01/19 06:59 06:59 06:59 Intake Total 1355 2325 Output Total 995 1225 Balance 360 1100 Weight 106.6 kg 107.6 kg General appearance: PRESENT: no acute distress Head exam: PRESENT: normocephalic Eye exam: PRESENT: EOMI Mouth exam: PRESENT: moist Neck exam: PRESENT: full ROM Respiratory exam: PRESENT: clear to auscultation roman Cardiovascular exam: PRESENT: RRR Pulses: PRESENT: normal radial pulses, normal femoral pulses GI/Abdominal exam: PRESENT: soft - j-tube clogged Rectal exam: PRESENT: deferred Musculoskeletal exam: PRESENT: full ROM Neurological exam: PRESENT: alert, awake, oriented to person, oriented to place Skin exam: PRESENT: dry Results Laboratory Results: 12/31/18 06:30 12/31/18 06:30 12/30/18 12/31/18 12/31/18 18:45 06:30 06:30 WBC 17.7 H RBC 2.78 L Hgb 7.9 L Hct 24.4 L MCV 88 MCH 28.5 MCHC 32.4 RDW 14.4 H Plt Count 378 Seg Neutrophils % 72.9 Sodium Cancelled Potassium Cancelled Chloride Cancelled Carbon Dioxide Cancelled Anion Gap Cancelled BUN Cancelled Creatinine Cancelled Est GFR ( Amer) Cancelled Est GFR (Non-Af Amer) Cancelled Glucose Cancelled Calcium Cancelled Phosphorus 2.9 Total Bilirubin Cancelled AST Cancelled Alkaline Phosphatase Cancelled Total Protein Cancelled Albumin Cancelled Prealbumin 6.9 L Triglycerides 107 12/28/18 08:22 Blood Blood Culture (PCR) - Final Staphylococcus Species 12/18/18 12/19/18 12/20/18 22:08 12:00 11:10 Troponin I 0.059 0.148 0.038 Impressions: KUB X-Ray 12/29/18 00:00 IMPRESSION: Nasogastric tube in the gastric body Upper GI Series 12/30/18 00:00 IMPRESSION: NARROWING AT THE GASTROJEJUNAL ANASTOMOSIS WHICH DELAYS GASTRIC EMPTYING INTO THE SMALL BOWEL. Assessment & Plan - Diagnosis (1) Pancreatic malignancy syndrome Is this a current diagnosis for this admission?: Yes - Time Time Spent with patient: 25-34 minutes - Plan Summary Plan Summary: start ng clamping picc line today cont iv erythromycin for gastric motility pt will recieve 1 unit prbc today dc central line after picc. cont tpn.
--- NOTE | 2018-12-31 09:44 | EKG REPORT ---
SEVERITY:- BORDERLINE ECG - SINUS RHYTHM BORDERLINE LEFT AXIS DEVIATION BORDERLINE T ABNORMALITIES, INFERIOR LEADS BORDERLINE PROLONGED QT INTERVAL : Confirmed by: Amadeo Benitez 31-Dec-2018 09:43:25
[2018-12-31] MEDS ORDERED: INSULIN GLARGINE,HUM.REC.ANLOG 1,000 UNIT/10 ML VIAL SUBCUT SCH ×2 (10:00)
[2018-12-31] MEDS: METOPROLOL TARTRATE 50 MG TABLET PO SCH ×2 (10:32→22:27)
[2018-12-31] MEDS: ASPIRIN 81 MG TABLET, CHEWABLE PO SCH (10:32)
[2018-12-31] MEDS: AMLODIPINE BESYLATE 10 MG TABLET PO SCH (10:32)
[2018-12-31] MEDS: INSULIN GLARGINE,HUM.REC.ANLOG 1,000 UNIT/10 ML VIAL SUBCUT SCH (11:24)
[2018-12-31] MEDS: NITROGLYCERIN 10 MG (0.4 MG/HR) PATCH.TD24 TD SCH (11:32)
--- NOTE | 2018-12-31 14:34 | PDOC PROGRESS REPORT ---
Subjective Progress Note for:: 12/31/18 Subjective:: RAJAT DANIEL is a 68 year old male past medical history of TIM, diabetes, PTSD, cirrhosis due to hepatitis C, dyslipidemia, CKD, admitted on 12/18/2018 for distal pancreatectomy/splenectomy for underlying tumor of the pancreatic head unfortunately patient went into hemorrhagic shock intraoperatively and was transferred to ICU. Patient transferred back to floor on 12/27/2018 and hospitalist was consulted for medical management. 12/28/2018. No acute events overnight. Patient had one large bowel movement today. Passing flatus. Denies any fever, chills, nausea, vomiting, diarrhea or any urinary symptoms. 12/29/2018. Patient upgraded to IMCU last night due to worsening respiratory symptoms. On my encounter this morning patient is currently resting in bed, on supplemental oxygen, curious about when he can eat, passing flatus, has not had a bowel movement, complaining of diffuse abdominal pain 1/5 on intensity scale, denies any fever, chills, nausea, vomiting, diarrhea, constipation or any urinary symptoms. Feeds are on hold due to high residuals. 12/30/2018. No acute events overnight. Patient feeling better, having normal bowel movements, denies any fever, chills, nausea, vomiting, diarrhea, constipation or urinary symptoms. 12/31/2018. No acute events overnight. Patient stating that he is feeling better. Having normal bowel movements. Reason For Visit: PANCREATIC CANCER Physical Exam Vital Signs: Temp Pulse Resp BP Pulse Ox 98.2 F 74 14 175/79 H 98 12/31/18 14:07 12/31/18 14:07 12/31/18 14:07 12/31/18 14:07 12/31/18 14:07 Intake & Output 12/30/18 12/31/18 01/01/19 06:59 06:59 06:59 Intake Total 1355 2325 619 Output Total 995 1225 200 Balance 360 1100 419 Weight 106.6 kg 107.6 kg General appearance: PRESENT: obese Head exam: PRESENT: atraumatic, normocephalic Respiratory exam: PRESENT: clear to auscultation roman. ABSENT: rales, rhonchi, wheezes Cardiovascular exam: PRESENT: RRR. ABSENT: diastolic murmur, rubs, systolic murmur GI/Abdominal exam: PRESENT: normal bowel sounds, other - Drains in place bilaterally, right drain seems to be clogged. No fluid noted. Neurological exam: PRESENT: alert, awake, oriented to person, oriented to place, oriented to time, oriented to situation, CN II-XII grossly intact. ABSENT: motor sensory deficit Results Laboratory Results: 12/31/18 06:30 12/31/18 06:30 12/30/18 12/31/18 12/31/18 18:45 06:30 06:30 WBC 17.7 H RBC 2.78 L Hgb 7.9 L Hct 24.4 L MCV 88 MCH 28.5 MCHC 32.4 RDW 14.4 H Plt Count 378 Seg Neutrophils % 72.9 Sodium Cancelled Potassium Cancelled Chloride Cancelled Carbon Dioxide Cancelled Anion Gap Cancelled BUN Cancelled Creatinine Cancelled Est GFR ( Amer) Cancelled Est GFR (Non-Af Amer) Cancelled Glucose Cancelled Calcium Cancelled Phosphorus 2.9 Total Bilirubin Cancelled AST Cancelled Alkaline Phosphatase Cancelled Total Protein Cancelled Albumin Cancelled Prealbumin 6.9 L Triglycerides 107 Blood Type Antibody Screen 12/31/18 11:20 WBC RBC Hgb Hct MCV MCH MCHC RDW Plt Count Seg Neutrophils % Sodium Potassium Chloride Carbon Dioxide Anion Gap BUN Creatinine Est GFR ( Amer) Est GFR (Non-Af Amer) Glucose Calcium Phosphorus Total Bilirubin AST Alkaline Phosphatase Total Protein Albumin Prealbumin Triglycerides Blood Type O POSITIVE Antibody Screen NEGATIVE 12/28/18 08:22 Blood Blood Culture (PCR) - Final Staphylococcus Species 12/28/18 08:22 Blood Blood Culture - Final Staphylococcus Epidermidis 12/18/18 12/19/18 12/20/18 22:08 12:00 11:10 Troponin I 0.059 0.148 0.038 Impressions: KUB X-Ray 12/29/18 00:00 IMPRESSION: Nasogastric tube in the gastric body Upper GI Series 12/30/18 00:00 IMPRESSION: NARROWING AT THE GASTROJEJUNAL ANASTOMOSIS WHICH DELAYS GASTRIC EMPTYING INTO THE SMALL BOWEL. Assessment and Plan - Diagnosis (1) Acute kidney injury superimposed on CKD Is this a current diagnosis for this admission?: Yes Plan: Improving. Prerenal. Likely due to hemorrhagic shock, dehydration and vancomycin. Making adequate urine output. Improving creatinine. Continue IV fluids to 125 mL/h guided by volume status. Monitor volume status, electrolytes and replace as needed. Avoid nephrotoxic meds. BMP tomorrow. Note: Vancomycin trough 38.4. I have discussed this with the pharmacist who told me trough is not accurate as it was drawn right after vancomycin initiation. I have changed vancomycin dosage to be dosed and managed by pharmacy (2) Hypertension Is this a current diagnosis for this admission?: Yes Plan: Not optimized. Home meds are: Losartan 100 mg p.o. daily Lasix 20 mg p.o. daily Carvedilol 25 mg p.o. daily. Amlodipine 10 mg p.o. daily. Currently on metoprolol tartrate 25 mg p.o. twice daily, amlodipine 10 mg p.o. daily but cannot take your meds. Continue IV hydralazine and labetalol as needed. Monitor vital status, adjust meds as needed. (3) Acute respiratory failure with hypoxia Is this a current diagnosis for this admission?: Yes Plan: Resolved. Extubated on 1027. SPO2 WNL on 2 L NC. (4) Pancreatic cancer Qualifiers: Pancreatic malignancy location: head of pancreas Qualified Code(s): C25.0 - Malignant neoplasm of head of pancreas Is this a current diagnosis for this admission?: Yes Plan: Status post distal pancreatectomy and splenectomy on 12/18/2018. Outpatient oncology and PCP follow-up. Defer management to surgical team. (5) Coronary artery disease Qualifiers: Coronary Disease-Associated Artery/Lesion type: [place] artery [place] vs. transplanted heart: [place] heart Associated angina: angina presence unspecified Qualified Code(s): I25.10 - Atherosclerotic heart disease of [place] coronary artery without angina pectoris Is this a current diagnosis for this admission?: Yes Plan: Denies any anginal pain. Continue antiplatelets, statins, beta-blockers. Resume DEL once kidney function is stabilized. Outpatient PCP and cardiology follow-up. Cardiology on board. (6) Diabetes mellitus type 2 in obese Is this a current diagnosis for this admission?: Yes Plan: Follow-up as outpatient. Hemoglobin A1c 6.7%. Not optimizing while inpatient. Continue diabetic diet, prandial, basal and sliding scale insulin. Continue Accu-Chek, hypoglycemic protocol. Daily assessment as needed. Outpatient PCP follow-up. (7) MRSA pneumonia Qualifiers: Lung location: unspecified part of lung Is this a current diagnosis for this admission?: Yes Plan: Afebrile. Still significant leukocytosis. No bandemia. SPO2 WNL on 2 L NC. 12/21/2017 sputum culture positive for MRSA. Cultures negative so far. Day 9 IV vancomycin. Day 9 IV meropenem. Continue empiric IV antibiotic Repeat blood and sputum cultures. Follow-up cultures. (8) Sepsis Qualifiers: Sepsis type: sepsis due to unspecified organism Qualified Code(s): A41.9 - Sepsis, unspecified organism Is this a current diagnosis for this admission?: Yes Plan: Resolved. Vitals WNL. Likely due to underlying infectious process. Continue empiric IV antibiotics. Monitor vitals. (9) Gram-positive bacteremia Is this a current diagnosis for this admission?: Yes Plan: Due to staph epidermidis 1 out of 4 bottles. Sample taken from central line unsure of the recalled contamination. Central line has been removed and tip cultured. Repeat blood cultures have been negative. Already receiving empiric IV antibiotics for H CAP. Continue current IV antibiotics. Follow blood cultures.
--- NOTE | 2018-12-31 14:45 | RADIOLOGY REPORT (SQ) ---
EXAM DESCRIPTION: PICC INSERTION; FLUORO/CV PLACEMENT; U/S GUIDE FOR VASCULAR ACCESS COMPLETED DATE/TIME: 12/31/2018 1:15 pm; 12/31/2018 10:07 am REASON FOR STUDY: infected central line, TPN, bld transfusion ; TPN C25.9 MALIGNANT NEOPLASM OF ANTONIO CREAS, UNSPECIFIED COMPARISON: 12/29/2018 FLUOROSCOPY TIME: 0.5 seconds 2 images saved to PACS. TECHNIQUE: Fluoroscopic and ultrasound guided PICC placement. LIMITATIONS: None. PROCEDURE: After written consent and assessment were obtained, the patient was brought into the fluo roscopy room and placed supine on the table. Ultrasound evaluation of potential access sites were per formed. After successfully identifying a patent right basilic vein, the right arm was prepped and cameron ped in a sterile fashion along with the ultrasound probe. The entry site was anesthetized with 1% lid ocaine. A 21 gauge 7 cm needle was advanced through the skin and into the basilic vein under live ult rasound guidance. An ultrasound image was saved to PACS confirming access site. A .018 guide wire w as then inserted through the needle and into the venous system. The needle was then removed and an 11 blade scalpel was used to make a 1cm skin incision. A 5 fr peel-away sheath was advanced over the w bi and into the venous system. A measurement was then made using the existing wire and live fluorosc opic guidance. The wire was then removed and trimmed. The PICC was advanced through the peel-away she ath and into the venous system. The peel-away sheath was removed and the catheter was adhered to the patients arm with a stat lock. The catheter was then aspirated and flushed and a sterile bandage was placed over the access site. A fluoroscopic spot image was saved to PACS confirming the catheter tip within the cavoatrial junction. IMPRESSION: SUCCESSFUL PLACEMENT OF A 5 FR DUAL LUMEN 40 CM PICC IN THE RIGHT BASILIC VEIN. COMMENT: Patient medication list reviewed: Yes- Quality ID# 130:Eligible professional attests to doc umenting in the medical record they obtained, updated, or reviewed the patient's current medications. . Quality ID 145: Final reports for procedures using fluoroscopy that document radiation exposure delmy kirby, or exposure time and number of fluorographic images (if radiation exposure indices are not avail able) Quality ID #76: The patient was prepped and draped using maximum sterile barrier technique including cap, mask, sterile gown, sterile gloves, a large sterile sheet, hand hygiene, and 2% Chlorhexidine fo r cutaneous antisepsis. When ultrasound is used, sterile ultrasound techniques are followed requiring sterile gel and sterile probes. TECHNICAL DOCUMENTATION: JOB ID: [id number] [employer]- All Rights Reserved rev-07/13 Reading location - IP/workstation name: [email or web address]
[2018-12-31] MEDS: AMINO ACIDS 5 %/DEXTROSE 20 % 1,000 ML IV PRN (18:27)
[2018-12-31 19:11] LABS: ABSOLUTE EOSINOPHILS # (AUTO) 0.4 10^3/uL (0.0-0.6); ABSOLUTE LYMPHOCYTES (AUTO) 2.2 10^3/uL (0.5-4.7); ABSOLUTE MONOCYTES (AUTO) 2.4 10^3/uL (0.1-1.4); ABSOLUTE NEUT (AUTO) 9.7 10^3/uL (1.7-8.2); BASOPHILS % (AUTO) 0.3 % (0-2); EOSINOPHILS % (AUTO) 2.8 % (0-6); HEMATOCRIT 26.7 % (37.9-51.0); HEMOGLOBIN 8.6 g/dL (13.5-17.0); LYMPHOCYTES % (AUTO) 15.1 % (13-45); MEAN CORPUSCULAR HEMOGLOBIN 28.3 pg (27.0-33.4); MEAN CORPUSCULAR HGB CONC 32.3 g/dL (32.0-36.0); MEAN CORPUSCULAR VOLUME 88 fl (80-97); MONOCYTES % (AUTO) 16.1 % (3-13); PLATELET COUNT 361 10^3/uL (150-450); RED BLOOD COUNT 3.05 10^6/uL (4.35-5.55); RED CELL DISTRIBUTION WIDTH 14.5 % (11.5-14.0); SEGMENTED NEUTROPHILS % (AUTO) 65.7 % (42-78); TOTAL CELLS COUNTED % (AUTO) 100 %; WHITE BLOOD COUNT 14.7 10^3/uL (4.0-10.5)
[2018-12-31 19:52] LABS: VANCOMYCIN,TROUGH 17.8 ug/mL (5.0-20.0)
--- NOTE | 2018-12-31 20:53 | Progress Note ---
Provider Note Provider Note: CARDIOLOGY PROGRESS NOTE by Dr. Yulia Chavira on 12/31/2018. SUBJECTIVE: The patient had a PICC line placed. He is getting TPN parenterally. He denies any chest pain or discomfort. He is passing flatus. There is no nausea vomiting. There is no arrhythmia seen. There is no shortness of breath. There is no PND orthopnea. There is no leg edema. His blood pressure is difficult to control especially since the patient is not getting his medications orally. PHYSICAL EXAMINATION: The patient is mildly obese. In no acute distress NG tube is in situ. Selected Entries 12/31/18 12/31/18 08:05 13:34 Temperature 98.2 F Temperature Oral Source Pulse Rate 74 Respiratory 14 Rate Blood Pressure 175/79 H Blood Pressure 111 Mean BP Location Left Arm O2 Sat by Pulse 98 Oximetry Oxygen Flow 2.50 Rate Oxygen Delivery Nasal Cannula Nasal Cannula Method HEAD: Is atraumatic. Normocephalic. EYES: Pupils are equal round reactive to light. ENT is negative. NECK: Supple. There is no JVD. There is no accessory muscle respiration use. Trachea central. LUNGS: There is diminished air entry and prolonged expiration. On percussion there is hyperresonance. There there are no rhonchi rales or wheezing.. HEART: S1-S2 is heard. S1 is of normal i ntensity. There is no S3 gallop. There is no S4 gallop there is systolic murmur in the left sternal border and the apex there is no rub. ABDOMEN: Is obese. There is mild abdominal distention. There is no hepatospleno megaly. Bowel sounds heard. EXTREMITIES: Femorals are diminished there is no femoral bruits. Leg pulses are diminished. There is trace pedal edema in the right lower extremity. There is no DVT or cellulitis. There is no calf tenderness. 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 PSYCHIATRIC: Patient judgment insight are intact his affect is normal. Labs- All tests 24 hr 12/30/18 12/31/18 12/31/18 23:52 05:56 06:30 WBC RBC Hgb Hct MCV MCH MCHC RDW Plt Count Lymph % (Auto) [place] % (Auto) Eos % (Auto) Baso % (Auto) Absolute Neuts (auto) Absolute Lymphs (auto) Absolute Monos (auto) Absolute Eos (auto) Absolute Basos (auto) Seg Neutrophils % Sodium Cancelled Potassium Cancelled Chloride Cancelled Carbon Dioxide Cancelled Anion Gap Cancelled BUN Cancelled Creatinine Cancelled Est GFR ( Amer) Cancelled Est GFR (Non-Af Amer) Cancelled Est GFR (MDRD) Non-Af Cancelled Glucose Cancelled POC Glucose 361 H 299 H Calcium Cancelled Phosphorus 2.9 Total Bilirubin Cancelled Direct Bilirubin Cancelled Neonat Total Bilirubin Cancelled Neonat Direct Bilirubin Cancelled Neonat Indirect Bili Cancelled AST Cancelled ALT Cancelled Alkaline Phosphatase Cancelled Total Protein Cancelled Albumin Cancelled Prealbumin 6.9 L EGFR Cancelled Time Trough Drawn Vancomycin Trough Blood Type Antibody Screen Crossmatch 12/31/18 12/31/18 12/31/18 06:30 11:20 11:46 WBC 17.7 H RBC 2.78 L Hgb 7.9 L Hct 24.4 L MCV 88 MCH 28.5 MCHC 32.4 RDW 14.4 H Plt Count 378 Lymph % (Auto) 11.1 L [place] % (Auto) 13.3 H Eos % (Auto) 2.6 Baso % (Auto) 0.1 Absolute Neuts (auto) 12.9 H Absolute Lymphs (auto) 2.0 Absolute Monos (auto) 2.4 H Absolute Eos (auto) 0.5 Absolute Basos (auto) 0.0 Seg Neutrophils % 72.9 Sodium Potassium Chloride Carbon Dioxide Anion Gap BUN Creatinine Est GFR ( Amer) Est GFR (Non-Af Amer) Est GFR (MDRD) Non-Af Glucose POC Glucose 311 H Calcium Phosphorus Total Bilirubin Direct Bilirubin Neonat Total Bilirubin Neonat Direct Bilirubin Neonat Indirect Bili AST ALT Alkaline Phosphatase Total Protein Albumin Prealbumin EGFR Time Trough Drawn Vancomycin Trough Blood Type O POSITIVE Antibody Screen NEGATIVE Crossmatch See Detail 12/31/18 12/31/18 12/31/18 18:09 18:45 18:45 WBC 14.7 H RBC 3.05 L Hgb 8.6 L Hct 26.7 L MCV 88 MCH 28.3 MCHC 32.3 RDW 14.5 H Plt Count 361 Lymph % (Auto) 15.1 [place] % (Auto) 16.1 H Eos % (Auto) 2.8 Baso % (Auto) 0.3 Absolute Neuts (auto) 9.7 H Absolute Lymphs (auto) 2.2 Absolute Monos (auto) 2.4 H Absolute Eos (auto) 0.4 Absolute Basos (auto) 0.0 Seg Neutrophils % 65.7 Sodium Potassium Chloride Carbon Dioxide Anion Gap BUN Creatinine Est GFR ( Amer) Est GFR (Non-Af Amer) Est GFR (MDRD) Non-Af Glucose POC Glucose 294 H Calcium Phosphorus Total Bilirubin Direct Bilirubin Neonat Total Bilirubin Neonat Direct Bilirubin Neonat Indirect Bili AST ALT Alkaline Phosphatase Total Protein Albumin Prealbumin EGFR Time Trough Drawn 1845 Vancomycin Trough 17.8 Blood Type Antibody Screen Crossmatch Chest X-Ray 12/18/18 00:00 IMPRESSION: Support lines and tubes have been placed as described. Chest X-Ray 12/18/18 00:00 IMPRESSION: Lines and catheters in place, as above.. Probable tiny bibasilar effusions copyright 2010 [employer]- All Rights Reserved Chest X-Ray 12/19/18 00:00 IMPRESSION: 1. No significant interval changes since examination performed earlier on the same date, 12/19/2018. No evidence of pneumothorax. 2. Support tubes and line are unchanged. Chest X-Ray 12/19/18 06:00 IMPRESSION: STABLE APPEARANCE OF THE CHEST. SUPPORT DEVICES UNCHANGED. Chest X-Ray 12/20/18 06:00 IMPRESSION: 1. Tubes and lines as above. 2. Unchanged radiographic appearance of the chest with low inspiratory lung volumes, a probable left retrocardiac opacity, and mild cardiomegaly. Chest X-Ray 12/21/18 06:00 IMPRESSION: Stable appearance of the lungs. Chest X-Ray 12/23/18 00:00 IMPRESSION: Unchanged radiographic appearance of the chest. KUB X-Ray 12/29/18 00:00 IMPRESSION: Nasogastric tube in the gastric body Upper GI Series 12/30/18 00:00 IMPRESSION: NARROWING AT THE GASTROJEJUNAL ANASTOMOSIS WHICH DELAYS GASTRIC EMPTYING INTO THE SMALL BOWEL. Guidance Fluoroscopy 12/31/18 00:00 IMPRESSION: SUCCESSFUL PLACEMENT OF A 5 FR DUAL LUMEN 40 CM PICC IN THE RIGHT BASILIC VEIN. Interventional Vascular Procedure 12/31/18 00:00 IMPRESSION: SUCCESSFUL PLACEMENT OF A 5 FR DUAL LUMEN 40 CM PICC IN THE RIGHT BASILIC VEIN. PICC Line Insertion 12/31/18 00:00 IMPRESSION: SUCCESSFUL PLACEMENT OF A 5 FR DUAL LUMEN 40 CM PICC IN THE RIGHT BASILIC VEIN. IMPRESSION/RECOMMENDATION: 1. A small non-ST elevation [place] cannot be entirely excluded. Patient without anginal symptoms. In the troponins trended down. The patient has been started on tube feedings. But this had to be stopped, due to clogging of the jejunostomy feeding tube. Hence the patient is getting TPN intravenously.. We will repeat EKG in a.m. 2. Status post Whipple procedure complicated by postoperative bleeding, redo surgery, and cardiac arrest, and massive blood transfusions. At present patient stable. 3. Pancreatic cancer. 4.Coronary artery disease. History of LAD stent in 2012: No anginal symptoms. 5. Hypertension: Blood pressure not well controlled since the patient is not taking orally we will start the patient on a clonidine patch. 6. Diabetes mellitus: Continue Accu-Cheks and sliding insulin scale coverage. 7. Chronic kidney disease: Appears to be stable avoid nephrotoxic drugs 8. History of depression: At present clinically the patient does not appear to be depressed. 9. Posttraumatic stress disorder: Stable. 10. MRSA pneumonia: Patient on antibiotics. Clinically appears to be stable. Shortness of breath transiently with decreased oxygen saturation. Medications reviewed. New medications added. Medical regimen and management plan discussed with attending physician on the case and the surgical list. Medical decision making is of moderate complexity. 40 minutes spent on this patient more than 50% of time spent in direct patient care. Will follow.
[2018-12-31] MEDS: ATORVASTATIN CALCIUM 20 MG TABLET PO SCH (22:27)
[2018-12-31] MEDS: NORMAL SALINE 10 ML SDV (SCHEDULED) IV SCH (22:30)
[2019-01-01] MEDS: HYDRALAZINE HCL INJ/PF 20 MG/1 ML SDV IV PRN ×2 (00:12→05:35)
[2019-01-01] MEDS: INSULIN REG, HUMAN 100 UNIT/ML 3 ML VIAL (PYX) SUBCUT SCH ×4 (00:13→19:10)
[2019-01-01] MEDS: ERYTHROMYCIN LACTOBIONATE 250 MG in NORMAL SALINE 100 ML IV SCH ×3 (01:57→19:10)
[2019-01-01] MEDS: HYDROMORPHONE HCL INJ/PF 2 MG/ML AMPULE IV PRN ×4 (02:36→21:10)
[2019-01-01] MEDS: LABETALOL HCL INJ 20 MG/4 ML DISP.SYRIN IV PRN (03:50)
[2019-01-01] MEDS: NORMAL SALINE 1000 ML 1,000 ML IV PRN ×2 (04:50→15:56)
[2019-01-01] MEDS: HEPARIN SOD (PORCINE) 5,000 UNIT/ML 1 ML VIAL SUBCUT SCH ×3 (05:31→22:26)
[2019-01-01 06:05] LABS: ABSOLUTE EOSINOPHILS # (AUTO) 0.5 10^3/uL (0.0-0.6); ABSOLUTE LYMPHOCYTES (AUTO) 1.7 10^3/uL (0.5-4.7); ABSOLUTE MONOCYTES (AUTO) 2.4 10^3/uL (0.1-1.4); BASOPHILS % (AUTO) 0.2 % (0-2); EOSINOPHILS % (AUTO) 3.1 % (0-6); HEMATOCRIT 27.3 % (37.9-51.0); MEAN CORPUSCULAR HEMOGLOBIN 28.9 pg (27.0-33.4); MEAN CORPUSCULAR HGB CONC 32.9 g/dL (32.0-36.0); MEAN CORPUSCULAR VOLUME 88 fl (80-97); MONOCYTES % (AUTO) 15.6 % (3-13); PLATELET COUNT 386 10^3/uL (150-450); RED CELL DISTRIBUTION WIDTH 15.1 % (11.5-14.0); SEGMENTED NEUTROPHILS % (AUTO) 70.1 % (42-78); TOTAL CELLS COUNTED % (AUTO) 100 %; WHITE BLOOD COUNT 15.7 10^3/uL (4.0-10.5)
[2019-01-01 06:23] LABS: PHOSPHORUS 2.9 mg/dL (2.5-4.5)
[2019-01-01 06:30] LABS: PREALBUMIN 6.8 mg/dL (17.6-36.0)
[2019-01-01 07:10] LABS: BLOOD UREA NITROGEN 25 mg/dL (7-20); GLUCOSE 325 mg/dL (75-110); POTASSIUM 3.9 mmol/L (3.6-5.0)
[2019-01-01 07:15] LABS: CARBON DIOXIDE 35 mmol/L (22-30); CHLORIDE 108 mmol/L (98-107)
[2019-01-01 07:19] LABS: ANION GAP 4 (5-19)
--- NOTE | 2019-01-01 07:42 | PDOC PROGRESS REPORT ---
Subjective Progress Note for:: 01/01/19 Subjective:: frustrated he is still in hospital Reason For Visit: PANCREATIC CANCER Physical Exam Vital Signs: Temp Pulse Resp BP Pulse Ox 99.0 F 96 20 176/75 H 90 L 01/01/19 03:37 01/01/19 03:37 01/01/19 03:37 01/01/19 03:37 01/01/19 03:37 Intake & Output 12/31/18 01/01/19 01/02/19 06:59 06:59 06:59 Intake Total 2325 2284 Output Total 1225 950 Balance 1100 1334 Weight 107.6 kg 106.9 kg General appearance: PRESENT: no acute distress Head exam: PRESENT: normocephalic Eye exam: PRESENT: EOMI Ear exam: PRESENT: normal external ear exam Mouth exam: PRESENT: moist Neck exam: PRESENT: full ROM Respiratory exam: PRESENT: clear to auscultation roman Cardiovascular exam: PRESENT: RRR Pulses: PRESENT: +1 pedal pulses bilateral, +2 pedal pulses bilateral GI/Abdominal exam: PRESENT: soft Rectal exam: PRESENT: deferred Extremities exam: PRESENT: full ROM Musculoskeletal exam: PRESENT: full ROM Neurological exam: PRESENT: alert, awake, oriented to person, oriented to place, oriented to time, oriented to situation Psychiatric exam: PRESENT: appropriate affect Skin exam: PRESENT: dry Results Laboratory Results: 01/01/19 05:42 01/01/19 05:42 12/31/18 12/31/18 01/01/19 11:20 18:45 05:42 WBC 14.7 H RBC 3.05 L Hgb 8.6 L Hct 26.7 L MCV 88 MCH 28.3 MCHC 32.3 RDW 14.5 H Plt Count 361 Seg Neutrophils % 65.7 Sodium 146.7 H Potassium 3.9 Chloride 108 H Carbon Dioxide 35 H Anion Gap 4 L BUN 25 H Creatinine 1.88 H Est GFR ( Amer) 43 L Glucose 325 H Calcium 8.0 L Phosphorus Prealbumin Blood Type O POSITIVE Antibody Screen NEGATIVE 01/01/19 01/01/19 05:42 05:42 WBC 15.7 H RBC 3.10 L Hgb 9.0 L Hct 27.3 L MCV 88 MCH 28.9 MCHC 32.9 RDW 15.1 H Plt Count 386 Seg Neutrophils % 70.1 Sodium Potassium Chloride Carbon Dioxide Anion Gap BUN Creatinine Est GFR ( Amer) Glucose Calcium Phosphorus 2.9 Prealbumin 6.8 L Blood Type Antibody Screen 12/28/18 08:22 Blood Blood Culture (PCR) - Final Staphylococcus Species 12/28/18 08:22 Blood Blood Culture - Final Staphylococcus Epidermidis 12/18/18 12/19/18 12/20/18 22:08 12:00 11:10 Troponin I 0.059 0.148 0.038 Impressions: KUB X-Ray 12/29/18 00:00 IMPRESSION: Nasogastric tube in the gastric body Upper GI Series 12/30/18 00:00 IMPRESSION: NARROWING AT THE GASTROJEJUNAL ANASTOMOSIS WHICH DELAYS GASTRIC EMPTYING INTO THE SMALL BOWEL. Guidance Fluoroscopy 12/31/18 00:00 IMPRESSION: SUCCESSFUL PLACEMENT OF A 5 FR DUAL LUMEN 40 CM PICC IN THE RIGHT BASILIC VEIN. Interventional Vascular Procedure 12/31/18 00:00 IMPRESSION: SUCCESSFUL PLACEMENT OF A 5 FR DUAL LUMEN 40 CM PICC IN THE RIGHT BASILIC VEIN. PICC Line Insertion 12/31/18 00:00 IMPRESSION: SUCCESSFUL PLACEMENT OF A 5 FR DUAL LUMEN 40 CM PICC IN THE RIGHT BASILIC VEIN. Assessment & Plan - Diagnosis (1) Pancreatic malignancy syndrome Is this a current diagnosis for this admission?: Yes - Time Time Spent with patient: 35 or more minutes - Plan Summary Plan Summary: ng output less yesterday picc line placed central line removed on tpn wbc 15k, trending down received 1 prbc yesterday with appropriated rise in hct passing stool plan will dc ng today cont npo add reglan in no nausea or gastric retention tomorrow, will start clears. once he is curtis po and gastric atony resolves he can be discharged.
[2019-01-01] MEDS: METOPROLOL TARTRATE 50 MG TABLET PO SCH ×2 (09:55→21:12)
[2019-01-01] MEDS: AMLODIPINE BESYLATE 10 MG TABLET PO SCH (09:55)
[2019-01-01] MEDS: ASPIRIN 81 MG TABLET, CHEWABLE PO SCH (09:55)
[2019-01-01] MEDS ORDERED: CLONIDINE 0.1 MG/24 HR PATCH.TDWK TD SCH (10:00)
[2019-01-01] MEDS: NITROGLYCERIN 10 MG (0.4 MG/HR) PATCH.TD24 TD SCH (10:58)
[2019-01-01] MEDS: INSULIN GLARGINE,HUM.REC.ANLOG 1,000 UNIT/10 ML VIAL SUBCUT SCH (10:59)
[2019-01-01] MEDS: METOCLOPRAMIDE HCL INJ/PF 10 MG/2 ML SDV IV SCH ×3 (10:59→21:10)
[2019-01-01] MEDS: NORMAL SALINE 10 ML SDV (SCHEDULED) IV SCH ×2 (11:01→21:12)
[2019-01-01] MEDS: AMINO ACIDS 5 %/DEXTROSE 20 % 1,000 ML IV PRN (14:54)
--- NOTE | 2019-01-01 16:41 | PDOC PROGRESS REPORT ---
Subjective Progress Note for:: 01/01/19 Subjective:: No adverse events overnight. Apparently he was looking okay this morning when Dr. Balbuena came to see him but when I came in he had shaking chills. He was not febrile. His vital signs were stable. He continues to have a lot of oozing and drainage around the drain site. It appears mostly serous. Reason For Visit: PANCREATIC CANCER Physical Exam Vital Signs: Temp Pulse Resp BP Pulse Ox 98.8 F 91 18 173/81 H 95 01/01/19 11:14 01/01/19 14:00 01/01/19 11:14 01/01/19 11:14 01/01/19 11:14 Intake & Output 12/31/18 01/01/19 01/02/19 06:59 06:59 06:59 Intake Total 2325 2284 1000 Output Total 1225 1485 Balance 0318 272 2559 Weight 107.6 kg 106.9 kg General appearance: PRESENT: cooperative, disheveled, mild distress, obese Respiratory exam: PRESENT: rhonchi, symmetrical, tachypnea. ABSENT: accessory muscle use, chest wall tenderness, crackles, prolonged expiratory phas, u nlabored, wheezes Cardiovascular exam: PRESENT: RRR Pulses: PRESENT: normal carotid pulses Vascular exam: PRESENT: normal capillary refill GI/Abdominal exam: PRESENT: distended, hypoactive bowel sounds, soft, other - KARIN drain in place with bilious colored fluid, midline incision is unremarkable, ban dages placed this morning shows shadowing of serous fluid. ABSENT: guarding, rebound, tenderness Extremities exam: PRESENT: +1 edema. ABSENT: clubbing Musculoskeletal exam: PRESENT: normal inspection. ABSENT: deformity Neurological exam: PRESENT: awake, oriented to person, oriented to place Psychiatric exam: PRESENT: flat affect Skin exam: PRESENT: dry, warm Results Laboratory Results: 01/01/19 05:42 01/01/19 05:42 12/31/18 01/01/19 01/01/19 18:45 05:42 05:42 WBC 14.7 H RBC 3.05 L Hgb 8.6 L Hct 26.7 L MCV 88 MCH 28.3 MCHC 32.3 RDW 14.5 H Plt Count 361 Seg Neutrophils % 65.7 Sodium 146.7 H Potassium 3.9 Chloride 108 H Carbon Dioxide 35 H Anion Gap 4 L BUN 25 H Creatinine 1.88 H Est GFR ( Amer) 43 L Glucose 325 H Calcium 8.0 L Phosphorus 2.9 Prealbumin 6.8 L 01/01/19 05:42 WBC 15.7 H RBC 3.10 L Hgb 9.0 L Hct 27.3 L MCV 88 MCH 28.9 MCHC 32.9 RDW 15.1 H Plt Count 386 Seg Neutrophils % 70.1 Sodium Potassium Chloride Carbon Dioxide Anion Gap BUN Creatinine Est GFR ( Amer) Glucose Calcium Phosphorus Prealbumin 12/18/18 12/19/18 12/20/18 22:08 12:00 11:10 Troponin I 0.059 0.148 0.038 Impressions: KUB X-Ray 12/29/18 00:00 IMPRESSION: Nasogastric tube in the gastric body Upper GI Series 12/30/18 00:00 IMPRESSION: NARROWING AT THE GASTROJEJUNAL ANASTOMOSIS WHICH DELAYS GASTRIC EMPTYING INTO THE SMALL BOWEL. Guidance Fluoroscopy 12/31/18 00:00 IMPRESSION: SUCCESSFUL PLACEMENT OF A 5 FR DUAL LUMEN 40 CM PICC IN THE RIGHT BASILIC VEIN. Interventional Vascular Procedure 12/31/18 00:00 IMPRESSION: SUCCESSFUL PLACEMENT OF A 5 FR DUAL LUMEN 40 CM PICC IN THE RIGHT BASILIC VEIN. PICC Line Insertion 12/31/18 00:00 IMPRESSION: SUCCESSFUL PLACEMENT OF A 5 FR DUAL LUMEN 40 CM PICC IN THE RIGHT BASILIC VEIN. Assessment and Plan - Diagnosis (1) Acute blood loss as cause of postoperative anemia Is this a current diagnosis for this admission?: Yes Plan: Status post red cell infusion, hemoglobin stable (2) Acute kidney injury superimposed on CKD Is this a current diagnosis for this admission?: Yes Plan: Creatinine stabilized in the other end of his typical range (3) Acute respiratory failure with hypoxia Is this a current diagnosis for this admission?: Yes Plan: Continue supplemental O2 to maintain SPO2 greater than 90% (4) Cirrhosis of liver Qualifiers: Hepatic cirrhosis type: unspecified hepatic cirrhosis Ascites presence: without ascites Qualified Code(s): K74.60 - Unspecified cirrhosis of liver Is this a current diagnosis for this admission?: Yes Plan: Monitoring volume status closely (5) MRSA pneumonia Qualifiers: Lung location: unspecified part of lung Is this a current diagnosis for this admission?: Yes Plan: He has had 10 days of broad-spectrum antibiotics at this point, will continue antibiotics based on his presentation this morning (6) Pancreatic cancer Qualifiers: Pancreatic malignancy location: head of pancreas Qualified Code(s): C25.0 - Malignant neoplasm of head of pancreas Is this a current diagnosis for this admission?: Yes Plan: Status post distal pancreatectomy and splenectomy on 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 Outpatient oncology and PCP follow-up. Defer management to surgical team. - Time Time Spent with patient: 25-34 minutes
[2019-01-01] MEDS: ATORVASTATIN CALCIUM 20 MG TABLET PO SCH (21:12)
[2019-01-01] MEDS: VANCOMYCIN HCL 750 MG in DEXTROSE 5%-WATER 250 ML IV SCH (22:28)
--- NOTE | 2019-01-01 22:28 | Progress Note ---
Provider Note Provider Note: CARDIOLOGY PROGRESS NOTE by Dr. Yulia Ramos on 01/01/2019. SUBJECTIVE: Noted the patient denies any chest pain or discomfort. There is no shortness of breath. The patient's NG tube has been removed and the patient has some nausea, but no vomiting. He is passing flatus. There is no TIA or CVA symptoms. There is no atrial or ventricular arrhythmia seen on the monitor. The patient will be started on clonidine patch. We will also increase the dose of Transderm Nitropatch. PHYSICAL EXAMINATION: The patient is mildly obese in no acute distress. Selected Entries 01/01/19 08:21 Temperature 98.7 F Temperature Oral Source Pulse Rate 82 Respiratory 16 Rate Blood Pressure 163/72 H Blood Pressure 102 Mean BP Location Left Arm BP Position Sitting O2 Sat by Pulse 96 Oximetry Oxygen Flow 3.00 Rate Oxygen Delivery Nasal Cannula Method HEAD: Is atraumatic. Normocephalic. EYES: Pupils are equal round reactive to light. ENT is negative. NECK: Supple. There is no JVD. There is no accessory muscle respiration use. Trachea central. LUNGS: There is diminished air entry and prolonged expiration. On percussion there is hyperresonance. There there are no rhonchi rales or wheezing.. HEART: S1-S2 is heard. S1 is of normal intensity. There is no S3 gallop. There is no S4 gallop there is systolic murmur in the left sternal border and the apex there is no rub. ABDOMEN: Is obese. There is mild abdominal distention. There is no hepatospleno megaly. Bowel sounds heard. EXTREMITIES: Femorals are diminished there is no femoral bruits. Leg pulses are diminished. There is trace pedal edema in the right lower extremity. There is no DVT or cellulitis. There is no calf tenderness. 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 PSYCHIATRIC: Patient judgment insight are intact his affect is normal. Labs- All tests 24 hr 01/01/19 01/01/19 01/01/19 00:06 05:23 05:42 WBC RBC Hgb Hct MCV MCH MCHC RDW Plt Count Lymph % (Auto) Barry % (Auto) Eos % (Auto) Baso % (Auto) Absolute Neuts (auto) Absolute Lymphs (auto) Absolute Monos (auto) Absolute Eos (auto) Absolute Basos (auto) Seg Neutrophils % Sodium 146.7 H Potassium 3.9 Chloride 108 H Carbon Dioxide 35 H Anion Gap 4 L BUN 25 H Creatinine 1.88 H Est GFR ( Amer) 43 L Est GFR (MDRD) Non-Af 36 L Glucose 325 H POC Glucose 295 H 306 H Calcium 8.0 L Phosphorus Prealbumin 01/01/19 01/01/19 01/01/19 05:42 05:42 08:20 WBC 15.7 H RBC 3.10 L Hgb 9.0 L Hct 27.3 L MCV 88 MCH 28.9 MCHC 32.9 RDW 15.1 H Plt Count 386 Lymph % (Auto) 11.0 L Barry % (Auto) 15.6 H Eos % (Auto) 3.1 Baso % (Auto) 0.2 Absolute Neuts (auto) 11.0 H Absolute Lymphs (auto) 1.7 Absolute Monos (auto) 2.4 H Absolute Eos (auto) 0.5 Absolute Basos (auto) 0.0 Seg Neutrophils % 70.1 Sodium Potassium Chloride Carbon Dioxide Anion Gap BUN Creatinine Est GFR ( Amer) Est GFR (MDRD) Non-Af Glucose POC Glucose 340 H Calcium Phosphorus 2.9 Prealbumin 6.8 L 01/01/19 01/01/19 11:13 18:02 WBC RBC Hgb Hct MCV MCH MCHC RDW Plt Count Lymph % (Auto) [place] % (Auto) Eos % (Auto) Baso % (Auto) Absolute Neuts (auto) Absolute Lymphs (auto) Absolute Monos (auto) Absolute Eos (auto) Absolute Basos (auto) Seg Neutrophils % Sodium Potassium Chloride Carbon Dioxide Anion Gap BUN Creatinine Est GFR ( Amer) Est GFR (MDRD) Non-Af Glucose POC Glucose 350 H 300 H Calcium Phosphorus Prealbumin Chest X-Ray 12/18/18 00:00 IMPRESSION: Support lines and tubes have been placed as described. Chest X-Ray 12/18/18 00:00 IMPRESSION: Lines and catheters in place, as above.. Probable tiny bibasilar effusions copyright 2010 [employer]- All Rights Reserved Chest X-Ray 12/19/18 00:00 IMPRESSION: 1. No significant interval changes since examination performed earlier on the same date, 12/19/2018. No evidence of pneumothorax. 2. Support tubes and line are unchanged. Chest X-Ray 12/19/18 06:00 IMPRESSION: STABLE APPEARANCE OF THE CHEST. SUPPORT DEVICES UNCHANGED. Chest X-Ray 12/20/18 06:00 IMPRESSION: 1. Tubes and lines as above. 2. Unchanged radiographic appearance of the chest with low inspiratory lung volumes, a probable left retrocardiac opacity, and mild cardiomegaly. Chest X-Ray 12/21/18 06:00 IMPRESSION: Stable appearance of the lungs. Chest X-Ray 12/23/18 00:00 IMPRESSION: Unchanged radiographic appearance of the chest. KUB X-Ray 12/29/18 00:00 IMPRESSION: Nasogastric tube in the gastric body Upper GI Series 12/30/18 00:00 IMPRESSION: NARROWING AT THE GASTROJEJUNAL ANASTOMOSIS WHICH DELAYS GASTRIC EMPTYING INTO THE SMALL BOWEL. Guidance Fluoroscopy 12/31/18 00: IMPRESSION: SUCCESSFUL PLACEMENT OF A 5 FR DUAL LUMEN 40 CM PICC IN THE RIGHT BASILIC VEIN. Interventional Vascular Procedure 12/31/18 00:00 IMPRESSION: SUCCESSFUL PLACEMENT OF A 5 FR DUAL LUMEN 40 CM PICC IN THE RIGHT BASILIC VEIN. PICC Line Insertion 12/31/18 00:00 IMPRESSION: SUCCESSFUL PLACEMENT OF A 5 FR DUAL LUMEN 40 CM PICC IN THE RIGHT BASILIC VEIN. IMPRESSION/RECOMMENDATION: 1. A small non-ST elevation [place] cannot be entirely excluded. Patient without anginal symptoms. In the troponins trended down. The patient has been started on tube feedings. But this had to be stopped, due to clogging of the jejunostomy feeding tube. Hence the patient is getting TPN intravenously.. Will increase Nitropatch to 15 mg per 24-hour daily 2. Status post Whipple procedure complicated by postoperative bleeding, redo surgery, and cardiac arrest, and massive blood transfusions. At present patient stable. 3. Pancreatic cancer. 4.Coronary artery disease. History of LAD stent in 2013: No anginal symptoms. 5. Hypertension: Blood pressure not well controlled since the patient is not taking orally we will start the patient on a clonidine patch. 6. Diabetes mellitus: Continue Accu-Cheks and sliding insulin scale coverage. 7. Chronic kidney disease: Appears to be stable avoid nephrotoxic drugs 8. History of depression: At present clinically the patient does not appear to be depressed. 9. Posttraumatic stress disorder: Stable. 10. MRSA pneumonia: Patient on antibiotics. Clinically appears to be stable. Shortness of breath transiently with decreased oxygen saturation. Occasions reviewed. New medications are ordered. Medications and management plan discussed with the hospitalist attending provider on the case. Medical decision making I was of high complexity in view of the need to add new medications. 40 minutes spent on this patient more than 50% of time spent direct patient care. Will follow.
[2019-01-02] MEDS: INSULIN REG, HUMAN 100 UNIT/ML 3 ML VIAL (PYX) SUBCUT SCH ×4 (00:45→17:22)
[2019-01-02] MEDS: ERYTHROMYCIN LACTOBIONATE 250 MG in NORMAL SALINE 100 ML IV SCH ×3 (01:59→17:22)
[2019-01-02] MEDS: METOCLOPRAMIDE HCL INJ/PF 10 MG/2 ML SDV IV SCH ×4 (03:39→21:14)
[2019-01-02] MEDS: HYDROMORPHONE HCL INJ/PF 2 MG/ML AMPULE IV PRN ×4 (04:06→21:12)
[2019-01-02] MEDS: HEPARIN SOD (PORCINE) 5,000 UNIT/ML 1 ML VIAL SUBCUT SCH ×3 (06:26→21:16)
[2019-01-02] MEDS: NORMAL SALINE 1000 ML 1,000 ML IV PRN ×2 (06:26→17:23)
[2019-01-02] MEDS: NORMAL SALINE 10 ML SDV (AFTER EACH USE) IV PRN (07:53)
--- NOTE | 2019-01-02 07:56 | PDOC PROGRESS REPORT ---
Subjective Progress Note for:: 01/02/19 Subjective:: feels better, no nausea Reason For Visit: PANCREATIC CANCER Physical Exam Vital Signs: Temp Pulse Resp BP Pulse Ox 98.8 F 97 18 173/81 H 95 01/01/19 11:14 01/02/19 02:00 01/01/19 11:14 01/01/19 11:14 01/01/19 11:14 Intake & Output 01/01/19 01/02/19 01/03/19 06:59 06:59 06:59 Intake Total 2284 1999 Output Total 1485 422 Balance 799 1578 Weight 106.9 kg 105.8 kg General appearance: PRESENT: no acute distress Head exam: PRESENT: normocephalic Eye exam: PRESENT: EOMI Mouth exam: PRESENT: moist Neck exam: PRESENT: full ROM Respiratory exam: PRESENT: clear to auscultation roman Cardiovascular exam: PRESENT: RRR Pulses: PRESENT: normal femoral pulses, normal dorsalis pedis pul Vascular exam: PRESENT: normal capillary refill GI/Abdominal exam: PRESENT: normal bowel sounds, soft Rectal exam: PRESENT: deferred Extremities exam: PRESENT: full ROM Musculoskeletal exam: PRESENT: full ROM Neurological exam: PRESENT: alert, altered, awake, oriented to person, oriented to place, oriented to time, oriented to situation Psychiatric exam: PRESENT: appropriate affect Skin exam: PRESENT: dry Results Laboratory Results: 01/01/19 05:42 01/01/19 05:42 12/18/18 12/19/18 12/20/18 22:08 12:00 11:10 Troponin I 0.059 0.148 0.038 Impressions: KUB X-Ray 12/29/18 00:00 IMPRESSION: Nasogastric tube in the gastric body Upper GI Series 12/30/18 00:00 IMPRESSION: NARROWING AT THE GASTROJEJUNAL ANASTOMOSIS WHICH DELAYS GASTRIC EMP TYING INTO THE SMALL BOWEL. Guidance Fluoroscopy 12/31/18 00:00 IMPRESSION: SUCCESSFUL PLACEMENT OF A 5 FR DUAL LUMEN 40 CM PICC IN THE RIGHT BASILIC VEIN. Interventional Vascular Procedure 12/31/18 00:00 IMPRESSION: SUCCESSFUL PLACEMENT OF A 5 FR DUAL LUMEN 40 CM PICC IN THE RIGHT BASILIC VEIN. PICC Line Insertion 12/31/18 00:00 IMPRESSION: SUCCESSFUL PLACEMENT OF A 5 FR DUAL LUMEN 40 CM PICC IN THE RIGHT BASILIC VEIN. Assessment & Plan - Diagnosis (1) Pancreatic malignancy syndrome Is this a current diagnosis for this admission?: Yes - Time Time Spent with patient: 25-34 minutes - Plan Summary Plan Summary: ng out for more than 24hrs. no nausea or reflux passing stool abd soft with nl bs will start full liquids increase activity only eat while upright in chair. lab pending.
[2019-01-02] MEDS: INSULIN GLARGINE,HUM.REC.ANLOG 1,000 UNIT/10 ML VIAL SUBCUT SCH (09:24)
[2019-01-02] MEDS: FAT EMULSIONS 250 ML IV SCH (09:26)
[2019-01-02] MEDS: AMLODIPINE BESYLATE 10 MG TABLET PO SCH (09:27)
[2019-01-02] MEDS: ASPIRIN 81 MG TABLET, CHEWABLE PO SCH (09:27)
[2019-01-02] MEDS: METOPROLOL TARTRATE 50 MG TABLET PO SCH ×2 (09:27→21:11)
[2019-01-02] MEDS: NITROGLYCERIN 15 MG (0.6 MG/1 HR) PATCH.TD24 TD SCH (09:29)
[2019-01-02] MEDS: NORMAL SALINE 10 ML SDV (SCHEDULED) IV SCH ×2 (09:29→21:14)
[2019-01-02 10:32] LABS: ALBUMIN 2.4 g/dL (3.5-5.0); ALKALINE PHOSPHATASE 85 U/L (38-126); ANION GAP 6 (5-19); ASPARTATE AMINO TRANSFERASE 51 U/L (17-59); BILIRUBIN,DIRECT 0.8 mg/dL (0.0-0.4); BILIRUBIN,TOTAL 1.1 mg/dL (0.2-1.3); BLOOD UREA NITROGEN 22 mg/dL (7-20); CALCIUM 7.9 mg/dL (8.4-10.2); CARBON DIOXIDE 28 mmol/L (22-30); CHLORIDE 109 mmol/L (98-107); PHOSPHORUS 3.6 mg/dL (2.5-4.5); POTASSIUM 5.1 mmol/L (3.6-5.0); TOTAL PROTEIN 5.7 g/dL (6.3-8.2)
[2019-01-02 10:39] LABS: PREALBUMIN 9.5 mg/dL (17.6-36.0)
[2019-01-02 11:00] LABS: GLUCOSE 689 mg/dL (75-110)
[2019-01-02] MEDS: AMINO ACIDS 5 %/DEXTROSE 20 % 1,000 ML IV PRN (12:28)
--- NOTE | 2019-01-02 15:08 | PDOC PROGRESS REPORT ---
Subjective Progress Note for:: 01/02/19 Subjective:: No adverse events overnight. No new complaints. Vital signs been stable. No shaking chills. His diet has been advanced to full liquids. Reason For Visit: PANCREATIC CANCER Physical Exam Vital Signs: Temp Pulse Resp BP Pulse Ox 98.5 F 93 18 149/66 H 90 L 01/02/19 03:32 01/02/19 07:00 01/02/19 03:32 01/02/19 03:32 01/02/19 03:32 Intake & Output 01/01/19 01/02/19 01/03/19 06:59 06:59 06:59 Intake Total 2284 1999 Output Total 1485 422 Balance 799 1578 Weight 106.9 kg 105.8 kg 105.8 kg General appearance: PRESENT: cooperative, disheveled, mild distress, obese Respiratory exam: PRESENT: rhonchi, symmetrical, tachypnea. ABSENT: accessory muscle use, chest wall tenderness, crackles, prolonged expiratory phas, unlabored, wheezes Cardiovascular exam: PRESENT: RRR Pulses: PRESENT: normal carotid pulses Vascular exam: PRESENT: normal capillary refill GI/Abdominal exam: PRESENT: distended, hypoactive bowel sounds, soft, other - KARIN drain in place with bilious colored fluid, midline incision is unremarkable, bandages placed this morning shows shadowing of serous fluid. ABSENT: guarding, rebound, tenderness Extremities exam: PRESENT: +1 edema. ABSENT: clubbing Musculoskeletal exam: PRESENT: normal inspection. ABSENT: deformity Neurological exam: PRESENT: awake, oriented to person, oriented to place Psychiatric exam: PRESENT: flat affect Skin exam: PRESENT: dry, warm Results Laboratory Results: 01/01/19 05:42 01/02/19 09:44 01/02/19 01/02/19 07:55 09:44 Sodium Cancelled 142.9 Potassium Cancelled 5.1 H Chloride Cancelled 109 H Carbon Dioxide Cancelled 28 Anion Gap Cancelled 6 BUN Cancelled 22 H Creatinine Cancelled 1.77 H Est GFR ( Amer) Cancelled 46 L Est GFR (Non-Af Amer) Cancelled Glucose Cancelled 689 H* Calcium Cancelled 7.9 L Phosphorus Cancelled 3.6 Total Bilirubin Cancelled 1.1 AST Cancelled 51 Alkaline Phosphatase Cancelled 85 Total Protein Cancelled 5.7 L Albumin Cancelled 2.4 L Prealbumin Cancelled 9.5 L 12/28/18 08:34 Blood Blood Culture - Final NO GROWTH IN 5 DAYS 12/18/18 12/19/18 12/20/18 22:08 12:00 11:10 Troponin I 0.059 0.148 0.038 Impressions: KUB X-Ray 12/29/18 00:00 IMPRESSION: Nasogastric tube in the gastric body Upper GI Series 12/30/18 00:00 IMPRESSION: NARROWING AT THE GASTROJEJUNAL ANASTOMOSIS WHICH DELAYS GASTRIC EMPTYING INTO THE SMALL BOWEL. Guidance Fluoroscopy 12/31/18 00:00 IMPRESSION: SUCCESSFUL PLACEMENT OF A 5 FR DUAL LUMEN 40 CM PICC IN THE RIGHT BASILIC VEIN. Interventional Vascular Procedure 12/31/18 00:00 IMPRESSION: SUCCESSFUL PLACEMENT OF A 5 FR DUAL LUMEN 40 CM PICC IN THE RIGHT BASILIC VEIN. PICC Line Insertion 12/31/18 00:00 IMPRESSION: SUCCESSFUL PLACEMENT OF A 5 FR DUAL LUMEN 40 CM PICC IN THE RIGHT BASILIC VEIN. Assessment and Plan - Diagnosis (1) Acute blood loss as cause of postoperative anemia Is this a current diagnosis for this admission?: Yes Plan: Status post red cell infusion, hemoglobin stable (2) Acute kidney injury superimposed on CKD Is this a current diagnosis for this admission?: Yes Plan: Creatinine stabilized in the other end of his typical range (3) Acute respiratory failure with hypoxia Is this a current diagnosis for this admission?: Yes Plan: Continue supplemental O2 to maintain SPO2 greater than 90% (4) Cirrhosis of liver Qualifiers: Hepatic cirrhosis type: unspecified hepatic cirrhosis Ascites presence: without ascites Qualified Code(s): K74.60 - Unspecified cirrhosis of liver Is this a current diagnosis for this admission?: Yes Plan: Monitoring volume status closely (5) MRSA pneumonia Qualifiers: Lung location: unspecified part of lung Is this a current diagnosis for this admission?: Yes Plan: He has had 10 days of broad-spectrum antibiotics at this point, will continue antibiotics for now (6) Pancreatic cancer Qualifiers: Pancreatic malignancy location: head of pancreas Qualified Code(s): C25.0 - Malignant neoplasm of head of pancreas Is this a current diagnosis for this admission?: Yes Plan: Status post distal pancreatectomy and splenectomy on 12/18/2018. Outpatient oncology and PCP follow-up. Defer management to surgical team. - Time Time Spent with patient: 15-24 minutes
[2019-01-02] MEDS: ATORVASTATIN CALCIUM 20 MG TABLET PO SCH (21:11)
--- NOTE | 2019-01-02 21:50 | Progress Note ---
Provider Note Provider Note: CARDIOLOGY PROGRESS NOTE by Dr. Yulia Ramos on 01/02/2019. SUBJECTIVE: The patient is tolerating diet and has been advanced to full liquid diet. He is passing flatus. He has no nausea vomiting. There is no chest pain or discomfort. His blood pressure still little elevated. But will give clonidine patch to start his affect. The patient has no anginal symptoms. There is no atrial or ventricular arrhythmia seen on the monitor. PHYSICAL EXAMINATION: The patient is mildly obese. In no acute distress. Selected Entries 01/02/19 20:00 Temperature 98 F Temperature Oral Source Pulse Rate 97 Respiratory 18 Rate Blood Pressure 165/79 H [Left] Blood Pressure 107 Mean [Left] O2 Sat by Pulse 99 Oximetry Oxygen Delivery Nasal Cannula Method ( includes room air) Oxygen Flow 2.50 Rate HEAD: Is atraumatic. Normocephalic. EYES: Pupils are equal round reactive to light. ENT is negative. NECK: Supple. There is no JVD. There is no accessory muscle respiration use. Trachea central. LUNGS: There is diminished air entry and prolonged expiration. On percussion there is hyperresonance. There there are no rhonchi rales or wheezing.. HEART: S1-S2 is heard. S1 is of normal intensity. There is no S3 gallop. There is no S4 gallop there is systolic murmur in the left sternal border and the apex there is no rub. ABDOMEN: Is obese. There is mild abdominal distention. There is no hepatospleno megaly. Bowel sounds heard. EXTREMITIES: Femorals are diminished there is no femoral bruits. Leg pulses are diminished. There is trace pedal edema in the right lower extremity. There is no DVT or cellulitis. There is no calf tenderness. There is no cyanosis or clubbing.SALES ENABLEMENT SPECIALIST: The patient is conscious awake alert oriented x3 with no focal deficit. PSYCHIATRIC: Patient judgment insight are intact his affect is normal. Labs- All tests 24 hr 01/02/19 01/02/19 01/02/19 00:04 05:54 07:55 Sodium Cancelled Potassium Cancelled Chloride Cancelled Carbon Dioxide Cancelled Anion Gap Cancelled BUN Cancelled Creatinine Cancelled Est GFR ( Amer) Cancelled Est GFR (Non-Af Amer) Cancelled Est GFR (MDRD) Non-Af Cancelled Glucose Cancelled POC Glucose 277 H 241 H Calcium Cancelled Phosphorus Cancelled Total Bilirubin Cancelled Direct Bilirubin Cancelled Neonat Total Bilirubin Cancelled Neonat Direct Bilirubin Cancelled Neonat Indirect Bili Cancelled AST Cancelled ALT Cancelled Alkaline Phosphatase Cancelled Total Protein Cancelled Albumin Cancelled Prealbumin Cancelled EGFR Cancelled 01/02/19 01/02/19 01/02/19 09:26 09:44 12:27 Sodium 142.9 Potassium 5.1 H Chloride 109 H Carbon Dioxide 28 Anion Gap 6 BUN 22 H Creatinine 1.77 H Est GFR ( Amer) 46 L Est GFR (Non-Af Amer) Est GFR (MDRD) Non-Af 38 L Glucose 689 H* POC Glucose 257 H 319 H Calcium 7.9 L Phosphorus 3.6 Total Bilirubin 1.1 Direct Bilirubin 0.8 H Neonat Total Bilirubin Not Reportable Neonat Direct Bilirubin Not Reportable Neonat Indirect Bili Not Reportable AST 51 ALT 15 Alkaline Phosphatase 85 Total Protein 5.7 L Albumin 2.4 L Prealbumin 9.5 L EGFR 01/02/19 17:10 Sodium Potassium Chloride Carbon Dioxide Anion Gap BUN Creatinine Est GFR ( Amer) Est GFR (Non-Af Amer) Est GFR (MDRD) Non-Af Glucose POC Glucose 238 H Calcium Phosphorus Total Bilirubin Direct Bilirubin Neonat Total Bilirubin Neonat Direct Bilirubin Neonat Indirect Bili AST ALT Alkaline Phosphatase Total Protein Albumin Prealbumin EGFR Chest X-Ray 12/18/18 00:00 IMPRESSION: Support lines and tubes have been placed as described. Chest X-Ray 12/18/18 00:00 IMPRESSION: Lines and catheters in place, as above.. Probable tiny bibasilar effusions copyright 2010 [id number]- All Rights Reserved Chest X-Ray 12/19/18 00:00 IMPRESSION: 1. No significant interval changes since examination performed earlier on the same date, 12/19/2018. No evidence of pneumothorax. 2. Support tubes and line are unchanged. Chest X-Ray 12/19/18 06:00 IMPRESSION: STABLE APPEARANCE OF THE CHEST. SUPPORT DEVICES UNCHANGED. Chest X-Ray 12/20/18 06:00 IMPRESSION: 1. Tubes and lines as above. 2. Unchanged radiographic appearance of the chest with low inspiratory lung volumes, a probable left retrocardiac opacity, and mild cardiomegaly. Chest X-Ray 12/21/18 06:00 IMPRESSION: Stable appearance of the lungs. Chest X-Ray 12/23/18 00:00 IMPRESSION: Unchanged radiographic appearance of the chest. KUB X-Ray 12/29/18: IMPRESSION: Nasogastric tube in the gastric body Upper GI Series 12/30/18 IMPRESSION: NARROWING AT THE GASTROJEJUNAL ANASTOMOSIS WHICH DELAYS GASTRIC EMPTYING INTO THE SMALL BOWEL. Guidance Fluoroscopy 12/31/18 IMPRESSION: SUCCESSFUL PLACEMENT OF A 5 FR DUAL LUMEN 40 CM PICC IN THE RIGHT BASILIC VEIN. Interventional Vascular Procedure 12/31/18 IMPRESSION: SUCCESSFUL PLACEMENT OF A 5 FR DUAL LUMEN 40 CM PICC IN THE RIGHT BASILIC VEIN. PICC Line Insertion 12/31/18 IMPRESSION: SUCCESSFUL PLACEMENT OF A 5 FR DUAL LUMEN 40 CM PICC IN THE RIGHT BASILIC VEIN. IMPRESSION/RECOMMENDATION: 1. A small non-ST elevation [place] cannot be entirely excluded. Patient without anginal symptoms. In the troponins trended down. The patient has been started on tube feedings. But this had to be stopped, due to clogging of the jejunostomy feeding tube. Hence the patient is getting TPN intravenously.. Will increase Nitropatch to 15 mg per 24-hour daily 2. Status post Whipple procedure complicated by postoperative bleeding, redo surgery, and cardiac arrest, and massive blood transfusions. At present patient stable. 3. Pancreatic cancer. 4.Coronary artery disease. History of LAD stent in 2012: No anginal symptoms. 5. Hypertension: Blood pressure not well controlled since the patient is not taking orally we will start the patient on a clonidine patch. 6. Diabetes mellitus: Continue Accu-Cheks and sliding insulin scale coverage. 7. Chronic kidney disease: Appears to be stable avoid nephrotoxic drugs 8. History of depression: At present clinically the patient does not appear to be depressed. 9. Posttraumatic stress disorder: Stable. 10. MRSA pneumonia: Patient on antibiotics. Clinically appears to be stable. Shortness of breath transiently with decreased oxygen saturation. Medications reviewed. Medical management and management plan discussed with attending physician and with the hospitalist. Medical decision making is of moderate complexity. 40 minutes spent on this patient more than 50% time spent in direct patient care. Will follow.
[2019-01-03] MEDS: INSULIN REG, HUMAN 100 UNIT/ML 3 ML VIAL (PYX) SUBCUT SCH ×4 (00:21→17:09)
[2019-01-03] MEDS: HYDROMORPHONE HCL INJ/PF 2 MG/ML AMPULE IV PRN ×4 (01:19→22:49)
[2019-01-03] MEDS: METOCLOPRAMIDE HCL INJ/PF 10 MG/2 ML SDV IV SCH ×4 (02:25→22:48)
[2019-01-03] MEDS: ERYTHROMYCIN LACTOBIONATE 250 MG in NORMAL SALINE 100 ML IV SCH ×3 (02:28→17:09)
[2019-01-03] MEDS: HEPARIN SOD (PORCINE) 5,000 UNIT/ML 1 ML VIAL SUBCUT SCH ×3 (05:38→22:51)
[2019-01-03] MEDS: NORMAL SALINE 1000 ML 1,000 ML IV PRN ×2 (05:38→15:13)
[2019-01-03] MEDS: NORMAL SALINE 10 ML SDV (AFTER EACH USE) IV PRN (05:39)
[2019-01-03] MEDS: AMINO ACIDS 5 %/DEXTROSE 20 % 1,000 ML IV PRN (06:15)
[2019-01-03] MEDS: LABETALOL HCL INJ 20 MG/4 ML DISP.SYRIN IV PRN (06:42)
[2019-01-03 07:22] LABS: ALBUMIN 2.5 g/dL (3.5-5.0); ALKALINE PHOSPHATASE 144 U/L (38-126); ASPARTATE AMINO TRANSFERASE 87 U/L (17-59); BILIRUBIN,DIRECT 0.6 mg/dL (0.0-0.4); BILIRUBIN,TOTAL 0.9 mg/dL (0.2-1.3); BLOOD UREA NITROGEN 21 mg/dL (7-20); CALCIUM 8.2 mg/dL (8.4-10.2); CARBON DIOXIDE 30 mmol/L (22-30); CHLORIDE 113 mmol/L (98-107); GLUCOSE 123 mg/dL (75-110); PHOSPHORUS 3.4 mg/dL (2.5-4.5); POTASSIUM 4.4 mmol/L (3.6-5.0); TOTAL PROTEIN 6.2 g/dL (6.3-8.2)
[2019-01-03 07:45] LABS: ANION GAP 5 (5-19)
--- NOTE | 2019-01-03 08:42 | PDOC PROGRESS REPORT ---
Subjective Progress Note for:: 01/03/19 Subjective:: feels ok, no nausea on full liquids no gerd or vomiting passing flatus Reason For Visit: PANCREATIC CANCER Physical Exam Vital Signs: Temp Pulse Resp BP Pulse Ox 98.6 F 84 16 144/63 H 92 01/03/19 07:56 01/03/19 07:56 01/03/19 07:56 01/03/19 07:56 01/03/19 07:56 Intake & Output 01/02/19 01/03/19 01/04/19 06:59 06:59 06:59 Intake Total 1999 3232 Output Total 422 1622 Balance 1578 1611 Weight 105.8 kg 105 kg General appearance: PRESENT: no acute distress Eye exam: PRESENT: EOMI Mouth exam: PRESENT: moist Neck exam: PRESENT: full ROM Respiratory exam: PRESENT: clear to auscultation roman, unlabored Cardiovascular exam: PRESENT: RRR Pulses: PRESENT: normal radial pulses, normal femoral pulses GI/Abdominal exam: PRESENT: distended, normal bowel sounds Rectal exam: PRESENT: deferred Extremities exam: PRESENT: full ROM Musculoskeletal exam: PRESENT: full ROM Neurological exam: PRESENT: alert, altered, awake, oriented to person, oriented to place Psychiatric exam: PRESENT: appropriate affect Skin exam: PRESENT: dry Results Laboratory Results: 01/01/19 05:42 01/03/19 05:45 01/02/19 01/02/19 01/03/19 07:55 09:44 05:45 Sodium Cancelled 142.9 148.2 H Potassium Cancelled 5.1 H 4.4 Chloride Cancelled 109 H 113 H Carbon Dioxide Cancelled 28 30 Anion Gap Cancelled 6 5 BUN Cancelled 22 H 21 H Creatinine Cancelled 1.77 H 1.89 H Est GFR ( Amer) Cancelled 46 L 43 L Est GFR (Non-Af Amer) Cancelled Glucose Cancelled 689 H* 123 H Calcium Cancelled 7.9 L 8.2 L Phosphorus Cancelled 3.6 3.4 Total Bilirubin Cancelled 1.1 0.9 AST Cancelled 51 87 H Alkaline Phosphatase Cancelled 85 144 H Total Protein Cancelled 5.7 L 6.2 L Albumin Cancelled 2.4 L 2.5 L Prealbumin Cancelled 9.5 L 7.0 L 12/28/18 08:34 Blood Blood Culture - Final NO GROWTH IN 5 DAYS 12/18/18 12/19/18 12/20/18 22:08 12:00 11:10 Troponin I 0.059 0.148 0.038 Impressions: KUB X-Ray 12/29/18 00:00 IMPRESSION: Nasogastric tube in the gastric body Upper GI Series 12/30/18 00:00 IMPRESSION: NARROWING AT THE GASTROJEJUNAL ANASTOMOSIS WHICH DELAYS GASTRIC EMPTYING INTO THE SMALL BOWEL. Guidance Fluoroscopy 12/31/18 00:00 IMPRESSION: SUCCESSFUL PLACEMENT OF A 5 FR DUAL LUMEN 40 CM PICC IN THE RIGHT BASILIC VEIN. Interventional Vascular Procedure 12/31/18 00:00 IMPRESSION: SUCCESSFUL PLACEMENT OF A 5 FR DUAL LUMEN 40 CM PICC IN THE RIGHT BASILIC VEIN. PICC Line Insertion 12/31/18 00:00 IMPRESSION: SUCCESSFUL PLACEMENT OF A 5 FR DUAL LUMEN 40 CM PICC IN THE RIGHT BASILIC VEIN. Assessment & Plan - Diagnosis (1) Pancreatic malignancy syndrome Is this a current diagnosis for this admission?: Yes - Time Time Spent with patient: 25-34 minutes - Plan Summary Plan Summary: s/p suibtaotal pancreatectomy for pancreatic cancer doing ok tolerated full liqluids yesterday passing flatus, still some abd distension jessy's serous, prob some ascites plan cont pt discharge planning, home vs snf.
--- NOTE | 2019-01-03 10:49 | PDOC PROGRESS REPORT ---
Subjective Progress Note for:: 01/03/19 Subjective:: RAJAT DANIEL is a 68 year old male past medical history of TIM, diabetes, PTSD, cirrhosis due to hepatitis C, dyslipidemia, CKD, admitted on 12/18/2018 for distal pancreatectomy/splenectomy for underlying tumor of the pancreatic head unfortunately patient went into hemorrhagic shock intraoperatively and was transferred to ICU. Patient transferred back to floor on 12/27/2018 and hospitalist was consulted for medical management. 12/28/2018. No acute events overnight. Patient had one large bowel movement today. Passing flatus. Denies any fever, chills, nausea, vomiting, diarrhea or any urinary symptoms. 12/29/2018. Patient upgraded to IMCU last night due to worsening respiratory symptoms. On my encounter this morning patient is currently resting in bed, on supplemental oxygen, curious about when he can eat, passing flatus, has not had a bowel movement, complaining of diffuse abdominal pain 1/5 on intensity scale, denies any fever, chills, nausea, vomiting, diarrhea, constipation or any urinary symptoms. Feeds are on hold due to high residuals. 12/30/2018. No acute events overnight. Patient feeling better, having normal bowel movements, denies any fever, chills, nausea, vomiting, diarrhea, constipation or urinary symptoms. 12/31/2018. No acute events overnight. Patient stating that he is feeling better. Having normal bowel movements. 01/03/2019. Assumed care today. No acute events overnight. Patient is ambulatory, having normal bowel movements, on full liquid diet, denies any abdominal pain, nausea, vomiting, diarrhea, constipation or any urinary symptoms. NG tube has been removed. Patient still have bilateral drains. Reason For Visit: PANCREATIC CANCER Physical Exam Vital Signs: Temp Pulse Resp BP Pulse Ox 98.6 F 84 16 144/63 H 92 01/03/19 07:56 01/03/19 07:56 01/03/19 07:56 01/03/19 07:56 01/03/19 07:56 Intake & Output 01/02/19 01/03/19 01/04/19 06:59 06:59 06:59 Intake Total 1999 3232 Output Total 422 1622 Balance 1578 1611 Weight 105.8 kg 105 kg General appearance: PRESENT: obese Head exam: PRESENT: atraumatic, normocephalic Respiratory exam: PRESENT: clear to auscultation roman. ABSENT: rales, rhonchi, wheezes Cardiovascular exam: PRESENT: RRR. ABSENT: diastolic murmur, rubs, systolic murmur GI/Abdominal exam: PRESENT: normal bowel sounds, soft, other - Bilateral drains in place.. ABSENT: distended, guarding, mass, organolmegaly, rebound, tenderness Extremities exam: PRESENT: +1 edema Neurological exam: PRESENT: alert, awake, oriented to person, oriented to place, oriented to time, oriented to situation, CN II-XII grossly intact. ABSENT: motor sensory deficit Results Laboratory Results: 01/01/19 05:42 01/03/19 05:45 01/02/19 01/03/19 09:44 05:45 Sodium 142.9 148.2 H Potassium 5.1 H 4.4 Chloride 109 H 113 H Carbon Dioxide 28 30 Anion Gap 6 5 BUN 22 H 21 H Creatinine 1.77 H 1.89 H Est GFR ( Amer) 46 L 43 L Glucose 689 H* 123 H Calcium 7.9 L 8.2 L Phosphorus 3.6 3.4 Total Bilirubin 1.1 0.9 AST 51 87 H Alkaline Phosphatase 85 144 H Total Protein 5.7 L 6.2 L Albumin 2.4 L 2.5 L Prealbumin 9.5 L 7.0 L 12/28/18 08:34 Blood Blood Culture - Final NO GROWTH IN 5 DAYS 12/18/18 12/19/18 12/20/18 22:08 12:00 11:10 Troponin I 0.059 0.148 0.038 Impressions: KUB X-Ray 12/29/18 00:00 IMPRESSION: Nasogastric tube in the gastric body Upper GI Series 12/30/18 00:00 IMPRESSION: NARROWING AT THE GASTROJEJUNAL ANASTOMOSIS WHICH DELAYS GASTRIC EMPTYING INTO THE SMALL BOWEL. Guidance Fluoroscopy 12/31/18 00:00 IMPRESSION: SUCCESSFUL PLACEMENT OF A 5 FR DUAL LUMEN 40 CM PICC IN THE RIGHT BASILIC VEIN. Interventional Vascular Procedure 12/31/18 00:00 IMPRESSION: SUCCESSFUL PLACEMENT OF A 5 FR DUAL LUMEN 40 CM PICC IN THE RIGHT BASILIC VEIN. PICC Line Insertion 12/31/18 00:00 IMPRESSION: SUCCESSFUL PLACEMENT OF A 5 FR DUAL LUMEN 40 CM PICC IN THE RIGHT BASILIC VEIN. Assessment and Plan - Diagnosis (1) Acute kidney injury superimposed on CKD Is this a current diagnosis for this admission?: Yes Plan: Improving. Creatinine back to baseline. Electrolytes WNL. Prerenal. Likely due to hemorrhagic shock, dehydration and vancomycin. Making adequate urine output. Monitor volume status, electrolytes and replace as needed. Avoid nephrotoxic meds. BMP tomorrow. Note: Vancomycin trough 38.4. I have discussed this with the pharmacist who told me trough is not accurate as it was drawn right after vancomycin initia tion. I have changed vancomycin dosage to be dosed and managed by pharmacy (2) Hypertension Is this a current diagnosis for this admission?: Yes Plan: Not optimized. Home meds are: Losartan 100 mg p.o. daily Lasix 20 mg p.o. daily Carvedilol 25 mg p.o. daily. Amlodipine 10 mg p.o. daily. Currently on metoprolol tartrate 25 mg p.o. twice daily, amlodipine 10 mg p.o. daily but cannot take your meds. Restart losartan. Continue IV hydralazine and labetalol as needed. Monitor vital status, adjust meds as needed. (3) Acute respiratory failure with hypoxia Is this a current diagnosis for this admission?: Yes Plan: Resolved. Extubated on 1027. SPO2 WNL on 2 L NC (4) Pancreatic cancer Qualifiers: Pancreatic malignancy location: head of pancreas Qualified Code(s): C25.0 - Malignant neoplasm of head of pancreas Is this a current diagnosis for this admission?: Yes Plan: Status post distal pancreatectomy and splenectomy on 12/18/2018. Outpatient oncology and PCP follow-up. Defer management to surgical team. (5) Coronary artery disease Qualifiers: Coronary Disease-Associated Artery/Lesion type: [place] artery [place] vs. transplanted heart: [place] heart Associated angina: angina presence unspecified Qualified Code(s): I25.10 - Atherosclerotic heart disease of [place] coronary artery without angina pectoris Is this a current diagnosis for this admission?: Yes Plan: Denies any anginal pain. Continue antiplatelets, statins, beta-blockers, ARB Outpatient PCP and cardiology follow-up. Cardiology on board. (6) Diabetes mellitus type 2 in obese Is this a current diagnosis for this admission?: Yes Plan: Follow-up as outpatient. Hemoglobin A1c 6.7%. Improving. Continue diabetic diet, prandial, basal and sliding scale insulin. Continue Accu-Chek, hypoglycemic protocol. Outpatient PCP follow-up. (7) MRSA pneumonia Qualifiers: Lung location: unspecified part of lung Is this a current diagnosis for this admission?: Yes Plan: Afebrile. Still significant leukocytosis. No bandemia. SPO2 WNL on 2 L NC. 12/21/2017 sputum culture positive for MRSA. Cultures negative so far. Day 11 IV antibiotics. Day 11 IV vancomycin. Received 9 days of IV meropenem. Continue empiric IV antibiotic 1 more day. DC antibiotics tomorrow. Repeat blood and sputum cultures. Follow-up cultures. (8) Sepsis Qualifiers: Sepsis type: sepsis due to unspecified organism Qualified Code(s): A41.9 - Sepsis, unspecified organism Is this a current diagnosis for this admission?: Yes Plan: Resolved. Vitals WNL. Likely due to underlying infectious process. Continue empiric IV antibiotics. Monitor vitals. (9) Gram-positive bacteremia Is this a current diagnosis for this admission?: Yes Plan: Due to staph epidermidis 1 out of 4 bottles. Sample taken from central line unsure of the recalled contamination. Central line has been removed and tip cultured. Repeat blood cultures have been negative. Already receiving empiric IV antibiotics for H CAP. Continue current IV antibiotics. Follow blood cultures.
[2019-01-03] MEDS: IPRATROPIUM/ALBUTEROL 0.5-2.5 MG/3 ML AMPUL NEB PRN (11:09)
[2019-01-03] MEDS: LOSARTAN POTASSIUM 50 MG TABLET PO SCH (11:44)
[2019-01-03] MEDS: AMLODIPINE BESYLATE 10 MG TABLET PO SCH (11:49)
[2019-01-03] MEDS: ASPIRIN 81 MG TABLET, CHEWABLE PO SCH (11:51)
[2019-01-03] MEDS: METOPROLOL TARTRATE 50 MG TABLET PO SCH ×2 (11:51→22:50)
[2019-01-03] MEDS: NITROGLYCERIN 15 MG (0.6 MG/1 HR) PATCH.TD24 TD SCH (11:55)
[2019-01-03] MEDS: INSULIN GLARGINE,HUM.REC.ANLOG 1,000 UNIT/10 ML VIAL SUBCUT SCH ×2 (11:58→12:31)
[2019-01-03] MEDS: NORMAL SALINE 10 ML SDV (SCHEDULED) IV SCH ×2 (12:18→22:49)
[2019-01-03] MEDS ORDERED: INSULIN GLARGINE,HUM.REC.ANLOG 1,000 UNIT/10 ML VIAL (PYX) SUBCUT ONE (12:30)
--- NOTE | 2019-01-03 19:26 | Progress Note ---
Provider Note Provider Note: CARDIOLOGY PROGRESS NOTE by Dr. Yulia Ramos on 01/03/2019. SUBJECTIVE: The patient has no chest pain or discomfort. There is no shortness of breath. There is no PND orthopnea. There is no arrhythmia seen on the monitor. The patient is able to tolerate a full liquid diet without any nausea vomiting. The patient did have a bowel movement and is passing flatus. PHYSICAL EXAMINATION: The patient mildly obese. In no acute distress. Selected Entries 01/03/19 16:21 Temperature 99.0 F Temperature Oral Source Pulse Rate 70 Respiratory 18 Rate Blood Pressure 123/71 Blood Pressure 88 Mean BP Location Left Arm BP Position Supine O2 Sat by Pulse 93 Oximetry Oxygen Flow 2.50 Rate Oxygen Delivery Nasal Cannula Method HEAD: Is atraumatic. Normocephalic. EYES: Pupils are equal round reactive to light. ENT is negative. NECK: Supple. There is no JVD. There is no accessory muscle respiration use. Trachea central. LUNGS: There is diminished air entry and prolonged expiration. On percussion there is hyperresonance. There there are no rhonchi rales or wheezing.. HEART: S1-S2 is heard. S1 is of normal intensity. There is no S3 gallop. There is no S4 gallop there is systolic murmur in the left sternal border and the apex there is no rub. ABDOMEN: Is obese. There is mild abdominal distention. There is no hepatospleno megaly. Bowel sounds heard. EXTREMITIES: Femorals are diminished there is no femoral bruits. Leg pulses are diminished. There is trace pedal edema in the right lower extremity. There is no DVT or cellulitis. There is no calf tenderness. There is no cyanosis or clubbing.STEREOTYPER HELPER: The patient is conscious awake alert oriented x3 with no focal deficit. PSYCHIATRIC: Patient judgment insight are intact his affect is normal. Labs- All tests 24 hr 01/03/19 01/03/19 01/03/19 00:01 05:42 05:45 Sodium 148.2 H Potassium 4.4 Chloride 113 H Carbon Dioxide 30 Anion Gap 5 BUN 21 H Creatinine 1.89 H Est GFR ( Amer) 43 L Est GFR (MDRD) Non-Af 36 L Glucose 123 H POC Glucose 131 H 127 H Calcium 8.2 L Phosphorus 3.4 Total Bilirubin 0.9 Direct Bilirubin 0.6 H Neonat Total Bilirubin Not Reportable Neonat Direct Bilirubin Not Reportable Neonat Indirect Bili Not Reportable AST 87 H ALT 32 Alkaline Phosphatase 144 H Total Protein 6.2 L Albumin 2.5 L Prealbumin 7.0 L 01/03/19 01/03/19 12:02 16:19 Sodium Potassium Chloride Carbon Dioxide Anion Gap BUN Creatinine Est GFR ( Amer) Est GFR (MDRD) Non-Af Glucose POC Glucose 190 H 229 H Calcium Phosphorus Total Bilirubin Direct Bilirubin Neonat Total Bilirubin Neonat Direct Bilirubin Neonat Indirect Bili AST ALT Alkaline Phosphatase Total Protein Albumin Prealbumin Chest X-Ray 12/18/18 00:00 IMPRESSION: Support lines and tubes have been placed as described. Chest X-Ray 12/18/18 00:00 IMPRESSION: Lines and catheters in place, as above.. Probable tiny bibasilar effusions copyright 2010 [employer]- All Rights Reserved Chest X-Ray 12/19/18 00:00 IMPRESSION: 1. No significant interval changes since examination performed earlier on the same date, 12/19/2018. No evidence of pneumothorax. 2. Support tubes and line are unchanged. Chest X-Ray 12/19/18 06:00 IMPRESSION: STABLE APPEARANCE OF THE CHEST. SUPPORT DEVICES UNCHANGED. Chest X-Ray 12/20/18 06:00 IMPRESSION: 1. Tubes and lines as above. 2. Unchanged radiographic appearance of the chest with low inspiratory lung volumes, a probable left retrocardiac opacity, and mild cardiomegaly. Chest X-Ray 12/21/18 06:00 IMPRESSION: Stable appearance of the lungs. Chest X-Ray 12/23/18 00:00 IMPRESSION: Unchanged radiographic appearance of the chest. KUB X-Ray 12/29/18 00:00 IMPRESSION: Nasogastric tube in the gastric body Upper GI Series 12/30/18 00:00 IMPRESSION: NARROWING AT THE GASTROJEJUNAL ANASTOMOSIS WHICH DELAYS GASTRIC EMPTYING INTO THE SMALL BOWEL. Guidance Fluoroscopy 12/31/18 00:00 IMPRESSION: SUCCESSFUL PLACEMENT OF A 5 FR DUAL LUMEN 40 CM PICC IN THE RIGHT BASILIC VEIN. Interventional Vascular Procedure 12/31/18 00:00 IMPRESSION: SUCCESSFUL PLACEMENT OF A 5 FR DUAL LUMEN 40 CM PICC IN THE RIGHT BASILIC VEIN. PICC Line Insertion 12/31/18 00:00 IMPRESSION: SUCCESSFUL PLACEMENT OF A 5 FR DUAL LUMEN 40 CM PICC IN THE RIGHT BASILIC VEIN. IMPRESSION/RECOMMENDATION: 1. A small non-ST elevation IL cannot be entirely excluded. Patient without anginal symptoms. In the troponins trended down. The patient has been started on tube feedings. But this had to be stopped, due to clogging of the jejunostomy feeding tube. Hence the patient is getting TPN intravenously.. Will increase Nitropatch to 15 mg per 24-hour daily 2. Status post Whipple procedure complicated by postoperative bleeding, redo surgery, and cardiac arrest, and massive blood transfusions. At present patient stable. 3. Pancreatic cancer. 4.Coronary artery disease. History of LAD stent in 2012: No anginal symptoms. 5. Hypertension: Blood pressure not well controlled since the patient is not taking orally we will start the patient on a clonidine patch. 6. Diabetes mellitus: Continue Accu-Cheks and sliding insulin scale coverage. 7. Chronic kidney disease: Appears to be stable avoid nephrotoxic drugs 8. History of depression: At present clinically the patient does not appear to be depressed. 9. Posttraumatic stress disorder: Stable. 10. MRSA pneumonia: Patient on antibiotics. Clinically appears to be stable. Shortness of breath transiently with decreased oxygen saturation. This is resolved. Pneumonia is improving. Medications reviewed. Medical management and management plan discussed with attending physician and with the hospitalist. Medical decision making is of moderate complexity. 40 minutes spent on this patient more than 50% time spent in direct patient care. Cardiac status is stable. Hence will sign off and follow the patient in the office. Discussed with the caregiving providers on the case..
[2019-01-03 22:33] LABS: VANCOMYCIN,TROUGH 11.3 ug/mL (5.0-20.0)
[2019-01-03 22:42] LABS: CREATINE KINASE MB 0.22 ng/mL (<4.55)
[2019-01-03 22:43] LABS: TROPONIN I < 0.012 ng/mL
[2019-01-03] MEDS: VANCOMYCIN HCL 750 MG in DEXTROSE 5%-WATER 250 ML IV SCH (22:49)
[2019-01-03] MEDS: ATORVASTATIN CALCIUM 20 MG TABLET PO SCH (22:49)
[2019-01-04] MEDS: INSULIN REG, HUMAN 100 UNIT/ML 3 ML VIAL (PYX) SUBCUT SCH ×5 (00:16→21:56)
[2019-01-04] MEDS: AMINO ACIDS 5 %/DEXTROSE 20 % 1,000 ML IV PRN (00:23)
[2019-01-04] MEDS: ERYTHROMYCIN LACTOBIONATE 250 MG in NORMAL SALINE 100 ML IV SCH ×3 (01:44→17:14)
[2019-01-04] MEDS: HYDROMORPHONE HCL INJ/PF 2 MG/ML AMPULE IV PRN ×7 (01:49→23:13)
[2019-01-04] MEDS: IPRATROPIUM/ALBUTEROL 0.5-2.5 MG/3 ML AMPUL NEB PRN (03:56)
[2019-01-04] MEDS: METOCLOPRAMIDE HCL INJ/PF 10 MG/2 ML SDV IV SCH ×4 (05:12→21:55)
[2019-01-04] MEDS: HEPARIN SOD (PORCINE) 5,000 UNIT/ML 1 ML VIAL SUBCUT SCH ×3 (05:14→21:55)
[2019-01-04] MEDS: NORMAL SALINE 1000 ML 1,000 ML IV PRN (05:24)
[2019-01-04 08:43] LABS: ABSOLUTE BASOPHILS # (AUTO) 0.1 10^3/uL (0.0-0.2); ABSOLUTE EOSINOPHILS # (AUTO) 0.6 10^3/uL (0.0-0.6); ABSOLUTE LYMPHOCYTES (AUTO) 1.9 10^3/uL (0.5-4.7); ABSOLUTE MONOCYTES (AUTO) 2.1 10^3/uL (0.1-1.4); ABSOLUTE NEUT (AUTO) 8.3 10^3/uL (1.7-8.2); BASOPHILS % (AUTO) 0.4 % (0-2); EOSINOPHILS % (AUTO) 4.3 % (0-6); HEMATOCRIT 26.3 % (37.9-51.0); HEMOGLOBIN 8.3 g/dL (13.5-17.0); LYMPHOCYTES % (AUTO) 14.8 % (13-45); MEAN CORPUSCULAR HEMOGLOBIN 27.9 pg (27.0-33.4); MEAN CORPUSCULAR HGB CONC 31.5 g/dL (32.0-36.0); MEAN CORPUSCULAR VOLUME 89 fl (80-97); MONOCYTES % (AUTO) 16.2 % (3-13); PLATELET COUNT 305 10^3/uL (150-450); RED BLOOD COUNT 2.97 10^6/uL (4.35-5.55); RED CELL DISTRIBUTION WIDTH 14.5 % (11.5-14.0); SEGMENTED NEUTROPHILS % (AUTO) 64.3 % (42-78); TOTAL CELLS COUNTED % (AUTO) 100 %; WHITE BLOOD COUNT 12.9 10^3/uL (4.0-10.5)
[2019-01-04 09:05] LABS: ALBUMIN 2.4 g/dL (3.5-5.0); ALKALINE PHOSPHATASE 188 U/L (38-126); ANION GAP 6 (5-19); ASPARTATE AMINO TRANSFERASE 52 U/L (17-59); BILIRUBIN,DIRECT 0.6 mg/dL (0.0-0.4); BILIRUBIN,TOTAL 0.9 mg/dL (0.2-1.3); BLOOD UREA NITROGEN 20 mg/dL (7-20); CALCIUM 8.1 mg/dL (8.4-10.2); CARBON DIOXIDE 27 mmol/L (22-30); CHLORIDE 109 mmol/L (98-107); GLUCOSE 360 mg/dL (75-110); POTASSIUM 4.7 mmol/L (3.6-5.0); TOTAL PROTEIN 6.1 g/dL (6.3-8.2)
[2019-01-04] MEDS: NITROGLYCERIN 15 MG (0.6 MG/1 HR) PATCH.TD24 TD SCH (09:27)
[2019-01-04] MEDS: INSULIN GLARGINE,HUM.REC.ANLOG 1,000 UNIT/10 ML VIAL SUBCUT SCH (09:28)
[2019-01-04] MEDS: METOPROLOL TARTRATE 50 MG TABLET PO SCH ×2 (09:29→21:54)
[2019-01-04] MEDS: AMLODIPINE BESYLATE 10 MG TABLET PO SCH (09:29)
[2019-01-04] MEDS: LOSARTAN POTASSIUM 50 MG TABLET PO SCH (09:29)
[2019-01-04] MEDS: ASPIRIN 81 MG TABLET, CHEWABLE PO SCH (09:29)
[2019-01-04] MEDS: NORMAL SALINE 10 ML SDV (SCHEDULED) IV SCH ×2 (09:30→21:55)
--- NOTE | 2019-01-04 09:35 | PDOC PROGRESS REPORT ---
Subjective Progress Note for:: 01/04/19 Subjective:: feels better passing stool curtis full liquids Reason For Visit: PANCREATIC CANCER Physical Exam Vital Signs: Temp Pulse Resp BP Pulse Ox 98.7 F 83 20 150/75 H 97 01/04/19 07:25 01/04/19 07:25 01/04/19 07:25 01/04/19 07:25 01/04/19 07:25 Intake & Output 01/03/19 01/04/19 01/05/19 06:59 06:59 06:59 Intake Total 3233 3594 Output Total 1622 1175 Balance 1611 6299 Weight 105 kg 105 kg General appearance: PRESENT: no acute distress Head exam: PRESENT: normocephalic Eye exam: PRESENT: EOMI Ear exam: PRESENT: normal external ear exam Mouth exam: PRESENT: moist Neck exam: PRESENT: full ROM Respiratory exam: PRESENT: clear to auscultation roman Cardiovascular exam: PRESENT: RRR Pulses: PRESENT: normal radial pulses, normal femoral pulses GI/Abdominal exam: PRESENT: distended, soft Rectal exam: PRESENT: deferred Extremities exam: PRESENT: full ROM, pedal edema, +2 edema Musculoskeletal exam: PRESENT: full ROM Neurological exam: PRESENT: alert, altered, awake, oriented to person, oriented to place Psychiatric exam: PRESENT: appropriate affect Skin exam: PRESENT: dry Results Laboratory Results: 01/04/19 08:20 01/04/19 08:20 01/03/19 01/04/19 01/04/19 21:35 08:20 08:20 WBC 12.9 H RBC 2.97 L Hgb 8.3 L Hct 26.3 L MCV 89 MCH 27.9 MCHC 31.5 L RDW 14.5 H Plt Count 305 Seg Neutrophils % 64.3 Sodium 142.4 Potassium 4.7 Chloride 109 H Carbon Dioxide 27 Anion Gap 6 BUN 20 Creatinine 1.94 H 1.87 H Est GFR ( Amer) 42 L 44 L Glucose 360 H Calcium 8.1 L Magnesium 2.2 Total Bilirubin 0.9 AST 52 Alkaline Phosphatase 188 H Total Protein 6.1 L Albumin 2.4 L 12/31/18 11:50 Catheter Tip - Central Line Catheter Tip Culture - Final NO GROWTH 3 DAYS 12/18/18 12/19/18 12/20/18 22:08 12:00 11:10 Creatine Kinase CK-MB (CK-2) Troponin I 0.059 0.148 0.038 01/03/19 01/03/19 21:35 21:35 Creatine Kinase 48 L CK-MB (CK-2) 0.22 Troponin I < 0.012 Impressions: KUB X-Ray 12/29/18 00:00 IMPRESSION: Nasogastric tube in the gastric body Upper GI Series 12/30/18 00:00 IMPRESSION: NARROWING AT THE GASTROJEJUNAL ANASTOMOSIS WHICH DELAYS GASTRIC EMPTYING INTO THE SMALL BOWEL. Guidance Fluoroscopy 12/31/18 00:00 IMPRESSION: SUCCESSFUL PLACEMENT OF A 5 FR DUAL LUMEN 40 CM PICC IN THE RIGHT BASILIC VEIN. Interventional Vascular Procedure 12/31/18 00:00 IMPRESSION: SUCCESSFUL PLACEMENT OF A 5 FR DUAL LUMEN 40 CM PICC IN THE RIGHT BASILIC VEIN. PICC Line Insertion 12/31/18 00:00 IMPRESSION: SUCCESSFUL PLACEMENT OF A 5 FR DUAL LUMEN 40 CM PICC IN THE RIGHT BASILIC VEIN. Assessment & Plan - Diagnosis (1) Pancreatic malignancy syndrome Is this a current diagnosis for this admission?: Yes - Time Time Spent with patient: 35 or more minutes - Plan Summary Plan Summary: tolerating diet, fulll liquids tpn has been stopped as well as iv fluids labs reviewed wbc 12k today has dependent edema 2-3 + lowere ext edema plan will advance diet to soft lasix 20bid pt on 60 po at home discharge planning, home with home health vs snf
--- NOTE | 2019-01-04 09:39 | PDOC PROGRESS REPORT ---
Subjective Progress Note for:: 01/04/19 Subjective:: RAJAT DANIEL is a 68 year old male past medical history of TIM, diabetes, PTSD, cirrhosis due to hepatitis C, dyslipidemia, CKD, admitted on 12/18/2018 for distal pancreatectomy/splenectomy for underlying tumor of the pancreatic head unfortunately patient went into hemorrhagic shock intraoperatively and was transferred to ICU. Patient transferred back to floor on 12/27/2018 and hospitalist was consulted for medical management. 12/28/2018. No acute events overnight. Patient had one large bowel movement today. Passing flatus. Denies any fever, chills, nausea, vomiting, diarrhea or any urinary symptoms. 12/29/2018. Patient upgraded to IMCU last night due to worsening respiratory symptoms. On my encounter this morning patient is currently resting in bed, on supplemental oxygen, curious about when he can eat, passing flatus, has not had a bowel movement, complaining of diffuse abdominal pain 1/5 on intensity scale, denies any fever, chills, nausea, vomiting, diarrhea, constipation or any urinary symptoms. Feeds are on hold due to high residuals. 12/30/2018. No acute events overnight. Patient feeling better, having normal bowel movements, denies any fever, chills, nausea, vomiting, diarrhea, constipation or urinary symptoms. 01/03/2019. Assumed care today. No acute events overnight. Patient is ambulatory, having normal bowel movements, on full liquid diet, denies any abdominal pain, nausea, vomiting, diarrhea, constipation or any urinary symptoms. NG tube has been removed. Patient still have bilateral drains. 01/04/2019. No acute events overnight. Patient currently resting in his recliner in no apparent distress. Stating that he has been able to tolerate full liquid with no problem, denies any nausea, having normal bowel movement, denies any fever, chills, nausea, vomiting, diarrhea, constipation or any urinary symptoms. As patient is tolerating his p.o. intake we will DC TPN at this point. Reason For Visit: PANCREATIC CANCER Physical Exam Vital Signs: Temp Pulse Resp BP Pulse Ox 98.7 F 83 20 150/75 H 97 01/04/19 07:25 01/04/19 07:25 01/04/19 07:25 01/04/19 07:25 01/04/19 07:25 Intake & Output 1101/04/19 01/05/19 06:59 06:59 06:59 Intake Total 3233 3594 Output Total 1622 1175 Balance 1611 9439 Weight 105 kg 105 kg General appearance: PRESENT: no acute distress, well-developed, well-nourished Respiratory exam: PRESENT: clear to auscultation roman. ABSENT: rales, rhonchi, wheezes Cardiovascular exam: PRESENT: RRR. ABSENT: diastolic murmur, rubs, systolic murmur GI/Abdominal exam: PRESENT: normal bowel sounds, soft. ABSENT: distended, guarding, mass, organolmegaly, rebound, tenderness Extremities exam: PRESENT: +1 edema Neurological exam: PRESENT: alert, awake, oriented to person, oriented to place, oriented to time, oriented to situation, CN II-XII grossly intact. ABSENT: motor sensory deficit Results Laboratory Results: 01/04/19 08:20 01/04/19 08:20 01/03/19 01/04/19 01/04/19 21:35 08:20 08:20 WBC 12.9 H RBC 2.97 L Hgb 8.3 L Hct 26.3 L MCV 89 MCH 27.9 MCHC 31.5 L RDW 14.5 H Plt Count 305 Seg Neutrophils % 64.3 Sodium 142.4 Potassium 4.7 Chloride 109 H Carbon Dioxide 27 Anion Gap 6 BUN 20 Creatinine 1.94 H 1.87 H Est GFR ( Amer) 42 L 44 L Glucose 360 H Calcium 8.1 L Magnesium 2.2 Total Bilirubin 0.9 AST 52 Alkaline Phosphatase 188 H Total Protein 6.1 L Albumin 2.4 L 12/31/18 11:50 Catheter Tip - Central Line Catheter Tip Culture - Final NO GROWTH 3 DAYS 12/18/18 12/19/18 12/20/18 22:08 12:00 11:10 Creatine Kinase CK-MB (CK-2) Troponin I 0.059 0.148 0.038 01/03/19 01/03/19 21:35 21:35 Creatine Kinase 48 L CK-MB (CK-2) 0.22 Troponin I < 0.012 Impressions: KUB X-Ray 12/29/18 00:00 IMPRESSION: Nasogastric tube in the gastric body Upper GI Series 12/30/18 00:00 IMPRESSION: NARROWING AT THE GASTROJEJUNAL ANASTOMOSIS WHICH DELAYS GASTRIC EM PTYING INTO THE SMALL BOWEL. Guidance Fluoroscopy 12/31/18 00:00 IMPRESSION: SUCCESSFUL PLACEMENT OF A 5 FR DUAL LUMEN 40 CM PICC IN THE RIGHT BASILIC VEIN. Interventional Vascular Procedure 12/31/18 00:00 IMPRESSION: SUCCESSFUL PLACEMENT OF A 5 FR DUAL LUMEN 40 CM PICC IN THE RIGHT BASILIC VEIN. PICC Line Insertion 12/31/18 00:00 IMPRESSION: SUCCESSFUL PLACEMENT OF A 5 FR DUAL LUMEN 40 CM PICC IN THE RIGHT BASILIC VEIN. Assessment and Plan - Diagnosis (1) Acute kidney injury superimposed on CKD Is this a current diagnosis for this admission?: Yes Plan: Improving. Prerenal. Likely due to hemorrhagic shock, dehydration and vancomycin. Making adequate urine output. Improving creatinine. DC fluids as patient has some edema bilateral lower extremities. Monitor volume status, electrolytes and replace as needed. Avoid nephrotoxic meds. BMP tomorrow. Note: Vancomycin trough 38.4. I have discussed this with the pharmacist who told me trough is not accurate as it was drawn right after vancomycin initiation. I have changed vancomycin dosage to be dosed and managed by pharmacy (2) Hypertension Is this a current diagnosis for this admission?: Yes Plan: Not optimized. Improving. Home meds are: Losartan 100 mg p.o. daily Lasix 20 mg p.o. daily Carvedilol 25 mg p.o. daily. Amlodipine 10 mg p.o. daily. Currently on metoprolol tartrate 25 mg p.o. twice daily, amlodipine 10 mg p.o. daily and Catapres. Continue IV hydralazine and labetalol as needed. Monitor vital status, adjust meds as needed. (3) Acute respiratory failure with hypoxia Is this a current diagnosis for this admission?: Yes Plan: Resolved. Extubated on 1027. SPO2 WNL on 2 L NC. (4) Pancreatic cancer Qualifiers: Pancreatic malignancy location: head of pancreas Qualified Code(s): C25.0 - Malignant neoplasm of head of pancreas Is this a current diagnosis for this admission?: Yes Plan: Status post distal pancreatectomy and splenectomy on 12/18/2018. Outpatient oncology and PCP follow-up. Defer management to surgical team. (5) Coronary artery disease Qualifiers: Coronary Disease-Associated Artery/Lesion type: [place] artery [place] vs. transplanted heart: [place] heart Associated angina: angina presence unspecified Qualified Code(s): I25.10 - Atherosclerotic heart disease of [place] coronary artery without angina pectoris Is this a current diagnosis for this admission?: Yes Plan: Continue antiplatelets, statins, beta-blockers. Resume meds once kidney function is stabilized. Outpatient PCP and cardiology follow-up. Cardiology on board. (6) Diabetes mellitus type 2 in obese Is this a current diagnosis for this admission?: Yes Plan: Not optimized. Hemoglobin A1c 6.7%. Continue diabetic diet, prandial, basal and sliding scale insulin. Continue Accu-Chek, hypoglycemic protocol. Adjust dose as needed. Outpatient PCP follow-up. (7) MRSA pneumonia Qualifiers: Lung location: unspecified part of lung Is this a current diagnosis for this admission?: Yes Plan: Afebrile. Leukocytosis improving. No bandemia. SPO2 WNL on 2 L NC. 12/21/2017 sputum culture positive for MRSA. Cultures negative so far. Full course of IV meropenem and vancomycin. DC antibiotic at this point. (8) Sepsis Qualifiers: Sepsis type: sepsis due to unspecified organism Qualified Code(s): A41.9 - Sepsis, unspecified organism Is this a current diagnosis for this admission?: Yes Plan: Resolved. Vitals WNL. Likely due to underlying infectious process. Continue empiric IV antibiotics. Monitor vitals. (9) Gram-positive bacteremia Is this a current diagnosis for this admission?: Yes Plan: Due to staph epidermidis 1 out of 4 bottles. Sample taken from central line unsure if contamination. Central line tip culture negative. Blood cultures negative. Received >10 days of IV vancomycin and meropenem. DC antibiotics. Montior vitals. If worsening leukocytosis or febrile will culture again and restart on empiric antibiotics.
[2019-01-04] MEDS: FUROSEMIDE INJ/PF 20 MG/2 ML SDV IV SCH ×2 (10:57→21:54)
[2019-01-04 17:13] LABS: ANION GAP 5 (5-19); BLOOD UREA NITROGEN 20 mg/dL (7-20); CALCIUM 8.2 mg/dL (8.4-10.2); CARBON DIOXIDE 29 mmol/L (22-30); CHLORIDE 110 mmol/L (98-107); GLUCOSE 122 mg/dL (75-110); POTASSIUM 4.3 mmol/L (3.6-5.0)
[2019-01-04] MEDS: ATORVASTATIN CALCIUM 20 MG TABLET PO SCH (21:55)
--- NOTE | 2019-01-04 22:08 | EKG REPORT ---
SEVERITY:- OTHERWISE NORMAL ECG - SINUS RHYTHM LOW VOLTAGE IN FRONTAL LEADS : Confirmed by: Amadeo Benitez 04-Jan-2019 22:07:39
[2019-01-05] MEDS: ERYTHROMYCIN LACTOBIONATE 250 MG in NORMAL SALINE 100 ML IV SCH ×3 (02:24→18:02)
[2019-01-05] MEDS: HYDROMORPHONE HCL INJ/PF 2 MG/ML AMPULE IV PRN ×5 (02:24→21:46)
[2019-01-05] MEDS: METOCLOPRAMIDE HCL INJ/PF 10 MG/2 ML SDV IV SCH ×4 (02:25→21:45)
[2019-01-05] MEDS: HEPARIN SOD (PORCINE) 5,000 UNIT/ML 1 ML VIAL SUBCUT SCH ×3 (06:23→21:45)
[2019-01-05 07:04] LABS: ABSOLUTE EOSINOPHILS # (AUTO) 0.6 10^3/uL (0.0-0.6); ABSOLUTE LYMPHOCYTES (AUTO) 1.6 10^3/uL (0.5-4.7); ABSOLUTE MONOCYTES (AUTO) 1.6 10^3/uL (0.1-1.4); ABSOLUTE NEUT (AUTO) 7.3 10^3/uL (1.7-8.2); BASOPHILS % (AUTO) 0.2 % (0-2); EOSINOPHILS % (AUTO) 5.1 % (0-6); HEMOGLOBIN 8.1 g/dL (13.5-17.0); LYMPHOCYTES % (AUTO) 14.7 % (13-45); MEAN CORPUSCULAR HEMOGLOBIN 28.1 pg (27.0-33.4); MEAN CORPUSCULAR HGB CONC 32.3 g/dL (32.0-36.0); MEAN CORPUSCULAR VOLUME 87 fl (80-97); MONOCYTES % (AUTO) 14.6 % (3-13); PLATELET COUNT 284 10^3/uL (150-450); RED BLOOD COUNT 2.87 10^6/uL (4.35-5.55); RED CELL DISTRIBUTION WIDTH 14.3 % (11.5-14.0); SEGMENTED NEUTROPHILS % (AUTO) 65.4 % (42-78); TOTAL CELLS COUNTED % (AUTO) 100 %; WHITE BLOOD COUNT 11.2 10^3/uL (4.0-10.5)
[2019-01-05 07:21] LABS: ANION GAP 5 (5-19); BLOOD UREA NITROGEN 19 mg/dL (7-20); CALCIUM 8.2 mg/dL (8.4-10.2); CARBON DIOXIDE 27 mmol/L (22-30); CHLORIDE 110 mmol/L (98-107); GLUCOSE 120 mg/dL (75-110); POTASSIUM 4.9 mmol/L (3.6-5.0)
--- NOTE | 2019-01-05 07:57 | PDOC PROGRESS REPORT ---
Subjective Progress Note for:: 01/05/19 Subjective:: feels ok tolerating regular food no nausea,vomjiting Reason For Visit: PANCREATIC CANCER Physical Exam Vital Signs: Temp Pulse Resp BP Pulse Ox 98.8 F 76 18 143/78 H 92 01/05/19 03:39 01/05/19 07:00 01/05/19 03:39 01/05/19 03:39 01/05/19 03:39 Intake & Output 01/04/19 01/05/19 01/06/19 06:59 06:59 06:59 Intake Total 3594 1422 Output Total 1175 565 Balance 3160 857 Weight 105 kg 106.3 kg General appearance: PRESENT: no acute distress Head exam: PRESENT: normocephalic Eye exam: PRESENT: EOMI Mouth exam: PRESENT: moist Neck exam: PRESENT: full ROM Respiratory exam: PRESENT: clear to auscultation roman Cardiovascular exam: PRESENT: RRR Pulses: PRESENT: normal femoral pulses, +2 pedal pulses bilateral GI/Abdominal exam: PRESENT: distended, soft Rectal exam: PRESENT: deferred Extremities exam: PRESENT: full ROM Musculoskeletal exam: PRESENT: full ROM Neurological exam: PRESENT: alert, awake, oriented to person, oriented to place Psychiatric exam: PRESENT: appropriate affect Skin exam: PRESENT: dry Results Laboratory Results: 01/05/19 06:45 01/05/19 06:45 01/04/19 01/04/19 01/04/19 08:20 08:20 16:40 WBC 12.9 H RBC 2.97 L Hgb 8.3 L Hct 26.3 L MCV 89 MCH 27.9 MCHC 31.5 L RDW 14.5 H Plt Count 305 Seg Neutrophils % 64.3 Sodium 142.4 144.4 Potassium 4.7 4.3 Chloride 109 H 110 H Carbon Dioxide 27 29 Anion Gap 6 5 BUN 20 20 Creatinine 1.87 H 2.05 H Est GFR ( Amer) 44 L 39 L Glucose 360 H 122 H Calcium 8.1 L 8.2 L Magnesium 2.2 Total Bilirubin 0.9 AST 52 Alkaline Phosphatase 188 H Total Protein 6.1 L Albumin 2.4 L 01/05/19 01/05/19 06:45 06:45 WBC 11.2 H RBC 2.87 L Hgb 8.1 L Hct 25.0 L MCV 87 MCH 28.1 MCHC 32.3 RDW 14.3 H Plt Count 284 Seg Neutrophils % 65.4 Sodium 141.5 Potassium 4.9 Chloride 110 H Carbon Dioxide 27 Anion Gap 5 BUN 19 Creatinine 1.95 H Est GFR ( Amer) 41 L Glucose 120 H Calcium 8.2 L Magnesium Total Bilirubin AST Alkaline Phosphatase Total Protein Albumin 12/18/18 12/19/18 12/20/18 22:08 12:00 11:10 Creatine Kinase CK-MB (CK-2) Troponin I 0.059 0.148 0.038 01/03/19 01/03/19 21:35 21:35 Creatine Kinase 48 L CK-MB (CK-2) 0.22 Troponin I < 0.012 Impressions: KUB X-Ray 12/29/18 00:00 IMPRESSION: Nasogastric tube in the gastric body Upper GI Series 12/30/18 00:00 IMPRESSION: NARROWING AT THE GASTROJEJUNAL ANASTOMOSIS WHICH DELAYS GASTRIC EMPTYING INTO THE SMALL BOWEL. Guidance Fluoroscopy 12/31/18 00:00 IMPRESSION: SUCCESSFUL PLACEMENT OF A 5 FR DUAL LUMEN 40 CM PICC IN THE RIGHT BASILIC VEIN. Interventional Vascular Procedure 12/31/18 00:00 IMPRESSION: SUCCESSFUL PLACEMENT OF A 5 FR DUAL LUMEN 40 CM PICC IN THE RIGHT BASILIC VEIN. PICC Line Insertion 12/31/18 00:00 IMPRESSION: SUCCESSFUL PLACEMENT OF A 5 FR DUAL LUMEN 40 CM PICC IN THE RIGHT BASILIC VEIN. Assessment & Plan - Diagnosis (1) Pancreatic malignancy syndrome Is this a current diagnosis for this admission?: Yes - Time Time Spent with patient: 25-34 minutes - Plan Summary Plan Summary: doing much better still with some abd distension, suspect ascites will sl increase lasix to 40bid, (he has been on 60q day at home) now tolerating reg food will plan on dc home tomorrow when bed availabe either at snf or hospital bed at home.
[2019-01-05] MEDS: INSULIN REG, HUMAN 100 UNIT/ML 3 ML VIAL (PYX) SUBCUT SCH ×4 (09:13→21:47)
[2019-01-05] MEDS: FUROSEMIDE INJ/PF 40 MG/4 ML SDV IV SCH ×2 (09:27→21:45)
[2019-01-05] MEDS: NITROGLYCERIN 15 MG (0.6 MG/1 HR) PATCH.TD24 TD SCH (09:27)
[2019-01-05] MEDS: AMLODIPINE BESYLATE 10 MG TABLET PO SCH (09:28)
[2019-01-05] MEDS: LOSARTAN POTASSIUM 50 MG TABLET PO SCH (09:28)
[2019-01-05] MEDS: METOPROLOL TARTRATE 50 MG TABLET PO SCH ×2 (09:28→21:45)
[2019-01-05] MEDS: ASPIRIN 81 MG TABLET, CHEWABLE PO SCH (09:28)
[2019-01-05] MEDS: INSULIN GLARGINE,HUM.REC.ANLOG 1,000 UNIT/10 ML VIAL SUBCUT SCH (09:28)
[2019-01-05] MEDS: NORMAL SALINE 10 ML SDV (SCHEDULED) IV SCH ×2 (09:29→21:47)
[2019-01-05] MEDS ORDERED: FUROSEMIDE INJ/PF 20 MG/2 ML SDV IV SCH (10:00)
--- NOTE | 2019-01-05 14:23 | PDOC PROGRESS REPORT ---
Subjective Progress Note for:: 01/05/19 Subjective:: No adverse events overnight. No new complaints. He is on regular food now. He had a bit of an elevated temperature earlier but has not had any chills or cough. Reason For Visit: PANCREATIC CANCER Physical Exam Vital Signs: Temp Pulse Resp BP Pulse Ox 100.0 F 69 18 113/70 96 01/05/19 11:17 01/05/19 14:00 01/05/19 11:17 01/05/19 11:17 01/05/19 11:17 Intake & Output 01/04/19 01/05/19 01/06/19 06:59 06:59 06:59 Intake Total 3594 1422 480 Output Total 1175 565 300 Balance 2419 857 180 Weight 105 kg 106.3 kg General appearance: PRESENT: no acute distress, cooperative, disheveled, obese Respiratory exam: PRESENT: clear to auscultation roman, symmetrical, unlabored. ABSENT: accessory muscle use, chest wall tenderness, crackles, prolonged expiratory phas, rhonchi, tachypnea, wheezes Cardiovascular exam: PRESENT: RRR, +S1, +S2 Pulses: PRESENT: normal carotid pulses Vascular exam: PRESENT: normal capillary refill GI/Abdominal exam: PRESENT: distended - Dullness to percussion, likely ascites, normal bowel sounds, soft. ABSENT: guarding, rebound, tenderness Extremities exam: PRESENT: pedal edema, +2 edema. ABSENT: clubbing Musculoskeletal exam: PRESENT: normal inspection. ABSENT: deformity Neurological exam: PRESENT: alert, awake, oriented to person, oriented to place Psychiatric exam: PRESENT: flat affect Skin exam: PRESENT: dry, warm Results Laboratory Results: 01/05/19 06:45 01/05/19 06:45 01/04/19 01/05/19 01/05/19 16:40 06:45 06:45 WBC 11.2 H RBC 2.87 L Hgb 8.1 L Hct 25.0 L MCV 87 MCH 28.1 MCHC 32.3 RDW 14.3 H Plt Count 284 Seg Neutrophils % 65.4 Sodium 144.4 141.5 Potassium 4.3 4.9 Chloride 110 H 110 H Carbon Dioxide 29 27 Anion Gap 5 5 BUN 20 19 Creatinine 2.05 H 1.95 H Est GFR ( Amer) 39 L 41 L Glucose 122 H 120 H Calcium 8.2 L 8.2 L 12/18/18 12/19/18 12/20/18 22:08 12:00 11:10 Creatine Kinase CK-MB (CK-2) Troponin I 0.059 0.148 0.038 01/03/19 01/03/19 21:35 21:35 Creatine Kinase 48 L CK-MB (CK-2) 0.22 Troponin I < 0.012 Impressions: KUB X-Ray 12/29/18 00:00 IMPRESSION: Nasogastric tube in the gastric body Upper GI Series 12/30/18 00:00 IMPRESSION: NARROWING AT THE GASTROJEJUNAL ANASTOMOSIS WHICH DELAYS GASTRIC EMPTYING INTO THE SMALL BOWEL. Guidance Fluoroscopy 12/31/18 00:00 IMPRESSION: SUCCESSFUL PLACEMENT OF A 5 FR DUAL LUMEN 40 CM PICC IN THE RIGHT BASILIC VEIN. Interventional Vascular Procedure 12/31/18 00:00 IMPRESSION: SUCCESSFUL PLACEMENT OF A 5 FR DUAL LUMEN 40 CM PICC IN THE RIGHT BASILIC VEIN. PICC Line Insertion 12/31/18 00:00 IMPRESSION: SUCCESSFUL PLACEMENT OF A 5 FR DUAL LUMEN 40 CM PICC IN THE RIGHT BASILIC VEIN. Assessment and Plan - Diagnosis (1) Acute blood loss as cause of postoperative anemia Is this a current diagnosis for this admission?: Yes Plan: Resolved (2) Acute kidney injury superimposed on CKD Is this a current diagnosis for this admission?: Yes Plan: Creatinine still elevated just a little bit above his typical range but certainly not too far off from where his creatinine normally runs (3) Acute respiratory failure with hypoxia Is this a current diagnosis for this admission?: Yes Plan: Currently stable on minimal oxygen support (4) Cirrhosis of liver Qualifiers: Hepatic cirrhosis type: unspecified hepatic cirrhosis Ascites presence: without ascites Qualified Code(s): K74.60 - Unspecified cirrhosis of liver Is this a current diagnosis for this admission?: Yes Plan: Monitoring volume status closely, Lasix has been increased (5) MRSA pneumonia Qualifiers: Lung location: unspecified part of lung Is this a current diagnosis for this admission?: Yes Plan: Resolved (6) Pancreatic cancer Qualifiers: Pancreatic malignancy location: head of pancreas Qualified Code(s): C25.0 - Malignant neoplasm of head of pancreas Is this a current diagnosis for this admission?: Yes Plan: Status post distal pancreatectomy and splenectomy on 12/18/2018. Outpatient oncology and PCP follow-up. Defer management to surgical team. - Time Time Spent with patient: 15-24 minutes
[2019-01-05] MEDS: ATORVASTATIN CALCIUM 20 MG TABLET PO SCH (21:45)
[2019-01-06] MEDS: ERYTHROMYCIN LACTOBIONATE 250 MG in NORMAL SALINE 100 ML IV SCH ×2 (01:27→09:20)
[2019-01-06] MEDS: METOCLOPRAMIDE HCL INJ/PF 10 MG/2 ML SDV IV SCH ×4 (04:07→22:41)
[2019-01-06] MEDS: HYDROMORPHONE HCL INJ/PF 2 MG/ML AMPULE IV PRN ×3 (04:55→18:17)
[2019-01-06 05:16] LABS: ABSOLUTE EOSINOPHILS # (AUTO) 0.7 10^3/uL (0.0-0.6); ABSOLUTE LYMPHOCYTES (AUTO) 2.5 10^3/uL (0.5-4.7); ABSOLUTE NEUT (AUTO) 5.6 10^3/uL (1.7-8.2); BASOPHILS % (AUTO) 0.3 % (0-2); EOSINOPHILS % (AUTO) 6.3 % (0-6); HEMATOCRIT 25.2 % (37.9-51.0); HEMOGLOBIN 8.1 g/dL (13.5-17.0); LYMPHOCYTES % (AUTO) 22.7 % (13-45); MEAN CORPUSCULAR HEMOGLOBIN 28.1 pg (27.0-33.4); MEAN CORPUSCULAR HGB CONC 32.1 g/dL (32.0-36.0); MEAN CORPUSCULAR VOLUME 87 fl (80-97); MONOCYTES % (AUTO) 18.7 % (3-13); PLATELET COUNT 271 10^3/uL (150-450); RED BLOOD COUNT 2.89 10^6/uL (4.35-5.55); RED CELL DISTRIBUTION WIDTH 14.5 % (11.5-14.0); TOTAL CELLS COUNTED % (AUTO) 100 %; WHITE BLOOD COUNT 10.9 10^3/uL (4.0-10.5)
[2019-01-06] MEDS: HEPARIN SOD (PORCINE) 5,000 UNIT/ML 1 ML VIAL SUBCUT SCH ×3 (05:53→22:40)
[2019-01-06 07:30] LABS: ANION GAP 5 (5-19); BLOOD UREA NITROGEN 18 mg/dL (7-20); CALCIUM 8.1 mg/dL (8.4-10.2); CARBON DIOXIDE 29 mmol/L (22-30); CHLORIDE 104 mmol/L (98-107); GLUCOSE 119 mg/dL (75-110); POTASSIUM 4.4 mmol/L (3.6-5.0)
--- NOTE | 2019-01-06 07:59 | PDOC PROGRESS REPORT ---
Subjective Progress Note for:: 01/06/19 Subjective:: feels well Reason For Visit: PANCREATIC CANCER Physical Exam Vital Signs: Temp Pulse Resp BP Pulse Ox 99.6 F 66 16 149/75 H 95 01/06/19 04:28 01/06/19 06:37 01/06/19 04:28 01/06/19 04:28 01/06/19 04:28 Intake & Output 01/05/19 01/06/19 01/07/19 06:59 06:59 06:59 Intake Total 1422 900 Output Total 565 1850 Balance 857 -950 Weight 106.3 kg 102.9 kg General appearance: PRESENT: no acute distress Head exam: PRESENT: normocephalic Eye exam: PRESENT: EOMI Ear exam: PRESENT: normal external ear exam Mouth exam: PRESENT: moist Neck exam: PRESENT: full ROM Respiratory exam: PRESENT: clear to auscultation roman Cardiovascular exam: PRESENT: RRR Pulses: PRESENT: +1 pedal pulses bilateral, +2 pedal pulses bilateral Vascular exam: PRESENT: normal capillary refill GI/Abdominal exam: PRESENT: soft Rectal exam: PRESENT: deferred Extremities exam: PRESENT: full ROM Musculoskeletal exam: PRESENT: full ROM Neurological exam: PRESENT: alert, awake, oriented to person, oriented to place Skin exam: PRESENT: dry Results Laboratory Results: 01/06/19 05:00 01/06/19 05:00 01/06/19 01/06/19 05:00 05:00 WBC 10.9 H RBC 2.89 L Hgb 8.1 L Hct 25.2 L MCV 87 MCH 28.1 MCHC 32.1 RDW 14.5 H Plt Count 271 Seg Neutrophils % 52.0 Sodium 138.2 Potassium 4.4 Chloride 104 Carbon Dioxide 29 Anion Gap 5 BUN 18 Creatinine 2.26 H Est GFR ( Amer) 35 L Glucose 119 H Calcium 8.1 L 12/18/18 12/19/18 12/20/18 22:08 12:00 11:10 Creatine Kinase CK-MB (CK-2) Troponin I 0.059 0.148 0.038 01/03/19 01/03/19 21:35 21:35 Creatine Kinase 48 L CK-MB (CK-2) 0.22 Troponin I < 0.012 Impressions: KUB X-Ray 12/29/18 00:00 IMPRESSION: Nasogastric tube in the gastric body Upper GI Series 12/30/18 00:00 IMPRESSION: NARROWING AT THE GASTROJEJUNAL ANASTOMOSIS WHICH DELAYS GASTRIC EMPTYING INTO THE SMALL BOWEL. Guidance Fluoroscopy 12/31/18 00: IMPRESSION: SUCCESSFUL PLACEMENT OF A 5 FR DUAL LUMEN 40 CM PICC IN THE RIGHT BASILIC VEIN. Interventional Vascular Procedure 12/31/18 00:00 IMPRESSION: SUCCESSFUL PLACEMENT OF A 5 FR DUAL LUMEN 40 CM PICC IN THE RIGHT BASILIC VEIN. PICC Line Insertion 12/31/18 00:00 IMPRESSION: SUCCESSFUL PLACEMENT OF A 5 FR DUAL LUMEN 40 CM PICC IN THE RIGHT BASILIC VEIN. Assessment & Plan - Diagnosis (1) Pancreatic malignancy syndrome Is this a current diagnosis for this admission?: Yes - Time Time Spent with patient: 35 or more minutes - Plan Summary Plan Summary: pt curtis po reg diet rt sided jesys and feeding tube and kiarra removed pt waiting for bed in snf. will dc when bed available.
[2019-01-06] MEDS: INSULIN REG, HUMAN 100 UNIT/ML 3 ML VIAL (PYX) SUBCUT SCH ×4 (09:00→22:32)
[2019-01-06] MEDS: FUROSEMIDE INJ/PF 40 MG/4 ML SDV IV SCH ×2 (09:15→22:41)
[2019-01-06] MEDS: INSULIN GLARGINE,HUM.REC.ANLOG 1,000 UNIT/10 ML VIAL SUBCUT SCH (09:16)
[2019-01-06] MEDS: LOSARTAN POTASSIUM 50 MG TABLET PO SCH (09:16)
[2019-01-06] MEDS: ASPIRIN 81 MG TABLET, CHEWABLE PO SCH (09:16)
[2019-01-06] MEDS: AMLODIPINE BESYLATE 10 MG TABLET PO SCH (09:16)
[2019-01-06] MEDS: METOPROLOL TARTRATE 50 MG TABLET PO SCH ×2 (09:16→22:40)
[2019-01-06] MEDS: NITROGLYCERIN 15 MG (0.6 MG/1 HR) PATCH.TD24 TD SCH (09:17)
[2019-01-06] MEDS: NORMAL SALINE 10 ML SDV (SCHEDULED) IV SCH ×2 (09:17→22:42)
--- NOTE | 2019-01-06 13:20 | PDOC PROGRESS REPORT ---
Subjective Progress Note for:: 01/06/19 Subjective:: No adverse events overnight. No new complaints. He is on regular food now. Creatinine has bumped a little bit. Had some abdominal pain earlier but got some pain medication and is not complaining of any pain now. Reason For Visit: PANCREATIC CANCER Physical Exam Vital Signs: Temp Pulse Resp BP Pulse Ox 97.5 F 73 16 143/75 H 97 01/06/19 07:55 01/06/19 12:47 01/06/19 12:47 01/06/19 07:55 01/06/19 12:47 Intake & Output 01/05/19 01/06/19 01/07/19 06:59 06:59 06:59 Intake Total 1422 900 Output Total 565 1850 Balance 857 -950 Weight 106.3 kg 102.9 kg General appearance: PRESENT: no acute distress, cooperative, disheveled, obese Respiratory exam: PRESENT: clear to auscultation roman, symmetrical, unlabored. ABSENT: accessory muscle use, chest wall tenderness, crackles, prolonged expiratory phas, rhonchi, tachypnea, wheezes Cardiovascular exam: PRESENT: RRR, +S1, +S2 Pulses: PRESENT: normal carotid pulses Vascular exam: PRESENT: normal capillary refill GI/Abdominal exam: PRESENT: distended - Dullness to percussion, likely ascites, normal bowel sounds, soft. ABSENT: guarding, rebound, tenderness Extremities exam: PRESENT: pedal edema, +2 edema. ABSENT: clubbing Musculoskeletal exam: PRESENT: normal inspection. ABSENT: deformity Neurological exam: PRESENT: alert, awake, oriented to person, oriented to place Psychiatric exam: PRESENT: flat affect Skin exam: PRESENT: dry, warm Results Laboratory Results: 01/06/19 05:00 01/06/19 05:00 01/06/19 01/06/19 05:00 05:00 WBC 10.9 H RBC 2.89 L Hgb 8.1 L Hct 25.2 L MCV 87 MCH 28.1 MCHC 32.1 RDW 14.5 H Plt Count 271 Seg Neutrophils % 52.0 Sodium 138.2 Potassium 4.4 Chloride 104 Carbon Dioxide 29 Anion Gap 5 BUN 18 Creatinine 2.26 H Est GFR ( Amer) 35 L Glucose 119 H Calcium 8.1 L 12/18/18 12/19/18 12/20/18 22:08 12:00 11:10 Creatine Kinase CK-MB (CK-2) Troponin I 0.059 0.148 0.038 01/03/19 01/03/19 21:35 21:35 Creatine Kinase 48 L CK-MB (CK-2) 0.22 Troponin I < 0.012 Impressions: KUB X-Ray 12/29/18 00:00 IMPRESSION: Nasogastric tube in the gastric body Upper GI Series 12/30/18 00:00 IMPRESSION: NARROWING AT THE GASTROJEJUNAL ANASTOMOSIS WHICH DELAYS GASTRIC EMPTYING INTO THE SMALL BOWEL. Guidance Fluoroscopy 12/31/18 00:00 IMPRESSION: SUCCESSFUL PLACEMENT OF A 5 FR DUAL LUMEN 40 CM PICC IN THE RIGHT BASILIC VEIN. Interventional Vascular Procedure 12/31/18 00:00 IMPRESSION: SUCCESSFUL PLACEMENT OF A 5 FR DUAL LUMEN 40 CM PICC IN THE RIGHT BASILIC VEIN. PICC Line Insertion 12/31/18 00:00 IMPRESSION: SUCCESSFUL PLACEMENT OF A 5 FR DUAL LUMEN 40 CM PICC IN THE RIGHT BASILIC VEIN. Assessment and Plan - Diagnosis (1) Acute blood loss as cause of postoperative anemia Is this a current diagnosis for this admission?: Yes Plan: Resolved (2) Acute kidney injury superimposed on CKD Is this a current diagnosis for this admission?: Yes Plan: His Lasix was increased yesterday and his urine output is picked up but his creatinine is a little bit worse. Agree with the need for diuresis, but if his creatinine continues to deteriorate were going to have to consider pulling back on his Lasix, or possibly consider giving smaller doses more frequently (3) Acute respiratory failure with hypoxia Is this a current diagnosis for this admission?: Yes Plan: Currently stable on minimal oxygen support (4) Cirrhosis of liver Qualifiers: Hepatic cirrhosis type: unspecified hepatic cirrhosis Ascites presence: without ascites Qualified Code(s): K74.60 - Unspecified cirrhosis of liver Is this a current diagnosis for this admission?: Yes Plan: Monitoring volume status closely, Lasix has been increased (5) MRSA pneumonia Qualifiers: Lung location: unspecified part of lung Is this a current diagnosis for this admission?: Yes Plan: Resolved (6) Pancreatic cancer Qualifiers: Pancreatic malignancy location: head of pancreas Qualified Code(s): C25.0 - Malignant neoplasm of head of pancreas Is this a current diagnosis for this admission?: Yes Plan: Status post distal pancreatectomy and splenectomy on 12/18/2018. Outpatient oncology and PCP follow-up. Defer management to surgical team. Currently awaiting SNF bed. - Time Time Spent with patient: 15-24 minutes
[2019-01-06] MEDS: ATORVASTATIN CALCIUM 20 MG TABLET PO SCH (22:41)
[2019-01-07] MEDS: METOCLOPRAMIDE HCL INJ/PF 10 MG/2 ML SDV IV SCH ×3 (03:00→14:27)
[2019-01-07 05:17] LABS: ABSOLUTE BASOPHILS # (AUTO) 0.1 10^3/uL (0.0-0.2); ABSOLUTE EOSINOPHILS # (AUTO) 0.5 10^3/uL (0.0-0.6); ABSOLUTE LYMPHOCYTES (AUTO) 2.8 10^3/uL (0.5-4.7); ABSOLUTE MONOCYTES (AUTO) 2.5 10^3/uL (0.1-1.4); ABSOLUTE NEUT (AUTO) 8.6 10^3/uL (1.7-8.2); BASOPHILS % (AUTO) 0.4 % (0-2); EOSINOPHILS % (AUTO) 3.5 % (0-6); HEMATOCRIT 26.2 % (37.9-51.0); HEMOGLOBIN 8.4 g/dL (13.5-17.0); LYMPHOCYTES % (AUTO) 19.6 % (13-45); MEAN CORPUSCULAR HEMOGLOBIN 27.9 pg (27.0-33.4); MEAN CORPUSCULAR VOLUME 87 fl (80-97); MONOCYTES % (AUTO) 17.2 % (3-13); PLATELET COUNT 274 10^3/uL (150-450); RED BLOOD COUNT 3.01 10^6/uL (4.35-5.55); RED CELL DISTRIBUTION WIDTH 14.3 % (11.5-14.0); SEGMENTED NEUTROPHILS % (AUTO) 59.3 % (42-78); TOTAL CELLS COUNTED % (AUTO) 100 %; WHITE BLOOD COUNT 14.4 10^3/uL (4.0-10.5)
[2019-01-07 05:27] LABS: ANION GAP 6 (5-19); BLOOD UREA NITROGEN 18 mg/dL (7-20); CALCIUM 8.5 mg/dL (8.4-10.2); CARBON DIOXIDE 31 mmol/L (22-30); CHLORIDE 104 mmol/L (98-107); GLUCOSE 72 mg/dL (75-110); POTASSIUM 4.4 mmol/L (3.6-5.0)
--- NOTE | 2019-01-07 07:20 | PDOC PROGRESS REPORT ---
Subjective Progress Note for:: 01/07/19 Subjective:: feels ok this am had some abd pain last pm, now none low blood glucose last pm, responded to oral intake passing stool, flatus Reason For Visit: PANCREATIC CANCER Physical Exam Vital Signs: Temp Pulse Resp BP Pulse Ox 99.7 F 69 16 136/70 H 94 01/07/19 03:08 01/07/19 03:08 01/07/19 03:08 01/07/19 03:08 01/07/19 03:08 Intake & Output 01/06/19 01/07/19 01/08/19 06:59 06:59 06:59 Intake Total 900 1275 Output Total 1850 2230 Balance -950 -955 Weight 102.9 kg General appearance: PRESENT: no acute distress Head exam: PRESENT: normocephalic Eye exam: PRESENT: EOMI Ear exam: PRESENT: normal external ear exam Mouth exam: PRESENT: moist Neck exam: PRESENT: full ROM Respiratory exam: PRESENT: clear to auscultation roman Cardiovascular exam: PRESENT: RRR Pulses: PRESENT: normal radial pulses, normal femoral pulses Vascular exam: PRESENT: normal capillary refill GI/Abdominal exam: PRESENT: soft, other - abd much softer since lasix, less drainage from jessy site on rt and min op via left jessy Rectal exam: PRESENT: deferred Extremities exam: PRESENT: full ROM Musculoskeletal exam: PRESENT: full ROM Neurological exam: PRESENT: alert, awake, oriented to person, oriented to place, oriented to time, oriented to situation Psychiatric exam: PRESENT: appropriate affect Skin exam: PRESENT: dry Results Laboratory Results: 01/07/19 04:25 01/07/19 04:25 01/06/19 01/06/19 01/07/19 05:00 14:30 04:25 WBC RBC Hgb Hct MCV MCH MCHC RDW Plt Count Seg Neutrophils % Sodium 138.2 141.4 Potassium 4.4 4.4 Chloride 104 104 Carbon Dioxide 29 31 H Anion Gap 5 6 BUN 18 18 Creatinine 2.26 H 2.37 H Est GFR ( Amer) 35 L 33 L Glucose 119 H 72 L Calcium 8.1 L 8.5 Triglycerides 109 01/07/19 04:25 WBC 14.4 H RBC 3.01 L Hgb 8.4 L Hct 26.2 L MCV 87 MCH 27.9 MCHC 32.0 RDW 14.3 H Plt Count 274 Seg Neutrophils % 59.3 Sodium Potassium Chloride Carbon Dioxide Anion Gap BUN Creatinine Est GFR ( Amer) Glucose Calcium Triglycerides 12/18/18 12/19/18 12/20/18 22:08 12:00 11:10 Creatine Kinase CK-MB (CK-2) Troponin I 0.059 0.148 0.038 01/03/19 01/03/19 21:35 21:35 Creatine Kinase 48 L CK-MB (CK-2) 0.22 Troponin I < 0.012 Impressions: KUB X-Ray 12/29/18 00:00 IMPRESSION: Nasogastric tube in the gastric body Upper GI Series 12/30/18 00:00 IMPRESSION: NARROWING AT THE GASTROJEJUNAL ANASTOMOSIS WHICH DELAYS GASTRIC EMPTYING INTO THE SMALL BOWEL. Guidance Fluoroscopy 12/31/18 00:00 IMPRESSION: SUCCESSFUL PLACEMENT OF A 5 FR DUAL LUMEN 40 CM PICC IN THE RIGHT BASILIC VEIN. Interventional Vascular Procedure 12/31/18 00:00 IMPRESSION: SUCCESSFUL PLACEMENT OF A 5 FR DUAL LUMEN 40 CM PICC IN THE RIGHT BASILIC VEIN. PICC Line Insertion 12/31/18 00:00 IMPRESSION: SUCCESSFUL PLACEMENT OF A 5 FR DUAL LUMEN 40 CM PICC IN THE RIGHT BASILIC VEIN. Assessment & Plan - Diagnosis (1) Pancreatic malignancy syndrome Is this a current diagnosis for this admission?: Yes - Time Time Spent with patient: 35 or more minutes - Plan Summary Plan Summary: creat has increased due to lasix diursis will decrease back to 20mg bid (was on 60mg at home) awaiting placement.
[2019-01-07] MEDS: INSULIN REG, HUMAN 100 UNIT/ML 3 ML VIAL (PYX) SUBCUT SCH ×2 (08:33→13:16)
[2019-01-07] MEDS: HEPARIN SOD (PORCINE) 5,000 UNIT/ML 1 ML VIAL SUBCUT SCH ×2 (09:17→14:24)
[2019-01-07] MEDS: LOSARTAN POTASSIUM 50 MG TABLET PO SCH (09:18)
[2019-01-07] MEDS: ASPIRIN 81 MG TABLET, CHEWABLE PO SCH (09:18)
[2019-01-07] MEDS: METOPROLOL TARTRATE 50 MG TABLET PO SCH (09:18)
[2019-01-07] MEDS: NORMAL SALINE 10 ML SDV (SCHEDULED) IV SCH (09:18)
[2019-01-07] MEDS: AMLODIPINE BESYLATE 10 MG TABLET PO SCH (09:18)
[2019-01-07] MEDS: NITROGLYCERIN 15 MG (0.6 MG/1 HR) PATCH.TD24 TD SCH (09:19)
[2019-01-07] MEDS: HYDROMORPHONE HCL INJ/PF 2 MG/ML AMPULE IV PRN ×2 (09:29→14:27)
[2019-01-07] MEDS ORDERED: NYSTATIN TOPICAL POWDER 15 GM TP SCH (10:00)
[2019-01-07] MEDS ORDERED: INSULIN GLARGINE,HUM.REC.ANLOG 1,000 UNIT/10 ML VIAL SUBCUT SCH ×2 (10:00)
[2019-01-07] MEDS ORDERED: FUROSEMIDE INJ/PF 20 MG/2 ML SDV IV SCH (10:00)
--- NOTE | 2019-01-07 10:39 | PDOC PROGRESS REPORT ---
Subjective Progress Note for:: 01/07/19 Subjective:: RAJAT DANIEL is a 68 year old male past medical history of TIM, diabetes, PTSD, cirrhosis due to hepatitis C, dyslipidemia, CKD, admitted on 12/18/2018 for distal pancreatectomy/splenectomy for underlying tumor of the pancreatic head unfortunately patient went into hemorrhagic shock intraoperatively and was transferred to ICU. Patient transferred back to floor on 12/27/2018 and hospitalist was consulted for medical management. 12/28/2018. No acute events overnight. Patient had one large bowel movement today. Passing flatus. Denies any fever, chills, nausea, vomiting, diarrhea or any urinary symptoms. 12/29/2018. Patient upgraded to IMCU last night due to worsening respiratory symptoms. On my encounter this morning patient is currently resting in bed, on supplemental oxygen, curious about when he can eat, passing flatus, has not had a bowel movement, complaining of diffuse abdominal pain 1/5 on intensity scale, denies any fever, chills, nausea, vomiting, diarrhea, constipation or any urinary symptoms. Feeds are on hold due to high residuals. 12/30/2018. No acute events overnight. Patient feeling better, having normal bowel movements, denies any fever, chills, nausea, vomiting, diarrhea, constipation or urinary symptoms. 01/03/2019. Assumed care today. No acute events overnight. Patient is ambulatory, having normal bowel movements, on full liquid diet, denies any abdominal pain, nausea, vomiting, diarrhea, constipation or any urinary symptoms. NG tube has been removed. Patient still have bilateral drains. 01/04/2019. No acute events overnight. Patient currently resting in his recliner in no apparent distress. Stating that he has been able to tolerate full liquid with no problem, denies any nausea, having normal bowel movement, denies any fever, chills, nausea, vomiting, diarrhea, constipation or any urinary symptoms. As patient is tolerating his p.o. intake we will DC TPN at this point. 01/07/2019. No acute events overnight. Patient drains are off as of yesterday. On my encounter patient is somnolent but easily arousable, he received 1 dose of Dilaudid last night. Does not seem to be in acute distress. He is p.o. tolerant and having normal bowel and bladder movement. Denies any nausea, chest pain or shortness of breath. Reason For Visit: PANCREATIC CANCER Physical Exam Vital Signs: Temp Pulse Resp BP Pulse Ox 98.9 F 72 16 137/71 H 94 01/07/19 08:30 01/07/19 08:30 01/07/19 08:30 01/07/19 08:30 01/07/19 08:30 Intake & Output 01/06/19 01/07/19 01/08/19 06:59 06:59 06:59 Intake Total 900 1275 Output Total 1850 3530 Balance -950 -2255 Weight 102.9 kg 109.6 kg General appearance: PRESENT: no acute distress, obese, well-developed, well- nourished Head exam: PRESENT: atraumatic, normocephalic Respiratory exam: PRESENT: clear to auscultation roman. ABSENT: rales, rhonchi, wheezes Cardiovascular exam: PRESENT: RRR. ABSENT: diastolic murmur, rubs, systolic mur mur GI/Abdominal exam: PRESENT: normal bowel sounds, soft. ABSENT: distended, guarding, mass, organolmegaly, rebound, tenderness Neurological exam: PRESENT: alert - Somnolent but arousable., oriented to person, oriented to place, oriented to time, CN II-XII grossly intact. ABSENT: motor sensory deficit Results Laboratory Results: 01/07/19 04:25 01/07/19 04:25 01/06/19 01/07/19 01/07/19 14:30 04:25 04:25 WBC 14.4 H RBC 3.01 L Hgb 8.4 L Hct 26.2 L MCV 87 MCH 27.9 MCHC 32.0 RDW 14.3 H Plt Count 274 Seg Neutrophils % 59.3 Sodium 141.4 Potassium 4.4 Chloride 104 Carbon Dioxide 31 H Anion Gap 6 BUN 18 Creatinine 2.37 H Est GFR ( Amer) 33 L Glucose 72 L Calcium 8.5 Triglycerides 109 12/18/18 12/19/18 12/20/18 22:08 12:00 11:10 Creatine Kinase CK-MB (CK-2) Troponin I 0.059 0.148 0.038 01/03/19 01/03/19 21:35 21:35 Creatine Kinase 48 L CK-MB (CK-2) 0.22 Troponin I < 0.012 Impressions: KUB X-Ray 12/29/18 00:00 IMPRESSION: Nasogastric tube in the gastric body Upper GI Series 12/30/18 00:00 IMPRESSION: NARROWING AT THE GASTROJEJUNAL ANASTOMOSIS WHICH DELAYS GASTRIC EMPTYING INTO THE SMALL BOWEL. Guidance Fluoroscopy 12/31/18 00:00 IMPRESSION: SUCCESSFUL PLACEMENT OF A 5 FR DUAL LUMEN 40 CM PICC IN THE RIGHT BASILIC VEIN. Interventional Vascular Procedure 12/31/18 00:00 IMPRESSION: SUCCESSFUL PLACEMENT OF A 5 FR DUAL LUMEN 40 CM PICC IN THE RIGHT BASILIC VEIN. PICC Line Insertion 12/31/18 00:00 IMPRESSION: SUCCESSFUL PLACEMENT OF A 5 FR DUAL LUMEN 40 CM PICC IN THE RIGHT BASILIC VEIN. Assessment and Plan - Diagnosis (1) Leukocytosis Qualifiers: Qualified Code(s): D72.825 - Bandemia Is this a current diagnosis for this admission?: Yes Plan: T-max of 100.7. WBC 14,000. No bandemia. Unsure if there is any infectious process going on however patient is having mild fevers and worsening leukocytosis. He has already received more than 10 days broad-spectrum of IV antibiotics on this admission. We will order new blood cultures and follow WBC and vitals. (2) Acute kidney injury superimposed on CKD Is this a current diagnosis for this admission?: Yes Plan: Worsening renal function. Nonoliguric. Electrolytes WNL. Likely due to overdiuresis. Initially was prerenal. Likely due to hemorrhagic shock, dehydration and vancomycin. Decrease Lasix to 20 mg p.o. twice daily, monitor volume status, electrolytes and replace as needed. Avoid nephrotoxic meds. BMP tomorrow. Note: Vancomycin trough 38.4. I have discussed this with the pharmacist who told me trough is not accurate as it was drawn right after vancomycin initiation . I have changed vancomycin dosage to be dosed and managed by pharmacy (3) Hypertension Is this a current diagnosis for this admission?: Yes Plan: Optimized. Home meds are: Losartan 100 mg p.o. daily Lasix 20 mg p.o. daily Carvedilol 25 mg p.o. daily. Amlodipine 10 mg p.o. daily. Currently on metoprolol tartrate 25 mg p.o. twice daily, amlodipine 10 mg p.o. daily and Catapres and Lasix 20 mg p.o. twice daily. Continue IV hydralazine and labetalol as needed. Monitor vital status, adjust meds as needed. (4) Acute respiratory failure with hypoxia Is this a current diagnosis for this admission?: Yes Plan: Resolved. Extubated on 1027. SPO2 WNL on 2 L NC. (5) Pancreatic cancer Qualifiers: Pancreatic malignancy location: head of pancreas Qualified Code(s): C25.0 - Malignant neoplasm of head of pancreas Is this a current diagnosis for this admission?: Yes Plan: Status post distal pancreatectomy and splenectomy on 12/18/2018. Bilateral drains removed 01/06/2019. Outpatient oncology and PCP follow-up. Defer management to surgical team. Currently awaiting SNF bed. (6) Coronary artery disease Qualifiers: Coronary Disease-Associated Artery/Lesion type: [place] artery [place] vs. transplanted heart: [place] heart Associated angina: angina presence unspecified Qualified Code(s): I25.10 - Atherosclerotic heart disease of [place] coronary artery without angina pectoris Is this a current diagnosis for this admission?: Yes Plan: Denies any anginal symptoms. Continue antiplatelets, statins, beta-blockers and ARB. Outpatient PCP and cardiology follow-up. Cardiology on board. (7) Diabetes mellitus type 2 in obese Is this a current diagnosis for this admission?: Yes Plan: Patient actually hypoglycemic and his insulin requirement has been decreasing since his surgery. Hemoglobin A1c 6.7%. Continue diabetic diet, basal and sliding scale insulin. Continue Accu-Chek, hypoglycemic protocol. Decrease Lantus to 30 mg daily. Continue sliding scale. Could be started on oral hypoglycemic once kidney function is stabilized or improved. Adjust dose as needed. Outpatient PCP follow-up. (8) Gram-positive bacteremia Is this a current diagnosis for this admission?: Yes Plan: Due to staph epidermidis 1 out of 4 bottles. Sample taken from central line unsure if contamination. Central line tip culture negative. Blood cultures negative. Received >10 days of IV vancomycin and meropenem. DC antibiotics. Montior vitals. If worsening leukocytosis or febrile will culture again and restart on empiric antibiotics.
[2019-01-07 13:15] VITALS: BP 130/69
--- NOTE | 2019-01-07 13:38 | PDOC TRANSFER SUMMARY ---
Impression - Admit/DC Date/PCP Admission Date/Primary Care Provider: 12/18/18 07:[facility] Discharge Date: 01/07/19 - Discharge Diagnosis (1) Pancreatic malignancy syndrome Is this a current diagnosis for this admission?: Yes - Assessment Summary: Mr. Daniel is a 68-year-old male with known pancreatic cancer was admitted on the day of admission for elective pancreaticoduodenectomy. He underwent the surgery on the day of admission postoperatively was complicated with a postoperative bleed that required return to the operating room on the first hospital day. Bleeding was controlled he was admitted to the intensive care unit where he remained for approximately 5 days until extubation. His course was also complicated by gastric atony which resolved with ad ministration of erythromycin. Eventually he was transferred to the medical floor where he began ambulating getting out of bed on his own and this course was also some what complicated due to ascites that he had developed secondary to the metastatic pancreatic malignancy this was controlled with twice daily dosing of Lasix which improved it. His Lasix dose needs to be cut back due to a rising creatinine and that has been done. Currently he is approximately 3 weeks status post the subtotal pancreatectomy splenectomy he has been doing reasonably well on the floor he is now tolerating a regular diet and having normal bowel function. Prior to his surgery he was an insulin-dependent diabetic because of weight loss and some poor nutrition during his hospital stay his insulin requirements have been decreasing. His current plans are to return to [facility] after short course of rehabilitation where he can be cared for by his children who live out there and will pursue possible palliative chemotherapy while he is in [place]. I removed his feeding tube yesterday due to nonfunction and his right-sided Kaveh-Ramires drain. He is now still have a left-sided Kaveh-Ramires drain which will be followed in the surgery clinic here at [place] and will be removed in the next 7 to 10 days. He will be given a postop appointment in 1 week after discharge. - Additional Information Resuscitation Status: Full Code Discharge Activity: Activity As Tolerated Referrals: DARRON BECK MD [ACTIVE STAFF] - MICAH ARIAS MD [ACTIVE STAFF] - 01/13/19 1:00 pm LUIS MANUEL SINCLAIR MD [ACTIVE STAFF] - 01/09/19 11:45 am [facility],MD [Primary Care Provider] - (Patient will have to make appointment. MD does not let anyone but patient make appointment.) Home Medications: Carvedilol [Coreg 25 mg Tablet] 25 mg PO Q12 01/25/18 Furosemide [Lasix 20 mg Tablet] 60 mg PO DAILY 01/25/18 Insulin Glargine,Hum.rec.anlog [Lantus Insulin 100 Unit/mL Insulin Pen] 90 units SQ QHS 01/25/18 Losartan Potassium [Cozaar 100 mg Tablet] 100 mg PO DAILY 01/25/18 Atorvastatin Calcium [Lipitor 20 mg Tablet] 20 mg PO QHS 11/10/18 Citalopram Hydrobromide [Celexa] 40 mg PO DAILY 11/10/18 Insulin Aspart [Novolog] 15 unit SQ ACSUPPER 11/10/18 Potassium Chloride [Klor-Con M20] 20 meq PO DAILY 11/10/18 Amlodipine Besylate [Norvasc 10 mg Tablet] 10 mg PO DAILY 12/18/18 Aspirin [Ecotrin 81 mg EC Tablet] 81 mg PO DAILY 12/18/18 Oxycodone HCl 15 mg PO Q8HP PRN 12/18/18 Oxycodone HCl 20 mg PO Q12 12/18/18 History of Present Illiness History of Present Illness: RAJAT DANIEL is a 68 year old male Physical Exam Vital Signs: Temp Pulse Resp BP Pulse Ox 98.3 F 65 18 130/69 H 97 01/07/19 12:57 01/07/19 12:57 01/07/19 12:57 01/07/19 12:57 01/07/19 12:57 Intake & Output 01/06/19 01/07/19 01/08/19 06:59 06:59 06:59 Intake Total 900 1275 Output Total 1850 3530 Balance -950 -2255 Weight 102.9 kg 109.6 kg 109.6 kg Results Laboratory Results: WBC 14.4 10^3/uL (4.0-10.5) H 01/07/19 04:25 RBC 3.01 10^6/uL (4.35-5.55) L 01/07/19 04:25 Hgb 8.4 g/dL (13.5-17.0) L 01/07/19 04:25 Hct 26.2 % (37.9-51.0) L 01/07/19 04:25 MCV 87 fl (80-97) 01/07/19 04:25 MCH 27.9 pg (27.0-33.4) 01/07/19 04:25 MCHC 32.0 g/dL (32.0-36.0) 01/07/19 04:25 RDW 14.3 % (11.5-14.0) H 01/07/19 04:25 Plt Count 274 10^3/uL (150-450) 01/07/19 04:25 Lymph % (Auto) 19.6 % (13-45) 01/07/19 04:25 [place] % (Auto) 17.2 % (3-13) H 01/07/19 04:25 Eos % (Auto) 3.5 % (0-6) 01/07/19 04:25 Baso % (Auto) 0.4 % (0-2) 01/07/19 04:25 Absolute Neuts (auto) 8.6 10^3/uL (1.7-8.2) H 01/07/19 04:25 Absolute Lymphs (auto) 2.8 10^3/uL (0.5-4.7) 01/07/19 04:25 Absolute Monos (auto) 2.5 10^3/uL (0.1-1.4) H 01/07/19 04:25 Absolute Eos (auto) 0.5 10^3/uL (0.0-0.6) 01/07/19 04:25 Absolute Basos (auto) 0.1 10^3/uL (0.0-0.2) 01/07/19 04:25 Total Counted 100 12/28/18 06:00 Seg Neutrophils % 59.3 % (42-78) 01/07/19 04:25 Seg Neuts % (Manual) 83 % (42-78) H 12/28/18 06:00 Band Neutrophils % 1 % (3-5) L 12/28/18 06:00 Lymphocytes % (Manual) 8 % (13-45) L 12/28/18 06:00 Monocytes % (Manual) 7 % (3-13) 12/28/18 06:00 Eosinophils % (Manual) 1 % (0-6) 12/28/18 06:00 Basophils % (Manual) 0 % (0-2) 12/28/18 06:00 Metamyelocytes % 1 % (0-1) 12/25/18 06:00 Abs Neuts (Manual) 17.6 10^3/uL (1.7-8.2) H 12/28/18 06:00 Abs Lymphs (Manual) 1.7 10^3/uL (0.5-4.7) 12/28/18 06:00 Abs Monocytes (Manual) 1.5 10^3/uL (0.1-1.4) H 12/28/18 06:00 Absolute Eos (Manual) 0.2 10^3/uL (0.0-0.6) 12/28/18 06:00 Abs Basophils (Manual) 0.0 10^3/uL (0.0-0.2) 12/28/18 06:00 Nucleated RBCs 2 /100 WBC (0) 12/27/18 06:05 Toxic Granulation SLIGHT 12/27/18 06:05 Platelet Comment ADEQUATE 12/28/18 06:00 Polychromasia SLIGHT 12/27/18 06:05 Hypochromasia SLIGHT 12/27/18 06:05 Basophilic Stippling PRESENT 12/27/18 06:05 Anisocytosis SLIGHT 12/28/18 06:00 PT 14.6 SEC (11.4-15.4) 12/30/18 06:43 INR 1.13 12/30/18 06:43 APTT 30.1 SEC (23.5-35.8) 12/20/18 04:02 Fibrinogen 212 mg/dL (209-497) 12/18/18 22:08 Carbonic Acid 1.25 mmol/L (1.05-1.35) 12/20/18 12:30 HCO3/H2CO3 Ratio 20:1 12/20/18 12:30 ABG pH 7.41 (7.35-7.45) 12/20/18 12:30 ABG pCO2 41.4 mmHg (35-45) 12/20/18 12:30 ABG pO2 61.8 mmHg (80-100) L 12/20/18 12:30 ABG HCO3 25.8 mmol/L (20-24) H 12/20/18 12:30 ABG Total CO2 27.1 mmol/L (23-27) H 12/20/18 12:30 ABG O2 Saturation 92.0 % (94-98) L 12/20/18 12:30 ABG Base Excess 1.1 mmol/L 12/20/18 12:30 FiO2 21 12/20/18 12:30 Sodium 141.4 mmol/L (137-145) 01/07/19 04:25 Potassium 4.4 mmol/L (3.6-5.0) 01/07/19 04:25 Chloride 104 mmol/L (98-107) 01/07/19 04:25 Carbon Dioxide 31 mmol/L (22-30) H 01/07/19 04:25 Anion Gap 6 (5-19) 01/07/19 04:25 BUN 18 mg/dL (7-20) 01/07/19 04:25 Creatinine 2.37 mg/dL (0.52-1.25) H 01/07/19 04:25 Est GFR ( Amer) 33 (>60) L 01/07/19 04:25 Est GFR (Non-Af Amer) Cancelled 01/02/19 07:55 Est GFR (MDRD) Non-Af 27 (>60) L 01/07/19 04:25 Glucose 72 mg/dL (75-110) L 01/07/19 04:25 POC Glucose 92 mg/dL (70-110) 01/07/19 13:01 Hemoglobin A1c % 6.7 % (4.7-6.0) H 12/19/18 05:00 Lactic Acid 0.9 mmol/L (0.7-2.1) 12/21/18 05:57 Calcium 8.5 mg/dL (8.4-10.2) 01/07/19 04:25 Phosphorus 3.4 mg/dL (2.5-4.5) 01/03/19 05:45 Magnesium 2.2 mg/dL (1.6-2.3) 01/04/19 08:20 Total Bilirubin 0.9 mg/dL (0.2-1.3) 01/04/19 08:20 Direct Bilirubin 0.6 mg/dL (0.0-0.4) H 01/04/19 08:20 Neonat Total Bilirubin Not Reportable 01/04/19 08:20 Neonat Direct Bilirubin Not Reportable 01/04/19 08:20 Neonat Indirect Bili Not Reportable 01/04/19 08:20 AST 52 U/L (17-59) 01/04/19 08:20 ALT 27 U/L (<50) 01/04/19 08:20 Alkaline Phosphatase 188 U/L (38-126) H 01/04/19 08:20 Ammonia < 8.7 umol/L (9-33) L 01/07/19 11:03 Creatine Kinase 48 U/L (55-170) L 01/03/19 21:35 CK-MB (CK-2) 0.22 ng/mL (<4.55) 01/03/19 21:35 Troponin I < 0.012 ng/mL 01/03/19 21:35 Total Protein 6.1 g/dL (6.3-8.2) L 01/04/19 08:20 Albumin 2.4 g/dL (3.5-5.0) L 01/04/19 08:20 Prealbumin 7.0 mg/dL (17.6-36.0) L 01/03/19 05:45 Triglycerides 109 mg/dL (<150) 01/06/19 14:30 Amylase 73 U/L (30-110) 12/19/18 05:00 Lipase 243.8 U/L (23-300) 12/22/18 04:14 EGFR Cancelled 01/02/19 07:55 Time Trough Drawn 2135 01/03/19 21:35 Vancomycin Trough 11.3 ug/mL (5.0-20.0) 01/03/19 21:35 Blood Type O POSITIVE 12/31/18 11:20 Antibody Screen NEGATIVE 12/31/18 11:20 Crossmatch See Detail 12/31/18 11:20 Mass Transfus Initiated MTP INITIATED 12/18/18 20:15 Mass Transfus Discontin MTP DISCONTINUED 12/18/18 20:15 12/18/18 12/19/18 12/20/18 22:08 12:00 11:10 CK-MB (CK-2) Troponin I 0.059 0.148 0.038 01/03/19 21:35 CK-MB (CK-2) 0.22 Troponin I < 0.012 Impressions: Chest X-Ray 12/18/18 00:00 IMPRESSION: Support lines and tubes have been placed as described. Chest X-Ray 12/18/18 00:00 IMPRESSION: Lines and catheters in place, as above.. Probable tiny bibasilar effusions copyright 2010 20/20 [employer] All Rights Reserved Chest X-Ray 12/19/18 00:00 IMPRESSION: 1. No significant interval changes since examination performed earlier on the same date, 12/19/2018. No evidence of pneumothorax. 2. Support tubes and line are unchanged. Chest X-Ray 12/19/18 06:00 IMPRESSION: STABLE APPEARANCE OF THE CHEST. SUPPORT DEVICES UNCHANGED. Chest X-Ray 12/20/18 06:00 IMPRESSION: 1. Tubes and lines as above. 2. Unchanged radiographic appearance of the chest with low inspiratory lung volumes, a probable left retrocardiac opacity, and mild cardiomegaly. Chest X-Ray 12/21/18 06:00 IMPRESSION: Stable appearance of the lungs. Chest X-Ray 12/23/18 00:00 IMPRESSION: Unchanged radiographic appearance of the chest. KUB X-Ray 12/29/18 00:00 IMPRESSION: Nasogastric tube in the gastric body Upper GI Series 12/30/18 00:00 IMPRESSION: NARROWING AT THE GASTROJEJUNAL ANASTOMOSIS WHICH DELAYS GASTRIC EMPTYING INTO THE SMALL BOWEL. Guidance Fluoroscopy 12/31/18 00:00 IMPRESSION: SUCCESSFUL PLACEMENT OF A 5 FR DUAL LUMEN 40 CM PICC IN THE RIGHT BASILIC VEIN. Interventional Vascular Procedure 12/31/18 00:00 IMPRESSION: SUCCESSFUL PLACEMENT OF A 5 FR DUAL LUMEN 40 CM PICC IN THE RIGHT BASILIC VEIN. PICC Line Insertion 12/31/18 00:00 IMPRESSION: SUCCESSFUL PLACEMENT OF A 5 FR DUAL LUMEN 40 CM PICC IN THE RIGHT BASILIC VEIN. Stroke Is this a Stroke Patient?: No Stroke Pt being discharged on Anti-thrombolytic therapy?: No Reason(s) for not prescribing Anti-thrombolytic therapy:: Not indicated Reason(s) for not prescribing Anti-coagulation therapy:: Not indicated Reason(s) for not prescribing Statins therapy:: Not indicated Acute Heart Failure - Is this a Heart Failure Patient?: No 3. Anticoagulant therapy for permanect/persistent/paraoxysmal Afib or Aflutter: N/A
== END 2019-01-07 16:02 | DRG 405 ==
LOC: INOR 07:49 → EDSTATUS 10:00 → ICU 16:09 → 4N 12-27 16:49 → 3S 12-28 21:10
PROVIDERS: ADMIT Surgery; ATTEND Surgery
PROC: 07TP0ZZ Resection of Spleen, Open Approach (ICD-10-PCS; 2018-12-18)
PROC: 07BD0ZZ Excision of Aortic Lymphatic, Open Approach (ICD-10-PCS; 2018-12-18)
PROC: 0FT40ZZ Resection of Gallbladder, Open Approach (ICD-10-PCS; 2018-12-18)
PROC: 0D1A0Z4 Bypass Jejunum to Cutaneous, Open Approach (ICD-10-PCS; 2018-12-18)
PROC: 0D160ZA Bypass Stomach to Jejunum, Open Approach (ICD-10-PCS; 2018-12-18)
PROC: 06L Lower Veins, Occlusion (ICD-10-PCS; 2018-12-18)
PROC: 0DQU0ZZ Repair Omentum, Open Approach (ICD-10-PCS; 2018-12-18)
PROC: 0FQ00ZZ Repair Liver, Open Approach (ICD-10-PCS; 2018-12-18)
PROC: 0FQG0ZZ Repair Pancreas, Open Approach (ICD-10-PCS; 2018-12-18)
PROC: 0W9F30Z Drainage of Abdominal Wall with Drainage Device, Percutaneous Approach (ICD-10-PCS; 2018-12-18)
PROC: 3E1M38Z Irrigation of Peritoneal Cavity using Irrigating Substance, Percutaneous Approach (ICD-10-PCS; 2018-12-18)
PROC: 06HN33Z Insertion of Infusion Device into Left Femoral Vein, Percutaneous Approach (ICD-10-PCS; 2018-12-18)
PROC: 06JY3ZZ Inspection of Lower Vein, Percutaneous Approach (ICD-10-PCS; 2018-12-18)
PROC: 30243K1 Transfusion of Nonautologous Frozen Plasma into Central Vein, Percutaneous Approach (ICD-10-PCS; 2018-12-18)
PROC: 30243N1 Transfusion of Nonautologous Red Blood Cells into Central Vein, Percutaneous Approach (ICD-10-PCS; 2018-12-18)
PROC: 0FBG0ZZ Excision of Pancreas, Open Approach (ICD-10-PCS; principal; 2018-12-18 10:00)
PROC: 30243R1 Transfusion of Nonautologous Platelets into Central Vein, Percutaneous Approach (ICD-10-PCS; 2018-12-19)
PROC: 5A09557 Assistance with Respiratory Ventilation, Greater than 96 Consecutive Hours, Continuous Positive Airway Pressure (ICD-10-PCS; 2018-12-20)
PROC: 02HV33Z Insertion of Infusion Device into Superior Vena Cava, Percutaneous Approach (ICD-10-PCS; 2018-12-31)
PROC: B518ZZA Fluoroscopy of Superior Vena Cava, Guidance (ICD-10-PCS; 2018-12-31)
PROC: B548ZZA Ultrasonography of Superior Vena Cava, Guidance (ICD-10-PCS; 2018-12-31)
DX: C25.7 Malignant neoplasm of other parts of pancreas (principal); K66.1 Hemoperitoneum; A41.9 Sepsis, unspecified organism; J15.212 Pneumonia due to Methicillin resistant Staphylococcus aureus; J96.01 Acute respiratory failure with hypoxia; R65.21 Severe sepsis with septic shock; C77.2 Secondary and unspecified malignant neoplasm of intra-abdominal lymph nodes; K91.840 Postprocedural hemorrhage of a digestive system organ or structure following a digestive system procedure; I97.121 Postprocedural cardiac arrest following other surgery; D62 Acute posthemorrhagic anemia; G93.49 Other encephalopathy; K94.23 Gastrostomy malfunction; N17.9 Acute kidney failure, unspecified; R18.8 Other ascites; D69.59 Other secondary thrombocytopenia; D72.825 Bandemia; I25.10 Atherosclerotic heart disease of native coronary artery without angina pectoris; F32.9 Major depressive disorder, single episode, unspecified; N18.3 Chronic kidney disease, stage 3 (moderate); G47.33 Obstructive sleep apnea (adult) (pediatric); B19.20 Unspecified viral hepatitis C without hepatic coma; K74.69 Other cirrhosis of liver; E11.22 Type 2 diabetes mellitus with diabetic chronic kidney disease; I12.9 Hypertensive chronic kidney disease with stage 1 through stage 4 chronic kidney disease, or unspecified chronic kidney disease; Z79.899 Other long term (current) drug therapy; Z79.4 Long term (current) use of insulin; Z88.0 Allergy status to penicillin; Z88.5 Allergy status to narcotic agent
CPT/HCPCS: 00790; 36415; 36430; 36569; 71045; 74018; 74247; 76937; 77001; 80048; 80053; 80202; 82140; 82150; 82550; 82553; 82565; 82803; 82962; 83036; 83605; 83690; 83735; 84100; 84132; 84134; 84478; 84484; 85025; 85027; 85384; 85610; 85730; 86850; 86900; 86901; 86920; 87040; 87070; 87077; 87150; 87186; 87205; 88304; 88305; 88309; 88313; 88331; 88341; 88342; 92950; 93005; 93010; 94002; 94003; 94660; 99231; 99232; 99291; 99292; C1751; C1894; C9250; J0171; J0330; J0360; J0610; J0690; J1100; J1170; J1364; J1642; J1644; J1815; J1885; J1940; J2185; J2250; J2270; J2370; J2405; J2704; J2765; J2800; J2997; J3010; J3370; J3480; J3490; J7030; J7042; J7050; J7060; J7120; J7620; P9016; P9017; P9035; P9041; P9047; S0028

== ENCOUNTER → 2019-01-13 | Outpatient (CLI) | payer OTHER, MEDICARE ==
[2019-01-13 14:18] LABS: ABSOLUTE BASOPHILS # (AUTO) 0.1 10^3/uL (0.0-0.2); ABSOLUTE EOSINOPHILS # (AUTO) 0.5 10^3/uL (0.0-0.6); ABSOLUTE LYMPHOCYTES (AUTO) 2.3 10^3/uL (0.5-4.7); ABSOLUTE MONOCYTES (AUTO) 2.1 10^3/uL (0.1-1.4); ABSOLUTE NEUT (AUTO) 6.4 10^3/uL (1.7-8.2); BASOPHILS % (AUTO) 0.5 % (0-2); EOSINOPHILS % (AUTO) 4.1 % (0-6); HEMATOCRIT 25.2 % (37.9-51.0); HEMOGLOBIN 8.3 g/dL (13.5-17.0); LYMPHOCYTES % (AUTO) 20.4 % (13-45); MEAN CORPUSCULAR VOLUME 85 fl (80-97); MONOCYTES % (AUTO) 18.3 % (3-13); PLATELET COUNT 245 10^3/uL (150-450); RED BLOOD COUNT 2.96 10^6/uL (4.35-5.55); RED CELL DISTRIBUTION WIDTH 14.2 % (11.5-14.0); SEGMENTED NEUTROPHILS % (AUTO) 56.7 % (42-78); TOTAL CELLS COUNTED % (AUTO) 100 %; WHITE BLOOD COUNT 11.2 10^3/uL (4.0-10.5)
[2019-01-13 14:27] LABS: ALBUMIN 2.5 g/dL (3.5-5.0); ALKALINE PHOSPHATASE 225 U/L (38-126); ANION GAP 5 (5-19); ASPARTATE AMINO TRANSFERASE 45 U/L (17-59); BILIRUBIN,DIRECT 0.4 mg/dL (0.0-0.4); BILIRUBIN,TOTAL 0.6 mg/dL (0.2-1.3); BLOOD UREA NITROGEN 13 mg/dL (7-20); CALCIUM 7.9 mg/dL (8.4-10.2); CARBON DIOXIDE 31 mmol/L (22-30); CHLORIDE 101 mmol/L (98-107); GLUCOSE 142 mg/dL (75-110); POTASSIUM 4.6 mmol/L (3.6-5.0); TOTAL PROTEIN 6.3 g/dL (6.3-8.2)
== END ==
LOC: PNR 13:13
PROVIDERS: ATTEND Family Medicine
DX: E11.22 Type 2 diabetes mellitus with diabetic chronic kidney disease (principal); I10 Essential (primary) hypertension
CPT/HCPCS: 80053; 83036; 85025